=== PATIENT | female | born 1950 | race Caucasian/White ===

== ENCOUNTER 2019-02-03 17:10 | Observation (INO) | payer BC, MEDICARE ==
[2019-02-03] MEDS ORDERED: MORPHINE SULFATE 4 MG/ML SYRINGE IM STA (17:42)
--- NOTE | 2019-02-03 17:46 | ED ---
General Adult HPI - General Chief complaint: Back Pain/Injury Stated complaint: Back pain Time Seen by Provider: 02/03/19 17:26 Source: patient, EMS, RN notes reviewed, old records reviewed Mode of arrival: EMS Limitations: physical limitation - History of Present Illness Initial comments: 68-year-old female patient past medical history of chronic lumbar back pain, CHF, COPD on home 02. hypertension, status post CABG presents to ED with exacerbation of lumbar back pain for approximately 2 months. Patient denies any recent falls or trauma. Patient states that this pain has been getting worse as time period. Patient reports that at times radiates down her right posterior leg. Patient states that she ambulates with a walker at home. Patient denies any saddle anesthesia, loss of bowel or bladder control, IV drug use, fevers or chills Systemic: Pt denies fatigue, fever/chills, rash. Pt denies weakness, night sweats, weight loss. Neuro: Pt denies headache, visual disturbances, syncope or pre-syncope. HEENT: Pt denies ocular discharge or irritation, otalgia, rhinorrhea, pharyngitis or notable lymphadenopathy. Cardiopulmonary: Pt denies chest pain, SOB, heart palpitations, dyspnea on exertion. Abdominal/GI: Pt denies abdominal pain, n/v/d. : Pt denies dysuria, burning w/ urination, frequency/urgency. Denies new onset urinary or bowel incontinence. MSK: Pt denies loss of strength or function in extremities. Neuro: Pt denies new onset weakness, paresthesias. - Related Data Home Medications Medication Instructions Recorded Confirmed Allopurinol [Zyloprim] 100 mg PO DAILY 02/03/19 02/03/19 Aspirin [[place] Aspirin EC] 81 mg PO DAILY 02/03/19 02/03/19 Carbidopa/Levodopa [Sinemet 25-250 3 - 4 tab PO DAILY PRN 02/03/19 02/03/19 mg] Escitalopram [Lexapro] 20 mg PO DAILY 02/03/19 02/03/19 Gabapentin [Neurontin] 100 mg PO TID 02/03/19 02/03/19 Hydrocodone/Acetaminophen [[place] 1 tab PO Q6HR PRN 02/03/19 02/03/19 7.5-325] Isosorbide Mononitrate ER [Imdur] 30 mg PO DAILY 02/03/19 02/03/19 Meclizine [Antivert] 25 - 50 mg PO BID 02/03/19 02/03/19 Metoprolol Succinate [Toprol XL] 25 mg PO DAILY 02/03/19 02/03/19 Modafinil [Provigil] 100 mg PO DAILY PRN 02/03/19 02/03/19 Omeprazole [PriLOSEC] 20 mg PO AC-BID 02/03/19 02/03/19 rOPINIRole HCL [Requip] 2 mg PO DAILY 02/03/19 02/03/19 traMADol HCl [Ultram] 50 mg PO BID PRN 02/03/19 02/03/19 Allergies Allergy/AdvReac Type Severity Reaction Status Date / Time Fish Containing Products Allergy Verified 02/03/19 18:46 [Fish] Review of Systems ROS Statement: Those systems with pertinent positive or pertinent negative responses have been documented in the HPI. ROS Other: All systems not noted in ROS Statement are negative. Past Medical History Past Medical History: Cancer, Heart Failure, Hypertension, Myocardial Infarction ([place]) Additional Past Medical History / Comment(s): Back pain History of Any Multi-Drug Resistant Organisms: None Reported Past Surgical History: Coronary Bypass/CABG, Pacemaker Additional Past Surgical History / Comment(s): R Nephrectomy Past Psychological History: Anxiety Smoking Status: Never smoker Past Alcohol Use History: None Reported Past Drug Use History: None Reported General Exam - General Exam Comments Initial Comments: Constitutional: NAD, AOX3, Pt has pleasant affect. HEENT: NC/AT, trachea midline, neck supple, no lymphadenopathy. Posterior pharynx non erythematous, without exudates. External ears appear normal, without discharge. Mucous membranes moist. Eyes PERRLA, EOM intact. There is no scleral icterus. No pallor noted. Cardiopulmonary: RRR, no murmurs, rubs or gallops, no JVD noted. Lungs CTAB in anterior and posterior adame. No peripheral edema. Abdominal exam: Abdomen soft and non-distended. Abdomen non-tender to palpation in all 4 quadrants. Bowel sounds active in LLQ. No hepatosplenomegaly. No ecchymosis Neuro: CN II-XII grossly intact. No nuchal rigidity. MSK: Lumbar spine mildly tender to palpation, no erythema or dischrage. Cervical thoracic spine nontender to palpation. No posterior calf tenderness bilaterally, homans sign negative bilaterally. Posterior tibialis and radial pulse +1 bilaterally. Sensation intact in upper and lower extremities. Full active ROM in upper and lower extremities, 5/5 stregnth. Limitations: physical limitation Course Vital Signs 02/03/19 02/03/19 02/03/19 17:31 20:41 22:26 Temperature 97.8 F Pulse Rate 70 82 74 Respiratory 18 18 16 Rate Blood Pressure 107/89 151/74 137/74 O2 Sat by Pulse 98 99 97 Oximetry Medical Decision Making - Medical Decision Making 68-year-old female patient past medical history of chronic lumbar back pain, CHF, COPD on home 02. hypertension, status post CABG presents to ED with exacerbation of lumbar back pain for approximately 2 months. Patient denies any recent falls or trauma. Patient states that this pain has been getting worse as time period. Patient reports that at times radiates down her right posterior leg. Patient states that she ambulates with a walker at home. Patient vital signs stable, afebrile. PHysical exam displayed: Lumbar spine mildly tender to palpation, no erythema or dischrage. Laboratory investigations revealed platelets of 77. CMP revealed mild hyperkalemia of 5.4. Plain film of lumbar spine and lumbar spine CT revealed nonacute L1 compression fracture. Patient unable to ambulate due to pain in back. Patient to be discharged for further evaluation and orthospine consult as well as PT/OT consult. Case discussed with Dr. Romano. - Lab Data Result diagrams: 02/03/19 19:25 02/03/19 19:25 Lab Results 02/03/19 02/03/19 Range/Units 19:25 19:25 WBC 4.3 (3.8-10.6) k/uL RBC 3.39 L (3.80-5.40) m/uL Hgb 11.0 L (11.4-16.0) gm/dL Hct 35.2 (34.0-46.0) % MCV 103.8 H (80.0-100.0) fL MCH 32.5 (25.0-35.0) pg MCHC 31.3 (31.0-37.0) g/dL RDW 16.7 H (11.5-15.5) % Plt Count 77 L (150-450) k/uL Neutrophils % 57 % Lymphocytes % 24 % Monocytes % 8 % Eosinophils % 7 % Basophils % 0 % Neutrophils # 2.5 (1.3-7.7) k/uL Lymphocytes # 1.1 (1.0-4.8) k/uL Monocytes # 0.3 (0-1.0) k/uL Eosinophils # 0.3 (0-0.7) k/uL Basophils # 0.0 (0-0.2) k/uL Hypochromasia Moderate Anisocytosis Slight Macrocytosis Moderate Sodium 142 (137-145) mmol/L Potassium 5.4 H (3.5-5.1) mmol/L Chloride 113 H (98-107) mmol/L Carbon Dioxide 24 (22-30) mmol/L Anion Gap 5 mmol/L BUN 35 H (7-17) mg/dL Creatinine 0.95 (0.52-1.04) mg/dL Est GFR (CKD-EPI)AfAm 71 (>60 ml/min/1.73 sqM) Est GFR (CKD-EPI)NonAf 61 (>60 ml/min/1.73 sqM) Glucose 82 (74-99) mg/dL Calcium 8.8 (8.4-10.2) mg/dL Total Bilirubin 0.7 (0.2-1.3) mg/dL AST 38 H (14-36) U/L ALT 23 (9-52) U/L Alkaline Phosphatase 183 H (38-126) U/L Total Protein 6.6 (6.3-8.2) g/dL Albumin 2.9 L (3.5-5.0) g/dL Disposition Clinical Impression: Compression fracture of L1 lumbar vertebra Disposition: ADMITTED IP TO THIS HOSP Condition: Fair Is patient prescribed a controlled substance at d/c from ED?: No
--- NOTE | 2019-02-03 18:17 | XR ---
EXAMINATION TYPE: XR lumbar spine 2 or 3V DATE OF EXAM: 02/03/2019 COMPARISON: NONE HISTORY: Low back pain TECHNIQUE: 3 views FINDINGS: The vertebra have normal alignment. There is degenerative disc spaces are intact throughout the lumbar spine. There is 25% anterior wedging of L1 vertebra that appears old. Sacroiliac joints a re intact. IMPRESSION: Moderate multilevel spondylosis. Old mild compression fracture L1. No acute fracture seen .
[2019-02-03] MEDS ORDERED: KETOROLAC 30 MG/ML 1 ML VIAL IVP STA (18:55)
[2019-02-03] MEDS ORDERED: MORPHINE SULFATE 4 MG/ML SYRINGE IV STA (19:59)
[2019-02-03] MEDS ORDERED: SODIUM CHLORIDE 0.9% 500 ML 500 ML IV STA (20:38)
[2019-02-03 20:55] LABS: Anisocytosis Slight; Basophils % (A) 0 %; Eosinophils # (A) 0.3 k/uL (0-0.7); Eosinophils % (A) 7 %; HCT 35.2 % (34.0-46.0); Hypochromasia Moderate; Lymphocytes # (A) 1.1 k/uL (1.0-4.8); Lymphocytes % (A) 24 %; MCH 32.5 pg (25.0-35.0); MCHC 31.3 g/dL (31.0-37.0); MCV 103.8 fL (80.0-100.0); Macrocytosis Moderate; Mean Platelet Volume 8.4; Monocytes # (A) 0.3 k/uL (0-1.0); Monocytes % (A) 8 %; Neutrophils # (A) 2.5 k/uL (1.3-7.7); Neutrophils % (A) 57 %; RBC 3.39 m/uL (3.80-5.40); RDW 16.7 % (11.5-15.5); WBC 4.3 k/uL (3.8-10.6)
[2019-02-03 20:56] LABS: Platelet Count 77 k/uL (150-450)
[2019-02-03 21:02] LABS: Albumin 2.9 g/dL (3.5-5.0); Calcium 8.8 mg/dL (8.4-10.2); Potassium 5.4 mmol/L (3.5-5.1); Total Bilirubin 0.7 mg/dL (0.2-1.3); Total Protein 6.6 g/dL (6.3-8.2)
--- NOTE | 2019-02-03 21:31 | CT ---
EXAMINATION TYPE: CT lumbar spine wo con DATE OF EXAM: 02/03/2019 9:02 PM COMPARISON: None HISTORY: pain lumbar region CT DLP: 1849 mGycm Automated exposure control for dose reduction was used. Unenhanced CT of the lumbar spine was performed. Bone and soft tissue window settings are submitted as well as coronal and sagittal reconstructions. There is degenerative disc space narrowing throughout the lumbar spine. There is hypertrophic spur fo rmation. There is multilevel vacuum disc. There is 20% compression deformity of L1 vertebral body. Th is appears old. There is no lumbar paraspinal mass. There is some pleural thickening and infiltrate a nd atelectasis at the posterior lung bases. There is no lumbar paraspinal mass. There is some muscle atrophy. There is apparent neurostimulator i mplanted posteriorly. IMPRESSION: Multilevel spondylotic changes. Old mild L1 compression fracture. No acute fracture seen.
[2019-02-03] MEDS ORDERED: ACETAMINOPHEN TAB 325 MG TAB PO PRN (22:07)
[2019-02-03] MEDS ORDERED: NALOXONE 0.4 MG/ML 1 ML VIAL IV PRN (22:07)
[2019-02-03] MEDS ORDERED: MODAFINIL 100 MG TAB PO PRN (23:33)
--- NOTE | 2019-02-03 23:47 | P.HPIM ---
History of Present Illness H&P Date: 02/03/19 Chief Complaint: right thigh pain , low back pain 5-year-old female with history of congestive heart failure, CAD status post CABG. And chronic low back pain. Patient presented to the hospital with gradual worsening of her low back pain. She claims that she had 8-10 falls over the past year she thinks is due to her narcolepsy as she falls asleep sometimes when she doesn't take her medications. Her last fall was 2 months ago. She denies sustaining any injuries during the last fall. However since then she continued to have right thigh pain radiating to the right foot and across to her back. She rated the pain as 10 out of 10 in severity symptoms improves with Aleve but so bad that's preventing her from sleeping. She denies any associated numbness or tingling in her feet. She uses a walker to ambulate at home for recently she's been having increased diffic ulties and walking to the bathroom due to severe pain. She otherwise denies any fevers or chills abdominal pain or chest pain denies any changes in her bowel habits nausea or vomiting Computed tomography scan of the lumbar spine done in the ED showed old mild compression fracture of L1. Patient admitted for pain control and evaluation by orthopedics Review of Systems Pertinent positives as noted in HPI. All other systems were reviewed and are negative Past Medical History Past Medical History: Cancer, Heart Failure, Hypertension, Myocardial Infarction ([place]) Additional Past Medical History / Comment(s): Back pain History of Any Multi-Drug Resistant Organisms: None Reported Past Surgical History: Coronary Bypass/CABG, Pacemaker Additional Past Surgical History / Comment(s): R Nephrectomy Past Psychological History: Anxiety Smoking Status: Never smoker Past Alcohol Use History: None Reported Past Drug Use History: None Reported - Past Family History Family Family Medical History: Coronary Artery Disease (CAD) Medications and Allergies Home Medications Medication Instructions Recorded Confirmed Type Allopurinol [Zyloprim] 100 mg PO DAILY 02/03/19 02/03/19 History Aspirin [[place] Aspirin EC] 81 mg PO DAILY 02/03/19 02/03/19 History Carbidopa/Levodopa [Sinemet 25-250 3 - 4 tab PO DAILY PRN 02/03/19 02/03/19 History mg] Escitalopram [Lexapro] 20 mg PO DAILY 02/03/19 02/03/19 History Gabapentin [Neurontin] 100 mg PO TID 02/03/19 02/03/19 History Hydrocodone/Acetaminophen [[place] 1 tab PO Q6HR PRN 02/03/19 02/03/19 History 7.5-325] Isosorbide Mononitrate ER [Imdur] 30 mg PO DAILY 02/03/19 02/03/19 History Meclizine [Antivert] 25 - 50 mg PO BID 02/03/19 02/03/19 History Metoprolol Succinate [Toprol XL] 25 mg PO DAILY 02/03/19 02/03/19 History Modafinil [Provigil] 100 mg PO DAILY PRN 02/03/19 02/03/19 History Omeprazole [PriLOSEC] 20 mg PO AC-BID 02/03/19 02/03/19 History rOPINIRole HCL [Requip] 2 mg PO DAILY 02/03/19 02/03/19 History traMADol HCl [Ultram] 50 mg PO BID PRN 02/03/19 02/03/19 History Allergies Allergy/AdvReac Type Severity Reaction Status Date / Time Fish Containing Products Allergy Verified 02/03/19 18:46 [Fish] Physical Exam Vitals: Vital Signs Temp Pulse Resp BP Pulse Ox 02/03/19 22:26 74 16 137/74 97 02/03/19 20:41 82 18 151/74 99 02/03/19 17:31 97.8 F 70 18 107/89 98 Intake and Output 02/03/19 02/03/19 02/03/19 06:59 14:59 22:59 Other: Weight 118.841 kg Constitutional: No acute distress, conversant, pleasant, morbidly obese Eyes: Anicteric sclerae, moist conjunctiva, no lid-lag Pupils equal round reactive to light ENMT: NC/AT Oropharynx clear, no erythema, exudates Neck: Supple, FROM, no masses, or JVD No carotid bruits No thyromegaly Lungs: Clear to auscultation Clear to percussion Normal respiratory effort, no accessory muscle use Cardiovascular: Heart regular in rate and rhythm, No murmurs, gallops, or rubs No peripheral edema Abdominal: Soft, obese limiting exam Nontender, no guarding, rebound or rigidity Abdomen moving with respiration Normoactive bowel sounds No palpable mass No abdominal wall hernia noted Skin: Chronic skin changes of her bilateral legs Normal temperature, tone, texture, turgor No induration No subcutaneous nodules No rash, lesions No ulcers Extremities: No digital cyanosis No clubbing Pedal pulses intact and symmetrical Radial pulses intact and symmetrical No calf tenderness Psychiatric: Alert and oriented to person, place and time Appropriate affect fair judgment Neuro Muscles Strength 4/5 in right lateral upper extremity and left lower extremity. Limited exam over right lower extremity due to severe pain. Straight leg raising was positive early on over the right leg Sensation to light touch grossly present throughout Cranial nerves II-XII grossly intact No focal sensory deficits Lymphatics: no palpable cervical or supraclavicular , or inguinal lymph nodes Results CBC & Chem 7: 02/03/19 19:25 02/03/19 19:25 Labs: Abnormal Lab Results - Last 24 Hours (Table) 02/03/19 02/03/19 Range/Units 19:25 19:25 RBC 3.39 L (3.80-5.40) m/uL Hgb 11.0 L (11.4-16.0) gm/dL MCV 103.8 H (80.0-100.0) fL RDW 16.7 H (11.5-15.5) % Plt Count 77 L (150-450) k/uL Potassium 5.4 H (3.5-5.1) mmol/L Chloride 113 H (98-107) mmol/L BUN 35 H (7-17) mg/dL AST 38 H (14-36) U/L Alkaline Phosphatase 183 H (38-126) U/L Albumin 2.9 L (3.5-5.0) g/dL Assessment and Plan Assessment: 68-year-old female with history of CAD, CABG, hypertension, CHF admitted under observation with anticipated length of stay less than 48 hours due to severe intractable lower back pain and right thigh pain, this been going on for 2 months and getting worse. Patient admitted for orthopedic evaluation. Computed tomography scan of the spine showed old compression fracture of L1. Plan: Intractable low back pain Pain control with morphine Orthopedic evaluation pending CT of the lumbar spine showed old mild compression fracture of L1 Mild hyperkalemia Continue to monitor, repeat levels in the morning Chronic conditions currently stable Hypertension Restless leg CAD status post CABG Continue home meds Morbid obesity, debility Patient uses assistive device walker for ambulation DVT prophylaxis heparin subcu 3 times a day Surrogate decision-maker: Patient CODE STATUS: Full code Discussed with: Patient, ER, RN Anticipated discharge: <48- hours Anticipated discharge place: home A total of 55minutes was spent on the care of this complex patient more than 50% of the time was spent in counseling and care coordination.
[2019-02-04] MEDS ORDERED: HEPARIN SODIUM,PORCINE 5,000 UNIT/ML 1 ML VIAL SQ SCH
[2019-02-04] MEDS: MORPHINE SULFATE 4 MG/ML SYRINGE IV PRN ×3 (06:25→22:44)
[2019-02-04] MEDS: ISOSORBIDE MONONITRATE ER 30 MG TAB.ER.24H PO SCH (07:33)
[2019-02-04] MEDS: METOPROLOL SUCCINATE (ER) 25 MG TAB.ER.24H PO SCH (07:33)
[2019-02-04] MEDS: ASPIRIN 81 MG PO SCH (07:33)
[2019-02-04] MEDS: GABAPENTIN 100 MG CAP PO SCH ×3 (07:33→21:29)
[2019-02-04] MEDS: PANTOPRAZOLE 40 MG TABLET PO SCH ×2 (07:33→16:23)
[2019-02-04] MEDS: ESCITALOPRAM 20 MG TAB PO SCH (07:34)
[2019-02-04] MEDS: ALLOPURINOL 100 MG TAB PO SCH (07:34)
[2019-02-04 07:41] LABS: Calcium 8.7 mg/dL (8.4-10.2)
[2019-02-04 07:43] LABS: Anisocytosis Slight; Basophils % (A) 0 %; Eosinophils # (A) 0.3 k/uL (0-0.7); Eosinophils % (A) 8 %; HCT 32.4 % (34.0-46.0); HGB 10.5 gm/dL (11.4-16.0); Hypochromasia Slight; Lymphocytes % (A) 25 %; MCH 33.9 pg (25.0-35.0); MCHC 32.5 g/dL (31.0-37.0); MCV 104.3 fL (80.0-100.0); Macrocytosis Moderate; Mean Platelet Volume 7.8; Monocytes # (A) 0.4 k/uL (0-1.0); Monocytes % (A) 9 %; Neutrophils # (A) 2.2 k/uL (1.3-7.7); Neutrophils % (A) 54 %; RBC 3.11 m/uL (3.80-5.40); RDW 17.1 % (11.5-15.5)
[2019-02-04 07:46] LABS: Platelet Count 77 k/uL (150-450)
[2019-02-04] MEDS: HYDROcodone/APAP 7.5-325MG 1 EACH TAB PO PRN ×2 (10:47→16:05)
--- NOTE | 2019-02-04 11:59 | P.PN ---
Subjective Progress Note Date: 02/04/19 The patient still in bed when seen and examined, reports that she has not worked with physical therapy as yet, still complain of lower back and right thigh pain moderate rated at a 5. Reports her baseline she ambulates with a walker at home unassisted. She also does have as we are at home and it has a caregiver that comes out at least once a day Thursday through Fridays. No acute events overnight Objective - Vital Signs Vital signs: Vital Signs Temp 98.6 F 02/04/19 06:50 Pulse 75 02/04/19 06:50 Resp 14 02/04/19 06:50 BP 143/69 02/04/19 06:50 Pulse Ox 96 02/04/19 06:50 Intake & Output 02/03/19 02/04/19 02/04/19 18:59 06:59 18:59 Intake Total 90 420 Balance 90 420 Weight 118.841 kg Intake: Oral 90 420 Other: # Voids 2 - Exam Constitutional: No acute distress, conversant, pleasant Eyes: Anicteric sclerae, moist conjunctiva, no lid-lag, PERRLA ENMT: NC/AT,Oropharynx clear, no erythema, exudates Neck:Supple, FROM, no masses, or JVD, No carotid bruits; No thyromegaly Lungs: Clear to auscultation, Clear to percussion, Normal respiratory effort, no accessory muscle use Cardiovascular: Heart regular in rate and rhythm, No murmurs, gallops, or rubs no peripheral edema Abdominal: Soft Nontender, nom distended, no guarding, no rebound or rigidity, Normoactive bowel sounds No hepatomegaly, No splenomegaly, No palpable mass No abdominal wall hernia noted Skin: Normal temperature, tone, texture, turgor, No induration No subcutaneous nodules, No rash, lesions, No ulcers Psychiatric: Alert and oriented to person, place and time, Appropriate affect Intact judgement Neuro: Muscles Strength 5/5 in all 4 extremities, Sensation to light touch grossly present throughout, Cranial nerves II-XII grossly intact. No focal sensory deficits - Labs CBC & Chem 7: 02/04/19 06:27 02/04/19 06:27 Labs: Abnormal Lab Results - Last 24 Hours (Table) 02/03/19 02/03/19 02/04/19 Range/Units 19:25 19:25 06:27 RBC 3.39 L (3.80-5.40) m/uL Hgb 11.0 L (11.4-16.0) gm/dL Hct (34.0-46.0) % MCV 103.8 H (80.0-100.0) fL RDW 16.7 H (11.5-15.5) % Plt Count 77 L (150-450) k/uL Potassium 5.4 H (3.5-5.1) mmol/L Chloride 113 H 112 H (98-107) mmol/L BUN 35 H 30 H (7-17) mg/dL Glucose 73 L (74-99) mg/dL AST 38 H (14-36) U/L Alkaline Phosphatase 183 H (38-126) U/L Albumin 2.9 L (3.5-5.0) g/dL 02/04/19 Range/Units 06:27 RBC 3.11 L (3.80-5.40) m/uL Hgb 10.5 L (11.4-16.0) gm/dL Hct 32.4 L (34.0-46.0) % MCV 104.3 H (80.0-100.0) fL RDW 17.1 H (11.5-15.5) % Plt Count 77 L (150-450) k/uL Potassium (3.5-5.1) mmol/L Chloride (98-107) mmol/L BUN (7-17) mg/dL Glucose (74-99) mg/dL AST (14-36) U/L Alkaline Phosphatase (38-126) U/L Albumin (3.5-5.0) g/dL Assessment and Plan (1) Intractable low back pain Narrative/Plan: * Continue pain control with morphine and Neurontin/hydrocodone * Awaiting orthopedic eval Current Visit: Yes Status: Acute Code(s): M54.5 - LOW BACK PAIN SNOMED Code(s): 82064997221452579 (2) Compression fracture of L1 lumbar vertebra Narrative/Plan: * Awaiting orthopedic evaluation consider MRI * CT suggesting 20% compression deformity of L1 vertebral body that appears old Current Visit: Yes Status: Acute Code(s): S32.010A - [place] COMPRESSION FRACTURE OF FIRST LUMBAR VERTEBRA, INIT SNOMED Code(s): 497734970 (3) Hyperkalemia Narrative/Plan: * Resolved Current Visit: Yes Status: Resolved Code(s): E87.5 - HYPERKALEMIA SNOMED Code(s): 13997876 (4) Essential hypertension Narrative/Plan: * Blood pressure stable controlled on current regimen of metoprolol and Imdur Current Visit: Yes Status: Acute Code(s): I10 - ESSENTIAL (PRIMARY) HYPERTENSION SNOMED Code(s): 05494864 Plan: * Disposition * Follow-up with PT OT recommendations follow-up evaluation by orthopedic surgery
--- NOTE | 2019-02-04 12:23 | P.CNOR ---
History of Present Illness - [facility] Consult date: 02/04/19 Requesting physician: Brando Farnsworth Consult reason: fracture (L1 compression fracture deformity), low back pain History of present illness: Patient is a very pleasant 68-year-old female who is seen and examined at bedside for further evaluation of ongoing low back pain with some lower extremity radiculopathy. She states her back pain has been worsening over the past 2 months. She has sustained a few falls over the past couple months but does not know the exact timing. She is unaware of any previous fracture in her lumbar spine. She does have some pain in the right buttock that radiates down the right posterior thigh. At this time she states she does not want to undergo any surgical intervention or lumbar spine. She does have some difficulty with ambulation in the outpatient setting using a walker to aid in ambulation. She has had increased difficulty ambulation given her back pain. She does have a history of CABG performed in 2004. She does have some trophic skin changes bilateral lower extremities. She states her back pain is severe and exacerbated with coughing, sneezing, and any movements of the lumbar spine. Her pain is better controlled while in bed. She presented to the emergency department yesterday, 02/03/2015, for further evaluation due to her pain. X-rays of lumbosacral spine CT of the lumbar spine was performed. Imaging shows evidence of an L1 compression fracture deformity which they felt is chronic. Patient states she was never previously treated for a spine fracture. Patient states she does have an appointment with the spine surgeon at [facility]. She does have a history of bladder stimulator placement. Past Medical History Past Medical History: Cancer, Heart Failure, Hypertension, Myocardial Infarction ([place]) Additional Past Medical History / Comment(s): Back pain Last Myocardial Infarction Date:: 2004 History of Any Multi-Drug Resistant Organisms: None Reported Past Surgical History: Coronary Bypass/CABG, Pacemaker Additional Past Surgical History / Comment(s): R Nephrectomy Type of Cardiac Device: Permanent Pacemaker Device Placement Date:: 2006 Past Psychological History: Anxiety Smoking Status: Never smoker Past Alcohol Use History: None Reported Past Drug Use History: None Reported - Past Family History Family Family Medical History: Coronary Artery Disease (CAD) Medications and Allergies Home Medications Medication Instructions Recorded Confirmed Type Allopurinol [Zyloprim] 100 mg PO DAILY 02/03/19 02/03/19 History Aspirin [[place] Aspirin EC] 81 mg PO DAILY 02/03/19 02/03/19 History Carbidopa/Levodopa [Sinemet 25-250 3 - 4 tab PO DAILY PRN 02/03/19 02/03/19 History mg] Escitalopram [Lexapro] 20 mg PO DAILY 02/03/19 02/03/19 History Gabapentin [Neurontin] 100 mg PO TID 02/03/19 02/03/19 History Hydrocodone/Acetaminophen [[place] 1 tab PO Q6HR PRN 02/03/19 02/03/19 History 7.5-325] Isosorbide Mononitrate ER [Imdur] 30 mg PO DAILY 02/03/19 02/03/19 History Meclizine [Antivert] 25 - 50 mg PO BID 02/03/19 02/03/19 History Metoprolol Succinate [Toprol XL] 25 mg PO DAILY 02/03/19 02/03/19 History Modafinil [Provigil] 100 mg PO DAILY PRN 02/03/19 02/03/19 History Omeprazole [PriLOSEC] 20 mg PO AC-BID 02/03/19 02/03/19 History rOPINIRole HCL [Requip] 2 mg PO DAILY 02/03/19 02/03/19 History traMADol HCl [Ultram] 50 mg PO BID PRN 02/03/19 02/03/19 History Allergies Allergy/AdvReac Type Severity Reaction Status Date / Time Fish Containing Products Allergy Verified 02/03/19 18:46 [Fish] Physical Examination Physical exam: Patient is awake, alert, and oriented 3 Vital signs stable Good chest excursion with deep inspiration and expiration Examination of lumbar spine reveals skin is intact with no abrasions, lac erations, or bruises; no erythema, purulence or signs of infection Significant pain with palpation along the midline of the upper lumbar spine Dorsiflexion, plantarflexion, and extensor hallucis longus positive sustained bilaterally Lower extremity strength globally weaker bilaterally No lower extremity hyperreflexia bilaterally Evidence of trophic skin changes of the bilateral lower extremities No signs or symptoms of DVT; no calf pain No pain with internal and external rotation of the hips bilaterally Neurovascularly intact Results Pertinent studies: CT of the lumbar spine taken on 02/03/2019: L1 compression fracture deformity with approximately 25% height loss at the superior endplate; severe degenerative disc disease and moderate spondylosis throughout lumbar spine; anterior osteophytic spurring T11-L2; T12-L1 degenerative disc disease; L5-S1 spondylolisthesis; L3-4 complete disc height loss; mild degenerative curve; evidence of bladder stimulator placement; evidence of spinal canal stenosis with some neural foraminal stenosis L2-S1 X-rays lumbar spine taken on 02/03/2019: L1 compression fracture deformity with approximately 25% height loss at the superior endplate; severe degenerative disc disease and moderate spondylosis throughout lumbar spine; anterior osteophytic spurring T11-L2; T12-L1 degenerative disc disease; L5-S1 spondylolisthesis; L3-4 complete disc height loss; mild degenerative curve; evidence of bladder stimulator placement; - Labs Labs: Abnormal Lab Results - Last 24 Hours (Table) 02/03/19 02/03/19 02/04/19 Range/Units 19:25 19:25 06:27 RBC 3.39 L (3.80-5.40) m/uL Hgb 11.0 L (11.4-16.0) gm/dL Hct (34.0-46.0) % MCV 103.8 H (80.0-100.0) fL RDW 16.7 H (11.5-15.5) % Plt Count 77 L (150-450) k/uL Potassium 5.4 H (3.5-5.1) mmol/L Chloride 113 H 112 H (98-107) mmol/L BUN 35 H 30 H (7-17) mg/dL Glucose 73 L (74-99) mg/dL AST 38 H (14-36) U/L Alkaline Phosphatase 183 H (38-126) U/L Albumin 2.9 L (3.5-5.0) g/dL 02/04/19 Range/Units 06:27 RBC 3.11 L (3.80-5.40) m/uL Hgb 10.5 L (11.4-16.0) gm/dL Hct 32.4 L (34.0-46.0) % MCV 104.3 H (80.0-100.0) fL RDW 17.1 H (11.5-15.5) % Plt Count 77 L (150-450) k/uL Potassium (3.5-5.1) mmol/L Chloride (98-107) mmol/L BUN (7-17) mg/dL Glucose (74-99) mg/dL AST (14-36) U/L Alkaline Phosphatase (38-126) U/L Albumin (3.5-5.0) g/dL H & H 02/03/19 02/04/19 Range/Units 19:25 06:27 Hgb 11.0 L 10.5 L (11.4-16.0) gm/dL Hct 35.2 32.4 L (34.0-46.0) % Result Diagrams: 02/04/19 06:27 02/04/19 06:27 Assessment and Plan Assessment: Assessment: Intractable low back pain L1 compression fracture deformity with approximately 25% height loss of superior endplate which is felt to be chronic based on imaging L5-S1 degenerative disc disease Lumbar and lumbosacral spinal canal stenosis Lumbar and lumbosacral degenerative disc disease Lumbar and lumbosacral set spondylosis Right lower extremity radiculopathy Thoracic and lumbar osteophytic spurring History of CABG in 2004 History of bladder stimulator placement Morbid obesity History of hypertension, heart failure, and myocardial infarction (1) Lumbar degenerative disc disease Current Visit: Yes Status: Acute Code(s): M51.36 - OTHER INTERVERTEBRAL DISC DEGENERATION, LUMBAR REGION SNOMED Code(s): 68572914 (2) Lumbar facet arthropathy Current Visit: Yes Status: Acute Code(s): M47.816 - SPONDYLOSIS W/O MYELOPATHY OR RADICULOPATHY, LUMBAR REGION SNOMED Code(s): 084411088 (3) Spondylolisthesis at L5-S1 level Current Visit: Yes Status: Acute Code(s): M43.17 - SPONDYLOLISTHESIS, LUMBOSACRAL REGION SNOMED Code(s): 955238983 (4) Intractable low back pain Current Visit: Yes Status: Acute Code(s): M54.5 - LOW BACK PAIN SNOMED Cod e(s): 16515293868972499 (5) Lumbar back pain with radiculopathy affecting right lower extremity Current Visit: Yes Status: Acute Code(s): M54.16 - RADICULOPATHY, LUMBAR REGION SNOMED Code(s): 119260016 (6) History of coronary artery bypass graft Current Visit: Yes Status: Acute Code(s): Z95.1 - PRESENCE OF AORTOCORONARY BYPASS GRAFT SNOMED Code(s): 021313329 (7) Morbid obesity with BMI of 50.0-59.9, adult Current Visit: Yes Status: Acute Code(s): E66.01 - MORBID (SEVERE) OBESITY DUE TO EXCESS CALORIES; Z68.43 - BODY MASS INDEX (BMI) 50-59.9, ADULT SNOMED Code(s): 194710295 (8) History of hypertension Current Visit: Yes Status: Acute Code(s): Z86.79 - PERSONAL HISTORY OF OTHER DISEASES OF THE CIRCULATORY SYSTEM SNOMED Code(s): 782893857 (9) History of myocardial infarction Current Visit: Yes Status: Acute Code(s): I25.2 - OLD MYOCARDIAL INFARCTION SNOMED Code(s): 205077311 (10) History of heart failure Current Visit: Yes Status: Acute Code(s): Z86.79 - PERSONAL HISTORY OF OTHER DISEASES OF THE CIRCULATORY SYSTEM SNOMED Code(s): 035712009 (11) Compression fracture of L1 lumbar vertebra Current Visit: Yes Status: Acute Code(s): S32.010A - WEDGE COMPRESSION FRACTURE OF FIRST LUMBAR VERTEBRA, INIT SNOMED Code(s): 004301451 (12) Unable to ambulate Current Visit: Yes Status: Acute Code(s): R26.2 - DIFFICULTY IN WALKING, NOT ELSEWHERE CLASSIFIED SNOMED Code(s): 139060184 Plan: Plan: 1. Patient has been discussed in detail with Dr. Panchito Oro. Patient has been experiencing worsening low back pain over the past 2 months. She presents emergency prior yesterday due to her severe symptoms. Her symptoms are exacerbated with coughing, sneezing, bending, twisting of the spine. Imaging taken emergency department does show evidence of L1 compression fracture deformity which they feel may be chronic in nature. Patient's fracture does appear to be more chronic in nature on imgaing upon our review. She has been experiencing severe debilitating LBP. She does have evidence of significant degenerative changes at her lumbar spine. Given her significant pain and mutli- level degenerative changes at her lumbar and lumbosacral spine, we will plan for bracing. A prescription for an Exos LSO brace will be written, signed, and provided to case management. Once this brace is delivered and fitted appropriately, brace patient may be worn for comfort and support as needed. Once this brace is delivered and fitted properly, patient we clear for discharge from an orthopedic spine standpoint. Following discharge, patient may follow-up with Brayden Myrick PA-C or Dr. Panchito Oro at [facility] in approximately 2-3 weeks for further evaluation. She may also plan to follow with the surgeon as scheduled at [facility]. 2. We will plan for consultation with pain management to discuss possible treatment options including the possibility of injections given her other significant degenerative changes at her lumbar and lumbosacral spine along with right lower extremity radiculopathy symptoms 3. Patient will continue to be seen and examined by medicine for further treatment evaluation of her other medical diagnoses Time with Patient: Greater than 30 (Including obtaining history, physical examination, reviewing of imaging, and dictation.)
--- NOTE | 2019-02-04 16:03 | P.PAINCN ---
History of Present Illness - Reason for Consult Consult date: 02/04/19 - History of Present Illness This is 68 years old female with a few month history of severe low back pain with radiation to the lower extremities, right side mainly, started after she had a few falling incident, the intensity of the pain increased over the last 2 months, the pain is constant and increases with any activity and currently patient not able to ambulate because of the intensity of the pain, computed tomography scan of the lumbar spine done showed compression fracture of the lumbar spine and multilevel lumbar spondylosis Past Medical History Past Medical History: Cancer, Heart Failure, Hypertension, Myocardial Infarction ([place]) Additional Past Medical History / Comment(s): Back pain Last Myocardial Infarction Date:: 2004 History of Any Multi-Drug Resistant Organisms: None Reported Past Surgical History: Coronary Bypass/CABG, Pacemaker Additional Past Surgical History / Comment(s): R Nephrectomy Type of Cardiac Device: Permanent Pacemaker Device Placement Date:: 2006 Past Psychological History: Anxiety Smoking Status: Never smoker Past Alcohol Use History: None Reported Past Drug Use History: None Reported - Past Family History Family Family Medical History: Coronary Artery Disease (CAD) Medications and Allergies Home Medications Medication Instructions Recorded Confirmed Type Allopurinol [Zyloprim] 100 mg PO DAILY 02/03/19 02/03/19 History Aspirin [[place] Aspirin EC] 81 mg PO DAILY 02/03/19 02/03/19 History Carbidopa/Levodopa [Sinemet 25-250 3 - 4 tab PO DAILY PRN 02/03/19 02/03/19 History mg] Escitalopram [Lexapro] 20 mg PO DAILY 02/03/19 02/03/19 History Gabapentin [Neurontin] 100 mg PO TID 02/03/19 02/03/19 History Hydrocodone/Acetaminophen [[place] 1 tab PO Q6HR PRN 02/03/19 02/03/19 History 7.5-325] Isosorbide Mononitrate ER [Imdur] 30 mg PO DAILY 02/03/19 02/03/19 History Meclizine [Antivert] 25 - 50 mg PO BID 02/03/19 02/03/19 History Metoprolol Succinate [Toprol XL] 25 mg PO DAILY 02/03/19 02/03/19 History Modafinil [Provigil] 100 mg PO DAILY PRN 02/03/19 02/03/19 History Omeprazole [PriLOSEC] 20 mg PO AC-BID 02/03/19 02/03/19 History rOPINIRole HCL [Requip] 2 mg PO DAILY 02/03/19 02/03/19 History traMADol HCl [Ultram] 50 mg PO BID PRN 02/03/19 02/03/19 History Allergies Allergy/AdvReac Type Severity Reaction Status Date / Time Fish Containing Products Allergy Verified 02/03/19 18:46 [Fish] Physical Exam Vitals: Vital Signs Temp Pulse Pulse Resp BP BP Pulse Ox 02/04/19 06:50 98.6 F 75 14 143/69 96 02/03/19 23:15 97.9 F 62 20 132/69 94 L 02/03/19 22:26 74 16 137/74 97 02/03/19 20:41 82 18 151/74 99 02/03/19 17:31 97.8 F 70 18 107/89 98 Intake and Output 02/03/19 02/04/19 02/04/19 22:59 06:59 14:59 Intake Total 90 420 Balance 90 420 Intake: Oral 90 420 Other: # Voids 2 Weight 118.841 kg Physical Examinations : -Constitutiona : Cooperative , not in acute distress . -HEENT : nech ; supple , no Lymphadenopathy , normal thyroid size . eyes : no ptosis , no icterus, no photophobia . ENT : normal of hearing , normal oropharynx , no Thrush . - Respiratory : Chest clear to auscultations Bilaterally , no wheezing , no Rhonchi . - Cardiovascula : regular rate and rhythem , S1 , S2 , no S3 , no S4. - Gastrointestina : abdomen soft no tenderness , bowel sounds , no organomegally . - Genitourinary : Defferred . - neurologic : Cranial nerve II to XII intact , no focal neurological deffecit . -psychatric : alert , oriented X 3 , appropriate affect , intact judgment and insight . -Lymphatic : no Lymphadenopathy . - musculoskeltal : Lumber spine moter stegnth lower extremities ,thigh and legs 3-4/5 Right side , 4/5 Left side deep tendon reflexes : normal Knee Jerk , normal ankle Jerk positive lumber facet Loading Test Range of motion of the lumbar spine Flexion 30 degrees, extension 10 degrees strait leg raising test , positive at degree Fabere test positive RT and positive LT . Sever tenderness over the Sacroiliac joint on the R and L sides [place] test positive bilaterally. Seated flexion test positive bilaterally. Multiple trigger pointsin the lumbar paravertebral muscles. Results CBC & Chem 7: 02/04/19 06:27 02/04/19 06:27 Labs: Abnormal Lab Results - Last 24 Hours (Table) 02/03/19 02/03/19 02/04/19 Range/Units 19:25 19:25 06:27 RBC 3.39 L (3.80-5.40) m/uL Hgb 11.0 L (11.4-16.0) gm/dL Hct (34.0-46.0) % MCV 103.8 H (80.0-100.0) fL RDW 16.7 H (11.5-15.5) % Plt Count 77 L (150-450) k/uL Potassium 5.4 H (3.5-5.1) mmol/L Chloride 113 H 112 H (98-107) mmol/L BUN 35 H 30 H (7-17) mg/dL Glucose 73 L (74-99) mg/dL AST 38 H (14-36) U/L Alkaline Phosphatase 183 H (38-126) U/L Albumin 2.9 L (3.5-5.0) g/dL 02/04/19 Range/Units 06:27 RBC 3.11 L (3.80-5.40) m/uL Hgb 10.5 L (11.4-16.0) gm/dL Hct 32.4 L (34.0-46.0) % MCV 104.3 H (80.0-100.0) fL RDW 17.1 H (11.5-15.5) % Plt Count 77 L (150-450) k/uL Potassium (3.5-5.1) mmol/L Chloride (98-107) mmol/L BUN (7-17) mg/dL Glucose (74-99) mg/dL AST (14-36) U/L Alkaline Phosphatase (38-126) U/L Albumin (3.5-5.0) g/dL Comments: Computed tomography scan of the lumbar spine compression fracture at L1 and multilevel lumbar spondylosis. Assessment and Plan Plan: Assessment and plan= severe low back pain secondary to multifactorial causes, depression fracture of the lumbar spine, lumbar degenerative disc disease, lumbar spondylosis, myofascial pain syndrome lumbar area, patient could benefit from lumbar epidural steroid injections, and at the same time we will do a trigger point injection lumbar paravertebral muscles, procedure risk and benefits discussed with the patient she agreed with proceeding. Time with Patient: Greater than 30 PQRS Measure Charge Sheet PQRS Narrative: Smoking Status Never smoker Do You Want the Pneumonia Vaccine Up to Date Vaccine AT THIS TIME? Blood Pressure [Right Arm] 143/69 Blood Pressure 137/74 Pain Intensity [Bilateral Leg] 4 Pain Intensity 9 Pain Scale Used Numeric (1 - 10) Scale Used Numeric (1 - 10) Home Medications: Ambulatory Orders Allopurinol [Zyloprim] 100 mg PO DAILY 02/03/19 Aspirin [[place] Aspirin EC] 81 mg PO DAILY 02/03/19 Carbidopa/Levodopa [Sinemet 25-250 mg] 3 - 4 tab PO DAILY PRN 02/03/19 Escitalopram [Lexapro] 20 mg PO DAILY 02/03/19 Gabapentin [Neurontin] 100 mg PO TID 02/03/19 Hydrocodone/Acetaminophen [[place] 7.5-325] 1 tab PO Q6HR PRN 02/03/19 Isosorbide Mononitrate ER [Imdur] 30 mg PO DAILY 02/03/19 Meclizine [Antivert] 25 - 50 mg PO BID 02/03/19 Metoprolol Succinate [Toprol XL] 25 mg PO DAILY 02/03/19 Modafinil [Provigil] 100 mg PO DAILY PRN 02/03/19 Omeprazole [PriLOSEC] 20 mg PO AC-BID 02/03/19 rOPINIRole HCL [Requip] 2 mg PO DAILY 02/03/19 traMADol HCl [Ultram] 50 mg PO BID PRN 02/03/19
[2019-02-04] MEDS ORDERED: LACTATED RINGERS 1,000 ML IV ONE ×2 (16:50)
[2019-02-04] MEDS ORDERED: methylPREDNISolone ACETATE 80 MG/ML 1 ML VIAL MISCELLANE ONE (17:08)
[2019-02-04] MEDS ORDERED: BUPIVACAINE (PF) 0.25% 30 ML VIAL MISCELLANE ONE (17:08)
--- NOTE | 2019-02-04 17:27 | P.PCN ---
Date of Procedure: 02/04/19 Procedure(s) Performed: PREOPERATIVE DIAGNOSIS: 1- Lumbar Degenerative Disc Diseases 2-Lumbar spondylosis . 3-compression fracture lumbar spine. 4-myofascial pain syndrome lumbar area. POSTOPERATIVE DIAGNOSIS: Same as preoperative diagnosis. PROCEDURE 1. Lumbar epidural steroid injection under fluoroscopic guidance at the L5-S1 level. 2. Trigger point injections lumbar paravertebral muscles , 1 on the right side and 1 on the left side ANESTHESIA: Local with 1% lidocaine 3 ml . EBL: Minimal PROCEDURE INDICATION: The patient with low back pain and radiculitis symptoms unresponsive to conservative treatment. Procedure risk and benefits discussed with the patient she agreed with the procedure PROCEDURE DESCRIPTION / TECHNIQUE: The patient was seen and identified in the preoperative area. Risks, benefits, complications including but not limited to infections ,bleeding ,allergic reaction to the medications ,nerve damage and not complete pain releife , and alternatives were discussed with the patient. The patient agreed to proceed with the procedure and signed the consent. IV was started, and vital signs were stable. Patient and the procedure area, and time out was completed. The patient was placed in the sitting positions. The lumbosacral area was prepped and draped in the usual sterile fashion.ere closely monitored during the procedure.. Vital signs was monitered during the entire procedure. the L5-S1 interlaminar space was identified and the skin over this site was marked and then infiltrated with 1% lidocaine subcutaneously. Subsequently, a 20-gauge Tuohy epidural needle was inserted and advanced toward the epidural space using the ``Loss of resistance technique , after negative aspiration for blood and CSF and in the absence of paresthesias. Again after negative aspiration, a 6 ml mixture containing 80 mg of Depo-medrol , and 2 ml of preservative free Normal Saline, and 2 ml of preservative free lidocaine 1% solution was injected , Needle was withdrawn intact, Syeda trigger point injected with bupivacaine 0.25% , one trigger point injected on the right side lumbar paravertebral muscle and one trigger point injected on the left side lumbar paravertebral muscles I injected 6 mL at each trigger point after negative aspiration using 25-gauge needle , and there was no paresthesia during the injection Patient tolerated the procedure well without any complications. COMPLICATIONS: None DISPOSITION / PLANS: The patient was placed in a supine positions . The patient will schedule a follow up in the clinic in 2-4 weeks.
[2019-02-05] MEDS: MORPHINE SULFATE 4 MG/ML SYRINGE IV PRN (05:19)
[2019-02-05] MEDS: PANTOPRAZOLE 40 MG TABLET PO SCH ×2 (09:10→17:14)
[2019-02-05] MEDS: ALLOPURINOL 100 MG TAB PO SCH (09:10)
[2019-02-05] MEDS: METOPROLOL SUCCINATE (ER) 25 MG TAB.ER.24H PO SCH (09:10)
[2019-02-05] MEDS: GABAPENTIN 100 MG CAP PO SCH ×3 (09:10→20:21)
[2019-02-05] MEDS: ASPIRIN 81 MG PO SCH (09:10)
[2019-02-05] MEDS: ESCITALOPRAM 20 MG TAB PO SCH (09:10)
[2019-02-05] MEDS: ISOSORBIDE MONONITRATE ER 30 MG TAB.ER.24H PO SCH (09:10)
[2019-02-05] MEDS: HYDROcodone/APAP 7.5-325MG 1 EACH TAB PO PRN ×2 (09:13→20:21)
--- NOTE | 2019-02-05 09:13 | P.PN ---
Subjective Progress Note Date: 02/05/19 Principal diagnosis: L1 compression fracture Patient is a very pleasant 68-year-old female who is seen and examined at bedside for further evaluation of ongoing low back pain with some lower extremity radiculopathy. She states her back pain has been worsening over the past 2 months. She has sustained a few falls over the past couple months but does not know the exact timing. She is unaware of any previous fracture in her lumbar spine. She does have some pain in the right buttock that radiates down the right posterior thigh. At this time she states she does not want to undergo any surgical intervention or lumbar spine. She does have some difficulty with a mbulation in the outpatient setting using a walker to aid in ambulation. She has had increased difficulty ambulation given her back pain. She does have a history of CABG performed in 2004. She does have some trophic skin changes bilateral lower extremities. She states her back pain is severe and exacerbated with coughing, sneezing, and any movements of the lumbar spine. Her pain is better controlled while in bed. She presented to the emergency department yesterday, 02/03/2015, for further evaluation due to her pain. X-rays of lumbosacral spine CT of the lumbar spine was performed. Imaging shows evidence of an L1 compression fracture deformity which they felt is chronic. Patient states she was never previously treated for a spine fracture. Patient states she does have an appointment with the spine surgeon at [facility]. She does have a history of bladder stimulator placement. Today she states that her pain is improved. The brace is at bedside. She has n ot yet worn the brace. She has no new complaints or concerns today. Objective - Vital Signs Vital signs: Vital Signs Temp 98.0 F 02/05/19 07:45 Pulse 68 02/05/19 07:45 Resp 16 02/05/19 07:45 BP 148/91 02/05/19 07:45 Pulse Ox 96 02/05/19 07:45 Intake & Output 02/04/19 02/05/19 02/05/19 18:59 06:59 18:59 Intake Total 520 100 Balance 520 100 Intake: IV 100 Oral 420 100 Other: # Voids 3 1 1 - Exam This is a pleasant 68-year-old female in no acute distress. She is alert and oriented 3. Exam of the lumbar spine reveal no obvious deformity. She continues to have pain about the upper to mid lumbar region. She has full active motion of her lower extremities in bed without difficulty or pain. Neurovascular status to the lower extremities is grossly intact. - Labs CBC & Chem 7: 02/04/19 06:27 02/04/19 06:27 Assessment and Plan (1) Compression fracture of L1 lumbar vertebra Current Visit: Yes Status: Acute Code(s): S32.010A - WEDGE COMPRESSION FRACTURE OF FIRST LUMBAR VERTEBRA, INIT SNOMED Code(s): 128646832 (2) Intractable low back pain Current Visit: Yes Status: Acute Code(s): M54.5 - LOW BACK PAIN SNOMED Code(s): 95804900452570252 (3) Lumbar back pain with radiculopathy affecting right lower extremity Current Visit: Yes Status: Acute Code(s): M54.16 - RADICULOPATHY, LUMBAR REGION SNOMED Code(s): 841990870 Plan: The clinical findings are discussed the patient. She is to wear the brace whenever she is upright greater than 45. She is to follow-up with Dr. Oro in 2-3 weeks for re-x-ray and evaluation.
--- NOTE | 2019-02-05 12:45 | P.PN ---
Subjective Progress Note Date: 02/05/19 Principal diagnosis: Radiculopathy Patient was seen and examined. No acute events overnight. Patient reports slight improvement in her back pain, 4-5 out of 10 in severity currently. She is able to ambulate from her bedside to her chair this morning with the assist of PT and OT. Her back brace was delivered today. Underwent epidural injection yesterday. Objective - Vital Signs Vital signs: Vital Signs Temp 98.0 F 02/05/19 07:45 Pulse 68 02/05/19 07:45 Resp 16 02/05/19 07:45 BP 148/91 02/05/19 07:45 Pulse Ox 96 02/05/19 07:45 Intake & Output 02/04/19 02/05/19 02/05/19 18:59 06:59 18:59 Intake Total 520 100 Balance 520 100 Intake: IV 100 Oral 420 100 Other: # Voids 3 1 1 - Exam General: [non toxic], [no distress], [appears at stated age] Derm: [warm], [dry] Head: [atraumatic], [normocephalic], [symmetric] Eyes: [EOMI], [no lid lag], [anicteric sclera] Mouth: [no lip lesion], [mucus membranes moist] Cardiovascular: [S1S2 reg], [no murmur], [positive posterior tibial pulse bilate ral], Lungs: [CTA bilateral], [no rhonchi, no rales] , [no accessory muscle use] Abdominal: [soft], [ nontender to palpation], [no guarding], [no appreciable organomegaly] Ext: [no gross muscle atrophy], [no edema], [no contractures] Neuro: [no focal neuro deficits] Psych: [Alert], [oriented], [appropriate affect] - Labs CBC & Chem 7: 02/04/19 06:27 02/04/19 06:27 Assessment and Plan Assessment: Assessment and Plan 1. Lower back pain secondary to L1 compression fracture 2. Hypertension 3. Depression 4. CAD 1. CT shows DJD with old mild L1 compression fracture. Seen by pain management, underwent epidural injection 02/04/2019. Seen by orthopedic surgery, recommended Exos LSO brace. Seen by PT and OT, recommends FATUMA. Pain management with Tylenol, morphine IV as needed. Continue gabapentin. Fall precautions. 2. BP 148/91. Continue Imdur 30 mg by mouth daily, metoprolol 25 mg by mouth daily. Monitor vitals, adjust medications as necessary. 3. Continue Lexapro. 4. Continue aspirin 81 mg by mouth daily. Discussed with patient, with whole home PT eventually. She reports difficulty ambulating from her bed to the washroom. Helped by PT to sit up in a recliner with the assistance of rolling walker and back brace. Likely DC 1-2 days pending clinical improvement.
[2019-02-06] MEDS: MORPHINE SULFATE 4 MG/ML SYRINGE IV PRN (01:26)
[2019-02-06] MEDS: PANTOPRAZOLE 40 MG TABLET PO SCH (07:18)
[2019-02-06] MEDS: GABAPENTIN 100 MG CAP PO SCH (07:19)
[2019-02-06] MEDS: ALLOPURINOL 100 MG TAB PO SCH (07:19)
[2019-02-06] MEDS: METOPROLOL SUCCINATE (ER) 25 MG TAB.ER.24H PO SCH (07:19)
[2019-02-06] MEDS: ASPIRIN 81 MG PO SCH (07:19)
[2019-02-06] MEDS: ISOSORBIDE MONONITRATE ER 30 MG TAB.ER.24H PO SCH (07:19)
[2019-02-06] MEDS: ESCITALOPRAM 20 MG TAB PO SCH (07:19)
[2019-02-06] MEDS: HYDROcodone/APAP 7.5-325MG 1 EACH TAB PO PRN (07:23)
[2019-02-06 07:48] VITALS: BP 162/86; PULSE 67; RESP 12; TEMP 97.4
--- NOTE | 2019-02-06 10:37 | P.DS ---
Providers Date of admission: 02/03/19 21:42 Expected date of discharge: 02/06/19 Attending physician: Fernando Soriano MD Consults: 02/03/19 22:07 Consult Physician Stat Consulting Provider: Brando Oro Consult Reason/Comments: L1 compression fracture, unable to ambulate Do you want consulting provider notified?: Yes 02/04/19 09:24 Consult to Anesthesia Routine Consulting Provider: Anesthesia,Services Consult Reason/Comments: Low back pain, Chronic L1 fracture, RLE radiculopathy and lumbar stenosis Primary care physician: Stated None Hospital Course: 68-year-old female with history of congestive heart failure, CAD status post CABG. And chronic low back pain. Patient presented to the hospital with gradual worsening of her low back pain. She claims that she had 8-10 falls over the past year she thinks is due to her narcolepsy as she falls asleep sometimes when she doesn't take her medications. Her last fall was 2 months ago. She denies sustaining any injuries during the last fall. However since then she continued to have right thigh pain radiating to the right foot and across to her back. She rated the pain as 10 out of 10 in severity. Symptoms improves with Aleve. She denies any associated numbness or tingling in her feet. She uses a walker to ambulate at home for recently she's been having increased difficulties and walking to the bathroom due to severe pain. Computed tomography scan of the lumbar spine done in the ED showed old mild compression fracture of L1. Patient admitted for pain control and evaluation by orthopedics. Patient was evaluated by orthopedic surgery and recommended no surgical intervention from their standpoint. They recommended Exos LSO brace which was delivered to the patient at bedside. Patient was seen by pain management and underwent an epidural injection on 02/04/2019. Physical therapy and occupational therapy evaluated the patient, recommended subacute rehab. Patient refused any sort of placement and was agreeable to go home with home PT. Patient was seen and examined prior to discharge. No acute events overnight. Patient reports improvement in her back pain, 0-10 currently. She was able to be helped out of bed into recliner this morning. Patient reports being back to baseline. She continues to refuse subacute rehab, collecting to go home with home PT. She denies chest pain, shortness of breath or palpitations. She denies any bladder or bowel incontinence, saddle anesthesia. General: [non toxic], [no distress], [appears at stated age] Derm: [warm], [dry] Head: [atraumatic], [normocephalic], [symmetric] Eyes: [EOMI], [no lid lag], [anicteric sclera] Mouth: [no lip lesion], [mucus membranes moist] Cardiovascular: [S1S2 reg], [no murmur], [positive posterior tibial pulse bi lateral], Lungs: [CTA bilateral], [no rhonchi, no rales] , [no accessory muscle use] Abdominal: [soft], [ nontender to palpation], [no guarding], [no appreciable organomegaly] Ext: [no gross muscle atrophy], [no edema], [no contractures] Neuro: [no focal neuro deficits] Psych: [Alert], [oriented], [appropriate affect] Assessment and Plan 1. Lower back pain secondary to L1 compression fracture 2. Hypertension 3. Depression 4. CAD 1. CT shows DJD with old mild L1 compression fracture. Seen by pain management, underwent epidural injection 02/04/2019. Seen by orthopedic surgery, recommended Exos LSO brace. Seen by PT and OT, recommends FATUMA. Pain management with Tylenol, morphine IV as needed. Continue gabapentin. Fall precautions. 2. BP 162/86. Continue Imdur 30 mg by mouth daily, metoprolol 25 mg by mouth daily. Monitor vitals, adjust medications as necessary. 3. Continue Lexapro. 4. Continue aspirin 81 mg by mouth daily. Discussed with patient, home with home PT. Patient is back to baseline, refusing subacute rehab. She would like to go home with home PT. Will discharge today with close follow-up with PCP and orthopedic surgery. Advised to wear brace until orthopedic follow-up. Patient verbalized understanding. Pertinent Studies: Lumbar spine x-ray, lumbar spine CT Patient Condition at Discharge: Fair Plan - Discharge Summary Discharge Rx Participant: No New Discharge Prescriptions: Continue Hydrocodone/Acetaminophen [[place] 7.5-325] 1 tab PO Q6HR PRN PRN Reason: Pain traMADol HCl [Ultram] 50 mg PO BID PRN PRN Reason: Pain Modafinil [Provigil] 100 mg PO DAILY PRN PRN Reason: REDUCE SLEEPINESS Escitalopram [Lexapro] 20 mg PO DAILY Carbidopa/Levodopa [Sinemet 25-250 mg] 3 - 4 tab PO DAILY PRN PRN Reason: [place] Allopurinol [Zyloprim] 100 mg PO DAILY Omeprazole [PriLOSEC] 20 mg PO AC-BID Metoprolol Succinate [Toprol XL] 25 mg PO DAILY Meclizine [Antivert] 25 - 50 mg PO BID Isosorbide Mononitrate ER [Imdur] 30 mg PO DAILY Gabapentin [Neurontin] 100 mg PO TID Aspirin [Vicco Aspirin EC] 81 mg PO DAILY rOPINIRole HCL [Requip] 2 mg PO DAILY Discharge Medication List Allopurinol [Zyloprim] 100 mg PO DAILY 02/03/19 [History] Aspirin [Vicco Aspirin EC] 81 mg PO DAILY 02/03/19 [History] Carbidopa/Levodopa [Sinemet 25-250 mg] 3 - 4 tab PO DAILY PRN 02/03/19 [History] Escitalopram [Lexapro] 20 mg PO DAILY 02/03/19 [History] Gabapentin [Neurontin] 100 mg PO TID 02/03/19 [History] Hydrocodone/Acetaminophen [[place] 7.5-325] 1 tab PO Q6HR PRN 02/03/19 [History] Isosorbide Mononitrate ER [Imdur] 30 mg PO DAILY 02/03/19 [History] Meclizine [Antivert] 25 - 50 mg PO BID 02/03/19 [History] Metoprolol Succinate [Toprol XL] 25 mg PO DAILY 02/03/19 [History] Modafinil [Provigil] 100 mg PO DAILY PRN 02/03/19 [History] Omeprazole [PriLOSEC] 20 mg PO AC-BID 02/03/19 [History] rOPINIRole HCL [Requip] 2 mg PO DAILY 02/03/19 [History] traMADol HCl [Ultram] 50 mg PO BID PRN 02/03/19 [History] Follow up Appointment(s)/Referral(s): Nonstaff,Physician [REFERRING] - 1-2 days [facility] Nurse, [NON-STAFF] - Betty Gates [NON-STAFF] - Brayden Myrick, PAC [PHYSICIAN TRUCK SUPERVISOR] - 1 Week (Patient may follow-up with Brayden Myrick PA-C or Dr. Panchito Oro at [facility] in 2-3 weeks following discharge or may follow-up on an as needed basis if she plans to follow with the spine surgeon as scheduled at [facility]. ) Activity/Diet/Wound Care/Special Instructions: 1. Patient may wear LSO brace for comfort and support as needed 2. LSO Brace will be delivered to bedside before discharge by [facility]. FU with PCP within 1-2 days of discharge. FU with Orthopedic Surgery within 1 week of discharge. Discharge Disposition: HOME SELF-CARE
== END 2019-02-06 14:46 | disposition home health service (06) ==
LOC: EC 17:10 → 4SSUR 21:42
PROVIDERS: ADMIT Internal Medicine; ATTEND Internal Medicine
DX: M51.16 Intervertebral disc disorders with radiculopathy, lumbar region (principal); M48.061 Spinal stenosis, lumbar region without neurogenic claudication; M47.26 Other spondylosis with radiculopathy, lumbar region; M46.96 Unspecified inflammatory spondylopathy, lumbar region; M48.56XA Collapsed vertebra, not elsewhere classified, lumbar region, initial encounter for fracture; E66.01 Morbid (severe) obesity due to excess calories; Z68.43 Body mass index [BMI] 50.0-59.9, adult; E87.5 Hyperkalemia; F32.9 Major depressive disorder, single episode, unspecified; F41.9 Anxiety disorder, unspecified; G25.81 Restless legs syndrome; I25.10 Atherosclerotic heart disease of native coronary artery without angina pectoris; G47.419 Narcolepsy without cataplexy; I11.0 Hypertensive heart disease with heart failure; I25.2 Old myocardial infarction; I50.9 Heart failure, unspecified; M43.17 Spondylolisthesis, lumbosacral region; Z95.1 Presence of aortocoronary bypass graft; Z79.82 Long term (current) use of aspirin; Z79.899 Other long term (current) drug therapy; Z82.49 Family history of ischemic heart disease and other diseases of the circulatory system; Z90.5 Acquired absence of kidney; Z91.81 History of falling
CPT/HCPCS: 96376 ×3; 96372; 96374; 96375; 99285; 36415; 97530 ×2; 97162; 97167; 62323; 20552; 80053; 80048; 85025 ×2; 72100; 72131; G0378 ×4; J2270 ×4; J1040; J1885

== ENCOUNTER 2019-03-07 08:46 | Day surgery (SDC) | payer MEDICARE, OTHER ==
[2019-03-01 14:46] VITALS: BMI 55.8
[~2019-03-07 08:46] MED LIST: LACTATED RINGERS 1,000 ML IV SCH
[2019-03-07 09:13] VITALS: TEMP 98.2
[2019-03-07] MEDS ORDERED: LIDOCAINE 1% 20 ML VIAL (10MG/ML) FOR IV START INTRADERMA ONE (09:14)
--- NOTE | 2019-03-07 10:22 | P.PCN ---
Date of Procedure: 03/07/19 Procedure(s) Performed: PREOPERATIVE DIAGNOSIS: 1- Lumbar Degenerative Disc Diseases 2-Lumbar spondylosis . 3-compression fracture lumbar spine. 4-myofascial pain syndrome lumbar area. POSTOPERATIVE DIAGNOSIS: Same as preoperative diagnosis. PROCEDURE 1. Lumbar epidural steroid injection under fluoroscopic guidance at the L4-5 level. 2. Trigger point injections lumbar paravertebral muscles , 1 on the right side and 1 on the left side ANESTHESIA: Local with 1% lidocaine 3 ml . EBL: Minimal PROCEDURE INDICATION: The patient with low back pain and radiculitis symptoms unresponsive to conservative treatment. Procedure risk and benefits discussed with the patient she agreed with the procedure PROCEDURE DESCRIPTION / TECHNIQUE: The patient was seen and identified in the preoperative area. Risks, benefits, complications including but not limited to infections ,bleeding ,allergic reaction to the medications ,nerve damage and not complete pain releife , and alternatives were discussed with the patient. The patient agreed to proceed with the procedure and signed the consent. IV was started, and vital signs were stable. Patient and the procedure area, and time out was completed. The patient was placed in the sitting positions. The lumbosacral area was prepped and draped in the usual sterile fashion.ere closely monitored during the procedure.. Vital signs was monitered during the entire procedure. the L4-5 interlaminar space was identified and the skin over this site was marked and then infiltrated with 1% lidocaine subcutaneously. Subsequently, a 20-gauge Tuohy epidural needle was inserted and advanced toward the epidural space using the ``Loss of resistance technique , after negative aspiration for blood and CSF and in the absence of paresthesias. Again after negative aspiration, a 6 ml mixture containing 80 mg of Depo-medrol , and 2 ml of preservative free Normal Saline, and 2 ml of preservative free lidocaine 1% solution was injected , Needle was withdrawn intact, then trigger point injected with bupivacaine 0.5% , one trigger point injected on the right side lumbar paravertebral muscle ,and one trigger point injected on the left side lumbar paravertebral muscles I injected 6 mL at each trigger point after negative aspiration using 25-gauge needle , and there was no paresthesia during the injection Patient tolerated the procedure well without any complications. COMPLICATIONS: None DISPOSITION / PLANS: The patient was placed in a supine positions . The patient will schedule a follow up in the clinic in 2-4 weeks. note: I did not do the procedure at the L5-S1 epidural space, because patient had sacral stimulator to treat the incontinence ,the wires of the stimulator was located on top of L5-S1 epidural space, and there was concern of damaging the generator leads, for this reason, I performed a procedure at the L4 5 levels.
[2019-03-07] MEDS ORDERED: IV FLUID CONTINUATION 750 ML IV ONE (10:29)
[2019-03-07 10:32] VITALS: PULSE 63; RESP 20
[2019-03-07 10:58] VITALS: BP 135/85
--- NOTE | 2019-03-07 11:14 | FL ---
Fluoroscopy HISTORY: Pain 23 seconds fluoroscopy time supplied to the referring clinician. 1 intraoperative C-arm images docum ent the procedure. See dictated report from anesthesia.
== END 2019-03-07 11:16 | disposition home or self-care (01) ==
LOC: ORPAIN 08:46
PROVIDERS: ATTEND Specialist
DX: M79.18 Myalgia, other site (principal); M47.26 Other spondylosis with radiculopathy, lumbar region; M51.16 Intervertebral disc disorders with radiculopathy, lumbar region; M48.56XA Collapsed vertebra, not elsewhere classified, lumbar region, initial encounter for fracture; Z79.891 Long term (current) use of opiate analgesic; Z79.899 Other long term (current) drug therapy
CPT/HCPCS: 20552; 62323; J1030; Q9966; 20553; 99152

== ENCOUNTER 2019-03-11 00:25 | Inpatient (IN) | payer MEDICARE, OTHER ==
[2019-03-11] MEDS ORDERED: SODIUM CHLORIDE 0.9% 500 ML 500 ML IV STA (01:22)
[2019-03-11] MEDS ORDERED: HYDROcodone/APAP 5-325MG 1 EACH TAB PO STA (01:23)
[2019-03-11 01:38] LABS: Anisocytosis Slight; Basophils % (A) 0 %; Eosinophils # (A) 0.1 k/uL (0-0.7); Eosinophils % (A) 1 %; HCT 37.7 % (34.0-46.0); HGB 12.1 gm/dL (11.4-16.0); Lymphocytes # (A) 0.8 k/uL (1.0-4.8); Lymphocytes % (A) 7 %; MCHC 32.1 g/dL (31.0-37.0); MCV 105.8 fL (80.0-100.0); Macrocytosis Moderate; Mean Platelet Volume 8.8; Monocytes # (A) 0.4 k/uL (0-1.0); Monocytes % (A) 4 %; Neutrophils # (A) 9.2 k/uL (1.3-7.7); Neutrophils % (A) 86 %; RBC 3.56 m/uL (3.80-5.40); RDW 17.1 % (11.5-15.5); WBC 10.6 k/uL (3.8-10.6)
[2019-03-11 01:41] LABS: Appearance,Urine Clear (Clear); Bacteria,Urine Rare /hpf; Bilirubin,Urine Negative (Negative); Blood,Urine Trace (Negative); Color,Urine Yellow; Glucose,Urine (UA) Negative (Negative); Ketones,Urine Negative (Negative); Leukocyte Esterase,Urine Negative (Negative); Mucus,Urine Rare /hpf; Nitrite,Urine Negative (Negative); PH, Urine 5.5 (5.0-8.0); Protein,Urine Negative (Negative); RBC,Urine 1 /hpf (0-5); Specific Gravity,Urine 1.021 (1.001-1.035); Squamous Epithelial Cell,Urine 1 /hpf (0-4); Urobilinogen,Urine <2.0 mg/dL (<2.0); WBC,Urine 2 /hpf (0-5)
[2019-03-11 01:49] LABS: Partial Thromboplastin Time 22.2 sec (22.0-30.0); Prothrombin Time 10.3 sec (9.0-12.0)
[2019-03-11 01:53] LABS: Albumin 3.1 g/dL (3.5-5.0); Calcium 8.9 mg/dL (8.4-10.2); Potassium 4.1 mmol/L (3.5-5.1); Total Bilirubin 0.7 mg/dL (0.2-1.3); Total Protein 6.3 g/dL (6.3-8.2)
[2019-03-11 01:54] LABS: Platelet Count 83 k/uL (150-450)
[2019-03-11 01:55] LABS: Polychromasia Present
--- NOTE | 2019-03-11 02:00 | XR ---
EXAM: XR Chest, 1 View CLINICAL HISTORY: ITS.REASON XR Reason: Weakness TECHNIQUE: Frontal view of the chest. COMPARISON: No relevant prior studies available. FINDINGS: Patient is rotated. There is accentuation the cardiac and the sternal silhouette by technique. Cardiac silhouette likely borderline in size allowing for technique. Pacer. Possible vascular congestion. No consolidation. IMPRESSION: Possible vascular congestion.
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
[2019-03-11] MEDS ORDERED: NALOXONE 0.4 MG/ML 1 ML VIAL IV PRN (04:25)
[2019-03-11] MEDS: HYDROcodone/APAP 5-325MG 1 EACH TAB PO PRN ×2 (08:56→20:52)
[2019-03-11] MEDS ORDERED: CARBIDOPA-LEVODOPA 25-250 MG 1 EACH TAB PO PRN (15:56)
[2019-03-11] MEDS ORDERED: MECLIZINE 25 MG TAB PO PRN (15:57)
[2019-03-11] MEDS ORDERED: NITROGLYCERIN SL TABS 0.4 MG TAB SUBLINGUAL PRN (15:57)
[2019-03-11] MEDS ORDERED: NYSTATIN 100,000 UNIT/GM POWD 15 GM TOPICAL PRN (15:57)
[2019-03-11] MEDS ORDERED: MODAFINIL 100 MG TAB PO PRN (15:57)
[2019-03-11] MEDS: GABAPENTIN 100 MG CAP PO SCH ×2 (17:40→20:53)
[2019-03-11] MEDS: rOPINIRole HCL 4 MG TABLET PO SCH ×2 (17:41→20:53)
--- NOTE | 2019-03-11 18:47 | CT ---
EXAMINATION TYPE: CT thor lumbar spine w con DATE OF EXAM: 03/11/2019 COMPARISON: None HISTORY: Pt rec's pain injections. Since last injection, has been having pain and mobility issues CT DLP: 2194 mGycm Automated exposure control for dose reduction was used. CONTRAST: Performed with IV Contrast, patient injected with 100 mL of Isovue 300. FINDINGS: Multiple axial sections were obtained from the skull base to the chest for level with no contrast. There is mild thoracic dextroscoliosis. There is hypertrophic degenerative disc change in the thoraci c and lumbar spine. There is no compression fracture. There is some osteosclerosis in spondylotic rebeca nges at C7-T1. There is 15% wedging of L1 vertebra that appears old. I see no acute compression fracture. The sampling expert ior elements appear intact. There is no thoracic paraspinal mass. There is bilateral basilar pulmonar y infiltrate and atelectasis. There is mild pleural thickening. Heart is enlarged. There is some flui d around the right lobe of the liver. There is multilevel thoracic and lumbar disc space narrowing wi th spur formation. IMPRESSION: MULTILEVEL SPONDYLOTIC CHANGES. OLD L1 COMPRESSION FRACTURE UNCHANGED COMPARED TO OLD LUMBAR SPINE CT SCAN 02/03/2019. NO ACUTE FRACTURE. MILD THORACIC DEXTROSCOLIOSIS. THERE IS MILD ABDOMINAL ASCITES COMPARED TO OLD EXAM..
--- NOTE | 2019-03-11 19:26 | HP ---
HISTORY AND PHYSICAL CHIEF COMPLAINT: Acute low back pain. HISTORY OF PRESENT ILLNESS: This is the first known admission for this 5-year-old white female. Apparently she was in the hospital some time ago with back injury and was transferred for management of her LS spine pain and arthritis. At that time, she apparently was unable to walk and this was in September 2018. She comes in the emergency room. The pain is actually getting worse. She is not a reliable historian. She stated that she had been in another hospital about a month ago was told she had a fracture of L1 and she has been receiving epidural injections for this by painter sign maintenance. She states she is totally unable to bear weight now. She also describes a saddle anesthesia and tingling in the lower extremities. She has had no fever, chills, urinary symptoms, etc. REVIEW OF SYSTEMS: She denies any focal neurologic deficits. Otherwise, headache, chest pain, shortness of breath, cough, hemoptysis, heart disease, murmurs, rheumatic fever, orthopnea, PND, angina, infarctions, syncope, abdominal pain, nausea, vomiting, hematemesis, melena, hematochezia, stool incontinence, renal failure, urinary incontinence, dysuria, hematuria, diabetes, etc. Past medical history, family history personal and social histories cannot be reliably obtained. She apparently is on allopurinol, aspirin, Sinemet 25-250, Lexapro, Neurontin, Vicodin 7.5, Isordil, Antivert, Toprol-XL, Pro visual, iron, Nitrostat, nystatin powder, omeprazole, and Requip. SHE IS ALLERGIC TO FISH AND ADHESIVE TAPE. PHYSICAL EXAM: Blood pressure 145/71, a pulse of 68, respirations of 20 and she is afebrile. In general she appeared to be overweight and extremely uncomfortable. She seemed to be unable to move at all. Head, ears, eyes, nose, mouth, and throat were normal. Chest is clear. Cardiac exam is normal and the abdomen is protuberant soft and no masses. Extremities: Normal. She was difficult to evaluate neurologically, but she had no lateralizing sensory motor deficits. Her back cannot be examined. She was admitted to the hospital with a diagnosis of: IMPRESSION: Chronic low back pain following a fall 3-4 months ago with worsening pain. PLAN: 1. Bed rest. 2. IV fluids. 3. CT of the dorsal and LS spine. 4. Possible MRI. JUAN / MINAN: [id number] /
[2019-03-11] MEDS: ESCITALOPRAM 20 MG TAB PO SCH (20:53)
[2019-03-11] MEDS ORDERED: busPIRone HCl 5 MG TAB PO PRN (23:49)
[2019-03-11] MEDS: HYDROmorphone 0.5 MG/0.5 ML SYRINGE IVP PRN (23:54)
[2019-03-12 00:36] LABS: Glucose,Whole Blood 116 mg/dL (75-99)
[2019-03-12] MEDS ORDERED: HALOPERIDOL LACTATE 5 MG/ML 1 ML VIAL IM STA (01:06)
[2019-03-12] MEDS: HYDROmorphone 1 MG/ML 1 ML SYRINGE IVP PRN ×4 (02:09→23:28)
[2019-03-12 02:55] LABS: ABG Base Excess 2.3 mmol/L; ABG HCO3 29 mmol/L (21-25); ABG Oxygen Saturation 74.6 % (94-97); ABG PCO2 58 mmHg (35-45); ABG TCO2 30 mmol/L (19-24)
[2019-03-12] MEDS ORDERED: ALBUTEROL NEBULIZED 2.5 MG/3 ML INHALATION STA (03:03)
[2019-03-12 03:25] LABS: ABG PO2 44 mmHg (83-108)
[2019-03-12 03:48] LABS: Lactic Acid, Venous 1.2 mmol/L (0.7-2.0)
[2019-03-12] MEDS ORDERED: FUROSEMIDE 10 MG/ML 4 ML VIAL IV STA (03:51)
[2019-03-12 04:01] LABS: Creatine Kinase MB 1.5 ng/mL (0.0-2.4); Troponin I <0.012 ng/mL (0.000-0.034)
--- NOTE | 2019-03-12 04:09 | XR ---
EXAM: XR Chest, 1 View CLINICAL HISTORY: ITS.REASON XR Reason: SOB TECHNIQUE: Frontal view of the chest. COMPARISON: Chest radiograph 03/11/2019. FINDINGS: Lungs: Hypoinflated lungs. Patchy perihilar and bibasilar opacities are seen. Pleural space: Unremarkable. No pneumothorax. Heart: Cardiomegaly. Mediastinum: Unremarkable. Bones/joints: Degenerative changes seen in the spine. Tubes, lines and devices: Cardiac pacing device. IMPRESSION: 1. Hypoinflated lungs. 2. Possible congestive heart failure with pulmonary edema.
[2019-03-12 05:38] LABS: Calcium 8.2 mg/dL (8.4-10.2); Phosphorus 3.8 mg/dL (2.5-4.5); Potassium 4.2 mmol/L (3.5-5.1)
[2019-03-12] MEDS ORDERED: methylPREDNISolone SOD SUCCI 125 MG/2 ML VIAL IV SCH (06:00)
[2019-03-12 06:48] LABS: Anisocytosis Slight; Basophils % (A) 0 %; Eosinophils # (A) 0.1 k/uL (0-0.7); Eosinophils % (A) 2 %; HCT 36.1 % (34.0-46.0); Hypochromasia Marked; Lymphocytes # (A) 0.5 k/uL (1.0-4.8); Lymphocytes % (A) 9 %; MCH 33.1 pg (25.0-35.0); MCHC 30.4 g/dL (31.0-37.0); MCV 108.7 fL (80.0-100.0); Macrocytosis Marked; Mean Platelet Volume 8.4; Monocytes # (A) 0.3 k/uL (0-1.0); Monocytes % (A) 5 %; Neutrophils # (A) 4.7 k/uL (1.3-7.7); Neutrophils % (A) 82 %; RBC 3.32 m/uL (3.80-5.40); RDW 16.5 % (11.5-15.5); WBC 5.7 k/uL (3.8-10.6)
[2019-03-12 06:50] LABS: Platelet Count 64 k/uL (150-450)
[2019-03-12] MEDS: MAGNESIUM SULFATE-D5W PMX 1 GM in DEXTROSE/WATER 1 100ML.BAG IVPB SCH ×2 (06:56→08:42)
[2019-03-12] MEDS: FERROUS SULFATE 325 MG TAB PO SCH (08:43)
[2019-03-12] MEDS: PANTOPRAZOLE 40 MG TABLET PO SCH (08:44)
[2019-03-12] MEDS: HEPARIN SODIUM,PORCINE 5,000 UNIT/ML 1 ML VIAL SQ SCH ×2 (08:44→15:40)
[2019-03-12] MEDS: ASPIRIN 81 MG PO SCH (08:44)
[2019-03-12] MEDS: rOPINIRole HCL 4 MG TABLET PO SCH ×4 (08:44→21:22)
[2019-03-12] MEDS: GABAPENTIN 100 MG CAP PO SCH ×3 (08:44→21:22)
[2019-03-12] MEDS: ALLOPURINOL 100 MG TAB PO SCH (08:44)
[2019-03-12] MEDS: METOPROLOL SUCCINATE (ER) 25 MG TAB.ER.24H PO SCH (08:47)
[2019-03-12] MEDS: ISOSORBIDE MONONITRATE ER 30 MG TAB.ER.24H PO SCH (08:47)
[2019-03-12 12:17] LABS: ABG HCO3 32 mmol/L (21-25); ABG Oxygen Saturation 98.7 % (94-97); ABG PCO2 43 mmHg (35-45); ABG PH 7.48 (7.35-7.45); ABG PO2 118 mmHg (83-108); ABG TCO2 33 mmol/L (19-24)
--- NOTE | 2019-03-12 14:14 | P.CNPUL ---
History of Present Illness Consult date: 03/12/19 Reason for consult: dyspnea History of present illness: This is a 68-year-old female patient who got transferred to the intensive care unit because of altered mental status, worsening shortness of breath and hypoxemia. The patient was initially admitted to the hospital on 03/11/2019 because of ongoing back pain. This is a chronic problem has been going on for more than a month and the patient has been having difficulty with mobility and gait and the patient was diagnosed having compression fracture of the L1. The patient was receiving epidural injection on outpatient basis. The patient came into the hospital because of worsening weakness and stiffness and she was unable to ambulate or bear any weight. She did not have any paralysis in lower extremities. No loss in the bowel or bladder functions. The CAT scan of the lumbosacral spine showed findings consistent with L1 compression fracture and there were no new findings. Meanwhile, the patient became altered and more short of breath and hypoxic overnight and the patient got transferred to the ICU. The blood gases prior to transfer showed hypoxemia and the chest x-ray s howed cardiomegaly with a component of pulmonary vessel congestion. The patient was given IV Lasix pH she is adequately. She is currently on 40 to oxygen nasal cannula. She is less short of breath. She is able to speak of sentences. She seems to be more coherent compared to yesterday. She denies having any chest pain. No pleurisy. No hemoptysis. No focal neurological deficits that this point in time. She is obese with a BMI 55.1. Repeat blood gases from today showed a pH of 7.48 with a pCO2 of 43 and pO2 of 118 and this was done and FiO2 of 40%. There has been significant improvement in patient's oxygenation and acid base status compared to yesterday. This patient is known to have COPD, obstructive sleep apnea and she quit using her CPAP machine after the machine broke. She also gives history of narcolepsy. She gives history of kidney cancer and she has undergone a previous nephrectomy. She has undergone insertion of a bladder stimulator for chronic urinary bladder retention. She has history of chronic back pain, frequent falls, osteoporosis and coronary artery disease and she has undergone previous coronary artery bypass surgery. There is also history of atrial fibrillation. The patient's current rhythm is sinus. She has a permanent pacemaker in place. Review of Systems Constitutional: Reports daytime sleepiness, Reports fatigue, Reports lethargy, Reports weight gain Eyes: denies as per HPI, denies blurred vision, denies bulging eye Ears: deny: decreased hearing, ear discharge, earache, tinnitus Ears, nose, mouth and throat: Reports as per HPI Breasts: absent: as per HPI, change in shape, gynecomastia, masses, nipple discharge, pain, skin changes, swelling Cardiovascular: Reports dyspnea on exertion, Reports edema, Reports irregular heart beat, Reports shortness of breath Respiratory: Reports dyspnea, Reports snoring Gastrointestinal: Denies abdominal pain, Denies diarrhea, Denies nausea, Denies vomiting Genitourinary: Reports as per HPI, Reports difficulty voiding, Reports mixed incontinence Menstruation: Reports as per HPI Musculoskeletal: Reports as per HPI, Reports frequent falls, Reports low back pain Musculoskeletal: bilateral: ankle swelling, absent: ankle pain, ankle stiffness Integumentary: Denies pruritus, Denies rash Neurological: Reports balance difficulties, Reports gait dysfunction, Reports weakness Psychiatric: Denies anxiety, Denies depression Endocrine: Reports as per HPI Hematologic/Lymphatic: Reports as per HPI Allergic/Immunologic: Reports as per HPI Past Medical History Past Medical History: Cancer, Chest Pain / Angina, Heart Failure, COPD, Fibromyalgia, GERD/Reflux, Myocardial Infarction (IA), Osteoarthritis (OA), Pneumonia, Sleep Apnea/CPAP/BIPAP Additional Past Medical History / Comment(s): Coronary artery disease with previous coronary artery bypass surgery, history of atrial fibrillation, obstructive sleep apnea receiving and a CPAP therapy, L1 compression fracture with ongoing back pain, fibromyalgia, acid reflux, osteoarthritis, migraines, restless leg syndrome, chronic hypoxic respiratory failure mid in oxygen 2 L per minute nasal cannula, COPD, IBS, frequent falls, osteoporosis, narcolepsy, history of kidney cancer with a previous nephrectomy back in 1971, history of pacemaker insertion, history of bladder stimulator insertion for chronic urinary retention/incontinence, Last Myocardial Infarction Date:: 2004 History of Any Multi-Drug Resistant Organisms: None Reported Past Surgical History: Appendectomy, Coronary Bypass/CABG, Heart Catheterization, Orthopedic Surgery, Pacemaker Additional Past Surgical History / Comment(s): Rt nephrectomy, lumber epidural injections-last one 03/07/19, bladder stimulator, fabricio carpal tunnel releases, surgery on left hand, 1 vessel CABG 2004, fabricio cataracts with lens implants, colonoscopy. Past Anesthesia/Blood Transfusion Reactions: Previous Problems w/ Anesthesia Additional Past Anesthesia/Blood Transfusion Reaction / Comment(s): Pt has received blood in past without reaction. Type of Cardiac Device: Permanent Pacemaker Device Placement Date:: 2006 Smoking Status: Never smoker - Past Family History Mother Family Medical History: Diabetes Mellitus, Hypertension, Renal Disease Father Additional Family Medical History / Comment(s): Father comitted suicide. Family Family Medical History: Coronary Artery Disease (CAD) Medications and Allergies Home Medications Medication Instructions Recorded Confirmed Type Allopurinol [Zyloprim] 100 mg PO DAILY 02/03/19 03/11/19 History Aspirin [B[place]ington Aspirin EC] 81 mg PO DAILY 02/03/19 03/11/19 History Carbidopa/Levodopa [Sinemet 25-250 3 - 4 tab PO DAILY PRN 02/03/19 03/11/19 History mg] Escitalopram [Lexapro] 20 mg PO HS 02/03/19 03/11/19 History Gabapentin [Neurontin] 100 mg PO TID 02/03/19 03/11/19 History Hydrocodone/Acetaminophen [Murray 1 tab PO Q6HR PRN 02/03/19 03/11/19 History 7.5-325] Isosorbide Mononitrate ER [Imdur] 30 mg PO DAILY 02/03/19 03/11/19 History Meclizine [Antivert] 50 mg PO BID PRN 02/03/19 03/11/19 History Metoprolol Succinate [Toprol XL] 25 mg PO DAILY 02/03/19 03/11/19 History Modafinil [Provigil] 100 mg PO DAILY PRN 02/03/19 03/11/19 History Ferrous Sulfate [Iron] 325 mg PO DAILY 03/01/19 03/11/19 History Nitroglycerin Sl Tabs [Nitrostat] 0.4 mg SUBLINGUAL Q5M PRN 03/01/19 03/11/19 History Nystatin Powder 1 applicate TOPICAL DAILY PRN 03/01/19 03/11/19 History Omeprazole [PriLOSEC] 40 mg PO DAILY 03/01/19 03/11/19 History rOPINIRole HCL [Requip] 5 mg PO QID 03/01/19 03/11/19 History Allergies Allergy/AdvReac Type Severity Reaction Status Date / Time adhesive tape Allergy skin peels Verified 03/11/19 06:39 off Fish Containing Products Allergy Nausea Verified 03/11/19 06:39 [Fish] Physical Exam Vitals: Vital Signs Temp Pulse Pulse Resp BP BP Pulse Ox 03/12/19 13:00 61 14 154/90 96 03/12/19 12:00 98.4 F 64 15 145/85 96 03/12/19 11:00 69 16 145/94 93 L 03/12/19 10:00 61 14 142/85 97 03/12/19 09:00 98.2 F 61 16 127/69 95 03/12/19 08:00 69 16 130/65 95 03/12/19 07:00 63 14 102/59 95 03/12/19 06:15 60 9 L 111/59 98 03/12/19 05:45 60 14 98/57 92 L 03/12/19 05:15 61 18 109/76 95 03/12/19 04:45 60 16 116/64 97 03/12/19 04:15 60 20 108/58 98 03/12/19 04:00 96.7 F L 61 26 H 132/80 97 03/12/19 03:28 64 03/12/19 03:09 62 03/12/19 01:20 64 34 H 111/56 94 L 03/12/19 00:05 78 32 H 84/62 96 03/11/19 23:55 64 32 H 03/11/19 21:00 98.3 F 64 17 134/65 98 03/11/19 19:10 98.1 F 60 18 131/73 98 03/11/19 16:33 98.5 F 78 16 155/72 100 03/11/19 16:29 78 16 Intake and Output 03/11/19 03/12/19 03/12/19 22:59 06:59 14:59 Intake Total 680 Output Total 1175 2625 Balance -1175 -194 Intake: IV 200 Magnesium Sulfate-D5w Pmx 200 1 gm In Dextrose/Water 1 100ml.bag @ 100 mls/hr IVPB Q1H [facility] Rx#: [id number] Oral 480 Output: Urine 1175 2625 Other: Voiding Method Bedpan Indwelling Catheter Indwelling Catheter # Voids 2 2 Obese, comfortable restless in bed and the patient reports that she is having chronic restless leg syndrome and she has constant to move and she has the urge fall moving her legs and arms constantly. She is obese with a BMI 55.1. She is able to speak of. This is that she is less short of breath compared to yesterday. Head exam was generally normal. There was no scleral icterus or corneal arcus. Mucous membranes were moist. Neck was supple and without jugular venous distension, thyromegaly, or carotid bruits. Carotids were easily palpable bilaterally. There was no adenopathy. The patient has significant crowding of the posterior oropharynx with a Mallampati class IV. Lungs sounds are diminished bilaterally along with some few bibasilar crackles. No wheezes. Air entry is quite diminished bilaterally. Cardiac exam revealed the PMI to be normally situated and sized. The rhythm was regular and no extrasystoles were noted during several minutes of auscultation. The first and second heart sounds were normal and physiologic splitting of the second heart sound was noted. There were no murmurs, rubs, clicks, or gallops. Abdomen is obese soft nontender. No organomegaly. No direct tenderness or rebound tensile guarding. Extremities trace edema and there is no cyanosis or clubbing. Neurologic to the patient is restless in bed. She is awake and she is following commands and answering questions appropriately. Examination of the skin revealed no evidence of significant rashes, suspicious appearing nevi or other concerning lesions. Results - Laboratory Findings CBC and BMP: 03/12/19 06:00 03/12/19 03:13 ABG ABG pH 7.48 (7.35-7.45) H 03/12/19 12:14 ABG pCO2 43 mmHg (35-45) 03/12/19 12:14 ABG pO2 118 mmHg (83-108) H 03/12/19 12:14 ABG O2 Saturation 98.7 % (94-97) H 03/12/19 12:14 PT/INR, D-dimer PT 10.3 sec (9.0-12.0) 03/11/19 01:04 INR 1.0 (<1.2) 03/11/19 01:04 D-Dimer 1.78 mg/L FEU (<0.60) H 03/12/19 03:13 Abnormal lab findings: Abnormal Labs 03/11/19 03/11/19 03/11/19 01:04 01:04 01:04 RBC 3.56 L Hgb MCV 105.8 H MCHC RDW 17.1 H Plt Count 83 L Neutrophils # 9.2 H Lymphocytes # 0.8 L D-Dimer ABG pH ABG pCO2 ABG pO2 ABG HCO3 ABG Total CO2 ABG O2 Saturation Chloride 108 H BUN 41 H Glucose 154 H POC Glucose (mg/dL) Calcium AST 51 H Alkaline Phosphatase 247 H Albumin 3.1 L Urine Blood Trace H Urine Bacteria Rare H Urine Mucus Rare H 03/12/19 03/12/19 03/12/19 00:16 02:50 03:13 RBC Hgb MCV MCHC RDW Plt Count Neutrophils # Lymphocytes # D-Dimer 1.78 H ABG pH 7.30 L ABG pCO2 58 H ABG pO2 44 L* ABG HCO3 29 H ABG Total CO2 30 H ABG O2 Saturation 74.6 L Chloride BUN Glucose POC Glucose (mg/dL) 116 H Calcium AST Alkaline Phosphatase Albumin Urine Blood Urine Bacteria Urine Mucus 03/12/19 03/12/19 03/12/19 03:13 06:00 12:14 RBC 3.32 L Hgb 11.0 L MCV 108.7 H MCHC 30.4 L RDW 16.5 H Plt Count 64 L Neutrophils # Lymphocytes # 0.5 L D-Dimer ABG pH 7.48 H ABG pCO2 ABG pO2 118 H ABG HCO3 32 H ABG Total CO2 33 H ABG O2 Saturation 98.7 H Chloride 108 H BUN 32 H Glucose 142 H POC Glucose (mg/dL) Calcium 8.2 L AST Alkaline Phosphatase Albumin Urine Blood Urine Bacteria Urine Mucus - Diagnostic Findings Chest x-ray: image reviewed Assessment and Plan Plan: 1 acute on chronic hypoxic respiratory failure and secondary shortness of breath probably related to decompensated heart failure/fluid overload and the patient responded nicely to diuretics and oxidation is improved considerably compared to yesterday as noted on the follow-up blood gases. 2 acute hypercapnic respiratory failure, improved 3 COPD currently inactive in stable 4 coronary artery disease with previous coronary artery bypass surgery 5 morbid obesity with BMI 55.1 6 obstructive sleep apnea maintained on oxygen therapy only overnight and the patient has not been able to utilize CPAP therapy in the previously all machine is currently broken 7 history of pacemaker insertion 8 history approximately atrial fibrillation current rhythm is sinus 9 fibromyalgia 10 acid reflux 11 migraines 12 narcolepsy 13 history of renal cancer and the patient has undergone previous nephrectomy on the right 14 history of bladder stimulator 15 L1 compression fracture with secondary back pain and difficulty doing the with mobility and weightbearing and gait. Plan From the pulmonary standpoint the patient is feeling better. The patient has been diuresed. In fact the urine output is more than 50 mL an hour. The patient remains in negative fluid balance. Oxidation is improved. This continued IV Solu Medrol. Obtain a follow-up echocardiogram. Resume outpatient medications. The blood gas shows no evidence of any significant hypercapnic arrest 30 failure and this has recovered and the patient will be allowed to go back on Murray and Dilaudid on a when necessary basis for pain control. Resume Requip for restless leg. Provigil for narcolepsy. May benefit from CPAP therapy overnight as the patient has underlying obstructive sleep apnea. Continue to follow.
[2019-03-12] MEDS ORDERED: FUROSEMIDE 10 MG/ML 4 ML VIAL IV ONE (16:00)
--- NOTE | 2019-03-12 16:50 | PN ---
PROGRESS NOTE CHIEF COMPLAINT: Chronic, intractable and worsening back pain, etiology unknown. HISTORY OF PRESENT ILLNESS: During the night this lady became quite agitated and then had a syncopal episode. A team was called. She vomited and may have aspirated and she was moved to the intensive care unit. She is now awake and alert. She is not short of breath. She continues to complain bitterly of the back pain which is unexplained. CT studies did not demonstrate any other pathology other than her fracture. There was compression fracture at L1 and some generalized osteoarthritic and disc changes, but no other abnormality. During her event her pulse ox went down to 44. It is now up to 118. PHYSICAL EXAMINATION: Blood pressure is 144/76 with a pulse 73, respirations of 34. She is awake and alert. Slightly pale. She seems agitated and slightly confused. Head, ears, eyes, nose, mouth, and throat are normal. Chest is clear. Cardiac exam is normal and the abdomen is slightly protuberant, soft, nontender. IMPRESSION: 1. Cardiorespiratory arrest. 2. Increasing and unexplained low-back pain. 3. Old compression fracture of L1. PLAN: 1. Continue supportive care. 2. Consult with Orthopedics. 3. Consult with Oncology. MMODL / IJN: [id number] /
[2019-03-12] MEDS: ESCITALOPRAM 20 MG TAB PO SCH (21:22)
[2019-03-13] MEDS: HEPARIN SODIUM,PORCINE 5,000 UNIT/ML 1 ML VIAL SQ SCH ×4 (00:32→23:37)
[2019-03-13 05:23] LABS: Basophils % (A) 0 %; Eosinophils # (A) 0.1 k/uL (0-0.7); Eosinophils % (A) 1 %; HCT 36.1 % (34.0-46.0); HGB 11.1 gm/dL (11.4-16.0); Hypochromasia Slight; Lymphocytes # (A) 0.5 k/uL (1.0-4.8); Lymphocytes % (A) 6 %; MCHC 30.9 g/dL (31.0-37.0); Macrocytosis Moderate; Mean Platelet Volume 8.1; Monocytes # (A) 0.3 k/uL (0-1.0); Monocytes % (A) 4 %; Neutrophils # (A) 7.6 k/uL (1.3-7.7); Neutrophils % (A) 89 %; RBC 3.49 m/uL (3.80-5.40); WBC 8.6 k/uL (3.8-10.6)
[2019-03-13 05:26] LABS: MCV 103.6 fL (80.0-100.0); Platelet Count 77 k/uL (150-450)
[2019-03-13 05:29] LABS: INR 0.9 (<1.2); Partial Thromboplastin Time 24.9 sec (22.0-30.0); Prothrombin Time 10.1 sec (9.0-12.0)
[2019-03-13 05:35] LABS: Albumin 2.8 g/dL (3.5-5.0); Calcium 8.8 mg/dL (8.4-10.2); Magnesium 1.7 mg/dL (1.6-2.3); Phosphorus 3.5 mg/dL (2.5-4.5); Potassium 4.7 mmol/L (3.5-5.1); Total Bilirubin 0.6 mg/dL (0.2-1.3); Total Protein 5.8 g/dL (6.3-8.2)
--- NOTE | 2019-03-13 06:15 | XR ---
EXAMINATION TYPE: XR chest 1V DATE OF EXAM: 03/13/2019 HISTORY: CHF. REFERENCE: Previous study dated 03/12/2019. FINDINGS: There is a bipolar pacemaker place on the left. The heart is mildly enlarged. There is vascular congestion and subtle interstitial change. I could no t exclude a small left effusion. IMPRESSION: FINDINGS CONSISTENT WITH MILD HEART FAILURE.
[2019-03-13] MEDS: MAGNESIUM SULFATE-D5W PMX 1 GM in DEXTROSE/WATER 1 100ML.BAG IVPB SCH ×2 (07:55→09:03)
[2019-03-13] MEDS: HYDROmorphone 1 MG/ML 1 ML SYRINGE IVP PRN (07:55)
[2019-03-13] MEDS: ASPIRIN 81 MG PO SCH (08:06)
[2019-03-13] MEDS: GABAPENTIN 100 MG CAP PO SCH ×3 (08:06→21:37)
[2019-03-13] MEDS: METOPROLOL SUCCINATE (ER) 25 MG TAB.ER.24H PO SCH (08:06)
[2019-03-13] MEDS: rOPINIRole HCL 4 MG TABLET PO SCH ×4 (08:06→21:36)
[2019-03-13] MEDS: ISOSORBIDE MONONITRATE ER 30 MG TAB.ER.24H PO SCH (08:06)
[2019-03-13] MEDS: FERROUS SULFATE 325 MG TAB PO SCH (08:06)
[2019-03-13] MEDS: PANTOPRAZOLE 40 MG TABLET PO SCH (08:06)
[2019-03-13] MEDS: ALLOPURINOL 100 MG TAB PO SCH (08:06)
--- NOTE | 2019-03-13 10:25 | ECHOF ---
Referral Reason:SOB MEASUREMENTS -------- HEIGHT: 152.4 cm WEIGHT: 113.4 kg BP: RVIDd: 3.5 cm (< 3.3) IVSd: 0.9 cm (0.6 - 1.1) LVIDd: 5.2 cm (3.9 - 5.3) LVPWd: 0.8 cm (0.6 - 1.1) IVSs: 1.3 cm LVIDs: 4.0 cm LVPWs: 0.9 cm Ao Diam: 3.0 cm (2.0 - 3.7) AV Cusp: 2.1 cm (1.5 - 2.6) LA Diam: 4.4 cm (2.7 - 3.8) MV EXCURSION: 14.924 mm (> 18.000) MV EF SLOPE: 41 mm/s (70 - 150) EPSS: 1.0 cm MV E Magdy: 0.70 m/s MV DecT: 266 ms MV A Magdy: 1.03 m/s MV E/A Ratio: 0.68 RAP: 5.00 mmHg RVSP: 18.87 mmHg FINDINGS -------- Paced rhythm. This was a technically adequate study. LV size, wall thickness and systolic function are normal, with an EF greater than 55%. The left reza tricular size is normal. The right ventricle is normal in size. The left atrium is mildly dilated. The right atrial size is normal. There is mild aortic valve sclerosis. There is no evidence of aortic regurgitation. Mild mitral annular calcification present. Mild mitral regurgitation is present. Mild tricuspid regurgitation present. There is no evidence of pulmonary hypertension. The right v entricular systolic pressure, as measured by Doppler, is 18.87mmHg. There is no pulmonic regurgitation present. The aortic root size is normal. There is no pericardial effusion. CONCLUSIONS -------- 1. This was a technically adequate study. 2. LV size, wall thickness and systolic function are normal, with an EF greater than 55%. 3. The left ventricular size is normal. 4. The right ventricle is normal in size. 5. The left atrium is mildly dilated. 6. The right atrial size is normal. 7. There is mild aortic valve sclerosis. 8. Mild mitral annular calcification present. 9. Mild mitral regurgitation is present. 10. Mild tricuspid regurgitation present. 11. There is no evidence of pulmonary hypertension. 12. The right ventricular systolic pressure, as measured by Doppler, is 18.87mmHg. 13. There is no pulmonic regurgitation present. 14. The aortic root size is normal. 15. There is no pericardial effusion. NANOTECHNOLOGIST: Homa Hagan RDCS
--- NOTE | 2019-03-13 11:54 | P.PN ---
Subjective Progress Note Date: 03/13/19 This is a 68-year-old female patient who got transferred to the intensive care unit because of altered mental status, worsening shortness of breath and hypoxemia. The patient was initially admitted to the hospital on 03/11/2019 because of ongoing back pain. This is a chronic problem has been going on for more than a month and the patient has been having difficulty with mobility and gait and the patient was diagnosed having compression fracture of the L1. The patient was receiving epidural injection on outpatient basis. The patient came into the hospital because of worsening weakness and stiffness and she was unable to ambulate or bear any weight. She did not have any paralysis in lower extre mities. No loss in the bowel or bladder functions. The CAT scan of the lumbosacral spine showed findings consistent with L1 compression fracture and there were no new findings. Meanwhile, the patient became altered and more short of breath and hypoxic overnight and the patient got transferred to the ICU. The blood gases prior to transfer showed hypoxemia and the chest x-ray showed cardiomegaly with a component of pulmonary vessel congestion. The patient was given IV Lasix pH she is adequately. She is currently on 40 to oxygen nasal cannula. She is less short of breath. She is able to speak of sentences. She seems to be more coherent compared to yesterday. She denies having any chest pain. No pleurisy. No hemoptysis. No focal neurological deficits that this point in time. She is obese with a BMI 55.1. Repeat blood gases from today showed a pH of 7.48 with a pCO2 of 43 and pO2 of 118 and this was done and FiO2 of 40%. There has been significant improvement in patient's oxygenation and acid base status compared to yesterday. This patient is known to have COPD, obstructive sleep apnea and she quit using her CPAP machine after the machine broke. She also gives history of narcolepsy. She gives history of kidney cancer and she has undergone a previous nephrectom y. She has undergone insertion of a bladder stimulator for chronic urinary bladder retention. She has history of chronic back pain, frequent falls, osteoporosis and coronary artery disease and she has undergone previous coronary artery bypass surgery. There is also history of atrial fibrillation. The patient's current rhythm is sinus. She has a permanent pacemaker in place. On 03/13/2019 I'm seeing this patient for a follow-up. The patient is awake and alert and she is following commands and answering questions. She is resting comfortably in bed. No significant respiratory distress or any shortness of breath. No chest pain. She had diuresed more than 4 L and she remains in a negative fluid balance. Chest x-ray shows a component of mild four-vessel congestion. She is still complaining of back pain. Orthopedic surgery was consulted. The patient is taking a combination of [place] and Dilaudid for pain control. Her cardiac rhythm is sinus. She has a permanent pacemaker in place. Hemoglobin is 11. The electrolytes are all within normal limits with a creatinine of 0.7. No other issues for now. Objective - Vital Signs Vital signs: Vital Signs Temp 98.5 F 03/13/19 08:00 Pulse 76 03/13/19 10:00 Resp 26 H 03/13/19 10:00 BP 136/70 03/13/19 10:00 Pulse Ox 94 L 03/13/19 10:00 Intake & Output 03/12/19 03/13/19 03/13/19 18:59 06:59 18:59 Intake Total 1040 550 440 Output Total 3950 1750 150 Balance -2910 -1200 290 Weight 100.1 kg Intake: IV 200 Magnesium Sulfate-D5w Pmx 200 1 gm In Dextrose/Water 1 100ml.bag @ 100 mls/hr IVPB Q1H [facility] Rx#: [id number] Intake, IV Titration 200 Amount Magnesium Sulfate-D5w Pmx 200 1 gm In Dextrose/Water 1 100ml.bag @ 100 mls/hr IVPB Q1H [facility] Rx#: [id number] Oral 840 550 240 Output: Urine 3950 1750 150 Other: Voiding Method Indwelling Catheter Indwelling Catheter Indwelling Catheter - Exam Obese, comfortable restless in bed and the patient reports that she is having chronic restless leg syndrome and she has constant to move and she has the urge fall moving her legs and arms constantly. She is obese with a BMI 55.1. S the patient shows no signs of any respiratory distress Head exam was generally normal. There was no scleral icterus or corneal arcus. Mucous membranes were moist. Neck was supple and without jugular venous distension, thyromegaly, or carotid bruits. Carotids were easily palpable bilaterally. There was no adenopathy. The patient has significant crowding of the posterior oropharynx with a Mallampati class IV. Lungs sounds are diminished bilaterally along with some few bibasilar crackles. No wheezes. Air entry is improved significantly compared to yesterday Cardiac exam revealed the PMI to be normally situated and sized. The rhythm was regular and no extrasystoles were noted during several minutes of auscultation. The first and second heart sounds were normal and physiologic splitting of the second heart sound was noted. There were no murmurs, rubs, clicks, or gallops. Abdomen is obese soft nontender. No organomegaly. No direct tenderness or rebound tensile guarding. Extremities trace edema and there is no cyanosis or clubbing. Neurologic to the patient is restless in bed. She is awake and she is following commands and answering questions appropriately. Examination of the skin revealed no evidence of significant rashes, suspicious appearing nevi or other concerning lesions. - Labs CBC & Chem 7: 03/13/19 04:41 03/13/19 04:41 Labs: Abnormal Lab Results - Last 24 Hours (Table) 03/12/19 03/13/19 03/13/19 Range/Units 12:14 04:41 04:41 RBC 3.49 L (3.80-5.40) m/uL Hgb 11.1 L (11.4-16.0) gm/dL MCV 103.6 H D (80.0-100.0) fL MCHC 30.9 L (31.0-37.0) g/dL RDW 16.0 H (11.5-15.5) % Plt Count 77 L (150-450) k/uL Lymphocytes # 0.5 L (1.0-4.8) k/uL ABG pH 7.48 H (7.35-7.45) ABG pO2 118 H (83-108) mmHg ABG HCO3 32 H (21-25) mmol/L ABG Total CO2 33 H (19-24) mmol/L ABG O2 Saturation 98.7 H (94-97) % Carbon Dioxide 34 H (22-30) mmol/L BUN 33 H (7-17) mg/dL AST 50 H (14-36) U/L ALT 58 H (9-52) U/L Alkaline Phosphatase 204 H (38-126) U/L Total Protein 5.8 L (6.3-8.2) g/dL Albumin 2.8 L (3.5-5.0) g/dL Microbiology - Last 24 Hours (Table) 03/12/19 03:13 Blood Culture - Preliminary Blood No Growth after 24 hours 03/12/19 03:13 Urine Culture - Preliminary Urine,Catheterized Assessment and Plan Plan: 1 acute on chronic hypoxic respiratory failure and secondary shortness of breath probably related to decompensated heart failure/fluid overload . The patient responded well to diuretics. The patient is currently on 2 L about 2 by nasal cannula. Chest x-ray still showing a mild component of CHF. The patient is negative fluid balance in the order of 4 L. 2 acute hypercapnic respiratory failure, improved 3 COPD currently inactive in stable 4 coronary artery disease with previous coronary artery bypass surgery 5 morbid obesity with BMI 55.1 6 obstructive sleep apnea maintained on oxygen therapy only overnight and the patient has not been able to utilize CPAP therapy in the previously all machine is currently broken 7 history of pacemaker insertion 8 history approximately atrial fibrillation current rhythm is sinus 9 fibromyalgia 10 acid reflux 11 migraines 12 narcolepsy 13 history of renal cancer and the patient has undergone previous nephrectomy on the right 14 history of bladder stimulator 15 L1 compression fracture with secondary back pain and difficulty doing the with mobility and weightbearing and gait. Plan From the pulmonary standpoint the patient is feeling better. The patient has been diuresed. The fluid balance is negative by 4 L. Renal function is stable. Oxygen levels are improved and the patient is down to 2 L of oxygen nasal cannula. Consult orthopedic for pain control. Continue no code. Continue Dilaudid. Advance diet. Sit up on a chair. Transfer to medical surgical unit.
[2019-03-13 12:39] LABS: Anisocytosis Slight; Basophils % (A) 0 %; Eosinophils # (A) 0.1 k/uL (0-0.7); Eosinophils % (A) 1 %; HCT 35.5 % (34.0-46.0); HGB 11.2 gm/dL (11.4-16.0); Hypochromasia Slight; Lymphocytes # (A) 0.8 k/uL (1.0-4.8); Lymphocytes % (A) 9 %; MCH 33.1 pg (25.0-35.0); MCHC 31.7 g/dL (31.0-37.0); MCV 104.3 fL (80.0-100.0); Macrocytosis Moderate; Mean Platelet Volume 8.6; Monocytes # (A) 0.5 k/uL (0-1.0); Monocytes % (A) 5 %; Neutrophils % (A) 84 %; RDW 16.1 % (11.5-15.5); WBC 9.5 k/uL (3.8-10.6)
[2019-03-13 12:41] LABS: Platelet Count 86 k/uL (150-450)
[2019-03-13] MEDS ORDERED: ONDANSETRON 4 MG/2 ML VIAL IVP PRN (13:15)
--- NOTE | 2019-03-13 15:31 | P.CONS ---
History of Present Illness - Reason for Consult Consult date: 03/13/19 Bicytopenia Requesting physician: Brandon Dalal - Chief Complaint Lower Backl Pain/Fractures - History of Present Illness Ms. Carrera is a 68 year old female patient who presented to [facility] with persistent lower back pain. She is a poor historian, and is seen in the ICU for altered mental status changes. She was originally admitted on 03/11/19. She is status post epidural steroid injections for pain Lumbar Spine on 03/07/19. CT Scans of her Lumbar and sacral spine were completed revealing compression fracture of L1. She does admit to difficulty with ambulation since late 2018. The compression fracture was apparently not a new finding. She was transferred to ICU for hypoxic event with altered mental status changes overnight, which appear to have improved. She has a known history of COPD, KOFFI and has ordered CPAP for use at home, although is not adherent secondary to her machine is apparently not functioning. She states she had her right kidney removed for kidney cancer, did not require any follow-up oncologic care. She could not give details as to where or when this was. She has history of recurrent falls, narcolepsy, osteoporosis, coronary artery disease, with CABG, Atrial fibrillation, as well as a permanent pacemaker in place. She denies anticoagulation therapy recently, except aspirin. During evaluation of initial consultation she is holding a bucket with a small amount of emesis, stating she is nauseated. She has multiple areas of bruising on all extremities and chronic discoloring of her bilateral LE. Macrocytic Anemia has been identified, trending her hemoglobin to January of this year appears she was anemic 10-11 at that time as well. Her Platlets are also low, today 86, previously 64K. She denies any history of blood dicrasias, ever seeing a glass blower helper, or ever being told her hemoglobin or platlets are low. Review of Systems A 14 point review of systems assessed and completed and all negative except HPI Past Medical History Past Medical History: Cancer, Chest Pain / Angina, Heart Failure, COPD, Fibromyalgia, GERD/Reflux, Myocardial Infarction (SC), Osteoarthritis (OA), Pneumonia, Sleep Apnea/CPAP/BIPAP Additional Past Medical History / Comment(s): Coronary artery disease with previous coronary artery bypass surgery, history of atrial fibrillation, obstructive sleep apnea receiving and a CPAP therapy, L1 compression fracture with ongoing back pain, fibromyalgia, acid reflux, osteoarthritis, migraines, restless leg syndrome, chronic hypoxic respiratory failure mid in oxygen 2 L per minute nasal cannula, COPD, IBS, frequent falls, osteoporosis, narcolepsy, history of kidney cancer with a previous nephrectomy back in 1971, history of pacemaker insertion, history of bladder stimulator insertion for chronic urinary retention/incontinence, Last Myocardial Infarction Date:: 2004 History of Any Multi-Drug Resistant Organisms: None Reported Past Surgical History: Appendectomy, Coronary Bypass/CABG, Heart Catheterization, Orthopedic Surgery, Pacemaker Additional Past Surgical History / Comment(s): Rt nephrectomy, lumber epidural injections-last one 03/07/19, bladder stimulator, fabricio carpal tunnel releases, surgery on left hand, 1 vessel CABG 2004, fabricio cataracts with lens implants, colonoscopy. Past Anesthesia/Blood Transfusion Reactions: Previous Problems w/ Anesthesia Additional Past Anesthesia/Blood Transfusion Reaction / Comm: Pt has received blood in past without reaction. Type of Cardiac Device: Permanent Pacemaker Device Placement Date:: 2006 Smoking Status: Never smoker - Past Family History Mother Family Medical History: Diabetes Mellitus, Hypertension, Renal Disease Father Additional Family Medical History / Comment(s): Father comitted suicide. Family Family Medical History: Coronary Artery Disease (CAD) Medications and Allergies Home Medications Medication Instructions Recorded Confirmed Type Allopurinol [Zyloprim] 100 mg PO DAILY 02/03/19 03/11/19 History Aspirin [[place] Aspirin EC] 81 mg PO DAILY 02/03/19 03/11/19 History Carbidopa/Levodopa [Sinemet 25-250 3 - 4 tab PO DAILY PRN 02/03/19 03/11/19 History mg] Escitalopram [Lexapro] 20 mg PO HS 02/03/19 03/11/19 History Gabapentin [Neurontin] 100 mg PO TID 02/03/19 03/11/19 History Hydrocodone/Acetaminophen [Milner 1 tab PO Q6HR PRN 02/03/19 03/11/19 History 7.5-325] Isosorbide Mononitrate ER [Imdur] 30 mg PO DAILY 02/03/19 03/11/19 History Meclizine [Antivert] 50 mg PO BID PRN 02/03/19 03/11/19 History Metoprolol Succinate [Toprol XL] 25 mg PO DAILY 02/03/19 03/11/19 History Modafinil [Provigil] 100 mg PO DAILY PRN 02/03/19 03/11/19 History Ferrous Sulfate [Iron] 325 mg PO DAILY 03/01/19 03/11/19 History Nitroglycerin Sl Tabs [Nitrostat] 0.4 mg SUBLINGUAL Q5M PRN 03/01/19 03/11/19 History Nystatin Powder 1 applicate TOPICAL DAILY PRN 03/01/19 03/11/19 History Omeprazole [PriLOSEC] 40 mg PO DAILY 03/01/19 03/11/19 History rOPINIRole HCL [Requip] 5 mg PO QID 03/01/19 03/11/19 History Allergies Allergy/AdvReac Type Severity Reaction Status Date / Time adhesive tape Allergy skin peels Verified 03/11/19 06:39 off Fish Containing Products Allergy Nausea Verified 03/11/19 06:39 [Fish] Physical Exam Vitals: Vital Signs Temp Pulse Resp BP Pulse Ox 03/13/19 14:00 61 23 132/67 95 03/13/19 10:00 76 26 H 136/70 94 L 03/13/19 09:00 66 26 H 127/62 93 L 03/13/19 08:00 98.5 F 61 19 134/77 94 L 03/13/19 07:00 61 17 141/79 93 L 03/13/19 06:00 60 32 H 142/76 94 L 03/13/19 05:00 61 16 149/84 93 L 03/13/19 04:00 98.0 F 80 24 114/68 91 L 03/13/19 03:00 65 17 106/91 95 03/13/19 02:00 64 29 H 92/55 94 L 03/13/19 01:00 61 13 100/57 91 L 03/13/19 00:01 60 10 L 100/57 95 03/13/19 00:00 98.8 F 61 16 126/71 92 L 03/12/19 23:00 66 15 137/68 95 03/12/19 22:00 65 16 140/78 97 03/12/19 21:00 70 19 117/85 93 L 03/12/19 20:00 98.5 F 62 21 107/66 96 03/12/19 19:00 72 22 143/75 94 L 03/12/19 18:00 72 16 127/74 95 03/12/19 17:00 70 16 119/63 95 03/12/19 16:00 98 F 62 16 106/64 96 03/12/19 15:00 60 12 119/72 97 Intake and Output 03/12/19 03/13/19 03/13/19 22:59 06:59 14:59 Intake Total 490 300 680 Output Total 1950 925 350 Balance -1460 -625 330 Intake: Intake, IV Titration 200 Amount Magnesium Sulfate-D5w Pmx 200 1 gm In Dextrose/Water 1 100ml.bag @ 100 mls/hr IVPB Q1H [facility] Rx#: [id number] Oral 490 300 480 Output: Urine 1950 925 350 Other: Voiding Method Indwelling Catheter Indwelling Catheter Indwelling Catheter Weight 100.1 kg Gen: Alert and Oriented, holding a bucket as she is nauseated and has phlegm like emesis (small amount) Head: NC,NT Mouth: Dry Membranes No palpable adenopathy supraclavicular, cervical, axillary. Neck: Supple, Trachea Midline Lungs: CLear to Ausculatation Bilateral Anterior, No increased effort Abdomen: Obese, Soft, Non-tender Skin: Miltiple areas of eccymosis on bilateral arms and legs Extremities: Evidence of lower extremity chronic vascular changes and discoloration: Pulses palpable, mild bilateral pedal edema Neuro: No sensory or motor deficits Results CBC & Chem 7: 03/13/19 11:51 03/13/19 04:41 Labs: Abnormal Lab Results - Last 24 Hours (Table) 03/13/19 03/13/19 03/13/19 Range/Units 04:41 04:41 11:51 RBC 3.49 L 3.40 L (3.80-5.40) m/uL Hgb 11.1 L 11.2 L (11.4-16.0) gm/dL MCV 103.6 H D 104.3 H (80.0-100.0) fL MCHC 30.9 L (31.0-37.0) g/dL RDW 16.0 H 16.1 H (11.5-15.5) % Plt Count 77 L 86 L (150-450) k/uL Neutrophils # 8.0 H (1.3-7.7) k/uL Lymphocytes # 0.5 L 0.8 L (1.0-4.8) k/uL Carbon Dioxide 34 H (22-30) mmol/L BUN 33 H (7-17) mg/dL AST 50 H (14-36) U/L ALT 58 H (9-52) U/L Alkaline Phosphatase 204 H (38-126) U/L Lactate Dehydrogenase (313-618) U/L Total Protein 5.8 L (6.3-8.2) g/dL Albumin 2.8 L (3.5-5.0) g/dL 03/13/19 Range/Units 11:51 RBC (3.80-5.40) m/uL Hgb (11.4-16.0) gm/dL MCV (80.0-100.0) fL MCHC (31.0-37.0) g/dL RDW (11.5-15.5) % Plt Count (150-450) k/uL Neutrophils # (1.3-7.7) k/uL Lymphocytes # (1.0-4.8) k/uL Carbon Dioxide (22-30) mmol/L BUN (7-17) mg/dL AST (14-36) U/L ALT (9-52) U/L Alkaline Phosphatase (38-126) U/L Lactate Dehydrogenase 621 H (313-618) U/L Total Protein (6.3-8.2) g/dL Albumin (3.5-5.0) g/dL Microbiology - Last 24 Hours (Table) 03/12/19 03:13 Urine Culture - Final Urine,Catheterized 03/12/19 03:13 Blood Culture - Preliminary Blood No Growth after 24 hours Comments: CT Scans of Lumbar spine reviewed Assessment and Plan (1) Macrocytic anemia Current Visit: Yes Status: Acute Code(s): D53.9 - NUTRITIONAL ANEMIA, UNSPECIFIED SNOMED Code(s): 57160584 (2) Thrombocytopenia Current Visit: Yes Status: Acute Code(s): D69.6 - THROMBOCYTOPENIA, UNSPECIFIED SNOMED Code(s): 850269823 (3) Low back pain Current Visit: Yes Status: Acute Code(s): M54.5 - LOW BACK PAIN SNOMED Code(s): 352061189 (4) Compression fracture of L1 lumbar vertebra Current Visit: No Status: Acute Code(s): S32.010A - WEDGE COMPRESSION FRACTURE OF FIRST LUMBAR VERTEBRA, INIT SNOMED Code(s): 515693804 (5) Lumbar back pain with radiculopathy affecting right lower extremity Current Visit: No Status: Acute Code(s): M54.16 - RADICULOPATHY, LUMBAR REGION SNOMED Code(s): 228781392 Plan: Assessment and Recommendations: Macrocytic Anemia: - It is unknown if this is a chronic condition for this patient as her history is limited to January of 2019. MCV elevated. and in the picture of Lymphoc ytopenia, thrombocytopenia it is resonable to perform further cytopenia work-up. - Assess for Hemolysis: LDH and Haptoglobin Ordered - Assess for Nutritional Deficiencies including B12, Folate, Iron Studies - Assess for inflammatory conditions: JAZMYN and Sed Rate - Electrophoresis, Immunofixation, Free Light Chain Review - Review Peripheral Smear Thrombocytopenia: - Her platelet count appears labile and was in the range of 60-70K in January of this year. Unknown history for baseline - Will check Hepatic Function, Coags: PTT, PT, INR, Fibrinogen Lower Back Pain and Compression Fractures: - Work-up for underlying malignancy as a differential has been ordered Mild increased Liver Transiminitis: Hypoxic Respiratory Failure: Improved Plan: - Await results of above hematological work-up - Further Diagnostic Recommendations based apon above - CT Chest/abd/pelvis and Bone scan are reasonable - Await above for further recs on if Bone Marrow Biopsy is indicated. - If possible to obtain any previous medical history, lab trends or diagnostic imaging Maggi Mcgee AOP Physician Attes: I have completed the full history and physical of this patient and devloped the completed impression and plan, agree with above dictation. Dictated as a scribe.
[2019-03-13] MEDS: HYDROcodone/APAP 7.5-325MG 1 EACH TAB PO PRN (16:26)
[2019-03-13 21:02] LABS: Erythrocyte Sedimentation Rate 35 mm/hr (0-20)
--- NOTE | 2019-03-13 21:34 | PN ---
PROGRESS NOTE CHIEF COMPLAINT: Generalized weakness and chronic, severe and worsening low back pain. HISTORY OF PRESENT ILLNESS: This lady has not had any further syncopal episodes or events. She was complaining some abdominal pain, but was found to be constipated. She was disimpacted. PHYSICAL EXAM: Chest is clear. Cardiac exam is normal. Abdomen is soft and protuberant. IMPRESSION: 1. Generalized weakness. 2. Unexplained severe dorsal and LS spine pain. 3. Constipation. PLAN: Move to med/surg floor and continue looking for the etiology of her spine pain. MMODL / IJN: [id number] /
[2019-03-13] MEDS: ESCITALOPRAM 20 MG TAB PO SCH (21:36)
[2019-03-14 08:15] LABS: Calcium 8.3 mg/dL (8.4-10.2); Potassium 4.7 mmol/L (3.5-5.1)
[2019-03-14] MEDS: HEPARIN SODIUM,PORCINE 5,000 UNIT/ML 1 ML VIAL SQ SCH ×3 (08:15→23:03)
[2019-03-14] MEDS: ISOSORBIDE MONONITRATE ER 30 MG TAB.ER.24H PO SCH (08:16)
[2019-03-14] MEDS: METOPROLOL SUCCINATE (ER) 25 MG TAB.ER.24H PO SCH (08:16)
[2019-03-14] MEDS: ALLOPURINOL 100 MG TAB PO SCH (08:16)
[2019-03-14] MEDS: GABAPENTIN 100 MG CAP PO SCH ×3 (08:16→20:34)
[2019-03-14] MEDS: ASPIRIN 81 MG PO SCH (08:16)
[2019-03-14] MEDS: FERROUS SULFATE 325 MG TAB PO SCH (08:16)
[2019-03-14] MEDS: PANTOPRAZOLE 40 MG TABLET PO SCH (08:16)
[2019-03-14] MEDS: HYDROcodone/APAP 7.5-325MG 1 EACH TAB PO PRN ×2 (08:22→15:19)
[2019-03-14 08:25] LABS: Anisocytosis Slight; Basophils % (A) 0 %; Eosinophils # (A) 0.2 k/uL (0-0.7); Eosinophils % (A) 3 %; HCT 34.2 % (34.0-46.0); HGB 11.1 gm/dL (11.4-16.0); Lymphocytes # (A) 0.9 k/uL (1.0-4.8); Lymphocytes % (A) 18 %; MCH 33.2 pg (25.0-35.0); MCHC 32.3 g/dL (31.0-37.0); MCV 102.9 fL (80.0-100.0); Macrocytosis Moderate; Mean Platelet Volume 8.3; Monocytes # (A) 0.3 k/uL (0-1.0); Monocytes % (A) 6 %; Neutrophils # (A) 3.6 k/uL (1.3-7.7); Neutrophils % (A) 71 %; RBC 3.33 m/uL (3.80-5.40); RDW 16.8 % (11.5-15.5); WBC 5.1 k/uL (3.8-10.6)
[2019-03-14 08:26] LABS: Platelet Count 73 k/uL (150-450)
[2019-03-14] MEDS: rOPINIRole HCL 4 MG TABLET PO SCH ×3 (09:05→20:35)
--- NOTE | 2019-03-14 09:55 | P.CNOR ---
History of Present Illness - [facility] Consult date: 03/13/19 Requesting physician: Ghassan Lamas Consult reason: low back pain History of present illness: Patient is a pleasant 68-year-old female seen at bedside. Orthopedics was consulted for increased low back pain. She has a known L1 compression fracture which she has been seen by Dr. Oro and Joel Pierson PA-C previously. She had a hospitalization on 02/04/2019 where studies showed an L1 compression fracture along with multiple levels of spondylosis and degenerative disc disease. She's also had chronic right lower extremity radiculopathy. She has been treated conservatively including a TLSO as well as pain management. She received an epidural steroid injection at L4-5 on 03/07/2019. She felt pain management is helping. She has not desired to proceed with surgical intervention and actually had an appointment at [facility] regarding her spine but did cancel that appointment. Her pain worsened a few days ago and was admitted for further evaluation and management. She has no new complaints today. She continues to have back pain as well as right lower extremity radicular symptoms. Symptoms appear to be controlled with rest and pain medication. She has been using her TLSO when out of bed. Review of systems is negative for fever, chills, chest pain, shortness breath, nausea, vomiting, dizziness, headaches or other. Review of Systems All systems: negative Constitutional: Denies chills, Denies fever Eyes: denies blurred vision, denies pain Ears, nose, mouth and throat: Denies headache, Denies sore throat Cardiovascular: Denies chest pain, Denies shortness of breath Respiratory: Denies cough Gastrointestinal: Denies abdominal pain, Denies diarrhea, Denies nausea, Denies vomiting Genitourinary: Denies dysuria, Denies hematuria Musculoskeletal: Denies myalgias Integumentary: Denies pruritus, Denies rash Neurological: Denies numbness, Denies weakness Psychiatric: Denies anxiety, Denies depression Endocrine: Denies fatigue, Denies weight change Past Medical History Past Medical History: Cancer, Chest Pain / Angina, Heart Failure, COPD, Fibromyalgia, GERD/Reflux, Myocardial Infarction (DE), Osteoarthritis (OA), Pneumonia, Sleep Apnea/CPAP/BIPAP Additional Past Medical History / Comment(s): Coronary artery disease with previous coronary artery bypass surgery, history of atrial fibrillation, obstructive sleep apnea receiving and a CPAP therapy, L1 compression fracture with ongoing back pain, fibromyalgia, acid reflux, osteoarthritis, migraines, restless leg syndrome, chronic hypoxic respiratory failure mid in oxygen 2 L per minute nasal cannula, COPD, IBS, frequent falls, osteoporosis, narcolepsy, history of kidney cancer with a previous nephrectomy back in 1971, history of pacemaker insertion, history of bladder stimulator insertion for chronic urinary retention/incontinence, Last Myocardial Infarction Date:: 2004 History of Any Multi-Drug Resistant Organisms: None Reported Past Surgical History: Appendectomy, Coronary Bypass/CABG, Heart Catheterization, Orthopedic Surgery, Pacemaker Additional Past Surgical History / Comment(s): Rt nephrectomy, lumber epidural injections-last one 03/07/19, bladder stimulator, fabricio carpal tunnel releases, surgery on left hand, 1 vessel CABG 2004, fabricio cataracts with lens implants, colonoscopy. Past Anesthesia/Blood Transfusion Reactions: Previous Problems w/ Anesthesia Additional Past Anesthesia/Blood Transfusion Reaction / Comm: Pt has received blood in past without reaction. Type of Cardiac Device: Permanent Pacemaker Device Placement Date:: 2006 Smoking Status: Never smoker - Past Family History Mother Family Medical History: Diabetes Mellitus, Hypertension, Renal Disease Father Additional Family Medical History / Comment(s): Father comitted suicide. Family Family Medical History: Coronary Artery Disease (CAD) Medications and Allergies Home Medications Medication Instructions Recorded Confirmed Type Allopurinol [Zyloprim] 100 mg PO DAILY 02/03/19 03/11/19 History Aspirin [[place]ford Aspirin EC] 81 mg PO DAILY 02/03/19 03/11/19 History Carbidopa/Levodopa [Sinemet 25-250 3 - 4 tab PO DAILY PRN 02/03/19 03/11/19 History mg] Escitalopram [Lexapro] 20 mg PO HS 02/03/19 03/11/19 History Gabapentin [Neurontin] 100 mg PO TID 02/03/19 03/11/19 History Hydrocodone/Acetaminophen [Rule 1 tab PO Q6HR PRN 02/03/19 03/11/19 History 7.5-325] Isosorbide Mononitrate ER [Imdur] 30 mg PO DAILY 02/03/19 03/11/19 History Meclizine [Antivert] 50 mg PO BID PRN 02/03/19 03/11/19 History Metoprolol Succinate [Toprol XL] 25 mg PO DAILY 02/03/19 03/11/19 History Modafinil [Provigil] 100 mg PO DAILY PRN 02/03/19 03/11/19 History Ferrous Sulfate [Iron] 325 mg PO DAILY 03/01/19 03/11/19 History Nitroglycerin Sl Tabs [Nitrostat] 0.4 mg SUBLINGUAL Q5M PRN 03/01/19 03/11/19 History Nystatin Powder 1 applicate TOPICAL DAILY PRN 03/01/19 03/11/19 History Omeprazole [PriLOSEC] 40 mg PO DAILY 03/01/19 03/11/19 History rOPINIRole HCL [Requip] 5 mg PO QID 03/01/19 03/11/19 History Allergies Allergy/AdvReac Type Severity Reaction Status Date / Time adhesive tape Allergy skin peels Verified 03/11/19 06:39 off Fish Containing Products Allergy Nausea Verified 03/11/19 06:39 [Fish] Physical Examination General patient is in no apparent distress, AO 5, mood and affect appropriate, Thoracolumbar spine is benign to inspection with no signs of erythema or deformity. There is mild paraspinal spasming/tension. Lower extremities: L2 through S1 are grossly intact with motor and sensation. She does have weakness throughout the right lower extremity which is known. No signs of pathological reflexes. Calves are soft and nontender. She has 1+ dorsalis pedis pulse and less than 2 second capillary refill. Results - Labs Labs: Abnormal Lab Results - Last 24 Hours (Table) 03/13/19 03/13/19 03/14/19 Range/Units 11:51 11:51 07:39 RBC 3.40 L 3.33 L (3.80-5.40) m/uL Hgb 11.2 L 11.1 L (11.4-16.0) gm/dL MCV 104.3 H 102.9 H (80.0-100.0) fL RDW 16.1 H 16.8 H (11.5-15.5) % Plt Count 86 L 73 L (150-450) k/uL Neutrophils # 8.0 H (1.3-7.7) k/uL Lymphocytes # 0.8 L 0.9 L (1.0-4.8) k/uL ESR 35 H (0-20) mm/hr Carbon Dioxide (22-30) mmol/L BUN (7-17) mg/dL Calcium (8.4-10.2) mg/dL Lactate Dehydrogenase 621 H (313-618) U/L 03/14/19 Range/Units 07:39 RBC (3.80-5.40) m/uL Hgb (11.4-16.0) gm/dL MCV (80.0-100.0) fL RDW (11.5-15.5) % Plt Count (150-450) k/uL Neutrophils # (1.3-7.7) k/uL Lymphocytes # (1.0-4.8) k/uL ESR (0-20) mm/hr Carbon Dioxide 36 H (22-30) mmol/L BUN 34 H (7-17) mg/dL Calcium 8.3 L (8.4-10.2) mg/dL Lactate Dehydrogenase (313-618) U/L Microbiology - Last 24 Hours (Table) 03/12/19 03:13 Blood Culture - Preliminary Blood No Growth after 48 hours 03/12/19 03:13 Urine Culture - Final Urine,Catheterized H & H 03/11/19 03/12/19 03/13/19 Range/Units 01:04 06:00 04:41 Hgb 12.1 11.0 L 11.1 L (11.4-16.0) gm/dL Hct 37.7 36.1 36.1 (34.0-46.0) % 03/13/19 03/14/19 Range/Units 11:51 07:39 Hgb 11.2 L 11.1 L (11.4-16.0) gm/dL Hct 35.5 34.2 (34.0-46.0) % Coagulation 03/11/19 03/13/19 Range/Units 01:04 04:41 INR 1.0 0.9 (<1.2) Result Diagrams: 03/14/19 07:39 03/14/19 07:39 - Diagnostic results Lumbar AP/lateral x-ray: report reviewed, image reviewed CT Scan - lumbar: report reviewed, image reviewed Assessment and Plan (1) Low back pain Narrative/Plan: Patient has chronic lumbar problems including L1 compression fracture multiple levels of spondylosis degenerative disc disease. She's had chronic right lower extremity radiculopathy. She's been treated by pain management including epidural steroid injections. She has a TLSO brace. Recommend continue conservative care including using brace when out of bed, physical therapy and follow-up with pain management for further recommendations and treatments. She may follow-up as an outpatient with our clinic or follow up with Caleb Nagy for further possible surgical recommendations. Current Visit: Yes Status: Acute Priority: Medium Code(s): M54.5 - LOW BACK PAIN SNOMED Code(s): 258701188 (2) Weakness Current Visit: Yes Status: Acute Priority: Medium Code(s): R53.1 - WEAKNESS SNOMED Code(s): 92473980 (3) Compression fracture of L1 lumbar vertebra Current Visit: No Status: Acute Priority: Medium Code(s): S32.010A - WEDGE COMPRESSION FRACTURE OF FIRST LUMBAR VERTEBRA, INIT SNOMED Code(s): 812958989 Time with Patient: Less than 30
[2019-03-14 10:10] LABS: Folate, Serum 8.1 ng/mL
[2019-03-14 11:14] LABS: Iron Saturation 22.08 (12.00-45.00); Protein, Total 5.1 g/dL (6.2-8.2)
[2019-03-14 12:16] LABS: Albumin 2.33 g/dL (3.80-4.90)
--- NOTE | 2019-03-14 12:29 | P.PN ---
Subjective Progress Note Date: 03/14/19 Principal diagnosis: Acute on chronic hypoxic respiratory failure secondary to decompensated heart failure, fluid overload, responded well to diuretics. This is a 68-year-old female patient who got transferred to the intensive care unit because of altered mental status, worsening shortness of breath and hypoxemia. The patient was initially admitted to the hospital on 03/11/2019 because of ongoing back pain. This is a chronic problem has been going on for more than a month and the patient has been having difficulty with mobility and gait and the patient was diagnosed having compression fracture of the L1. The patient was receiving epidural injection on outpatient basis. The patient came into the hospital because of worsening weakness and stiffness and she was unable to ambulate or bear any weight. She did not have any paralysis in lower extremities. No loss in the bowel or bladder functions. The CAT scan of the lumbosacral spine showed findings consistent with L1 compression fracture and there were no new findings. Meanwhile, the patient became altered and more short of breath and hypoxic overnight and the patient got transferred to the ICU. The blood gases prior to transfer showed hypoxemia and the chest x-ray showed cardiomegaly with a component of pulmonary vessel congestion. The patient was given IV Lasix pH she is adequately. She is currently on 40 to oxygen nasal cannula. She is less short of breath. She is able to speak of sentences. She seems to be more coherent compared to yesterday. She denies having any chest pain. No pleurisy. No hemoptysis. No focal neurological deficits that this point in time. She is obese with a BMI 55.1. Repeat blood gases from today showed a pH of 7.48 with a pCO2 of 43 and pO2 of 118 and this was done and FiO2 of 40%. There has been significant improvement in patient's oxygenation and acid base status compared to yesterday. This patient is known to have COPD, obstructive sleep apnea and she quit using her CPAP machine after the machine broke. She also gives history of narcolepsy. She gives history of kidney cancer and she has undergone a previous nephrectomy. She has undergone insertion of a bladder stimulator for chronic urinary bladder retention. She has history of chronic back pain, frequent falls, osteoporosis and coronary artery disease and she has undergone previous coronary artery bypass surgery. There is also history of atrial fibrillation. The patient's current rhythm is sinus. She has a permanent pacemaker in place. On 03/13/2019 I'm seeing this patient for a follow-up. The patient is awake and alert and she is following commands and answering questions. She is resting comfortably in bed. No significant respiratory distress or any shortness of br eath. No chest pain. She had diuresed more than 4 L and she remains in a negative fluid balance. Chest x-ray shows a component of mild four-vessel congestion. She is still complaining of back pain. Orthopedic surgery was consulted. The patient is taking a combination of Blain and Dilaudid for pain control. Her cardiac rhythm is sinus. She has a permanent pacemaker in place. Hemoglobin is 11. The electrolytes are all within normal limits with a creatinine of 0.7. No other issues for now. Reevaluated today on 03/14/2019, patient seems to be resting comfortably in bed, remains on diuretics, asymptomatic, no cough no wheezing no shortness of breath no chest pain. Her last chest x-ray yesterday showed mild interstitial edema consistent with mild congestive heart failure. Patient remains on diuretics. Labs today showed relatively normal CBC WBC count is 5.1 hemoglobin is 11.1. B asic metabolic profile is relatively normal, bicarb is 36, BUN is 34 creatinine 0.79. Objective - Vital Signs Vital signs: Vital Signs Temp 98.8 F 03/14/19 05:00 Pulse 74 03/14/19 05:00 Resp 20 03/14/19 08:00 BP 138/71 03/14/19 05:00 Pulse Ox 95 03/14/19 05:00 Intake & Output 03/13/19 03/14/19 03/14/19 18:59 06:59 18:59 Intake Total 680 450 240 Output Total 425 400 150 Balance 255 50 90 Weight 102.5 kg Intake: Intake, IV Titration 200 Amount Magnesium Sulfate-D5w Pmx 200 1 gm In Dextrose/Water 1 100ml.bag @ 100 mls/hr IVPB Q1H HI Rx#: [id number] Oral 480 450 240 Output: Urine 425 150 Urine/Stool Mix 400 Other: Voiding Method Indwelling Catheter Bedpan Bedpan Diaper Diaper Incontinent Incontinent # Voids 1 4 1 # Bowel Movements 1 0 - Exam Physical Exam: Revealed a 68-year-old female pleasant in no distress. Head: Atraumatic, normocephalic. HEENT:[Neck is supple.] [No neck masses.] [No thyromegaly.] [No JVD.] Chest: [Clear throughout, minimal fine crackles at the bases, no rhonchi no wheezes. Cardiac Exam: [Normal S1 and S2, no S3 gallop, no murmur.] Abdomen: [Obese, Soft, nontender, no megaly, no rebound, no guarding, normal bowel sounds.] Extremities: [No clubbing, 1+ bipedal edema, no cyanosis.] Neurological Exam: [No focal neurologic deficit.] Psychiatric: Normal mood affect and mental status examination. Skin: No rashes. Lymphatics: No lymphadenopathy. - Labs CBC & Chem 7: 03/14/19 07:39 03/14/19 07:39 Labs: Abnormal Lab Results - Last 24 Hours (Table) 03/13/19 03/13/19 03/13/19 Range/Units 04:41 11:51 11:51 RBC 3.40 L (3.80-5.40) m/uL Hgb 11.2 L (11.4-16.0) gm/dL MCV 104.3 H (80.0-100.0) fL RDW 16.1 H (11.5-15.5) % Plt Count 86 L (150-450) k/uL Neutrophils # 8.0 H (1.3-7.7) k/uL Lymphocytes # 0.8 L (1.0-4.8) k/uL ESR 35 H (0-20) mm/hr Carbon Dioxide (22-30) mmol/L BUN (7-17) mg/dL Calcium (8.4-10.2) mg/dL Lactate Dehydrogenase 621 H (313-618) U/L Total Protein (PEP) (6.2-8.2) g/dL Albumin (PEP) (3.80-4.90) g/dL Zqoae-6-Buubvtjvp (0.10-0.40) g/dL Cqofl-7-Kvmgwvziw (0.60-1.00) g/dL Vitamin B12 3633.0 H (200.0-944.0) pg/mL Free [place] LC, Quant (0.33-1.94) mg/dL Free Lambda LC, Quant (0.57-2.63) mg/dL 03/13/19 03/14/19 03/14/19 Range/Units 11:51 07:39 07:39 RBC 3.33 L (3.80-5.40) m/uL Hgb 11.1 L (11.4-16.0) gm/dL MCV 102.9 H (80.0-100.0) fL RDW 16.8 H (11.5-15.5) % Plt Count 73 L (150-450) k/uL Neutrophils # (1.3-7.7) k/uL Lymphocytes # 0.9 L (1.0-4.8) k/uL ESR (0-20) mm/hr Carbon Dioxide 36 H (22-30) mmol/L BUN 34 H (7-17) mg/dL Calcium 8.3 L (8.4-10.2) mg/dL Lactate Dehydrogenase (313-618) U/L Total Protein (PEP) 5.1 L (6.2-8.2) g/dL Albumin (PEP) 2.33 L (3.80-4.90) g/dL Dflay-0-Uivubummf 0.42 H (0.10-0.40) g/dL Bmhnf-6-Fxgxwujhp 0.58 L (0.60-1.00) g/dL Vitamin B12 (200.0-944.0) pg/mL Free [place] LC, Quant 2.83 H (0.33-1.94) mg/dL Free Lambda LC, Quant 3.28 H (0.57-2.63) mg/dL Microbiology - Last 24 Hours (Table) 03/12/19 03:13 Blood Culture - Preliminary Blood No Growth after 48 hours 03/12/19 03:13 Urine Culture - Final Urine,Catheterized Assessment and Plan Assessment: Impression: 1 acute on chronic hypoxic respiratory failure mostly secondary to fluid overload and mild component of diastolic congestive heart failure. 2 acute hypercapnic respiratory failure, improving. 3 history of underlying COPD presently inactive 4 morbid obesity 5 coronary artery disease and previous CABG 6 obstructive sleep apnea maintained on CPAP at home 7 paroxysmal atrial fibrillation 8 fibromyalgia 9 narcolepsy 10 history of renal cancer and previous nephrectomy on the right side. 11 L1 compression fracture being addressed by orthopedics on the case. Recommendation: Continue present treatment plan including bronchodilators, diuretics, oxygen and titrate accordingly, monitor renal profile, titrate O2 as tolerated, and keep saturation above 89%. Orthopedics is addressing her back pain, will continue to follow. Time with Patient: Less than 30
--- NOTE | 2019-03-14 15:57 | P.PN ---
Objective - Vital Signs Vital signs: Vital Signs Temp 97.9 F 03/14/19 13:00 Pulse 72 03/14/19 13:00 Resp 17 03/14/19 14:50 BP 137/76 03/14/19 13:00 Pulse Ox 95 03/14/19 13:00 Intake & Output 03/13/19 03/14/19 03/14/19 18:59 06:59 18:59 Intake Total 680 450 240 Output Total 425 400 150 Balance 255 50 90 Weight 102.5 kg Intake: Intake, IV Titration 200 Amount Magnesium Sulfate-D5w Pmx 200 1 gm In Dextrose/Water 1 100ml.bag @ 100 mls/hr IVPB Q1H HI Rx#: [id number] Oral 480 450 240 Output: Urine 425 150 Urine/Stool Mix 400 Other: Voiding Method Indwelling Catheter Bedpan Bedpan Diaper Diaper Incontinent Incontinent # Voids 1 4 3 # Bowel Movements 1 0 - Exam Gen: Alert and Oriented, holding a bucket as she is nauseated and has phlegm like emesis (small amount) Head: NC,NT Mouth: Dry Membranes No palpable adenopathy supraclavicular, cervical, axillary. Neck: Supple, Trachea Midline Lungs: CLear to Ausculatation Bilateral Anterior, No increased effort Abdomen: Obese, Soft, Non-tender Skin: Miltiple areas of eccymosis on bilateral arms and legs Extremities: Evidence of lower extremity chronic vascular changes and discoloration: Pulses palpable, mild bilateral pedal edema Neuro: No sensory or motor deficits - Labs CBC & Chem 7: 03/14/19 07:39 03/14/19 07:39 Labs: Abnormal Lab Results - Last 24 Hours (Table) 03/13/19 03/13/19 03/13/19 Range/Units 04:41 11:51 11:51 RBC 3.40 L (3.80-5.40) m/uL Hgb 11.2 L (11.4-16.0) gm/dL MCV 104.3 H (80.0-100.0) fL RDW 16.1 H (11.5-15.5) % Plt Count 86 L (150-450) k/uL Neutrophils # 8.0 H (1.3-7.7) k/uL Lymphocytes # 0.8 L (1.0-4.8) k/uL ESR 35 H (0-20) mm/hr Carbon Dioxide (22-30) mmol/L BUN (7-17) mg/dL Calcium (8.4-10.2) mg/dL Total Protein (PEP) 5.1 L (6.2-8.2) g/dL Albumin (PEP) 2.33 L (3.80-4.90) g/dL Wlsgv-9-Lktaukwbm 0.42 H (0.10-0.40) g/dL Lrfkn-6-Vvtsoylux 0.58 L (0.60-1.00) g/dL Vitamin B12 3633.0 H (200.0-944.0) pg/mL Free [place] LC, Quant 2.83 H (0.33-1.94) mg/dL Free Lambda LC, Quant 3.28 H (0.57-2.63) mg/dL 03/14/19 03/14/19 Range/Units 07:39 07:39 RBC 3.33 L (3.80-5.40) m/uL Hgb 11.1 L (11.4-16.0) gm/dL MCV 102.9 H (80.0-100.0) fL RDW 16.8 H (11.5-15.5) % Plt Count 73 L (150-450) k/uL Neutrophils # (1.3-7.7) k/uL Lymphocytes # 0.9 L (1.0-4.8) k/uL ESR (0-20) mm/hr Carbon Dioxide 36 H (22-30) mmol/L BUN 34 H (7-17) mg/dL Calcium 8.3 L (8.4-10.2) mg/dL Total Protein (PEP) (6.2-8.2) g/dL Albumin (PEP) (3.80-4.90) g/dL Ttwgn-8-Ekbtuucob (0.10-0.40) g/dL [place]-0-Eoklxmsxc (0.60-1.00) g/dL Vitamin B12 (200.0-944.0) pg/mL Free [place] LC, Quant (0.33-1.94) mg/dL Free Lambda LC, Quant (0.57-2.63) mg/dL Microbiology - Last 24 Hours (Table) 03/12/19 03:13 Blood Culture - Preliminary Blood No Growth after 48 hours 03/12/19 03:13 Urine Culture - Final Urine,Catheterized Assessment and Plan (1) Macrocytic anemia Current Visit: Yes Status: Acute Code(s): D53.9 - NUTRITIONAL ANEMIA, UNSPECIFIED SNOMED Code(s): 96773892 (2) Thrombocytopenia Current Visit: Yes Status: Acute Code(s): D69.6 - THROMBOCYTOPENIA, UNSPECIFIED SNOMED Code(s): 837011157 (3) Low back pain Current Visit: Yes Status: Acute Priority: Medium Code(s): M54.5 - LOW BACK PAIN SNOMED Code(s): 592021713 (4) Compression fracture of L1 lumbar vertebra Current Visit: No Status: Acute Priority: Medium Code(s): S32.010A - WEDGE COMPRESSION FRACTURE OF FIRST LUMBAR VERTEBRA, INIT SNOMED Code(s): 972139956 (5) Lumbar back pain with radiculopathy affecting right lower extremity Current Visit: No Status: Acute Code(s): M54.16 - RADICULOPATHY, LUMBAR REGION SNOMED Code(s): 806899095 Plan: Assessment and Recommendations: Macrocytic Anemia: - It is unknown if this is a chronic condition for this patient as her history is limited to January of 2019. MCV elevated. and in the picture of Lymphocyt openia, thrombocytopenia it is resonable to perform further cytopenia work-up. - Monoclonal Protein was identified, will perform skeletal survey, 24 hour urine and check immunoglobulons for monoclonal gammopathy versus multiple myeloma diagnosis. - Review Peripheral Smear Thrombocytopenia: - Her platelet count appears labile and was in the range of 60-70K in January of this year. Unknown history for baseline - Will check Hepatic Function, Coags: PTT, PT, INR, Fibrinogen Lower Back Pain and Compression Fractures: - Work-up for underlying malignancy as a differential has been ordered Mild increased Liver Transiminitis: Hypoxic Respiratory Failure: Improved Plan: - Immunoglobulins - Skeletal Survey - 24 hour Urine Protein - I will discuss further with dr Aguilar regarding Bone Marrow Biopsy need Maggi Mcgee [facility]
--- NOTE | 2019-03-14 18:15 | NM ---
EXAMINATION TYPE: NM bone scan whole body DATE OF EXAM: 03/14/2019 COMPARISON: CT thoracolumbar spine from 3 days ago. HISTORY: Increasing back pain unexplained. Delayed whole-body scanning was performed following the injection of 21.6 mCi Tc 99m MDP. Images acq uired 4.5 hours post injection. Whole body images are obtained in the anterior and posterior projecti on. In addition spot images of the thorax abdomen and upper pelvis are obtained in multiple projectio ns as well as bilateral ankles and feet. FINDINGS: There is no suspicious increased radiotracer uptake to suggest metastatic disease to the bone or othe r osseous abnormality. There is dextroconvex scoliotic curvature redemonstrated centered in the mid t horacic spine. Mild radiotracer uptake at roughly left L2 level could be degenerative with spurring a t this level seen on corresponding CT. There is however mild uptake in sclerosis suggesting possible subacute fracture. Correlate likely with point tenderness at this level. Mild uptake at bilateral kne e joints is presumed degenerative as is symmetric. There is some uptake at first metatarsophalangeal joints bilaterally suggesting degenerative change related to bunions, correlate clinically. IMPRESSION: As above.
--- NOTE | 2019-03-14 18:25 | PN ---
PROGRESS NOTE DATE OF SERVICE: 03/14/2019 CHIEF COMPLAINT: Intractable back pain. HISTORY OF PRESENT ILLNESS: This lady continues complaining bitterly of low back pain. She does have a compression fracture of L1, but this is old. Her back pain is getting worse. She is now complaining of pain in the right leg. PHYSICAL EXAM: Chest is clear. Cardiac exam is normal. The abdomen is protuberant and soft. Pulses are good. Neurologically, lower extremities are normal. IMPRESSION: 1. Progressive progressively worsening back pain. 2. Right leg pain. PLAN: Total body bone scan. MMODL / IJN: [id number] /
[2019-03-14] MEDS: ESCITALOPRAM 20 MG TAB PO SCH (20:35)
--- NOTE | 2019-03-14 22:10 | XR ---
EXAMINATION TYPE: XR bone survey complete DATE OF EXAM: 03/14/2019 COMPARISON: CT thoracolumbar spine from 3 days ago. HISTORY: Multiple myeloma, initial workup. Technique: Whole body and survey including 2 view skull, single view chest x-ray, single view pelvis, 2 views entire spine, single view bilateral humeri and femurs Bony calvarium : 2 views of the bony calvarium demonstrate no definitive focal lytic lesions. Spine: Two views of the cervical, thoracic and lumbar spines are submitted. Exam suboptimal due to p atient's large body habitus thoracolumbar spine shows moderate multilevel disc space narrowing and mi ld multilevel spurring. No definitive lytic lesions are seen on recent CT, suboptimal evaluation on p zhou films is noted. Cervical spine shows uncovertebral facet degenerative changes bilaterally with s uboptimal evaluation on lateral view due to short neck but fairly satisfactory visualization on recen t CT. Chest x-ray: Low lung volumes with moderate central vascular congestion. Cardiomegaly with dual lead pacemaker. No definitive focal lytic rib lesions. PELVIS: Single view of the pelvis demonstrates no definitive focal lytic lesion. Stimulator device o verlies the sacrum. UPPER EXTREMITIES: Two views of the bilateral humeri show no definitive focal lytic lesions. High rid ing right humeral head consistent with chronic rotator cuff tear is redemonstrated. LOWER EXTREMITIES: 2 views of the bilateral femurs show no definitive focal lytic lesions. IMPRESSION: No definitive focal lytic osseous lesions.
[2019-03-15] MEDS: rOPINIRole HCL 4 MG TABLET PO SCH ×3 (00:35→12:00)
[2019-03-15 06:09] VITALS: RESP 17
[2019-03-15] MEDS: ISOSORBIDE MONONITRATE ER 30 MG TAB.ER.24H PO SCH (07:33)
[2019-03-15] MEDS: ASPIRIN 81 MG PO SCH (07:33)
[2019-03-15] MEDS: ALLOPURINOL 100 MG TAB PO SCH (07:33)
[2019-03-15] MEDS: GABAPENTIN 100 MG CAP PO SCH ×2 (07:33→16:35)
[2019-03-15] MEDS: METOPROLOL SUCCINATE (ER) 25 MG TAB.ER.24H PO SCH (07:33)
[2019-03-15] MEDS: FERROUS SULFATE 325 MG TAB PO SCH (07:33)
[2019-03-15] MEDS: PANTOPRAZOLE 40 MG TABLET PO SCH (07:33)
[2019-03-15] MEDS: HYDROmorphone 0.5 MG/0.5 ML SYRINGE IVP PRN (07:34)
[2019-03-15] MEDS: HEPARIN SODIUM,PORCINE 5,000 UNIT/ML 1 ML VIAL SQ SCH ×2 (07:34→16:35)
--- NOTE | 2019-03-15 10:46 | P.PN ---
Subjective Progress Note Date: 03/15/19 Principal diagnosis: Acute on chronic hypoxic respiratory failure secondary to decompensated heart failure, fluid overload, responded well to diuretics. This is a 68-year-old female patient who got transferred to the intensive care unit because of altered mental status, worsening shortness of breath and hypoxemia. The patient was initially admitted to the hospital on 03/11/2019 because of ongoing back pain. This is a chronic problem has been going on for more than a month and the patient has been having difficulty with mobility and gait and the patient was diagnosed having compression fracture of the L1. The patient was receiving epidural injection on outpatient basis. The patient came into the hospital because of worsening weakness and stiffness and she was unable to ambulate or bear any weight. She did not have any paralysis in lower extremities. No loss in the bowel or bladder functions. The CAT scan of the lumbosacral spine showed findings consistent with L1 compression fracture and there were no new findings. Meanwhile, the patient became altered and more short of breath and hypoxic overnight and the patient got transferred to the ICU. The blood gases prior to transfer showed hypoxemia and the chest x-ray showed cardiomegaly with a component of pulmonary vessel congestion. The patient was given IV Lasix pH she is adequately. She is currently on 40 to oxygen nasal cannula. She is less short of breath. She is able to speak of sentences. She seems to be more coherent compared to yesterday. She denies having any chest pain. No pleurisy. No hemoptysis. No focal neurological deficits that this point in time. She is obese with a BMI 55.1. Repeat blood gases from today showed a pH of 7.48 with a pCO2 of 43 and pO2 of 118 and this was done and FiO2 of 40%. There has been significant improvement in patient's oxygenation and acid base status compared to yesterday. This patient is known to have COPD, obstructive sleep apnea and she quit using her CPAP machine after the machine broke. She also gives history of narcolepsy. She gives history of kidney cancer and she has undergone a previous nephrectomy. She has undergone insertion of a bladder stimulator for chronic urinary bladder retention. She has history of chronic back pain, frequent falls, osteoporosis and coronary artery disease and she has undergone previous coronary artery bypass surgery. There is also history of atrial fibrillation. The patient's current rhythm is sinus. She has a permanent pacemaker in place. On 03/13/2019 I'm seeing this patient for a follow-up. The patient is awake and alert and she is following commands and answering questions. She is resting comfortably in bed. No significant respiratory distress or any shortness of br eath. No chest pain. She had diuresed more than 4 L and she remains in a negative fluid balance. Chest x-ray shows a component of mild four-vessel congestion. She is still complaining of back pain. Orthopedic surgery was consulted. The patient is taking a combination of [place] and Dilaudid for pain control. Her cardiac rhythm is sinus. She has a permanent pacemaker in place. Hemoglobin is 11. The electrolytes are all within normal limits with a creatinine of 0.7. No other issues for now. Reevaluated today on 03/14/2019, patient seems to be resting comfortably in bed, remains on diuretics, asymptomatic, no cough no wheezing no shortness of breath no chest pain. Her last chest x-ray yesterday showed mild interstitial edema consistent with mild congestive heart failure. Patient remains on diuretics. Labs today showed relatively normal CBC WBC count is 5.1 hemoglobin is 11.1. B asic metabolic profile is relatively normal, bicarb is 36, BUN is 34 creatinine 0.79. The patient is seen today 03/15/2018 in follow-up on the regular medical floor. She is currently resting comfortably in bed. Awake and alert in no acute distress. She denies any worsening shortness of breath, cough or congestion. She is maintaining O2 saturations in the high 90s on 4 L/m per nasal cannula. She's been afebrile. Hemodynamically stable. Blood culture reveals no growth to date. Urine culture reveals no growth. Bone scan reveals no evidence of metastatic lesions. Objective - Vital Signs Vital signs: Vital Signs Temp 98.4 F 03/15/19 05:00 Pulse 66 03/15/19 05:00 Resp 17 03/15/19 08:00 BP 124/69 03/15/19 05:00 Pulse Ox 98 03/15/19 05:00 Intake & Output 03/14/19 03/15/19 03/15/19 18:59 06:59 18:59 Intake Total 240 48 Output Total 150 Balance 90 48 Weight 101 kg Intake: Oral 240 48 Output: Urine 150 Other: Voiding Method Bedpan Bedpan Bedpan Diaper Diaper Diaper Incontinent Incontinent Incontinent # Voids 3 6 # Bowel Movements 0 - Exam GENERAL EXAM: Morbidly obese. Alert, active, comfortable in no apparent distress. On 4 L nasal cannula. HEAD: Normocephalic. EYES: Normal reaction of pupils, equal size. NOSE: Clear with pink turbinates. THROAT: No erythema or exudates. NECK: No masses, no JVD. CHEST: No chest wall deformity. LUNGS: Equal air entry with faint crackles in the posterior bases. CVS: S1 and S2 normal with no audible murmur, regular rhythm. ABDOMEN: No hepatosplenomegaly, normal bowel sounds, no guarding or rigidity. SPINE: No scoliosis or deformity SKIN: No rashes CENTRAL NERVOUS SYSTEM: No focal deficits, tone is normal in all 4 extremities. EXTREMITIES: There is no peripheral edema. No clubbing, no cyanosis. Peripheral pulses are intact. - Labs CBC & Chem 7: 03/14/19 07:39 03/14/19 07:39 Labs: Abnormal Lab Results - Last 24 Hours (Table) 03/13/19 03/13/19 Range/Units 04:41 11:51 Total Protein (PEP) 5.1 L (6.2-8.2) g/dL Albumin (PEP) 2.33 L (3.80-4.90) g/dL Zdttp-6-Ebisinbhj 0.42 H (0.10-0.40) g/dL Ydwfn-3-Nxivqflha 0.58 L (0.60-1.00) g/dL Vitamin B12 3633.0 H (200.0-944.0) pg/mL Free [place] LC, Quant 2.83 H (0.33-1.94) mg/dL Free Lambda LC, Quant 3.28 H (0.57-2.63) mg/dL Microbiology - Last 24 Hours (Table) 03/12/19 03:13 Blood Culture - Preliminary Blood No Growth after 72 hours Assessment and Plan Assessment: Impression: 1 acute on chronic hypoxic respiratory failure mostly secondary to fluid overload and mild component of diastolic congestive heart failure. 2 acute hypercapnic respiratory failure, improving. 3 history of underlying COPD presently inactive 4 morbid obesity 5 coronary artery disease and previous CABG 6 obstructive sleep apnea maintained on CPAP at home 7 paroxysmal atrial fibrillation 8 fibromyalgia 9 narcolepsy 10 history of renal cancer and previous nephrectomy on the right side. 11 L1 compression fracture being addressed by orthopedics on the case. Plan: The patient was seen and evaluated by Dr. James. She is currently stable from the pulmonary and critical care standpoint. Maintaining good O2 saturations in the 90s on 4 L/m per nasal cannula. We'll continue with her current treatment plan. We'll continue to follow. I, the cosigning physician, performed a history & physical examination of the patient. Lungs sounds with faint crackles in the posterior bases. Maintaining good O2 saturations in the 90s on 4 L/m per nasal cannula. I discussed the assessment and plan of care with my nurse practitioner, Pretty Arthur. I attest to the above note as dictated by her.
[2019-03-15 11:07] LABS: Immunoglobulin M 53.2 mg/dL (40.0-280.0)
[2019-03-15 11:36] VITALS: BP 102/54; PULSE 91; TEMP 97.9
--- NOTE | 2019-03-15 11:51 | P.PN ---
Subjective Progress Note Date: 03/15/19 Principal diagnosis: Lower Back Pain and cytopenias We have reviewed imaging of her bones and no apparent lytic or osseous lesions have been identified. It appers she has an identified monoclonal protein, which is likely insignificant at this time. Objective - Vital Signs Vital signs: Vital Signs Temp 97.9 F 03/15/19 11:35 Pulse 91 03/15/19 11:35 Resp 17 03/15/19 11:35 BP 102/54 03/15/19 11:35 Pulse Ox 98 03/15/19 11:35 Intake & Output 03/14/19 03/15/19 03/15/19 18:59 06:59 18:59 Intake Total 240 48 Output Total 150 Balance 90 48 Weight 101 kg Intake: Oral 240 48 Output: Urine 150 Other: Voiding Method Bedpan Bedpan Bedpan Diaper Diaper Diaper Incontinent Incontinent Incontinent # Voids 3 6 # Bowel Movements 0 - Exam Gen: Alert and Oriented, holding a bucket as she is nauseated and has phlegm like emesis (small amount) Head: NC,NT Mouth: Dry Membranes No palpable adenopathy supraclavicular, cervical, axillary. Neck: Supple, Trachea Midline Lungs: CLear to Ausculatation Bilateral Anterior, No increased effort Abdomen: Obese, Soft, Non-tender Skin: Miltiple areas of eccymosis on bilateral arms and legs Extremities: Evidence of lower extremity chronic vascular changes and discoloration: Pulses palpable, mild bilateral pedal edema Neuro: No sensory or motor deficits - Labs CBC & Chem 7: 03/14/19 07:39 03/14/19 07:39 Labs: Abnormal Lab Results - Last 24 Hours (Table) 03/13/19 Range/Units 11:51 Albumin (PEP) 2.33 L (3.80-4.90) g/dL Imhtn-4-Dxpborcrc 0.42 H (0.10-0.40) g/dL Atchd-5-Ldigfhzia 0.58 L (0.60-1.00) g/dL Free [place] LC, Quant 2.83 H (0.33-1.94) mg/dL Free Lambda LC, Quant 3.28 H (0.57-2.63) mg/dL Microbiology - Last 24 Hours (Table) 03/12/19 03:13 Blood Culture - Preliminary Blood No Growth after 72 hours Assessment and Plan (1) Macrocytic anemia Current Visit: Yes Status: Acute Code(s): D53.9 - NUTRITIONAL ANEMIA, UNSPECIFIED SNOMED Code(s): 06462097 (2) Thrombocytopenia Current Visit: Yes Status: Acute Code(s): D69.6 - THROMBOCYTOPENIA, UNSPECIFIED SNOMED Code(s): 303818651 (3) Low back pain Current Visit: Yes Status: Acute Priority: Medium Code(s): M54.5 - LOW BACK PAIN SNOMED Code(s): 233547868 (4) Compression fracture of L1 lumbar vertebra Current Visit: No Status: Acute Priority: Medium Code(s): S32.010A - WEDGE COMPRESSION FRACTURE OF FIRST LUMBAR VERTEBRA, INIT SNOMED Code(s): 430201396 (5) Lumbar back pain with radiculopathy affecting right lower extremity Current Visit: No Status: Acute Code(s): M54.16 - RADICULOPATHY, LUMBAR R EGION SNOMED Code(s): 970973998 Plan: Assessment and Recommendations: Macrocytic Anemia: - It is unknown if this is a chronic condition for this patient as her history is limited to January of 2019. MCV elevated. and in the picture of Lymphocytopenia, thrombocytopenia it is resonable to perform further cytopenia work-up. - Monoclonal Protein was identified, performed skeletal survey, 24 hour urine and check immunoglobulins for monoclonal gammopathy versus multiple myeloma diagnosis. - Review Peripheral Smear Thrombocytopenia: - Her platelet count appears labile and was in the range of 60-70K in January of this year. - Unknown history for baseline Lower Back Pain and Compression Fractures: - Work-up for underlying malignancy as a differential has been ordered Mild increased Liver Transiminitis: Hypoxic Respiratory Failure: Improved Plan: - Immunoglobulins Reviewed - Skeletal Survey Reviewed and no evidence of lytic or osseous lesions mentioned - 24 hour Urine Protein - Awaiting results - The etiology of her cytopenias are still unclear. - Will have her follow-up with Dr. Aguilar after rehab for re-assessment and co nsideration of further work-up. Maggi Mcgee [facility] Physician Attest: I have completed the full history and physical and developed the above impression and plan, agree with dictation, dictated as a scribe
--- NOTE | 2019-03-15 16:06 | DS ---
DISCHARGE SUMMARY . CHIEF COMPLAINT: Generalized weakness and severe back pain. HISTORY OF PRESENT ILLNESS AND PHYSICAL EXAM: Details of this lady's history and physical can be found in the initial workup. LABORATORY STUDIES: While she was in the hospital, she had laboratory studies, details of which can be found in the laboratory data section of her chart. COURSE IN HOSPITAL: After admission she was placed on bedrest and started on intravenous fluids and analgesics. She continued to complain bitterly of pain in the spine all the way from the neck down to the sacrum. She was found to have a compression fracture of L1, but this was old. She was seen by Orthopedics and by on Oncology. CT of the dorsal and the LS spine were unremarkable. The bone scan suggests that there could be a subacute fracture of the L2. There was nothing else to suggest any other bone pathology. Laboratory studies demonstrated mild anemia with a hemoglobin around 11. Sedimentation rate was slightly elevated at 35. Liver function studies were also slightly elevated with AST of 50, ALT of 58, alkaline phosphatase 204, LDH of 621. Albumin was low at 2.8. Alpha 1 globulins were high. B12 is elevated at 3633. She has a slight elevation in her free kappa LC at 2.83 and free lambda at 3.28. Oncology felt that she did not have multiple myeloma. Arrangements were made for her to be transferred tomorrow to [facility] where her workup will continue. FINAL DIAGNOSES: 1. Progressive and severe total dorsal and lumbosacral spine pain. 2. Compression fracture of L1 (old). 3. Possible new fracture at L2. 4. Rule out multiple myeloma. OPERATIONS: None. CONSULTATIONS: Oncology and orthopedics. She is improved. MMODL / IJN: [id number] /
[2019-03-15 22:30] LABS: Total Protein 24 Hour,Urine 42 mg/24hr (42.0-225.0); Total Volume 24 Hour,Urine 700 mls (250-2400)
== END 2019-03-15 17:35 | disposition home health service (06) | DRG 291 ==
LOC: EC 00:25 → SUPCPDRO 00:25 → 4MS4W 04:25 → 3NMEDONC 11:45 → 2SICU 03-12 03:44 → OBSVTOIN 03-12 09:40 → 4MS4W 03-13 17:37 → 3NMEDONC 03-14 17:47
PROVIDERS: ADMIT Family Medicine; ATTEND Family Medicine
DX: I50.33 Acute on chronic diastolic (congestive) heart failure (principal); J96.22 Acute and chronic respiratory failure with hypercapnia; I46.9 Cardiac arrest, cause unspecified; J96.21 Acute and chronic respiratory failure with hypoxia; M48.56XA Collapsed vertebra, not elsewhere classified, lumbar region, initial encounter for fracture; T76.11XA Adult physical abuse, suspected, initial encounter; Z68.43 Body mass index [BMI] 50.0-59.9, adult; D69.6 Thrombocytopenia, unspecified; J44.9 Chronic obstructive pulmonary disease, unspecified; E66.01 Morbid (severe) obesity due to excess calories; I48.0 Paroxysmal atrial fibrillation; D53.9 Nutritional anemia, unspecified; G89.29 Other chronic pain; M79.7 Fibromyalgia; K21.9 Gastro-esophageal reflux disease without esophagitis; I25.2 Old myocardial infarction; G47.33 Obstructive sleep apnea (adult) (pediatric); G25.81 Restless legs syndrome; G43.909 Migraine, unspecified, not intractable, without status migrainosus; M81.0 Age-related osteoporosis without current pathological fracture; K58.9 Irritable bowel syndrome, unspecified; G47.419 Narcolepsy without cataplexy; R33.9 Retention of urine, unspecified; Z83.3 Family history of diabetes mellitus; S40.021A Contusion of right upper arm, initial encounter; S40.022A Contusion of left upper arm, initial encounter; S80.11XA Contusion of right lower leg, initial encounter; S80.12XA Contusion of left lower leg, initial encounter; M47.9 Spondylosis, unspecified; Z91.81 History of falling; R53.1 Weakness; R32 Unspecified urinary incontinence; M51.16 Intervertebral disc disorders with radiculopathy, lumbar region; I25.10 Atherosclerotic heart disease of native coronary artery without angina pectoris; Z79.899 Other long term (current) drug therapy; Z79.82 Long term (current) use of aspirin; Z87.01 Personal history of pneumonia (recurrent); Z85.528 Personal history of other malignant neoplasm of kidney; Z96.1 Presence of intraocular lens; Z90.49 Acquired absence of other specified parts of digestive tract; Z95.1 Presence of aortocoronary bypass graft; Z95.0 Presence of cardiac pacemaker; Z90.5 Acquired absence of kidney; Z98.42 Cataract extraction status, left eye; Z98.41 Cataract extraction status, right eye; Z91.018 Allergy to other foods; Z91.048 Other nonmedicinal substance allergy status; Z82.49 Family history of ischemic heart disease and other diseases of the circulatory system
CPT/HCPCS: 36415; 36600; 71045; 72129; 72132; 77075; 78306; 80048; 80053; 81001; 81050; 82140; 82553; 82607; 82728; 82746; 82784; 82805; 83010; 83540; 83550; 83605; 83615; 83735; 83880; 83883; 84100; 84156; 84165; 84484; 85025; 85379; 85384; 85610; 85652; 85730; 86038; 86334; 87040; 87086; 93005; 93306; 94640; 96360; 96361; 99285

== ENCOUNTER → 2019-03-29 | Outpatient (CLI) | payer MEDICARE ==
[2019-03-29 15:02] VITALS: BP 145/77; PULSE 121; RESP 20; TEMP 98.5
--- NOTE | 2019-03-29 15:47 | P.PAINPG ---
Subjective Progress Note Date: 03/29/19 This is follow-up visit for this 68 years old female with history of severe low back pain with radiation to the lower extremities, she is diagnosed with lumbar spondylosis, lumbar compression fracture, and myofascial pain syndrome, lumbar epidural steroid injections and trigger point injection lumbar area 2, patient reported that she had short-term benefit from the injection, she continued to have severe low back pain, intensity of the pain interfering with her quality of life and patient not able to ambulate because of the pain, she feels her lower extremity weak, she denies any fever or night sweats, Physical Examinations : -Constitutiona : Cooperative , not in acute distress . -HEENT : nech ; supple , no Lymphadenopathy , normal thyroid size . eyes : no ptosis , no icterus, no photophobia . ENT : normal of hearing , normal oropharynx , no Thrush . - Respiratory : Chest clear to auscultations Bilaterally , no wheezing , no Rhonchi . - Cardiovascula : regular rate and rhythem , S1 , S2 , no S3 , no S4. - Gastrointestina : abdomen soft no tenderness , bowel sounds , no organomegally . - Genitourinary : Defferred . - neurologic : Cranial nerve II to XII intact , no focal neurological deffecit . -psychatric : alert , oriented X 3 , appropriate affect , intact judgment and insight . -Lymphatic : no Lymphadenopathy . - musculoskeltal : Lumber spine moter stegnth lower extremities ,thigh and legs 3-4/5 Right side , 4/5 Left side deep tendon reflexes : normal Knee Jerk , normal ankle Jerk positive lumber facet Loading Test Range of motion of the lumbar spine Flexion 30 degrees, extension 10 degrees strait leg raising test , positive at 30 degree [place] test positive RT and positive LT . Sever tenderness over the Sacroiliac joint on the R and L sides [place] test positive bilaterally. Seated flexion test positive bilaterally. Multiple trigger pointsin the lumbar paravertebral muscles. Labs: Computed tomography scan of the lumbar spine compression fracture at L1 and multilevel lumbar spondylosis. Assessment and Plan Plan: Assessment and plan= severe low back pain secondary to multifactorial causes, depression fracture of the lumbar spine, lumbar degenerative disc disease, lumbar spondylosis, myofascial pain syndrome lumbar area, patient had short-term benefit from lumbar epidural steroid injection and trigger point injection done twice Recommend to schedule patient to have diagnostic medial branch block lumbar area is 34, L4 5, L5-S1 Patient could benefit from Neurontin 100 mg 3 times a day, and Flexeril 5 mg every 8 hours. Objective - Vital Signs Vital signs: Vital Signs Temp 98.5 F 03/29/19 14:58 Pulse 121 H 03/29/19 14:58 Resp 20 03/29/19 15:06 BP 145/77 03/29/19 14:58 Pulse Ox 87 L 03/29/19 14:58 Intake & Output 03/28/19 03/29/19 03/29/19 18:59 06:59 18:59 Weight 127.913 kg PQRS Measure Charge Sheet Measure #130: Documentation of Current Meds in Medical Chart: Patient's medications documented in chart Measure #226: Tobacco Use: Screen & Cessation Intervention: Pt not a tobacco user Measure #111: Pneumonia Vaccination: Pneumococcal vaccine administered or previously received Measure #47: Advance Care Plan: Advance care planning discussed & documented, pt chose/unable to give Measure #412: Opioid Treatment Agreement: Documented signed opioid trtmnt agreemnt min once during opioid trtmnt Measure #408: Opioid Therapy Follow-up Evaluation: Patient had f/u eval minimum every 3 months during opioid therapy Measure #317: Preventitive Care & Scrn High Bld Press & F/U: Pre-hypertensive or hypertensive BP documented, pt will f/u with PCP Measure #128: Body Mass Index (BMI) Screening & Follow-up: BMI documented ABOVE normal parameters - f/u documented Measure #131: Pain Assessment & Follow-up: Pain positive & plan documented, Follow-up scheduled Measure #431: Unhealthy Alcohol Use Preventative Care & Scrn: Patient not identified as an unhealthy alcohol user PQRS Narrative: Smoking Status Never smoker Do You Want the Pneumonia Vaccine Up to Date Vaccine AT THIS TIME? Blood Pressure 145/77 Pain Intensity [Bilateral 10 Lower Posterior Back] Hx Alcohol Use (MH) No Home Medications: Ambulatory Orders Allopurinol [Zyloprim] 100 mg PO DAILY 02/03/19 Aspirin [[place]ill Aspirin EC] 81 mg PO DAILY 02/03/19 Carbidopa/Levodopa [Sinemet 25-250 mg] 3 - 4 tab PO DAILY PRN 02/03/19 Escitalopram [Lexapro] 20 mg PO HS 02/03/19 Gabapentin [Neurontin] 100 mg PO TID 02/03/19 Isosorbide Mononitrate ER [Imdur] 30 mg PO DAILY 02/03/19 Metoprolol Succinate [Toprol XL] 25 mg PO DAILY 02/03/19 Modafinil [Provigil] 100 mg PO DAILY PRN 02/03/19 Ferrous Sulfate [Iron] 325 mg PO DAILY 03/01/19 Nitroglycerin Sl Tabs [Nitrostat] 0.4 mg SUBLINGUAL Q5M PRN 03/01/19 Nystatin Powder 1 applicate TOPICAL DAILY PRN 03/01/19 Omeprazole [PriLOSEC] 40 mg PO DAILY 03/01/19 rOPINIRole HCL [Requip] 5 mg PO QID 03/01/19 Controlled Substance Measures - Controlled Substance Measures Is patient prescribed a controlled substance at discharge?: Yes When asked, does pt state using other controlled substances?: No If prescribed controlled substance>3 days was MAPS reviewed?: Yes If Rx opioid, was Start Talking consent form obtained?: Yes If opioid is for acute pain is fill amount 7 days or less?: No Was information provided regarding opioid addiction?: Yes
== END ==
LOC: PNWHC3 13:57
PROVIDERS: ATTEND Specialist
DX: M51.36 Other intervertebral disc degeneration, lumbar region (principal); M47.816 Spondylosis without myelopathy or radiculopathy, lumbar region; M79.18 Myalgia, other site; S32.008A Other fracture of unspecified lumbar vertebra, initial encounter for closed fracture; Z79.82 Long term (current) use of aspirin; Z79.899 Other long term (current) drug therapy
CPT/HCPCS: 99211

== ENCOUNTER 2019-04-11 08:30 | Day surgery (SDC) | payer MEDICARE ==
[2019-04-11 08:59] VITALS: TEMP 98.3
[2019-04-11] MEDS ORDERED: IV FLUID CONTINUATION 1,000 ML IV ONE (10:31)
--- NOTE | 2019-04-11 10:34 | P.PCN ---
Date of Procedure: 04/11/19 Description of Procedure: Lumbar Facet Joint/ Medial Branch Block Procedure: Bilateral Lumbar Facet Joint/ Medial Branch Block injection under biplanar fluoroscopy Preoperative diagnosis: Lumbar spondylosis Postoperative diagnosis: Lumbar spondylosis Surgeon: David Larry MD Anesthesia: Local The patient was seen and examined in the [facility]. Procedure risks and benefits were fully reviewed with the patient. The patient understands this is a diagnostic if local only is used, as will be the case today. The goal of the procedure is to inject medication into the medial branch or small nerves that go into the facet joints. In this way, we can hopefully identify which of these joints, if any, may be contributing to their pain. Informed consent for procedure was obtained. The patient was taken into the office fluoroscopy procedure room and placed prone on the table. A pillow was placed under the abdomen to reduce lumbar lordosis. Vital signs were closely monitored during the procedure. The skin over the area was prepped with ChloraPrep and draped in usual sterile manner. Sterile technique was observed throughout procedure. Under biplanar fluoroscopic guidance, C-arm obliqued ipsilateral to 10-15 the target injection area of the L3-L4, L4-L5, L5-S1 facet joint Lidocaine 1% was used with a 25 gauge needle to achieve adequate local anesthesia of the skin and subcutaneous tissue. A 22 gauge 5 inch spinal needle was then placed at the most medial and superior aspect of the transverse process near the "eye of the Tomás dog". Aspiration for blood was negative. A solution consisting of 7 ML 0.5% ropivacaine and 40 mg of Kenalog was utilized. 1 mL was injected at the lateral branch bilaterally. [place] were withdrawn intact. No complications were noted during the procedure. The patient tolerated the procedure well. The patient was placed in supine po sition and transferred to the recovery area for observation and remained stable until discharged home. Home discharge instructions were given to the patient by the staff. The patient will schedule a follow up as directed.
[2019-04-11 11:10] VITALS: BP 142/78; PULSE 72; RESP 20
--- NOTE | 2019-04-11 12:14 | FL ---
EXAMINATION TYPE: FL guided pain mgmt statistic DATE OF EXAM: 04/11/2019 FLUOROSCOPY Fluoroscopy time of 1 minute 1 seconds was used during lumbar spine pain intervention procedure. 3 i mage/s document/s the procedure.
== END 2019-04-11 11:33 | disposition home or self-care (01) ==
LOC: ORPAIN 08:30
PROVIDERS: ATTEND Anesthesiology
DX: M47.816 Spondylosis without myelopathy or radiculopathy, lumbar region (principal); M79.18 Myalgia, other site; Z79.899 Other long term (current) drug therapy; Z79.82 Long term (current) use of aspirin
CPT/HCPCS: 64493; 64494; 64495; J3301; J2001

== ENCOUNTER 2019-04-22 00:57 | Observation (INO) | payer MEDICARE, OTHER ==
[2019-04-22] MEDS ORDERED: HYDROcodone/APAP 5-325MG 1 EACH TAB PO STA (01:50)
[2019-04-22 01:56] LABS: Albumin 2.8 g/dL (3.5-5.0); Calcium 8.7 mg/dL (8.4-10.2); Magnesium 1.6 mg/dL (1.6-2.3); Potassium 4.3 mmol/L (3.5-5.1); Total Bilirubin 0.5 mg/dL (0.2-1.3); Total Protein 5.6 g/dL (6.3-8.2)
[2019-04-22 02:01] LABS: INR 0.9 (<1.2); Partial Thromboplastin Time 23.2 sec (22.0-30.0); Prothrombin Time 10.2 sec (9.0-12.0)
[2019-04-22 02:03] LABS: Anisocytosis Slight; Basophils % (A) 0 %; Eosinophils # (A) 0.2 k/uL (0-0.7); Eosinophils % (A) 3 %; HCT 31.9 % (34.0-46.0); HGB 10.5 gm/dL (11.4-16.0); Lymphocytes # (A) 0.8 k/uL (1.0-4.8); Lymphocytes % (A) 14 %; MCH 33.7 pg (25.0-35.0); MCHC 32.8 g/dL (31.0-37.0); MCV 102.7 fL (80.0-100.0); Macrocytosis Moderate; Mean Platelet Volume 8.5; Monocytes # (A) 0.4 k/uL (0-1.0); Monocytes % (A) 6 %; Neutrophils # (A) 4.6 k/uL (1.3-7.7); Neutrophils % (A) 76 %; RDW 16.7 % (11.5-15.5)
[2019-04-22 02:23] LABS: Hypochromasia (M) Present; Poikilocytosis (M) Present
[2019-04-22 02:24] LABS: Platelet Count 81 k/uL (150-450)
[2019-04-22 02:25] LABS: Appearance,Urine Cloudy (Clear); Bacteria,Urine Occasional /hpf; Bilirubin,Urine Negative (Negative); Blood,Urine Small (Negative); Color,Urine Yellow; Glucose,Urine (UA) Negative (Negative); Ketones,Urine 1+ (Negative); Leukocyte Esterase,Urine Large (Negative); Mucus,Urine Few /hpf; Nitrite,Urine Negative (Negative); PH, Urine 5.5 (5.0-8.0); Protein,Urine Trace (Negative); RBC,Urine 3 /hpf (0-5); Specific Gravity,Urine 1.041 (1.001-1.035); Squamous Epithelial Cell,Urine 11 /hpf (0-4); WBC,Urine 8 /hpf (0-5)
--- NOTE | 2019-04-22 02:27 | XR ---
EXAM: XR Chest, 1 View CLINICAL HISTORY: ITS.REASON XR Reason: weakness TECHNIQUE: Frontal view of the chest. COMPARISON: 03/12/19 x-ray IMPRESSION: Cardiomegaly. Possible left pleural effusion. Increased opacity in the right lower lobe, possibly atelectasis versus edema.
[2019-04-22] MEDS ORDERED: MORPHINE SULFATE 4 MG/ML SYRINGE IV STA (03:11)
[2019-04-22] MEDS ORDERED: DOCUSATE 100 MG CAP PO PRN (06:40)
[2019-04-22] MEDS ORDERED: ACETAMINOPHEN TAB 325 MG TAB PO PRN (06:40)
[2019-04-22] MEDS ORDERED: NALOXONE 0.4 MG/ML 1 ML VIAL IV PRN (06:40)
[2019-04-22] MEDS ORDERED: HYDROcodone/APAP 5-325MG 1 EACH TAB PO PRN (06:40)
[2019-04-22] MEDS ORDERED: MODAFINIL 100 MG TAB PO PRN (06:42)
[2019-04-22] MEDS ORDERED: CARBIDOPA-LEVODOPA 25-250 MG 1 EACH TAB PO PRN (06:42)
[2019-04-22] MEDS ORDERED: HYDROcodone/APAP 10-325MG 1 EACH TAB PO PRN (06:42)
[2019-04-22] MEDS ORDERED: NYSTATIN 100,000 UNIT/GM POWD 15 GM TOPICAL PRN (06:42)
[2019-04-22] MEDS ORDERED: SODIUM CHLORIDE 0.9% 1,000 ML IV SCH (06:45)
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
[2019-04-22] MEDS ORDERED: PANTOPRAZOLE 40 MG TABLET PO SCH (07:30)
[2019-04-22 07:36] VITALS: RESP 20
[2019-04-22] MEDS: GABAPENTIN 100 MG CAP PO SCH ×2 (08:53→15:52)
[2019-04-22] MEDS: MORPHINE SULFATE 4 MG/ML SYRINGE IV PRN ×2 (08:54→13:43)
[2019-04-22] MEDS: rOPINIRole HCL 4 MG TABLET PO SCH ×2 (08:54→13:41)
[2019-04-22] MEDS ORDERED: FERROUS SULFATE 325 MG TAB PO SCH (09:00)
[2019-04-22] MEDS ORDERED: ISOSORBIDE MONONITRATE ER 30 MG TAB.ER.24H PO SCH (09:00)
[2019-04-22] MEDS ORDERED: FAMOTIDINE 20 MG TAB PO SCH (09:00)
[2019-04-22] MEDS ORDERED: ASPIRIN 81 MG PO SCH (09:00)
[2019-04-22] MEDS ORDERED: NITROGLYCERIN SL TABS 0.4 MG TAB SUBLINGUAL PRN (10:48)
[2019-04-22 14:57] VITALS: BP 131/61; PULSE 65; TEMP 98.4
[2019-04-22] MEDS ORDERED: ESCITALOPRAM 20 MG TAB PO SCH (21:00)
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
== END 2019-04-22 18:29 | disposition home health service (06) ==
LOC: EC 00:57 → 4MS4W 06:42
PROVIDERS: ADMIT Hospitalist; ATTEND Hospitalist
DX: M48.56XA Collapsed vertebra, not elsewhere classified, lumbar region, initial encounter for fracture (principal); J44.9 Chronic obstructive pulmonary disease, unspecified; G47.33 Obstructive sleep apnea (adult) (pediatric); M79.7 Fibromyalgia; I25.10 Atherosclerotic heart disease of native coronary artery without angina pectoris; Z95.5 Presence of coronary angioplasty implant and graft; J96.12 Chronic respiratory failure with hypercapnia; G47.419 Narcolepsy without cataplexy; K21.9 Gastro-esophageal reflux disease without esophagitis; E66.9 Obesity, unspecified; Z68.36 Body mass index [BMI] 36.0-36.9, adult; Z90.5 Acquired absence of kidney; Z85.528 Personal history of other malignant neoplasm of kidney; Z95.1 Presence of aortocoronary bypass graft; Z95.0 Presence of cardiac pacemaker; G25.81 Restless legs syndrome; G89.29 Other chronic pain; I50.9 Heart failure, unspecified; M19.90 Unspecified osteoarthritis, unspecified site; I25.2 Old myocardial infarction; I48.91 Unspecified atrial fibrillation; J96.11 Chronic respiratory failure with hypoxia; K58.9 Irritable bowel syndrome, unspecified; M81.0 Age-related osteoporosis without current pathological fracture; Z87.01 Personal history of pneumonia (recurrent); Z99.81 Dependence on supplemental oxygen; Z98.42 Cataract extraction status, left eye; Z98.41 Cataract extraction status, right eye; Z96.1 Presence of intraocular lens; Z79.82 Long term (current) use of aspirin; Z79.899 Other long term (current) drug therapy; Z82.49 Family history of ischemic heart disease and other diseases of the circulatory system; Z83.3 Family history of diabetes mellitus
CPT/HCPCS: 96376; 96374; 99285; 36415; 93005; 80053; 83605; 83735; 84484; 85025; 85610; 85730; 81001; 71045; G0378; J2270

== ENCOUNTER 2019-05-05 23:28 | Inpatient (IN) | payer MEDICARE ==
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
[2019-05-05] MEDS ORDERED: SODIUM CHLORIDE 0.9% 1,000 ML IV ONE (23:46)
[2019-05-06 00:05] LABS: Appearance,Urine Clear (Clear); Bilirubin,Urine Negative (Negative); Blood,Urine Negative (Negative); Color,Urine Yellow; Glucose,Urine (UA) Negative (Negative); Ketones,Urine Negative (Negative); Leukocyte Esterase,Urine Negative (Negative); Nitrite,Urine Negative (Negative); Protein,Urine Negative (Negative); Urobilinogen,Urine <2.0 mg/dL (<2.0)
[2019-05-06] MEDS ORDERED: MORPHINE SULFATE 4 MG/ML SYRINGE IVP STA (00:11)
[2019-05-06 00:17] LABS: Basophils % (A) 0 %; Eosinophils # (A) 0.1 k/uL (0-0.7); Eosinophils % (A) 2 %; HCT 38.7 % (34.0-46.0); HGB 11.7 gm/dL (11.4-16.0); Hypochromasia Slight; Lymphocytes # (A) 0.9 k/uL (1.0-4.8); Lymphocytes % (A) 15 %; MCH 31.1 pg (25.0-35.0); MCHC 30.1 g/dL (31.0-37.0); MCV 103.4 fL (80.0-100.0); Macrocytosis Moderate; Mean Platelet Volume 7.7; Monocytes # (A) 0.3 k/uL (0-1.0); Monocytes % (A) 5 %; Neutrophils # (A) 4.8 k/uL (1.3-7.7); Neutrophils % (A) 75 %; RBC 3.75 m/uL (3.80-5.40); RDW 15.6 % (11.5-15.5); WBC 6.4 k/uL (3.8-10.6)
[2019-05-06 00:24] LABS: Albumin 3.4 g/dL (3.5-5.0); Calcium 9.1 mg/dL (8.4-10.2); Magnesium 1.8 mg/dL (1.6-2.3); Potassium 4.2 mmol/L (3.5-5.1); Total Protein 6.8 g/dL (6.3-8.2)
[2019-05-06 00:36] LABS: Platelet Count 94 k/uL (150-450)
[2019-05-06] MEDS ORDERED: NALOXONE 0.4 MG/ML 1 ML VIAL IV PRN (01:33)
[2019-05-06] MEDS ORDERED: LORazepam 0.5 MG TAB PO PRN (01:33)
[2019-05-06] MEDS ORDERED: DILTIAZEM DRIP BOLUS FROM BAG 1 MG SOLN IV ONE (02:49)
[2019-05-06] MEDS ORDERED: DILTIAZEM 125 MG in SODIUM CHLORIDE 0.9% 100 ML IV SCH (03:00)
[2019-05-06] MEDS: HYDROcodone/APAP 10-325MG 1 EACH TAB PO PRN ×3 (03:53→22:24)
[2019-05-06] MEDS: N PO PRN ×2 (03:53→09:50)
[2019-05-06 04:29] VITALS: BMI 43.7
[2019-05-06] MEDS: GABAPENTIN 100 MG CAP PO SCH ×3 (09:50→22:24)
[2019-05-06] MEDS: CARBIDOPA-LEVODOPA 25-250 MG 1 EACH TAB PO SCH ×2 (09:50→15:54)
--- NOTE | 2019-05-06 10:28 | P.CRDCN ---
History of Present Illness Consult date: 05/06/19 Requesting physician: Nasim Colon Consult reason: atrial fibrillation Chief complaint: Anxiety History of present illness: This is a pleasant 69-year-old female who has a history of diabetes, hypertension, renal disease, hyperlipidemia, prior pacemaker implantation, history of coronary artery disease with prior bypass surgery, COPD, obstructive sleep apnea, no longer uses a BiPAP at home, history of nephrectomy for renal cell cancer, Parkinson's, who recently lost her 2 days ago, her neighbor heard her screaming and crying in her apartment, apparently the patient has been unable to sleep, has not eaten or taken any of her medications recently. She did have to go to the home to make some arrangements, was extremely fatigued, had sat down in a chair and could not get up. She was brought to the emergency room for further evaluation and treatment. Her EKG on arrival here showed atrial fibrillation with a rapid ventricular response, for this reason a cardiology consultation had been requested. Blood pressure 124/60, heart rate in the 120s this morning, 95% on 3 L of oxygen. White blood cell count 6.4, hemoglobin 11.7, platelet count 94. Sodium 143, potassium 4.2, BUN 25 creatinine 0.8. Magnesium 1.8. At the time of my examination this morning, carolann turner appears very anxious, crying most of the time during our conversation. Denies any chest discomfort, no palpitations, no shortness of breath. Past Medical History Past Medical History: Atrial Fibrillation, Cancer, Chest Pain / Angina, Heart Failure, COPD, Fibromyalgia, GERD/Reflux, Myocardial Infarction (DC), Osteoarthritis (OA), Pneumonia, Sleep Apnea/CPAP/BIPAP Additional Past Medical History / Comment(s): Chronic low back pain which radiates down bilateral legs, lumbar disc disease, spondylosis, lumbar compression fracture, myofascial pain syndrome, generalized arthritis, migraines, gout bilateral feet, osteoporosis, frequent falls, chronic urine retention/incontinence/has bladder stimulator, 1972 R renal cancer with nephrectomy, anemia, cardiac murmur, home oxygen at 2-3L/NC ATC, KOFFI but device is broken, vertigo, narcolepsy, IBS, Last Myocardial Infarction Date:: 2004 History of Any Multi-Drug Resistant Organisms: None Reported Past Surgical History: Appendectomy, Coronary Bypass/CABG, Heart Catheterization, Orthopedic Surgery, Pacemaker Additional Past Surgical History / Comment(s): Rt nephrectomy, lumber epidural injections-last one 03/07/19, bladder stimulator, fabricio carpal tunnel releases, surgery on left hand, 1 vessel CABG 2004, fabricio cataracts with lens implants, colonoscopy. Past Anesthesia/Blood Transfusion Reactions: Previous Problems w/ Anesthesia Additional Past Anesthesia/Blood Transfusion Reaction / Comment(s): Pt has received blood in past without reaction. Type of Cardiac Device: Permanent Pacemaker Device Placement Date:: 2006 Past Psychological History: Anxiety Additional Psychological History / Comment(s): She no longer drives. She ambulates with a walker. 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 She has home oxygen and a nebulizer. Has used [facility] and help form [employer]. Smoking Status: Never smoker Past Alcohol Use History: None Reported Past Drug Use History: None Reported - Past Family History Mother Family Medical History: Diabetes Mellitus, Hypertension, Renal Disease Father Additional Family Medical History / Comment(s): Father comitted suicide. Family Family Medical History: Coronary Artery Disease (CAD) Medications and Allergies Home Medications Medication Instructions Recorded Confirmed Type Allopurinol [Zyloprim] 100 mg PO Q30D 02/03/19 05/05/19 History Aspirin [[place] Aspirin EC] 81 mg PO DAILY 02/03/19 05/05/19 History Carbidopa/Levodopa [Sinemet 25-250 3 - 4 tab PO DAILY PRN 02/03/19 05/05/19 History mg] Escitalopram [Lexapro] 20 mg PO HS 02/03/19 05/05/19 History Gabapentin [Neurontin] 100 mg PO TID 02/03/19 05/05/19 History Isosorbide Mononitrate ER [Imdur] 30 mg PO QAM 02/03/19 05/05/19 History Modafinil [Provigil] 100 mg PO DAILY PRN 02/03/19 05/05/19 History Ferrous Sulfate [Iron] 325 mg PO DAILY 03/01/19 05/05/19 History Nitroglycerin Sl Tabs [Nitrostat] 0.4 mg SUBLINGUAL Q5M PRN 03/01/19 05/05/19 History Nystatin Powder 1 applicate TOPICAL DAILY PRN 03/01/19 05/05/19 History Omeprazole [PriLOSEC] 40 mg PO QAM 03/01/19 05/05/19 History rOPINIRole HCL [Requip] 5 mg PO QID 03/01/19 05/05/19 History HYDROcodone/APAP 10-325MG [[place] 1 tab PO Q6H PRN 04/08/19 05/05/19 History 10-325] Allergies Allergy/AdvReac Type Severity Reaction Status Date / Time adhesive tape Allergy skin peels Verified 05/05/19 23:43 off Fish Containing Products Allergy Nausea Verified 05/05/19 23:43 [Fish] Sulfa (Sulfonamide Allergy Unknown Verified 05/05/19 23:43 Antibiotics) Physical Exam Vitals: Vital Signs Temp Pulse Pulse Resp BP BP Pulse Ox 05/06/19 09:58 98.6 F 85 20 124/56 95 05/06/19 04:00 98.0 F 135 H 17 109/67 97 05/06/19 03:21 90 17 107/59 98 05/06/19 02:50 145 H 18 132/85 98 05/06/19 02:00 140 H 108/77 05/06/19 01:00 126 H 19 153/105 05/06/19 00:30 131 H 162/97 92 L 05/06/19 00:07 120 H 21 162/97 94 L 05/05/19 23:31 98 F 126 H 20 179/122 93 L 05/05/19 23:30 115 H 25 H 179/122 Intake and Output 05/05/19 05/06/19 05/06/19 22:59 06:59 14:59 Intake Total 60 110 Balance 60 110 Intake: IV 10 10 Invasive Line 1 10 10 Intake, IV Titration 50 Amount Diltiazem 125 mg In 10 Sodium Chloride 0.9% 100 ml @ Per Protocol IV .Q0M [facility] Rx#:[id number] Sodium Chloride 0.9% 1, 40 000 ml @ 999 mls/hr IV . Q1H1M ONE Rx#:[id number] Oral 100 Other: Voiding Method Toilet # Voids 1 300 Weight 84.5 kg PHYSICAL EXAMINATION: GENERAL: 69-year-old female, currently crying, anxious, in no acute distress at the time of my examination HEENT: Head is atraumatic, normocephalic. Pupils equal, round. Sclera anicteri c. Conjunctiva are clear. Mucous membranes of the mouth are moist. Neck is supple. There is no elevated jugular venous pressure. No carotid bruit is heard. HEART EXAMINATION: HeartR S1 2 irregularly irregular a systolic murmur is heard CHEST EXAMINATION: Lungs reveal coarse rhonchi that clear with cough . No chest wall tenderness is noted on palpation or with deep breathing. ABDOMEN: Soft, obese, nontender. Bowel sounds are heard. No organomegaly noted. EXTREMITIES: 2+ peripheral pulses with trace evidence of peripheral edema and no calf tenderness noted. NEUROLOGIC patient is awake, alert and oriented 3 . . Results 05/05/19 23:50 05/05/19 23:50 Cardiac Enzymes 05/05/19 Range/Units 23:50 AST 44 H (14-36) U/L CBC 05/05/19 Range/Units 23:50 WBC 6.4 (3.8-10.6) k/uL RBC 3.75 L (3.80-5.40) m/uL Hgb 11.7 (11.4-16.0) gm/dL Hct 38.7 (34.0-46.0) % Plt Count 94 L (150-450) k/uL Comprehensive Metabolic Panel 05/05/19 Range/Units 23:50 Sodium 143 (137-145) mmol/L Potassium 4.2 (3.5-5.1) mmol/L Chloride 112 H (98-107) mmol/L Carbon Dioxide 25 (22-30) mmol/L BUN 25 H (7-17) mg/dL Creatinine 0.88 (0.52-1.04) mg/dL Glucose 92 (74-99) mg/dL Calcium 9.1 (8.4-10.2) mg/dL AST 44 H (14-36) U/L ALT 20 (9-52) U/L Alkaline Phosphatase 185 H (38-126) U/L Total Protein 6.8 (6.3-8.2) g/dL Albumin 3.4 L (3.5-5.0) g/dL Current Medications Generic Name Dose Route Start Last Admin Trade Name Freq PRN Reason Stop Dose Admin Hydrocodone Bitart/Acetaminophen 1 each 05/06/19 00:31 05/06/19 09:49 [place] 10 PO 1 each Q6H PRN Administration Pain Carbidopa/Levodopa 1 each 05/06/19 09:00 05/06/19 09:50 Sinemet 25-250 PO 1 each TID HI Administration Gabapentin 100 mg 05/06/19 09:00 05/06/19 09:50 Neurontin PO 100 mg TID HI Administration Diltiazem HCl 125 mg/ Sodium 125 mls @ 0 mls/hr 05/06/19 03:00 05/06/19 03:03 Chloride IV 5 mls/hr .Q0M HI 5 mls/hr Administration Protocol Per Protocol Lorazepam 1 mg 05/06/19 02:17 05/06/19 09:50 Ativan PO 1 mg Q6HR PRN Administration Anxiety Naloxone HCl 0.2 mg 05/06/19 01:33 Narcan IV Q2M PRN Opioid Reversal Ropinirole HCl 5 mg 05/06/19 00:45 05/06/19 09:50 Requip PO 5 mg QID HI Administration Intake and Output 05/05/19 05/06/19 05/06/19 22:59 06:59 14:59 Intake Total 60 110 Balance 60 110 Intake: IV 10 10 Invasive Line 1 10 10 Intake, IV Titration 50 Amount Diltiazem 125 mg In 10 Sodium Chloride 0.9% 100 ml @ Per Protocol IV .Q0M HI Rx#:[id number] Sodium Chloride 0.9% 1, 40 000 ml @ 999 mls/hr IV . Q1H1M ONE Rx#:[id number] Oral 100 Other: Voiding Method Toilet # Voids 1 300 Weight 84.5 kg 05/05/19 23:50 05/05/19 23:50 EKG Interpretations (text) EKG shows atrial fibrillation with a rapid ventricular response Assessment and Plan Plan: Assessment and plan #1 grief and sadness, patient lost her 2 days ago. She has not been e ating or drinking or taking any medications at home. #2 atrial fibrillation, paroxysmal with rapid ventricular response, patient apparently has a remote history of atrial fibrillation in the past #3 hypertension #4 hyperlipidemia #5 prior pacemaker implantation #6 sleep apnea, patient does not use her CPAP #7 COPD #8 chronic back pain with L1 compression fracture #9 renal cell carcinoma with prior nephrectomy #10 GERD #11 Parkinson's Plan We will obtain an echocardiogram with Doppler study as well as a TSH level. Obtain chest x-ray. We will start the patient on Eliquis and check for covera ge. We will also start the patient on beta vaibhav and discontinue the Cardizem drip. Initiate statin. Further recommendations to follow. DNP note has been reviewed, I agree with a documented findings and plan of care. Patient was seen and examined.
--- NOTE | 2019-05-06 11:13 | XR ---
EXAMINATION TYPE: XR chest 1V portable DATE OF EXAM: 05/06/2019 COMPARISON: Prior chest x-ray 04/22/2019 HISTORY: Shortness of breath TECHNIQUE: Single frontal view of the chest is obtained. FINDINGS: Technique is apical lordotic and rotated. The heart is enlarged. Pacemaker is stable. No e vident pneumothorax. Central vascularity appears somewhat prominently. Difficult to exclude basilar d ensity. There are overlying cardiac leads. The aorta is dense. IMPRESSION: Cardiomegaly, difficult to exclude pulmonary venous hypertension and early interstitial edema. Follow-up PA and lateral chest x-ray when stable for better evaluation as indicated.
[2019-05-06] MEDS ORDERED: MODAFINIL 100 MG TAB PO PRN (11:19)
[2019-05-06] MEDS ORDERED: NITROGLYCERIN SL TABS 0.4 MG TAB SUBLINGUAL PRN (11:19)
[2019-05-06] MEDS ORDERED: NYSTATIN 100,000 UNIT/GM POWD 15 GM TOPICAL PRN (11:19)
[2019-05-06] MEDS: METOPROLOL TARTRATE 25 MG TAB PO SCH ×2 (12:04→22:25)
[2019-05-06] MEDS: ALLOPURINOL 100 MG TAB PO SCH (12:04)
[2019-05-06] MEDS: APIXABAN 5 MG TAB PO SCH ×2 (12:05→22:25)
[2019-05-06] MEDS: ISOSORBIDE MONONITRATE ER 30 MG TAB.ER.24H PO SCH (12:05)
[2019-05-06] MEDS: ATORVASTATIN 40 MG TAB PO SCH (12:05)
[2019-05-06] MEDS: PANTOPRAZOLE 40 MG TABLET PO SCH (12:08)
--- NOTE | 2019-05-06 14:57 | P.CN ---
Psychiatric Consult - . Consult date: 05/06/19 Consult:: 05/06/19 14:55 Attempted to see patient to complete a psychiatric consultation, however the patient had not received her Provigil does have a diagnosis of narcolepsy and so was unable to stay awake for more than a minute without constantly being awakened. Patient was admitted after her suddenly 2 days ago and she stopped eating or sleeping was not taking her medication correctly per the record the patient has multiple complex medical problems, has no children and had been receiving help at home Thursday through Thursday 3 hours a day from the [facility]. Patient is currently taking Lexapro 20 mg. We will attempt to reevaluate patient once she has been on the Provigil consistently and is more able to participate in the evaluation.
[2019-05-06] MEDS: LACTATED RINGERS 1,000 ML IV SCH (19:02)
--- NOTE | 2019-05-06 19:57 | HP ---
HISTORY AND PHYSICAL DATE OF ADMISSION: May 06, 2019. PRESENTING COMPLAINT: Tired, not eating. HISTORY OF PRESENTING COMPLAINT: This is a 69-year-old patient who was here in the hospital on 04/22/2019. The patient follows with Visiting Physician, Dr. Esteban Harman. The patient's medical history includes chronic low back pain, has got a L1 compression fracture, has been followed by anesthesia service at [facility], including having epidural injections. Other chronic stable medical conditions include COPD, obstructive sleep apnea. Does not use a BiPAP, narcolepsy, chronic urinary bladder retention, stimulator in place, coronary artery disease with bypass, permanent pacemaker, on home oxygen, right nephrectomy for renal cell cancer, GERD. The patient's used to help her quite a bit. The patient's suddenly 2 or 3 days ago. Since then, the patient has not been eating and drinking, not sleeping, getting really exhausted and she was brought into the ER late last evening. Neighbors had heard her screaming and that is when EMS was called out. She was found slumped over a chair, unwilling and unable to get up. The patient has not been able to eat, though she did tell the ER that she was able to get up and ambulate throughout the day. She had to make a visit to the home for arrangements, but after returning home, she was fatigued and sat down in chair and could not get back up. She has even missed some of her medications. Difficult to obtain history as patient keeps dozing off. REVIEW OF SYSTEMS: CONSTITUTIONAL: Tired. HEENT: None. RESPIRATORY: None. GASTROINTESTINAL none. GENITOURINARY none. MUSCULOSKELETAL: Chronic back pain. DERMATOLOGICAL: Some chronic lower extremity skin changes. HEMATOLOGIC, LYMPHATIC none. PSYCHIATRY: Anxious, grieving. NEUROLOGICAL none. PAST MEDICAL HISTORY: Chronic low back pain, L1 compression fracture, COPD, obstructive sleep apnea, narcolepsy, chronic bladder dysfunction with stimulator in place, coronary artery disease with bypass, permanent pacemaker, chronic hypoxic and hypercapnic respiratory failure on oxygen, fibromyalgia, right renal cell cancer with right nephrectomy, GERD. PAST SURGICAL HISTORY: Appendectomy, coronary artery bypass, based coronary bypass, pacemaker, right nephrectomy, lumbar epidural injections last one on March 07 of this year, bladder stimulator, bilateral carpal tunnel release surgery in left hand, one vessel bypass in 2004, bilateral cataract surgery. SOCIAL HISTORY: Patient's 2 days ago rather suddenly. No smoking. No alcohol. FAMILY HISTORY: Diabetes and hypertension. Mother committed suicide. HOME MEDICATIONS: 1. Nystatin powder topical daily p.r.n. 2. Nitrostat 0.4 sublingual q.5 p.r.n. 3. Provigil 100 mg p.o. daily p.r.n. 4. [place] 10 1 tablet q.6 p.r.n. 5. Lexapro 20 mg q.h.s. 6. Sinemet 20/250 3-4 tablets p.o. daily p.r.n. 7. Allopurinol 100 mg p.o. every 30 days. 8. Requip 5 mg p.o. q.i.d. 9. Prilosec 40 mg p.o. daily. 10.Imdur ER 30 mg p.o. daily. 11.Neurontin 100 mg t.i.d. 12.Iron 325 p.o. daily. 13.Aspirin 81 mg daily. ALLERGIES: ADHESIVE, FISH, SULFUR. PHYSICAL EXAMINATION: VITAL SIGNS: Temperature 97.8, pulse 66, respiration 16, blood pressure 98/54, Pulse ox 98% on 3 L. GENERAL APPEARANCE: Well built, BMI 31.4. Lying in bed, lethargic but arousable. Dozes off again. EYES: Pupils are equal. Conjunctivae normal. HEENT: External appearance of nose and ears normal. Oral cavity unable to assess. NECK: JVD unable to assess. Mass not palpable. RESPIRATORY: Effort normal. LUNGS: Fair air entry. CARDIOVASCULAR: First and second sounds normal. No edema. ABDOMEN: Soft, nontender. Liver and spleen not palpable. LYMPHATICS: No lymph nodes palpable in the neck and axilla. PSYCHIATRY: Unable to really assess, but the patient is able answer questions. NEUROLOGICAL: Pupils equal. No facial asymmetry. Does move all 4 limbs. INVESTIGATIONS: White count 6.4, hemoglobin 11.7, platelets 94. Potassium 4.2, BUN 25, creatinine 0.88. UA is clear. Chest x-ray, cardiomegaly, no obvious infiltrates. EKG tracing personally reviewed by me shows atrial fibrillation with a rate of about 120s. ASSESSMENT: 1. Atrial fibrillation with rapid ventricular rate. 2. Chronic L1 compression fracture. 3. Chronic obstructive pulmonary disease in a nonsmoker. 4. Obstructive sleep apnea does not use CPAP machine. 5. Chronic narcolepsy. 6. Chronic bladder dysfunction with a stimulator in place. 7. Coronary artery disease, prior history of coronary artery bypass. 8. Permanent pacemaker. 9. Chronic hypercapnic respiratory failure on home oxygen. 10.Chronic fibromyalgia. 11.Renal cell carcinoma with right nephrectomy. 12.Gastroesophageal reflux disease. 13.Narcolepsy. 14.Sheer exhaustion in a patient who also has narcolepsy and missed her medications. Actually able to use her walker and go to the home to make arrangements for her . Came back and collapsed. Must be severely exhausted. PLAN: Home medications to continue. We will stop any Ativan. Hold off any sedating drugs for right now. We will give IV fluids. Psychiatry was consulted and so was PT/OT. We know that from the ER, the patient was able to actually walk and go to the home. Copy to visiting physician Dr. Esteban Harman. MMELYSEL / MINAN: [id number] /
[2019-05-06] MEDS: ESCITALOPRAM 20 MG TAB PO SCH (22:24)
[2019-05-07] MEDS: CARBIDOPA-LEVODOPA 25-250 MG 1 EACH TAB PO SCH ×4 (02:56→20:48)
[2019-05-07] MEDS: LACTATED RINGERS 1,000 ML IV SCH ×3 (02:56→17:51)
[2019-05-07] MEDS: ATORVASTATIN 40 MG TAB PO SCH (11:08)
[2019-05-07] MEDS: ALLOPURINOL 100 MG TAB PO SCH (11:08)
[2019-05-07] MEDS: ISOSORBIDE MONONITRATE ER 30 MG TAB.ER.24H PO SCH (11:08)
[2019-05-07] MEDS: GABAPENTIN 100 MG CAP PO SCH ×3 (11:09→20:48)
[2019-05-07] MEDS: APIXABAN 5 MG TAB PO SCH ×2 (11:09→20:48)
[2019-05-07] MEDS: METOPROLOL TARTRATE 25 MG TAB PO SCH ×2 (11:09→20:48)
[2019-05-07] MEDS: FERROUS SULFATE 325 MG TAB PO SCH (11:09)
[2019-05-07] MEDS: HYDROcodone/APAP 10-325MG 1 EACH TAB PO PRN ×2 (11:09→17:44)
[2019-05-07] MEDS: PANTOPRAZOLE 40 MG TABLET PO SCH (11:09)
--- NOTE | 2019-05-07 13:23 | P.PN ---
Subjective Progress Note Date: 05/07/19 This is a pleasant 69-year-old female who has a history of diabetes, hypertension, renal disease, hyperlipidemia, prior pacemaker implantation, history of coronary artery disease with prior bypass surgery, COPD, obstructive sleep apnea, no longer uses a BiPAP at home, history of nephrectomy for renal cell cancer, Parkinson's, who recently lost her 2 days ago, her neighbor heard her screaming and crying in her apartment, apparently the patient has been unable to sleep, has not eaten or taken any of her medications recently. She did have to go to the home to make some arrangements, was extremely fatigued, had sat down in a chair and could not get up. She was brought to the emergency room for further evaluation and treatment. Her EKG on arrival here showed atrial fibrillation with a rapid ventricular response, for this reason a cardiology consultation had been requested. Blood pressure 124/60, heart rate in the 120s this morning, 95% on 3 L of oxygen. White blood cell count 6.4, hemoglobin 11.7, platelet count 94. Sodium 143, potassium 4.2, BUN 25 creatinine 0.8. Magnesium 1.8. At the time of my examination this morning, patient appears very anxious, crying most of the time during our conversation. Denies any chest discomfort, no palpitations, no shortness of breath. 05/07/2019 Margie was seen and examined this morning, appears much more short of breath today, she was able to face time with the home to be able to see her prior to the cremation. This seemed to help with her mood a significant amount. Echocardiogram with Doppler study remains pending. Blood pressure 112/60 with a heart rate of 90, 94% on 3 L of oxygen. Objective - Vital Signs Vital signs: Vital Signs Temp 97.7 F 05/07/19 02:52 Pulse 90 05/07/19 02:52 Resp 20 05/07/19 02:52 BP 113/65 05/07/19 02:52 Pulse Ox 94 L 05/07/19 02:52 Intake & Output 05/06/19 05/07/19 05/07/19 18:59 06:59 18:59 Intake Total 590 240 Output Total 400 300 700 Balance 190 -300 -460 Weight 85.1 kg Intake: IV 30 Invasive Line 1 30 Oral 560 240 Output: Urine 400 300 700 Other: Voiding Method Bedpan Bedpan # Voids 300 1 1 - Exam PHYSICAL EXAMINATION: GENERAL: 69-year-old female, notably short of breath this morning HEENT: Head is atraumatic, normocephalic. Pupils equal, round. Sclera anicteric. Conjunctiva are clear. Mucous membranes of the mouth are moist. Neck is supple. There is no elevated jugular venous pressure. No carotid bruit is heard. HEART EXAMINATION: Heart S1 S2 irregularly irregular a systolic murmur is heard CHEST EXAMINATION: Lungs reveal coarse wheezing . No chest wall tenderness is noted on palpation or with deep breathing. ABDOMEN: Soft, obese, nontender. Bowel sounds are heard. No organomegaly noted. EXTREMITIES: 2+ peripheral pulses with trace evidence of peripheral edema and no calf tenderness noted. NEUROLOGIC patient is awake, alert and oriented 3 . . - Labs CBC & Chem 7: 05/05/19 23:50 05/05/19 23:50 Assessment and Plan Plan: Assessment and plan #1 grief and sadness, patient lost her 2 days ago. She has not been eating or drinking or taking any medications at home. #2 atrial fibrillation, paroxysmal with rapid ventricular response, patient apparently has a remote history of atrial fibrillation in the past #3 hypertension #4 hyperlipidemia #5 prior pacemaker implantation #6 sleep apnea, patient does not use her CPAP #7 COPD #8 chronic back pain with L1 compression fracture #9 renal cell carcinoma with prior nephrectomy #10 GERD #11 Parkinson's Plan Echocardiogram with Doppler study remains pending. We will check a BNP level give the patient some IV Lasix obtain chest x-ray today. DNP note has been reviewed, I agree with a documented findings and plan of care. Patient was seen and examined.
--- NOTE | 2019-05-07 14:03 | XR ---
EXAMINATION TYPE: XR chest 2V DATE OF EXAM: 05/07/2019 COMPARISON: Yesterday HISTORY: Follow-up heart failure TECHNIQUE: Frontal and lateral views of the chest are obtained. FINDINGS: There is pulmonary edema. The heart is enlarged. There is left axillary pacemaker with the lead tips in the right ventricle. There are chest leads. IMPRESSION: Congestive heart failure appears worse than yesterday.
[2019-05-07] MEDS: FUROSEMIDE 10 MG/ML 4 ML VIAL IV SCH ×2 (17:43→22:37)
[2019-05-07] MEDS: ESCITALOPRAM 20 MG TAB PO SCH (20:47)
[2019-05-08] MEDS: HYDROcodone/APAP 10-325MG 1 EACH TAB PO PRN ×3 (01:00→16:38)
[2019-05-08] MEDS: LACTATED RINGERS 1,000 ML IV SCH ×3 (05:03→18:22)
[2019-05-08] MEDS: METOPROLOL TARTRATE 25 MG TAB PO SCH ×2 (09:37→20:37)
[2019-05-08] MEDS: ALLOPURINOL 100 MG TAB PO SCH (09:38)
[2019-05-08] MEDS: CARBIDOPA-LEVODOPA 25-250 MG 1 EACH TAB PO SCH ×3 (09:38→20:37)
[2019-05-08] MEDS: GABAPENTIN 100 MG CAP PO SCH ×3 (09:38→20:37)
[2019-05-08] MEDS: ISOSORBIDE MONONITRATE ER 30 MG TAB.ER.24H PO SCH (09:38)
[2019-05-08] MEDS: FERROUS SULFATE 325 MG TAB PO SCH (09:38)
[2019-05-08] MEDS: PANTOPRAZOLE 40 MG TABLET PO SCH (09:39)
[2019-05-08] MEDS: APIXABAN 5 MG TAB PO SCH ×2 (09:39→20:36)
[2019-05-08] MEDS: ATORVASTATIN 40 MG TAB PO SCH (09:39)
[2019-05-08] MEDS: FUROSEMIDE 10 MG/ML 4 ML VIAL IV SCH ×3 (09:39→23:31)
--- NOTE | 2019-05-08 15:23 | P.PN ---
Subjective Progress Note Date: 05/08/19 This 69-year-old male with history of hypertension, diabetes, renal disease and also hyperlipidemia and also permanent pacemaker implantation was admitted to the hospital with altered mental status. Patient was found to be in atrial fibrillation with rapid ventricular response. A chest x-ray continues to show evidence of CHF. Patient also seemed to be disoriented. He appears to be slightly tachypnea. Because of continued shortness of breath and tachypnea and chest x-ray findings of CHF: Unknown. Increase the dose of the Lasix to every 8 hours. We'll follow BMP closely Objective - Vital Signs Vital signs: Vital Signs Temp 97.8 F 05/08/19 08:00 Pulse 70 05/08/19 12:00 Resp 19 05/08/19 12:00 BP 136/87 05/08/19 12:00 Pulse Ox 97 05/08/19 12:00 Intake & Output 05/07/19 05/08/19 05/08/19 18:59 06:59 18:59 Intake Total 480 480 Output Total 700 200 Balance -220 -200 480 Weight 88 kg Intake: Oral 480 480 Output: Urine 700 200 Other: Voiding Method Bedpan Bedpan # Voids 1 1 1 - Exam GENERAL EXAM: Patient is alert and seems to be disoriented HEENT: Normocephalic. Normal reaction of pupils, equal size, normal range of extraocular motion. No erythema or exudates in the throat. NECK: No masses, no nuchal rigidity. CHEST: No chest wall deformity. LUNGS: Equal air entry with no crackles or wheeze. HEART: S1 and S2 normal with no audible mumurs or gallops. Regular rhythm, femorals equal on both sides.. ABDOMEN: No hepatosplenomegaly, normal bowel sounds, no guarding or rigidity. SKIN: No rashes CENTRAL NERVOUS SYSTEM: No focal deficits. EXTREMITIES: Well edema - Labs CBC & Chem 7: 05/05/19 23:50 05/05/19 23:50 Assessment and Plan Plan: This patient is still has evidence of CHF on chest x-ray. There is some improvement in mental status. I'll continue current medical therapy. I'll increase the dose of the Lasix every 8 hours for next 24 hours. Follow BMP levels
--- NOTE | 2019-05-08 15:25 | P.CNNES ---
History of Present Illness Consult date: 05/08/19 Reason for Consult: Altered mental status, narcolepsy History of Present Illness: Patient is a 69-year-old female, who states that her , whom she has been for 55 years, 2 days ago, on Thursday. Patient has been grieved. Patient was brought to the hospital after neighbor heard her screaming in the apartment. When EMS arrived, they found her slumped over in the chair unwilling or unable to get up. Patient has not been able to sleep, unable to eat and has not taken any of her home medications since her . Patient also has history of narcolepsy, for which she used to see a neurologist Dr. Braswell at [facility]. Patient states that the neurologist stated that he cannot help her anymore. Patient currently takes Provigil. She also has restless leg syndrome. Patient's chest x-ray showed congestive heart failure, appears worse than yesterday. EKG showed demand pacemaker, interpret ation is based on intrinsic rhythm. Atrial fibrillation with rapid ventricular rate. Cardiology has been consulted. Patient denies any focal symptoms, denies headache. Review of Systems Arthritis, insomnia, restless legs. Denies any chest pain. She does have shortness of breath. Denies any diplopia or loss of vision, numbness tending focal weakness. Past Medical History Past Medical History: Atrial Fibrillation, Cancer, Chest Pain / Angina, Heart Failure, COPD, Fibromyalgia, GERD/Reflux, Myocardial Infarction (VA), Osteo arthritis (OA), Pneumonia, Sleep Apnea/CPAP/BIPAP Additional Past Medical History / Comment(s): Chronic low back pain which radiates down bilateral legs, lumbar disc disease, spondylosis, lumbar compression fracture, myofascial pain syndrome, generalized arthritis, migraine s, gout bilateral feet, osteoporosis, frequent falls, chronic urine retention/incontinence/has bladder stimulator, 1971 R renal cancer with nephrectomy, anemia, cardiac murmur, home oxygen at 2-3L/NC ATC, KOFFI but device is broken, vertigo, narcolepsy, IBS, Last Myocardial Infarction Date:: 2004 History of Any Multi-Drug Resistant Organisms: None Reported Past Surgical History: Appendectomy, Coronary Bypass/CABG, Heart Cat heterization, Orthopedic Surgery, Pacemaker Additional Past Surgical History / Comment(s): Rt nephrectomy, lumber epidural injections-last one 03/07/19, bladder stimulator, fabricio carpal tunnel releases, surgery on left hand, 1 vessel CABG 2004, fabricio cataracts with lens implants, colonoscopy. Past Anesthesia/Blood Transfusion Reactions: Previous Problems w/ Anesthesia Additional Past Anesthesia/Blood Transfusion Reaction / Comment(s): Pt has received blood in past without reaction. Type of Cardiac Device: Permanent Pacemaker Device Placement Date:: 2006 Past Psychological History: Anxiety Additional Psychological History / Comment(s): She no longer drives. She ambulates with a walker. 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 She has home oxygen and a nebulizer. Has used [facility] and help form [employer]. Smoking Status: Never smoker Past Alcohol Use History: None Reported Past Drug Use History: None Reported - Past Family History Mother Family Medical History: Diabetes Mellitus, Hypertension, Renal Disease Father Additional Family Medical History / Comment(s): Father comitted suicide. Family Family Medical History: Coronary Artery Disease (CAD) Medications and Allergies Home Medications Medication Instructions Recorded Confirmed Type Allopurinol [Zyloprim] 100 mg PO Q30D 02/03/19 05/05/19 History Aspirin [[place] Aspirin EC] 81 mg PO DAILY 02/03/19 05/05/19 History Carbidopa/Levodopa [Sinemet 25-250 3 - 4 tab PO DAILY PRN 02/03/19 05/05/19 History mg] Escitalopram [Lexapro] 20 mg PO HS 02/03/19 05/05/19 History Gabapentin [Neurontin] 100 mg PO TID 02/03/19 05/05/19 History Isosorbide Mononitrate ER [Imdur] 30 mg PO QAM 02/03/19 05/05/19 History Modafinil [Provigil] 100 mg PO DAILY PRN 02/03/19 05/05/19 History Ferrous Sulfate [Iron] 325 mg PO DAILY 03/01/19 05/05/19 History Nitroglycerin Sl Tabs [Nitrostat] 0.4 mg SUBLINGUAL Q5M PRN 03/01/19 05/05/19 History Nystatin Powder 1 applicate TOPICAL DAILY PRN 03/01/19 05/05/19 History Omeprazole [PriLOSEC] 40 mg PO QAM 03/01/19 05/05/19 History rOPINIRole HCL [Requip] 5 mg PO QID 03/01/19 05/05/19 History HYDROcodone/APAP 10-325MG [[place] 1 tab PO Q6H PRN 04/08/19 05/05/19 History 10-325] Allergies Allergy/AdvReac Type Severity Reaction Status Date / Time adhesive tape Allergy skin peels Verified 05/05/19 23:43 off Fish Containing Products Allergy Nausea Verified 05/05/19 23:43 [Fish] Sulfa (Sulfonamide Allergy Unknown Verified 05/05/19 23:43 Antibiotics) Physical Examination - Vital Signs Vital Signs: Vital Signs Temp Pulse Resp BP Pulse Ox 05/08/19 12:00 70 19 136/87 97 05/08/19 08:00 97.8 F 62 19 154/78 97 05/08/19 04:00 97.4 F L 68 18 135/80 96 05/08/19 00:00 97.0 F L 66 17 91/56 97 05/07/19 20:00 97.6 F 62 16 104/62 98 05/07/19 16:00 70 19 138/65 97 Intake and Output 05/07/19 05/08/19 05/08/19 22:59 06:59 14:59 Intake Total 240 480 Output Total 200 Balance 40 480 Intake: Oral 240 480 Output: Urine 200 Other: Voiding Method Bedpan Bedpan # Voids 3 1 1 Weight 88 kg On examination patient is an elderly female, in no distress, but she is grieving because of her . Patient cries intermittently. Patient states is the month of April, and the year is . She states is either the fifth of the sixth. She knows the name of the current president and that she is in [facility] and in the hospital the name she does not remember. Speech and language functions are normal. On cranial nerve examination pupils are round and reacting, visual adame are full, face is symmetric and tongue protrudes the midline. On muscle strength testing patient has significant arthritis of her left shoulder elbow and wrist, therefore appears to have some giveaway weakness. Her strength of the right arm is appears normal. Strength in the lower limbs appears normal to facet diminished and plantars are downgoing. Sensory touch is equal. No ataxia for [id number] testing. Tone and bulk of muscles normal. Results Patient's MCV is elevated 103.4. TSH is normal 3.43. AST mildly elevated 44, ALT 20. UA negative. Patient's immune fixation electrophoresis previously revealed IgG lambda paraprotein on 03/13/2019. Her free [place] and lambda light chain are both elevated. Quantitative immunoglobulins are normal. Patient's B12 is normal 3633 on 03/13/2019. Folate 8.1, ammonia 11. - Laboratory Findings CBC and BMP: 05/05/19 23:50 05/05/19 23:50 Abnormal Lab Findings: Abnormal Labs 05/05/19 05/05/19 23:50 23:50 RBC 3.75 L MCV 103.4 H MCHC 30.1 L RDW 15.6 H Plt Count 94 L Lymphocytes # 0.9 L Chloride 112 H BUN 25 H AST 44 H Alkaline Phosphatase 185 H Albumin 3.4 L Assessment and Plan Assessment: * Altered mental status, likely related to depression/acute grief due to her passing away 2 days ago. * History of narcolepsy. * Arthritis. * History of paraproteinemia with IgG lambda monoclonal gammopathy. Patient has positive M spike 0.81 g/dL. Patient follows up with hematology Dr. Aguilar. * Macrocytosis, unclear etiology. Patient had normal B12 folate levels. * History of L1 compression fracture Plan: * Patient needs to follow up with neurologist/sleep medicine specialist for man agement of her narcolepsy. * At present continue Provigil. * Patient's mental status change likely related to acute grief from very recent passing away of her . * No other neurological workup indicated. * Patient to follow up with operating theatre technician regarding paraproteinemia.
--- NOTE | 2019-05-08 17:10 | P.PN ---
Progress Note - Text Progress Note Date: 05/08/19 I came to follow-up with patient to do psychiatric consultation. Initial attempt by Dr. Shankar, psychiatric consultation was not able to be done at the time. Patient is found in her room with eyes closed. She does eventually open her eyes. She made reference to "leave my back alone." Also made a reference to "I'll smack you." No physical contact was made with the patient. She refuses psychiatric consultation at this time, initially did not appear agreeable to psychiatry returning to do this. By the end of the time with her she was more alert and continued to defer the consultation at this time but did seem perhaps more open to it being done at another date. She did make a refere nce that her had . Psychiatry can reattempt to perform psychiatric consultation.
[2019-05-08] MEDS: ESCITALOPRAM 20 MG TAB PO SCH (20:37)
--- NOTE | 2019-05-08 23:29 | PN ---
PROGRESS NOTE DATE OF SERVICE: May 08, 2019. PRESENTING COMPLAINT: Tired. INTERVAL HISTORY: The patient is more awake today, eating well. Psychiatrist had come to see the patient but she declined the interview. She wants to go home understanding there are some limitations about the same. Breathing is stable. REVIEW OF SYSTEMS: Done for constitutional, cardiovascular, GI, pulmonary and relevant findings as above. CURRENT MEDICATIONS: Reviewed that include Eliquis, IV Lasix. EXAMINATION: VITAL SIGNS: Temp 97.6, pulse 72, respiration 16, blood pressure 104/62, pulse ox 98% on 2 L. GENERAL APPEARANCE: Lying in bed, more awake, talking. EYES: Pupils equal. Conjunctivae normal. NECK: JVD unable to assess. Mass not palpable. RESPIRATORY: Effort normal. LUNGS: Decreased breath sounds. CARDIOVASCULAR: Heart sounds irregular. No edema. ABDOMEN: Soft, nontender. Liver and spleen not palpable. PSYCHIATRY: Awake, answering questions. INVESTIGATIONS: ProBNP yesterday was 1620. ASSESSMENT: 1. Persistent atrial fibrillation rapid ventricular rate on presentation. 2. Chronic L1 compression fracture. 3. Chronic obstructive pulmonary disease in a nonsmoker. 4. Obstructive sleep apnea does not use CPAP machine. 5. Chronic narcolepsy. 6. Chronic bladder dysfunction with stimulator in place. 7. Coronary artery disease with prior history of coronary artery bypass. 8. Permanent pacemaker. 9. Chronic hypercapnic respiratory failure on home oxygen. 10.Chronic fibromyalgia. 11.Renal cell carcinoma with right nephrectomy. 12.Gastroesophageal reflux disease. 13.Narcolepsy. 14.Possible fluid overload. PLAN: The patient is on IV Lasix. Will DC the IV fluids. Check labs in the morning. The patient is very keen to go home. call worker is looking into placement. Follow. MMODL / IJN: [id number] /
--- NOTE | 2019-05-08 23:45 | PN ---
PROGRESS NOTE DATE OF SERVICE: 05/07/2019. PRESENTING COMPLAINT: Tired. INTERVAL HISTORY: This patient was seen by me by me yesterday on 05/07/2019. The patient was admitted with atrial fibrillation, severe lethargy, not eating drinking, not taking her medications. I had 2 to 3 calls from the nurse in the morning regarding the patient being allowed to go for her 's . I told him that I am totally sensitive to the situation, but I do not feel safe at all for the patient to be able to go there as she was still very weak and felt to be high risk to be transferred. I also called the nurse in charge at [phone]. I did explain my dilemma and definitely did not feel the patient to be safe. The patient's family was upset about the same and I do understand the same, but in the patient's best interest decided against letting her go for the 's viewing. I did see the patient in the afternoon. REVIEW OF SYSTEMS: Done for constitutional, cardiovascular, GI, pulmonary and findings. The patient is more awake more awake than yesterday but still dozing off. Nurse was present when we talked and the patient again did doze off. CURRENT MEDICATIONS: Reviewed. EXAMINATION: Afebrile, pulse 72, respirations 19, blood pressure 138/65, pulse ox 97% on 3 L. GENERAL APPEARANCE: Lying in bed, lethargic but more arousable. EYES: Pupils equal. Conjunctivae normal. NECK: JVD unable to assess. Mass not palpable. Respiratory effort normal. LUNGS: Fair air entry. CARDIOVASCULAR: Heart sounds irregular no edema. ABDOMEN: Soft, nontender. Liver and spleen not palpable. PSYCHIATRY: The patient is able to answer questions a bit more, but still again dozes off. INVESTIGATIONS: No blood work from today. ASSESSMENT: 1. Persistent atrial fibrillation rapid ventricular rate on presentation. 2. Chronic L1 compression fracture. 3. Chronic obstructive pulmonary disease in a nonsmoker. 4. Obstructive sleep apnea does not use CPAP machine. 5. Chronic narcolepsy. 6. Chronic bladder dysfunction with stimulator in place. 7. Coronary artery disease, prior history of coronary bypass. 8. Permanent pacemaker. 9. Chronic hypercapnic respiratory failure on home oxygen. 10.Chronic fibromyalgia. 11.Renal cell carcinoma with right nephrectomy. 12.Gastroesophageal reflux disease. 13.Narcolepsy. 14.Severe exhaustion from grief response, not eating or drinking. PLAN: Continue current medication and treatment plan. I did go over with nurse with the patient and the patient did understand why I did allow her to go next, expressing the same. Continue current medication and treatment plan. Follow. JUAN / MINAN: [id number] /
[2019-05-09] MEDS: HYDROcodone/APAP 10-325MG 1 EACH TAB PO PRN ×3 (01:20→21:17)
[2019-05-09 06:30] LABS: Anisocytosis Slight; Basophils % (A) 0 %; Eosinophils # (A) 0.2 k/uL (0-0.7); Eosinophils % (A) 4 %; HCT 35.4 % (34.0-46.0); HGB 11.2 gm/dL (11.4-16.0); Lymphocytes # (A) 0.9 k/uL (1.0-4.8); Lymphocytes % (A) 17 %; MCH 32.7 pg (25.0-35.0); MCHC 31.7 g/dL (31.0-37.0); Macrocytosis Slight; Mean Platelet Volume 8.9; Monocytes # (A) 0.3 k/uL (0-1.0); Monocytes % (A) 6 %; Neutrophils # (A) 3.7 k/uL (1.3-7.7); Neutrophils % (A) 70 %; RBC 3.44 m/uL (3.80-5.40); RDW 16.3 % (11.5-15.5); WBC 5.3 k/uL (3.8-10.6)
[2019-05-09 06:31] LABS: Calcium 8.6 mg/dL (8.4-10.2); Platelet Count 82 k/uL (150-450); Potassium 4.1 mmol/L (3.5-5.1)
--- NOTE | 2019-05-09 09:01 | XR ---
EXAMINATION TYPE: XR chest 1V DATE OF EXAM: 05/09/2019 COMPARISON: 05/07/2019 HISTORY: Difficulty breathing with congestive heart failure TECHNIQUE: Single frontal view of the chest is obtained. FINDINGS: There is improved aeration of the lungs in comparison to the prior however there remains a retrocardiac consolidation and very minimal cephalization although this is exaggerated by low lung v olumes. Dual lead left-sided cardiac device and enlarged cardiomediastinal silhouette are again noted . High riding right humeral head is indicative of underlying chronic rotator cuff injury. IMPRESSION: Improved aeration of the lungs with only minimal cephalization and retrocardiac airspace disease remaining that could represent atelectasis, pneumonia or pulmonary edema.
[2019-05-09] MEDS: FUROSEMIDE 10 MG/ML 4 ML VIAL IV SCH ×3 (09:37→23:06)
[2019-05-09] MEDS: ISOSORBIDE MONONITRATE ER 30 MG TAB.ER.24H PO SCH (09:48)
[2019-05-09] MEDS: ATORVASTATIN 40 MG TAB PO SCH (09:48)
[2019-05-09] MEDS: METOPROLOL TARTRATE 25 MG TAB PO SCH ×2 (09:48→21:11)
[2019-05-09] MEDS: CARBIDOPA-LEVODOPA 25-250 MG 1 EACH TAB PO SCH ×3 (09:49→21:11)
[2019-05-09] MEDS: APIXABAN 5 MG TAB PO SCH ×2 (09:49→21:12)
[2019-05-09] MEDS: ALLOPURINOL 100 MG TAB PO SCH (09:49)
[2019-05-09] MEDS: GABAPENTIN 100 MG CAP PO SCH ×3 (09:49→21:11)
[2019-05-09] MEDS: PANTOPRAZOLE 40 MG TABLET PO SCH (09:49)
[2019-05-09] MEDS: FERROUS SULFATE 325 MG TAB PO SCH (09:49)
[2019-05-09 13:24] VITALS: RESP 18
--- NOTE | 2019-05-09 13:50 | P.PN ---
Subjective Progress Note Date: 05/09/19 This is a pleasant 69-year-old female who has a history of diabetes, hypertension, renal disease, hyperlipidemia, prior pacemaker implantation, history of coronary artery disease with prior bypass surgery, COPD, obstructive sleep apnea, no longer uses a BiPAP at home, history of nephrectomy for renal cell cancer, Parkinson's, who recently lost her 2 days ago, her neighbor heard her screaming and crying in her apartment, apparently the patient has been unable to sleep, has not eaten or taken any of her medications recently. She did have to go to the home to make some arrangements, was extremely fatigued, had sat down in a chair and could not get up. She was brought to the emergency room for further evaluation and treatment. Her EKG on arrival here showed atrial fibrillation with a rapid ventricular response, for this reason a cardiology consultation had been requested. Blood pressure 124/60, heart rate in the 120s this morning, 95% on 3 L of oxygen. White blood cell count 6.4, hemoglobin 11.7, platelet count 94. Sodium 143, potassium 4.2, BUN 25 creatinine 0.8. Magnesium 1.8. At the time of my examination this morning, patient appears very anxious, crying most of the time during our conversation. Denies any chest discomfort, no palpitations, no shortness of breath. 05/07/2019 Margie was seen and examined this morning, appears much more short of breath today, she was able to face time with the home to be able to see her prior to the cremation. This seemed to help with her mood a significant amount. Echocardiogram with Doppler study remains pending. Blood pressure 112/60 with a heart rate of 90, 94% on 3 L of oxygen. 05/09/2019 Patient was seen and examined this morning, she did have a chest x-ray performed that showed congestive heart failure and continues to be on IV Lasix.her breathing today overall has improved.blood pressure 112/60 with a heart rate in the 60s, 96% on 3. White blood cell count 5.3, hemoglobin 11.2, platelet count 82. Sodium 139, potassium 4.9, BUN 30 and creatinine 0.9. Objective - Vital Signs Vital signs: Vital Signs Temp 98.4 F 05/08/19 20:00 Pulse 61 06/10/19 12:00 Resp 18 05/09/19 12:00 BP 112/68 05/09/19 12:00 Pulse Ox 96 05/09/19 12:00 Intake & Output 05/08/19 05/09/19 05/09/19 18:59 06:59 18:59 Intake Total 480 720 360 Balance 480 720 360 Weight 94.5 kg Intake: Oral 480 720 360 Other: Voiding Method Diaper Bedpan Incontinent Diaper Incontinent # Voids 1 2 1 # Bowel Movements 1 - Exam PHYSICAL EXAMINATION: GENERAL: 69-year-old female, notably short of breath this morning HEENT: Head is atraumatic, normocephalic. Pupils equal, round. Sclera anicteric. Conjunctiva are clear. Mucous membranes of the mouth are moist. Neck is supple. There is no elevated jugular venous pressure. No carotid bruit is heard. HEART EXAMINATION: Heart S1 S2 irregularly irregular a systolic murmur is heard CHEST EXAMINATION: Lungs reveal coarse wheezing . No chest wall tenderness is noted on palpation or with deep breathing. ABDOMEN: Soft, obese, nontender. Bowel sounds are heard. No organomegaly noted. EXTREMITIES: 2+ peripheral pulses with trace evidence of peripheral edema and no calf tenderness noted. NEUROLOGIC patient is awake, alert and oriented 3 . . - Labs CBC & Chem 7: 05/09/19 06:02 05/09/19 06:02 Labs: Abnormal Lab Results - Last 24 Hours (Table) 05/09/19 05/09/19 Range/Units 06:02 06:02 RBC 3.44 L (3.80-5.40) m/uL Hgb 11.2 L (11.4-16.0) gm/dL MCV 103.0 H (80.0-100.0) fL RDW 16.3 H (11.5-15.5) % Plt Count 82 L (150-450) k/uL Lymphocytes # 0.9 L (1.0-4.8) k/uL Chloride 97 L (98-107) mmol/L Carbon Dioxide 39 H (22-30) mmol/L BUN 30 H (7-17) mg/dL Assessment and Plan Plan: Assessment and plan #1 grief and sadness, patient lost her 2 days ago. She has not been eating or drinking or taking any medications at home. #2 atrial fibrillation, paroxysmal with rapid ventricular response, patient apparently has a remote history of atrial fibrillation in the past #3 hypertension #4 hyperlipidemia #5 prior pacemaker implantation #6 sleep apnea, patient does not use her CPAP #7 COPD #8 chronic back pain with L1 compression fracture #9 renal cell carcinoma with prior nephrectomy #10 GERD #11 Parkinson's Plan recent echo shows normal left ventricular systolic function. We will continue current dose of IV Lasix.repeat lytes BUN and creatinine in the morning.heart rate remaining stable in the 60s to 70s. DNP note has been reviewed, I agree with a documented findings and plan of care. Patient was seen and examined.
--- NOTE | 2019-05-09 17:49 | P.PN ---
Subjective Progress Note Date: 05/09/19 Patient is alert and awake, still appears depressed. Patient wants to go home. Denies any focal symptoms. Denies headache. Objective - Vital Signs Vital signs: Vital Signs Temp 98.3 F 05/09/19 15:52 Pulse 61 05/09/19 15:52 Resp 18 05/09/19 15:52 BP 121/77 05/09/19 15:52 Pulse Ox 97 05/09/19 17:27 Intake & Output 05/08/19 05/09/19 05/09/19 18:59 06:59 18:59 Intake Total 480 720 480 Balance 480 720 480 Weight 94.5 kg Intake: Oral 480 720 480 Other: Voiding Method Diaper Bedpan Incontinent # Voids 1 2 1 # Bowel Movements 1 - Exam Patient is alert and awake. Speech and language functions are normal cranial nerves normal. Muscle strength is normal except left upper extremity which has significant arthritis. Sensations are equal. - Labs CBC & Chem 7: 05/09/19 06:02 05/09/19 06:02 Labs: Abnormal Lab Results - Last 24 Hours (Table) 05/09/19 05/09/19 Range/Units 06:02 06:02 RBC 3.44 L (3.80-5.40) m/uL Hgb 11.2 L (11.4-16.0) gm/dL MCV 103.0 H (80.0-100.0) fL RDW 16.3 H (11.5-15.5) % Plt Count 82 L (150-450) k/uL Lymphocytes # 0.9 L (1.0-4.8) k/uL Chloride 97 L (98-107) mmol/L Carbon Dioxide 39 H (22-30) mmol/L BUN 30 H (7-17) mg/dL Assessment and Plan Assessment: * Altered mental status, likely related to depression/acute grief due to her passing away 3 days ago. * History of narcolepsy. * Arthritis. * History of paraproteinemia with IgG lambda monoclonal gammopathy. Patient has positive M spike 0.81 g/dL. Patient follows up with hematology Dr. Aguilar. * Macrocytosis, unclear etiology. Patient had normal B12 folate levels. * History of L1 compression fracture Plan: * Patient needs to follow up with neurologist/sleep medicine specialist for management of her narcolepsy. * At present continue Provigil. * Patient's mental status change likely related to acute grief from very recent passing away of her . * No other neurological workup indicated. * Patient to follow up with securities trader regarding paraproteinemia. * Possible transfer to rehabilitation, although patient wants to go home.
--- NOTE | 2019-05-09 20:49 | PN ---
PROGRESS NOTE DATE OF SERVICE: April. PRESENTING COMPLAINT: Tired. INTERVAL HISTORY: Patient admitted initially for grieving, is being admitted for severe grief, flare-up of for narcolepsy, acute congestive heart failure on Lasix per Cardiology. Far more awake today. The patient is oxygenating between going home and going to rehab. She is worried about her dog at home. tax audit manager and social media content specialist is involved in the same. Psychiatry supposed to revisit the patient as the patient did not give much of an interview yesterday. Looks more comfortable. REVIEW OF SYSTEMS: Done for constitutional, cardiovascular, GI, pulmonary; relevant findings as above. CURRENT MEDICATIONS: Reviewed that include IV Lasix. PHYSICAL EXAMINATION: VITAL SIGNS: On examination: Temperature 98.3, pulse 61, respiratory 18, blood pressure 120/77, pulse ox 97% on 3L. GENERAL APPEARANCE: Lying in bed, awake, more awake, talking, lying flat, comfortable. EYES: Pupils equal. Conjunctivae normal. NECK: JVD unable to assess. Mass not palpable. RESPIRATORY effort normal. LUNGS: Decreased breath sounds. CARDIOVASCULAR: Heart sounds irregular. No edema. ABDOMEN: Soft, nontender. Liver and spleen not palpable. PSYCHIATRY: Awake, answering questions appropriate. INVESTIGATIONS: White count 5.3, hemoglobin 11.2, potassium 4.1. ASSESSMENT: 1. Persistent atrial fibrillation rapid ventricular rate on presentation. 2. Acute congestive heart failure exacerbation from diastolic dysfunction. EF 50 to 55% on IV Lasix. 3. Chronic L1 compression fracture. 4. Chronic obstructive pulmonary disease in a nonsmoker. 5. Obstructive sleep apnea does not use CPAP machine. 6. Chronic narcolepsy. 7. Chronic bladder dysfunction with stimulator in place. 8. Coronary artery disease with prior history of coronary artery bypass. 9. Permanent pacemaker. 10.Chronic hypercapnic respiratory failure on home oxygen. 11.Chronic fibromyalgia. 12.Renal cell carcinoma with right nephrectomy. 13.Gastroesophageal reflux disease. 14.Narcolepsy. PLAN: Patient remains on IV Lasix per Cardiology. Other medication and treatment plans to continue. Awaiting input from Psychiatry. The patient keeps going back and forth between going home and rehab. There are severe limitations to her going home. asbestos worker from outside the hospital had called the outpatient case manager saying that it was probably not safe for patient to go back home. The patient did tell me there is a niece coming from [place] of [place], but that will take at least 2 weeks to get here. MMLATOSHA / IJN: [id number] /
[2019-05-09] MEDS: ESCITALOPRAM 20 MG TAB PO SCH (21:11)
[2019-05-10 07:27] LABS: Calcium 8.6 mg/dL (8.4-10.2); Potassium 4.2 mmol/L (3.5-5.1)
[2019-05-10] MEDS: APIXABAN 5 MG TAB PO SCH ×2 (07:46→20:42)
[2019-05-10] MEDS: CARBIDOPA-LEVODOPA 25-250 MG 1 EACH TAB PO SCH ×3 (07:46→23:01)
[2019-05-10] MEDS: ALLOPURINOL 100 MG TAB PO SCH (07:46)
[2019-05-10] MEDS: PANTOPRAZOLE 40 MG TABLET PO SCH (07:46)
[2019-05-10] MEDS: ATORVASTATIN 40 MG TAB PO SCH (07:46)
[2019-05-10] MEDS: METOPROLOL TARTRATE 25 MG TAB PO SCH ×2 (07:46→20:42)
[2019-05-10] MEDS: FERROUS SULFATE 325 MG TAB PO SCH (07:47)
[2019-05-10] MEDS: ISOSORBIDE MONONITRATE ER 30 MG TAB.ER.24H PO SCH (07:47)
[2019-05-10] MEDS: GABAPENTIN 100 MG CAP PO SCH ×3 (07:47→20:42)
[2019-05-10] MEDS: FUROSEMIDE 10 MG/ML 4 ML VIAL IV SCH ×3 (07:47→23:01)
[2019-05-10] MEDS: HYDROcodone/APAP 10-325MG 1 EACH TAB PO PRN ×2 (09:01→23:07)
--- NOTE | 2019-05-10 12:54 | P.PN ---
Subjective Progress Note Date: 05/10/19 This is a pleasant 69-year-old female who has a history of diabetes, hypertension, renal disease, hyperlipidemia, prior pacemaker implantation, history of coronary artery disease with prior bypass surgery, COPD, obstructive sleep apnea, no longer uses a BiPAP at home, history of nephrectomy for renal cell cancer, Parkinson's, who recently lost her 2 days ago, her neighbor heard her screaming and crying in her apartment, apparently the patient has been unable to sleep, has not eaten or taken any of her medications recently. She did have to go to the home to make some arrangements, was extremely fatigued, had sat down in a chair and could not get up. She was brought to the emergency room for further evaluation and treatment. Her EKG on arrival here showed atrial fibrillation with a rapid ventricular response, for this reason a cardiology consultation had been requested. Blood pressure 124/60, heart rate in the 120s this morning, 95% on 3 L of oxygen. White blood cell count 6.4, hemoglobin 11.7, platelet count 94. Sodium 143, potassium 4.2, BUN 25 creatinine 0.8. Magnesium 1.8. At the time of my examination this morning, patient appears very anxious, crying most of the time during our conversation. Denies any chest discomfort, no palpitations, no shortness of breath. 05/07/2019 Margie was seen and examined this morning, appears much more short of breath today, she was able to face time with the home to be able to see her prior to the cremation. This seemed to help with her mood a significant amount. Echocardiogram with Doppler study remains pending. Blood pressure 112/60 with a heart rate of 90, 94% on 3 L of oxygen. 05/09/2019 Patient was seen and examined this morning, she did have a chest x-ray performed that showed congestive heart failure and continues to be on IV Lasix.her breathing today overall has improved.blood pressure 112/60 with a heart rate in the 60s, 96% on 3. White blood cell count 5.3, hemoglobin 11.2, platelet count 82. Sodium 139, potassium 4.9, BUN 30 and creatinine 0.9. 05/11/2019 Patient was seen and examined this morning, somewhat combative and argumentative this morning, confused. Blood pressure 124/70 with a heart rate in the 60s, 95% on 3 L of oxygen. Sodium 142, potassium 4.2, BUN 34 and creatinine 1.0. Repeat chest x-ray showed improved aeration of the lungs with only minimal cephalization and retrocardiac airspace disease remaining. We will discontinue the IV Lasix today and place patient on oral diuretics. Heart rate overall remained stable she continues to be in A. fib. Objective - Vital Signs Vital signs: Vital Signs Temp 97.5 F L 05/10/19 11:21 Pulse 66 05/10/19 11:21 Resp 18 05/10/19 11:21 BP 125/73 05/10/19 11:21 Pulse Ox 95 05/10/19 11:21 Intake & Output 05/09/19 05/10/19 05/10/19 18:59 06:59 18:59 Intake Total 720 480 Output Total 1000 1450 Balance -280 -1450 480 Weight 79 kg Intake: Oral 720 480 Output: Urine 1000 1450 Other: Voiding Method Bedpan Bedpan Bedpan # Voids 1 # Bowel Movements 1 - Exam PHYSICAL EXAMINATION: GENERAL: 69-year-old female, notably short of breath this morning HEENT: Head is atraumatic, normocephalic. Pupils equal, round. Sclera anicteric. Conjunctiva are clear. Mucous membranes of the mouth are moist. Neck is supple. There is no elevated jugular venous pressure. No carotid bruit is heard. HEART EXAMINATION: Heart S1 S2 irregularly irregular a systolic murmur is heard CHEST EXAMINATION: Lungs reveal improvement in air entry bilaterally. ABDOMEN: Soft, obese, nontender. Bowel sounds are heard. No organomegaly noted. EXTREMITIES: 2+ peripheral pulses with trace evidence of peripheral edema and no calf tenderness noted. NEUROLOGIC patient is awake, alert and oriented 3 . . - Labs CBC & Chem 7: 05/09/19 06:02 05/10/19 06:48 Labs: Abnormal Lab Results - Last 24 Hours (Table) 05/10/19 Range/Units 06:48 Chloride 96 L (98-107) mmol/L Carbon Dioxide 40 H (22-30) mmol/L BUN 34 H (7-17) mg/dL Assessment and Plan Plan: Assessment and plan #1 grief and sadness, patient lost her 2 days ago. She has not been eating or drinking or taking any medications at home. #2 atrial fibrillation, paroxysmal with rapid ventricular response, patient apparently has a remote history of atrial fibrillation in the past #3 hypertension #4 hyperlipidemia #5 prior pacemaker implantation #6 sleep apnea, patient does not use her CPAP #7 COPD #8 chronic back pain with L1 compression fracture #9 renal cell carcinoma with prior nephrectomy #10 GERD #11 Parkinson's Plan recent echo shows normal left ventricular systolic function. We will discontinue the IV Lasix, put the patient on Lasix 20 mg one tablet by mouth daily. Continue Eliquis and the rest of the patient's medications. We will follow this patient along with you now on an as-needed basis only, please of hesitate to call with any questions. DNP note has been reviewed, I agree with a documented findings and plan of care. Patient was seen and examined.
--- NOTE | 2019-05-10 13:32 | P.PN ---
Progress Note - Text Progress Note Date: 05/10/19 Interval History: Patient is a 69-year-old female who was seen again for psychiatric consultation as the patient had declined a consultation over the weekend. Patient was seen in her room per chart was reviewed and no family members were present. Patient was sitting in a recliner and eating her lunch. Patient states that she is now awake as she is on her medication for her narcolepsy. Patient and I discussed discharge plans which the patient states she will not go to a rehab facility and can go home. Patient stated to me that when she was at home in the past she did have assistance at home however this was for several hours a day Thursday through Thursday and her was doing all the cooking and cleaning and assisting her in the activities of daily living. When we discussed this further the patient states that she could have someone come in and shower her and then they could leave and she could take care of herself after that when I questioned the patient regarding how she would cook for herself, how she would go to the bathroom for herself she stated that she could get up and go to the bathroom using a walker however the patient has not been able to do this while in the hospital. Patient has required two-person assist at a minimum in the hospital and has been using a bed jerez in the hospital. Patient states that she doesn't want to go to rehab and wants to go home and that if she can go home for a week and doesn't do well she'll come back to the hospital and consider rehab. Patient states that she and her moved to this area in September 2018 from [place] in her living in an apartment and had been looking for subsidized senior housing. She states that she has had assistance at home ever since they moved here and her was doing all of the cooking and cleaning before his sudden 2 days prior to her admission. Patient has no children. Patient states she was placed on the Lexapro 20 mg a day by her webfocus developer for anxiety and states that he had been beneficial. She denies any psychiatric inpatient care and saw a psychiatrist many years ago for anxiety. She states that she has had no suicide attempts in the past and is not able to endorse any psychotic symptoms, depressive symptoms or manic symptoms. Patient states that the Lexapro was working well for her anxiety. Patient states that she is tearful and upset about the loss of her , stated that one of the reasons she needed to return home was to obtain insurance papers that were in the home. She was also concerned that someone would go in the home and steal checks as she states that this happened in the past when she and her lived in [place]. Mental Status: Appearance/Attitude: Patient is sitting in a reclining chair, makes intermittent eye contact and was cooperative Behavior: Patient did not exhibit any psychomotor agitation or retardation Speech/Language: Patient's speech was spontaneous of normal volume and rhythm and she was coherent Thought Process: Patient was goal-directed there is no evidence of loose association or flight of ideas Thought Content: Patient denied any auditory or visual hallucinations no delusions or paranoid ideation were elicited. Patient is understandably sad and grieving the loss of her who suddenly 2 days prior to her admission. Patient became quite tearful stating that she wanted to go home, was able to take care of herself and only needed someone to come in and help with her showering in the morning. Patient is eating and is more alert today and she is on her medications for her narcolepsy. Suicidal/Homicidal Ideation: Patient denied any current suicidal or homicidal ideation Sensorium/Cognition: Patient is alert and oriented to person, place and time and her recent and remote memory are grossly intact Mood/Affect: Patient's mood is sad and tearful at times and her affect is appropriate to her mood Insight/Judgment: Patient's insight and judgment are impaired as the patient feels that she is quite able to go home with only minimal assistance at home to help with showering and that she would be able to care for herself by herself after that. Patient states that she would be able to get herself out of bed and walk around the house using a walker. Assessment: Patient was admitted after her had suddenly 2 days prior to her admission, on admission the patient had not been eating and had not taken her meds for a day or so. She states that she went with someone to the home to arrange for her husbands and it took longer than expected and she missed her medications. Patient apparently had the [place] [facility] assisting her at home Thursday through Thursday for 3 hours a day and per the patient's own information her was doing all the cooking and cleaning. Patient states that she was able to ambulate around the apartment using a walker and when questioned as to how often this occurred she was unable to say at tell me patient since she has been in the hospital has required at a minimum a two- person assist to get out of bed, she states that she is only been out of bed on 2 occasions and both of these required assistance contrary to her saying that she would be able to get herself out of bed using her walker. Patient has been using a bed jerez while in the hospital. Patient states that her was doing all the cooking and cleaning and when I questioned her regarding how she would perform these activities she was unable to tell me Plan: Patient is not able to make an informed medical decision regarding the need for rehab after her discharge from the hospital as the patient is not able to perform any transfers without at least a two-person assist, she is not able to get herself out of bed using a walker or ambulate to the bathroom with a walker. Patient requires more than someone coming into his sister with a shower in the morning and leaving her for the rest of the day. Patient's was doing all of the cooking and cleaning in the apartment as well as all the shopping. Patient feels that she will be able to take care of herself and does not want to go to rehab and wants to return to her home however this is not a true assessment of her level of functioning. Patient was encouraged to consider rehab and she continued to decline going stating that she would be fine returning home and only needed someone to assist her with showering. Due to the patient's inability to make an informed medical decision I would recommend a guardian be appointed and the patient placed in rehab facility. Patient should continue on the Lexapro 20 mg a day as she feels it is been helpful for her anxiety. Should the patient in the future require grief counseling this should be provided as well. I spoke with social work regarding my recommendations, will sign off the case if there are any further questions or concerns please don't hesitate to contact me.
--- NOTE | 2019-05-10 13:41 | P.PN ---
Subjective Progress Note Date: 05/10/19 Patient is alert and awake, still appears depressed. Patient states "I'm going home today". Patient sitting in the recliner chair. Denies any focal symptoms. Denies headache. Objective - Vital Signs Vital signs: Vital Signs Temp 97.5 F L 05/10/19 11:21 Pulse 66 05/10/19 11:21 Resp 18 05/10/19 11:21 BP 125/73 05/10/19 11:21 Pulse Ox 95 05/10/19 11:21 Intake & Output 05/09/19 05/10/19 05/10/19 18:59 06:59 18:59 Intake Total 720 480 Output Total 1000 1450 Balance -280 -1450 480 Weight 79 kg Intake: Oral 720 480 Output: Urine 1000 1450 Other: Voiding Method Bedpan Bedpan Bedpan # Voids 1 # Bowel Movements 1 - Exam Patient is alert and awake. Speech and language functions are normal cranial nerves normal. Muscle strength is normal except left upper extremity which has significant arthritis. Sensations are equal. - Labs CBC & Chem 7: 05/09/19 06:02 05/10/19 06:48 Labs: Abnormal Lab Results - Last 24 Hours (Table) 05/10/19 Range/Units 06:48 Chloride 96 L (98-107) mmol/L Carbon Dioxide 40 H (22-30) mmol/L BUN 34 H (7-17) mg/dL Assessment and Plan Assessment: * Altered mental status, likely related to depression/acute grief due to her passing away 4 days ago. * History of narcolepsy. * Arthritis. * History of paraproteinemia with IgG lambda monoclonal gammopathy. Patient has positive M spike 0.81 g/dL. Patient follows up with hematology Dr. Aguilar. * Macrocytosis, unclear etiology. Patient had normal B12 folate levels. * History of L1 compression fracture Plan: * Patient needs to follow up with neurologist/sleep medicine specialist for management of her narcolepsy. * At present continue Provigil. * Patient's mental status change likely related to acute grief from very recent passing away of her . * No other neurological workup indicated. * Patient to follow up with aerospace assembler regarding paraproteinemia. * Clear for discharge from neurology point
[2019-05-10] MEDS: ESCITALOPRAM 20 MG TAB PO SCH (20:42)
--- NOTE | 2019-05-11 06:14 | PN ---
PROGRESS NOTE DATE OF SERVICE: 05/10/2019 PRESENTING COMPLAINT: Tired. INTERVAL HISTORY: Patient admitted with severe grief, having lost her , also narcolepsy, acute congestive heart failure for which patient is on IV Lasix per Cardiology. The patient continues to refuse rehab insisting on going home, because she has a cat and that her niece will be coming from out of the state. Social Work and pillowcase sewer involved in the same. REVIEW OF SYSTEMS: Done for constitutional, cardiovascular, GI, pulmonary; relevant findings as above. Patient is tolerating a diet. Awake. CURRENT MEDICATIONS: Reviewed that include IV Lasix. PHYSICAL EXAMINATION: VITAL SIGNS: Temperature 97.5, pulse 76, respiratory 18, blood pressure 125/73, pulse ox 95% on 3 L. GENERAL APPEARANCE: Lying in bed, awake, eating. EYES: Pupils equal. Conjunctivae normal. NECK: JVD unable to assess. RESPIRATORY effort normal. LUNGS: Decreased breath sounds. CARDIOVASCULAR: Heart sounds irregular. No edema. ABDOMEN: Soft, nontender. Liver and spleen not palpable. PSYCHIATRY: Awake, answering questions. INVESTIGATIONS: Potassium 4.2, BUN 34, creatinine 1.01. ASSESSMENT: 1. Persistent atrial fibrillation rapid ventricular rate on presentation. 2. Acute congestive heart failure exacerbation from diastolic dysfunction. Ejection fraction 50-55 percent. IV Lasix. 3. Chronic L1 compression fracture. 4. Chronic obstructive pulmonary disease in a nonsmoker. 5. Obstructive sleep apnea does not use CPAP machine. 6. Chronic narcolepsy. 7. Chronic bladder dysfunction with stimulator in place. 8. Coronary artery disease with prior history of coronary bypass. 9. Permanent pacemaker. 10.Chronic hypercapnic respiratory failure on home oxygen. 11.Chronic fibromyalgia. 12.Renal cell carcinoma with right nephrectomy. 13.Gastroesophageal reflux disease. 14.Narcolepsy. PLAN: I talked to the patient this morning. Patient insisting on going home. day care worker and pillowcase sewer both involved. The patient was seen by Psychiatry today who felt and recommended the patient should get a court-appointed guardian as she is not making reasonable decisions. day care worker from outside is saying that the patient's house is not in good condition for the patient to take care of herself. At this point, we will proceed with a court-appointed guardian that should happen this week. MMODL / IJN: [id number] /
[2019-05-11 06:36] LABS: Calcium 8.6 mg/dL (8.4-10.2); Potassium 3.7 mmol/L (3.5-5.1)
[2019-05-11] MEDS: PANTOPRAZOLE 40 MG TABLET PO SCH (07:49)
[2019-05-11] MEDS: CARBIDOPA-LEVODOPA 25-250 MG 1 EACH TAB PO SCH ×2 (07:49→16:33)
[2019-05-11] MEDS: FUROSEMIDE 10 MG/ML 4 ML VIAL IV SCH ×2 (07:49→16:29)
[2019-05-11] MEDS: METOPROLOL TARTRATE 25 MG TAB PO SCH (07:49)
[2019-05-11] MEDS: ISOSORBIDE MONONITRATE ER 30 MG TAB.ER.24H PO SCH (07:49)
[2019-05-11] MEDS: ATORVASTATIN 40 MG TAB PO SCH (07:50)
[2019-05-11] MEDS: APIXABAN 5 MG TAB PO SCH (07:50)
[2019-05-11] MEDS: FERROUS SULFATE 325 MG TAB PO SCH (07:50)
[2019-05-11] MEDS: ALLOPURINOL 100 MG TAB PO SCH (07:50)
[2019-05-11] MEDS: GABAPENTIN 100 MG CAP PO SCH ×2 (07:50→16:33)
[2019-05-11] MEDS: HYDROcodone/APAP 10-325MG 1 EACH TAB PO PRN (07:56)
[2019-05-11 12:35] VITALS: BP 105/58; PULSE 62; TEMP 98.2
--- NOTE | 2019-05-11 14:15 | P.PN ---
Progress Note - Text Progress Note Date: 05/11/19 Interval History: Patient is a 69-year-old female who is being seen for reevaluation at the request of social work as a patient apparently voiced her agreement to going to have was able to appropriately discuss this. I went to see the patient and she stated that she was agreeable to going to a rehab facility, stated that she is aware she can't return home and take care of herself and sees that she needs assistance. Patient states that at home she has a ramp, lift chair and a handicap toilet and has a shower seat that swings over the top. Patient was able to state that she sees that probably her niece who is interested in moving here to be aware of what kind of assistance the patient ne eds before she makes the decision to come here and assist the patient. Patient states that she has a nephew who is a credit administration officer who if she needs to will act as her power of consumer attorney and she was comfortable with that. Patient states that she wasn't in a good mood yesterday and that's why she did not agree to going to rehab. Mental Status: Appearance/Attitude: Patient is lying in a hospital bed in no acute distress and makes eye contact and is cooperative Behavior: Patient does not exhibit any psychomotor agitation or retardation. Speech/Language: Patient's speech is spontaneous of normal volume and rhythm and she is coherent Thought Process: Patient is goal-directed and there is no evidence of loose association or flight of ideas Thought Content: Patient denies any auditory or visual hallucinations no delusions or paranoid ideation were elicited. Patient was able to discuss today the fact that she understands the need for rehab, sees the need that she has for assistance that is greater than what had been provided while she was at home. Patient was able to realistically discuss a niece coming to live with her after rehab, that the niece probably requires education regarding how much assistance the patient may need. Patient did describe to me that she has a ramp, lift chair and a handicap toilet home she does not have a hospital bed and does have a shower seat that swings over the top entrance. Patient stated that she may need to consider moving to a different apartment with better access for her. Patient was accepting of going to rehab and states that she sees why she needs to go to rehab. Patient also discussed possibly appointing a nephew as her power of consumer attorney to assist her with legal and financial concerns. Suicidal/Homicidal Ideation: Patient denied any current suicidal or homicidal ideation Sensorium/Cognition: Patient is alert and oriented to person, place, and time and her recent and remote memory are grossly intact Mood/Affect: Patient's mood is pleasant she is no longer tearful and her affect is appropriate Insight/Judgment: Patient's insight and judgment have improved Assessment: Patient is accepting of a transfer to a rehab facility from the inpatient setting, she is able to discuss in a rational way why that's necessary and is accepting of the fact that she needs more assistance than what had been provided at home by the [facility]. Patient was also accepting of perhaps needing to have a power of consumer attorney to help her with financial and legal concerns that she has after the of her . Patient is not reporting any suicidal or depressive symptoms at this time and states that she was in a bad mood yesterday and why she was refusing rehab. Plan: Patient should continue on Lexapro after discharge to continue to treat her depression, patient no longer requires a petition for temporary guardian as the patient is able to today make an informed medical decision regarding the need for rehabilitation and is able to discuss this and very realistic terms the need for assistance that she has. Patient also discussed perhaps appointing her nephew as her power of consumer attorney to help her with financial and legal concerns.
--- NOTE | 2019-05-11 15:30 | P.PN ---
Subjective Progress Note Date: 05/11/19 Patient is alert and awake, appears more pleasant today. Patient is going to rehab facility today. Patient is laying comfortably in the bed. Denies any focal symptoms. Denies headache. Objective - Vital Signs Vital signs: Vital Signs Temp 98.2 F 05/11/19 12:32 Pulse 62 05/11/19 12:32 Resp 18 05/11/19 12:32 BP 105/58 05/11/19 12:32 Pulse Ox 95 05/11/19 12:32 Intake & Output 05/10/19 05/11/19 05/11/19 18:59 06:59 18:59 Intake Total 720 Output Total 600 Balance 120 Weight 70 kg Intake: Oral 720 Output: Urine 600 Other: Voiding Method Bedpan Diaper Diaper Incontinent Incontinent # Voids 1 - Exam Patient is alert and awake. Speech and language functions are normal cranial nerves normal. Muscle strength is normal except left upper extremity which has significant arthritis. Sensations are equal. Patient's left elbow appears very tender. Strength of the lower extremities appears normal. - Labs CBC & Chem 7: 05/09/19 06:02 05/11/19 06:03 Labs: Abnormal Lab Results - Last 24 Hours (Table) 05/11/19 Range/Units 06:03 Chloride 93 L (98-107) mmol/L Carbon Dioxide 41 H* (22-30) mmol/L BUN 42 H (7-17) mg/dL Creatinine 1.27 H (0.52-1.04) mg/dL Assessment and Plan Assessment: * Altered mental status, likely related to depression/acute grief due to her passing away 4 days ago. * History of narcolepsy. * Arthritis, particularly of the left elbow shoulder and wrist. * History of paraproteinemia with IgG lambda monoclonal gammopathy. Patient has positive M spike 0.81 g/dL. Patient follows up with hematology Dr. Aguilar. * Macrocytosis, unclear etiology. Patient had normal B12 folate levels. * History of L1 compression fracture Plan: * Patient needs to follow up with neurologist/sleep medicine specialist for management of her narcolepsy. * At present continue Provigil. * Patient's mental status change likely related to acute grief from very recent passing away of her . * No other neurological workup indicated. * Patient to follow up with hardware press operator regarding paraproteinemia. * Clear for discharge from neurology point
--- NOTE | 2019-05-11 15:59 | DS ---
DISCHARGE SUMMARY DATE OF ADMISSION: 05/05/2019 DATE OF DISCHARGE: 05/11/2019 FINAL DIAGNOSES: 1. Persistent atrial fibrillation with rapid ventricular rate on presentation. 2. Acute congestive heart failure exacerbation from diastolic dysfunction, ejection fraction 50% to 55%, POA. 3. Chronic L1 compression fracture. 4. Chronic obstructive pulmonary disease in a nonsmoker. 5. Obstructive sleep apnea. Does not use CPAP machine. 6. Chronic narcolepsy. 7. Chronic bladder dysfunction with stimulator in place. 8. Coronary artery disease with prior history of coronary artery bypass. 9. Permanent pacemaker. 10.Chronic hypercapnic respiratory failure, on home oxygen. 11.Chronic fibromyalgia. 12.Renal cell carcinoma with right nephrectomy. 13.Gastroesophageal reflux disease. 14.Narcolepsy. HOSPITAL COURSE: This patient presented after her . She was not able to cope with the grief, not able to get about. The patient says that at baseline she can walk a few steps with a walker. Her had been doing everything for her. The patient was found to be in atrial fibrillation with rapid ventricular rate and CHF, treated with IV Lasix. Medications were adjusted. The patient was also very sleepy in the beginning, felt to be a component of her narcolepsy. Currently patient is tolerating a diet. Initially she was not making proper decisions, insisting on going home even though she was not felt to be safe, but by this morning she does realize that she was not making reasonable decisions. The patient wants her nephew to be her legal guardian. She understands the need for help. CONSULTATIONS: 1. Dr. Fry from Cardiology. 2. Dr. Shankar from Psychiatry. 3. Dr. Fernandes from Neurology. PHYSICAL EXAMINATION: Temperature 98.2, pulse 52, respiration 18, blood pressure 105/58, pulse ox 95% on 3 L. LUNGS: Decreased breath sounds. CARDIOVASCULAR: Heart sounds irregular. PSYCHIATRY: Alert and oriented x3. INVESTIGATIONS: Potassium 3.7, BUN 42, creatinine 1.27. TSH normal. DISCHARGE MEDICATIONS: 1. Allopurinol 100 mg every 30 days. 2. Aspirin 81 mg a day. 3. Sinemet 25/250 three to four tablets daily p.r.n. 4. Lexapro 20 mg at bedtime. 5. Imdur ER 30 mg a day. 6. Provigil 100 mg daily. 7. Iron 325 p.o. daily. 8. Nitrostat 0.4 sublingually q.5 p.r.n. 9. Nystatin topically daily p.r.n. 10.Prilosec 40 mg p.o. daily. 11.Requip 5 mg p.o. q.i.d. 12.Eliquis 5 mg b.i.d. 13.Lipitor 40 mg p.o. daily. 14.Lopressor 25 mg p.o. b.i.d. 15.Lasix 40 mg p.o. daily. 16.Neurontin 100 mg p.o. t.i.d. 17.Mcgregor 10 one tablet q.6 p.r.n. CODE STATUS: FULL. Follow up with Dr. Fry in one week. Follow up Dr. Esteban Harman after discharge from rehab. Follow up with Dr. Weiss at [facility]. DISPOSITION: [facility]. Discussion and discharge planning more than 35 minutes. MMODL / IJN: [id number] /
== END 2019-05-11 15:45 | DRG 308 ==
LOC: EC 23:28 → 3SCARD 05-06 01:33 → OBSVTOIN 05-08 10:08
PROVIDERS: ADMIT Hospitalist; ATTEND Hospitalist
DX: I48.1 Persistent atrial fibrillation (principal); I50.33 Acute on chronic diastolic (congestive) heart failure; J96.12 Chronic respiratory failure with hypercapnia; J96.11 Chronic respiratory failure with hypoxia; M48.56XA Collapsed vertebra, not elsewhere classified, lumbar region, initial encounter for fracture; Z85.528 Personal history of other malignant neoplasm of kidney; Z90.5 Acquired absence of kidney; D75.89 Other specified diseases of blood and blood-forming organs; E11.9 Type 2 diabetes mellitus without complications; E78.5 Hyperlipidemia, unspecified; F32.9 Major depressive disorder, single episode, unspecified; F43.22 Adjustment disorder with anxiety; Z63.4 Disappearance and death of family member; G20 Parkinson's disease; G25.81 Restless legs syndrome; G47.33 Obstructive sleep apnea (adult) (pediatric); G47.419 Narcolepsy without cataplexy; G89.29 Other chronic pain; I11.0 Hypertensive heart disease with heart failure; I25.10 Atherosclerotic heart disease of native coronary artery without angina pectoris; I25.2 Old myocardial infarction; I48.0 Paroxysmal atrial fibrillation; J44.9 Chronic obstructive pulmonary disease, unspecified; K21.9 Gastro-esophageal reflux disease without esophagitis; K58.9 Irritable bowel syndrome, unspecified; M13.0 Polyarthritis, unspecified; M79.7 Fibromyalgia; M81.0 Age-related osteoporosis without current pathological fracture; M10.9 Gout, unspecified; G43.909 Migraine, unspecified, not intractable, without status migrainosus; Z79.82 Long term (current) use of aspirin; Z79.899 Other long term (current) drug therapy; Z82.49 Family history of ischemic heart disease and other diseases of the circulatory system; Z83.3 Family history of diabetes mellitus; T39.96XA Underdosing of unspecified nonopioid analgesic, antipyretic and antirheumatic, initial encounter; Z91.128 Patient's intentional underdosing of medication regimen for other reason; Z95.0 Presence of cardiac pacemaker; Z95.1 Presence of aortocoronary bypass graft; Z98.42 Cataract extraction status, left eye; Z98.41 Cataract extraction status, right eye; Z96.1 Presence of intraocular lens; Z99.81 Dependence on supplemental oxygen; Z81.8 Family history of other mental and behavioral disorders; Z84.1 Family history of disorders of kidney and ureter; D47.2 Monoclonal gammopathy; N31.9 Neuromuscular dysfunction of bladder, unspecified
CPT/HCPCS: 36415; 71045; 71046; 80048; 80053; 81003; 82550; 83735; 83880; 84443; 85025; 93005; 93308; 94760; 96361; 96365; 96375; 96376; 99284

== ENCOUNTER 2019-05-15 01:54 | Emergency (ER) | payer MEDICARE, OTHER ==
--- NOTE | 2019-05-15 02:05 | ED ---
General Adult HPI - General Chief complaint: Abdominal Pain Stated complaint: Anxiety Time Seen by Provider: 05/15/19 02:04 - History of Present Illness Initial comments: Krista is a 69-year-old female with history of chronic pain who presents the emergency department today via EMS from her [facility]. They were contacted because the patient was screaming out in pain. Upon their arrival the patient was lying in bed caking about screaming and crying. Patient was incomprehensible, they're were both to get the patient onto the gurney however she became caking fighting screaming out. She was given Versed and route to the hospital for anxiolysis. Upon arrival patient was resting comfortably and was cooperative, she complained of pain in her lower back to her legs. - Related Data Home Medications Medication Instructions Recorded Confirmed Allopurinol [Zyloprim] 100 mg PO Q30D 02/03/19 05/05/19 Aspirin [Andale Aspirin EC] 81 mg PO DAILY 02/03/19 05/05/19 Carbidopa/Levodopa [Sinemet 25-250 3 - 4 tab PO DAILY PRN 02/03/19 05/05/19 mg] Escitalopram [Lexapro] 20 mg PO HS 02/03/19 05/05/19 Isosorbide Mononitrate ER [Imdur] 30 mg PO QAM 02/03/19 05/05/19 Ferrous Sulfate [Iron] 325 mg PO DAILY 03/01/19 05/05/19 Nitroglycerin Sl Tabs [Nitrostat] 0.4 mg SUBLINGUAL Q5M PRN 03/01/19 05/05/19 Nystatin Powder 1 applicate TOPICAL DAILY PRN 03/01/19 05/05/19 Omeprazole [PriLOSEC] 40 mg PO QAM 03/01/19 05/05/19 rOPINIRole HCL [Requip] 5 mg PO QID 03/01/19 05/05/19 Previous Rx's Medication Instructions Recorded Apixaban [Eliquis] 5 mg PO BID #60 tab 05/10/19 Atorvastatin [Lipitor] 40 mg PO DAILY #30 tab 05/10/19 Metoprolol Tartrate [Lopressor] 25 mg PO BID #60 tab 05/10/19 Furosemide [Lasix] 40 mg PO DAILY #1 tablet 05/11/19 Gabapentin [Neurontin] 100 mg PO TID #9 capsule 05/11/19 HYDROcodone/APAP 10-325MG [[place] 1 tab PO Q6H PRN #12 tab 05/11/19 10-325] Modafinil [Provigil] 100 mg PO DAILY #28 tablet 05/11/19 Allergies Allergy/AdvReac Type Severity Reaction Status Date / Time adhesive tape Allergy skin peels Verified 05/15/19 02:08 off Fish Containing Products Allergy Nausea Verified 05/15/19 02:08 [Fish] Sulfa (Sulfonamide Allergy Unknown Verified 05/15/19 02:08 Antibiotics) Review of Systems ROS Statement: Those systems with pertinent positive or pertinent negative responses have been documented in the HPI. ROS Other: All systems not noted in ROS Statement are negative. Past Medical History Past Medical History: Atrial Fibrillation, Cancer, Chest Pain / Angina, Heart Failure, COPD, Fibromyalgia, GERD/Reflux, Myocardial Infarction (IA), Osteoarthritis (OA), Pneumonia, Sleep Apnea/CPAP/BIPAP Additional Past Medical History / Comment(s): Chronic low back pain which radiates down bilateral legs, lumbar disc disease, spondylosis, lumbar compression fracture, myofascial pain syndrome, generalized arthritis, migraines, gout bilateral feet, osteoporosis, frequent falls, chronic urine retention/incontinence/has bladder stimulator, 1972 R renal cancer with nephrectomy, anemia, cardiac murmur, home oxygen at 2-3L/NC ATC, KOFFI but device is broken, vertigo, narcolepsy, IBS, Last Myocardial Infarction Date:: 2004 History of Any Multi-Drug Resistant Organisms: None Reported Past Surgical History: Appendectomy, Coronary Bypass/CABG, Heart Catheterization, Orthopedic Surgery, Pacemaker Additional Past Surgical History / Comment(s): Rt nephrectomy, lumber epidural injections-last one 03/07/19, bladder stimulator, fabricio carpal tunnel releases, surgery on left hand, 1 vessel CABG 2004, fabricio cataracts with lens implants, colonoscopy. Past Anesthesia/Blood Transfusion Reactions: Previous Problems w/ Anesthesia Additional Past Anesthesia/Blood Transfusion Reaction / Comment(s): Pt has received blood in past without reaction. Type of Cardiac Device: Permanent Pacemaker Device Placement Date:: 2006 Past Psychological History: Anxiety Additional Psychological History / Comment(s): She no longer drives. She ambulates with a walker. 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 She has home oxygen and a nebulizer. Has used [facility] and help form [employer]. Smoking Status: Never smoker Past Alcohol Use History: None Reported Past Drug Use History: None Reported - Past Family History Mother Family Medical History: Diabetes Mellitus, Hypertension, Renal Disease Father Additional Family Medical History / Comment(s): Father comitted suicide. Family Family Medical History: Coronary Artery Disease (CAD) General Exam - General Exam Comments Initial Comments: Physical Exam GENERAL: Patient is well-developed and well-nourished. Patient is nontoxic and well-hydrated and is in no distress. HENT: Normocephalic, Atraumatic. EYES: PERRL, EOMI PULMONARY: Unlabored respirations. No audible rales rhonchi or wheezing was noted. CARDIOVASCULAR: There is a regular rate and rhythm without any murmurs gallops or rubs. ABDOMEN: reducible umbilical hernia No tenderness to palpation of the abdomen in all 4 quadrants NABS SKIN: Skin changes of bilateral lower extremities consistent with chronic venous stasis : Normal external genitalia NEUROLOGIC: Confused, slurred speech, baseline per patient MUSCULOSKELETAL: Normal extremities with adequate strength and full range of motion. No lower extremity swelling or edema. No calf tenderness. PSYCHIATRIC: Agitated Course Vital Signs 05/15/19 05/15/19 05/15/19 02:02 03:18 05:15 Temperature 97.6 F 97.2 F L Pulse Rate 66 72 70 Respiratory 20 19 26 H Rate Blood Pressure 119/75 98/86 127/91 O2 Sat by Pulse 94 L 93 L 91 L Oximetry Medical Decision Making - Medical Decision Making Patient was seen and evaluated history was obtained from the patient and review of medical record This 69-year-old female with chronic pain who is been evaluated in the ER multiple times for this. She is brought in this morning by EMS, she is complaining of pain she became agitated she was given Versed she's now, and cooperative. Continues to complain of pain in her back radiating down both legs this is unchanged with previous. Patient states she follows with pain management. Labs and imaging will be obtained due to concern for abdominal pain Labs revealed mild elevation of alk phos, low platelets. No other significant abnormalities were noted. KUB x-ray unremarkable. Patient complaining only of her back pain repeatedly asked to be taken to the pain clinic. Patient's abdomen remains soft and nontender. Patient is upset and yelling. She did have an episode of nonbloody vomiting. Zofran and Ativan ordered. At this time there is nothing acute in her workup and she will be discharged back to [facility] for further evaluation. - Lab Data Result diagrams: 05/15/19 02:20 05/15/19 02:20 Lab Results 05/15/19 05/15/19 05/15/19 Range/Units 02:20 02:20 02:20 WBC 7.6 (3.8-10.6) k/uL RBC 3.82 (3.80-5.40) m/uL Hgb 12.3 (11.4-16.0) gm/dL Hct 38.6 (34.0-46.0) % MCV 101.2 H (80.0-100.0) fL MCH 32.2 (25.0-35.0) pg MCHC 31.8 (31.0-37.0) g/dL RDW 15.3 (11.5-15.5) % Plt Count 88 L (150-450) k/uL Neutrophils % 69 % Lymphocytes % 16 % Monocytes % 8 % Eosinophils % 3 % Basophils % 0 % Neutrophils # 5.2 (1.3-7.7) k/uL Lymphocytes # 1.2 (1.0-4.8) k/uL Monocytes # 0.6 (0-1.0) k/uL Eosinophils # 0.2 (0-0.7) k/uL Basophils # 0.0 (0-0.2) k/uL Manual Slide Review Performed Poikilocytosis (manual Present Macrocytosis Slight Sodium 141 (137-145) mmol/L Potassium 3.9 (3.5-5.1) mmol/L Chloride 107 (98-107) mmol/L Carbon Dioxide 30 (22-30) mmol/L Anion Gap 4 mmol/L BUN 51 H (7-17) mg/dL Creatinine 0.97 (0.52-1.04) mg/dL Est GFR (CKD-EPI)AfAm 68 (>60 ml/min/1.73 sqM) Est GFR (CKD-EPI)NonAf 59 (>60 ml/min/1.73 sqM) Glucose 107 H (74-99) mg/dL Plasma Lactic Acid Zaid 1.1 (0.7-2.0) mmol/L Calcium 8.5 (8.4-10.2) mg/dL Total Bilirubin 1.0 (0.2-1.3) mg/dL AST 41 H (14-36) U/L ALT 7 L (9-52) U/L Alkaline Phosphatase 231 H (38-126) U/L Total Protein 6.3 (6.3-8.2) g/dL Albumin 3.1 L (3.5-5.0) g/dL Amylase <30 L (30-110) U/L Lipase 25 (23-300) U/L Urine Color Urine Appearance (Clear) Urine pH (5.0-8.0) Ur Specific [place] (1.001-1.035) Urine Protein (Negative) Urine Glucose (UA) (Negative) Urine Ketones (Negative) Urine Blood (Negative) Urine Nitrite (Negative) Urine Bilirubin (Negative) Urine Urobilinogen (<2.0) mg/dL Ur Leukocyte Esterase (Negative) 05/15/19 Range/Units 04:30 WBC (3.8-10.6) k/uL RBC (3.80-5.40) m/uL Hgb (11.4-16.0) gm/dL Hct (34.0-46.0) % MCV (80.0-100.0) fL MCH (25.0-35.0) pg MCHC (31.0-37.0) g/dL RDW (11.5-15.5) % Plt Count (150-450) k/uL Neutrophils % % Lymphocytes % % Monocytes % % Eosinophils % % Basophils % % Neutrophils # (1.3-7.7) k/uL Lymphocytes # (1.0-4.8) k/uL Monocytes # (0-1.0) k/uL Eosinophils # (0-0.7) k/uL Basophils # (0-0.2) k/uL Manual Slide Review Poikilocytosis (manual Macrocytosis Sodium (137-145) mmol/L Potassium (3.5-5.1) mmol/L Chloride (98-107) mmol/L Carbon Dioxide (22-30) mmol/L Anion Gap mmol/L BUN (7-17) mg/dL Creatinine (0.52-1.04) mg/dL Est GFR (CKD-EPI)AfAm (>60 ml/min/1.73 sqM) Est GFR (CKD-EPI)NonAf (>60 ml/min/1.73 sqM) Glucose (74-99) mg/dL Plasma Lactic Acid Zaid (0.7-2.0) mmol/L Calcium (8.4-10.2) mg/dL Total Bilirubin (0.2-1.3) mg/dL AST (14-36) U/L ALT (9-52) U/L Alkaline Phosphatase (38-126) U/L Total Protein (6.3-8.2) g/dL Albumin (3.5-5.0) g/dL Amylase (30-110) U/L Lipase (23-300) U/L Urine Color Yellow Urine Appearance Clear (Clear) Urine pH 5.0 (5.0-8.0) Ur Specific [place] 1.027 (1.001-1.035) Urine Protein Trace H (Negative) Urine Glucose (UA) Negative (Negative) Urine Ketones Trace H (Negative) Urine Blood Negative (Negative) Urine Nitrite Negative (Negative) Urine Bilirubin Negative (Negative) Urine Urobilinogen 2.0 (<2.0) mg/dL Ur Leukocyte Esterase Negative (Negative) Disposition Clinical Impression: Chronic pain, Debility, Low back pain Disposition: HOME SELF-CARE Condition: Stable Is patient prescribed a controlled substance at d/c from ED?: No Referrals: Jason Weiss DO [Primary Care Provider] - 1-2 days
[2019-05-15] MEDS ORDERED: SODIUM CHLORIDE 0.9% 1,000 ML IV STA (02:24)
[2019-05-15] MEDS ORDERED: LORazepam 2 MG/ML INJ IV STA ×2 (02:25→05:14)
[2019-05-15] MEDS ORDERED: MORPHINE SULFATE 4 MG/ML SYRINGE IVP STA (02:32)
[2019-05-15 03:16] LABS: Basophils % (A) 0 %; Eosinophils # (A) 0.2 k/uL (0-0.7); Eosinophils % (A) 3 %; HCT 38.6 % (34.0-46.0); HGB 12.3 gm/dL (11.4-16.0); Lymphocytes # (A) 1.2 k/uL (1.0-4.8); Lymphocytes % (A) 16 %; MCH 32.2 pg (25.0-35.0); MCHC 31.8 g/dL (31.0-37.0); MCV 101.2 fL (80.0-100.0); Macrocytosis Slight; Mean Platelet Volume 8.7; Monocytes # (A) 0.6 k/uL (0-1.0); Monocytes % (A) 8 %; Neutrophils # (A) 5.2 k/uL (1.3-7.7); Neutrophils % (A) 69 %; RBC 3.82 m/uL (3.80-5.40); RDW 15.3 % (11.5-15.5); WBC 7.6 k/uL (3.8-10.6)
[2019-05-15 03:28] LABS: ALT 7 U/L (9-52); AST 41 U/L (14-36); African American GFR (CKD) 68 (>60 ml/min/1.73 sqM); Albumin 3.1 g/dL (3.5-5.0); Alkaline Phosphatase 231 U/L (38-126); Amylase <30 U/L (30-110); Anion Gap 4 mmol/L; Blood Urea Nitrogen 51 mg/dL (7-17); Calcium 8.5 mg/dL (8.4-10.2); Carbon Dioxide 30 mmol/L (22-30); Chloride 107 mmol/L (98-107); Glucose 107 mg/dL (74-99); Lipase 25 U/L (23-300); Sodium 141 mmol/L (137-145); Total Protein 6.3 g/dL (6.3-8.2)
[2019-05-15 03:32] LABS: Platelet Count 88 k/uL (150-450); Poikilocytosis (M) Present
[2019-05-15 03:50] LABS: Potassium 3.9 mmol/L (3.5-5.1)
--- NOTE | 2019-05-15 03:51 | XR ---
EXAM: XR Abdomen, 2 Views CLINICAL HISTORY: Abdominal pain TECHNIQUE: Frontal view of the abdomen/pelvis with upright view of the abdomen. COMPARISON: No relevant prior studies available. FINDINGS: Intraperitoneal space: No free air. Gastrointestinal tract: Moderate amount stool throughout the colon. Nonobstructive bowel gas pattern. Bones/joints: Degenerative changes of the osseous structures. Vasculature: Punctate calcifications within the pelvis, likely phleboliths. Tubes, lines and devices: Spinal nerve stimulator device noted within the sacrum. IMPRESSION: No acute findings.
[2019-05-15 04:37] LABS: Appearance,Urine Clear (Clear); Bilirubin,Urine Negative (Negative); Blood,Urine Negative (Negative); Color,Urine Yellow; Glucose,Urine (UA) Negative (Negative); Ketones,Urine Trace (Negative); Leukocyte Esterase,Urine Negative (Negative); Nitrite,Urine Negative (Negative); Protein,Urine Trace (Negative); Specific Gravity,Urine 1.027 (1.001-1.035)
[2019-05-15] MEDS ORDERED: LORazepam 1 MG TAB PO STA (04:56)
[2019-05-15] MEDS ORDERED: ONDANSETRON 4 MG/2 ML VIAL IVP STA ×2 (05:14→06:13)
[2019-05-15 05:18] VITALS: BP 127/91; PULSE 70; RESP 26; TEMP 97.2
== END 2019-05-15 06:21 | disposition home or self-care (01) ==
LOC: EC 01:54
DX: M54.5 Low back pain (principal); G89.29 Other chronic pain; R53.81 Other malaise; R45.1 Restlessness and agitation; R74.8 Abnormal levels of other serum enzymes; D69.6 Thrombocytopenia, unspecified; K42.9 Umbilical hernia without obstruction or gangrene; R11.10 Vomiting, unspecified; I25.2 Old myocardial infarction; I48.91 Unspecified atrial fibrillation; G47.33 Obstructive sleep apnea (adult) (pediatric); F41.9 Anxiety disorder, unspecified; K21.9 Gastro-esophageal reflux disease without esophagitis; M10.9 Gout, unspecified; I50.9 Heart failure, unspecified; M81.0 Age-related osteoporosis without current pathological fracture; J44.9 Chronic obstructive pulmonary disease, unspecified; M19.90 Unspecified osteoarthritis, unspecified site; Z79.82 Long term (current) use of aspirin; Z79.899 Other long term (current) drug therapy; Z88.2 Allergy status to sulfonamides; Z91.013 Allergy to seafood; Z91.048 Other nonmedicinal substance allergy status; Z85.528 Personal history of other malignant neoplasm of kidney; Z95.1 Presence of aortocoronary bypass graft; Z90.5 Acquired absence of kidney; Z95.0 Presence of cardiac pacemaker
CPT/HCPCS: 36415; 80053; 82150; 83605; 83690; 85025; 81003; 74018; 99284; 96374; 96375 ×2; 96376 ×2; 96361; J2060; J2270; J2405

== ENCOUNTER 2019-05-15 15:27 | Inpatient (IN) | payer MEDICARE, OTHER ==
[2019-05-15] MEDS ORDERED: SODIUM CHLORIDE 0.9% 1,000 ML IV STA (15:50)
[2019-05-15] MEDS ORDERED: DIAZEPAM 5 MG/ML 2 ML INJ IVP STA ×2 (15:50→17:53)
--- NOTE | 2019-05-15 15:50 | ED ---
Back Pain HPI - General Chief Complaint: Back Pain/Injury Stated Complaint: Pain in lower back/hips Time Seen by Provider: 05/15/19 15:38 Source: patient, EMS, RN notes reviewed, old records reviewed - History of Present Illness Initial Comments: Patient is a 69-year-old female who presents emergency department today for evaluation for lower back pain rating on her legs. Patient states that she's been having chronic back pain for many months. She is seen in the emergency department earlier today at 6 AM. Patient was pain was managed at that time, and was discharged back to [facility]. I would brought the Patient back to emergency department if she is continuing to scream in pain. She reports that she is following her pain management doctor and she does take [place] for her chronic pain. She denies any falls or trauma. She denies any associated abdominal pain. - Related Data Home Medications Medication Instructions Recorded Confirmed Allopurinol [Zyloprim] 100 mg PO DAILY@0800 02/03/19 05/15/19 Aspirin [Pettus Aspirin EC] 81 mg PO DAILY@1700 02/03/19 05/15/19 Carbidopa/Levodopa [Sinemet 25-250 3 - 4 tab PO DAILY PRN 02/03/19 05/15/19 mg] Escitalopram [Lexapro] 20 mg PO HS@2100 02/03/19 05/15/19 Isosorbide Mononitrate ER [Imdur] 30 mg PO DAILY@0800 02/03/19 05/15/19 Ferrous Sulfate [Iron] 325 mg PO DAILY@1700 03/01/19 05/15/19 Nitroglycerin Sl Tabs [Nitrostat] 0.4 mg SUBLINGUAL Q5M PRN 03/01/19 05/15/19 Omeprazole [PriLOSEC] 40 mg PO DAILY@0600 03/01/19 05/15/19 rOPINIRole HCL [Requip] 5 mg PO QID 03/01/19 05/15/19 Apixaban [Eliquis] 5 mg PO BID@0800,1700 05/15/19 05/15/19 Atorvastatin [Lipitor] 40 mg PO HS@2100 05/15/19 05/15/19 Bisacodyl [Dulcolax] 10 mg RECTAL DAILY PRN 05/15/19 05/15/19 Gabapentin [Neurontin] 100 mg PO TID@0600,1400,2100 05/15/19 05/15/19 HYDROcodone/APAP 10-325MG [[place] 1 - 2 tab PO Q6H PRN 05/15/19 05/15/19 10-325] Magnesium Hydroxide [Milk of 7,200 mg PO ONCE PRN 05/15/19 05/15/19 Magnesia Concentrate] Metoprolol Tartrate [Lopressor] 25 mg PO BID@0800,1700 05/15/19 05/15/19 Modafinil [Provigil] 100 mg PO DAILY PRN 05/15/19 05/15/19 Na Phos,M-B/Na Phos,Di-Ba [Fleet 133 ml RECTAL DAILY PRN 05/15/19 05/15/19 Adult] Nystatin 500,000 unit PO QID 05/15/19 05/15/19 Nystatin [Nystop] 1 applic TOPICAL DAILY PRN 05/15/19 05/15/19 predniSONE See Taper PO DAILY@1200 05/15/19 05/15/19 Allergies Allergy/AdvReac Type Severity Reaction Status Date / Time adhesive tape Allergy skin peels Verified 05/15/19 17:47 off Fish Containing Products Allergy Nausea Verified 05/15/19 17:47 [Fish] Sulfa (Sulfonamide Allergy Unknown Verified 05/15/19 17:47 Antibiotics) Review of Systems ROS Statement: Those systems with pertinent positive or pertinent negative responses have been documented in the HPI. ROS Other: All systems not noted in ROS Statement are negative. Past Medical History Past Medical History: Atrial Fibrillation, Cancer, Chest Pain / Angina, Heart Failure, COPD, Fibromyalgia, GERD/Reflux, Myocardial Infarction (VT), Osteoarthritis (OA), Pneumonia, Sleep Apnea/CPAP/BIPAP Additional Past Medical History / Comment(s): Chronic low back pain which radiates down bilateral legs, lumbar disc disease, spondylosis, lumbar compression fracture, myofascial pain syndrome, generalized arthritis, migraines, gout bilateral feet, osteoporosis, frequent falls, chronic urine retention/incontinence/has bladder stimulator, 1972 R renal cancer with nephrectomy, anemia, cardiac murmur, home oxygen at 2-3L/NC ATC, KOFFI but device is broken, vertigo, narcolepsy, IBS, Last Myocardial Infarction Date:: 2004 History of Any Multi-Drug Resistant Organisms: None Reported Past Surgical History: Appendectomy, Coronary Bypass/CABG, Heart Catheterization, Orthopedic Surgery, Pacemaker Additional Past Surgical History / Comment(s): Rt nephrectomy, lumber epidural injections-last one 03/07/19, bladder stimulator, fabricio carpal tunnel releases, surgery on left hand, 1 vessel CABG 2004, fabricio cataracts with lens implants, colonoscopy. Past Anesthesia/Blood Transfusion Reactions: Previous Problems w/ Anesthesia Additional Past Anesthesia/Blood Transfusion Reaction / Comment(s): Pt has received blood in past without reaction. Type of Cardiac Device: Permanent Pacemaker Device Placement Date:: 2006 Past Psychological History: Anxiety Smoking Status: Never smoker Past Alcohol Use History: None Reported Past Drug Use History: None Reported - Past Family History Mother Family Medical History: Diabetes Mellitus, Hypertension, Renal Disease Father Additional Family Medical History / Comment(s): Father comitted suicide. Family Family Medical History: Coronary Artery Disease (CAD) General Exam - General Exam Comments Initial Comments: 69-year-old female. Alert and oriented 3. Patient shows moderate distress. Complaining of severe lower back pain. Writhing around in the bed. General appearance: alert, in no apparent distress Head exam: Present: atraumatic, normocephalic, normal inspection Eye exam: Present: normal appearance, PERRL, EOMI. Absent: scleral icterus, conjunctival injection, periorbital swelling ENT exam: Present: normal exam, mucous membranes moist Neck exam: Present: normal inspection Respiratory exam: Present: normal lung sounds bilaterally. Absent: respiratory distress, wheezes, rales, rhonchi, stridor Cardiovascular Exam: Present: regular rate, normal rhythm, normal heart sounds. Absent: systolic murmur, diastolic murmur, rubs, gallop, clicks GI/Abdominal exam: Present: soft, normal bowel sounds. Absent: distended, tenderness, guarding, rebound, rigid Extremities exam: Present: normal inspection, full ROM, normal capillary refill. Absent: tenderness, pedal edema, joint swelling, calf tenderness Back exam: Present: normal inspection, other (No bruising noted to the lumbar spine. No significant spinal tenderness noted. No sacral lesions or sores. ) Neurological exam: Present: alert, oriented X3, CN II-XII intact Psychiatric exam: Present: normal affect, normal mood Skin exam: Present: warm, dry, intact, normal color. Absent: rash Course Vital Signs 05/15/19 05/15/19 05/15/19 15:29 16:45 19:31 Temperature 96.8 F L Pulse Rate 71 78 65 Respiratory 20 20 20 Rate Blood Pressure 102/65 131/77 143/89 O2 Sat by Pulse 96 98 94 L Oximetry Medical Decision Making - Medical Decision Making Patient is a 69-year-old female presents emergency department today for concerns for worsening lower back pain. Patient was writhing around the bed and was seen in emergency room earlier today for similar complaint. She was sent back to [facility]. She cries with worsening pain, writhing around the bed. Patient labwork was reviewed today and unremarkable. Urinalysis negative for infection. CT abdomen and pelvis was completed. This shows no bowel obstructions or any other acute process. Patient states have some signs of altered mentation, and continued to writhing in the bed. She reports that she was recently admitted for this and unable to take care of herself after her this past week. I discussed case with Dr. Lujan n also examined the Patient. Patient will be admitted this time for a neuro consult, orthopedic consult as well as psychiatry consult. - Lab Data Result diagrams: 05/15/19 16:02 05/15/19 16:02 Lab Results 05/15/19 05/15/19 05/15/19 Range/Units 16:02 16:02 16:02 WBC 7.8 (3.8-10.6) k/uL RBC 3.58 L (3.80-5.40) m/uL Hgb 11.7 (11.4-16.0) gm/dL Hct 37.0 (34.0-46.0) % MCV 103.1 H (80.0-100.0) fL MCH 32.6 (25.0-35.0) pg MCHC 31.6 (31.0-37.0) g/dL RDW 15.2 (11.5-15.5) % Plt Count 86 L (150-450) k/uL Neutrophils % 83 % Lymphocytes % 9 % Monocytes % 4 % Eosinophils % 2 % Basophils % 0 % Neutrophils # 6.5 (1.3-7.7) k/uL Lymphocytes # 0.7 L (1.0-4.8) k/uL Monocytes # 0.3 (0-1.0) k/uL Eosinophils # 0.2 (0-0.7) k/uL Basophils # 0.0 (0-0.2) k/uL Manual Slide Review Performed Hypochromasia Slight Macrocytosis Slight Sodium 142 (137-145) mmol/L Potassium 4.4 (3.5-5.1) mmol/L Chloride 108 H (98-107) mmol/L Carbon Dioxide 31 H (22-30) mmol/L Anion Gap 3 mmol/L BUN 47 H (7-17) mg/dL Creatinine 0.98 (0.52-1.04) mg/dL Est GFR (CKD-EPI)AfAm 67 (>60 ml/min/1.73 sqM) Est GFR (CKD-EPI)NonAf 58 (>60 ml/min/1.73 sqM) Glucose 129 H (74-99) mg/dL Calcium 8.4 (8.4-10.2) mg/dL Total Bilirubin 1.0 (0.2-1.3) mg/dL AST 34 (14-36) U/L ALT 8 L (9-52) U/L Alkaline Phosphatase 190 H (38-126) U/L Troponin I <0.012 (0.000-0.034) ng/mL Total Protein 5.9 L (6.3-8.2) g/dL Albumin 2.9 L (3.5-5.0) g/dL Urine Color Urine Appearance (Clear) Urine pH (5.0-8.0) Ur Specific Devol (1.001-1.035) Urine Protein (Negative) Urine Glucose (UA) (Negative) Urine Ketones (Negative) Urine Blood (Negative) Urine Nitrite (Negative) Urine Bilirubin (Negative) Urine Urobilinogen (<2.0) mg/dL Ur Leukocyte Esterase (Negative) Urine RBC (0-5) /hpf Urine WBC (0-5) /hpf Urine Mucus (None) /hpf Urine Opiates Screen (NotDetected) Ur Oxycodone Screen (NotDetected) Urine Methadone Screen (NotDetected) Ur Propoxyphene Screen (NotDetected) Ur Barbiturates Screen (NotDetected) U Tricyclic Antidepress (NotDetected) Ur Phencyclidine Scrn (NotDetected) Ur Amphetamines Screen (NotDetected) U Methamphetamines Scrn (NotDetected) U Benzodiazepines Scrn (NotDetected) Urine Cocaine Screen (NotDetected) U Marijuana (THC) Screen (NotDetected) 05/15/19 05/15/19 Range/Units 16:10 16:10 WBC (3.8-10.6) k/uL RBC (3.80-5.40) m/uL Hgb (11.4-16.0) gm/dL Hct (34.0-46.0) % MCV (80.0-100.0) fL MCH (25.0-35.0) pg MCHC (31.0-37.0) g/dL RDW (11.5-15.5) % Plt Count (150-450) k/uL Neutrophils % % Lymphocytes % % Monocytes % % Eosinophils % % Basophils % % Neutrophils # (1.3-7.7) k/uL Lymphocytes # (1.0-4.8) k/uL Monocytes # (0-1.0) k/uL Eosinophils # (0-0.7) k/uL Basophils # (0-0.2) k/uL Manual Slide Review Hypochromasia Macrocytosis Sodium (137-145) mmol/L Potassium (3.5-5.1) mmol/L Chloride (98-107) mmol/L Carbon Dioxide (22-30) mmol/L Anion Gap mmol/L BUN (7-17) mg/dL Creatinine (0.52-1.04) mg/dL Est GFR (CKD-EPI)AfAm (>60 ml/min/1.73 sqM) Est GFR (CKD-EPI)NonAf (>60 ml/min/1.73 sqM) Glucose (74-99) mg/dL Calcium (8.4-10.2) mg/dL Total Bilirubin (0.2-1.3) mg/dL AST (14-36) U/L ALT (9-52) U/L Alkaline Phosphatase (38-126) U/L Troponin I (0.000-0.034) ng/mL Total Protein (6.3-8.2) g/dL Albumin (3.5-5.0) g/dL Urine Color Yellow Urine Appearance Clear (Clear) Urine pH 6.0 (5.0-8.0) Ur Specific Devol 1.029 (1.001-1.035) Urine Protein Trace H (Negative) Urine Glucose (UA) Negative (Negative) Urine Ketones Trace H (Negative) Urine Blood Small H (Negative) Urine Nitrite Negative (Negative) Urine Bilirubin Negative (Negative) Urine Urobilinogen 2.0 (<2.0) mg/dL Ur Leukocyte Esterase Small H (Negative) Urine RBC 17 H (0-5) /hpf Urine WBC 5 (0-5) /hpf Urine Mucus Rare H (None) /hpf Urine Opiates Screen Detected H (NotDetected) Ur Oxycodone Screen Not Detected (NotDetected) Urine Methadone Screen Not Detected (NotDetected) Ur Propoxyphene Screen Not Detected (NotDetected) Ur Barbiturates Screen Not Detected (NotDetected) U Tricyclic Antidepress Detected H (NotDetected) Ur Phencyclidine Scrn Not Detected (NotDetected) Ur Amphetamines Screen Not Detected (NotDetected) U Methamphetamines Scrn Not Detected (NotDetected) U Benzodiazepines Scrn Detected H (NotDetected) Urine Cocaine Screen Not Detected (NotDetected) U Marijuana (THC) Screen Not Detected (NotDetected) 05/15/19 18:18 EKG shows atrial paced rhythm with prolonged AV conduction. T-wave abnormality considering to ischemia. Prolonged QT. Ventricular rate 75 beats were minute. Was 226 ms. QS duration 10 for psych. QTQTC's 44/6 most seconds. - Radiology Data Radiology results: report reviewed Impression should state no bowel obstruction. No acute findings per patient's clinical symptoms of severe pain. Possible cirrhosis. Correlate clinically. Disposition Clinical Impression: Intractable low back pain, Lumbar degenerative disc disease, Debility, Agitation, Delirium Disposition: ADMITTED IP TO THIS [facility] Condition: Stable Is patient prescribed a controlled substance at d/c from ED?: No Referrals: Jason Weiss DO [Primary Care Provider] - 1-2 days Time of Disposition: 20:06
[2019-05-15] MEDS ORDERED: methylPREDNISolone SOD SUCCI 125 MG/2 ML VIAL IV STA (15:51)
[2019-05-15] MEDS ORDERED: MORPHINE SULFATE 4 MG/ML SYRINGE IVP STA (15:51)
[2019-05-15 16:29] LABS: Albumin 2.9 g/dL (3.5-5.0); Calcium 8.4 mg/dL (8.4-10.2); Potassium 4.4 mmol/L (3.5-5.1); Total Protein 5.9 g/dL (6.3-8.2)
[2019-05-15 16:29] LABS: Appearance,Urine Clear (Clear); Bilirubin,Urine Negative (Negative); Blood,Urine Small (Negative); Color,Urine Yellow; Glucose,Urine (UA) Negative (Negative); Ketones,Urine Trace (Negative); Leukocyte Esterase,Urine Small (Negative); Mucus,Urine Rare /hpf; Nitrite,Urine Negative (Negative); Protein,Urine Trace (Negative); RBC,Urine 17 /hpf (0-5); Specific Gravity,Urine 1.029 (1.001-1.035)
[2019-05-15 16:31] LABS: Basophils % (A) 0 %; Eosinophils # (A) 0.2 k/uL (0-0.7); Eosinophils % (A) 2 %; HGB 11.7 gm/dL (11.4-16.0); Hypochromasia Slight; Lymphocytes # (A) 0.7 k/uL (1.0-4.8); Lymphocytes % (A) 9 %; MCH 32.6 pg (25.0-35.0); MCHC 31.6 g/dL (31.0-37.0); MCV 103.1 fL (80.0-100.0); Macrocytosis Slight; Mean Platelet Volume 8.5; Monocytes # (A) 0.3 k/uL (0-1.0); Monocytes % (A) 4 %; Neutrophils # (A) 6.5 k/uL (1.3-7.7); Neutrophils % (A) 83 %; RBC 3.58 m/uL (3.80-5.40); RDW 15.2 % (11.5-15.5); WBC 7.8 k/uL (3.8-10.6)
[2019-05-15 16:32] LABS: Platelet Count 86 k/uL (150-450)
[2019-05-15] MEDS: MORPHINE SULFATE 4 MG/ML SYRINGE IVP STA ×2 (17:49→18:05)
[2019-05-15 18:10] LABS: Amphetamine Screen,Urine Not Detected (NotDetected); Barbiturate Screen,Urine Not Detected (NotDetected); Benzodiazepines Screen,Urine Detected (NotDetected); Cocaine Screen,Urine Not Detected (NotDetected); Methadone Screen, Urine Not Detected (NotDetected); Opiate Screen,Urine Detected (NotDetected); Oxycodone Screen, Urine Not Detected (NotDetected); Phencyclidine Screen,Urine Not Detected (NotDetected); Tricyclic Antidepressant,Urine Detected (NotDetected); Urn Cannabinoid Scrn Not Detected (NotDetected)
--- NOTE | 2019-05-15 19:18 | CT ---
EXAMINATION TYPE: CT abdomen pelvis w con DATE OF EXAM: 05/15/2019 HISTORY: Poor historian, intractable back and abdominal pain. CT DLP: 2065.8mGycm Automated Exposure Control for Dose Reduction was Utilized. CONTRAST: CT scan of the abdomen and pelvis is performed without oral but with IV Contrast, patient injected wi th 80 mL of Isovue 300. COMPARISON: CT spine March 11, 2019. FINDINGS: LUNG BASES: Cardiomegaly is present with partial visualization of pacemaker lead there is patchy biba silar atelectasis and/or infiltrate. LIVER/GB: Liver is heterogeneously hypodense with slightly lobulated contour. Underlying cirrhosis no t excluded. Correlate clinically. PANCREAS: Moderate diffuse fat replaced atrophy most prominent in the head is noted. SPLEEN: Spleen is mildly enlarged at 13.7 cm axial image 20. ADRENALS: No significant abnormality is seen. 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 BOWEL: Evaluation of bowel slightly suboptimal secondary to lack of enteric contrast. There is no edita picious small or large bowel dilatation. Sigmoid colonic diverticulosis is present. UTERUS/ADNEXA: Anteverted uterus. Scattered pelvic phleboliths are seen. LYMPH NODES: No greater than 1cm abdominal or pelvic lymph nodes are appreciated. OSSEOUS STRUCTURES: [id number] multilevel spurring throughout the thoracolumbar spine is pres ent. There is moderate to advanced disc space narrowing L3-L4 and L4-L5 levels redemonstrated. There is stimulator device terminating in the left posterior perisacral tissue. OTHER: There is large periumbilical hernia containing fat and tiny mesenteric vessels axial image 57 . IMPRESSION: Bowel obstruction. No significant acute finding is seen to account for patient's clinical symptoms of severe pain. Possible cirrhosis, correlate clinically.
[2019-05-15] MEDS ORDERED: MORPHINE SULFATE 4 MG/ML SYRINGE IV PRN (20:06)
[2019-05-15] MEDS ORDERED: NALOXONE 0.4 MG/ML 1 ML VIAL IV PRN (20:06)
[2019-05-15] MEDS ORDERED: IBUPROFEN 400 MG TAB PO PRN (20:06)
[2019-05-15] MEDS ORDERED: LORazepam 2 MG/ML INJ IV STA (20:13)
[2019-05-16] MEDS: SODIUM CHLORIDE 0.9% 1,000 ML IV SCH ×2 (03:26→07:41)
[2019-05-16 07:04] LABS: Glucose,Whole Blood 114 mg/dL (75-99)
[2019-05-16] MEDS: LORazepam 2 MG/ML INJ IV PRN ×2 (07:39→22:08)
[2019-05-16] MEDS ORDERED: PANTOPRAZOLE 40 MG/10 ML VIAL IV SCH (09:00)
[2019-05-16] MEDS: KETOROLAC 30 MG/ML 1 ML VIAL IVP PRN (09:26)
[2019-05-16 11:39] LABS: Glucose,Whole Blood 100 mg/dL (75-99)
--- NOTE | 2019-05-16 12:36 | XR ---
EXAMINATION TYPE: XR chest 1V portable DATE OF EXAM: 05/16/2019 Comparison: 05/09/2019 Clinical History: 69-year-old female difficulty breathing, shortness of breath r/o Pneumonia Findings: Lordotic positioning and low lung volumes. Heart mildly enlarged. Mild interstitial prominence. Left anterior chest wall pacemaker generator with right atrial and right ventricular leads. Retrocardiac o pacity. Impression: 1. Residual mild interstitial prominence could represent bronchitis, asthma, or mild pulmonary vascul ar congestion. 2. Persistent retrocardiac atelectasis or infiltrate.
--- NOTE | 2019-05-16 12:40 | P.CNOR ---
History of Present Illness - [facility] Consult date: 05/16/19 Requesting physician: Erum Cote Consult reason: low back pain (Intractable low back pain), other (Right lower extremity radiculopathy/right leg pain/intractable low back pain) History of present illness: Patient is a pleasant 69-year-old female who is well known to our service and is seen and examined at bedside for further evaluation for severe right lower extremity radiculopathy and intractable low back pain. Patient is well-known to our service and has been recently treated for an L1 compression fracture. Patient originally presented to the emergency department yesterday morning, 05/15/2019, for further evaluation. She was later discharged home. She present ed back to the emergency Department given her significant right lower extremity pain and intractable low back pain. Patient is having significant agitation and delirium. Consultation has been place with neurology. In the emergency department a CT of the abdomen pelvis was performed without any significant findings to account for the patient's symptoms. At the bedside today patient continues to be significantly agitated. She is arousable but quickly falls back asleep. While awake her legs are significantly restless. She is able to answer some questions but does not answer questions completely. She states her pain is significant in the right lower extremity during standing and ambulation. She is not currently complaining of any significant back pain during my evaluation at the bedside. She states she is not confused but is unsure where she is. Nursing states her approximately 5 days ago. Patient states she is unsure what is causing her symptoms. Without direct conversation she quickly falls back asleep. She is moving her legs in bed without significant diffic ulty. She does seem significantly agitated and not about her regular baseline. She does have a history of CABG performed in 2004. She does have some trophic skin changes bilateral lower extremities. She does have a history of bladder stimulator placement. She does follow with a supervisor paint. Patient does have a history of chronic right lower extremity radiculopathy. Past Medical History Past Medical History: Atrial Fibrillation, Cancer, Chest Pain / Angina, Heart Failure, COPD, Fibromyalgia, GERD/Reflux, Myocardial Infarction (PR), Osteoarthritis (OA), Pneumonia, Sleep Apnea/CPAP/BIPAP Additional Past Medical History / Comment(s): Chronic low back pain which radiates down bilateral legs, lumbar disc disease, spondylosis, lumbar compression fracture, myofascial pain syndrome, generalized arthritis, migraines, gout bilateral feet, osteoporosis, frequent falls, chronic urine retention/incontinence/has bladder stimulator, 1972 R renal cancer with nephrectomy, anemia, cardiac murmur, home oxygen at 2-3L/NC ATC, KOFFI but device is broken, vertigo, narcolepsy, IBS, Last Myocardial Infarction Date:: 2004 History of Any Multi-Drug Resistant Organisms: None Reported Past Surgical History: Appendectomy, Coronary Bypass/CABG, Heart Catheterization, Orthopedic Surgery, Pacemaker Additional Past Surgical History / Comment(s): Rt nephrectomy, lumber epidural injections-last one 03/07/19, bladder stimulator, fabricio carpal tunnel releases, surgery on left hand, 1 vessel CABG 2004, fabricio cataracts with lens implants, colonoscopy. Past Anesthesia/Blood Transfusion Reactions: Previous Problems w/ Anesthesia Additional Past Anesthesia/Blood Transfusion Reaction / Comm: Pt has received blood in past without reaction. Type of Cardiac Device: Permanent Pacemaker Device Placement Date:: 2006 Past Psychological History: Anxiety Smoking Status: Never smoker Past Alcohol Use History: None Reported Past Drug Use History: None Reported - Past Family History Mother Family Medical History: Diabetes Mellitus, Hypertension, Renal Disease Father Additional Family Medical History / Comment(s): Father comitted suicide. Family Family Medical History: Coronary Artery Disease (CAD) Medications and Allergies Home Medications Medication Instructions Recorded Confirmed Type Allopurinol [Zyloprim] 100 mg PO DAILY@0802/03/19 05/15/19 History Aspirin [Nedrow Aspirin EC] 81 mg PO DAILY@169902/03/19 05/15/19 History Carbidopa/Levodopa [Sinemet 25-250 3 - 4 tab PO DAILY PRN 02/03/19 05/15/19 History mg] Escitalopram [Lexapro] 20 mg PO HS@2100 02/03/19 05/15/19 History Isosorbide Mononitrate ER [Imdur] 30 mg PO DAILY@0802/03/19 05/15/19 History Ferrous Sulfate [Iron] 325 mg PO DAILY@169903/01/19 05/15/19 History Nitroglycerin Sl Tabs [Nitrostat] 0.4 mg SUBLINGUAL Q5M PRN 03/01/19 05/15/19 History Omeprazole [PriLOSEC] 40 mg PO DAILY@0600 03/01/19 05/15/19 History rOPINIRole HCL [Requip] 5 mg PO QID 03/01/19 05/15/19 History Apixaban [Eliquis] 5 mg PO BID@0800,1700 05/15/19 05/15/19 History Atorvastatin [Lipitor] 40 mg PO HS@2100 05/15/19 05/15/19 History Bisacodyl [Dulcolax] 10 mg RECTAL DAILY PRN 05/15/19 05/15/19 History Gabapentin [Neurontin] 100 mg PO TID@0600,1400,2100 05/15/19 05/15/19 History HYDROcodone/APAP 10-325MG [White 1 - 2 tab PO Q6H PRN 05/15/19 05/15/19 History 10-325] Magnesium Hydroxide [Milk of 7,200 mg PO ONCE PRN 05/15/19 05/15/19 History Magnesia Concentrate] Metoprolol Tartrate [Lopressor] 25 mg PO BID@0800,1700 05/15/19 05/15/19 History Modafinil [Provigil] 100 mg PO DAILY PRN 05/15/19 05/15/19 History Na Phos,M-B/Na Phos,Di-Ba [Fleet 133 ml RECTAL DAILY PRN 05/15/19 05/15/19 History Adult] Nystatin 500,000 unit PO QID 05/15/19 05/15/19 History Nystatin [Nystop] 1 applic TOPICAL DAILY PRN 05/15/19 05/15/19 History predniSONE See Taper PO DAILY@1200 05/15/19 05/15/19 History Allergies Allergy/AdvReac Type Severity Reaction Status Date / Time adhesive tape Allergy skin peels Verified 05/15/19 17:47 off Fish Containing Products Allergy Nausea Verified 05/15/19 17:47 [Fish] Sulfa (Sulfonamide Allergy Unknown Verified 05/15/19 17:47 Antibiotics) Physical Examination Physical exam: Patient is somewhat arousable and answers questions but incompletely; she is confused as to her location Patient is lying comfortably on her back Vital signs stable Good chest excursion with deep inspiration and expiration Dorsiflexion, plantarflexion, and extensor hallucis longus positive sustained bilaterally Lower extremity strength globally weaker bilaterally No lower extremity hyperreflexia bilaterally Evidence of trophic skin changes of the bilateral lower extremities No signs or symptoms of DVT; no calf pain No pain with internal and external rotation of the hips bilaterally Neurovascularly intact Results Pertinent studies: CT abdomen and pelvis taken on 05/15/2019 reviewed for an orthopedic standpoint: Imaging appears stable as compared to previous CT imaging taken on 02/03/2019; L1 compression fracture deformity with approximately 25% height loss at the superior endplate; severe degenerative disc disease and moderate spondylosis throughout lumbar spine; anterior osteophytic spurring T11-L2; T12-L1 degenerative disc disease; L5-S1 spondylolisthesis; L3-4 complete disc height loss; mild degenerative curve; evidence of bladder stimulator placement CT of the lumbar spine taken on 02/03/2019: L1 compression fracture deformity with approximately 25% height loss at the superior endplate; severe degenerative disc disease and moderate spondylosis throughout lumbar spine; anterior osteophytic spurring T11-L2; T12-L1 degenerative disc disease; L5-S1 spondylolisthesis; L3-4 complete disc height loss; mild degenerative curve; evidence of bladder stimulator placement; evidence of spinal canal stenosis with some neural foraminal stenosis L2-S1 X-rays lumbar spine taken on 02/03/2019: L1 compression fracture deformity with approximately 25% height loss at the superior endplate; severe degenerative disc disease and moderate spondylosis throughout lumbar spine; anterior osteophytic spurring T11-L2; T12-L1 degenerative disc disease; L5-S1 spondylolisthesis; L3-4 complete disc height loss; mild degenerative curve; evidence of bladder stimulator placement - Labs Labs: Abnormal Lab Results - Last 24 Hours (Table) 05/15/19 05/15/19 05/15/19 Range/Units 16:02 16:02 16:10 RBC 3.58 L (3.80-5.40) m/uL MCV 103.1 H (80.0-100.0) fL Plt Count 86 L (150-450) k/uL Lymphocytes # 0.7 L (1.0-4.8) k/uL Chloride 108 H (98-107) mmol/L Carbon Dioxide 31 H (22-30) mmol/L BUN 47 H (7-17) mg/dL Glucose 129 H (74-99) mg/dL POC Glucose (mg/dL) (75-99) mg/dL ALT 8 L (9-52) U/L Alkaline Phosphatase 190 H (38-126) U/L Total Protein 5.9 L (6.3-8.2) g/dL Albumin 2.9 L (3.5-5.0) g/dL Urine Protein Trace H (Negative) Urine Ketones Trace H (Negative) Urine Blood Small H (Negative) Ur Leukocyte Esterase Small H (Negative) Urine RBC 17 H (0-5) /hpf Urine Mucus Rare H (None) /hpf Urine Opiates Screen (NotDetected) U Tricyclic Antidepress (NotDetected) U Benzodiazepines Scrn (NotDetected) 05/15/19 05/16/19 Range/Units 16:10 06:56 RBC (3.80-5.40) m/uL MCV (80.0-100.0) fL Plt Count (150-450) k/uL Lymphocytes # (1.0-4.8) k/uL Chloride (98-107) mmol/L Carbon Dioxide (22-30) mmol/L BUN (7-17) mg/dL Glucose (74-99) mg/dL POC Glucose (mg/dL) 114 H (75-99) mg/dL ALT (9-52) U/L Alkaline Phosphatase (38-126) U/L Total Protein (6.3-8.2) g/dL Albumin (3.5-5.0) g/dL Urine Protein (Negative) Urine Ketones (Negative) Urine Blood (Negative) Ur Leukocyte Esterase (Negative) Urine RBC (0-5) /hpf Urine Mucus (None) /hpf Urine Opiates Screen Detected H (NotDetected) U Tricyclic Antidepress Detected H (NotDetected) U Benzodiazepines Scrn Detected H (NotDetected) H & H 05/15/19 Range/Units 16:02 Hgb 11.7 (11.4-16.0) gm/dL Hct 37.0 (34.0-46.0) % Result Diagrams: 05/15/19 16:02 05/15/19 16:02 Assessment and Plan Assessment: Assessment: Intractable low back pain Right lower extremity radiculopathy Agitation and delirium L1 compression fracture deformity with approximately 25% height loss of superior endplate which is felt to be chronic based on imaging L5-S1 spondylolisthesis Lumbar and lumbosacral spinal canal stenosis Lumbar and lumbosacral degenerative disc disease Lumbar and lumbosacral set spondylosis Thoracic and lumbar osteophytic spurring History of CABG in 2005 History of bladder stimulator placement Morbid obesity History of hypertension, heart failure, and myocardial infarction (1) Agitation Current Visit: Yes Status: Acute Code(s): R45.1 - RESTLESSNESS AND AGITATION SNOMED Code(s): 121164469 (2) Delirium Current Visit: Yes Status: Acute Code(s): R41.0 - DISORIENTATION, UNSPECIFIED SNOMED Code(s): 5375706 (3) Intractable low back pain Current Visit: Yes Status: Acute Code(s): M54.5 - LOW BACK PAIN SNOMED Code(s): 80651362035500938 (4) Lumbar degenerative disc disease Current Visit: Yes Status: Acute Code(s): M51.36 - OTHER INTERVERTEBRAL DISC DEGENERATION, LUMBAR REGION SNOMED Code(s): 42966618 (5) Chronic pain Current Visit: No Status: Acute Code(s): G89.29 - OTHER CHRONIC PAIN SNOMED Code(s): 13275800 (6) Compression fracture of L1 lumbar vertebra Current Visit: No Status: Acute Priority: Medium Code(s): S32.010A - WEDGE COMPRESSION FRACTURE OF FIRST LUMBAR VERTEBRA, INIT SNOMED Code(s): 893079374 (7) History of coronary artery bypass graft Current Visit: No Status: Acute Code(s): Z95.1 - PRESENCE OF AORTOCORONARY BYPASS GRAFT SNOMED Code(s): 074111996 (8) History of heart failure Current Visit: No Status: Acute Code(s): Z86.79 - PERSONAL HISTORY OF OTHER DISEASES OF THE CIRCULATORY SYSTEM SNOMED Code(s): 016493336 (9) History of hypertension Current Visit: No Status: Acute Code(s): Z86.79 - PERSONAL HISTORY OF OTHER DISEASES OF THE CIRCULATORY SYSTEM SNOMED Code(s): 094237279 (10) History of myocardial infarction Current Visit: No Status: Acute Code(s): I25.2 - OLD MYOCARDIAL INFARCTION SNOMED Code(s): 643554057 (11) Lumbar back pain with radiculopathy affecting right lower extremity Current Visit: No Status: Acute Code(s): M54.16 - RADICULOPATHY, LUMBAR REGION SNOMED Code(s): 960762401 (12) Lumbar facet arthropathy Current Visit: No Status: Acute Code(s): M47.816 - SPONDYLOSIS W/O MYELOPATHY OR RADICULOPATHY, LUMBAR REGION SNOMED Code(s): 151602926 (13) Spondylolisthesis at L5-S1 level Current Visit: No Status: Acute Code(s): M43.17 - SPONDYLOLISTHESIS, LUMBOSACRAL REGION SNOMED Code(s): 316975457 Plan: Plan: 1. Patient will be discussed in detail with Dr. Panchito Oro. We have been following the patient in outpatient setting for her L1 compression fracture deformity. She has not had a recent injury. She is known to have chronic low back pain and right lower extremity radiculopathy. She follows up with a supervisor paint. At this time is difficult to determine the exact cause of the exacerbation of her symptoms. At the bedside she is significantly agitated with some delirium. She is somewhat arousable and answers questions but not completely. She is confused as to her location. At this time, we would plan to exhaust all conservative treatment options. We're not currently complaining for surgical intervention at her lumbar spine. We could possibly plan for consultation with pain management but it would be difficult to determine if she could make decisions appropriately giving her current state of agitation and delirium. Nursing states patient is currently waiting for psychiatric evaluation. Consultation has been placed with neurology as well. At this time will not plan to obtain further imaging or plan for other treatment in regards to her lumbar spine. She was previously prescribed an LSO brace. She may wear this previously prescribed brace for comfort support as needed. We will plan to have her follow up in outpatient setting for further evaluation. Patient will be cleared for discharge from an orthopedic spine standpoint following clearance by other medical providers. Following discharge patient to follow-up with Brayden Myrick PA-C or Dr. Panchito Oro at [facility] in approximately 2-3 weeks for further evaluation. 2. Patient will continue be seen by medicine for her other medical diagnoses. 3. Patient currently waiting for consultation with neurology and psychiatric evaluation Time with Patient: Greater than 30 (Including obtaining history, physical examination, reviewing of imaging, and dictation.)
--- NOTE | 2019-05-16 14:19 | P.CN ---
Psychiatric Consult - . Consult date: 05/16/19 Consult:: 05/16/19 14:03 Identification: Patient is a 69-year-old female was admitted from the emergency room after being transferred there from [facility] for complaints of pain this occurred 2 times on May 15. Reason for Consult: Delirium, agitation History of Present Illness: Patient is known to me from her prior admission, patient's chart was reviewed she was seen and interviewed in her room no family members were present. Patient states that she went to [facility], and had pain that was unrelenting, is questioning why she is not seeing the pain doctor to get injections in her back and states that her legs are restless because she has restless legs. Patient states that her pain is not well-controlled. When I saw the patient on the day of her discharge she was comfortable and not complaining of pain and was not restless or agitated, earlier in that admission the patient had been quite drowsy due to a diagnosis of narcolepsy and had not been placed on her Provigil. Patient only complaint today is of pain, she is restless in bed, states that she is willing to go back to [facility] and wants to speak to her nephew whom she wants to assign as her power of claim attorney. Patient's had several days prior to her last admission, she has been treated with Lexapro by her power operator for anxiety and has been on this for a number of years with good results. Patient has no history of inpatient psychiatric care and has seen a psychiatrist many years in the past for complaints of anxiety. patient has no history of suicide attempts and has no history of inpatient admissions. Patient during her last admission was evaluated by me and initially was refusing to go to any rehab facility, insisting that she could go home with minimal care. Patient was seen the next day and her mentation had cleared and she was agreeable to the transfer to [facility] and so no guardian was petitioned for and she went to [facility]. Patient's only complaint today is of pain in her legs being restless, she is unable to lie still but is awake and somewhat agitated. Patient is denying any suicidal thoughts, there is no evidence of a psychotic process and the patient knew the day, year and that she was in a hospital. Patient was alert during the evaluation was not dozing off that she had during her admission prior to receiving Provigil. Past Psychiatric History: Patient has a history of prior inpatient psychiatric treatment and has been on Lexapro 20 mg for a number of years from her power operator for anxiety. Patient also has a diagnosis of narcolepsy and was using Provigil 100 mg Past Medical/Surgical History: Patient has a history of atrial fibrillation, coronary artery disease, congestive heart failure, COPD, fibromyalgia, GERD, osteoarthritis, sleep apnea using a CPAP machine, narcolepsy is status post appendectomy, orthopedic surgery, CABG 1, has a pacemaker placed and is status post right nephrectomy. Social History: Patient was and was living with her until his recent , she has no children and was receiving 3 hours of help Thursday through Thursday from the [place] on aging. She had been living in an apartment with her where they had moved from the home. Patient was recently placed at [facility] initially resistant to this but then did agree that this was an appropriate placement and continues to state that she would return there. Mental status: Appearance/Attitude: Patient is lying in a hospital bed wearing a hospital gown and continually moves her legs and complains of pain, patient makes intermittent eye contact Behavior: Patient does not display any psychomotor retardation but is restless and slightly agitated Speech/Language: Patient's speech is spontaneous, speaking in a normal volume and rhythm and she is coherent Thought Process: Patient at times responds relevantly to questions at other times the patient is tangential Thought Content: Patient denies any auditory or visual hallucinations and no delusions or paranoid ideation is elicited. Patient states that she was in a lot of pain and asked to come to the hospital, per the record she was screaming in pain. Patient states that she was at [facility] and wants to return there. Patient is unable to give any other history at this time stating that her only complaint is of pain. She continues to request that she see the pain doctor and begin injections. Suicidal/Homicidal Ideation: Patient denies any current suicidal or homicidal ideation Sensorium/Cognition: Patient is alert, she is oriented to person, situation, she is in a hospital and knew that it was Thursday if 2019 further cognitive testing is not performed Mood/Affect: Patient's mood is irritable, slightly agitated and her affect is appropriate to her mood Insight/Judgment: Patient's insight and judgment are fair Assessment: Patient is seen today after being brought to the emergency room on 2 occasions on May 15 due to screaming and yelling in pain. Patient appears slightly agitated today which is different from her prior presentation when she was nodding off frequently, patient does have a history of narcolepsy and when she was stabilized on her prior medications patient was more alert and did make the decision to go to [facility] without argument. Patient was given Solu-Medrol, Valium 5 mg IV 2 and morphine 4 mg IV 2 in the emergency room prior to coming up to the floor and has received Ativan 0.5 mg earlier today. I suspect that some of her agitation, restlessness is due to the above medications. Diagnosis: Altered mental status, history of unspecified anxiety disorder Plan: At this time I do not recommend any additional psychotropic medication as I suspect a combination of medications given in the emergency room may have precipitated her agitation and irritability. Patient was on Lexapro 20 mg and this was for anxiety as had been prescribed by her power operator, she is also a recent with her having several days prior to her last admission. Patient also has a diagnosis of narcolepsy and was using Provigil 100 mg daily as needed. At this time the patient does not require an inpatient psychiatric admission, she is willing to return to [facility] and also willing to have her nephew become her power of claim attorney, patient is not violent nor is she refusing medical care and so I see no need for any psychotropic medication. Patient can be restarted on her Lexapro and Provigil if there is no medical contraindication. Would use the benzodiazepines sparingly as this will contribute to her irritability and confusion. Patient's mentation improved during her last admission I see no reason at this time to petition for guardianship. I will sign off the case and if there are further questions or concerns please don't hesitate to contact me. 05/16/19 14:10
[2019-05-16] MEDS ORDERED: CARBIDOPA-LEVODOPA 25-250 MG 1 EACH TAB PO PRN (14:36)
[2019-05-16] MEDS ORDERED: BISACODYL 10 MG SUPP RECTAL PRN (14:36)
[2019-05-16] MEDS ORDERED: MODAFINIL 100 MG TAB PO PRN (14:36)
[2019-05-16] MEDS ORDERED: NITROGLYCERIN SL TABS 0.4 MG TAB SUBLINGUAL PRN (14:36)
[2019-05-16] MEDS ORDERED: NA PHOS,M-B/NA PHOS,DI-BA 133 ML ENEMA RECTAL PRN (14:36)
[2019-05-16] MEDS ORDERED: NYSTATIN 100,000 UNIT/GM POWD 15 GM TOPICAL PRN (14:36)
[2019-05-16] MEDS ORDERED: MAGNESIUM HYDROXIDE 2,400 MG/10 ML CUP PO PRN (14:36)
[2019-05-16] MEDS ORDERED: FUROSEMIDE 10 MG/ML 4 ML VIAL IV STA (14:39)
[2019-05-16] MEDS ORDERED: IPRATROPIUM-ALBUTEROL 3 ML NEB INHALATION PRN (14:40)
[2019-05-16] MEDS ORDERED: HYDROmorphone 0.5 MG/0.5 ML SYRINGE IVP PRN (14:40)
[2019-05-16] MEDS: IPRATROPIUM-ALBUTEROL 3 ML NEB INHALATION SCH ×2 (16:06→20:42)
[2019-05-16] MEDS: PIPERACILLIN-TAZOBACTAM 3.375 GM in SODIUM CHLORIDE 0.9% 100 ML IVPB SCH (16:26)
[2019-05-16] MEDS: METOPROLOL TARTRATE 25 MG TAB PO SCH (16:52)
[2019-05-16] MEDS: ASPIRIN 81 MG PO SCH (16:52)
[2019-05-16] MEDS: NYSTATIN 100,000 UNIT/ML SUSP 500,000 UNIT/5 ML CUP PO SCH ×2 (16:52→22:07)
[2019-05-16] MEDS: APIXABAN 5 MG TAB PO SCH (16:52)
[2019-05-16] MEDS: FERROUS SULFATE 325 MG TAB PO SCH (16:52)
[2019-05-16 17:05] LABS: Glucose,Whole Blood 141 mg/dL (75-99)
--- NOTE | 2019-05-16 17:07 | HP ---
HISTORY AND PHYSICAL DATE OF SERVICE: 05/16/2019 CHIEF COMPLAINTS: Back pain, abdominal pain and shortness of breath. HISTORY OF PRESENT ILLNESS: This 69-year-old woman with a past medical history of multiple medical problems, including atrial fibrillation, history of CHF, COPD, fibromyalgia, history of DJD, history of chronic back pain with a neck stimulator implanted, history of CABG, anxiety, being followed by Dr. Weiss in the outpatient setting, was admitted with back pain. The pain was radiating to the legs and the front of the abdomen, also. The pain was 10/10 in intensity. Patient also had change in mental status. The patient was recently admitted to the hospital last week with persistent atrial fibrillation; during that time the patient was diuresed and the patient improved significantly. Patient was discharged to [facility] and subsequently with outpatient followup. Currently the patient is complaining of shortness of breath with cough and some sputum. The patient has severe pain, also. The patient has been admitted for further evaluation and treatment. There is no history of any fever, rigor or chills. No history of headache, loss of consciousness, seizures. PAST MEDICAL HISTORY: 1. History of atrial fibrillation. 2. History of CHF with chronic diastolic dysfunction, ejection fraction 50% to 55%. 3. COPD. 4. Fibromyalgia. 5. GERD. 6. Myocardial infarction. 7. DJD. 8. Sleep apnea. 9. Appendectomy. 10.CAD, CABG. 11.Anxiety. HOME MEDICATIONS: Home medications are noted and include: 1. Requip 5 mg p.o. q.i.d. 2. Prednisone taper daily. 3. Prilosec 40 mg daily. 4. Nystop 1 application daily p.r.n. 5. Nystatin 500,000 p.o. q.i.d. 6. Nitrostat 0.4 mg sublingually p.r.n. 7. Fleet 133 mL daily p.r.n. 8. Provigil 100 mg p.o. daily p.r.n. 9. Lopressor 25 mg p.o. b.i.d. 10.Milk of Magnesia. 11.Imdur 30 mg p.o. daily. 12.[place] 10 mg 1-2 q.6 p.r.n. 13.Neurontin 100 mg p.o. t.i.d. 14.Iron 325 mg p.o. daily. 15.Lexapro 20 mg at bedtime. 16.Sinemet 25/250 three to four tablets p.o. daily p.r.n. 17.Dulcolax 10 mg daily p.r.n. 18.Lipitor 40 mg at bedtime. 19.Aspirin 81 mg p.o. daily. 20.Eliquis 5 mg p.o. b.i.d. 21.Zyloprim 100 mg p.o. b.i.d. ALLERGIES: 1. ADHESIVE TAPE. 2. FISH-CONTAINING PRODUCTS. 3. SULFA. FAMILY HISTORY: History of diabetes, hypertension, renal disease, suicide. SOCIAL HISTORY: No history of smoking. No history of alcohol intake. REVIEW OF SYSTEMS: ENT: Diminished hearing. Diminished vision. CARDIOVASCULAR SYSTEM: As mentioned earlier. RESPIRATORY SYSTEM: As mentioned earlier. GI: No nausea, vomiting. : No dysuria or retention. NERVOUS SYSTEM: No numbness, weakness. ALLERGY/IMMUNOLOGY: No asthma, hayfever. MUSCULOSKELETAL: As mentioned earlier. HEMATOLOGY/ONCOLOGY: No history of anemia. ENDOCRINE: No history of diabetes, hypothyroidism. CONSTITUTIONAL: As mentioned earlier. DERMATOLOGY: Negative. RHEUMATOLOGY: Negative. PSYCHIATRY: As mentioned earlier. PHYSICAL EXAMINATION: Patient is alert and oriented x3. Pulse is 65, blood pressure 153/50, respiration 18, temperature 97.6, pulse ox 92% on 3 L. HEENT: Conjunctivae normal. Oral mucosa moist. NECK: No jugular venous distention. No carotid bruit. No lymph node enlargement. CARDIOVASCULAR SYSTEM: S1, S2 muffled. No S3. No S4. RESPIRATORY SYSTEM: Breath sounds diminished at the bases. A few scattered rhonchi and crackles. Bilateral basilar crackles. ABDOMEN: Soft, obese, nontender. No mass palpable. LEGS: No edema. No swelling. Movements are painful. NERVOUS SYSTEM: Higher functions as mentioned earlier. Moves all 4 limbs. No focal motor or sensory deficit. LYMPHATICS: No lymph node palpable in neck, axillae or groin. JOINTS: No active deforming arthropathy. EXAMINATION OF THE BACK: Some tenderness present. LABS: WBC 7.8, hemoglobin 11.7, sodium 142, potassium 4.4. Chest x-ray noted. ASSESSMENT: 1. Shortness of breath, possibly bibasilar pneumonia, possibly gram-negative; possibly congestive heart failure, acute exacerbation, with acute and chronic diastolic dysfunction. 2. Acute on chronic back pain secondary to degenerative joint disease. 3. History of atrial fibrillation. 4. History of chronic obstructive pulmonary disease. 5. History of congestive heart failure with chronic diastolic dysfunction, ejection fraction 50% to 55%. Narcolepsy 6. History of fibromyalgia. 7. Gastroesophageal reflux disease. 8. History of degenerative joint disease. 9. History of sleep apnea. 10.History of chronic low back pain. 11.History of osteoporosis. 12.History of frequent falls. 13.History of renal cancer with nephrectomy. 14.History of pain stimulator. 15.History of coronary artery disease, coronary artery bypass grafting. 16.History of pacemaker. 17.History of anxiety. 18.Obesity with body mass index of 42. 19.Gait dysfunction. 20.FULL CODE. RECOMMENDATIONS AND DISCUSSION: In this 69-year-old woman who presented with multiple complex medical issues, I would recommend continuing the current medications, continue with symptomatic treatment. Will initiate bronchodilators as well as diuretics. Otherwise, I would also recommend pain medications. PT/OT evaluation. ECF rehab. Psychiatry has been consulted, and Orthopedics has also been consulted for her back pain. I would also recommend a cardiology consultation for CHF. See orders for further details. Further recommendations to follow. Medication reconciliation was done. Prognosis guarded because of multiple complex medical issues. Discussed with the patient, who understands. Further recommendations to follow. A copy of this dictation is being forwarded to Dr. Weiss, who is following the patient in the outpatient setting, and Dr. Harman, who is the primary physician. JUAN / TRISTEN: [id number] / OSWALDO
[2019-05-16 17:49] VITALS: BMI 43.2
[2019-05-16] MEDS ORDERED: rOPINIRole HCL 4 MG TABLET PO SCH (18:00)
--- NOTE | 2019-05-16 19:23 | CT ---
EXAMINATION TYPE: CT brain wo con DATE OF EXAM: 05/16/2019 COMPARISON: None HISTORY: Altered mental status CT DLP: 2194.4 mGycm Automated exposure control for dose reduction was used. FINDINGS: There is some cerebral cortical atrophy. There is no mass effect nor midline shift. There is no sign of intracranial hemorrhage. The calvarium is intact. IMPRESSION: MILD ATROPHY. NO ACUTE INTRACRANIAL ABNORMALITY.
[2019-05-16 20:49] LABS: Glucose,Whole Blood 120 mg/dL (75-99)
[2019-05-16] MEDS ORDERED: GABAPENTIN 100 MG CAP PO SCH (21:00)
[2019-05-16] MEDS: GABAPENTIN 300 MG CAP PO SCH (22:07)
[2019-05-16] MEDS: ATORVASTATIN 40 MG TAB PO SCH (22:07)
[2019-05-16] MEDS: FUROSEMIDE 10 MG/ML 2 ML VIAL IV SCH (22:07)
[2019-05-16] MEDS: ESCITALOPRAM 20 MG TAB PO SCH (22:07)
[2019-05-16] MEDS: rOPINIRole HCL 4 MG TABLET PO SCH (22:08)
--- NOTE | 2019-05-16 23:37 | CONS ---
CONSULTATION DATE OF CONSULTATION: 05/16/2019. REFERRING PHYSICIAN: Dr. Mora. HISTORY OF PRESENT ILLNESS: Thank you for allowing me to evaluate Krista Carrera who is a 69-year-old right- handed female who presented to [facility] on 05/15/2019 for evaluation of agitation and intractable back pain. The patient was initially seen in the emergency room at 6:00 am due to low back pain with radiation to the lower extremities, pain was managed and the patient was discharged back to [facility]. She subsequently returned as she was screaming in pain. The patient denied fall or trauma. In the emergency room, received multiple medications including Solu-Medrol, Valium 5 mg IV x2, morphine 4 mg IV x2, and according to nursing staff, has been restless and agitated in bed. The patient has already been seen by Psychiatry who felt that her agitation and irritability was secondary to medication effect. The patient currently denies a vertigo, diplopia, dysarthria, difficulty chewing/swallowing, or focal weakness/numbness in the extremities. She denies previous history of stroke or seizure. She was recently hospitalized at [facility] between 05/08 and 05/11/2019, at which time she presented with altered mental status and was seen by Dr. Fernandes of Neurology at that time. His note reflects the fact that the patient just became on 05/06/2019 and when the patient mentioned this to me, she began to cry and stated that he "so suddenly." She apparently has been grieving and at the time of the previous hospitalization, was heard to be screaming in her apartment by a neighbor. EMS found the patient slumped over the chair. She had not been sleeping, unable to eat, had not been taking any of her home medications after her . The patient has a long history of chronic back pain and currently states this radiates into the lateral aspect of the lower extremities to the level of the feet. She feels the strength in her lower extremities as well. She reports numbness in distal lower extremities in a symmetric fashion which she attributes to neuropathy. She has been evaluated by Dr. Oro of Orthopedics and follows with him on an outpatient basis in the setting of an L1 compression fracture. The patient was referred to Pain Management and apparently last received epidural received injection therapy on 03/07/2019. She states the last injection did provide benefit, although the pain has returned. She states the pain is worse when she tried to move. She has a history of chronic urinary retention/incontinence and status post bladder stimulator placement. It should be noted the patient also has a history of osteoarthritis, osteoporosis, fibromyalgia, and morbid obesity with deconditioning. Consultation with ortho Orthopedics during this hospitalization indicated that they are not currently contemplating surgical intervention on the lumbar spine. The patient has a history of narcolepsy, maintained on Provigil and previously followed with Dr. Braswell of Neurology at [facility] in this regard. She states Dr. Braswell had little else to offer and was also treating intractable restless legs syndrome, and it is noted, the patient is currently maintained on high dose Requip at 5 mg q.i.d. in addition to a Sinemet 25/250 3-4 times per day p.r.n., gabapentin 100 mg t.i.d. and patient states she takes [place]er on a b.i.d. basis. ALLERGIES: SULFA. MEDICATIONS: Home medications Requip 5 mg q.i.d., omeprazole, nystatin, nitroglycerin sublingual, Provigil, Lopressor, milk of magnesia, Imdur, Towner b.i.d., gabapentin 100 mg t.i.d., iron, Lexapro, Sinemet 25-50 3-4 times per day, MiraLAX, Lipitor, aspirin 81 mg a day, Eliquis, and Zyloprim. PAST MEDICAL HISTORY: CHF, chronic hypercapnic respiratory failure on home oxygen, chronic low back pain, coronary disease, with morbid obesity, hypertension, myocardial infarction, anxiety, narcolepsy, atrial fibrillation, COPD, fibromyalgia, GERD, osteoarthritis, osteoporosis, obstructive sleep apnea, restless legs syndrome, L1 compression fracture, urinary retention/incontinence, renal cell carcinoma, and IgG lambda monoclonal gammopathy. PAST SURGICAL HISTORY: Coronary bypass surgery, appendectomy, pacemaker placement, right nephrectomy, bladder stimulator placement 5 years ago, bilateral cataract extraction, carpal tunnel release and epidural injection last on 03/07/2019. SOCIAL HISTORY: Patient denies tobacco or alcohol use. She was recently on 05/06/2019, and has no children. She was recently discharged to [facility] on 05/11/2019. She states she plans to have her nephew become her [id number]. FAMILY HISTORY: The patient's parents are and father committed suicide and mother was morbidly obese, the patient estimates around 500 pounds. His. REVIEW OF SYSTEMS: Fourteen system reviewed and no symptoms are identified. The review of systems as documented in history and physical. PHYSICAL EXAM: The patient is on room air. She was lying in bed, receptive to the examiner. She was initially drifting off to sleep, but as the evaluation number went on, the patient maintained alertness, although was persistently restless with her lower extremities in bed. In my conversation with nursing staff, they state that she has not received any of her home medications over the past day and a half with return visits to the emergency room. The patient is morbidly obese, deconditioned, affect is flat. She is intermittently crying referencing her passing away suddenly. She appears older than stated age. VITAL SIGNS: Blood pressure is 153/50 with pulse of 65, respiratory rate 18, temperature 98.6, weight is 97.5 kg on a 5 foot 2 inch frame. Skin/extremities: Arthritic change in the hands. For the patient has reduced range of motion at the left shoulder and left elbow where she also reports pain. Chronic skin changes are noted in the distal lower extremities. Head and neck. No signs of trauma. NECK: Supple without meningeal signs. Arteries are nontender and without bruits. HEART: Regular rate and rhythm. Higher cortical function/mental status: The patient was alert through the majority of the evaluation, she was oriented to self, she knew she was in a hospital in [place], [place]. She knew the year and the month. She was able to name, repeat, and read. There was no right/left disorientation, finger agnosia or extinction to double simultaneous stimulation. Cranial Nerves: II: Pupils are postsurgical and reactive to light, no afferent pupillary defect. Visual adame are intact to confrontation. 3,4,6: There is subtle left-sided ptosis, extraocular movements are full. No nystagmus. 5: Pinprick, light touch intact intact in all three divisions, motor of 5 intact. 7: No facial asymmetry or weakness, 8: acuity intact to finger rub, 9,10: Palate zeniada in the midline, 11: Trapezius strength intact, 12: Tongue protruded midline without fasciculation or atrophy. Motor examination, there was no drift on the right side. The patient has difficulty lifting the left upper extremity related to a local shoulder issues. There is reduced bulk in hand intrinsic muscles with normal tone and no involuntary movements are noted. Her strength is at least 4+ over 5 involving the upper extremities except at the left deltoid which is at least 4-/5 and limited by pain. In the lower extremities, strength is 4+ to 5- throughout, although the patient provides brief and unsustained effort and is restless in her lower extremities. She is wearing disposable undergarments, which she states she uses at home. Sensory patient reports gradient to pinprick and light touch just above the ankles in bilateral lower extremities, the remainder of the upper and lower extremities were intact. Reflexes: Right side listed first: biceps 1/1, Brachioradialis 1/1, triceps 1/1, patellae 0/0, ankle 0/0. Plantar responses flexor bilaterally. Dixon's is absent. Coordination: finger to nose are intact on the right and mildly limited on the left related to local shoulder issues. [id number] are intact. Rapid movements are symmetric with finger tapping. LABORATORY DATA: The patient's lab work demonstrates a white blood count of 7.8, hemoglobin 11.7, platelet count 187, platelet count 86, and sodium 142, potassium 4.4, BUN 47, with a creatinine of 0.98. ALT 8, AST of 34. Urine tox screen was positive for opiates, tricyclics, and benzodiazepines. Urinalysis revealed small leukocyte esterase, 5 WBC, 77 RBCs. ASSESSMENT: 1. Encephalopathy, likely secondary to polypharmacy/withdrawal phenomenon with home medication including Requip, [place]er, high dose Sinemet, and steroids; Valium/morphine was received in the emergency room; prerenal azotemia and depression/recent grief reaction related to becoming "suddenly" on 05/06/2019. 2. Intractable back/lower extremity pain which is likely multifactorial in nature in the setting of a recent L1 compression fracture, fibromyalgia, osteoarthritis, neuropathy and restless legs syndrome. The patient has been following with Orthopedics and Pain Management on an outpatient basis and received injection therapy most recently on 03/07/2019. 3. Refractory restless legs syndrome, previously following at [facility] with probable augmentation on high dose Requip/Sinemet because the patient has apparently been off these medications for over 1 day. 4. IgG lambda monoclonal gammopathy, following with Hematology on an outpatient basis. 5. Thrombocytopenia. 6. History of narcolepsy, maintained a Provigil. 7. Obstructive sleep apnea. 8. Morbid obesity with deconditioning. 9. Sick sinus syndrome, status post MRI incompatible pacemaker placement. 10. Chronic urinary retention/incontinence, status post bladder stimulator placement over 5 years ago. 11.Multiple medical problems including congestive heart failure, chronic hypercapnic respiratory failure, coronary artery disease status post coronary artery bypass surgery,.hypertension, previous myocardial infarction, osteoporosis, anxiety,atrial fibrillation chronic obstructive pulmonary disease, gastroesophageal reflux disease and renal cell carcinoma status post right nephrectomy. RECOMMENDATION: 1. Case was discussed with the patient and nursing staff. 2. We will obtain a CT of the brain without contrast and check ferritin level. The patient previously had normal B12/folate levels. 3. Home medications are to be restarted; however, I would recommend gradual weaning on an outpatient basis of the high dose of Requip and Sinemet, particularly in a patient with narcolepsy who is likely experiencing augmentation and Requip can provoke sleep attacks. Her gabapentin dose can be gradually increased to assist with restless leg complaints. 4. Orthopedics is currently on the case who are familiar with the patient and do not intend to pursue lumbar spine surgery, the patient also follows with Pain Management on outpatient basis. 5. We will follow with you. Thank you for allowing me to participate in the care of your patient. MMODL / IJN: [id number] / MTDClaudine
[2019-05-17] MEDS: PIPERACILLIN-TAZOBACTAM 3.375 GM in SODIUM CHLORIDE 0.9% 100 ML IVPB SCH ×3 (00:03→16:55)
[2019-05-17] MEDS: PANTOPRAZOLE 40 MG TABLET PO SCH (05:58)
[2019-05-17] MEDS: KETOROLAC 30 MG/ML 1 ML VIAL IVP PRN (06:00)
[2019-05-17 06:55] LABS: Glucose,Whole Blood 92 mg/dL (75-99)
[2019-05-17 08:32] LABS: Basophils % (A) 0 %; Eosinophils # (A) 0.1 k/uL (0-0.7); Eosinophils % (A) 1 %; HGB 12.1 gm/dL (11.4-16.0); Hypochromasia Slight; Lymphocytes # (A) 1.7 k/uL (1.0-4.8); Lymphocytes % (A) 22 %; MCH 31.4 pg (25.0-35.0); MCHC 30.3 g/dL (31.0-37.0); MCV 103.5 fL (80.0-100.0); Macrocytosis Moderate; Mean Platelet Volume 9.2; Monocytes # (A) 0.4 k/uL (0-1.0); Monocytes % (A) 6 %; Neutrophils # (A) 5.4 k/uL (1.3-7.7); Neutrophils % (A) 70 %; RBC 3.86 m/uL (3.80-5.40); WBC 7.7 k/uL (3.8-10.6)
[2019-05-17 08:35] LABS: Calcium 8.8 mg/dL (8.4-10.2); Potassium 3.6 mmol/L (3.5-5.1)
[2019-05-17 08:37] LABS: Platelet Count 91 k/uL (150-450)
[2019-05-17] MEDS: IPRATROPIUM-ALBUTEROL 3 ML NEB INHALATION SCH ×4 (08:59→19:43)
[2019-05-17] MEDS: ACETAMINOPHEN TAB 325 MG TAB PO PRN (09:08)
[2019-05-17] MEDS: METOPROLOL TARTRATE 25 MG TAB PO SCH ×2 (09:09→17:08)
[2019-05-17] MEDS: GABAPENTIN 300 MG CAP PO SCH ×3 (09:09→20:37)
[2019-05-17] MEDS: ISOSORBIDE MONONITRATE ER 30 MG TAB.ER.24H PO SCH (09:09)
[2019-05-17] MEDS: rOPINIRole HCL 4 MG TABLET PO SCH ×4 (09:10→20:37)
[2019-05-17] MEDS: NYSTATIN 100,000 UNIT/ML SUSP 500,000 UNIT/5 ML CUP PO SCH ×4 (09:10→20:38)
[2019-05-17] MEDS: APIXABAN 5 MG TAB PO SCH ×2 (09:10→17:20)
[2019-05-17] MEDS: ALLOPURINOL 100 MG TAB PO SCH (09:10)
[2019-05-17] MEDS: FUROSEMIDE 40 MG TAB PO SCH (09:22)
[2019-05-17] MEDS: FUROSEMIDE 10 MG/ML 2 ML VIAL IV SCH (09:32)
[2019-05-17 11:26] LABS: Glucose,Whole Blood 137 mg/dL (75-99)
--- NOTE | 2019-05-17 11:45 | P.CRDCN ---
History of Present Illness History of present illness: This is a 69-year-old female past medical history significant for coronary artery disease status post bypass grafting, paroxysmal atrial fibrillation on long-term anticoagulation, status post permanent pacemaker implantation, chronic diastolic heart failure, COPD, fibromyalgia, obstructive sleep apnea, dyslipidemia and hypertension. She follows with a base manager out of [facility]. We have been asked to see her in consultation for suspected heart failure. At the time of my exam the patient is seen and examined sitting up in bed in no acute distress. She is somewhat confused at baseline and having issues with short-term memory recall. 2 the information is obtained from the nursing staff and the medical record. She presented to the hospital May 15 from extended care facility complaining of significant low back pain. She has been admitted for delerium and agitation with consults for psychiatry, orthopedics, neurology and cardiology. EKG reveals atrial paced rhythm, T-wave inversions in the anterior precordial leads. Consistent with previous EKGs no acute changes noted. Chest xray reveals mild interstitial prominence possible bronchitis, asthma or mild pulmonary vascular congestion. Persistent atelectasis or infiltrate. CT of the abdomen and pelvis reveals possible cirrhosis otherwise unremarkable. CT brain revealed mild atrophy with no acute intracranial abnormality. Laboratory reviewed, WBC 7.7, hgb 12.1, plt 91, sodium 144, potassium 3.6, creatinine 1.16, GFR 86, NTproBNP 1040, negative cardiac enzymes. Current cardiac medications include eliquis 5 mg BID, aspirin 81 mg daily, atorvastatin 40 mg daily, imdur 30 mg daily, lopressor 25 mg BID. Most recent echocardiogram obtained February 2019 reveals preserved LV systolic function with ejection fraction 55%, mild aortic valve sclerosis, mild mitral regurgitation and mild tricuspid regurgitation. At the time of my exam, patient seems confused at baseline. CONSTITUTIONAL: Denies fever. Denies chills. EYES: Denies blurred vision. Denies vision changes. Denies eye pain. EARS, NOSE, MOUTH & THROAT: Denies headache. Denies sore throat. Denies ear pain. CARDIOVASCULAR: Denies chest pain. Denies shortness of breath. Denies orthopnea. Denies PND. Denies palpitations. RESPIRATORY: Denies cough. GASTROINTESTINAL: Denies abdominal pain. Denies diarrhea. Denies constipation. Denies nausea. Denies vomiting. MUSCULOSKELETAL: Complains of low back discomfort and bilateral lower extremity irritation. INTEGUMENTARY: Denies pruitis. Denies rash. NEUROLOGIC: Denies numbness. Denies tingling. Denies weakness. PSYCHIATRIC: Denies anxiety. Denies depression. ENDOCRINE: Denies fatigue. Denies weight change. Denies polydipsia. Denies polyurina. GENITOURINARY: Denies burning, hematuria or urgency with micturation. HEMATOLOGIC: Denies history of anemia. Denies bleeding. Blood pressure 119/76 heart rate 73 afebrile maintaining oxygen saturation on nasal cannula GENERAL: This is a 69-year-old female in no apparent distress at the time of my examination. Obese. HEENT: Head is atraumatic, normocephalic. Pupils are equal, round. Sclerae anicteric. Conjunctivae are clear. Mucous membranes of the mouth are moist. Neck is supple. There is no jugular venous distention. No carotid bruit is heard. LUNGS: Clear to auscultation no wheezes, rales or rhonchi. No chest wall te nderness is noted on palpation or with deep breathing. HEART: Regular rate and rhythm with systolic ejection murmur at the left sternal border, no rubs or gallops. S1 and S2 heard. ABDOMEN: Soft, nontender. Bowel sounds are heard. No organomegaly noted. EXTREMITIES: No evidence of peripheral edema and no calf tenderness noted. VASCULAR: Radial and dorsalis pedis pulses palpated, no evidence of clubbing, purple discoloration suggestive of venous stasis. NEUROLOGIC: Patient is awake and alert. Seems confused about living situation and reason for hospitalization. ASSESSMENT Low back pain Confusion, unknown etiology. Possibly metabolic encephalopathy vs medication side effects per psych Chronic diastolic heart failure, currently euvolemic Paroxysmal atrial fibrillation on watermaster anti-coagulation, currently maintaining sinus mechanism History of coronary artery disease s/p bypass grafting. Follows with a base manager out of [facility] Hypertension Dyslipidemia s/p permanent pacemaker implantation Obesity, BMI 42 PLAN Clinically she is euvolemic with no evidence to suggest fluid overload or acute heart failure. Transition to PO diuretics. Ongoing medical management and evaluation of confusion. Thank you kindly for this consultation. Nurse Practitioner note has been reviewed, I agree with a documented findings and plan of care. Patient was seen and examined. Past Medical History Past Medical History: Atrial Fibrillation, Cancer, Chest Pain / Angina, Heart Failure, COPD, Fibromyalgia, GERD/Reflux, Myocardial Infarction ([place]), Oste oarthritis (OA), Pneumonia, Sleep Apnea/CPAP/BIPAP Additional Past Medical History / Comment(s): Chronic low back pain which radiates down bilateral legs, lumbar disc disease, spondylosis, lumbar compression fracture, myofascial pain syndrome, generalized arthritis, migrain es, gout bilateral feet, osteoporosis, frequent falls, chronic urine retention/incontinence/has bladder stimulator, 1972 R renal cancer with nephrectomy, anemia, cardiac murmur, home oxygen at 2-3L/NC ATC, KOFFI but device is broken, vertigo, narcolepsy, IBS, Last Myocardial Infarction Date:: 2004 History of Any Multi-Drug Resistant Organisms: None Reported Past Surgical History: Appendectomy, Coronary Bypass/CABG, Heart Ca theterization, Orthopedic Surgery, Pacemaker Additional Past Surgical History / Comment(s): Rt nephrectomy, lumber epidural injections-last one 03/07/19, bladder stimulator, fabricio carpal tunnel releases, surgery on left hand, 1 vessel CABG 2004, fabricio cataracts with lens implants, colonoscopy. Past Anesthesia/Blood Transfusion Reactions: Previous Problems w/ Anesthesia Additional Past Anesthesia/Blood Transfusion Reaction / Comment(s): Pt has received blood in past without reaction. Type of Cardiac Device: Permanent Pacemaker Device Placement Date:: 2006 Past Psychological History: Anxiety Smoking Status: Never smoker Past Alcohol Use History: None Reported Past Drug Use History: None Reported - Past Family History Mother Family Medical History: Diabetes Mellitus, Hypertension, Renal Disease Father Additional Family Medical History / Comment(s): Father comitted suicide. Family Family Medical History: Coronary Artery Disease (CAD) Medications and Allergies Home Medications Medication Instructions Recorded Confirmed Type Allopurinol [Zyloprim] 100 mg PO DAILY@0800 02/03/19 05/15/19 History Aspirin [[address] Aspirin EC] 81 mg PO DAILY@1700 02/03/19 05/15/19 History Carbidopa/Levodopa [Sinemet 25-250 3 - 4 tab PO DAILY PRN 02/03/19 05/15/19 History mg] Escitalopram [Lexapro] 20 mg PO HS@2100 02/03/19 05/15/19 History Isosorbide Mononitrate ER [Imdur] 30 mg PO DAILY@0800 02/03/19 05/15/19 History Ferrous Sulfate [Iron] 325 mg PO DAILY@1700 03/01/19 05/15/19 History Nitroglycerin Sl Tabs [Nitrostat] 0.4 mg SUBLINGUAL Q5M PRN 03/01/19 05/15/19 History Omeprazole [PriLOSEC] 40 mg PO DAILY@0600 03/01/19 05/15/19 History rOPINIRole HCL [Requip] 5 mg PO QID 03/01/19 05/15/19 History Apixaban [Eliquis] 5 mg PO BID@0800,1700 05/15/19 05/15/19 History Atorvastatin [Lipitor] 40 mg PO HS@2100 05/15/19 05/15/19 History Bisacodyl [Dulcolax] 10 mg RECTAL DAILY PRN 05/15/19 05/15/19 History Gabapentin [Neurontin] 100 mg PO TID@0600,1400,2100 05/15/19 05/15/19 History HYDROcodone/APAP 10-325MG [Milaca 1 - 2 tab PO Q6H PRN 05/15/19 05/15/19 History 10-325] Magnesium Hydroxide [Milk of 7,200 mg PO ONCE PRN 05/15/19 05/15/19 History Magnesia Concentrate] Metoprolol Tartrate [Lopressor] 25 mg PO BID@0800,1700 05/15/19 05/15/19 History Modafinil [Provigil] 100 mg PO DAILY PRN 05/15/19 05/15/19 History Na Phos,M-B/Na Phos,Di-Ba [Fleet 133 ml RECTAL DAILY PRN 05/15/19 05/15/19 History Adult] Nystatin 500,000 unit PO QID 05/15/19 05/15/19 History Nystatin [Nystop] 1 applic TOPICAL DAILY PRN 05/15/19 05/15/19 History predniSONE See Taper PO DAILY@1200 05/15/19 05/15/19 History Allergies Allergy/AdvReac Type Severity Reaction Status Date / Time adhesive tape Allergy skin peels Verified 05/15/19 17:47 off Fish Containing Products Allergy Nausea Verified 05/15/19 17:47 [Fish] Sulfa (Sulfonamide Allergy Unknown Verified 05/15/19 17:47 Antibiotics) Physical Exam Vitals: Vital Signs Temp Pulse Pulse Resp BP Pulse Ox 05/17/19 07:35 97.8 F 73 14 119/76 96 05/16/19 20:50 76 05/16/19 20:44 74 05/16/19 15:00 97.8 F 74 18 125/75 98 Intake and Output 05/16/19 05/17/19 05/17/19 22:59 06:59 14:59 Output Total 650 400 Balance -650 -400 Output: Urine 650 400 Other: Voiding Method Diaper Diaper Incontinent Incontinent Results 05/17/19 07:23 05/17/19 07:23 CBC 05/17/19 Range/Units 07:23 WBC 7.7 (3.8-10.6) k/uL RBC 3.86 (3.80-5.40) m/uL Hgb 12.1 (11.4-16.0) gm/dL Hct 40.0 (34.0-46.0) % Plt Count 91 L (150-450) k/uL Comprehensive Metabolic Panel 05/17/19 Range/Units 07:23 Sodium 144 (137-145) mmol/L Potassium 3.6 (3.5-5.1) mmol/L Chloride 104 (98-107) mmol/L Carbon Dioxide 35 H (22-30) mmol/L BUN 48 H (7-17) mg/dL Creatinine 1.16 H (0.52-1.04) mg/dL Glucose 86 (74-99) mg/dL Calcium 8.8 (8.4-10.2) mg/dL Current Medications Generic Name Dose Route Start Last Admin Trade Name Freq PRN Reason Stop Dose Admin Acetaminophen 650 mg 05/15/19 20:06 05/17/19 09:08 Tylenol Tab PO 650 mg Q6HR PRN Administration Mild Pain or Fever > 100.5 Acetaminophen/Codeine Phosphate 1 each 05/15/19 20:06 Tylenol #3 PO Q4HR PRN Moderate Pain Hydrocodone Bitart/Acetaminophen 1 each 05/16/19 14:36 Milaca 10 PO Q6H PRN Pain Albuterol/Ipratropium 3 ml 05/16/19 16:00 05/17/19 08:59 Duoneb 0.5 Mg-3 Mg/3 Ml Soln INHALATION Not Given RT-QID HI Albuterol/Ipratropium 3 ml 05/16/19 14:40 Duoneb 0.5 Mg-3 Mg/3 Ml Soln INHALATION RT-QID PRN Shortness Of Breath Or Wheezing Allopurinol 100 mg 05/17/19 08:00 05/17/19 09:10 Zyloprim PO 100 mg DAILY@0800 [facility] Administration Apixaban 5 mg 05/16/19 17:00 05/17/19 09:10 Eliquis PO 5 mg BID@0800,1700 [facility] Administration Aspirin 81 mg 05/16/19 17:00 05/16/19 16:52 Aspirin PO 81 mg DAILY@1700 [facility] Administration Atorvastatin Calcium 40 mg 05/16/19 21:00 05/16/19 22:07 Lipitor PO 40 mg HS@2100 [facility] Administration Bisacodyl 10 mg 05/16/19 14:36 Dulcolax RECTAL DAILY PRN Constipation Carbidopa/Levodopa 3 each 05/16/19 14:36 Sinemet 25-250 PO DAILY PRN restless legs Escitalopram Oxalate 20 mg 05/16/19 21:00 05/16/19 22:07 Lexapro PO 20 mg HS@2100 [facility] Administration Ferrous Sulfate 325 mg 05/16/19 17:00 05/16/19 16:52 Feosol PO 325 mg DAILY@1700 [facility] Administration Furosemide 40 mg 05/17/19 09:08 05/17/19 09:22 Lasix PO 40 mg DAILY [facility] Administration Gabapentin 300 mg 05/16/19 22:00 05/17/19 09:09 Neurontin PO 300 mg TID [facility] Administration Hydromorphone HCl 0.5 mg 05/16/19 14:40 Dilaudid IVP Q6HR PRN Severe Pain Piperacillin Sod/Tazobactam 100 mls @ 25 mls/hr 05/16/19 16:00 05/17/19 09:10 Sod 3.375 gm/ Sodium Chloride IVPB 25 mls/hr Q8HR [facility] Administration Isosorbide Mononitrate 30 mg 05/17/19 08:00 05/17/19 09:09 Imdur PO 30 mg DAILY@0800 [facility] Administration Ketorolac Tromethamine 15 mg 05/15/19 20:06 05/17/19 06:00 Toradol IVP 05/20/19 20:07 15 mg Q6HR PRN Administration Moderate Pain Lorazepam 0.5 mg 05/15/19 20:06 05/16/19 22:08 Ativan IV 0.5 mg Q6HR PRN Administration Anxiety Magnesium Hydroxide 7,200 mg 05/16/19 14:36 Milk Of Magnesia PO ONCE PRN Constipation Metoprolol Tartrate 25 mg 05/16/19 17:00 05/17/19 09:09 Lopressor PO 25 mg BID@0800,1700 [facility] Administration Modafinil 100 mg 05/16/19 14:36 Provigil PO DAILY PRN SLEEPINESS Naloxone HCl 0.2 mg 05/15/19 20:06 Narcan IV Q2M PRN Opioid Reversal Nitroglycerin 0.4 mg 05/16/19 14:36 Nitrostat SUBLINGUAL Q5M PRN Chest Pain Nystatin 1 applic 05/16/19 14:36 Mycostatin Powder TOPICAL DAILY PRN GROIN,UNDER BREASTS Nystatin 500,000 unit 05/16/19 18:00 05/17/19 09:10 Mycostatin Oral Susp PO 500,000 unit QID [facility] Administration Pantoprazole Sodium 40 mg 05/17/19 06:00 05/17/19 05:58 Protonix PO 40 mg DAILY@0600 [facility] Administration Ropinirole HCl 4 mg 05/16/19 22:00 05/17/19 09:10 Requip PO 4 mg QID [facility] Administration Sodium Biphosphate/Sodium Phosphate 133 ml 05/16/19 14:36 Fleet Adult RECTAL DAILY PRN Constipation Intake and Output 05/16/19 05/17/19 05/17/19 22:59 06:59 14:59 Output Total 650 400 Balance -650 -400 Output: Urine 650 400 Other: Voiding Method Diaper Diaper Incontinent Incontinent 05/17/19 07:23 05/17/19 07:23
--- NOTE | 2019-05-17 12:42 | CT ---
EXAMINATION TYPE: CT brain wo con for TPA DATE OF EXAM: 05/17/2019 COMPARISON: Prior head CT 05/16/2019 HISTORY: altered mental status CT DLP: 2193 mGycm Automated exposure control for dose reduction was used. Helical imaging through the brain FINDINGS: Cortical atrophy is likely age-related. Periventricular white matter shows low attenuation. There is no hemorrhage or hydrocephalus. Calvarium is intact. Paranasal sinuses and mastoid air cells as visua lized are normal. Cerebral vascular calcifications are present. IMPRESSION: AGE-RELATED CHANGES OF ATROPHY AND PROBABLE CHRONIC SMALL VESSEL ISCHEMIA.
--- NOTE | 2019-05-17 13:21 | CT ---
EXAMINATION TYPE: CT abdomen pelvis wo con DATE OF EXAM: 05/17/2019 COMPARISON: CT 05/15/2019 HISTORY: back pain, abd pain CT DLP: 1285.4 mGycm Automated exposure control for dose reduction was used. TECHNIQUE: Helical acquisition of images from the lung bases through the pelvis. FINDINGS: The heart is enlarged, intracardiac lead present in the right ventricle. There is a stimula tor present in the right gluteal region, lead is coursing into the presacral region LUNG BASES: No significant abnormality is appreciated. AORTA: No significant abnormality is appreciated. LIVER/GB: Nodular contour of the liver suggests underlying cirrhosis, gallbladder is within normal li mits PANCREAS: Fatty replaced SPLEEN: Mildly enlarged ADRENALS: No significant abnormality is seen. KIDNEYS: Only the left kidney is identified REPRODUCTIVE ORGANS: No significant abnormality is seen. URINARY BLADDER: No significant abnormality is seen. BOWEL: Possible small duodenal diverticulum, diverticular changes associated with the sigmoid colon and descending colon. There is an umbilical hernia containing fat. FREE AIR: No Free Air is visible. ASCITES: None visible. PELVIC ADENOPATHY: None visualized. RETROPERITONEAL ADENOPATHY: No Retroperitoneal Adenopathy visible. OSSEOUS STRUCTURES: Degenerative disc disease, facet arthropathy changes are present especially in t he lower lumbar spine. IMPRESSION: DIVERTICULOSIS, CORRELATE FOR CIRRHOSIS. SPLENOMEGALY IS BORDERLINE. CARDIOMEGALY. SINGLE RIGHT KIDNE Y. NO SIGNIFICANT INTERVAL CHANGE COMPARED TO PREVIOUS EXAM.
[2019-05-17 14:01] LABS: Glucose,Whole Blood 86 mg/dL (75-99)
[2019-05-17 14:23] LABS: ABG Base Excess 7.7 mmol/L; ABG HCO3 32 mmol/L (21-25); ABG Oxygen Saturation 96.8 % (94-97); ABG PCO2 47 mmHg (35-45); ABG PH 7.44 (7.35-7.45); ABG PO2 87 mmHg (83-108); ABG TCO2 33 mmol/L (19-24); Allen Test Performed? Yes
[2019-05-17 14:26] LABS: Anisocytosis Slight; Basophils % (A) 0 %; Eosinophils # (A) 0.1 k/uL (0-0.7); Eosinophils % (A) 2 %; HCT 37.5 % (34.0-46.0); HGB 11.6 gm/dL (11.4-16.0); Hypochromasia Slight; Lymphocytes # (A) 1.4 k/uL (1.0-4.8); Lymphocytes % (A) 20 %; MCH 32.7 pg (25.0-35.0); MCV 105.5 fL (80.0-100.0); Macrocytosis Moderate; Mean Platelet Volume 10.3; Monocytes # (A) 0.4 k/uL (0-1.0); Monocytes % (A) 5 %; Neutrophils # (A) 4.9 k/uL (1.3-7.7); Neutrophils % (A) 71 %; RBC 3.56 m/uL (3.80-5.40)
[2019-05-17 14:39] LABS: Platelet Count 95 k/uL (150-450)
--- NOTE | 2019-05-17 14:39 | XR ---
EXAMINATION TYPE: XR chest 1V portable DATE OF EXAM: 05/17/2019 CLINICAL HISTORY: Difficulty breathing progress study. TECHNIQUE: Single AP portable upright view of the chest is obtained. COMPARISON: Chest x-ray from one day earlier and older studies. FINDINGS: Cardiomegaly with dual lead pacemaker and atherosclerotic thoracic aorta are redemonstrate d. Low lung volumes remain present. There is chronic parenchymal change bilaterally without suspiciou s new focal airspace opacity, pleural effusion, or pneumothorax. Osseous structures are intact. IMPRESSION: Overall stable findings, chronic parenchymal changes with low lung volumes and cardiome [place] without acute pulmonary process.
[2019-05-17 14:41] LABS: D-Dimer 0.84 mg/L FEU (<0.60); INR 1.1 (<1.2); Partial Thromboplastin Time 26.3 sec (22.0-30.0); Prothrombin Time 11.5 sec (9.0-12.0)
[2019-05-17 14:53] LABS: Albumin 2.7 g/dL (3.5-5.0); Calcium 8.3 mg/dL (8.4-10.2); Potassium 4.1 mmol/L (3.5-5.1); Total Bilirubin 0.6 mg/dL (0.2-1.3); Total Protein 5.6 g/dL (6.3-8.2)
[2019-05-17] MEDS ORDERED: SODIUM CHLORIDE 0.9% 250 ML IV SCH (15:45)
[2019-05-17 16:44] LABS: Glucose,Whole Blood 97 mg/dL (75-99)
--- NOTE | 2019-05-17 16:52 | P.CNPUL ---
History of Present Illness Consult date: 05/17/19 Requesting physician: Ashwin Mora Reason for consult: other (Critical care management) Chief complaint: Altered mental status, back pain, agitation, delirium History of present illness: This is a 69-year-old female patient who follows with Dr. Weiss as her primary care physician. She has a history of atrial fibrillation, angina, congestive heart failure, fibromyalgia, GERD, osteoarthritis, obstructive sleep apnea not currently using CPAP, narcolepsy, COPD, panic low back pain which radiates down bilateral legs, lumbar disc disease, spondylosis, compression fractions, renal cancer with left nephrectomy in 1971, coronary artery disease with previous coronary artery bypass grafting, permanent pacemaker implantation. She presented here to the emergency room yesterday with worsening low back pain and hip pain. He is also having ongoing issues with altered mental status. His been seen and evaluated by psychiatric services, neurology services, orthopedic services, cardiology services. Earlier today she was up in a chair at the bedside and when that staff was returned to bed she went unresponsive. Code stroke was called. Computed tomography scan of the brain revealed no acute intracranial process. Computed tomography scan of the abdomen and pelvis revealed evidence of diverticulosis, neurosis, borderline splenomegaly. His x- ray reveals stable findings with chronic parenchymal changes with low lung volumes and cardiomegaly but no acute pulmonary process. She remains somewhat unresponsive and was transferred here to the intensive care unit. We are consulted for ICU management. She currently she is difficult to arouse. Arterial blood gases revealed a pO2 of 87, pCO2 of 47, pH 7.44 40% FiO2. White count 7.0. Hemoglobin 11.6. Platelet count 95,000. Creatinine 1.34. Blood glucose 120. She is afebrile. Maintaining O2 saturations in the 90s on room air. She's hemodynamically stable. He has been seen and evaluated by neurology here in the ICU today. Review of Systems ROS unobtainable: due to mental status Past Medical History Past Medical History: Atrial Fibrillation, Cancer, Chest Pain / Angina, Heart Failure, COPD, Fibromyalgia, GERD/Reflux, Myocardial Infarction (SC), Osteoarthritis (OA), Pneumonia, Sleep Apnea/CPAP/BIPAP Additional Past Medical History / Comment(s): Chronic low back pain which radiates down bilateral legs, lumbar disc disease, spondylosis, lumbar compression fracture, myofascial pain syndrome, generalized arthritis, m igraines, gout bilateral feet, osteoporosis, frequent falls, chronic urine retention/incontinence/has bladder stimulator, 1972 R renal cancer with nephrectomy, anemia, cardiac murmur, home oxygen at 2-3L/NC ATC, KOFFI but device is broken, vertigo, narcolepsy, IBS, Last Myocardial Infarction Date:: 2004 History of Any Multi-Drug Resistant Organisms: None Reported Past Surgical History: Appendectomy, Coronary Bypass/CABG, Heart Catheterization, Orthopedic Surgery, Pacemaker Additional Past Surgical History / Comment(s): Rt nephrectomy, lumber epidural injections-last one 03/07/19, bladder stimulator, fabricio carpal tunnel releases, surgery on left hand, 1 vessel CABG 2004, fabricio cataracts with lens implants, colonoscopy. Past Anesthesia/Blood Transfusion Reactions: Previous Problems w/ Anesthesia Additional Past Anesthesia/Blood Transfusion Reaction / Comment(s): Pt has received blood in past without reaction. Type of Cardiac Device: Permanent Pacemaker Device Placement Date:: 2006 Past Psychological History: Anxiety Smoking Status: Never smoker Past Alcohol Use History: None Reported Past Drug Use History: None Reported - Past Family History Mother Family Medical History: Diabetes Mellitus, Hypertension, Renal Disease Father Additional Family Medical History / Comment(s): Father comitted suicide. Family Family Medical History: Coronary Artery Disease (CAD) Medications and Allergies Home Medications Medication Instructions Recorded Confirmed Type Allopurinol [Zyloprim] 100 mg PO DAILY@0800 02/03/19 05/15/19 History Aspirin [[place] Aspirin EC] 81 mg PO DAILY@1700 02/03/19 05/15/19 History Carbidopa/Levodopa [Sinemet 25-250 3 - 4 tab PO DAILY PRN 02/03/19 05/15/19 History mg] Escitalopram [Lexapro] 20 mg PO HS@2100 02/03/19 05/15/19 History Isosorbide Mononitrate ER [Imdur] 30 mg PO DAILY@0800 02/03/19 05/15/19 History Ferrous Sulfate [Iron] 325 mg PO DAILY@1700 03/01/19 05/15/19 History Nitroglycerin Sl Tabs [Nitrostat] 0.4 mg SUBLINGUAL Q5M PRN 03/01/19 05/15/19 History Omeprazole [PriLOSEC] 40 mg PO DAILY@0600 03/01/19 05/15/19 History rOPINIRole HCL [Requip] 5 mg PO QID 03/01/19 05/15/19 History Apixaban [Eliquis] 5 mg PO BID@0800,1700 05/15/19 05/15/19 History Atorvastatin [Lipitor] 40 mg PO HS@2100 05/15/19 05/15/19 History Bisacodyl [Dulcolax] 10 mg RECTAL DAILY PRN 05/15/19 05/15/19 History Gabapentin [Neurontin] 100 mg PO TID@0600,1400,2100 05/15/19 05/15/19 History HYDROcodone/APAP 10-325MG [[place] 1 - 2 tab PO Q6H PRN 05/15/19 05/15/19 History 10-325] Magnesium Hydroxide [Milk of 7,200 mg PO ONCE PRN 05/15/19 05/15/19 History Magnesia Concentrate] Metoprolol Tartrate [Lopressor] 25 mg PO BID@0800,1700 05/15/19 05/15/19 History Modafinil [Provigil] 100 mg PO DAILY PRN 05/15/19 05/15/19 History Na Phos,M-B/Na Phos,Di-Ba [[place] 133 ml RECTAL DAILY PRN 05/15/19 05/15/19 History Adult] Nystatin 500,000 unit PO QID 05/15/19 05/15/19 History Nystatin [Nystop] 1 applic TOPICAL DAILY PRN 05/15/19 05/15/19 History predniSONE See Taper PO DAILY@1200 05/15/19 05/15/19 History Allergies Allergy/AdvReac Type Severity Reaction Status Date / Time adhesive tape Allergy skin peels Verified 05/15/19 17:47 off Fish Containing Products Allergy Nausea Verified 05/15/19 17:47 [Fish] Sulfa (Sulfonamide Allergy Unknown Verified 05/15/19 17:47 Antibiotics) Physical Exam Vitals: Vital Signs Temp Pulse Pulse Pulse Resp BP BP 05/17/19 15:00 62 17 96/52 05/17/19 14:30 64 28 H 96/52 05/17/19 14:10 97.6 F 60 22 106/56 05/17/19 13:26 73 109/71 05/17/19 13:09 69 102/54 05/17/19 11:55 62 05/17/19 11:51 69 05/17/19 11:50 74 64/35 05/17/19 11:33 69 112/53 05/17/19 07:35 97.8 F 73 14 119/76 05/16/19 20:50 76 05/16/19 20:44 74 BP Pulse Ox 05/17/19 15:00 94 L 05/17/19 14:30 05/17/19 14:10 95 05/17/19 13:26 05/17/19 13:09 05/17/19 11:55 89/51 05/17/19 11:51 78/50 05/17/19 11:50 05/17/19 11:33 97 05/17/19 07:35 96 05/16/19 20:50 05/16/19 20:44 Intake and Output 05/17/19 05/17/19 05/17/19 06:59 14:59 22:59 Output Total 400 35 Balance -400 -35 Output: Urine 400 35 Other: Voiding Method Diaper Indwelling Catheter Incontinent GENERAL EXAM: Lethargic 69-year-old obese female patient. On 3 L nasal cannula. HEAD: Normocephalic. EYES: Normal reaction of pupils, equal size. NOSE: Clear with pink turbinates. THROAT: No erythema or exudates. NECK: No masses, no JVD. CHEST: No chest wall deformity. LUNGS: Equal air entry with no crackles, wheeze, rhonchi or dullness. CVS: S1 and S2 normal with no audible murmur, regular rhythm. ABDOMEN: No hepatosplenomegaly, normal bowel sounds, no guarding or rigidity. SPINE: No scoliosis or deformity SKIN: No rashes CENTRAL NERVOUS SYSTEM: Difficult to arouse and assessed. EXTREMITIES: There is no peripheral edema. No clubbing, no cyanosis. Peripheral pulses are intact. Results - Laboratory Findings CBC and BMP: 05/17/19 14:18 05/17/19 14:18 ABG ABG pH 7.44 (7.35-7.45) 05/17/19 14:21 ABG pCO2 47 mmHg (35-45) H 05/17/19 14:21 ABG pO2 87 mmHg (83-108) 05/17/19 14:21 ABG O2 Saturation 96.8 % (94-97) 05/17/19 14:21 PT/INR, D-dimer PT 11.5 sec (9.0-12.0) 05/17/19 14:18 INR 1.1 (<1.2) 05/17/19 14:18 D-Dimer 0.84 mg/L FEU (<0.60) H 05/17/19 14:18 Abnormal lab findings: Abnormal Labs 05/15/19 05/15/19 05/15/19 16:02 16:02 16:10 RBC 3.58 L MCV 103.1 H MCHC RDW Plt Count 86 L Lymphocytes # 0.7 L D-Dimer ABG pCO2 ABG HCO3 ABG Total CO2 Chloride 108 H Carbon Dioxide 31 H BUN 47 H Creatinine Glucose 129 H POC Glucose (mg/dL) Calcium AST ALT 8 L Alkaline Phosphatase 190 H Total Protein 5.9 L Albumin 2.9 L Urine Protein Trace H Urine Ketones Trace H Urine Blood Small H Ur Leukocyte Esterase Small H Urine RBC 17 H Urine Mucus Rare H Urine Opiates Screen U Tricyclic Antidepress U Benzodiazepines Scrn 05/15/19 05/16/19 05/16/19 16:10 06:56 11:37 RBC MCV MCHC RDW Plt Count Lymphocytes # D-Dimer ABG pCO2 ABG HCO3 ABG Total CO2 Chloride Carbon Dioxide BUN Creatinine Glucose POC Glucose (mg/dL) 114 H 100 H Calcium AST ALT Alkaline Phosphatase Total Protein Albumin Urine Protein Urine Ketones Urine Blood Ur Leukocyte Esterase Urine RBC Urine Mucus Urine Opiates Screen Detected H U Tricyclic Antidepress Detected H U Benzodiazepines Scrn Detected H 05/16/19 05/16/19 05/17/19 17:03 20:48 07:23 RBC MCV 103.5 H MCHC 30.3 L RDW 16.0 H Plt Count 91 L Lymphocytes # D-Dimer ABG pCO2 ABG HCO3 ABG Total CO2 Chloride Carbon Dioxide BUN Creatinine Glucose POC Glucose (mg/dL) 141 H 120 H Calcium AST ALT Alkaline Phosphatase Total Protein Albumin Urine Protein Urine Ketones Urine Blood Ur Leukocyte Esterase Urine RBC Urine Mucus Urine Opiates Screen U Tricyclic Antidepress U Benzodiazepines Scrn 05/17/19 05/17/19 05/17/19 07:23 11:24 14:18 RBC 3.56 L MCV 105.5 H MCHC RDW 16.0 H Plt Count 95 L Lymphocytes # D-Dimer ABG pCO2 ABG HCO3 ABG Total CO2 Chloride Carbon Dioxide 35 H BUN 48 H Creatinine 1.16 H Glucose POC Glucose (mg/dL) 137 H Calcium AST ALT Alkaline Phosphatase Total Protein Albumin Urine Protein Urine Ketones Urine Blood Ur Leukocyte Esterase Urine RBC Urine Mucus Urine Opiates Screen U Tricyclic Antidepress U Benzodiazepines Scrn 05/17/19 05/17/19 05/17/19 14:18 14:18 14:21 RBC MCV MCHC RDW Plt Count Lymphocytes # D-Dimer 0.84 H ABG pCO2 47 H ABG HCO3 32 H ABG Total CO2 33 H Chloride Carbon Dioxide 32 H BUN 53 H Creatinine 1.34 H Glucose 120 H POC Glucose (mg/dL) Calcium 8.3 L AST 57 H ALT Alkaline Phosphatase 143 H Total Protein 5.6 L Albumin 2.7 L Urine Protein Urine Ketones Urine Blood Ur Leukocyte Esterase Urine RBC Urine Mucus Urine Opiates Screen U Tricyclic Antidepress U Benzodiazepines Scrn - Diagnostic Findings Chest x-ray: image reviewed Assessment and Plan Assessment: Impression: #1 Altered mental status of unclear etiology. Computed tomography scan of the brain reveals age-related changes of atrophy and probable chronic small vessel ischemia. Neurology is on the case. #2 Narcolepsy, has not received Provigil this admission. #3 Chronic pain syndrome. #4 Delirium and agitation, being seen by psychiatric services. #5 Obstructive sleep apnea not utilizing CPAP in the outpatient setting, #6 Chronic obstructive pulmonary disease currently inactive and stable. #7 Chronic hypoxic respiratory failure on oxygen at 2 L/m. #8 Coronary artery disease with previous coronary artery bypass grafting. #9 Atrial fibrillation. #10 Permanent pacemaker implantation. #11 History of congestive heart failure. #12 Fibromyalgia. #13 History of right nephrectomy secondary to renal cell carcinoma #14 History of migraines. #15 History of bladder stimulator. #16 Overall poor functional performance based on the above-mentioned multiple comorbidities. Plan: The patient was seen and evaluated by Dr. James. No significant pulmonary abnormalities to explain her altered mental status. We'll continue to monitor her closely here in the intensive care unit. Continue with neuro evaluations and frequent checks. We'll continue to follow make further recommendations based on her clinical status. I, the cosigning physician, performed a history & physical examination of the patient. Lungs sounds are clear. Maintaining good O2 saturations in the 90s on 3 L/m per nasal cannula. I discussed the assessment and plan of care with my nurse practitioner, Pretty Arthur. I attest to the above note as dictated by her.
[2019-05-17] MEDS ORDERED: SODIUM CHLORIDE 0.9% 500 ML 500 ML IV ONE (16:54)
[2019-05-17] MEDS: SODIUM CHLORIDE 0.9% 1,000 ML IV SCH (16:55)
[2019-05-17] MEDS: ASPIRIN 81 MG PO SCH (17:20)
[2019-05-17] MEDS: FERROUS SULFATE 325 MG TAB PO SCH (17:20)
--- NOTE | 2019-05-17 17:21 | PN ---
PROGRESS NOTE The patient is being seen in the ICU. She is drowsy but arousable and will follow commands. She currently denies headache. Rapid Response was called on the patient earlier today, as she had reduced level of responsiveness and was hypotensive. Even after a fluid bolus, the patient did not significantly improve in her level of alertness, and as a result a clinical "code stroke" was called. The patient was sent for a STAT CT of the brain, which was unchanged compared to a CT completed yesterday. The patient has been moving all extremities symmetrically and no seizure activity has been witnessed. CURRENT MEDICATIONS: 1. Tylenol. 2. Tylenol #3. 3. DuoNeb. 4. Zyloprim. 5. Eliquis. 6. Aspirin 81 mg daily. 7. Lipitor. 8. Dulcolax. 9. Lexapro. 10.Feosol. 11.Lasix. 12.Neurontin 300 mg t.i.d. 13.[place]. 14.Dilaudid p.r.n. 15.Imdur. 16.Toradol. 17.Ativan p.r.n. 18.Milk of Magnesia. 19.Lopressor. 20.Provigil. 21.Nitrostat. 22.Protonix. 23.Requip 4 mg q.i.d. (reduced from home dose of 5 mg q.i.d.). PHYSICAL EXAMINATION: The patient is lying in bed in the ICU. She is morbidly obese, sleeping at the time of the evaluation but would arouse, briefly make eye contact with the examiner, then drifted back off to sleep. VITAL SIGNS: Blood pressure is 86/49 with pulse of 62, respiratory rate 17, temperature 97.6. HIGHER CORTICAL FUNCTION, MENTAL STATUS: The patient was alert and oriented to self. She would not answer other orientation questions. She had very little verbal output, but when she did speak, this was not clearly dysarthric. Speech was fluent for the little she produced. CRANIAL NERVES: The patient does not consistently blink to threat. Pupils are equal and reactive to light. Oculocephalic reflex was intact. Corneal reflex and nasal tickle are intact. No clear facial asymmetry. Palate was in midline. The patient shrugged her shoulders equally and protruded her tongue in the midline. MOTOR EXAMINATION: The patient lifted her arms off the bed in a symmetric fashion and lowered them equally. There was normal bulk and tone is noted, no involuntary movements are noted. She would not cooperate with formal muscle strength testing but did wiggle her toes equally as well. SENSORY: Patient withdrew all extremities to noxious stimulation. Plantar responses flexor bilaterally. Dixon's absent. COORDINATION: Patient would not cooperate. IMPRESSION: 1. Encephalopathy in the setting of polypharmacy, prerenal azotemia, and recent grief reaction/depression. 2. The patient became unresponsive earlier today with hypotension and mild hypercarbia on ABG. No seizure activity was witnessed and neurologic examination remains nonfocal. Patient had follow-up CT scan of the brain, which was unrevealing. 3. Intractable back/lower extremity pain with history of L1 compression fracture, fibromyalgia, osteoarthritis, neuropathy and restless legs syndrome. 4. Refractory restless legs syndrome with augmentation. 5. History of narcolepsy, maintained on Provigil. RECOMMENDATIONS: 1. Case was discussed with nursing staff. 2. TSH and ammonia level were normal. 3. Hydration per primary service. 4. Would minimize sedative/narcotic medication if possible. I will discontinue Sinemet. 5. The patient is not a candidate for MRI due to presence of an incompatible pacemaker. 6. Will follow with you. Thank you kindly for the opportunity to participate in the care of your patient. JUAN / MINAN: [id number] / MTDD
--- NOTE | 2019-05-17 18:46 | PN ---
PROGRESS NOTE DATE OF SERVICE: 05/17/2019 This 69-year-old woman who was admitted with back pain, abdominal pain and shortness of breath is being closely monitored at this time. The patient apparently took some medication this morning and subsequently had some change in mental status. CODE STROKE was called. CT scan is negative at this time. The patient also had possibly pneumonia and COPD, CHF, and other medical issues. Multiple consultants are following the patient closely. Neurology evaluation is in progress. CODE STROKE has been called. Past medical history reviewed. Review of systems could not be taken because of the patient's change in mental status. CURRENT MEDICATIONS: Reviewed. They include: 1. Tylenol 650 q.6 p.r.n. 2. Tylenol #3. 3. [place] 10 mg q.6 p.r.n. 4. DuoNeb q.i.d. and p.r.n. 5. Zyloprim 100 mg p.o. daily. 6. Eliquis 5 mg p.o. b.i.d. 7. Aspirin 81 mg daily. 8. Lipitor 40 mg at bedtime. 9. Dulcolax 10 mg. 10.Lexapro 20 mg at bedtime. 11.Iron sulfate. 12.Lasix 40 mg p.o. daily. 13.Neurontin 300 mg p.o. t.i.d. 14.Dilaudid p.r.n. 15.Imdur 30 mg p.o. daily. 16.Toradol 15 mg IV q.6 p.r.n. 17.Milk of Magnesia. 18.Lopressor 25 mg p.o. b.i.d. 19.Provigil 100 mg p.o. daily. 20.Narcan. 21.Nitrostat. 22.Protonix. 23.Zosyn 3.375 IV q.8. 24.Requip. PHYSICAL EXAMINATION: Patient is stuporous. Pulse is 60, blood pressure 106/56, respiration 22, temperature 97.6, pulse ox 95% on room air. HEENT: Conjunctivae normal. Oral mucosa dry. NECK: No jugular venous distention. No carotid bruit. No lymph node enlargement. CARDIOVASCULAR SYSTEM: S1, S2 muffled. No S3. No S4. RESPIRATORY SYSTEM: Breath sounds diminished at the bases. A few scattered rhonchi and crackles. ABDOMEN: Soft, non-tender. No mass palpable. LEGS: No edema. No swelling. NERVOUS SYSTEM: Higher functions as mentioned earlier. Full neurological exam is not possible because of extreme drowsiness at this time. SKIN: No ulcer, rash, bleeding. JOINTS: No active deforming arthropathy. LABS: Labs at this time show WBC 7, hemoglobin 11.6, MCV 105.6. D-dimer is 0.084. Otherwise, ABGs noted; pCO2 is 47. Creatinine is 1.34, albumin 2.7. ASSESSMENT: 1. Shortness of breath with possible bibasilar pneumonia, possibly gram-negative sepsis, present on admission. 2. Congestive heart failure, acute exacerbation, with acute on chronic diastolic dysfunction, present on admission. 3. Acute on chronic back pain secondary to degenerative joint disease. 4. Change in mental status, metabolic encephalopathy, multifactorial; rule out acute stroke. 5. History of atrial fibrillation. 6. History of chronic obstructive pulmonary disease. 7. History of congestive heart failure with chronic diastolic dysfunction, ejection fraction 50% to 55%. 8. History of fibromyalgia. 9. Gastroesophageal reflux disease. 10.History of degenerative joint disease. 11.Sleep apnea. 12.History of chronic low back pain. 13.History of osteoporosis. 14.History of frequent falls. 15.History of renal cancer and nephrectomy. 16.History of pain stimulator. 17.History of coronary artery disease, coronary artery bypass grafting. 18.History of pacemaker. 19.History of anxiety. 20.Obesity with body mass index of 42. 21.Gait dysfunction. 22.FULL CODE. RECOMMENDATIONS AND DISCUSSION: In this 69-year-old woman who presented with multiple medical issues, at this time we will monitor the patient closely, continue the current management, continue symptomatic treatment. Will optimize bronchodilator treatment. Continue to monitor. Monitor the labs. Will continue with broad-spectrum IV antibiotics. Will transfer the patient to ICU with consultation to Dr. James. Neurology has been consulted. Cardiology is also consulted for CHF. Two-D echo noted. Prognosis guarded because of multiple complex medical issues. Further recommendations to follow. MMODL / IJN: [id number] /
[2019-05-17] MEDS: ATORVASTATIN 40 MG TAB PO SCH (20:38)
[2019-05-17] MEDS: ESCITALOPRAM 20 MG TAB PO SCH (20:38)
[2019-05-17 20:50] LABS: Glucose,Whole Blood 255 mg/dL (75-99)
[2019-05-17] MEDS: INSULIN ASPART (NovoLOG) 100 UNIT/ML VIAL SQ SCH (21:36)
[2019-05-17 21:49] LABS: Glucose,Whole Blood 166 mg/dL (75-99)
--- NOTE | 2019-05-17 23:41 | P.CONS ---
History of Present Illness - Reason for Consult Consult date: 05/17/19 - Chief Complaint delirium - History of Present Illness 69-year-old female who has multiple medical issues that includes cardiovascular disease including cardiac dysrhythmia with atrial fibrillation, congestive heart failure, COPD, fibromyalgia and history of obstructive sleep apnea. Apparently she does not wear her CPAP device and has difficulty with narcolepsy and this is treated. The patient presents to Hospital with alteration of her mental status and delirium. She has been seen by neurology. She also had significant complaints of severe pain in her admission. She follows with orthopedic spine in the outpatient setting in an ongoing basis. 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 In February appears that she had the start of a workup there is no evidence of abnormality on bone scan as far as metastatic disease. However she appeared to have evidence of paraproteinemia, with positive lambda bands. She was seen by hematology oncology during that stay in follow-up is not clear at this time. There is no notation of any fevers, chills or rigors. The patient herself is really not conversational and it's difficult to elucidate other significant complaints at this time. Review of Systems ROS unobtainable: due to mental status Past Medical History Past Medical History: Atrial Fibrillation, Cancer, Chest Pain / Angina, Heart F ailure, COPD, Fibromyalgia, GERD/Reflux, Myocardial Infarction (DC), Osteoarthritis (OA), Pneumonia, Sleep Apnea/CPAP/BIPAP Additional Past Medical History / Comment(s): Chronic low back pain which radiates down bilateral legs, lumbar disc disease, spondylosis, lumbar compre ssion fracture, myofascial pain syndrome, generalized arthritis, migraines, gout bilateral feet, osteoporosis, frequent falls, chronic urine retention/incontinence/has bladder stimulator, 1971 R renal cancer with nephrectomy, anemia, cardiac murmur, home oxygen at 2-3L/NC ATC, KOFFI but device is broken, vertigo, narcolepsy, IBS, Last Myocardial Infarction Date:: 2004 History of Any Multi-Drug Resistant Organisms: None Reported Past Surgical History: Appendectomy, Coronary Bypass/CABG, Heart Catheterization, Orthopedic Surgery, Pacemaker Additional Past Surgical History / Comment(s): Rt nephrectomy, lumber epidural injections-last one 03/07/19, bladder stimulator, fabricio carpal tunnel releases, luz rgery on left hand, 1 vessel CABG 2004, fabricio cataracts with lens implants, colonoscopy. Past Anesthesia/Blood Transfusion Reactions: Previous Problems w/ Anesthesia Additional Past Anesthesia/Blood Transfusion Reaction / Comm: Pt has received blood in past without reaction. Type of Cardiac Device: Permanent Pacemaker Device Placement Date:: 2006 Past Psychological History: Anxiety Smoking Status: Never smoker Past Alcohol Use History: None Reported Past Drug Use History: None Reported - Past Family History Mother Family Medical History: Diabetes Mellitus, Hypertension, Renal Disease Father Additional Family Medical History / Comment(s): Father comitted suicide. Family Family Medical History: Coronary Artery Disease (CAD) Medications and Allergies Home Medications and Allergies Comment(s): Current Medications Acetaminophen (Tylenol Tab) 650 mg PO Q6HR PRN PRN Reason: Mild Pain or Fever > 100.5 Last Admin: 05/17/19 09:08 Dose: 650 mg Documented by: Acetaminophen/Codeine Phosphate (Tylenol #3) 1 each PO Q4HR PRN PRN Reason: Moderate Pain Hydrocodone Bitart/Acetaminophen ([place] 10) 1 each PO Q6H PRN PRN Reason: Pain Albuterol/Ipratropium (Duoneb 0.5 Mg-3 Mg/3 Ml Soln) 3 ml INHALATION RT-QID [facility] Last Admin: 05/17/19 19:43 Dose: 3 ml Documented by: Albuterol/Ipratropium (Duoneb 0.5 Mg-3 Mg/3 Ml Soln) 3 ml INHALATION RT-QID PRN PRN Reason: Shortness Of Breath Or Wheezing Allopurinol (Zyloprim) 100 mg PO DAILY@0800 [facility] Last Admin: 05/17/19 09:10 Dose: 100 mg Documented by: Apixaban (Eliquis) 5 mg PO BID@0800,1700 [facility] Last Admin: 05/17/19 17:20 Dose: 5 mg Documented by: Aspirin (Aspirin) 81 mg PO DAILY@1700 [facility] Last Admin: 05/17/19 17:20 Dose: 81 mg Documented by: Atorvastatin Calcium (Lipitor) 40 mg PO HS@2100 [facility] Last Admin: 05/17/19 20:38 Dose: 40 mg Documented by: Bisacodyl (Dulcolax) 10 mg RECTAL DAILY PRN PRN Reason: Constipation Escitalopram Oxalate (Lexapro) 20 mg PO HS@2100 [facility] Last Admin: 05/17/19 20:38 Dose: 20 mg Documented by: Ferrous Sulfate (Feosol) 325 mg PO DAILY@1700 [facility] Last Admin: 05/17/19 17:20 Dose: 325 mg Documented by: Furosemide (Lasix) 40 mg PO DAILY [facility] Last Admin: 05/17/19 09:22 Dose: 40 mg Documented by: Gabapentin (Neurontin) 300 mg PO TID [facility] Last Admin: 05/17/19 20:37 Dose: 300 mg Documented by: Hydromorphone HCl (Dilaudid) 0.5 mg IVP Q6HR PRN PRN Reason: Severe Pain Piperacillin Sod/Tazobactam (Sod 3.375 gm/ Sodium Chloride) 100 mls @ 25 mls/hr IVPB Q8HR [facility] Last Admin: 05/17/19 16:55 Dose: 25 mls/hr Documented by: Sodium Chloride (Saline 0.9%) 1,000 mls @ 100 mls/hr IV .Q10H [facility] Last Admin: 05/17/19 16:55 Dose: 100 mls/hr Documented by: Insulin Aspart (Novolog) 0 unit SQ [facility]; Protocol Last Admin: 05/17/19 21:36 Dose: Not Given Documented by: Isosorbide Mononitrate (Imdur) 30 mg PO DAILY@0800 [facility] Last Admin: 05/17/19 09:09 Dose: 30 mg Documented by: Ketorolac Tromethamine (Toradol) 15 mg IVP Q6HR PRN PRN Reason: Moderate Pain Stop: 05/20/19 20:07 Last Admin: 05/17/19 06:00 Dose: 15 mg Documented by: Lorazepam (Ativan) 0.5 mg IV Q6HR PRN PRN Reason: Anxiety Last Admin: 05/16/19 22:08 Dose: 0.5 mg Documented by: Magnesium Hydroxide (Milk Of Magnesia) 7,200 mg PO ONCE PRN PRN Reason: Constipation Metoprolol Tartrate (Lopressor) 25 mg PO BID@0800,1700 [facility] Last Admin: 05/17/19 17:08 Dose: Not Given Documented by: Modafinil (Provigil) 100 mg PO DAILY [facility] Naloxone HCl (Narcan) 0.2 mg IV Q2M PRN PRN Reason: Opioid Reversal Nitroglycerin (Nitrostat) 0.4 mg SUBLINGUAL Q5M PRN PRN Reason: Chest Pain Nystatin (Mycostatin Powder) 1 applic TOPICAL DAILY PRN PRN Reason: GROIN,UNDER BREASTS Nystatin (Mycostatin Oral Susp) 500,000 unit PO QID [facility] Last Admin: 05/17/19 20:38 Dose: 500,000 unit Documented by: Pantoprazole Sodium (Protonix) 40 mg PO DAILY@0600 [facility] Last Admin: 05/17/19 05:58 Dose: 40 mg Documented by: Ropinirole HCl (Requip) 4 mg PO QID [facility] Last Admin: 05/17/19 20:37 Dose: 4 mg Documented by: Sodium Biphosphate/Sodium Phosphate (Fleet Adult) 133 ml RECTAL DAILY PRN PRN Reason: Constipation Home Medications Medication Instructions Recorded Confirmed Type Allopurinol [Zyloprim] 100 mg PO DAILY@0800 02/03/19 05/15/19 History Aspirin [[place] Aspirin EC] 81 mg PO DAILY@17002/03/19 05/15/19 History Carbidopa/Levodopa [Sinemet 25-250 3 - 4 tab PO DAILY PRN 02/03/19 05/15/19 History mg] Escitalopram [Lexapro] 20 mg PO HS@2100 02/03/19 05/15/19 History Isosorbide Mononitrate ER [Imdur] 30 mg PO DAILY@0800 02/03/19 05/15/19 History Ferrous Sulfate [Iron] 325 mg PO DAILY@1700 03/01/19 05/15/19 History Nitroglycerin Sl Tabs [Nitrostat] 0.4 mg SUBLINGUAL Q5M PRN 03/01/19 05/15/19 History Omeprazole [PriLOSEC] 40 mg PO DAILY@0600 03/01/19 05/15/19 History rOPINIRole HCL [Requip] 5 mg PO QID 03/01/19 05/15/19 History Apixaban [Eliquis] 5 mg PO BID@0800,1700 05/15/19 05/15/19 History Atorvastatin [Lipitor] 40 mg PO HS@2100 05/15/19 05/15/19 History Bisacodyl [Dulcolax] 10 mg RECTAL DAILY PRN 05/15/19 05/15/19 History Gabapentin [Neurontin] 100 mg PO TID@06,1400,2100 05/15/19 05/15/19 History HYDROcodone/APAP 10-325MG [[place] 1 - 2 tab PO Q6H PRN 05/15/19 05/15/19 History 10-325] Magnesium Hydroxide [Milk of 7,200 mg PO ONCE PRN 05/15/19 05/15/19 History Magnesia Concentrate] Metoprolol Tartrate [Lopressor] 25 mg PO BID@0800,1700 05/15/19 05/15/19 History Modafinil [Provigil] 100 mg PO DAILY PRN 05/15/19 05/15/19 History Na Phos,M-B/Na Phos,Di-Ba [Fleet 133 ml RECTAL DAILY PRN 05/15/19 05/15/19 History Adult] Nystatin 500,000 unit PO QID 05/15/19 05/15/19 History Nystatin [Nystop] 1 applic TOPICAL DAILY PRN 05/15/19 05/15/19 History predniSONE See Taper PO DAILY@1200 05/15/19 05/15/19 History Allergies Allergy/AdvReac Type Severity Reaction Status Date / Time adhesive tape Allergy skin peels Verified 05/15/19 17:47 off Fish Containing Products Allergy Nausea Verified 05/15/19 17:47 [Fish] Sulfa (Sulfonamide Allergy Unknown Verified 05/15/19 17:47 Antibiotics) Physical Exam Vitals: Vital Signs Temp Pulse Pulse Pulse Resp BP BP 05/17/19 22:30 62 20 99/72 05/17/19 22:00 66 20 94/57 05/17/19 21:00 65 20 120/71 05/17/19 20:30 78 17 121/97 05/17/19 20:00 98.5 F 72 73 20 106/53 05/17/19 19:52 72 05/17/19 19:43 66 05/17/19 19:00 60 18 91/47 05/17/19 18:30 62 17 110/62 05/17/19 18:00 61 24 123/96 05/17/19 17:30 65 24 94/68 05/17/19 17:00 67 14 97/54 05/17/19 16:30 60 14 102/68 05/17/19 16:00 98.4 F 61 23 86/49 05/17/19 15:30 60 21 115/58 05/17/19 15:00 62 17 96/52 05/17/19 14:30 64 28 H 96/52 05/17/19 14:10 97.6 F 60 22 106/56 05/17/19 13:26 73 109/71 05/17/19 13:09 69 102/54 05/17/19 11:55 62 05/17/19 11:51 69 05/17/19 11:50 74 64/35 05/17/19 11:33 69 112/53 05/17/19 07:35 97.8 F 73 14 119/76 BP Pulse Ox 05/17/19 22:30 96 05/17/19 22:00 95 05/17/19 21:00 96 05/17/19 20:30 92 L 05/17/19 20:00 95 05/17/19 19:52 05/17/19 19:43 96 05/17/19 19:00 95 05/17/19 18:30 98 05/17/19 18:00 94 L 05/17/19 17:30 93 L 05/17/19 17:00 97 05/17/19 16:30 96 05/17/19 16:00 92 L 05/17/19 15:30 94 L 05/17/19 15:00 94 L 05/17/19 14:30 05/17/19 14:10 95 05/17/19 13:26 05/17/19 13:09 05/17/19 11:55 89/51 05/17/19 11:51 78/50 05/17/19 11:50 05/17/19 11:33 97 05/17/19 07:35 96 Intake and Output 05/17/19 05/17/19 05/18/19 14:59 22:59 06:59 Intake Total 825 Output Total 715 Balance 110 Intake: IV 825 Piperacillin-Tazobactam 3 125 .375 gm In Sodium Chloride 0.9% 100 ml @ 25 mls/hr IVPB Q8HR [facility] Rx# :[id number] Sodium Chloride 0.9% 1, 700 000 ml @ 100 mls/hr IV . Q10H [facility] Rx#:[id number] Output: Urine 715 Other: Voiding Method Diaper Indwelling Catheter Incontinent HEENT: Anicteric conjunctiva are pink and moist nasal mucosa grossly intact without significant lesions, there is no thrush. Oral cavity dry, poor dentition Neck: The neck is supple without significant lymphadenopathy or thyromegaly. Lungs: Symmetrical air entry basilar crackles no bronchial sounds Heart: Irregular, 2/6 systolic murmur left sternal border that radiates to the axilla PMI nondisplaced. Abdomen: Obese Positive bowel sounds soft and nontender without palpable masses or organomegaly. There was no guarding or rebound. Extremities: The upper and lower extremities have no significant open lesions, generalized edema is seen Neuro: Arousable non conversational follows no commands Results CBC & Chem 7: 05/17/19 14:18 05/17/19 14:18 Labs: Abnormal Lab Results - Last 24 Hours (Table) 05/17/19 05/17/19 05/17/19 Range/Units 07:23 07:23 11:24 RBC (3.80-5.40) m/uL MCV 103.5 H (80.0-100.0) fL MCHC 30.3 L (31.0-37.0) g/dL RDW 16.0 H (11.5-15.5) % Plt Count 91 L (150-450) k/uL D-Dimer (<0.60) mg/L FEU ABG pCO2 (35-45) mmHg ABG HCO3 (21-25) mmol/L ABG Total CO2 (19-24) mmol/L Carbon Dioxide 35 H (22-30) mmol/L BUN 48 H (7-17) mg/dL Creatinine 1.16 H (0.52-1.04) mg/dL Glucose (74-99) mg/dL POC Glucose (mg/dL) 137 H (75-99) mg/dL Calcium (8.4-10.2) mg/dL AST (14-36) U/L Alkaline Phosphatase (38-126) U/L Total Protein (6.3-8.2) g/dL Albumin (3.5-5.0) g/dL 05/17/19 05/17/19 05/17/19 Range/Units 14:18 14:18 14:18 RBC 3.56 L (3.80-5.40) m/uL MCV 105.5 H (80.0-100.0) fL MCHC (31.0-37.0) g/dL RDW 16.0 H (11.5-15.5) % Plt Count 95 L (150-450) k/uL D-Dimer 0.84 H (<0.60) mg/L FEU ABG pCO2 (35-45) mmHg ABG HCO3 (21-25) mmol/L ABG Total CO2 (19-24) mmol/L Carbon Dioxide 32 H (22-30) mmol/L BUN 53 H (7-17) mg/dL Creatinine 1.34 H (0.52-1.04) mg/dL Glucose 120 H (74-99) mg/dL POC Glucose (mg/dL) (75-99) mg/dL Calcium 8.3 L (8.4-10.2) mg/dL AST 57 H (14-36) U/L Alkaline Phosphatase 143 H (38-126) U/L Total Protein 5.6 L (6.3-8.2) g/dL Albumin 2.7 L (3.5-5.0) g/dL 05/17/19 05/17/19 05/17/19 Range/Units 14:21 20:47 21:35 RBC (3.80-5.40) m/uL MCV (80.0-100.0) fL MCHC (31.0-37.0) g/dL RDW (11.5-15.5) % Plt Count (150-450) k/uL D-Dimer (<0.60) mg/L FEU ABG pCO2 47 H (35-45) mmHg ABG HCO3 32 H (21-25) mmol/L ABG Total CO2 33 H (19-24) mmol/L Carbon Dioxide (22-30) mmol/L BUN (7-17) mg/dL Creatinine (0.52-1.04) mg/dL Glucose (74-99) mg/dL POC Glucose (mg/dL) 255 H 166 H (75-99) mg/dL Calcium (8.4-10.2) mg/dL AST (14-36) U/L Alkaline Phosphatase (38-126) U/L Total Protein (6.3-8.2) g/dL Albumin (3.5-5.0) g/dL Microbiology - Last 24 Hours (Table) 05/17/19 18:36 Urine Culture - Preliminary Urine,Catheterized Microbiology 05/17/19 18:36 Urine,Catheterized Urine Culture - Preliminary Assessment and Plan (1) Agitation Current Visit: Yes Status: Acute Code(s): R45.1 - RESTLESSNESS AND AGITATION SNOMED Code(s): 072263427 (2) Intractable low back pain Current Visit: Yes Status: Acute Code(s): M54.5 - LOW BACK PAIN SNOMED Code(s): 32281130091677099 (3) Compression fracture of L1 lumbar vertebra Current Visit: No Status: Acute Priority: Medium Code(s): S32.010A - WEDGE COMPRESSION FRACTURE OF FIRST LUMBAR VERTEBRA, INIT SNOMED Code(s): 805736853 (4) Paraproteinemia Narrative/Plan: 69-year-old woman presents to hospital with intractable back pain and delirium it has been seen by multiple consultants. Her orthopedic spine surgeon has followed her for some time regarding her significant degenerative disease to her spine apparently is not a surgical candidate at this time. She did have an acute change of her status and a code stroke was called and she's been seen by neurology. She's also been seen by pulmonary critical care. She did have a computed tomography scan of her abdomen and pelvis failed to reveal him to be severe pneumonic infiltrations. Is evidence of the single right kidney from her prior history of left renal cancer and removal years ago. She has evidence of some diverticulosis. Urinalysis is negative. Cultures are negative so far. Patient does not appear to have an underlying significant infectious etiology. As noted there is evidence of the potential paraproteinemia. Unclear if this is contributing to her current constellation of symptoms. Current Visit: Yes Status: Acute Code(s): D89.2 - HYPERGAMMAGLOBULINEMIA, UNSPECIFIED SNOMED Code(s): 804608968
[2019-05-18] MEDS: PIPERACILLIN-TAZOBACTAM 3.375 GM in SODIUM CHLORIDE 0.9% 100 ML IVPB SCH ×4 (00:18→22:01)
[2019-05-18 05:24] LABS: Basophils % (A) 0 %; Eosinophils # (A) 0.2 k/uL (0-0.7); Eosinophils % (A) 2 %; HCT 36.2 % (34.0-46.0); HGB 11.2 gm/dL (11.4-16.0); Hypochromasia Slight; Lymphocytes # (A) 1.5 k/uL (1.0-4.8); Lymphocytes % (A) 22 %; MCH 32.3 pg (25.0-35.0); MCV 104.4 fL (80.0-100.0); Macrocytosis Moderate; Monocytes # (A) 0.5 k/uL (0-1.0); Monocytes % (A) 7 %; Neutrophils # (A) 4.4 k/uL (1.3-7.7); Neutrophils % (A) 66 %; RBC 3.47 m/uL (3.80-5.40); WBC 6.6 k/uL (3.8-10.6)
[2019-05-18 05:33] LABS: Calcium 8.1 mg/dL (8.4-10.2); Magnesium 1.6 mg/dL (1.6-2.3); Phosphorus 3.9 mg/dL (2.5-4.5); Potassium 4.1 mmol/L (3.5-5.1)
[2019-05-18 05:39] LABS: Platelet Count 86 k/uL (150-450)
[2019-05-18] MEDS: PANTOPRAZOLE 40 MG TABLET PO SCH (06:14)
[2019-05-18] MEDS: SODIUM CHLORIDE 0.9% 1,000 ML IV SCH ×2 (06:15→17:43)
[2019-05-18] MEDS ORDERED: Magnesium Replacement Protocol 1 EACH MISC MISCELLANE PRN (06:23)
[2019-05-18] MEDS: MAGNESIUM SULFATE-D5W PMX 1 GM in DEXTROSE/WATER 1 100ML.BAG IVPB SCH ×2 (06:48→08:35)
[2019-05-18 07:10] LABS: Glucose,Whole Blood 118 mg/dL (75-99)
--- NOTE | 2019-05-18 07:16 | XR ---
EXAMINATION TYPE: XR chest 1V portable DATE OF EXAM: 05/18/2019 COMPARISON: 05/17/2019 HISTORY: Difficulty breathing TECHNIQUE: Single frontal view of the chest is obtained. FINDINGS: Heart is enlarged there remains a coarsened interstitium. Cardiac device and atherosclerot ic change aorta. No pneumothorax. Subsegmental changes at the left lung base. IMPRESSION: 1. Cardiomegaly with left basilar atelectasis or infiltrate. Interstitial changes may been the basis of interstitial pneumonitis or mild venous congestion.
[2019-05-18] MEDS: IPRATROPIUM-ALBUTEROL 3 ML NEB INHALATION SCH ×4 (08:17→19:01)
[2019-05-18] MEDS: INSULIN ASPART (NovoLOG) 100 UNIT/ML VIAL SQ SCH ×4 (08:24→22:00)
[2019-05-18] MEDS: METOPROLOL TARTRATE 25 MG TAB PO SCH ×3 (08:35→21:59)
[2019-05-18] MEDS: APIXABAN 5 MG TAB PO SCH ×2 (08:35→17:22)
[2019-05-18] MEDS: ALLOPURINOL 100 MG TAB PO SCH (08:35)
[2019-05-18] MEDS: GABAPENTIN 300 MG CAP PO SCH ×3 (08:36→21:59)
[2019-05-18] MEDS: rOPINIRole HCL 4 MG TABLET PO SCH (08:36)
[2019-05-18] MEDS: FUROSEMIDE 40 MG TAB PO SCH (08:36)
[2019-05-18] MEDS: ISOSORBIDE MONONITRATE ER 30 MG TAB.ER.24H PO SCH (09:23)
[2019-05-18] MEDS: NYSTATIN 100,000 UNIT/ML SUSP 500,000 UNIT/5 ML CUP PO SCH ×4 (09:23→22:00)
[2019-05-18] MEDS ORDERED: METOPROLOL TARTRATE 25 MG TAB PO STA (10:09)
[2019-05-18] MEDS: MODAFINIL 100 MG TAB PO SCH (10:13)
--- NOTE | 2019-05-18 11:22 | PN ---
PROGRESS NOTE DATE OF SERVICE: 05/18/2019 The patient is being seen in the ICU. According to nursing staff, the patient has been doing "fantastic". They state that the patient was quite alert earlier today and has had conversations on her phone. She was quite appropriate and trying to obtain paperwork regarding her dog. The patient currently denies headache, she continues to report back and lower extremity discomfort. The patient was sleeping when I initially entered the room but was easily arousable. Nursing staff state the patient become drowsy after being provided her Requip and Neurontin doses. While I was in the room, her cell phone began to ring, she looked that number and stated that she did not need to answer that now. The patient did convert to atrial fibrillation with rapid ventricular response earlier today, she is currently maintained on Eliquis. CURRENT MEDICATIONS: Tylenol, Tylenol No. 3, DuoNeb, Zyloprim, Eliquis, aspirin 81 mg q. day, Lipitor 40 mg q. day, Dulcolax, Lexapro, Feosol, Lasix, Neurontin 300 mg t.i.d., [place] p.r.n., Dilaudid p.r.n., NovoLog, Imdur, Toradol p.r.n., Ativan p.r.n., milk of magnesia, Lopressor, Provigil, Nitrostat, Protonix, piperacillin, Requip 4 mg q.i.d. CURRENT EXAM: The patient is lying in the ICU, initially sleeping, easily arousable. She is a morbidly obese, appropriate, answers questions readily and follows commands. She remains alert through the course of the evaluation. She was able to discuss the name of her dog (Adán) and the dogs breed. VITAL SIGNS: Blood pressure is 116/72 with a pulse of 90, respiratory rate at 32, temperature is 98.6. HIGHER CORTICAL FUNCTION: MENTAL STATUS: Patient was alert, oriented to self. She knew she was at [facility], knew the year, month, and was able to name the current president. She was able to name a watch and glove, which she could repeat. There was no aphasia or dysarthria. CRANIAL NERVES 2 through 12: Pupils are equal and reactive to light symmetrically. Visual adame are intact to confrontation. Extraocular movements were full. There is no facial asymmetry. Shoulder shrug was equal and tongue protruded midline. MOTOR EXAMINATION: The patient has limited movement of the proximal left upper extremity related to a local shoulder issues. She readily picked the right upper extremity up without associated drift. There was reduced bulk in the hand intrinsic muscles with normal tone and no involuntary movements are noted. Strength is at least 4+ over 5 involving the right upper extremity and least 4 minus to 4/5 involving the left upper extremity which is limited by pain. In the lower extremities, strength is at least 4+ over 5 in a symmetric fashion. Plantar responses flexor bilaterally. The patient has pes planus bilaterally. Dixon's is absent. COORDINATION: Finger to nose are intact within limitations of the proximal left upper extremity. [id number]-[id number] not demonstrated. No dysmetria. Rapid alternating movements are symmetric with finger tapping. DIAGNOSTIC TESTING: The patient's lab work demonstrates a white blood count of 6.6, hemoglobin 11.2, platelet count 86. Sodium 141, potassium 4.1, BUN 51, with creatinine 1.2. Magnesium 1.6. Telemetry demonstrates atrial fibrillation with rapid ventricular response. Chest x-ray demonstrated cardiomegaly with left basilar atelectasis or infiltrate. IMPRESSION: 1. Encephalopathy in the setting of polypharmacy, prerenal azotemia, sleep deprivation and recent grief reaction related to the loss of her on 05/06/2019. 2. Unresponsiveness yesterday with hypotension and hypercarbia, significantly improved. According to nursing staff, the patient was talking appropriately on her cell phone this morning. The patient did have a followup CT scan of the brain completed yesterday, which was unrevealing. 3. Intractable back/lower extremity pain with history of L1 compression fracture, fibromyalgia, osteoarthritis, neuropathy and restless legs syndrome. 4. Refractory restless legs syndrome with augmentation. According to nursing staff, the patient becomes drowsy following Requip doses and we may take this opportunity to reduce the dose of Requip further. 5. History of narcolepsy, maintained on Provigil. 6. Paroxysmal atrial fibrillation, currently with rapid ventricular response, the patient is maintained on Eliquis/aspirin. 7. Left basilar atelectasis versus infiltrate on chest x-ray. RECOMMENDATION: 1. Case was discussed with the patient and nursing staff. 2. Treatment of medical issues per primary service. 3. Minimize sedative/narcotic medication if possible, Sinemet has been discontinued and I will further reduce her Requip dose. 4. Increase activity as tolerated. 5. Gentle hydration per primary service. 6. Will follow with you on an intermittent basis. Thank you for allowing me to participate in the care of your patient. JUAN / TRISTEN: [id number] / MTDD
[2019-05-18 11:58] LABS: Glucose,Whole Blood 164 mg/dL (75-99)
--- NOTE | 2019-05-18 13:16 | P.PN ---
Subjective Progress Note Date: 05/18/19 Principal diagnosis: Altered mental status, agitation, delirium. This is a 69-year-old female patient who follows with Dr. Weiss as her primary care physician. She has a history of atrial fibrillation, angina, congestive heart failure, fibromyalgia, GERD, osteoarthritis, obstructive sleep apnea not currently using CPAP, narcolepsy, COPD, panic low back pain which radiates down bilateral legs, lumbar disc disease, spondylosis, compression fractions, renal cancer with left nephrectomy in 1971, coronary artery disease with previous coronary artery bypass grafting, permanent pacemaker implantation. She presented here to the emergency room yesterday with worsening low back pain and hip pain. He is also having ongoing issues with altered mental status. His been seen and evaluated by psychiatric services, neurology services, orthopedic services, cardiology services. Earlier today she was up in a chair at the bedside and when that staff was returned to bed she went unresponsive. Code stroke was called. Computed tomography scan of the brain revealed no acute intracranial process. Computed tomography scan of the abdomen and pelvis revealed evidence of diverticulosis, neurosis, borderline splenomegaly. His x- ray reveals stable findings with chronic parenchymal changes with low lung volumes and cardiomegaly but no acute pulmonary process. She remains somewhat unresponsive and was transferred here to the intensive care unit. We are consulted for ICU management. She currently she is difficult to arouse. Arterial blood gases revealed a pO2 of 87, pCO2 of 47, pH 7.44 40% FiO2. White count 7.0. Hemoglobin 11.6. Platelet count 95,000. Creatinine 1.34. Blood glucose 120. She is afebrile. Maintaining O2 saturations in the 90s on room air. She's hemodynamically stable. He has been seen and evaluated by neurology here in the ICU today. Patient was reevaluated today on 05/18/2019, patient was doing extremely well earlier this morning, she was quite awake alert and oriented, and she had a good conversation over the phone with some relatives. Patient was basically asymptomatic, and even when I went in to see the patient she was doing fairly w ell, but suddenly she was noted to be more sleepy and more lethargic, she was noted to be experiencing atrial fibrillation with RVR, went ahead and recommended increase in the dose of her beta blockers. All her medications were reviewed. And apparently some of them were adjusted by the neurologist including the Neurontin and the Requip. The dose of the Requip was cut down mostly because of the concern that the medications may be causing some of her lethargy. And that is very likely. Labs were noted to be normal including a normal CBC, normal electrolytes, BUN however is 51 creatinine is 1.23. Slightly improved compared to yesterday. However her baseline creatinine is 0.98. Baseline BUN is above 48 chest x-ray today showed cardiomegaly, left basilar atelectasis. Objective - Vital Signs Vital signs: Vital Signs Temp 98 F 05/18/19 12:00 Pulse 64 05/18/19 12:00 Resp 26 H 05/18/19 12:20 BP 112/63 05/18/19 12:00 Pulse Ox 89 L 05/18/19 12:00 Intake & Output 05/17/19 05/18/19 05/18/19 18:59 06:59 18:59 Intake Total 500 1485 920 Output Total 450 925 735 Balance 50 560 185 Weight 102.7 kg Intake: IV 500 1125 800 Magnesium Sulfate-D5w Pmx 100 1 gm In Dextrose/Water 1 100ml.bag @ 100 mls/hr IVPB Q1H HI Rx#: [id number] Piperacillin-Tazobactam 3 100 125 100 .375 gm In Sodium Chloride 0.9% 100 ml @ 25 mls/hr IVPB Q8HR HI Rx# :[id number] Sodium Chloride 0.9% 1, 400 1000 600 000 ml @ 100 mls/hr IV . Q10H HI Rx#:[id number] Oral 360 120 Output: Urine 450 925 735 Other: Voiding Method Indwelling Catheter Indwelling Catheter Indwelling Catheter - Exam Physical Exam: Revealed a 69-year-old white female, morbidly obese, in no distress, on 2 L nasal cannula Head: Atraumatic, normocephalic. HEENT:[Neck is supple.] [No neck masses.] [No thyromegaly.] [No JVD.] Chest: [Clear throughout, no crackles, no rhonchi, no wheezes.] Cardiac Exam: [Normal S1 and S2, no S3 gallop, no murmur.] Abdomen: [Soft, nontender, no megaly, no rebound, no guarding, normal bowel sounds.] Extremities: [No clubbing, no edema, no cyanosis.] Neurological Exam: [No focal neurologic deficit.] Alert and oriented 3, but intermittently noted to fall asleep easily. - Labs CBC & Chem 7: 05/18/19 05:01 05/18/19 05:01 Labs: Abnormal Lab Results - Last 24 Hours (Table) 05/17/19 05/17/19 05/17/19 Range/Units 14:18 14:18 14:18 RBC 3.56 L (3.80-5.40) m/uL Hgb (11.4-16.0) gm/dL MCV 105.5 H (80.0-100.0) fL RDW 16.0 H (11.5-15.5) % Plt Count 95 L (150-450) k/uL D-Dimer 0.84 H (<0.60) mg/L FEU ABG pCO2 (35-45) mmHg ABG HCO3 (21-25) mmol/L ABG Total CO2 (19-24) mmol/L Chloride (98-107) mmol/L Carbon Dioxide 32 H (22-30) mmol/L BUN 53 H (7-17) mg/dL Creatinine 1.34 H (0.52-1.04) mg/dL Glucose 120 H (74-99) mg/dL POC Glucose (mg/dL) (75-99) mg/dL Calcium 8.3 L (8.4-10.2) mg/dL AST 57 H (14-36) U/L Alkaline Phosphatase 143 H (38-126) U/L Total Protein 5.6 L (6.3-8.2) g/dL Albumin 2.7 L (3.5-5.0) g/dL 05/17/19 05/17/19 05/17/19 Range/Units 14:21 20:47 21:35 RBC (3.80-5.40) m/uL Hgb (11.4-16.0) gm/dL MCV (80.0-100.0) fL RDW (11.5-15.5) % Plt Count (150-450) k/uL D-Dimer (<0.60) mg/L FEU ABG pCO2 47 H (35-45) mmHg ABG HCO3 32 H (21-25) mmol/L ABG Total CO2 33 H (19-24) mmol/L Chloride (98-107) mmol/L Carbon Dioxide (22-30) mmol/L BUN (7-17) mg/dL Creatinine (0.52-1.04) mg/dL Glucose (74-99) mg/dL POC Glucose (mg/dL) 255 H 166 H (75-99) mg/dL Calcium (8.4-10.2) mg/dL AST (14-36) U/L Alkaline Phosphatase (38-126) U/L Total Protein (6.3-8.2) g/dL Albumin (3.5-5.0) g/dL 05/18/19 05/18/19 05/18/19 Range/Units 05:01 05:01 06:57 RBC 3.47 L (3.80-5.40) m/uL Hgb 11.2 L (11.4-16.0) gm/dL MCV 104.4 H (80.0-100.0) fL RDW 16.0 H (11.5-15.5) % Plt Count 86 L (150-450) k/uL D-Dimer (<0.60) mg/L FEU ABG pCO2 (35-45) mmHg ABG HCO3 (21-25) mmol/L ABG Total CO2 (19-24) mmol/L Chloride 108 H (98-107) mmol/L Carbon Dioxide (22-30) mmol/L BUN 51 H (7-17) mg/dL Creatinine 1.23 H (0.52-1.04) mg/dL Glucose 122 H (74-99) mg/dL POC Glucose (mg/dL) 118 H (75-99) mg/dL Calcium 8.1 L (8.4-10.2) mg/dL AST (14-36) U/L Alkaline Phosphatase (38-126) U/L Total Protein (6.3-8.2) g/dL Albumin (3.5-5.0) g/dL 05/18/19 Range/Units 11:54 RBC (3.80-5.40) m/uL Hgb (11.4-16.0) gm/dL MCV (80.0-100.0) fL RDW (11.5-15.5) % Plt Count (150-450) k/uL D-Dimer (<0.60) mg/L FEU ABG pCO2 (35-45) mmHg ABG HCO3 (21-25) mmol/L ABG Total CO2 (19-24) mmol/L Chloride (98-107) mmol/L Carbon Dioxide (22-30) mmol/L BUN (7-17) mg/dL Creatinine (0.52-1.04) mg/dL Glucose (74-99) mg/dL POC Glucose (mg/dL) 164 H (75-99) mg/dL Calcium (8.4-10.2) mg/dL AST (14-36) U/L Alkaline Phosphatase (38-126) U/L Total Protein (6.3-8.2) g/dL Albumin (3.5-5.0) g/dL Microbiology - Last 24 Hours (Table) 05/17/19 18:36 Urine Culture - Preliminary Urine,Catheterized Assessment and Plan Assessment: Impression: 1 acute presentation of metabolic encephalopathy, likely multifactorial related to her medications, azotemia, and possibly related to grief. 2 chronic pain syndrome with compression fracture of L1, fibromyalgia, neuropathy, and restless leg syndrome. 3 narcolepsy 4 obstructive sleep apnea syndrome Coronary artery disease and previous CABG Chronic hypoxic respiratory failure maintained normally on 2 L nasal cannula. Chronic atrial fibrillation History of chronic diastolic congestive heart failure History of nephrectomy related to renal cell carcinoma History of chronic migraine cephalgia Poor functional performance and multiple comorbidities. Recommendation: Continue present supportive care measures. Increase metoprolol to 25 mg 3 times a day to control her atrial fibrillation, consider transferring the patient to a monitor bed on selective. Her pain meds and urological medications are being adjusted by neurology on the case. We'll continue to follow. Time with Patient: Less than 30
--- NOTE | 2019-05-18 16:22 | PN ---
PROGRESS NOTE DATE OF SERVICE: 05/18/2019. HISTORY OF PRESENT ILLNESS: This 69-year-old woman was admitted with back pain, abdominal pain, shortness of breath also had multiple medications for chronic pain syndrome and associated medical psychiatric issues. The patient had an episode of unresponsive yesterday. CODE STROKE was called and the patient was easily arousable at this time and the patient also thought to have encephalopathy in the setting of polypharmacy by Neurology. The patient is also seen by Dr. James from the ICU standpoint a few as well. The patient also had a history of narcolepsy on multiple medications. EEG is being done. PAST MEDICAL HISTORY: Reviewed. REVIEW OF SYMPTOMS: Review of system could not be taken, the patient is confused. CURRENT MEDICATIONS: Reviewed and include: 1. Tylenol 650 q.6 p.r.n. 2. Tylenol #3. 3. [place] 10 mg q.6h p.r.n. 4. DuoNeb q.i.d. and p.r.n. 5. Zyloprim 100 mg p.o. daily. 6. Eliquis 5 mg p.o. b.i.d. 7. Aspirin 81 mg. 8. Lipitor 40 mg q.h.s. 9. Dulcolax 10 mg p.r.n. 10.Lexapro 20 mg q.h.s. 11.Iron sulfate 320 mg p.o. daily. 12.Lasix 40 mg p.o. daily. 13.Neurontin 300 mg p.o. t.i.d. 14.NovoLog scale. 15.Imdur 30 mg p.o. daily. 16.Toradol 50 mg q.6h p.r.n. 17.Milk of magnesia. 18.Lopressor 25 mg p.o. t.i.d. 19.Magnesium X. 20.Provigil 100 mg p.o. daily. 21.Narcan 0.2 mg IV q.2h p.r.n. 22.Nitrostat 0.4 sublingual p.r.n. 23.Mycostatin powder. 24.Protonix 40 mg p.o. daily. 25.Zosyn 3.375 IV q.8h. 26.Requip 1 mg p.o. t.i.d. 27.Fleet's. 28.IV fluids. PHYSICAL EXAMINATION: Patient is alert, oriented x1. Pulse 61, blood pressure 120/50, respiration 24, temperature 98 degrees, pulse ox 94% on 3 L. HEENT: Conjunctivae normal. NECK: No jugular venous distention. CARDIOVASCULAR: S1, S2 muffled. RESPIRATION: Breath sounds diminished in the bases. Bilateral scattered rhonchi and crackles. Expiratory wheezing. ABDOMEN: Soft, nontender. LEGS are no edema. No swelling. NERVOUS SYSTEM: No focal deficits. LABORATORY DATA: WBC 6.2, hemoglobin 11.2, MCV 104.4, platelets 86. Sodium 140, potassium 4.2 creatinine is 1.23. ASSESSMENT: 1. Shortness of breath, possible bibasilar pneumonia possibly gram-negative sepsis present on admission. 2. Congestive heart failure, acute exacerbation with acute on chronic diastolic dysfunction, present on admission. 3. Acute on chronic back pain secondary to degenerative joint disease. 4. Metabolic encephalopathy, multifactorial, unlikely to be stroke, possibly drug induced and polypharmacy. 5. History atrial fibrillation. 6. History of chronic obstructive pulmonary disease. 7. History of congestive heart failure with chronic diastolic dysfunction ejection fraction 50-55 percent. 8. History of fibromyalgia. 9. Gastroesophageal reflux disease. 10.History of degenerative joint disease. 11.Sleep apnea. 12.History of chronic low back pain. 13.Osteoporosis. 14.History of narcolepsy. 15.History of frequent falls. 16.History of renal cancer and nephrectomy. 17.History of bladder stimulator. 18.History of coronary artery disease, coronary artery bypass grafting. 19.History of pacemaker. 20.History of anxiety. 21.Obesity with body mass index 42. 22.Gait dysfunction. 23.FULL CODE. RECOMMENDATIONS AND DISCUSSION: Recommend to continue current medications, management and symptomatic treatment. Continue with bronchodilators. Continue the antibiotics. Continue the rest of medications. Otherwise, we will monitor closely with Pulmonology and Neurology. Otherwise we will continue to monitor. Repeat labs. The prognosis guarded because of multiple complex medical issues. Further recommendations to follow. PT/OT evaluation, possible ECF rehab eventually and will closely follow with multiple consultants. EEG has been ordered. Further recommendations to follow. MMODL / IJN: [id number] /
[2019-05-18] MEDS ORDERED: METOPROLOL TARTRATE 25 MG TAB PO SCH (17:00)
[2019-05-18] MEDS ORDERED: METOPROLOL TARTRATE 50 MG TAB PO SCH (17:00)
--- NOTE | 2019-05-18 17:04 | P.PN ---
Subjective Progress Note Date: 05/18/19 This is a 69-year-old female who was admitted to the hospital with altered mental status. Patient has history of paroxysmal atrial fibrillation and also permanent pacemaker implantation. Patient mental status is improved. Patient was oriented to time and place. She was also conversing on the phone appr opriately. Patient went into atrial fibrillation this morning and also had short runs of wide complex rhythm. We are going to increase the dose of the beta vaibhav. Patient's medication for pain may have something to do with mental status changes. This is being addressed. From Cardec standpoint we'll continue to monitor Objective - Vital Signs Vital signs: Vital Signs Temp 98 F 05/18/19 12:00 Pulse 60 05/18/19 15:56 Resp 18 05/18/19 15:48 BP 118/79 05/18/19 15:00 Pulse Ox 95 05/18/19 15:00 Intake & Output 05/17/19 05/18/19 05/18/19 18:59 06:59 18:59 Intake Total 500 1485 1220 Output Total 547 347 7862 Balance 50 560 -40 Weight 102.7 kg Intake: IV 500 1125 1100 Magnesium Sulfate-D5w Pmx 100 1 gm In Dextrose/Water 1 100ml.bag @ 100 mls/hr IVPB Q1H HI Rx#: [id number] Piperacillin-Tazobactam 3 100 125 100 .375 gm In Sodium Chloride 0.9% 100 ml @ 25 mls/hr IVPB Q8HR HI Rx# :[id number] Sodium Chloride 0.9% 1, 400 1000 900 000 ml @ 100 mls/hr IV . Q10H HI Rx#:[id number] Oral 360 120 Output: Urine 344 495 8388 Other: Voiding Method Indwelling Catheter Indwelling Catheter Indwelling Catheter - Exam GENERAL EXAM: Patient is alert and oriented and doesn't appear to be in any acute distress HEENT: Normocephalic. Normal reaction of pupils, equal size, normal range of extraocular motion. No erythema or exudates in the throat. NECK: No masses, no nuchal rigidity. CHEST: No chest wall deformity. LUNGS: Equal air entry with no crackles or wheeze. HEART: S1 and S2 normal with no audible mumurs or gallops. Regular rhythm, femorals equal on both sides.. ABDOMEN: No hepatosplenomegaly, normal bowel sounds, no guarding or rigidity. SKIN: No rashes CENTRAL NERVOUS SYSTEM: No focal deficits. EXTREMITIES: No cyanosis, clubbing or edema. - Labs CBC & Chem 7: 05/18/19 05:01 05/18/19 05:01 Labs: Abnormal Lab Results - Last 24 Hours (Table) 05/17/19 05/17/19 05/18/19 Range/Units 20:47 21:35 05:01 RBC 3.47 L (3.80-5.40) m/uL Hgb 11.2 L (11.4-16.0) gm/dL MCV 104.4 H (80.0-100.0) fL RDW 16.0 H (11.5-15.5) % Plt Count 86 L (150-450) k/uL Chloride (98-107) mmol/L BUN (7-17) mg/dL Creatinine (0.52-1.04) mg/dL Glucose (74-99) mg/dL POC Glucose (mg/dL) 255 H 166 H (75-99) mg/dL Calcium (8.4-10.2) mg/dL 05/18/19 05/18/19 05/18/19 Range/Units 05:01 06:57 11:54 RBC (3.80-5.40) m/uL Hgb (11.4-16.0) gm/dL MCV (80.0-100.0) fL RDW (11.5-15.5) % Plt Count (150-450) k/uL Chloride 108 H (98-107) mmol/L BUN 51 H (7-17) mg/dL Creatinine 1.23 H (0.52-1.04) mg/dL Glucose 122 H (74-99) mg/dL POC Glucose (mg/dL) 118 H 164 H (75-99) mg/dL Calcium 8.1 L (8.4-10.2) mg/dL Microbiology - Last 24 Hours (Table) 05/17/19 14:18 Blood Culture - Preliminary Blood No Growth after 24 hours 05/17/19 18:36 Urine Culture - Preliminary Urine,Catheterized Assessment and Plan (1) Paroxysmal atrial fibrillation Current Visit: Yes Status: Acute Code(s): I48.0 - PAROXYSMAL ATRIAL FIBRILLATION SNOMED Code(s): 967689738 (2) Agitation Current Visit: Yes Status: Acute Code(s): R45.1 - RESTLESSNESS AND AGITATION SNOMED Code(s): 862596509 (3) Essential hypertension Current Visit: No Status: Acute Code(s): I10 - ESSENTIAL (PRIMARY) HYPERTENSION SNOMED Code(s): 10294046 (4) History of coronary artery bypass graft Current Visit: No Status: Acute Code(s): Z95.1 - PRESENCE OF AORTOCORONARY BYPASS GRAFT SNOMED Code(s): 915803954 (5) History of heart failure Current Visit: No Status: Acute Code(s): Z86.79 - PERSONAL HISTORY OF OTHER DISEASES OF THE CIRCULATORY SYSTEM SNOMED Code(s): 441587440 (6) History of myocardial infarction Current Visit: No Status: Acute Code(s): I25.2 - OLD MYOCARDIAL INFARCTION SNOMED Code(s): 534299645 Plan: We'll increase the dose of the beta vaibhav. Continue the rest of the medication. We'll follow
[2019-05-18] MEDS: FERROUS SULFATE 325 MG TAB PO SCH (17:22)
[2019-05-18] MEDS: ASPIRIN 81 MG PO SCH (17:22)
[2019-05-18 17:26] LABS: Glucose,Whole Blood 113 mg/dL (75-99)
--- NOTE | 2019-05-18 18:15 | EEG ---
ELECTROENCEPHALOGRAM REPORT DATE OF EE05/17/2019. REFERRING PHYSICIAN: Dr. Mora. CLINICAL HISTORY: This is an 18 channel EEG with 1 channel EKG recording on a 69-year-old female who presented with mental status changes and had an episode on the medical floor where she became hypotensive and unresponsive. This study is being done to rule out epileptiform discharges. FINDINGS: Brief wakefulness and predominant drowsiness and stage 2 sleep were obtained during the recording. In the maximally awake state, a moderate voltage, 6-7 hertz posterior dominant background rhythm was demonstrated. This is fairly regulated, fairly sustained, symmetric and reactive. Low-voltage faster frequencies were best seen over the frontal central head regions. Photic stimulation produced a symmetric driving response to flash frequencies. Drowsiness and stage II sleep were manifested by attenuation of posterior dominant background rhythm and the appearance of symmetric vertex waves/sleep spindles. No epileptiform discharges or focal lateralizing features are present. SUMMARY: This EEG is abnormal in wakefulness, drowsiness, and sleep due to the presence of slowing and disorganization of the background rhythm. INTERPRETATION: The background slowing is nonspecific sign of bihemispheric neuronal dysfunction as seen in a mild to moderate diffuse encephalopathy. No epileptiform discharges, electrographic seizures, or focal lateralizing features are present. MMODL / IJN: [id number] / [facility] CENTERClaudine
[2019-05-18 20:43] LABS: Glucose,Whole Blood 206 mg/dL (75-99)
[2019-05-18] MEDS: ESCITALOPRAM 20 MG TAB PO SCH (22:00)
[2019-05-18] MEDS: ATORVASTATIN 40 MG TAB PO SCH (22:00)
--- NOTE | 2019-05-18 22:57 | P.PN ---
Subjective Progress Note Date: 05/18/19 69-year-old female who has multiple medical issues that includes cardiovascular disease including cardiac dysrhythmia with atrial fibrillation, congestive heart failure, COPD, fibromyalgia and history of obstructive sleep apnea. Apparently she does not wear her CPAP device and has difficulty with narcolepsy and this is treated. The patient presents to Hospital with alteration of her mental status and delirium. She has been seen by neurology. She also had significant complaints of severe pain in her admission. She follows with orthopedic spine in the outpatient setting in an ongoing basis. 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 In February appears that she had the start of a workup there is no evidence of abnormality on bone scan as far as metastatic disease. However she appeared to have evidence of paraproteinemia, with positive lambda bands. She was seen by hematology oncology during that stay in follow-up is not clear at this time. There is no notation of any fevers, chills or rigors. The patient herself is really not conversational and it's difficult to elucidate other significant complaints at this time. 05/18/2019 patient is more awake alert and interactive. Still not a good historian but is able to answer some questions. She is still very uncomfortable overall Objective - Vital Signs Vital signs: Vital Signs Temp 97.7 F 05/18/19 16:00 Pulse 60 05/18/19 19:15 Resp 20 05/18/19 19:00 BP 109/83 05/18/19 19:00 Pulse Ox 94 L 05/18/19 19:00 Intake & Output 05/18/19 05/18/19 05/19/19 06:59 18:59 06:59 Intake Total 1485 1520 100 Output Total 925 1620 60 Balance 560 -100 40 Weight 102.7 kg Intake: IV 1125 1400 100 Magnesium Sulfate-D5w Pmx 100 1 gm In Dextrose/Water 1 100ml.bag @ 100 mls/hr IVPB Q1H HI Rx#: [id number] Piperacillin-Tazobactam 3 125 100 .375 gm In Sodium Chloride 0.9% 100 ml @ 25 mls/hr IVPB Q8HR HI Rx# :[id number] Sodium Chloride 0.9% 1, 1000 1200 100 000 ml @ 100 mls/hr IV . Q10H HI Rx#:[id number] Oral 360 120 Output: Urine 925 1620 60 Other: Voiding Method Indwelling Catheter Indwelling Catheter - Exam HEENT: Anicteric conjunctiva are pink and moist nasal mucosa grossly intact without significant lesions, there is no thrush. Oral cavity dry, poor dentition Neck: The neck is supple without significant lymphadenopathy or thyromegaly. Lungs: Symmetrical air entry basilar crackles no bronchial sounds Heart: Irregular, 2/6 systolic murmur left sternal border that radiates to the axilla PMI nondisplaced. Abdomen: Obese Positive bowel sounds soft and nontender without palpable masses or organomegaly. There was no guarding or rebound. Extremities: The upper and lower extremities have no significant open lesions, generalized edema is seen Neuro: Awake able to answer a few questions with simple answers - Labs CBC & Chem 7: 05/18/19 05:01 05/18/19 05:01 Labs: Abnormal Lab Results - Last 24 Hours (Table) 05/18/19 05/18/19 05/18/19 Range/Units 05:01 05:01 06:57 RBC 3.47 L (3.80-5.40) m/uL Hgb 11.2 L (11.4-16.0) gm/dL MCV 104.4 H (80.0-100.0) fL RDW 16.0 H (11.5-15.5) % Plt Count 86 L (150-450) k/uL Chloride 108 H (98-107) mmol/L BUN 51 H (7-17) mg/dL Creatinine 1.23 H (0.52-1.04) mg/dL Glucose 122 H (74-99) mg/dL POC Glucose (mg/dL) 118 H (75-99) mg/dL Calcium 8.1 L (8.4-10.2) mg/dL 05/18/19 05/18/19 05/18/19 Range/Units 11:54 17:22 20:40 RBC (3.80-5.40) m/uL Hgb (11.4-16.0) gm/dL MCV (80.0-100.0) fL RDW (11.5-15.5) % Plt Count (150-450) k/uL Chloride (98-107) mmol/L BUN (7-17) mg/dL Creatinine (0.52-1.04) mg/dL Glucose (74-99) mg/dL POC Glucose (mg/dL) 164 H 113 H 206 H (75-99) mg/dL Calcium (8.4-10.2) mg/dL Microbiology - Last 24 Hours (Table) 05/17/19 18:36 Urine Culture - Final Urine,Catheterized 05/17/19 14:18 Blood Culture - Preliminary Blood No Growth after 24 hours Laboratory Results WBC 6.6 k/uL (3.8-10.6) 05/18/19 05:01 RBC 3.47 m/uL (3.80-5.40) L 05/18/19 05:01 Hgb 11.2 gm/dL (11.4-16.0) L 05/18/19 05:01 Hct 36.2 % (34.0-46.0) 05/18/19 05:01 MCV 104.4 fL (80.0-100.0) H 05/18/19 05:01 MCH 32.3 pg (25.0-35.0) 05/18/19 05:01 MCHC 31.0 g/dL (31.0-37.0) 05/18/19 05:01 RDW 16.0 % (11.5-15.5) H 05/18/19 05:01 Plt Count 86 k/uL (150-450) L 05/18/19 05:01 Neutrophils % 66 % 05/18/19 05:01 Lymphocytes % 22 % 05/18/19 05:01 Monocytes % 7 % 05/18/19 05:01 Eosinophils % 2 % 05/18/19 05:01 Basophils % 0 % 05/18/19 05:01 Neutrophils # 4.4 k/uL (1.3-7.7) 05/18/19 05:01 Lymphocytes # 1.5 k/uL (1.0-4.8) 05/18/19 05:01 Monocytes # 0.5 k/uL (0-1.0) 05/18/19 05:01 Eosinophils # 0.2 k/uL (0-0.7) 05/18/19 05:01 Basophils # 0.0 k/uL (0-0.2) 05/18/19 05:01 Manual Slide Review Performed 05/15/19 16:02 Hypochromasia Slight 05/18/19 05:01 Anisocytosis Slight 05/17/19 14:18 Macrocytosis Moderate 05/18/19 05:01 PT 11.5 sec (9.0-12.0) 05/17/19 14:18 INR 1.1 (<1.2) 05/17/19 14:18 APTT 26.3 sec (22.0-30.0) 05/17/19 14:18 D-Dimer 0.84 mg/L FEU (<0.60) H 05/17/19 14:18 [facility] 05/17/19 14:21 ABG pH 7.44 (7.35-7.45) 05/17/19 14:21 ABG pCO2 47 mmHg (35-45) H 05/17/19 14:21 ABG pO2 87 mmHg (83-108) 05/17/19 14:21 ABG HCO3 32 mmol/L (21-25) H 05/17/19 14:21 ABG Total CO2 33 mmol/L (19-24) H 05/17/19 14:21 ABG O2 Saturation 96.8 % (94-97) 05/17/19 14:21 ABG Base Excess 7.7 mmol/L 05/17/19 14:21 Shamir Test Yes 05/17/19 14:21 FiO2 40 % 05/17/19 14:21 Sodium 141 mmol/L (137-145) 05/18/19 05:01 Potassium 4.1 mmol/L (3.5-5.1) 05/18/19 05:01 Chloride 108 mmol/L (98-107) H 05/18/19 05:01 Carbon Dioxide 27 mmol/L (22-30) 05/18/19 05:01 Anion Gap 6 mmol/L 05/18/19 05:01 BUN 51 mg/dL (7-17) H 05/18/19 05:01 Creatinine 1.23 mg/dL (0.52-1.04) H 05/18/19 05:01 Est GFR (CKD-EPI)AfAm 51 (>60 ml/min/1.73 sqM) 05/18/19 05:01 Est GFR (CKD-EPI)NonAf 44 (>60 ml/min/1.73 sqM) 05/18/19 05:01 Glucose 122 mg/dL (74-99) H 05/18/19 05:01 POC Glucose (mg/dL) 206 mg/dL (75-99) H 05/18/19 20:40 POC Glu Nutritionalist ID Leia Valle 05/18/19 20:40 Plasma Lactic Acid Zaid 1.4 mmol/L (0.7-2.0) 05/17/19 14:18 Calcium 8.1 mg/dL (8.4-10.2) L 05/18/19 05:01 Phosphorus 3.9 mg/dL (2.5-4.5) 05/18/19 05:01 Magnesium 1.6 mg/dL (1.6-2.3) 05/18/19 05:01 Ferritin 130.6 ng/mL (10.0-291.0) 05/15/19 16:02 Total Bilirubin 0.6 mg/dL (0.2-1.3) 05/17/19 14:18 AST 57 U/L (14-36) H 05/17/19 14:18 ALT 26 U/L (9-52) 05/17/19 14:18 Alkaline Phosphatase 143 U/L (38-126) H 05/17/19 14:18 Ammonia 17 umol/L (<30) 05/17/19 10:53 Troponin I 0.014 ng/mL (0.000-0.034) 05/18/19 05:01 NT-Pro-B Natriuret Pep 1040 pg/mL 05/16/19 15:37 Total Protein 5.6 g/dL (6.3-8.2) L 05/17/19 14:18 Albumin 2.7 g/dL (3.5-5.0) L 05/17/19 14:18 TSH 3.230 mIU/L (0.465-4.680) 05/17/19 10:53 Urine Color Yellow 05/15/19 16:10 Urine Appearance Clear (Clear) 05/15/19 16:10 Urine pH 6.0 (5.0-8.0) 05/15/19 16:10 Ur Specific [place] 1.029 (1.001-1.035) 05/15/19 16:10 Urine Protein Trace (Negative) H 05/15/19 16:10 Urine Glucose (UA) Negative (Negative) 05/15/19 16:10 Urine Ketones Trace (Negative) H 05/15/19 16:10 Urine Blood Small (Negative) H 05/15/19 16:10 Urine Nitrite Negative (Negative) 05/15/19 16:10 Urine Bilirubin Negative (Negative) 05/15/19 16:10 Urine Urobilinogen 2.0 mg/dL (<2.0) 05/15/19 16:10 Ur Leukocyte Esterase Small (Negative) H 05/15/19 16:10 Urine RBC 17 /hpf (0-5) H 05/15/19 16:10 Urine WBC 5 /hpf (0-5) 05/15/19 16:10 Urine Mucus Rare /hpf (None) H 05/15/19 16:10 Urine Opiates Screen Detected (NotDetected) H 05/15/19 16:10 Ur Oxycodone Screen Not Detected (NotDetected) 05/15/19 16:10 Urine Methadone Screen Not Detected (NotDetected) 05/15/19 16:10 Ur Propoxyphene Screen Not Detected (NotDetected) 05/15/19 16:10 Ur Barbiturates Screen Not Detected (NotDetected) 05/15/19 16:10 U Tricyclic Antidepress Detected (NotDetected) H 05/15/19 16:10 Ur Phencyclidine Scrn Not Detected (NotDetected) 05/15/19 16:10 Ur Amphetamines Screen Not Detected (NotDetected) 05/15/19 16:10 U Methamphetamines Scrn Not Detected (NotDetected) 05/15/19 16:10 U Benzodiazepines Scrn Detected (NotDetected) H 05/15/19 16:10 Urine Cocaine Screen Not Detected (NotDetected) 05/15/19 16:10 U Marijuana (THC) Screen Not Detected (NotDetected) 05/15/19 16:10 Microbiology 05/17/19 18:36 Urine,Catheterized Urine Culture - Final 05/17/19 14:18 Blood Blood Culture - Preliminary No Growth after 24 hours Assessment and Plan (1) Agitation Current Visit: Yes Status: Acute Code(s): R45.1 - RESTLESSNESS AND AGITATION SNOMED Code(s): 807806985 (2) Intractable low back pain Current Visit: Yes Status: Acute Code(s): M54.5 - LOW BACK PAIN SNOMED Code(s): 19927869221104805 (3) Compression fracture of L1 lumbar vertebra Current Visit: No Status: Acute Priority: Medium Code(s): S32.010A - WEDGE COMPRESSION FRACTURE OF FIRST LUMBAR VERTEBRA, INIT SNOMED Code(s): 986893885 (4) Paraproteinemia Narrative/Plan: 69-year-old woman presents to hospital with intractable back pain and delirium it has been seen by multiple consultants. Her orthopedic spine surgeon has followed her for some time regarding her significant degenerative disease to her spine apparently is not a surgical candidate at this time. She did have an acute change of her status and a code stroke was called and she's been seen by neurology. She's also been seen by pulmonary critical care. She did have a computed tomography scan of her abdomen and pelvis failed to reveal him to be severe pneumonic infiltrations. Is evidence of the single right kidney from her prior history of left renal cancer and removal years ago. She has evidence of some diverticulosis. Urinalysis is negative. Cultures are negative so far. Patient does not appear to have an underlying significant infectious etiology. As noted there is anat dence of the potential paraproteinemia. Unclear if this is contributing to her current constellation of symptoms. 05/18/2019 patient continues to feel poorly but is more awake alert and interactive. Cultures remained negative and workup but her paraproteinemia is in process. Remains afebrile. Current Visit: Yes Status: Acute Code(s): D89.2 - HYPERGAMMAGLOBULINEMIA, UNSPECIFIED SNOMED Code(s): 914989922
[2019-05-19] MEDS: ACETAMINOPHEN TAB 325 MG TAB PO PRN (00:37)
[2019-05-19 05:54] LABS: Basophils % (A) 0 %; Eosinophils # (A) 0.3 k/uL (0-0.7); Eosinophils % (A) 4 %; HCT 32.5 % (34.0-46.0); HGB 10.2 gm/dL (11.4-16.0); Hypochromasia Slight; Lymphocytes # (A) 1.1 k/uL (1.0-4.8); Lymphocytes % (A) 17 %; MCH 32.1 pg (25.0-35.0); MCHC 31.2 g/dL (31.0-37.0); MCV 102.8 fL (80.0-100.0); Macrocytosis Slight; Mean Platelet Volume 8.9; Monocytes # (A) 0.3 k/uL (0-1.0); Monocytes % (A) 4 %; Neutrophils # (A) 4.4 k/uL (1.3-7.7); Neutrophils % (A) 71 %; RBC 3.17 m/uL (3.80-5.40); RDW 15.8 % (11.5-15.5); WBC 6.2 k/uL (3.8-10.6)
[2019-05-19 05:57] LABS: Platelet Count 79 k/uL (150-450)
[2019-05-19 06:16] LABS: Calcium 7.8 mg/dL (8.4-10.2); Phosphorus 3.3 mg/dL (2.5-4.5); Potassium 3.8 mmol/L (3.5-5.1)
[2019-05-19] MEDS: INSULIN ASPART (NovoLOG) 100 UNIT/ML VIAL SQ SCH ×4 (06:42→20:47)
[2019-05-19] MEDS: SODIUM CHLORIDE 0.9% 1,000 ML IV SCH ×3 (06:42→17:42)
[2019-05-19] MEDS: PANTOPRAZOLE 40 MG TABLET PO SCH (06:42)
[2019-05-19 06:44] LABS: Glucose,Whole Blood 95 mg/dL (75-99)
--- NOTE | 2019-05-19 07:43 | XR ---
EXAMINATION TYPE: XR chest 1V portable DATE OF EXAM: 05/19/2019 Comparison: 05/18/2019 Clinical History: 69 year-old female shortness of breath Findings: Left anterior chest wall pacemaker generator with right atrial and right ventricular leads. There are low lung volumes with crowded vascular markings. Also, the patient is rotated towards the left and o bliqued. The left hemithorax is very diminutive as a result. Left base also underpenetrated. Impression: Limited exam due to patient's positioning and very low lung volumes. Unable to exclude left basilar e ffusion or atelectasis/consolidation.
[2019-05-19] MEDS: IPRATROPIUM-ALBUTEROL 3 ML NEB INHALATION SCH ×4 (08:04→20:50)
[2019-05-19] MEDS: PIPERACILLIN-TAZOBACTAM 3.375 GM in SODIUM CHLORIDE 0.9% 100 ML IVPB SCH ×3 (08:05→23:07)
[2019-05-19] MEDS: ALLOPURINOL 100 MG TAB PO SCH (09:19)
[2019-05-19] MEDS: APIXABAN 5 MG TAB PO SCH ×2 (09:19→17:31)
[2019-05-19] MEDS: ISOSORBIDE MONONITRATE ER 30 MG TAB.ER.24H PO SCH (09:19)
[2019-05-19] MEDS: MODAFINIL 100 MG TAB PO SCH (09:25)
[2019-05-19] MEDS: FUROSEMIDE 40 MG TAB PO SCH (09:25)
[2019-05-19] MEDS: GABAPENTIN 300 MG CAP PO SCH ×3 (09:25→20:46)
[2019-05-19] MEDS: NYSTATIN 100,000 UNIT/ML SUSP 500,000 UNIT/5 ML CUP PO SCH ×4 (09:26→20:48)
[2019-05-19] MEDS: METOPROLOL TARTRATE 25 MG TAB PO SCH ×3 (09:29→20:46)
--- NOTE | 2019-05-19 09:33 | P.PN ---
Subjective Progress Note Date: 05/19/19 This is a 69-year-old female who was admitted to the hospital with altered mental status. Patient has history of paroxysmal atrial fibrillation and also permanent pacemaker implantation. Patient mental status is improved. Patient was oriented to time and place. She was also conversing on the phone appr opriately. Patient went into atrial fibrillation this morning and also had short runs of wide complex rhythm. We are going to increase the dose of the beta vaibhav. Patient's medication for pain may have something to do with mental status changes. This is being addressed. From Cardec standpoint we'll continue to monitor. 05/19/2019. Patient is admitted to the hospital with altered mental status. His felt that could be related to some of the pain medication. Patient has history of paroxysmal fibrillation and also permanent pacemaker implantation and history of CHF. Patient had a brief episode of atrial fibrillation, yesterday. He is currently in atrial paced rhythm. Complaining of restless legs. No complaints of chest pain or shortness of breath. From cardiac point of view, We'll continue current dose of beta vaibhav and rest of the management as for the bond analyst . Objective - Vital Signs Vital signs: Vital Signs Temp 97.4 F L 05/19/19 08:00 Pulse 81 05/19/19 09:00 Resp 16 05/19/19 09:00 BP 121/64 05/19/19 09:00 Pulse Ox 94 L 05/19/19 08:00 Intake & Output 05/18/19 05/19/19 05/19/19 18:59 06:59 18:59 Intake Total 1520 200 Output Total 1620 60 Balance -100 140 Intake: IV 1400 200 Magnesium Sulfate-D5w Pmx 100 1 gm In Dextrose/Water 1 100ml.bag @ 100 mls/hr IVPB Q1H HI Rx#: [id number] Piperacillin-Tazobactam 3 100 .375 gm In Sodium Chloride 0.9% 100 ml @ 25 mls/hr IVPB Q8HR HI Rx# :[id number] Sodium Chloride 0.9% 1, 1200 200 000 ml @ 100 mls/hr IV . Q10H HI Rx#:[id number] Oral 120 Output: Urine 1620 60 Other: Voiding Method Indwelling Catheter Indwelling Catheter - Exam GENERAL EXAM: Patient is alert and oriented and doesn't appear to be in any acute distress HEENT: Normocephalic. Normal reaction of pupils, equal size, normal range of extraocular motion. No erythema or exudates in the throat. NECK: No masses, no nuchal rigidity. CHEST: No chest wall deformity. LUNGS: Equal air entry with no crackles or wheeze. HEART: S1 and S2 normal with no audible mumurs or gallops. Regular rhythm, femorals equal on both sides.. ABDOMEN: No hepatosplenomegaly, normal bowel sounds, no guarding or rigidity. SKIN: No rashes CENTRAL NERVOUS SYSTEM: No focal deficits. EXTREMITIES: No cyanosis, clubbing or edema. - Labs CBC & Chem 7: 05/19/19 05:42 05/19/19 05:42 Labs: Abnormal Lab Results - Last 24 Hours (Table) 05/18/19 05/18/19 05/18/19 Range/Units 11:54 17:22 20:40 RBC (3.80-5.40) m/uL Hgb (11.4-16.0) gm/dL Hct (34.0-46.0) % MCV (80.0-100.0) fL RDW (11.5-15.5) % Plt Count (150-450) k/uL Chloride (98-107) mmol/L BUN (7-17) mg/dL Creatinine (0.52-1.04) mg/dL POC Glucose (mg/dL) 164 H 113 H 206 H (75-99) mg/dL Calcium (8.4-10.2) mg/dL 05/19/19 05/19/19 Range/Units 05:42 05:42 RBC 3.17 L (3.80-5.40) m/uL Hgb 10.2 L (11.4-16.0) gm/dL Hct 32.5 L (34.0-46.0) % MCV 102.8 H (80.0-100.0) fL RDW 15.8 H (11.5-15.5) % Plt Count 79 L (150-450) k/uL Chloride 110 H (98-107) mmol/L BUN 40 H (7-17) mg/dL Creatinine 1.13 H (0.52-1.04) mg/dL POC Glucose (mg/dL) (75-99) mg/dL Calcium 7.8 L (8.4-10.2) mg/dL Microbiology - Last 24 Hours (Table) 05/17/19 18:36 Urine Culture - Final Urine,Catheterized 05/17/19 14:18 Blood Culture - Preliminary Blood No Growth after 24 hours Assessment and Plan (1) Paroxysmal atrial fibrillation Current Visit: Yes Status: Acute Code(s): I48.0 - PAROXYSMAL ATRIAL FIBR ILLATION SNOMED Code(s): 756359364 (2) Agitation Current Visit: Yes Status: Acute Code(s): R45.1 - RESTLESSNESS AND AGITATION SNOMED Code(s): 863941590 (3) Essential hypertension Current Visit: No Status: Acute Code(s): I10 - ESSENTIAL (PRIMARY) HYPERT ENSION SNOMED Code(s): 75505556 (4) History of coronary artery bypass graft Current Visit: No Status: Acute Code(s): Z95.1 - PRESENCE OF AORTOCORONARY BYPASS GRAFT SNOMED Code(s): 154924018 (5) History of heart failure Current Visit: No Status: Acute Code(s): Z86.79 - PERSONAL HISTORY OF OTHER DISEASES OF THE CIRCULATORY SYSTEM SNOMED Code(s): 078619115 (6) History of myocardial infarction Current Visit: No Status: Acute Code(s): I25.2 - OLD MYOCARDIAL INFARCTION SNOMED Code(s): 085070116 Plan: Patient has history of paroxysmal atrial fibrillation, currently back in sinus rhythm with atrial pacing. Doesn't appear to be in congestive heart failure. Will follow
[2019-05-19 11:52] LABS: Glucose,Whole Blood 182 mg/dL (75-99)
[2019-05-19] MEDS: Acetaminophen-Codeine 300-30mg TAB PO PRN ×2 (13:09→20:46)
[2019-05-19] MEDS: HYDROcodone/APAP 10-325MG 1 EACH TAB PO PRN (15:26)
--- NOTE | 2019-05-19 16:06 | P.PAINCN ---
History of Present Illness - Reason for Consult Consult date: 05/19/19 - History of Present Illness This is 69 years old female with a chronic history of severe low back pain, and she is diagnosed with compression fracture of lumbar spine and lumbar spinal stenosis and lumbar radiculopathy, and myofascial pain syndrome lumbar area, she was treated at the pain service [facility], and previously we have done lumbar epidural steroid injection and trigger point injection, and she had short-term benefit from it, we plan to schedule her as an outpatient to do diagnostic medial branch block lumbar area, patient was admitted currently with intractable low back pain, and agitation, and patient currently on pain medication [place] 10/325 every 6 hours and Neurontin 300 mg 3 times a day, patient currently on ELIQUIS , because she had a history of A. fib, Past Medical History Past Medical History: Atrial Fibrillation, Cancer, Chest Pain / Angina, Heart Failure, COPD, Fibromyalgia, GERD/Reflux, Myocardial Infarction ([place]), Osteoarthritis (OA), Pneumonia, Sleep Apnea/CPAP/BIPAP Additional Past Medical History / Comment(s): Chronic low back pain which radiates down bilateral legs, lumbar disc disease, spondylosis, lumbar compression fracture, myofascial pain syndrome, generalized arthritis, migraines, gout bilateral feet, osteoporosis, frequent falls, chronic urine retention/incontinence/has bladder stimulator, 1972 R renal cancer with nephrectomy, anemia, cardiac murmur, home oxygen at 2-3L/NC ATC, KOFFI but device is broken, vertigo, narcolepsy, IBS, Last Myocardial Infarction Date:: 2004 History of Any Multi-Drug Resistant Organisms: None Reported Past Surgical History: Appendectomy, Coronary Bypass/CABG, Heart Catheterizat ion, Orthopedic Surgery, Pacemaker Additional Past Surgical History / Comment(s): Rt nephrectomy, lumber epidural injections-last one 03/07/19, bladder stimulator, fabricio carpal tunnel releases, surgery on left hand, 1 vessel CABG 2004, fabricio cataracts with lens implants, colonoscopy. Past Anesthesia/Blood Transfusion Reactions: Previous Problems w/ Anesthesia Additional Past Anesthesia/Blood Transfusion Reaction / Comm: Pt has received blood in past without reaction. Type of Cardiac Device: Permanent Pacemaker Device Placement Date:: 2006 Past Psychological History: Anxiety Smoking Status: Never smoker Past Alcohol Use History: None Reported Past Drug Use History: None Reported - Past Family History Mother Family Medical History: Diabetes Mellitus, Hypertension, Renal Disease Father Additional Family Medical History / Comment(s): Father comitted suicide. Family Family Medical History: Coronary Artery Disease (CAD) Medications and Allergies Home Medications Medication Instructions Recorded Confirmed Type Allopurinol [Zyloprim] 100 mg PO DAILY@0800 02/03/19 05/15/19 History Aspirin [[place] Aspirin EC] 81 mg PO DAILY@1700 02/03/19 05/15/19 History Carbidopa/Levodopa [Sinemet 25-250 3 - 4 tab PO DAILY PRN 02/03/19 05/15/19 History mg] Escitalopram [Lexapro] 20 mg PO HS@209902/03/19 05/15/19 History Isosorbide Mononitrate ER [Imdur] 30 mg PO DAILY@0800 02/03/19 05/15/19 History Ferrous Sulfate [Iron] 325 mg PO DAILY@1700 03/01/19 05/15/19 History Nitroglycerin Sl Tabs [Nitrostat] 0.4 mg SUBLINGUAL Q5M PRN 03/01/19 05/15/19 History Omeprazole [PriLOSEC] 40 mg PO DAILY@0600 03/01/19 05/15/19 History rOPINIRole HCL [Requip] 5 mg PO QID 03/01/19 05/15/19 History Apixaban [Eliquis] 5 mg PO BID@0800,1700 05/15/19 05/15/19 History Atorvastatin [Lipitor] 40 mg PO HS@209905/15/19 05/15/19 History Bisacodyl [Dulcolax] 10 mg RECTAL DAILY PRN 05/15/19 05/15/19 History Gabapentin [Neurontin] 100 mg PO TID@0600,1400,209905/15/19 05/15/19 History HYDROcodone/APAP 10-325MG [[place] 1 - 2 tab PO Q6H PRN 05/15/19 05/15/19 History 10-325] Magnesium Hydroxide [Milk of 7,200 mg PO ONCE PRN 05/15/19 05/15/19 History Magnesia Concentrate] Metoprolol Tartrate [Lopressor] 25 mg PO BID@0800,1700 05/15/19 05/15/19 History Modafinil [Provigil] 100 mg PO DAILY PRN 05/15/19 05/15/19 History Na Phos,M-B/Na Phos,Di-Ba [Fleet 133 ml RECTAL DAILY PRN 05/15/19 05/15/19 History Adult] Nystatin 500,000 unit PO QID 05/15/19 05/15/19 History Nystatin [Nystop] 1 applic TOPICAL DAILY PRN 05/15/19 05/15/19 History predniSONE See Taper PO DAILY@1200 05/15/19 05/15/19 History Allergies Allergy/AdvReac Type Severity Reaction Status Date / Time adhesive tape Allergy skin peels Verified 05/15/19 17:47 off Fish Containing Products Allergy Nausea Verified 05/15/19 17:47 [Fish] Sulfa (Sulfonamide Allergy Unknown Verified 05/15/19 17:47 Antibiotics) Physical Exam Vitals: Vital Signs Temp Pulse Resp BP Pulse Ox 05/19/19 15:00 61 23 96 05/19/19 14:00 60 24 89/52 97 05/19/19 13:00 97.9 F 64 36 H 89/52 94 L 05/19/19 12:00 60 24 128/82 05/19/19 11:44 67 05/19/19 11:33 67 05/19/19 11:00 61 23 05/19/19 10:00 61 18 121/63 05/19/19 09:00 81 16 121/64 05/19/19 08:14 61 05/19/19 08:04 63 05/19/19 08:00 97.4 F L 62 18 130/106 94 L 05/19/19 04:00 60 20 102/60 94 L 05/19/19 03:00 75 74 H 84/42 89 L 05/19/19 02:00 63 15 91/50 96 05/19/19 01:00 76 18 79/54 94 L 05/19/19 00:00 69 36 H 98/84 95 05/18/19 23:11 65 28 H 84/57 95 05/18/19 23:00 61 23 99/41 95 05/18/19 22:00 62 24 77/47 95 05/18/19 21:00 60 24 102/62 95 05/18/19 20:00 63 36 H 112/69 92 L 05/18/19 19:15 60 05/18/19 19:01 60 05/18/19 19:00 60 20 109/83 94 L 05/18/19 18:00 60 20 121/88 94 L 05/18/19 17:00 60 17 102/52 94 L 05/18/19 16:00 97.7 F 67 15 119/62 95 05/18/19 15:56 60 Intake and Output 05/19/19 05/19/19 05/19/19 06:59 14:59 22:59 Intake Total 800 100 Output Total 300 Balance 500 100 Intake: IV 800 100 Piperacillin-Tazobactam 3 100 .375 gm In Sodium Chloride 0.9% 100 ml @ 25 mls/hr IVPB Q8HR HI Rx# :[id number] Sodium Chloride 0.9% 1, 700 100 000 ml @ 100 mls/hr IV . Q10H HI Rx#:[id number] Output: Urine 300 Other: Voiding Method Indwelling Catheter Indwelling Catheter # Voids 1 # Bowel Movements 1 Weight 103.1 kg Physical Examinations : -Constitutiona : Cooperative , not in acute distress . -HEENT : nech ; supple , no Lymphadenopathy , normal thyroid size . eyes : no ptosis , no icterus, no photophobia . ENT : normal of hearing , normal oropharynx , no Thrush . - Respiratory : Chest clear to auscultations Bilaterally , no wheezing , no Rhonchi . - Cardiovascula : regular rate and rhythem , S1 , S2 , no S3 , no S4. - Gastrointestina : abdomen soft no tenderness , bowel sounds , no organomegally . - Genitourinary : Defferred . - neurologic : Cranial nerve II to XII intact , no focal neurological deffecit . -psychatric : alert , oriented X 3 , appropriate affect , intact judgment and insight . -Lymphatic : no Lymphadenopathy . - musculoskeltal : Lumber spine moter stegnth lower extremities ,thigh and legs 3-4/5 Right side , 4/5 Left side deep tendon reflexes : normal Knee Jerk , normal ankle Jerk positive lumber facet Loading Test Range of motion of the lumbar spine Flexion 30 degrees, extension 10 degrees strait leg raising test , positive at 30 degree Fabere test positive RT and positive LT . Sever tenderness over the Sacroiliac joint on the R and L sides multiple trigger points in the lumbar paravertebral muscles Results CBC & Chem 7: 05/19/19 05:42 05/19/19 05:42 Labs: Abnormal Lab Results - Last 24 Hours (Table) 05/18/19 05/18/19 05/19/19 Range/Units 17:22 20:40 05:42 RBC 3.17 L (3.80-5.40) m/uL Hgb 10.2 L (11.4-16.0) gm/dL Hct 32.5 L (34.0-46.0) % MCV 102.8 H (80.0-100.0) fL RDW 15.8 H (11.5-15.5) % Plt Count 79 L (150-450) k/uL Chloride (98-107) mmol/L BUN (7-17) mg/dL Creatinine (0.52-1.04) mg/dL POC Glucose (mg/dL) 113 H 206 H (75-99) mg/dL Calcium (8.4-10.2) mg/dL 05/19/19 05/19/19 Range/Units 05:42 11:50 RBC (3.80-5.40) m/uL Hgb (11.4-16.0) gm/dL Hct (34.0-46.0) % MCV (80.0-100.0) fL RDW (11.5-15.5) % Plt Count (150-450) k/uL Chloride 110 H (98-107) mmol/L BUN 40 H (7-17) mg/dL Creatinine 1.13 H (0.52-1.04) mg/dL POC Glucose (mg/dL) 182 H (75-99) mg/dL Calcium 7.8 L (8.4-10.2) mg/dL Microbiology - Last 24 Hours (Table) 05/17/19 18:36 Urine Culture - Final Urine,Catheterized 05/17/19 14:18 Blood Culture - Preliminary Blood No Growth after 24 hours Assessment and Plan Plan: Assessment and plan= low back pain secondary to multifactorial causes , lumbar degenerative disc disease ,lumbar compression fracture ,and lumbar spinal stenosis, and lumbar spondylosis, patient had no benefit from lumbar epidural steroid injection and trigger point injection,x2 , and patient was scheduled to have diagnostic medial branch block as an outpatient, recommend continue [place] 10/325 every 6 hours when necessary and Neurontin 300 mg 3 times a day, and patient can be seen as an outpatient we'll do diagnostic medial branch block lumbar area and if it is positive, then we will proceed with RFA of the medial branch lumbar area, Time with Patient: Less than 30 PQRS Measure Charge Sheet PQRS Narrative: Smoking Status Never smoker Do You Want the Pneumonia Vaccine Up to Date Vaccine AT THIS TIME? Narcotic Agreement Date Signed 03/29/19 Blood Pressure [Right Arm] 89/51 Blood Pressure [Right Arm 109/71 Supine] Blood Pressure 89/52 Pain Intensity [Back] 10 Pain Intensity 10 Pain Scale Used Numeric (1 - 10) Scale Used Numeric (1 - 10) Hx Alcohol Use (MH) No Home Medications: Ambulatory Orders Allopurinol [Zyloprim] 100 mg PO DAILY@0802/03/19 Aspirin [[place] Aspirin EC] 81 mg PO DAILY@169902/03/19 Carbidopa/Levodopa [Sinemet 25-250 mg] 3 - 4 tab PO DAILY PRN 02/03/19 Escitalopram [Lexapro] 20 mg PO HS@209902/03/19 Isosorbide Mononitrate ER [Imdur] 30 mg PO DAILY@0802/03/19 Ferrous Sulfate [Iron] 325 mg PO DAILY@169903/01/19 Nitroglycerin Sl Tabs [Nitrostat] 0.4 mg SUBLINGUAL Q5M PRN 03/01/19 Omeprazole [PriLOSEC] 40 mg PO DAILY@0603/01/19 rOPINIRole HCL [Requip] 5 mg PO QID 03/01/19 Apixaban [Eliquis] 5 mg PO BID@0800,169905/15/19 Atorvastatin [Lipitor] 40 mg PO HS@209905/15/19 Bisacodyl [Dulcolax] 10 mg RECTAL DAILY PRN 05/15/19 Gabapentin [Neurontin] 100 mg PO TID@0600,1400,209905/15/19 HYDROcodone/APAP 10-325MG [[place] 10-325] 1 - 2 tab PO Q6H PRN 05/15/19 Magnesium Hydroxide [Milk of Magnesia Concentrate] 7,200 mg PO ONCE PRN 05/15/19 Metoprolol Tartrate [Lopressor] 25 mg PO BID@0800,169919 Modafinil [Provigil] 100 mg PO DAILY PRN 05/15/19 Na Phos,M-B/Na Phos,Di-Ba [Fleet Adult] 133 ml RECTAL DAILY PRN 05/15/19 Nystatin 500,000 unit PO QID 05/15/19 Nystatin [Nystop] 1 applic TOPICAL DAILY PRN 05/15/19 predniSONE See Taper PO DAILY@1200 05/15/19
[2019-05-19 16:58] LABS: Glucose,Whole Blood 110 mg/dL (75-99)
[2019-05-19] MEDS: FERROUS SULFATE 325 MG TAB PO SCH (17:31)
[2019-05-19] MEDS: ASPIRIN 81 MG PO SCH (17:31)
[2019-05-19] MEDS: ATORVASTATIN 40 MG TAB PO SCH (20:46)
[2019-05-19 20:47] LABS: Glucose,Whole Blood 202 mg/dL (75-99)
[2019-05-19] MEDS: ESCITALOPRAM 20 MG TAB PO SCH (20:47)
--- NOTE | 2019-05-19 21:16 | P.PN ---
Progress Note - Text Progress Note Date: 05/19/19 Interval history: Admitted with metabolic encephalopathy. To be from pain medications. Infecti ous etiology felt to be unlikely. Also had a brief run of atrial fibrillation. Today-patient is awake. Complaining of increased restless leg. Her dose of Neurontin was increased by the neurologist at 300 mg 3 times a day and dose of Requip was cut back. Patient did tolerate some diet. Laying in bed. Awake. Review of systems: Was done for constitutional, cardiovascular, GI, pulmonary. Musculoskeletal relevant finding as above Current medications reviewed that included DuoNeb, Eliquis, aspirin, by mouth Lasix, Neurontin 300 mg 3 times a day, [place] 10 every 6 when necessary, Lopressor 25 mg 3 times a day, Provigil, IV Zosyn, Requip 1 mg 3 times a day On examination: VITAL SIGNS: 97.9, 64, 86, 89 x 52, 94% on 3 L GENERAL APPEARANCE: . Lying in bed, awake, a bit uncomfortable. HEENT: Normal external appearance of nose and ear. Oral cavity normal EYES: Pupils equal. Conjunctiva normal. NECK: JVD not raised. Mass not palpable. RESPIRATORY: Respiratory effort normal. Lungs decreased breath sounds. CARDIOVASCULAR: First and second sounds normal. No edema. ABDOMEN: Soft. Liver and spleen not palpable. No tenderness. No mass palpable. PSYCHIATRY: Alert and oriented x3. Anxious Neurological: Both legs are constantly moving about Investigations: . White count 6.2 hemoglobin 10.2 platelet 79 potassium 3.8 BUN 40 creatinine 1.13 Assessment: Acute metabolic encephalopathy multifactorial including primarily medications -Acute congestive heart exacerbation from diastolic dysfunction EF 50-55% -Chronic L1 compression fracture -COPD in a nonsmoker -Obstructive sleep apnea but does not use CPAP machine -Chronic narcolepsy -Chronic bladder dysfunction with stability in place -Coronary artery disease prior history: Bypass -Permanent pacemaker -Chronic hypercapnic respiratory failure on home oxygen -Chronic fibromyalgia -Renal cell carcinoma with right nephrectomy -GERD Acute exacerbation of restless leg syndrome -Thrombocytopenia Plan: Discuss with Dr. Bridges neurology. Will cut back on the dose of Neurontin to 200 mg 3 times a day skipping the dose tonight. We will increase his dose of Requip to 2 mg 3 times a day starting tonight. Insulin was about Neurontin building up in setting of renal failure.
[2019-05-20] MEDS: HYDROcodone/APAP 10-325MG 1 EACH TAB PO PRN (01:16)
[2019-05-20] MEDS: SODIUM CHLORIDE 0.9% 1,000 ML IV SCH (05:32)
[2019-05-20] MEDS: Acetaminophen-Codeine 300-30mg TAB PO PRN (05:36)
[2019-05-20] MEDS: PANTOPRAZOLE 40 MG TABLET PO SCH (05:37)
[2019-05-20 05:47] LABS: Basophils % (A) 0 %; Eosinophils # (A) 0.3 k/uL (0-0.7); Eosinophils % (A) 4 %; HCT 33.7 % (34.0-46.0); HGB 10.4 gm/dL (11.4-16.0); Hypochromasia Moderate; Lymphocytes # (A) 1.2 k/uL (1.0-4.8); Lymphocytes % (A) 16 %; MCH 32.2 pg (25.0-35.0); MCHC 30.9 g/dL (31.0-37.0); MCV 104.3 fL (80.0-100.0); Macrocytosis Moderate; Mean Platelet Volume 8.4; Monocytes # (A) 0.2 k/uL (0-1.0); Monocytes % (A) 3 %; Neutrophils % (A) 76 %; RBC 3.23 m/uL (3.80-5.40); RDW 15.6 % (11.5-15.5); WBC 7.9 k/uL (3.8-10.6)
[2019-05-20 05:49] LABS: Platelet Count 72 k/uL (150-450)
[2019-05-20 06:00] LABS: Calcium 7.8 mg/dL (8.4-10.2); Potassium 4.1 mmol/L (3.5-5.1)
[2019-05-20 06:54] LABS: Glucose,Whole Blood 117 mg/dL (75-99)
[2019-05-20] MEDS: INSULIN ASPART (NovoLOG) 100 UNIT/ML VIAL SQ SCH ×2 (07:08→13:19)
[2019-05-20] MEDS: IPRATROPIUM-ALBUTEROL 3 ML NEB INHALATION SCH ×2 (08:16→11:34)
[2019-05-20] MEDS: ISOSORBIDE MONONITRATE ER 30 MG TAB.ER.24H PO SCH (09:10)
[2019-05-20] MEDS: ALLOPURINOL 100 MG TAB PO SCH (09:10)
[2019-05-20] MEDS: FUROSEMIDE 40 MG TAB PO SCH (09:10)
[2019-05-20] MEDS: APIXABAN 5 MG TAB PO SCH (09:10)
[2019-05-20] MEDS: MODAFINIL 100 MG TAB PO SCH (09:10)
[2019-05-20] MEDS: PIPERACILLIN-TAZOBACTAM 3.375 GM in SODIUM CHLORIDE 0.9% 100 ML IVPB SCH (09:11)
[2019-05-20] MEDS: GABAPENTIN 100 MG CAP PO SCH ×2 (09:11→09:12)
[2019-05-20] MEDS: METOPROLOL TARTRATE 25 MG TAB PO SCH (09:11)
[2019-05-20] MEDS: NYSTATIN 100,000 UNIT/ML SUSP 500,000 UNIT/5 ML CUP PO SCH ×2 (09:13→13:20)
--- NOTE | 2019-05-20 11:10 | P.DS ---
Providers Date of admission: 05/17/19 13:48 Expected date of discharge: 05/20/19 Attending physician: Nasim Colon Consults: 05/15/19 20:06 Consult Physician Stat Consulting Provider: Raquel Shankar Consult Reason/Comments: Delirium, agitation Do you want consulting provider notified?: Yes Consult Physician Stat Consulting Provider: Mark Anthony Bridges Consult Reason/Comments: delirium, uncontrolled back pain Do you want consulting provider notified?: Yes, Notify in am 05/15/19 20:09 Consult Physician Stat Consulting Provider: Brando Oro Consult Reason/Comments: intractable back pain Do you want consulting provider notified?: Yes, Notify in am 05/16/19 17:52 Consult Physician Stat Consulting Provider: Jefferson Fry Consult Reason/Comments: CHF Do you want consulting provider notified?: Yes 05/17/19 13:36 Consult Physician Routine Consulting Provider: David Junior Consult Reason/Comments: pneumonia/sepsis Do you want consulting provider notified?: Yes 05/17/19 13:37 Consult Physician Routine Consulting Provider: Chip James Consult Reason/Comments: pneumonia Do you want consulting provider notified?: Yes 05/19/19 12:14 Consult Physician Routine Consulting Provider: Josefina Urban Consult Reason/Comments: pain management Do you want consulting provider notified?: Yes Primary care physician: [facility] Course: Hospital course: Patient medically with increasing back pain and altered mental status. [place] to be metabolic encephalopathy from multiple medications. Patient doesn't recall was cut back. And then reintroduce. Patient's pain is well-controlled and restless leg syndrome is well controlled. Patient initially was given antibiotics then discontinued. No obvious source of infection was found. Stevenson escamilla was seen by neurology. Computed tomography scan of the brain did not show anything acute. EEG didn't show encephalopathy findings. No seizures. Computed tomography scan of the abdomen and pelvis did not show any acute finding. EKG showed paced rhythm. Today I discussed with the patient patient. Pain is controlled. Restless leg syndrome controlled. Happy with the current medications. Discussion discharge planning more than 35 minutes On examination: Temperature 97.7 pulse 62, 18, 141/79, 96% on 3 L Laying in bed awake Heart sounds are regular Lungs fair entry Labs: Hemoglobin 10.4, platelets 72 BUN 35 creatinine 1.10 Patient Condition at Discharge: Stable Plan - Discharge Summary Discharge Rx Participant: No New Discharge Prescriptions: New Ipratropium-Albuterol Nebulize [Duoneb 0.5 mg-3 mg/3 ml Soln] 3 ml INHALATION TID #1 ampul.neb rOPINIRole HCL [Requip] 2 mg PO TID tab Furosemide [Lasix] 20 mg PO DAILY #1 tab Continue Escitalopram [Lexapro] 20 mg PO HS@2100 Carbidopa/Levodopa [Sinemet 25-250 mg] 3 - 4 tab PO DAILY PRN PRN Reason: restless legs Allopurinol [Zyloprim] 100 mg PO DAILY@0800 Isosorbide Mononitrate ER [Imdur] 30 mg PO DAILY@0800 Aspirin [[place] Aspirin EC] 81 mg PO DAILY@1700 Omeprazole [PriLOSEC] 40 mg PO DAILY@0600 Ferrous Sulfate [Iron] 325 mg PO DAILY@1700 Nitroglycerin Sl Tabs [Nitrostat] 0.4 mg SUBLINGUAL Q5M PRN PRN Reason: Chest Pain Nystatin [Nystop] 1 applic TOPICAL DAILY PRN PRN Reason: GROIN,UNDER BREASTS Na Phos,M-B/Na Phos,Di-Ba [Fleet Adult] 133 ml RECTAL DAILY PRN PRN Reason: Constipation Bisacodyl [Dulcolax] 10 mg RECTAL DAILY PRN PRN Reason: Constipation Nystatin 500,000 unit PO QID Apixaban [Eliquis] 5 mg PO BID@0800,1700 Atorvastatin [Lipitor] 40 mg PO HS@2100 Gabapentin [Neurontin] 100 mg PO TID@0600,1400,2100 #9 capsule HYDROcodone/APAP 10-325MG [[place] 10-325] 1 - 2 tab PO Q6H PRN #12 tab PRN Reason: Pain Modafinil [Provigil] 100 mg PO DAILY PRN #3 tablet PRN Reason: SLEEPINESS Changed Metoprolol Tartrate [Lopressor] 25 mg PO TID #0 Discontinued rOPINIRole HCL [Requip] 5 mg PO QID Magnesium Hydroxide [Milk of Magnesia Concentrate] 7,200 mg PO ONCE PRN PRN Reason: Constipation predniSONE See Taper PO DAILY@1200 Discharge Medication List Allopurinol [Zyloprim] 100 mg PO DAILY@0800 03/07/19 [History] Aspirin [[place] Aspirin EC] 81 mg PO DAILY@1700 02/03/19 [History] Carbidopa/Levodopa [Sinemet 25-250 mg] 3 - 4 tab PO DAILY PRN 02/03/19 [History] Escitalopram [Lexapro] 20 mg PO HS@209902/03/19 [History] Isosorbide Mononitrate ER [Imdur] 30 mg PO DAILY@0802/03/19 [History] Ferrous Sulfate [Iron] 325 mg PO DAILY@169903/01/19 [History] Nitroglycerin Sl Tabs [Nitrostat] 0.4 mg SUBLINGUAL Q5M PRN 03/01/19 [History] Omeprazole [PriLOSEC] 40 mg PO DAILY@0603/01/19 [History] Apixaban [Eliquis] 5 mg PO BID@0800,1700 05/15/19 [History] Atorvastatin [Lipitor] 40 mg PO HS@209905/15/19 [History] Bisacodyl [Dulcolax] 10 mg RECTAL DAILY PRN 05/15/19 [History] Na Phos,M-B/Na Phos,Di-Ba [Fleet Adult] 133 ml RECTAL DAILY PRN 05/15/19 [History] Nystatin 500,000 unit PO QID 05/15/19 [History] Nystatin [Nystop] 1 applic TOPICAL DAILY PRN 05/15/19 [History] Furosemide [Lasix] 20 mg PO DAILY #1 tab 05/20/19 [Rx] Gabapentin [Neurontin] 100 mg PO TID@0600,1400,2099 #9 capsule 05/20/19 [Rx] HYDROcodone/APAP 10-325MG [[place] 10-325] 1 - 2 tab PO Q6H PRN #12 tab 05/20/19 [Rx] Ipratropium-Albuterol Nebulize [Duoneb 0.5 mg-3 mg/3 ml Soln] 3 ml INHALATION TID #1 ampul.neb 05/20/19 [Rx] Metoprolol Tartrate [Lopressor] 25 mg PO TID #0 05/20/19 [Rx] Modafinil [Provigil] 100 mg PO DAILY PRN #3 tablet 05/20/19 [Rx] rOPINIRole HCL [Requip] 2 mg PO TID tab 05/20/19 [Rx] Follow up Appointment(s)/Referral(s): cardiology,dr [Other] - 2 Weeks Jason Weiss DO [Primary Care Provider] - 1-2 days Brayden Myrick PAC [PHYSICIAN SPECIAL INVESTIGATION UNIT INVESTIGATOR] - 2 Weeks (Patient may follow-up with Brayden Myrick PA-C or Dr. Panchito Oro at [facility] in 2-3 weeks following discharge. )
--- NOTE | 2019-05-20 11:23 | PN ---
PROGRESS NOTE DATE OF SERVICE: 05/20/2019 I had the pleasure of re-evaluating Krista Carrera, the patient is currently in the ICU although has apparently been written for transfer and awaiting a bed on the medical floor. The patient is doing quite well at this time, she is alert and actually has multiple pieces of paper over her lap in bed where she is writing notes, preparing to organize her 's . She was also holding her cell phone in her hands when I enter the room. She stated last night her nephew was in and stated that she looked "the best I have looked in a long time" according to him. The patient currently denies headache, she does have back pain, but states the restless leg complaints are significantly improved. I did discuss the patient's case with Dr. Colon over the phone last night and we made a mutual decision to reduce the patient's Neurontin dose to 200 mg t.i.d. and increase Requip to 2 mg t.i.d. The patient asked me if she would be able to return to [facility] soon. CURRENT MEDICATIONS: Tylenol, Tylenol No. 3, DuoNeb, Zyloprim, Eliquis, aspirin 81 mg q. day, Lipitor, Dulcolax, Lexapro, Feosol, Lasix, Neurontin 200 mg t.i.d., [place], NovoLog, Imdur, Toradol, milk of magnesia, Lopressor, Provigil, Nitrostat p.r.n., Protonix, piperacillin/tazobactam, Requip 2 mg t.i.d. PHYSICAL EXAM: The patient is lying in bed, quite alert, has been writing notes on pieces of paper in an attempt to organized her 's . The patient is morbidly obese, appropriate, answers questions readily and follows commands. The patient has her head tipped to the left, which I have noted through the course of this hospitalization. When I inquired about this, she stated that this position makes her back feel more comfortable. VITAL SIGNS: Blood pressure is 103/66 with pulse of 60, respiratory rate 12, temperature is 97.5 (the patient has been afebrile through the course of this hospitalization). HIGHER CORTICAL FUNCTION: MENTAL STATUS: The patient is alert, oriented to self. She knew she was in a hospital in [place]. She knew the year, month and could name the current president. She was able to name and repeat. There was no aphasia or dysarthria. CRANIAL NERVES II through XII are intact. MOTOR EXAMINATION: The patient has limited movement of the proximal left upper extremity related to local shoulder issues. She readily picked up the right upper extremity without drift. There is reduced bulk in the intrinsic muscles with normal tone and no involuntary movements are noted. Strength is at least 4+/5 involving the right upper extremity and least some 4- to 4 involving the left upper extremity which is limited by pain. In the lower extremities, strength is at least 4+/5, the patient initially demonstrates ratchety give-away weakness involving the left lower extremity, which improves with encouragement. Plantar responses flexor bilaterally. Dixon's is absent. COORDINATION: Finger to nose movements are intact within the limits of the proximal left upper extremity shoulder issues. Rapid alternating movements are symmetrical with finger and foot tapping. DIAGNOSTIC TESTING: The patient lab work demonstrates a white blood count of 7.9 with a hemoglobin of 10.4, platelet count 72. Sodium 143, potassium 4.1, BUN 35 (down from 40 yesterday), creatinine 1.1. The patient's blood and urine cultures have demonstrated no growth. IMPRESSION: 1. Encephalopathy in the setting of polypharmacy, prerenal azotemia, sleep deprivation and recent grief reaction related to the loss of her on 05/06/2019. 2. Unresponsive episode on the medical floor, associated with hypotension/hypercarbia, resolved. The patient is quite alert, appropriate, conversant, and oriented at this time. The patient did have a followup CT of the brain completed following this event, which was unrevealing. 3. Intractable back/lower extremity pain with history of L1 compression fracture, fibromyalgia, osteoarthritis, neuropathy, plantar fasciitis, and restless legs syndrome. 4. Refractory restless legs syndrome with augmentation. With adjustment in the patient's Requip and Neurontin dose, she states these symptoms have improved and she slept well last night. 5. History of narcolepsy, maintained on Provigil. 6. Paroxysmal atrial fibrillation. The patient is on Eliquis/aspirin. RECOMMENDATION: 1. Case was discussed with the patient and nursing staff. 2. Last night, case was discussed with Dr. Colon and medication adjustments were made as discussed above, including reducing the gabapentin and slightly increasing the Requip dose. 3. Treatment of medical issues/gentle hydration per primary service. 4. Minimize sedative/narcotic medication if possible. 5. Increase activity as tolerated, the patient was up in a chair yesterday, she will certainly require therapy for deconditioning and today stated she was anxious to return to [facility]. 6. Please feel free to contact me if there are further questions from a neurologic standpoint. Thank you for allowing me to participate in the care of your patient. GELACIOL / IJN: [id number] / [email or web address]
[2019-05-20 11:40] LABS: Glucose,Whole Blood 204 mg/dL (75-99)
[2019-05-20 12:01] LABS: Glucose,Whole Blood 249 mg/dL (75-99)
[2019-05-20 12:43] VITALS: BP 107/76; PULSE 60; RESP 16; TEMP 98
== END 2019-05-20 14:07 | DRG 91 ==
LOC: EC 15:27 → 4SSUR 20:35 → 2SICU 05-17 13:31 → OBSVTOIN 05-17 13:48
PROVIDERS: ADMIT Hospitalist; ATTEND Hospitalist
PROC: 05HB33Z Insertion of Infusion Device into Right Basilic Vein, Percutaneous Approach (ICD-10-PCS; principal; 2019-05-17 14:30)
DX: G92 Toxic encephalopathy (principal); I50.33 Acute on chronic diastolic (congestive) heart failure; Z68.42 Body mass index [BMI] 45.0-49.9, adult; J96.12 Chronic respiratory failure with hypercapnia; J96.11 Chronic respiratory failure with hypoxia; J98.11 Atelectasis; E66.01 Morbid (severe) obesity due to excess calories; I95.9 Hypotension, unspecified; D69.6 Thrombocytopenia, unspecified; G62.9 Polyneuropathy, unspecified; D47.2 Monoclonal gammopathy; I11.0 Hypertensive heart disease with heart failure; I49.5 Sick sinus syndrome; I48.0 Paroxysmal atrial fibrillation; J44.9 Chronic obstructive pulmonary disease, unspecified; I08.3 Combined rheumatic disorders of mitral, aortic and tricuspid valves; R16.1 Splenomegaly, not elsewhere classified; D64.9 Anemia, unspecified; K58.1 Irritable bowel syndrome with constipation; I25.10 Atherosclerotic heart disease of native coronary artery without angina pectoris; G47.33 Obstructive sleep apnea (adult) (pediatric); E78.5 Hyperlipidemia, unspecified; G89.4 Chronic pain syndrome; M47.27 Other spondylosis with radiculopathy, lumbosacral region; M48.07 Spinal stenosis, lumbosacral region; M48.061 Spinal stenosis, lumbar region without neurogenic claudication; M47.26 Other spondylosis with radiculopathy, lumbar region; M51.17 Intervertebral disc disorders with radiculopathy, lumbosacral region; M51.16 Intervertebral disc disorders with radiculopathy, lumbar region; T50.905A Adverse effect of unspecified drugs, medicaments and biological substances, initial encounter; F32.9 Major depressive disorder, single episode, unspecified; M79.7 Fibromyalgia; F43.20 Adjustment disorder, unspecified; M19.90 Unspecified osteoarthritis, unspecified site; G25.81 Restless legs syndrome; G47.419 Narcolepsy without cataplexy; F41.9 Anxiety disorder, unspecified; M10.9 Gout, unspecified; G43.909 Migraine, unspecified, not intractable, without status migrainosus; M72.2 Plantar fascial fibromatosis; R29.6 Repeated falls; R26.9 Unspecified abnormalities of gait and mobility; K21.9 Gastro-esophageal reflux disease without esophagitis; I25.2 Old myocardial infarction; M46.96 Unspecified inflammatory spondylopathy, lumbar region; M48.56XS Collapsed vertebra, not elsewhere classified, lumbar region, sequela of fracture; M81.0 Age-related osteoporosis without current pathological fracture; R33.9 Retention of urine, unspecified; K57.30 Diverticulosis of large intestine without perforation or abscess without bleeding; R32 Unspecified urinary incontinence; Z72.820 Sleep deprivation; Z99.81 Dependence on supplemental oxygen; Z79.01 Long term (current) use of anticoagulants; Z79.82 Long term (current) use of aspirin; Z79.899 Other long term (current) drug therapy; Z90.49 Acquired absence of other specified parts of digestive tract; Z96.0 Presence of urogenital implants; Z95.1 Presence of aortocoronary bypass graft; Z95.0 Presence of cardiac pacemaker; Z98.42 Cataract extraction status, left eye; Z98.41 Cataract extraction status, right eye; Z96.1 Presence of intraocular lens; Z90.5 Acquired absence of kidney; Z85.528 Personal history of other malignant neoplasm of kidney; Z91.81 History of falling; Z87.01 Personal history of pneumonia (recurrent); Z88.2 Allergy status to sulfonamides; Z91.018 Allergy to other foods; Z91.048 Other nonmedicinal substance allergy status; Z83.3 Family history of diabetes mellitus; Z82.49 Family history of ischemic heart disease and other diseases of the circulatory system; Z84.1 Family history of disorders of kidney and ureter; Z83.49 Family history of other endocrine, nutritional and metabolic diseases; Z81.8 Family history of other mental and behavioral disorders
CPT/HCPCS: 36410; 36415; 36600; 51701; 70450; 71045; 74176; 74177; 76937; 80048; 80053; 80306; 81001; 82140; 82728; 82805; 83605; 83735; 83880; 84100; 84443; 84484; 85025; 85379; 85610; 85730; 87040; 87086; 93005; 94640; 95819; 96361; 96374; 96375; 96376; 99285

== ENCOUNTER 2019-06-06 06:20 | Day surgery (SDC) | payer MEDICARE, OTHER ==
[2019-05-31 08:40] VITALS: BMI 42.0
[2019-06-06] MEDS ORDERED: LACTATED RINGERS 1,000 ML IV SCH (06:54)
[2019-06-06 06:57] VITALS: TEMP 98.4
[2019-06-06] MEDS ORDERED: LIDOCAINE 1% 20 ML VIAL (10MG/ML) FOR IV START INTRADERMA ONE (06:58)
[2019-06-06 07:00] LABS: Glucose,Whole Blood 86 mg/dL (75-99)
--- NOTE | 2019-06-06 07:46 | P.PCN ---
Date of Procedure: 06/06/19 Procedure(s) Performed: PREOPERATIVE DIAGNOSIS : Lumbar spondylosis with Facet Arthropathy without myelopathy POSTOPERATIVE DIAGNOSIS: same PROCEDURE: Diagnostic lumbar medial branch block with fluoroscopy at L4-L5 and L5-S1 levels, bilaterally ANESTHESIA: Local anesthetic only Surgeon: Alex Vences MD PROCEDURE INDICATION: Lumbar spondylosis without myelopathy PROCEDURE DESCRIPTION: the patient was seen and identified in the preop holding area , risks and benefits and possible complications of the procedure and alternative were discussed with the patient, and the patient agreed to proceed with the procedure and signed the consent IV was started and vital signs monitored during the procedure and fluoroscopy was used to maximize the benefit and accuracy of the needle placement, and sedation was given to decrease patient anxiety, patient was taken to the procedure room and placed in prone position vital signs monitored and the back prepped. Under strict sterile technique using oblique fluoroscopy ,the junction of the transverse process and the superior articulating process of the L4- 5, and L5-S1 vertebra which corresponds to the fluoroscopy image of the eye of the Tomás dog at L4, L5 as well as the sacral ala for the corresponding medial branches and subsequently , after local infiltration of skin and subcutaneous tissues with lidocaine 1% 0.5mL at each level ,then 22-gauge 5 inch Quincke-type needles was placed at the junction of the base of the transverse process and the superior articular process at the appropriate level, and the needle was advanced until the periosteum contacted, needle placement confirmed with AP, oblique and lateral view and after appropriate needle placement confirmed, 0.2 mL of Omnipaque 180 mg per mL was injected, no vascular uptake was noted, after negative aspiration, 0.5 mL of ropivacaine 0.5% was injected at each level and the needle subsequently removed. At the end of the procedure and the needles removed and a bandage applied after the skin was cleaned the cleaning solution patient taken to recovery room in stable condition and monitors in the recovery room for 20-30 minutes and discharged home in stable condition after discharge criteria met and patient will follow up with the pain clinic in 2 weeks No steroid was used during this procedure. Patient has a history of narcolepsy, so sedation was not used. EBL: Minimal COMPLICATION: None.
[2019-06-06] MEDS ORDERED: LACTATED RINGERS 1,000 ML IV ONE (07:51)
[2019-06-06 08:04] VITALS: BP 115/75; PULSE 62; RESP 16
--- NOTE | 2019-06-06 12:11 | FL ---
EXAMINATION TYPE: FL guided pain mgmt statistic DATE OF EXAM: 06/06/2019 FLUOROSCOPY Fluoroscopy time of 16 seconds was used during bilateral lumbar facet blocks. 7 image/s document/s t he procedure.
[2019-06-15] MEDS ORDERED: Pre Op ABX Message 1 EACH MISC MISCELLANE ONE (05:00)
== END 2019-06-06 08:25 | disposition home or self-care (01) ==
LOC: ORPAIN 06:20
PROVIDERS: ATTEND Anesthesiology
DX: M47.26 Other spondylosis with radiculopathy, lumbar region (principal); M48.061 Spinal stenosis, lumbar region without neurogenic claudication; M48.56XA Collapsed vertebra, not elsewhere classified, lumbar region, initial encounter for fracture; M51.16 Intervertebral disc disorders with radiculopathy, lumbar region; M79.18 Myalgia, other site; I48.91 Unspecified atrial fibrillation; J44.9 Chronic obstructive pulmonary disease, unspecified; I50.9 Heart failure, unspecified; K21.9 Gastro-esophageal reflux disease without esophagitis; M19.90 Unspecified osteoarthritis, unspecified site; G43.909 Migraine, unspecified, not intractable, without status migrainosus; M10.9 Gout, unspecified; M81.0 Age-related osteoporosis without current pathological fracture; R33.9 Retention of urine, unspecified; R32 Unspecified urinary incontinence; G47.419 Narcolepsy without cataplexy; K58.9 Irritable bowel syndrome, unspecified; F41.9 Anxiety disorder, unspecified; R42 Dizziness and giddiness; R01.1 Cardiac murmur, unspecified; D64.9 Anemia, unspecified; I25.2 Old myocardial infarction; G47.33 Obstructive sleep apnea (adult) (pediatric); Z79.82 Long term (current) use of aspirin; Z79.01 Long term (current) use of anticoagulants; Z79.891 Long term (current) use of opiate analgesic; Z79.899 Other long term (current) drug therapy; Z79.52 Long term (current) use of systemic steroids; Z91.013 Allergy to seafood; Z88.2 Allergy status to sulfonamides; Z91.09 Other allergy status, other than to drugs and biological substances; Z99.89 Dependence on other enabling machines and devices; Z95.1 Presence of aortocoronary bypass graft; Z95.0 Presence of cardiac pacemaker; Z87.01 Personal history of pneumonia (recurrent); Z85.528 Personal history of other malignant neoplasm of kidney; Z90.5 Acquired absence of kidney; Z91.81 History of falling; Z99.81 Dependence on supplemental oxygen; Z96.1 Presence of intraocular lens; Z83.3 Family history of diabetes mellitus; Z82.49 Family history of ischemic heart disease and other diseases of the circulatory system; Z84.1 Family history of disorders of kidney and ureter
CPT/HCPCS: 64493; 64494; Q9966; 99152

== ENCOUNTER → 2019-06-23 | Outpatient (CLI) | payer MEDICARE, OTHER ==
[2019-06-23 13:51] VITALS: RESP 16
[2019-06-23 14:00] VITALS: BP 136/91; PULSE 62; TEMP 98
--- NOTE | 2019-06-24 10:18 | P.PAINPG ---
Subjective Progress Note Date: 06/23/19 This is 69 year old female with a chronic history of severe low back pain, and she is diagnosed with compression fracture of lumbar spine and lumbar spinal stenosis and lumbar radiculopathy, and myofascial pain syndrome lumbar area,as well as lumbar spondylosis. she returns today for follow-up following 2 lumbar diagnostic medial branch block of the L4-5 and L5-S1 area. She reports that she felt significantly better the day of the procedure. She reports that this was greater than 50% relief lasting 1 day. she would like to proceed with radiofrequency ablation Patient currently on pain medication Amory 10/325 every 6 hours and Neurontin 100 mg 3 times a day, patient currently on ELIQUIS , because she has a history of A. fib.she is also on home oxygen. Of note, her May 03. She is residing in a nursing facility. Physical exam: Vitals: Reviewed in EMR GENERAL: ill appearing, sitting in wheelchair, using oxygen by nasal cannula PSYCH: Mood and affect is appropriate. Awake, alert, and oriented SKIN: Skin color, texture, turgor normal, no rashes or lesions HEENT: Normocephalic, atraumatic. EOM intact CV: No pedal edema RESP: No audible wheezing, using oxygen by nasal cannula GI: Abdomen non-distended MUSCULOSKELETAL: Bilateral lower extremity strength is reduced bilaterally and symmetrically, 3/5 throughout. No atrophy or tone abnormalities are noted. Lumbar spine: tenderness to palpation over the lumbar spine and paraspinous muscles. positive for pain with facet loading and back extension/rotation. extremely limited range of motion of lumbar spine Buttocks: No pain to palpation over the PSIS Extremities: Peripheral joint ROM is full and pain free without obvious instability or laxity in all four extremities. No edema or skin discolorations noted. NEUR: cranial nerves grossly intact. No loss of sensation is noted. Assessment and Plan Plan: Assessment and plan= low back pain secondary to multifactorial causes , lumbar degenerative disc disease ,lumbar compression fracture ,and lumbar spinal stenosis, and lumbar spondylosis, patient had no benefit from lumbar epidural steroid injection and trigger point injection,x2,she had greater than 50% relief from diagnostic medial branch blocks at bilateralL3, L4, L5 for facets L4-5 and L5-S1. we will proceed with radio frequency ablation of these medial branches. We will start with the right side. Patient is on Eliquis, which we will hold for 3 days for the procedure. I recommend continue Amory 10/325 every 6 hours when necessary and Neurontin 100 mg 3 times a day. Objective - Vital Signs Vital signs: Vital Signs Temp 98 F 06/23/19 13:54 Pulse 62 06/23/19 13:54 Resp 16 06/23/19 13:54 BP 136/91 06/23/19 13:54 Pulse Ox 91 L 06/23/19 13:54 Intake & Output 06/23/19 06/24/19 06/24/19 18:59 06:59 18:59 Weight 97.069 kg PQRS Measure Charge Sheet Measure #130: Documentation of Current Meds in Medical Chart: Patient's medications documented in chart Measure #226: Tobacco Use: Screen & Cessation Intervention: Pt not a tobacco user Measure #111: Pneumonia Vaccination: Pneumococcal vaccine administered or previously received Measure #47: Advance Care Plan: Advance care planning discussed & documented, pt chose/unable to give Measure #412: Opioid Treatment Agreement: No documentation of signed opioid treatment agreement Measure #408: Opioid Therapy Follow-up Evaluation: Patient had NO f/u eval minimum every 3 months during opioid therapy Measure #317: Preventitive Care & Scrn High Bld Press & F/U: Pre-hypertensive or hypertensive BP documented, pt will f/u with PCP Measure #128: Body Mass Index (BMI) Screening & Follow-up: BMI documented ABOVE normal parameters - f/u documented Measure #131: Pain Assessment & Follow-up: Pain positive & plan documented, Follow-up scheduled Measure #431: Unhealthy Alcohol Use Preventative Care & Scrn: Patient not iden tified as an unhealthy alcohol user PQRS Narrative: Smoking Status Never smoker Narcotic Agreement Date Signed 03/29/19 Blood Pressure 136/91 Pain Intensity [Right Hip] 10 Scale Used Numeric (1 - 10) Hx Alcohol Use (MH) No Home Medications: Ambulatory Orders Allopurinol [Zyloprim] 100 mg PO DAILY@0800 02/03/19 Aspirin [[place] Aspirin EC] 81 mg PO DAILY@1700 02/03/19 Carbidopa/Levodopa [Sinemet 25-250 mg] 3 - 4 tab PO DAILY PRN 02/03/19 Escitalopram [Lexapro] 20 mg PO HS@2100 02/03/19 Isosorbide Mononitrate ER [Imdur] 30 mg PO DAILY@0800 02/03/19 Ferrous Sulfate [Iron] 325 mg PO DAILY@1700 03/01/19 Nitroglycerin Sl Tabs [Nitrostat] 0.4 mg SUBLINGUAL Q5M PRN 03/01/19 Omeprazole [PriLOSEC] 40 mg PO DAILY@0600 03/01/19 Apixaban [Eliquis] 5 mg PO BID@0800,1700 05/15/19 Atorvastatin [Lipitor] 40 mg PO HS@2100 05/15/19 Bisacodyl [Dulcolax] 10 mg RECTAL DAILY PRN 05/15/19 Na Phos,M-B/Na Phos,Di-Ba [Fleet Adult] 133 ml RECTAL DAILY PRN 05/15/19 Nystatin 500,000 unit PO QID 05/15/19 Nystatin [Nystop] 1 applic TOPICAL DAILY PRN 05/15/19 Furosemide [Lasix] 20 mg PO DAILY #1 tab 05/20/19 Gabapentin [Neurontin] 100 mg PO TID@0600,1400,2100 #9 capsule 05/20/19 HYDROcodone/APAP 10-325MG [[place] 10-325] 1 - 2 tab PO Q6H PRN #12 tab 05/20/19 Ipratropium-Albuterol Nebulize [Duoneb 0.5 mg-3 mg/3 ml Soln] 3 ml INHALATION TID #1 ampul.neb 05/20/19 Metoprolol Tartrate [Lopressor] 25 mg PO TID #0 05/20/19 Modafinil [Provigil] 100 mg PO DAILY PRN #3 tablet 05/20/19 rOPINIRole HCL [Requip] 2 mg PO TID tab 05/20/19 Menthol [Biofreeze] 1 dose TOPICAL DAILY PRN 06/23/19 Controlled Substance Measures - Controlled Substance Measures Is patient prescribed a controlled substance at discharge?: No
== END | disposition home or self-care (01) ==
LOC: PNWHC3 12:28
PROVIDERS: ATTEND Anesthesiology
DX: M48.061 Spinal stenosis, lumbar region without neurogenic claudication (principal); M47.816 Spondylosis without myelopathy or radiculopathy, lumbar region; M51.36 Other intervertebral disc degeneration, lumbar region; S32.009A Unspecified fracture of unspecified lumbar vertebra, initial encounter for closed fracture; Z79.891 Long term (current) use of opiate analgesic; Z79.01 Long term (current) use of anticoagulants; Z79.899 Other long term (current) drug therapy; Z99.81 Dependence on supplemental oxygen
CPT/HCPCS: 99211

== ENCOUNTER 2019-07-05 02:47 | Observation (INO) | payer MEDICARE, OTHER ==
--- NOTE | 2019-07-05 03:13 | ED ---
General Adult HPI - General Chief complaint: Anxiety Stated complaint: Uncontrolled pain Time Seen by Provider: 07/05/19 02:49 Source: patient, EMS, Caregiver Mode of arrival: EMS - History of Present Illness Initial comments: Dictation was produced using [employer] dictation software. please excuse any grammatical, word or spelling errors. Chief Complaint: 69-year-old female well-known to emergency department for chronic back pain presents with chief complaint of total body pain. History of Present Illness: His 69-year-old female she has past medical history of chronic back pain presents today with worsening back pain. Patient per se she's had this back pain for urinary half. This seemed pain specialist. Chart review shows that patient was seen by pain doctor approximately 2 weeks ago. Patient currently resides at [facility]. prison staff called EMS for total body pain. Patient reports that she has pain in her right hip down to her right leg. States she's had this pain for a year to have however it was worse today. EMS reports that patient was also hypotensive upon initial evaluation. Patient denies any fever, chills or night sweats. No nausea vomiting or diarrhea. The ROS documented in this emergency department record has been reviewed and confirmed by me. Those systems with pertinent positive or negative responses have been documented in the HPI. All other systems are other negative and/or noncontributory. PHYSICAL EXAM: General Impression: Alert and oriented x3, anxious HEENT: Normocephalic atraumatic, extra-ocular movements intact, pupils equal and reactive to light bilaterally, mucous membranes moist. Cardiovascular: Heart regular rate and rhythm, S1&S2 audible, no murmurs, rubs or gallops Chest: Lungs clear to auscultation bilaterally, no rhonchi, no wheeze, no rales Abdomen: Bowel sounds present, abdomen soft, non-tender, non-distended, no organomegaly Musculoskeletal: Pulses present and equal in all extremities, no peripheral edema, tenderness to palpation of the right hip Motor: no focal deficits noted Neurological: CN II-XII grossly intact, no focal motor or sensory deficits noted Skin: Intact with no visualized rashes Psych: Normal affect and mood ED course: 69-year-old female with past medical history of chronic back pain. Patient's well-known to the emergency department for multiple visitations for neck symptoms. Patient currently resides in a [facility]. She was sent here for pain control. She reports that the characteristics of the pain are typical however worse than usual. She reports that she was put in a wheelchair for 4 hours which she feels that her pain worse. Signs upon arrival shows blood pressure 87/53, less than vital signs within acceptable limits. Patient given some Percocet and it dramatically improved her symptoms. She is no longer in acute distress. He looks comfortable and has a phone in her hand laboratory evaluation obtained. CBC unremarkable. Coag panel is negative. Metabolic panel is grossly unremarkable however her BUN is 43 and creatinine of 0.96. This is concerning for prerenal azotemia likely secondary to dehydration. Urinalysis is unremarkable. Chest x-ray shows possible mild CHF possible infection however patient denies any infectious symptoms. Patient given intravenous fluids. Patient given intravenous fluids with improvement of blood pressure. Clinical presentation consistent with dehydration. We will admit patient to Dr. Colon for IV fluids and further medical monitoring. EKG interpretation: Ventricular rate 67, atrial paced rhythm,. Interval to 42, care is 100, QTC 477. No AR prolongation, no QTC prolongation, no ST or T-wave changes noted. Overall, this EKG is unremarkable - Related Data Home Medications Medication Instructions Recorded Confirmed Allopurinol [Zyloprim] 100 mg PO DAILY@0800 02/03/19 06/23/19 Aspirin [[place] Aspirin EC] 81 mg PO DAILY@1700 02/03/19 06/23/19 Carbidopa/Levodopa [Sinemet 25-250 3 - 4 tab PO DAILY PRN 02/03/19 06/23/19 mg] Escitalopram [Lexapro] 20 mg PO HS@2100 02/03/19 06/23/19 Isosorbide Mononitrate ER [Imdur] 30 mg PO DAILY@0800 02/03/19 06/23/19 Ferrous Sulfate [Iron] 325 mg PO DAILY@1700 03/01/19 06/23/19 Nitroglycerin Sl Tabs [Nitrostat] 0.4 mg SUBLINGUAL Q5M PRN 03/01/19 06/23/19 Omeprazole [PriLOSEC] 40 mg PO DAILY@0600 03/01/19 06/23/19 Apixaban [Eliquis] 5 mg PO BID@0800,1700 05/15/19 06/23/19 Atorvastatin [Lipitor] 40 mg PO HS@2100 05/15/19 06/23/19 Bisacodyl [Dulcolax] 10 mg RECTAL DAILY PRN 05/15/19 06/23/19 Na Phos,M-B/Na Phos,Di-Ba [Fleet 133 ml RECTAL DAILY PRN 05/15/19 06/23/19 Adult] Nystatin 500,000 unit PO QID 05/15/19 06/23/19 Nystatin [Nystop] 1 applic TOPICAL DAILY PRN 05/15/19 06/23/19 Menthol [Biofreeze] 1 dose TOPICAL DAILY PRN 06/23/19 06/23/19 Previous Rx's Medication Instructions Recorded Furosemide [Lasix] 20 mg PO DAILY #1 tab 05/20/19 Gabapentin [Neurontin] 100 mg PO TID@0600,1400,2100 #9 05/20/19 capsule HYDROcodone/APAP 10-325MG [[place] 1 - 2 tab PO Q6H PRN #12 tab 05/20/19 10-325] Ipratropium-Albuterol Nebulize 3 ml INHALATION TID #1 ampul.neb 05/20/19 [Duoneb 0.5 mg-3 mg/3 ml Soln] Metoprolol Tartrate [Lopressor] 25 mg PO TID #0 05/20/19 Modafinil [Provigil] 100 mg PO DAILY PRN #3 tablet 05/20/19 rOPINIRole HCL [Requip] 2 mg PO TID tab 05/20/19 Allergies Allergy/AdvReac Type Severity Reaction Status Date / Time adhesive tape Allergy skin peels Verified 06/06/19 07:02 off Fish Containing Products Allergy Nausea Verified 06/06/19 07:02 [Fish] Sulfa (Sulfonamide Allergy Unknown Verified 06/06/19 07:02 Antibiotics) Review of Systems ROS Statement: Those systems with pertinent positive or pertinent negative responses have been documented in the HPI. ROS Other: All systems not noted in ROS Statement are negative. Past Medical History Past Medical History: Atrial Fibrillation, Cancer, Chest Pain / Angina, Heart Failure, COPD, Fibromyalgia, GERD/Reflux, Myocardial Infarction ([place]), Osteoarthritis (OA), Pneumonia, Sleep Apnea/CPAP/BIPAP Additional Past Medical History / Comment(s): Chronic low back pain which radiates down bilateral legs, lumbar disc disease, spondylosis, lumbar compression fracture, myofascial pain syndrome, generalized arthritis, migraines, gout bilateral feet, osteoporosis, frequent falls, chronic urine retention/incontinence/has bladder stimulator, 1972 R renal cancer with nephrectomy, anemia, cardiac murmur, home oxygen at 2-3L/NC ATC, KOFFI but device is broken, vertigo, narcolepsy, IBS, pt currently at [facility] for rehab Last Myocardial Infarction Date:: 2004 History of Any Multi-Drug Resistant Organisms: None Reported Past Surgical History: Appendectomy, Coronary Bypass/CABG, Heart Catheterization, Orthopedic Surgery, Pacemaker Additional Past Surgical History / Comment(s): Rt nephrectomy, lumber epidural injections-last one 03/07/19, bladder stimulator, fabricio carpal tunnel releases, surgery on left hand, 1 vessel CABG 2004, fabricio cataracts with lens implants, colonoscopy. Past Anesthesia/Blood Transfusion Reactions: Previous Problems w/ Anesthesia Additional Past Anesthesia/Blood Transfusion Reaction / Comment(s): Pt has received blood in past without reaction. Type of Cardiac Device: Permanent Pacemaker Device Placement Date:: 2006 Past Psychological History: Anxiety Smoking Status: Never smoker Past Alcohol Use History: None Reported Past Drug Use History: None Reported - Past Family History Mother Family Medical History: Diabetes Mellitus, Hypertension, Renal Disease Father Additional Family Medical History / Comment(s): Father comitted suicide. Family Family Medical History: Coronary Artery Disease (CAD) Course Vital Signs 07/05/19 07/05/19 07/05/19 02:56 04:18 04:59 Temperature 98.8 F Pulse Rate 61 64 66 Respiratory 22 20 20 Rate Blood Pressure 87/53 80/46 92/74 O2 Sat by Pulse 94 L 96 97 Oximetry 07/05/19 05:04 Temperature Pulse Rate 70 Respiratory 20 Rate Blood Pressure 106/73 O2 Sat by Pulse 97 Oximetry Medical Decision Making - Lab Data Result diagrams: 07/05/19 03:27 07/05/19 03:27 Lab Results 07/05/19 07/05/19 07/05/19 Range/Units 03:27 03:27 03:27 WBC 5.2 (3.8-10.6) k/uL RBC 3.10 L (3.80-5.40) m/uL Hgb 10.1 L (11.4-16.0) gm/dL Hct 31.9 L (34.0-46.0) % MCV 102.8 H (80.0-100.0) fL MCH 32.5 (25.0-35.0) pg MCHC 31.6 (31.0-37.0) g/dL RDW 16.7 H (11.5-15.5) % Plt Count 73 L (150-450) k/uL Neutrophils % 65 % Lymphocytes % 19 % Monocytes % 7 % Eosinophils % 6 % Basophils % 0 % Neutrophils # 3.4 (1.3-7.7) k/uL Lymphocytes # 1.0 (1.0-4.8) k/uL Monocytes # 0.4 (0-1.0) k/uL Eosinophils # 0.3 (0-0.7) k/uL Basophils # 0.0 (0-0.2) k/uL Manual Slide Review Performed Hypochromasia Slight Anisocytosis Slight Macrocytosis Moderate PT (9.0-12.0) sec INR (<1.2) Sodium 136 L (137-145) mmol/L Potassium 4.4 (3.5-5.1) mmol/L Chloride 106 (98-107) mmol/L Carbon Dioxide 28 (22-30) mmol/L Anion Gap 2 mmol/L BUN 43 H (7-17) mg/dL Creatinine 0.96 (0.52-1.04) mg/dL Est GFR (CKD-EPI)AfAm 69 (>60 ml/min/1.73 sqM) Est GFR (CKD-EPI)NonAf 60 (>60 ml/min/1.73 sqM) Glucose 81 (74-99) mg/dL Plasma Lactic Acid Zaid 1.4 (0.7-2.0) mmol/L Calcium 8.4 (8.4-10.2) mg/dL Magnesium 1.9 (1.6-2.3) mg/dL Creatine Kinase 31 (30-135) U/L Urine Color Urine Appearance (Clear) Urine pH (5.0-8.0) Ur Specific Keavy (1.001-1.035) Urine Protein (Negative) Urine Glucose (UA) (Negative) Urine Ketones (Negative) Urine Blood (Negative) Urine Nitrite (Negative) Urine Bilirubin (Negative) Urine Urobilinogen (<2.0) mg/dL Ur Leukocyte Esterase (Negative) Urine RBC (0-5) /hpf Urine WBC (0-5) /hpf Ur Squamous Epith Cells (0-4) /hpf Urine Bacteria (None) /hpf Hyaline Casts (0-2) /lpf Urine Mucus (None) /hpf 07/05/19 07/05/19 Range/Units 03:27 04:17 WBC (3.8-10.6) k/uL RBC (3.80-5.40) m/uL Hgb (11.4-16.0) gm/dL Hct (34.0-46.0) % MCV (80.0-100.0) fL MCH (25.0-35.0) pg MCHC (31.0-37.0) g/dL RDW (11.5-15.5) % Plt Count (150-450) k/uL Neutrophils % % Lymphocytes % % Monocytes % % Eosinophils % % Basophils % % Neutrophils # (1.3-7.7) k/uL Lymphocytes # (1.0-4.8) k/uL Monocytes # (0-1.0) k/uL Eosinophils # (0-0.7) k/uL Basophils # (0-0.2) k/uL Manual Slide Review Hypochromasia Anisocytosis Macrocytosis PT 11.2 (9.0-12.0) sec INR 1.1 (<1.2) Sodium (137-145) mmol/L Potassium (3.5-5.1) mmol/L Chloride (98-107) mmol/L Carbon Dioxide (22-30) mmol/L Anion Gap mmol/L BUN (7-17) mg/dL Creatinine (0.52-1.04) mg/dL Est GFR (CKD-EPI)AfAm (>60 ml/min/1.73 sqM) Est GFR (CKD-EPI)NonAf (>60 ml/min/1.73 sqM) Glucose (74-99) mg/dL Plasma Lactic Acid Zaid (0.7-2.0) mmol/L Calcium (8.4-10.2) mg/dL Magnesium (1.6-2.3) mg/dL Creatine Kinase (30-135) U/L Urine Color Yellow Urine Appearance Cloudy H (Clear) Urine pH 5.5 (5.0-8.0) Ur Specific Keavy 1.024 (1.001-1.035) Urine Protein Negative (Negative) Urine Glucose (UA) Negative (Negative) Urine Ketones Trace H (Negative) Urine Blood Negative (Negative) Urine Nitrite Negative (Negative) Urine Bilirubin Negative (Negative) Urine Urobilinogen <2.0 (<2.0) mg/dL Ur Leukocyte Esterase Negative (Negative) Urine RBC 2 (0-5) /hpf Urine WBC 1 (0-5) /hpf Ur Squamous Epith Cells 11 H (0-4) /hpf Urine Bacteria Occasional H (None) /hpf Hyaline Casts 12 H (0-2) /lpf Urine Mucus Rare H (None) /hpf Disposition Clinical Impression: Dehydration Disposition: ADMITTED IP TO THIS [facility] Instructions (If sedation given, give patient instructions): Generalized Anxiety Disorder (ED) Referrals: Jason Weiss DO [Primary Care Provider] - 1-2 days Decision Time: 05:21
[2019-07-05 03:38] LABS: Anisocytosis Slight; Basophils % (A) 0 %; Eosinophils # (A) 0.3 k/uL (0-0.7); Eosinophils % (A) 6 %; HCT 31.9 % (34.0-46.0); HGB 10.1 gm/dL (11.4-16.0); Hypochromasia Slight; Lymphocytes % (A) 19 %; MCH 32.5 pg (25.0-35.0); MCHC 31.6 g/dL (31.0-37.0); MCV 102.8 fL (80.0-100.0); Macrocytosis Moderate; Mean Platelet Volume 9.6; Monocytes # (A) 0.4 k/uL (0-1.0); Monocytes % (A) 7 %; Neutrophils # (A) 3.4 k/uL (1.3-7.7); Neutrophils % (A) 65 %; RDW 16.7 % (11.5-15.5); WBC 5.2 k/uL (3.8-10.6)
[2019-07-05] MEDS ORDERED: oxyCODONE-APAP 7.5-325MG 1 EACH TAB PO STA (03:38)
[2019-07-05] MEDS ORDERED: SODIUM CHLORIDE 0.9% 1,000 ML IV ONE (03:44)
[2019-07-05 03:48] LABS: INR 1.1 (<1.2); Prothrombin Time 11.2 sec (9.0-12.0)
[2019-07-05 03:54] LABS: Calcium 8.4 mg/dL (8.4-10.2); Magnesium 1.9 mg/dL (1.6-2.3); Potassium 4.4 mmol/L (3.5-5.1)
[2019-07-05 04:10] LABS: Platelet Count 73 k/uL (150-450)
[2019-07-05 04:32] LABS: Appearance,Urine Cloudy (Clear); Bacteria,Urine Occasional /hpf; Bilirubin,Urine Negative (Negative); Blood,Urine Negative (Negative); Color,Urine Yellow; Glucose,Urine (UA) Negative (Negative); Hyaline Casts,Urine 12 /lpf (0-2); Ketones,Urine Trace (Negative); Leukocyte Esterase,Urine Negative (Negative); Mucus,Urine Rare /hpf; Nitrite,Urine Negative (Negative); PH, Urine 5.5 (5.0-8.0); Protein,Urine Negative (Negative); RBC,Urine 2 /hpf (0-5); Specific Gravity,Urine 1.024 (1.001-1.035); Squamous Epithelial Cell,Urine 11 /hpf (0-4); Urobilinogen,Urine <2.0 mg/dL (<2.0); WBC,Urine 1 /hpf (0-5)
--- NOTE | 2019-07-05 04:33 | XR ---
EXAM: XR Chest, 1 View CLINICAL HISTORY: Chest pain. TECHNIQUE: Frontal view of the chest. COMPARISON: 05/19/2019. FINDINGS: Lungs: Bilateral perihilar infiltrates. Pleural space: No definitive pleural effusions on this single frontal portable view of the chest. No pneumothorax. Heart: Stable cardiomegaly with findings suggestive of mild CHF, interval worsening since prior study. Mediastinum: Essentially unchanged. Bones/joints: Essentially unchanged. Tubes, lines and devices: Left-sided chest wall pacemaker and lead tips are unchanged. IMPRESSION: Stable cardiomegaly with findings suggestive of mild CHF, interval worsening since prior study. Correlate clinically for superimposed infection.
[2019-07-05] MEDS ORDERED: SODIUM CHLORIDE 0.9% 1,000 ML IV STA (04:36)
[2019-07-05] MEDS ORDERED: NALOXONE 0.4 MG/ML 1 ML VIAL IV PRN (05:21)
[2019-07-05] MEDS: GABAPENTIN 100 MG CAP PO SCH ×3 (07:05→22:20)
[2019-07-05] MEDS: APIXABAN 5 MG TAB PO SCH (07:52)
[2019-07-05] MEDS: ALLOPURINOL 100 MG TAB PO SCH (08:39)
[2019-07-05] MEDS ORDERED: BISACODYL 10 MG SUPP RECTAL PRN (09:00)
[2019-07-05] MEDS ORDERED: NITROGLYCERIN SL TABS 0.4 MG TAB SUBLINGUAL PRN (10:48)
[2019-07-05] MEDS ORDERED: MODAFINIL 100 MG TAB PO PRN (10:48)
[2019-07-05] MEDS ORDERED: NYSTATIN 100,000 UNIT/GM POWD 15 GM TOPICAL PRN (10:48)
[2019-07-05] MEDS ORDERED: CARBIDOPA-LEVODOPA 25-250 MG 1 EACH TAB PO PRN (10:48)
[2019-07-05] MEDS ORDERED: NA PHOS,M-B/NA PHOS,DI-BA 133 ML ENEMA RECTAL PRN (10:48)
[2019-07-05] MEDS ORDERED: MAGNESIUM HYDROXIDE 2,400 MG/10 ML CUP PO PRN (10:48)
[2019-07-05] MEDS: METOPROLOL TARTRATE 25 MG TAB PO SCH ×3 (11:01→22:20)
[2019-07-05] MEDS: ISOSORBIDE MONONITRATE ER 30 MG TAB.ER.24H PO SCH (11:01)
[2019-07-05] MEDS: PANTOPRAZOLE 40 MG TABLET PO SCH (11:05)
[2019-07-05] MEDS: HYDROcodone/APAP 10-325MG 1 EACH TAB PO PRN ×3 (11:06→23:43)
[2019-07-05] MEDS: IPRATROPIUM-ALBUTEROL 3 ML NEB INHALATION SCH ×2 (11:38→19:15)
[2019-07-05] MEDS: CARBIDOPA-LEVODOPA 25-250 MG 1 EACH TAB PO SCH ×2 (12:50→16:49)
[2019-07-05] MEDS: ASPIRIN 81 MG PO SCH ×2 (16:49→16:50)
[2019-07-05] MEDS: FERROUS SULFATE 325 MG TAB PO SCH (16:49)
--- NOTE | 2019-07-05 19:44 | P.HPIM ---
History of Present Illness H&P Date: 07/05/19 Chief Complaint: Right hip pain History of presenting complaint: This is a 69-year-old patient of Dr. Weiss whose chronic stable medical conditions include restless leg syndrome, GERD, renal cell carcinoma with right nephrectomy, fibromyalgia, Cu[place] hypercapnic respiratory failure, permanent pacemaker, coronary artery disease with bypass, chronic bladder dysfunction, chronic narcolepsy, obstructive sleep apnea does not use CPAP, COPD, chronic L1 compression fracture, CHF from diastolic dysfunction EF 50-55%. Patient has been living at [facility] Since May 03. Patient has chronic pain. Does follow with Dr. Rosales from pain services. Patient has increasing pain in the right hip and the right leg. Progressively getting worse. Next appointment is in a few days. As she cannot wait she was sent down to the [facility]. Pain management was consulted. No fever no chills. tolerating a diet. Patient is nonambulatory Review of systems: GEN.: Tired EYES: None HEENT: None NECK: None RESPIRATORY: Baseline some shortness of breath CARDIOVASCULAR: None GASTROINTESTINAL: None GENITOURINARY: Some incontinence MUSCULOSKELETAL: Joint pains LYMPHATICS: None HEMATOLOGICAL: None PSYCHIATRY: Anxiety NEUROLOGICAL: None Social history: Patient is a . Lives at [facility] since May 03. No smoking. No alcohol Physical examination: VITAL SIGNS: 98.8, 61, 22, 87 x 53, 94% on nasal cannula GENERAL: BMI 45.3, laying in bed awake a bit anxious. EYES: Pupils equal. Conjunctiva normal. HEENT: External appearance of nose and ears normal, oral cavity grossly normal. NECK: JVD unable to assess; masses not palpable. HEART: First and second heart sounds are normal; no edema. LUNGS: Respiratory rate normal; distant breath sounds. ABDOMEN: Soft, nontender, liver spleen not palpable, no masses palpable. PSYCH: [Alert and oriented x3; mood and affect bit anxious l. NEUROLOGICAL: Cranial nerves grossly intact; no facial asymmetry, limited range of motion both lower extremity. LYMPHATICS: No lymph nodes palpable in the axilla and neck INVESTIGATIONS, reviewed in the clinical context: White count 5.2 hemoglobin 10.1 platelets 73 potassium 4.4 bun 43 creatinine 0.96 Assessment: -Acute on chronic pain in the right hip from arthritis -Chronic congestive heart failure from diastolic dysfunction EF 50-55% -Chronic L1 compression fracture -COPD in a nonsmoker -Obstructive sleep apnea does not use CPAP machine -Chronic narcolepsy -Chronic bladder dysfunction with the stimulator urine-coronary artery disease with a history of bypass -Permanent pacemaker -Chronic hypercapnic respiratory failure on oxygen -Chronic fibromyalgia -Renal cell carcinoma with right nephrectomy -GERD line --restless leg syndrome Plan: Home medications resumed. Pain services was consulted. . Not really a surgical candidate from prior evaluations. Care was discussed with the patient. Past Medical History Past Medical History: Atrial Fibrillation, Cancer, Chest Pain / Angina, Heart Failure, COPD, Fibromyalgia, GERD/Reflux, Myocardial Infarction ([place]), Osteoarthritis (OA), Pneumonia, Sleep Apnea/CPAP/BIPAP Additional Past Medical History / Comment(s): Chronic low back pain which ra diates down bilateral legs, lumbar disc disease, spondylosis, lumbar compression fracture, myofascial pain syndrome, generalized arthritis, migraines, gout bilateral feet, osteoporosis, frequent falls, chronic urine retention/incontinence/has bladder stimulator, 1972 R renal cancer with nephrectomy, anemia, cardiac murmur, home oxygen at 2-3L/NC ATC, KOFFI but device is broken, vertigo, narcolepsy, IBS, pt currently at [facility] for rehab Last Myocardial Infarction Date:: 2004 History of Any Multi-Drug Resistant Organisms: None Reported Past Surgical History: Appendectomy, Coronary Bypass/CABG, Heart Catheterization, Orthopedic Surgery, Pacemaker Additional Past Surgical History / Comment(s): Rt nephrectomy, lumber epidural injections-last one 03/07/19, bladder stimulator, fabricio carpal tunnel releases, surgery on left hand, 1 vessel CABG 2004, fabricio cataracts with lens implants, colonoscopy. Past Anesthesia/Blood Transfusion Reactions: Previous Problems w/ Anesthesia Additional Past Anesthesia/Blood Transfusion Reaction / Comment(s): Pt has re ceived blood in past without reaction. Type of Cardiac Device: Permanent Pacemaker Device Placement Date:: 2006 Past Psychological History: Anxiety Additional Psychological History / Comment(s): She no longer drives. She ambulates with a walker. 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 She has home oxygen and a nebulizer. Has used VNA and help form [facility]- Patient currently resides at [facility] since 05/03/19 since recent spouse Smoking Status: Never smoker Past Alcohol Use History: None Reported Past Drug Use History: None Reported - Past Family History Mother Family Medical History: Diabetes Mellitus, Hypertension, Renal Disease Father Additional Family Medical History / Comment(s): Father comitted suicide. Family Family Medical History: Coronary Artery Disease (CAD) Medications and Allergies Home Medications Medication Instructions Recorded Confirmed Type Allopurinol [Zyloprim] 100 mg PO DAILY@0800 02/03/19 07/05/19 History Aspirin [[place] Aspirin EC] 81 mg PO DAILY@1700 02/03/19 07/05/19 History Carbidopa/Levodopa [Sinemet 25-250 1 tab PO BID@0800,1700 02/03/19 07/05/19 History mg] Escitalopram [Lexapro] 20 mg PO DAILY@0800 02/03/19 07/05/19 History Isosorbide Mononitrate ER [Imdur] 30 mg PO DAILY@0800 02/03/19 07/05/19 History Ferrous Sulfate [Iron] 325 mg PO DAILY@1700 03/01/19 07/05/19 History Nitroglycerin Sl Tabs [Nitrostat] 0.4 mg SUBLINGUAL Q5M PRN 03/01/19 07/05/19 History Omeprazole [PriLOSEC] 40 mg PO DAILY@0600 03/01/19 07/05/19 History Apixaban [Eliquis] 5 mg PO BID@0800,1700 05/15/19 07/05/19 History Atorvastatin [Lipitor] 40 mg PO HS@2100 05/15/19 07/05/19 History Bisacodyl [Dulcolax] 10 mg RECTAL DAILY PRN 05/15/19 07/05/19 History Na Phos,M-B/Na Phos,Di-Ba [Fleet 133 ml RECTAL DAILY PRN 05/15/19 07/05/19 History Adult] Nystatin [Nystop] 1 applic TOPICAL DAILY PRN 05/15/19 07/05/19 History Gabapentin [Neurontin] 100 mg PO TID@0600,1400,2100 #9 05/20/19 07/05/19 Rx capsule Modafinil [Provigil] 100 mg PO DAILY PRN #3 tablet 05/20/19 07/05/19 Rx Menthol [Biofreeze] 1 dose TOPICAL DAILY PRN 06/23/19 07/05/19 History Acetaminophen Tab [Tylenol Tab] 1,000 mg PO BID@0800,2100 07/05/19 07/05/19 History Caldesene Baby Powder 1 applic TOPICAL BID 07/05/19 07/05/19 History Carbidopa/Levodopa [Carbidopa-Levo 3 - 4 tab PO DAILY PRN 07/05/19 07/05/19 History 25-250 mg Odt] Docusate [Colace] 100 mg PO DAILY@0800 07/05/19 07/05/19 History Furosemide [Lasix] 20 mg PO DAILY@0600 07/05/19 07/05/19 History HYDROcodone/APAP 10-325MG [[place] 1 tab PO Q6HR PRN 07/05/19 07/05/19 History 10-325] Ipratropium-Albuterol Nebulize 3 ml INHALATION RT-TID 07/05/19 07/05/19 History [Duoneb 0.5 mg-3 mg/3 ml Soln] Magnesium Hydroxide [Milk of 2,400 mg PO DAILY PRN 07/05/19 07/05/19 History Magnesia] Metoprolol Tartrate [Lopressor] 25 mg PO TID@0600,1400,2100 07/05/19 07/05/19 History rOPINIRole HCL [Requip] 2 mg PO TID@0600,1400,2100 07/05/19 07/05/19 History Allergies Allergy/AdvReac Type Severity Reaction Status Date / Time adhesive tape Allergy skin peels Verified 07/05/19 08:59 off Fish Containing Products Allergy Nausea Verified 07/05/19 08:59 [Fish] Sulfa (Sulfonamide Allergy Unknown Verified 07/05/19 08:59 Antibiotics) Physical Exam Vitals: Vital Signs Temp Pulse Pulse Resp BP BP Pulse Ox 07/05/19 19:26 68 07/05/19 19:15 68 07/05/19 14:19 98.6 F 76 17 126/78 93 L 07/05/19 11:51 70 07/05/19 11:41 70 07/05/19 07:22 95 07/05/19 07:00 98.1 F 75 16 91/60 98 07/05/19 05:04 70 20 106/73 97 07/05/19 04:59 66 20 92/74 97 07/05/19 04:18 64 20 80/46 96 07/05/19 02:56 98.8 F 61 22 87/53 94 L Intake and Output 07/05/19 07/05/19 07/05/19 06:59 14:59 22:59 Intake Total 90 Balance 90 Intake: Oral 90 Other: # Voids 2 Weight 105.233 kg Results CBC & Chem 7: 07/05/19 03:27 07/05/19 03:27 Labs: Abnormal Lab Results - Last 24 Hours (Table) 07/05/19 07/05/19 07/05/19 Range/Units 03:27 03:27 04:17 RBC 3.10 L (3.80-5.40) m/uL Hgb 10.1 L (11.4-16.0) gm/dL Hct 31.9 L (34.0-46.0) % MCV 102.8 H (80.0-100.0) fL RDW 16.7 H (11.5-15.5) % Plt Count 73 L (150-450) k/uL Sodium 136 L (137-145) mmol/L BUN 43 H (7-17) mg/dL Urine Appearance Cloudy H (Clear) Urine Ketones Trace H (Negative) Ur Squamous Epith Cells 11 H (0-4) /hpf Urine Bacteria Occasional H (None) /hpf Hyaline Casts 12 H (0-2) /lpf Urine Mucus Rare H (None) /hpf Microbiology - Last 24 Hours (Table) 07/05/19 04:17 Urine Culture - Preliminary Urine,Voided Thrombosis Risk Factor Assmnt - Choose All That Apply Any of the Below Risk Factors Present?: Yes Each Factor Represents 1 point: Obesity (BMI >25) Other Risk Factors: Yes Each Risk Factor Represents 2 Points: Age 61-74 years Other congenital or acquired thrombophilia - If yes, enter type in comment: No Thrombosis Risk Factor Assessment Total Risk Factor Score: 3 Thrombosis Risk Factor Assessment Level: Moderate Risk
[2019-07-05] MEDS: ACETAMINOPHEN TAB 500 MG TAB PO SCH (21:13)
[2019-07-05] MEDS: ATORVASTATIN 40 MG TAB PO SCH (21:14)
[2019-07-05] MEDS: ESCITALOPRAM 20 MG TAB PO SCH (21:14)
[2019-07-06] MEDS: PANTOPRAZOLE 40 MG TABLET PO SCH (05:15)
[2019-07-06] MEDS: METOPROLOL TARTRATE 25 MG TAB PO SCH ×3 (05:15→20:01)
[2019-07-06] MEDS: FUROSEMIDE 20 MG TAB PO SCH (05:15)
[2019-07-06] MEDS: GABAPENTIN 100 MG CAP PO SCH ×3 (05:15→20:00)
[2019-07-06] MEDS: HYDROcodone/APAP 10-325MG 1 EACH TAB PO PRN ×2 (05:16→18:13)
[2019-07-06] MEDS: IPRATROPIUM-ALBUTEROL 3 ML NEB INHALATION SCH ×3 (07:35→20:37)
--- NOTE | 2019-07-06 08:07 | P.PAINCN ---
History of Present Illness - Reason for Consult Consult date: 07/06/19 Low back pain and hip pain Requesting physician: Nasim Colon - History of Present Illness Mailing is 69-year-old female who is followed in our pain clinic for procedures. She was last seen in our clinic on 06/23/2019. At that clinic visit she was found to have 2 positive diagnostic medial branch blocks. Given the positive diagnostic medial branch blocks she was to be scheduled for right lumbar radiofrequency ablation. She is on Eliquis, which must be held for 3 days prior to her procedure. Since her clinic visit she reports increasing in the same nature and quality of pain. She also states that she has pain on her right hip. Otherwise she continues to take her normal home medications which are norco 10/325 3 times per day, and gabapentin 100 times per day. She was admitted for exacerbation of the pain. When seeing her this morning she was resting on nasal cannula did not appear to be in any acute distress. After further discussion the patient was hoping to get her lumbar RFA earlier. The last dose of Elquis was on July 04. She reports her pain as a 15 out of 10. The patient states that she has her lumbar RFA scheduled for next Thursday. But she wanted to have the procedure earlier because that is the day that her 's ashes are being spread. Thus, she does have significant psychosocial stressors present. She states that she does have clearance from cardiology to hold eliquis Review of Systems Constitutional: Reports as per HPI Past Medical History Past Medical History: Atrial Fibrillation, Cancer, Chest Pain / Angina, Heart Failure, COPD, Fibromyalgia, GERD/Reflux, Myocardial Infarction ([place]), Osteoarthritis (OA), Pneumonia, Sleep Apnea/CPAP/BIPAP Additional Past Medical History / Comment(s): Chronic low back pain which radiates down bilateral legs, lumbar disc disease, spondylosis, lumbar compression fracture, myofascial pain syndrome, generalized arthritis, migraines, gout bilateral feet, osteoporosis, frequent falls, chronic urine r etention/incontinence/has bladder stimulator, 1972 R renal cancer with nephrectomy, anemia, cardiac murmur, home oxygen at 2-3L/NC ATC, KOFFI but device is broken, vertigo, narcolepsy, IBS, pt currently at [facility] for rehab Last Myocardial Infarction Date:: 2004 History of Any Multi-Drug Resistant Organisms: None Reported Past Surgical History: Appendectomy, Coronary Bypass/CABG, Heart Catheterization, Orthopedic Surgery, Pacemaker Additional Past Surgical History / Comment(s): Rt nephrectomy, lumber epidural injections-last one 03/07/19, bladder stimulator, fabricio carpal tunnel releases, surgery on left hand, 1 vessel CABG 2004, fabricio cataracts with lens implants, colonoscopy. Past Anesthesia/Blood Transfusion Reactions: Previous Problems w/ Anesthesia Additional Past Anesthesia/Blood Transfusion Reaction / Comm: Pt has received blood in past without reaction. Type of Cardiac Device: Permanent Pacemaker Device Placement Date:: 2006 Past Psychological History: Anxiety Additional Psychological History / Comment(s): She no longer drives. She am bulates with a walker. 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 She has home oxygen and a nebulizer. Has used VNA and help form [facility]- Patient currently resides at [facility] since 05/03/19 since recent spouse Smoking Status: Never smoker Past Alcohol Use History: None Reported Past Drug Use History: None Reported - Past Family History Mother Family Medical History: Diabetes Mellitus, Hypertension, Renal Disease Father Additional Family Medical History / Comment(s): Father comitted suicide. Family Family Medical History: Coronary Artery Disease (CAD) Medications and Allergies Home Medications Medication Instructions Recorded Confirmed Type Allopurinol [Zyloprim] 100 mg PO DAILY@0802/03/19 07/05/19 History Aspirin [[place] Aspirin EC] 81 mg PO DAILY@169902/03/19 07/05/19 History Carbidopa/Levodopa [Sinemet 25-250 1 tab PO BID@0800,1700 02/03/19 07/05/19 History mg] Escitalopram [Lexapro] 20 mg PO DAILY@0802/03/19 07/05/19 History Isosorbide Mononitrate ER [Imdur] 30 mg PO DAILY@0802/03/19 07/05/19 History Ferrous Sulfate [Iron] 325 mg PO DAILY@169903/01/19 07/05/19 History Nitroglycerin Sl Tabs [Nitrostat] 0.4 mg SUBLINGUAL Q5M PRN 03/01/19 07/05/19 History Omeprazole [PriLOSEC] 40 mg PO DAILY@0603/01/19 07/05/19 History Apixaban [Eliquis] 5 mg PO BID@0800,1700 05/15/19 07/05/19 History Atorvastatin [Lipitor] 40 mg PO HS@2100 05/15/19 07/05/19 History Bisacodyl [Dulcolax] 10 mg RECTAL DAILY PRN 05/15/19 07/05/19 History Na Phos,M-B/Na Phos,Di-Ba [Fleet 133 ml RECTAL DAILY PRN 05/15/19 07/05/19 History Adult] Nystatin [Nystop] 1 applic TOPICAL DAILY PRN 05/15/19 07/05/19 History Gabapentin [Neurontin] 100 mg PO TID@0600,1400,2100 #9 05/20/19 07/05/19 Rx capsule Modafinil [Provigil] 100 mg PO DAILY PRN #3 tablet 05/20/19 07/05/19 Rx Menthol [Biofreeze] 1 dose TOPICAL DAILY PRN 06/23/19 07/05/19 History Acetaminophen Tab [Tylenol Tab] 1,000 mg PO BID@0800,2100 07/05/19 07/05/19 History Caldesene Baby Powder 1 applic TOPICAL BID 07/05/19 07/05/19 History Carbidopa/Levodopa [Carbidopa-Levo 3 - 4 tab PO DAILY PRN 07/05/19 07/05/19 History 25-250 mg Odt] Docusate [Colace] 100 mg PO DAILY@0800 07/05/19 07/05/19 History Furosemide [Lasix] 20 mg PO DAILY@0600 07/05/19 07/05/19 History HYDROcodone/APAP 10-325MG [[place] 1 tab PO Q6HR PRN 07/05/19 07/05/19 History 10-325] Ipratropium-Albuterol Nebulize 3 ml INHALATION RT-TID 07/05/19 07/05/19 History [Duoneb 0.5 mg-3 mg/3 ml Soln] Magnesium Hydroxide [Milk of 2,400 mg PO DAILY PRN 07/05/19 07/05/19 History Magnesia] Metoprolol Tartrate [Lopressor] 25 mg PO TID@0600,1400,2100 07/05/19 07/05/19 History rOPINIRole HCL [Requip] 2 mg PO TID@0600,1400,2100 07/05/19 07/05/19 History Allergies Allergy/AdvReac Type Severity Reaction Status Date / Time adhesive tape Allergy skin peels Verified 07/05/19 08:59 off Fish Containing Products Allergy Nausea Verified 07/05/19 08:59 [Fish] Sulfa (Sulfonamide Allergy Unknown Verified 07/05/19 08:59 Antibiotics) Physical Exam Vitals: Vital Signs Temp Pulse Pulse Resp BP Pulse Ox 07/06/19 07:00 97.5 F L 82 16 99/67 96 07/06/19 05:10 71 119/63 07/06/19 00:54 97.6 F 74 18 103/62 93 L 07/05/19 21:10 78 96/61 07/05/19 19:26 68 07/05/19 19:15 68 07/05/19 19:04 98.1 F 68 18 94/60 96 07/05/19 14:19 98.6 F 76 17 126/78 93 L 07/05/19 11:51 70 07/05/19 11:41 70 Intake and Output 07/05/19 07/06/19 07/06/19 22:59 06:59 14:59 Other: Voiding Method Diaper # Voids 1 1 Physical exam showed an obese woman with nasal cannula in place. Initially she was resting comfortably and I awoke her from sleep. She did have pain on palpation to her right greater trochanter. She also had pain on palpation of the lumbar paraspinal muscles. Exam was limited given patient's lack of mobility. She was in a hospital bed and uses a wheelchair to cannula Results CBC & Chem 7: 07/05/19 03:27 07/05/19 03:27 Labs: Microbiology - Last 24 Hours (Table) 07/05/19 04:17 Urine Culture - Preliminary Urine,Voided Assessment and Plan Assessment: Assessment and plan: 1. 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 Right Greater Trochanteric Bursitis In summary this is a complicated 69-year-old female with multiple multiple medical comorbidities. His includes A. fib on Ahlquist, COPD on oxygen, obesity. She states she already has a lumbar RFA scheduled for next week. She also states she has clearance from her chicken raiser. An in-depth discussion occurred with the patient. She would have to be off her Ahlquist for 3 days prior to the procedure. She has only been off Ahlquist for 2 days, furthermore these procedures are done as an outpatient. Furthermore an RFA can cause increased pain initially. This is due to procedural pain and posterior RFA neuritis. 1. Interventions we will not perform the RFA today she has not appropriately off Eliquis. Furthermore, she may have an exacerbation of pain. Thus at this time we will try to add her on earlier in the week as an outpatient. 2. Medications her maps were reviewed which shows that she is receiving 3 10/325 [place] per day. Prescribed by her PCP. She also takes gabapentin 100 3 times a day. NSAIDs are relatively contraindicated given her use of aspirin and blood thinner. Agree with current inpatient management of 10/325 [place] every 6 hours when necessary. I have ordered lidocaine patch to the painful area. She can be prescribed lidocaine cream as an outpatient which may help with her pain until her outpatient procedure. 3. Imaging reviewed 4. Follow-up: There is no need to keep her as an inpatient from our perspective. We will coordinate with her chicken raiser and our team to try to have her admitted on earlier in the week. , Time with Patient: Less than 30 PQRS Measure Charge Sheet PQRS Narrative: Smoking Status Never smoker Do You Want the Pneumonia Vaccine Up to Date Vaccine AT THIS TIME? Narcotic Agreement Date Signed 03/29/19 Blood Pressure [Left Arm] 99/67 Blood Pressure 106/73 Pain Intensity [Back] 7 Pain Intensity 10 Pain Scale Used Numeric (1 - 10) Scale Used Non Verbal Pain Indicator Hx Alcohol Use (MH) No Home Medications: Ambulatory Orders Allopurinol [Zyloprim] 100 mg PO DAILY@79902/03/19 Aspirin [[place] Aspirin EC] 81 mg PO DAILY@169902/03/19 Carbidopa/Levodopa [Sinemet 25-250 mg] 1 tab PO BID@08,169902/03/19 Escitalopram [Lexapro] 20 mg PO DAILY@79902/03/19 Isosorbide Mononitrate ER [Imdur] 30 mg PO DAILY@0802/03/19 Ferrous Sulfate [Iron] 325 mg PO DAILY@169903/01/19 Nitroglycerin Sl Tabs [Nitrostat] 0.4 mg SUBLINGUAL Q5M PRN 03/01/19 Omeprazole [PriLOSEC] 40 mg PO DAILY@0600 03/01/19 Apixaban [Eliquis] 5 mg PO BID@0800,1700 05/15/19 Atorvastatin [Lipitor] 40 mg PO HS@209905/15/19 Bisacodyl [Dulcolax] 10 mg RECTAL DAILY PRN 05/15/19 Na Phos,M-B/Na Phos,Di-Ba [Fleet Adult] 133 ml RECTAL DAILY PRN 05/15/19 Nystatin [Nystop] 1 applic TOPICAL DAILY PRN 05/15/19 Gabapentin [Neurontin] 100 mg PO TID@0600,1400,2099 #9 capsule 05/20/19 Modafinil [Provigil] 100 mg PO DAILY PRN #3 tablet 05/20/19 Menthol [Biofreeze] 1 dose TOPICAL DAILY PRN 06/23/19 Acetaminophen Tab [Tylenol Tab] 1,000 mg PO BID@0800,209907/05/19 Caldesene Baby Powder 1 applic TOPICAL BID 07/05/19 Carbidopa/Levodopa [Carbidopa-Levo 25-250 mg Odt] 3 - 4 tab PO DAILY PRN 07/05/19 Docusate [Colace] 100 mg PO DAILY@0800 07/05/19 Furosemide [Lasix] 20 mg PO DAILY@0600 07/05/19 HYDROcodone/APAP 10-325MG [[place] 10-325] 1 tab PO Q6HR PRN 07/05/19 Ipratropium-Albuterol Nebulize [Duoneb 0.5 mg-3 mg/3 ml Soln] 3 ml INHALATION RT-TID 07/05/19 Magnesium Hydroxide [Milk of Magnesia] 2,400 mg PO DAILY PRN 07/05/19 Metoprolol Tartrate [Lopressor] 25 mg PO TID@0600,1400,209907/05/19 rOPINIRole HCL [Requip] 2 mg PO TID@0600,1400,209907/05/19
[2019-07-06] MEDS: ACETAMINOPHEN TAB 500 MG TAB PO SCH ×3 (08:31→19:59)
[2019-07-06] MEDS: ISOSORBIDE MONONITRATE ER 30 MG TAB.ER.24H PO SCH (09:00)
[2019-07-06] MEDS: DOCUSATE 100 MG CAP PO SCH (09:08)
[2019-07-06] MEDS: ALLOPURINOL 100 MG TAB PO SCH (09:08)
[2019-07-06] MEDS: CARBIDOPA-LEVODOPA 25-250 MG 1 EACH TAB PO SCH ×2 (09:08→18:11)
[2019-07-06] MEDS: APIXABAN 5 MG TAB PO SCH ×2 (09:08→18:09)
[2019-07-06] MEDS: LIDOCAINE 5% PATCH TOPICAL SCH (09:09)
[2019-07-06] MEDS: FERROUS SULFATE 325 MG TAB PO SCH (18:09)
[2019-07-06] MEDS: ASPIRIN 81 MG PO SCH (18:09)
[2019-07-06] MEDS: ESCITALOPRAM 20 MG TAB PO SCH (20:00)
[2019-07-06] MEDS: ATORVASTATIN 40 MG TAB PO SCH (20:00)
--- NOTE | 2019-07-06 23:55 | P.PN ---
Progress Note - Text Progress Note Date: 07/06/19 Chief Complaint: Right hip pain Interval history: This is a 69-year-old patient of Dr. Weiss whose chronic stable medical conditions include restless leg syndrome, GERD, renal cell carcinoma with right nephrectomy, fibromyalgia, Cuong hypercapnic respiratory failure, permanent pacemaker, coronary artery disease with bypass, chronic bladder dysfunction, chronic narcolepsy, obstructive sleep apnea does not use CPAP, COPD, chronic L1 compression fracture, CHF from diastolic dysfunction EF 50-55%. Patient has been living at [facility] Since May 03. Patient has chronic pain. Does follow with Dr. Rosales from pain services. Patient has increasing pain in the right hip and the right leg. Progressively getting worse. Next appointment is in a few days. As she cannot wait she was sent down to the [facility]. Pain management was consulted. No fever no chills. tolerating a diet. Patient is nonambulatory Patient admitted with uncontrolled pain acute on chronic in the right hip and the right leg Today-laying in bed. Seen by pain management services. They ordered a Lidoderm patch. Patient tolerated diet Review of systems: Was done for constitutional, cardiovascular, GI, pulmonary. Musculoskeletal relevant finding as above Active Medications Acetaminophen (Tylenol Tab) 1,000 mg PO BID@0800,2100 [facility] Last Admin: 07/06/19 19:59 Dose: 1,000 mg Documented by: Hydrocodone Bitart/Acetaminophen ([place] 10) 1 each PO Q6HR PRN PRN Reason: Pain Last Admin: 07/06/19 18:13 Dose: 1 each Documented by: Albuterol/Ipratropium (Duoneb 0.5 Mg-3 Mg/3 Ml Soln) 3 ml INHALATION RT-TID [facility] Last Admin: 07/06/19 20:37 Dose: 3 ml Documented by: Allopurinol (Zyloprim) 100 mg PO DAILY@0800 [facility] Last Admin: 07/06/19 09:08 Dose: 100 mg Documented by: Apixaban (Eliquis) 5 mg PO BID@0800,1700 [facility] Last Admin: 07/06/19 18:09 Dose: 5 mg Documented by: Aspirin (Aspirin) 81 mg PO DAILY@1700 [facility] Last Admin: 07/06/19 18:09 Dose: 81 mg Documented by: Atorvastatin Calcium (Lipitor) 40 mg PO HS@2100 [facility] Last Admin: 07/06/19 20:00 Dose: Not Given Documented by: Bisacodyl (Dulcolax) 10 mg RECTAL DAILY PRN PRN Reason: Constipation Carbidopa/Levodopa (Sinemet 25-250) 1 each PO BID@0800,1700 [facility] Last Admin: 07/06/19 18:11 Dose: 1 each Documented by: Carbidopa/Levodopa (Sinemet 25-250) 1 each PO Q6H PRN PRN Reason: RLS Docusate Sodium (Colace) 100 mg PO DAILY@0800 [facility] Last Admin: 07/06/19 09:08 Dose: 100 mg Documented by: Escitalopram Oxalate (Lexapro) 20 mg PO HS@2100 [facility] Last Admin: 07/06/19 20:00 Dose: 20 mg Documented by: Ferrous Sulfate (Feosol) 325 mg PO DAILY@1700 [facility] Last Admin: 07/06/19 18:09 Dose: 325 mg Documented by: Furosemide (Lasix) 20 mg PO DAILY@0600 [facility] Last Admin: 07/06/19 05:15 Dose: 20 mg Documented by: Gabapentin (Neurontin) 100 mg PO TID@0600,1400,2100 [facility] Last Admin: 07/06/19 20:00 Dose: 100 mg Documented by: Isosorbide Mononitrate (Imdur) 30 mg PO DAILY@0800 [facility] Last Admin: 07/06/19 09:00 Dose: Not Given Documented by: Lidocaine (Lidoderm) 1 patch TOPICAL DAILY [facility] Last Admin: 07/06/19 09:09 Dose: 1 patch Documented by: Magnesium Hydroxide (Milk Of Magnesia) 2,400 mg PO DAILY PRN PRN Reason: Constipation Metoprolol Tartrate (Lopressor) 25 mg PO TID@0600,1400,2100 [facility] Last Admin: 07/06/19 20:01 Dose: Not Given Documented by: Modafinil (Provigil) 100 mg PO DAILY PRN PRN Reason: SLEEPINESS Naloxone HCl (Narcan) 0.2 mg IV Q2M PRN PRN Reason: Opioid Reversal Nitroglycerin (Nitrostat) 0.4 mg SUBLINGUAL Q5M PRN PRN Reason: Chest Pain Nystatin (Mycostatin Powder) 1 applic TOPICAL DAILY PRN PRN Reason: GROIN,UNDER BREASTS Pantoprazole Sodium (Protonix) 40 mg PO DAILY@0600 [facility] Last Admin: 07/06/19 05:15 Dose: 40 mg Documented by: Ropinirole HCl (Requip) 2 mg PO TID@0600,1400,2100 [facility] Last Admin: 07/06/19 19:59 Dose: 2 mg Documented by: Sodium Biphosphate/Sodium Phosphate (Fleet Adult) 133 ml RECTAL DAILY PRN PRN Reason: Constipation Physical examination: VITAL SIGNS: a 97.5, 82, 16, 90 stent by 67, 96% on 3 L GENERAL: Laying in bed, awake not in distress EYES: Pupils equal. Conjunctiva normal. HEENT: External appearance of nose and ears normal, oral cavity grossly normal. NECK: JVD unable to assess; masses not palpable. HEART: First and second heart sounds are normal; no edema. LUNGS: Respiratory rate normal; distant breath sounds. ABDOMEN: Soft, nontender, liver spleen not palpable, no masses palpable. PSYCH: [Alert and oriented x3; mood and affect bit anxious l. INVESTIGATIONS, reviewed in the clinical context: No labs from today Admission labs White count 5.2 hemoglobin 10.1 platelets 73 potassium 4.4 bun 43 creatinine 0.96 Assessment: -Lumbar spondylosis without radiculopathy -Right greater trochanteric bursitis, with acute flare up of pain -Chronic congestive heart failure from diastolic dysfunction EF 50-55% -Chronic L1 compression fracture -COPD in a nonsmoker -Obstructive sleep apnea does not use CPAP machine -Chronic narcolepsy -Chronic bladder dysfunction with the stimulator urine-coronary artery disease with a history of bypass -Permanent pacemaker -Chronic hypercapnic respiratory failure on oxygen -Chronic fibromyalgia -Renal cell carcinoma with right nephrectomy -GERD line --restless leg syndrome Plan: Patient seen by Dr. Agarwal from a management service. Patient is only scheduled for a lumbar RFA next week. She is to be off eliquis for 3 days at least. Patient's was discussed and was okay to go back to the [facility]. Prior authorization was not received to go back to the [facility]CF. Pending the same.
[2019-07-07] MEDS: HYDROcodone/APAP 10-325MG 1 EACH TAB PO PRN (00:02)
[2019-07-07] MEDS: ATORVASTATIN 40 MG TAB PO SCH (00:10)
[2019-07-07] MEDS: GABAPENTIN 100 MG CAP PO SCH ×2 (05:28→16:02)
[2019-07-07] MEDS: PANTOPRAZOLE 40 MG TABLET PO SCH (05:28)
[2019-07-07] MEDS: METOPROLOL TARTRATE 25 MG TAB PO SCH ×2 (05:28→16:02)
[2019-07-07] MEDS: IPRATROPIUM-ALBUTEROL 3 ML NEB INHALATION SCH ×2 (08:22→13:23)
[2019-07-07] MEDS: LIDOCAINE 5% PATCH TOPICAL SCH (08:54)
[2019-07-07] MEDS: DOCUSATE 100 MG CAP PO SCH (08:54)
[2019-07-07] MEDS: FUROSEMIDE 20 MG TAB PO SCH (08:54)
[2019-07-07] MEDS: APIXABAN 5 MG TAB PO SCH (08:54)
[2019-07-07] MEDS: ALLOPURINOL 100 MG TAB PO SCH (08:55)
[2019-07-07] MEDS: CARBIDOPA-LEVODOPA 25-250 MG 1 EACH TAB PO SCH (08:55)
[2019-07-07] MEDS: ISOSORBIDE MONONITRATE ER 30 MG TAB.ER.24H PO SCH (08:55)
[2019-07-07] MEDS: ACETAMINOPHEN TAB 500 MG TAB PO SCH (08:55)
--- NOTE | 2019-07-07 13:37 | XR ---
EXAMINATION TYPE: XR elbow complete LT DATE OF EXAM: 07/07/2019 CLINICAL HISTORY: Pain. Twisting injury. TECHNIQUE: Frontal, lateral and oblique images of the left elbow are obtained. COMPARISON: None FINDINGS: There are abnormal fat pad signs with visualization of posterior fat pad and anterior bulg ing of anterior fat pad. Distal humerus shows destructive and lower erosive changes. There is moderat e spurring in the radial head. No definitive linear lucency is present. Some faint calcifications or ossifications along course of the flexor tendon near attachment medial epicondyle is present IMPRESSION: As above. Nonspecific findings. Correlate for underlying inflammatory arthritis or chocol ate-type arthropathy. Joint effusion or hemarthrosis. Cannot exclude acute nondisplaced intra-articul ar fracture given abnormal fat pad signs and history of trauma but underlying chronic changes are pre sent. Consider CT/MRI evaluation based on clinical correlation.
[2019-07-07 14:40] VITALS: BP 101/56; PULSE 74; RESP 15; TEMP 97.8
--- NOTE | 2019-07-07 14:57 | P.DS ---
Providers Date of admission: 07/05/19 05:21 Expected date of discharge: 07/07/19 Attending physician: Nasim Colon Consults: 07/07/19 11:52 Consult Physician Routine Consulting Provider: Hakeem Escalante Consult Reason/Comments: left elbow pain Do you want consulting provider notified?: Yes [facility]: Hospital course: This is a 69-year-old patient of Dr. Weiss whose chronic stable medical conditions include restless leg syndrome, GERD, renal cell carcinoma with right nephrectomy, fibromyalgia, Cuong hypercapnic respiratory failure, permanent pacemaker, coronary artery disease with bypass, chronic bladder dysfunction, chronic narcolepsy, obstructive sleep apnea does not use CPAP, COPD, chronic L1 compression fracture, CHF from diastolic dysfunction EF 50-55%. Patient has been living at [facility] Since May 03. Patient has chronic pain. Does follow with Dr. Rosales from pain services. Patient has increasing pain in the right hip and the right leg. Progressively getting worse. Next appointment is in a few days. As she cannot wait she was sent down to the [facility]. Pain management was consulted. No fever no chills. tolerating a diet. Patient is nonambulatory Patient admitted with uncontrolled pain acute on chronic in the right hip and the right leg. Patient was seen by the pain management team. Lateral done patch was added. Radiofrequency ablation will be done next week. As scheduled. This was discussed with the patient. Patient stable. Tolerating a diet. More comfortable. Consultation: Dr. Mcqueen from pain management Dr. Choi from [facility] left elbow pain Physical examination: VITAL SIGNS: 97.8, 74, 15, 101/56, 97% on 3 L GENERAL: Sitting up, comfortable EYES: Pupils equal. Conjunctiva normal. HEENT: External appearance of nose and ears normal, oral cavity grossly normal. NECK: JVD unable to assess; masses not palpable. HEART: First and second heart sounds are normal; no edema. LUNGS: Respiratory rate normal; distant breath sounds. ABDOMEN: Soft, nontender, liver spleen not palpable, no masses palpable. PSYCH: [Alert and oriented x3; mood and affect bit anxious l. INVESTIGATIONS, reviewed in the clinical context: No labs from today Admission labs White count 5.2 hemoglobin 10.1 platelets 73 potassium 4.4 bun 43 creatinine 0.96 Assessment: -Lumbar spondylosis without radiculopathy -Right greater trochanteric bursitis, with acute flare up of pain -Chronic congestive heart failure from diastolic dysfunction EF 50-55% -Chronic L1 compression fracture -COPD in a nonsmoker -Obstructive sleep apnea does not use CPAP machine -Chronic narcolepsy -Chronic bladder dysfunction with the stimulator urine-coronary artery disease with a history of bypass -Permanent pacemaker -Chronic hypercapnic respiratory failure on oxygen -Chronic fibromyalgia -Renal cell carcinoma with right nephrectomy -GERD line --restless leg syndrome Disposition: [facility] Patient Condition at Discharge: Stable Plan - Discharge Summary Discharge Rx Participant: Yes New Discharge Prescriptions: New Lidocaine 5% Patch [Lidoderm 5% Patch] 1 patch TOPICAL DAILY #2 patch Continue Escitalopram [Lexapro] 20 mg PO DAILY@0800 Carbidopa/Levodopa [Sinemet 25-250 mg] 1 tab PO BID@0800,1700 Allopurinol [Zyloprim] 100 mg PO DAILY@0800 Isosorbide Mononitrate ER [Imdur] 30 mg PO DAILY@0800 Aspirin [[place] Aspirin EC] 81 mg PO DAILY@1700 Omeprazole [PriLOSEC] 40 mg PO DAILY@0600 Ferrous Sulfate [Iron] 325 mg PO DAILY@1700 Nitroglycerin Sl Tabs [Nitrostat] 0.4 mg SUBLINGUAL Q5M PRN PRN Reason: Chest Pain Nystatin [Nystop] 1 applic TOPICAL DAILY PRN PRN Reason: GROIN,UNDER BREASTS Na Phos,M-B/Na Phos,Di-Ba [Fleet Adult] 133 ml RECTAL DAILY PRN PRN Reason: Constipation Bisacodyl [Dulcolax] 10 mg RECTAL DAILY PRN PRN Reason: Constipation Apixaban [Eliquis] 5 mg PO BID@0800,1700 Atorvastatin [Lipitor] 40 mg PO HS@2100 Menthol [Biofreeze] 1 dose TOPICAL DAILY PRN PRN Reason: pain Caldesene Baby Powder 1 applic TOPICAL BID Acetaminophen Tab [Tylenol] 1,000 mg PO BID@0800,2100 Carbidopa/Levodopa [Carbidopa-Levo 25-250 mg Odt] 3 - 4 tab PO DAILY PRN PRN Reason: RLS Docusate [Colace] 100 mg PO DAILY@0800 Furosemide [Lasix] 20 mg PO DAILY@06 Ipratropium-Albuterol Nebulize [Duoneb 0.5 mg-3 mg/3 ml Soln] 3 ml INHALATION RT-TID Magnesium Hydroxide [Milk of Magnesia] 2,400 mg PO DAILY PRN PRN Reason: Constipation Metoprolol Tartrate [Lopressor] 25 mg PO TID@0600,1399,2099 Gabapentin [Neurontin] 100 mg PO TID@0600,1399,2099 #9 capsule HYDROcodone/APAP 10-325MG [[place] 10-325] 1 tab PO Q6HR PRN #12 tab PRN Reason: Pain Modafinil [Provigil] 100 mg PO DAILY PRN #3 tablet PRN Reason: SLEEPINESS rOPINIRole HCL [Requip] 2 mg PO TID@0600,1399,2099 #9 tablet Discharge Medication List Allopurinol [Zyloprim] 100 mg PO DAILY@0800 02/03/19 [History] Aspirin [[place] Aspirin EC] 81 mg PO DAILY@169902/03/19 [History] Carbidopa/Levodopa [Sinemet 25-250 mg] 1 tab PO BID@0800,169902/03/19 [History] Escitalopram [Lexapro] 20 mg PO DAILY@0802/03/19 [History] Isosorbide Mononitrate ER [Imdur] 30 mg PO DAILY@0802/03/19 [History] Ferrous Sulfate [Iron] 325 mg PO DAILY@169903/01/19 [History] Nitroglycerin Sl Tabs [Nitrostat] 0.4 mg SUBLINGUAL Q5M PRN 03/01/19 [History] Omeprazole [PriLOSEC] 40 mg PO DAILY@0603/01/19 [History] Apixaban [Eliquis] 5 mg PO BID@0800,17005/15/19 [History] Atorvastatin [Lipitor] 40 mg PO HS@209905/15/19 [History] Bisacodyl [Dulcolax] 10 mg RECTAL DAILY PRN 05/15/19 [History] Na Phos,M-B/Na Phos,Di-Ba [Fleet Adult] 133 ml RECTAL DAILY PRN 05/15/19 [History] Nystatin [Nystop] 1 applic TOPICAL DAILY PRN 05/15/19 [History] Menthol [Biofreeze] 1 dose TOPICAL DAILY PRN 06/23/19 [History] Acetaminophen Tab [Tylenol] 1,000 mg PO BID@0800,209907/05/19 [History] [place] Baby Powder 1 applic TOPICAL BID 07/05/19 [History] Carbidopa/Levodopa [Carbidopa-Levo 25-250 mg Odt] 3 - 4 tab PO DAILY PRN 07/05/19 [History] Docusate [Colace] 100 mg PO DAILY@79907/05/19 [History] Furosemide [Lasix] 20 mg PO DAILY@59907/05/19 [History] Ipratropium-Albuterol Nebulize [Duoneb 0.5 mg-3 mg/3 ml Soln] 3 ml INHALATION RT-TID 07/05/19 [History] Magnesium Hydroxide [Milk of Magnesia] 2,400 mg PO DAILY PRN 07/05/19 [History] Metoprolol Tartrate [Lopressor] 25 mg PO TID@0600,1400,2100 07/05/19 [History] Gabapentin [Neurontin] 100 mg PO TID@0600,1399,2099 #9 capsule 07/06/19 [Rx] HYDROcodone/APAP 10-325MG [[place] 10-325] 1 tab PO Q6HR PRN #12 tab 07/06/19 [Rx] Lidocaine 5% Patch [Lidoderm 5% Patch] 1 patch TOPICAL DAILY #2 patch 07/06/19 [Rx] Modafinil [Provigil] 100 mg PO DAILY PRN #3 tablet 07/06/19 [Rx] rOPINIRole HCL [Requip] 2 mg PO TID@0600,1399,2099 #9 tablet 07/06/19 [Rx] Follow up Appointment(s)/Referral(s): Jason Weiss DO [Primary Care Provider] - 1-2 days Josefina Rosales MD [STAFF PHYSICIAN] - 07/13/19 6:15 am (already scheduled) Patient Instructions/Handouts: Generalized Anxiety Disorder (ED) Activity/Diet/Wound Care/Special Instructions: Please hold eliquis starting thursday if ordering physician okay with that for procedure thursday.
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
== END 2019-07-07 16:55 ==
LOC: EC 02:47 → 4SSUR 05:21
PROVIDERS: ADMIT Hospitalist; ATTEND Hospitalist
DX: M47.816 Spondylosis without myelopathy or radiculopathy, lumbar region (principal); M70.61 Trochanteric bursitis, right hip; I50.32 Chronic diastolic (congestive) heart failure; M48.56XA Collapsed vertebra, not elsewhere classified, lumbar region, initial encounter for fracture; J44.9 Chronic obstructive pulmonary disease, unspecified; G47.33 Obstructive sleep apnea (adult) (pediatric); G47.419 Narcolepsy without cataplexy; N31.9 Neuromuscular dysfunction of bladder, unspecified; I25.10 Atherosclerotic heart disease of native coronary artery without angina pectoris; Z95.1 Presence of aortocoronary bypass graft; Z95.0 Presence of cardiac pacemaker; J96.12 Chronic respiratory failure with hypercapnia; Z99.81 Dependence on supplemental oxygen; M79.7 Fibromyalgia; K21.9 Gastro-esophageal reflux disease without esophagitis; G25.81 Restless legs syndrome; G89.29 Other chronic pain; I48.91 Unspecified atrial fibrillation; I25.2 Old myocardial infarction; M19.90 Unspecified osteoarthritis, unspecified site; M10.9 Gout, unspecified; M81.0 Age-related osteoporosis without current pathological fracture; R32 Unspecified urinary incontinence; D64.9 Anemia, unspecified; R33.9 Retention of urine, unspecified; K58.9 Irritable bowel syndrome, unspecified; F41.9 Anxiety disorder, unspecified; E86.0 Dehydration; Z85.528 Personal history of other malignant neoplasm of kidney; Z87.01 Personal history of pneumonia (recurrent); R29.6 Repeated falls; Z96.0 Presence of urogenital implants; E66.9 Obesity, unspecified; Z68.42 Body mass index [BMI] 45.0-49.9, adult; Z79.01 Long term (current) use of anticoagulants; Z79.82 Long term (current) use of aspirin; Z79.899 Other long term (current) drug therapy; Z79.891 Long term (current) use of opiate analgesic; Z91.013 Allergy to seafood; Z88.2 Allergy status to sulfonamides; Z91.048 Other nonmedicinal substance allergy status; Z90.5 Acquired absence of kidney; Z83.3 Family history of diabetes mellitus; Z82.49 Family history of ischemic heart disease and other diseases of the circulatory system; Z81.8 Family history of other mental and behavioral disorders; Z84.1 Family history of disorders of kidney and ureter
CPT/HCPCS: 99285; 36415; 94640 ×6; 94760 ×2; 93005; 97530 ×2; 97163; 97535 ×2; 97166; 80048; 82550; 83605; 83735; 85025; 85610; 81001; 87086; 87077; 87186; 73080; 71045; G0378 ×3

== ENCOUNTER 2019-07-13 05:40 | Day surgery (SDC) | payer MEDICARE, OTHER ==
[2019-07-11 10:36] VITALS: BMI 45.8
[2019-07-13] MEDS ORDERED: LACTATED RINGERS 1,000 ML IV ONE (06:23)
[2019-07-13 06:24] VITALS: TEMP 97.3
[2019-07-13] MEDS ORDERED: LIDOCAINE 1% 20 ML VIAL (10MG/ML) FOR IV START INTRADERMA ONE (06:24)
--- NOTE | 2019-07-13 07:42 | P.PCN ---
Date of Procedure: 07/13/19 Procedure(s) Performed: PREOPERATIVE DIAGNOSIS : Lumbar spondylosis with Facet Arthropathy without myelopathy POSTOPERATIVE DIAGNOSIS: same PROCEDURE: Initially a lumbar RFA was planned however the magnet was placed patient appear to go into V. tach. She was hemodynamically stable throughout this entire event. Thus the RFA was canceled. Instead medial branch blocks were performed Lumbar medial branch block with fluoroscopy at medial branch of right L3, L4 and L5 dorsal rami ANESTHESIA: Moderate sedation with Versed and fentanyl Surgeon: Sangita Mcqueen MD PROCEDURE INDICATION: Low back pain lumbar spondylosis PROCEDURE DESCRIPTION: the patient was seen and identified in the preop holding area , risks and benefits and possible complications of the procedure and alternative were discussed with the patient, and the patient agreed to proceed with the procedure and signed the consent IV was started and vital signs monitored during the procedure and fluoroscopy was used to maximize the benefit and accuracy of the needle placement, and sedation was given to decrease patient anxiety, patient was taken to the procedure room and placed in prone position vital signs monitored in the back prepped. Under strict sterile technique using a right oblique fluoroscopy ,the junction of the transverse process and the superior articulating process of the L3- 4 , L4- 5, and L5-S1 vertebra which corresponding to the fluoroscopy image of the eye of the Tomás dog on the block side for the medial branches and subsequently , after local infiltration of skin and subcutaneous tissues with lidocaine 1% one mL at each level ,then one 25-gauge Quincke-type needles was placed at the junction of the base of the transverse process and the superior articular process at the appropriate level, and the needle was advanced until the periosteum contacted, needle placement confirmed with AP oblique and lateral view and after appropriate needle placement confirmed, and after negative aspiration, 3 mL of Marcaine 0.5% mixed with 40 mg kenalog in divided doses was injected at each level and the needle subsequently removed []. At the end of the procedure and the needles removed and a bandage applied after the skin was cleaned the cleaning solution patient taken to recovery room in stable condition and monitors in the recovery room for 20-30 minutes and discharged home in stable condition after discharge criteria met and patient will follow up with the pain clinic in 2-4 weeks EBL: Minimal COMPLICATION: RFA was canceled given the patient's heart rhythm
[2019-07-13] MEDS ORDERED: IV FLUID CONTINUATION 1,000 ML IV ONE ×2 (07:51)
--- NOTE | 2019-07-13 08:35 | FL ---
EXAMINATION TYPE: FL guided pain mgmt statistic DATE OF EXAM: 07/13/2019 COMPARISON: NONE HISTORY: Back pain. TECHNIQUE: Fluoroscopy. FINDINGS: Fluoroscopic guidance was provided during procedure performed by Dr. Delong. A t otal of 46 seconds of fluoroscopic time was utilized during the procedure and 4 spot images was acqui red demonstrate multiple level localization of the lumbar spine. IMPRESSION: As Above.
[2019-07-13 09:43] VITALS: RESP 18
[2019-07-13 09:44] VITALS: BP 119/83; PULSE 65
--- NOTE | 2019-07-13 11:23 | P.CRDCN ---
History of Present Illness History of present illness: This is a pleasant 69-year-old female past medical history significant for coronary artery disease status post bypass grafting, paroxysmal atrial fibrillation on long-term anticoagulation, status post permanent pacemaker implantation, chronic diastolic heart failure, COPD, fibromyalgia, obstructive sleep apnea, dyslipidemia and hypertension. She follows with a soil checker at [facility]. Weakness in consultation secondary to arrhythmia noted during the procedure. She is sedated and not able to give accurate history. Information is obtained from the nursing staff and medical record. She is here for a pain procedure with anesthesia. A magnet was placed over the pacemaker per anesthesia and at that time she went into a paced rhythm which was interpreted as VT. The magnet was removed and the rhythm subsided. Telemetry tracings reviewed thoroughly, there was no VT. The procedure was aborted and we were asked to see the patient urgently in recovery. Pt is seen and examined laying flat in bed in no acute distress. She did receive some sedation for the procedure and is sedated at this time. She is arousable but quite lethargic. Unable to obtain accurate review of systems secondary to altered mental status and lethargy most likely from IV sedation. Blood pressure 119/83 heart rate 65 afebrile maintaining oxygen saturation on nasal cannula GENERAL: This is a 69-year-old female in no apparent distress at the time of my examination. HEENT: Head is atraumatic, normocephalic. Pupils are equal, round. Sclerae anicteric. Conjunctivae are clear. Mucous membranes of the mouth are moist. Neck is supple. There is no jugular venous distention. No carotid bruit is heard. LUNGS: Clear to auscultation no wheezes, rales or rhonchi. No chest wall tenderness is noted on palpation or with deep breathing. HEART: Regular rate and rhythm with systolic ejection murmur at the left sternal border, no rubs or gallops. S1 and S2 heard. ABDOMEN: Soft, nontender. Bowel sounds are heard. No organomegaly noted. EXTREMITIES: Trace bilateral lower extremity nonpitting edema and no calf tenderness noted. VASCULAR: Radial and dorsalis pedis pulses palpated, no evidence of clubbing. NEUROLOGIC: Patient is sedated, but arousable. ASSESSMENT History of permanent pacemkaer implantation Coronary artery disease s/p bypass grafting Paroxysmal atrial fibrillation on long term care social worker anticoagulation Hypertension Dyslipidemia Chronic diastolic heart failure, currently euvolemic Chronic back pain PLAN We were called for evaluation of ventricular tachycardia while undergoing pain procedure. Apparently the magnet was placed over the pacemaker per anesthesia and at that time she went into a paced rhythm which was interpreted as VT. The magnet was removed and the rhythm subsided. Telemetry tracings reviewed thoroughly, there was no VT. This was communicated to the physician, Dr. Mcqueen and nursing staff at the bedside. Proceed with procedure as planned. Thank you kindly for this consultation. Nurse Practitioner note has been reviewed, I agree with a documented findings and plan of care. Patient was seen and examined. Past Medical History Past Medical History: Atrial Fibrillation, Coronary Artery Disease (CAD), Cancer, Chest Pain / Angina, Heart Failure, COPD, Fibromyalgia, GERD/Reflux, Myocardial Infarction ([place]), Osteoarthritis (OA), Pneumonia, Sleep Apnea/CPAP/BIPAP Additional Past Medical History / Comment(s): Chronic low back pain which radiates down bilateral legs, lumbar disc disease, spondylosis, lumbar compression fracture, myofascial pain syndrome, generalized arthritis, migraines, gout bilateral feet, osteoporosis, frequent falls, chronic urine retention/incontinence/has bladder stimulator, 1972 R renal cancer with nephrectomy, anemia, cardiac murmur, home oxygen at 2-3L/NC ATC, KOFFI but device is broken, vertigo, narcolepsy, IBS, RESTLESS LEG, [facility] currently at [facility] for rehab. Last Myocardial Infarction Date:: 2004 History of Any Multi-Drug Resistant Organisms: None Reported Past Surgical History: Appendectomy, Coronary Bypass/CABG, Heart Catheterization, Orthopedic Surgery, Pacemaker Additional Past Surgical History / Comment(s): Rt nephrectomy, lumber epidural injections-last one 03/07/19, bladder stimulator, fabricio carpal tunnel releases, surgery on left hand, 1 vessel CABG 2004, fabricio cataracts with lens implants, colonoscopy. Past Anesthesia/Blood Transfusion Reactions: Unable to Obtain Additional Past Anesthesia/Blood Transfusion Reaction / Comment(s): Pt has received blood in past without reaction. Type of Cardiac Device: Permanent Pacemaker Device Placement Date:: 2006 Smoking Status: Never smoker - Past Family History Mother Family Medical History: Diabetes Mellitus, Hypertension, Renal Disease Father Additional Family Medical History / Comment(s): Father comitted suicide. Family Family Medical History: Coronary Artery Disease (CAD) Medications and Allergies Home Medications Medication Instructions Recorded Confirmed Type Allopurinol [Zyloprim] 100 mg PO DAILY@0800 02/03/19 07/11/19 History Aspirin [[place] Aspirin EC] 81 mg PO DAILY@1700 02/03/19 07/11/19 History Carbidopa/Levodopa [Sinemet 25-250 1 tab PO BID@0800,1700 02/03/19 07/11/19 History mg] Escitalopram [Lexapro] 20 mg PO DAILY@0800 02/03/19 07/11/19 History Isosorbide Mononitrate ER [Imdur] 30 mg PO DAILY@0800 02/03/19 07/11/19 History Ferrous Sulfate [Iron] 325 mg PO DAILY@1700 03/01/19 07/11/19 History Nitroglycerin Sl Tabs [Nitrostat] 0.4 mg SUBLINGUAL Q5M PRN 03/01/19 07/11/19 History Omeprazole [PriLOSEC] 40 mg PO DAILY@0600 03/01/19 07/11/19 History Apixaban [Eliquis] 5 mg PO BID@0800,1700 05/15/19 07/11/19 History Atorvastatin [Lipitor] 40 mg PO HS@2100 05/15/19 07/11/19 History Bisacodyl [Dulcolax] 10 mg RECTAL DAILY PRN 05/15/19 07/11/19 History Na Phos,M-B/Na Phos,Di-Ba [Fleet 133 ml RECTAL DAILY PRN 05/15/19 07/11/19 History Adult] Nystatin [Nystop] 1 applic TOPICAL DAILY PRN 05/15/19 07/11/19 History Menthol [Biofreeze] 1 dose TOPICAL DAILY PRN 06/23/19 07/11/19 History Acetaminophen Tab [Tylenol] 1,000 mg PO BID@0800,2100 07/05/19 07/11/19 History Caldesene Baby Powder 1 applic TOPICAL BID 07/05/19 07/11/19 History Carbidopa/Levodopa [Carbidopa-Levo 3 - 4 tab PO DAILY PRN 07/05/19 07/11/19 History 25-250 mg Odt] Docusate [Colace] 100 mg PO DAILY@0800 07/05/19 07/11/19 History Furosemide [Lasix] 20 mg PO DAILY@0600 07/05/19 07/11/19 History Ipratropium-Albuterol Nebulize 3 ml INHALATION RT-TID 07/05/19 07/11/19 History [Duoneb 0.5 mg-3 mg/3 ml Soln] Magnesium Hydroxide [Milk of 2,400 mg PO DAILY PRN 07/05/19 07/11/19 History Magnesia] Metoprolol Tartrate [Lopressor] 25 mg PO TID@0600,1400,2100 07/05/19 07/11/19 History Gabapentin [Neurontin] 100 mg PO TID@0600,1400,2100 #9 07/06/19 07/11/19 Rx capsule HYDROcodone/APAP 10-325MG [[place] 1 tab PO Q6HR PRN #12 tab 07/06/19 07/11/19 Rx 10-325] Lidocaine 5% Patch [Lidoderm 5% 1 patch TOPICAL DAILY #2 patch 07/06/19 07/11/19 Rx Patch] Modafinil [Provigil] 100 mg PO DAILY PRN #3 tablet 07/06/19 07/11/19 Rx rOPINIRole HCL [Requip] 2 mg PO TID@0600,1400,2100 #9 07/06/19 07/11/19 Rx tablet Allergies Allergy/AdvReac Type Severity Reaction Status Date / Time adhesive tape Allergy skin peels Verified 07/11/19 08:28 off Fish Containing Products Allergy Nausea Verified 07/11/19 08:28 [Fish] Sulfa (Sulfonamide Allergy Unknown Verified 07/11/19 08:28 Antibiotics) Physical Exam Vitals: Vital Signs Temp Pulse Resp BP Pulse Ox 07/13/19 09:30 65 18 119/83 100 07/13/19 09:15 60 18 100 07/13/19 08:48 60 16 125/75 100 07/13/19 08:30 59 L 124/70 100 07/13/19 08:15 60 16 118/70 100 07/13/19 08:00 57 L 16 92/62 99 07/13/19 07:48 57 L 16 110/62 100 07/13/19 06:23 97.3 F L 53 L 18 127/60 100 Intake and Output 07/12/19 07/13/19 07/13/19 22:59 06:59 14:59 Intake Total 100 0 Output Total 100 Balance 100 -100 Intake: IV 100 0 Output: Urine 100 Results Intake and Output 07/12/19 07/13/19 07/13/19 22:59 06:59 14:59 Intake Total 100 0 Output Total 100 Balance 100 -100 Intake: IV 100 0 Output: Urine 100
== END 2019-07-13 10:10 | disposition home or self-care (01) ==
LOC: ORPAIN 05:40
PROVIDERS: ATTEND Student in an Organized Health Care Education/Training Program
DX: G89.29 Other chronic pain (principal); M47.26 Other spondylosis with radiculopathy, lumbar region; M48.061 Spinal stenosis, lumbar region without neurogenic claudication; M79.18 Myalgia, other site; M80.88XA Other osteoporosis with current pathological fracture, vertebra(e), initial encounter for fracture; I47.2 Ventricular tachycardia; I25.10 Atherosclerotic heart disease of native coronary artery without angina pectoris; I11.0 Hypertensive heart disease with heart failure; I50.32 Chronic diastolic (congestive) heart failure; I48.0 Paroxysmal atrial fibrillation; Z95.0 Presence of cardiac pacemaker; J44.9 Chronic obstructive pulmonary disease, unspecified; M79.7 Fibromyalgia; G47.33 Obstructive sleep apnea (adult) (pediatric); E78.5 Hyperlipidemia, unspecified; I25.2 Old myocardial infarction; K21.9 Gastro-esophageal reflux disease without esophagitis; M19.90 Unspecified osteoarthritis, unspecified site; Z87.01 Personal history of pneumonia (recurrent); M10.9 Gout, unspecified; R33.9 Retention of urine, unspecified; R32 Unspecified urinary incontinence; Z96.0 Presence of urogenital implants; Z85.528 Personal history of other malignant neoplasm of kidney; Z90.5 Acquired absence of kidney; D64.9 Anemia, unspecified; Z99.81 Dependence on supplemental oxygen; R01.1 Cardiac murmur, unspecified; K58.9 Irritable bowel syndrome, unspecified; R42 Dizziness and giddiness; G47.419 Narcolepsy without cataplexy; G25.81 Restless legs syndrome; G20 Parkinson's disease; Z95.1 Presence of aortocoronary bypass graft; Z98.42 Cataract extraction status, left eye; Z98.41 Cataract extraction status, right eye; Z96.1 Presence of intraocular lens; Z83.3 Family history of diabetes mellitus; Z82.49 Family history of ischemic heart disease and other diseases of the circulatory system; Z84.1 Family history of disorders of kidney and ureter; Z79.01 Long term (current) use of anticoagulants; Z79.82 Long term (current) use of aspirin; Z79.891 Long term (current) use of opiate analgesic; Z79.899 Other long term (current) drug therapy; Z88.2 Allergy status to sulfonamides; Z91.018 Allergy to other foods; Z91.09 Other allergy status, other than to drugs and biological substances
CPT/HCPCS: 93005; 64493; 64495; J2250; J3301; J3010; 99152

== ENCOUNTER → 2019-08-02 | Outpatient (CLI) | payer MEDICARE, OTHER ==
[2019-08-02 13:45] VITALS: BP 120/48; PULSE 87; RESP 20
--- NOTE | 2019-08-02 15:02 | P.PN ---
Progress Note - Text Progress Note Date: 08/02/19 This is a follow-up visit for this 69 years old female, with a chronic history of severe low back pain patient diagnosed with lumbar spondylosis with lumbar facet arthropathy and lumbar degenerative disc disease, patient had 2 diagnostic medial branch block lumbar area L3 , L4, L5 (to block the facet at L4-5,L5-S1 ) Patient had positive results after each injection, she was scheduled to have radiofrequency ablation of the medial branch lumbar area , during the procedure , the magnet was placed over the history, as per protocol to do the RFA , and there was a concern that the patient had V. tach absent after the magnet was placed over the pacemaker, patient was evaluated by the cardiology department, and it was determined that the patient had no V. tach, Patient is here today , as a follow-up visit , I explained to the patient that it will be okay to schedule her for radiofrequency ablation of the medial branch lumbar area , as determined previously , we will do the right side first at L3, L4, L5 , patient currently on a blouse similar ELIQUIS , she needs to hold it for 3 days before the procedure
== END ==
LOC: PNWHC3 13:19
PROVIDERS: ATTEND Specialist
DX: G89.29 Other chronic pain (principal); M47.816 Spondylosis without myelopathy or radiculopathy, lumbar region; M51.36 Other intervertebral disc degeneration, lumbar region; M46.96 Unspecified inflammatory spondylopathy, lumbar region; Z79.01 Long term (current) use of anticoagulants
CPT/HCPCS: 99211

== ENCOUNTER → 2019-08-22 | Day surgery (SDC) | payer MEDICARE, OTHER ==
[~2019-08-22] MED LIST changes: +IV FLUID CONTINUATION 1,000 ML IV ONE; +LIDOCAINE 1% 20 ML VIAL (10MG/ML) FOR IV START SQ ONE
[2019-08-22 10:34] VITALS: RESP 16; TEMP 97.5
--- NOTE | 2019-08-22 11:46 | P.PCN ---
Date of Procedure: 08/22/19 Procedure(s) Performed: PREOPERATIVE DIAGNOSIS: 1-Lumbar Spondylosis with Facet Arthropathy without myelopathy. 2- Lumber degenerative disc disease POSTOPERATIVE DIAGNOSIS: 1- Lumbar Spondylosis with Facet Arthropathy without myelopathy. 2- Lumber degenerative disc disease PROCEDURES : Right Radiofrequency thermocoagulation, L3, L4, and L5 medial branch, with fluoroscopic guidance (fluoroscopy images available in the radiology department) ANESTHESIA: local infiltration with Ropivacaine 0.5 % only . EBL: Minimal PROCEDURE INDICATION: The patient with low back pain secondary to lumbar facet arthropathy who had more than 50% relief of her pain with previous diagnostic lumbar medial branch block with bupivacaine. PROCEDURE DESCRIPTION / TECHNIQUE: The patient was seen and identified in the preoperative area. Risks, benefits, complications, including but not limited to risk of infection ,bleeding , allergic reactions to the medications and no complete pain releife , and alternatives were discussed with the patient, the patient agreed to proceed with the procedure and signed the consent. IV was started. Vital signs remained stable throughout the procedure. Patient was taken to the OR and time out was completed. The patient was placed in the prone position on the procedure table. The lumber area was prepped and draped in the usual sterile fashion. . Vital signs were closely monitored during the procedure . Using AP and then oblique fluoroscopy, the ``eye of the Tomás dog corresponding to the connection between the superior and transverse articular processes of right L3, L4, and L5 were identified, marked, and localized with 1% lidocaine. Subsequently, a [id number] radiofrequency cannula with a 10- mm active tip was advanced guided by fluoroscopy to each of the``eyes of the Tomás dog at right L3, L4, and L5. Each site then underwent sensory testing at 50 Hz and 0 to 1 volt and motor testing at 2.5 Hz and 0 to 3 volt with local stimulation, but no radicular symptoms down the legs. Thereafter the right L3, L4 , and L5 sites underwent radiofrequency thermocoagulation at 80 degrees celsius for 90 seconds after injecting 0.5 ml of PF Ropivacaine 1ml, then after the thermocoagulation done , 1 ml of the block solution containing Depo-Medrol 40 mg and 3 ml of Ropivacaine 0.5% was injected at the right L3 , L4 , and L5 , levels after negative aspiration of CSF and blood and with no paresthesias. Cannulas were retracted while injecting lidocaine 1% until the needle is out. At the end of the procedure, the skin was cleansed and bandages were applied. COMPLICATIONS: No acute complications. DISPOSITION / PLANS: The patient was placed in a supine position and transferred to the recovery area in a stable condition for observation and was discharged from the recovery room after meeting discharge criteria. Home discharge instructions given to the patient by the staff. The patient was reexamined prior to discharge. The patient will schedule a follow up in the clinic in 2-4 weeks. note = patient had pacemaker and magnet was placed on the chest wall over the pacemaker, before we started the to testing, and the magnets was removed after we finish the thermocoagulation and there was no changes in the EKG rhythem ,before ,and after we put the magnetic
[2019-08-22 11:54] VITALS: BP 127/68; PULSE 64
--- NOTE | 2019-08-22 14:42 | FL ---
EXAMINATION TYPE: FL guided pain mgmt statistic DATE OF EXAM: 08/22/2019 FLUOROSCOPY Fluoroscopy time of 20 seconds was used during right lumbar radiofrequency ablation. 5 image/s docum ent/s the procedure.
== END ==
LOC: ORPAIN 09:28
PROVIDERS: ATTEND Specialist
DX: M47.816 Spondylosis without myelopathy or radiculopathy, lumbar region (principal); M51.36 Other intervertebral disc degeneration, lumbar region; G47.419 Narcolepsy without cataplexy; E11.9 Type 2 diabetes mellitus without complications; Z79.01 Long term (current) use of anticoagulants; Z95.0 Presence of cardiac pacemaker; Z79.899 Other long term (current) drug therapy
CPT/HCPCS: 64635; 64636; J1030; 99152; 99153

== ENCOUNTER 2019-09-03 02:28 | Observation (INO) | payer MEDICARE, OTHER ==
[2019-09-03] MEDS ORDERED: SODIUM CHLORIDE 0.9% 1,000 ML IV STA (02:35)
--- NOTE | 2019-09-03 03:26 | ED ---
GI Bleed HPI - General Stated complaint: GI Bleed Time Seen by Provider: 09/03/19 02:34 Source: patient, EMS Mode of arrival: EMS Limitations: physical limitation - History of Present Illness Initial comments: Krista is a morbidly obese 69-year-old female who resides at [facility]. Patient is brought to the emergency department tonight after she had 2 episodes of bright red blood per rectum. The patient is diapered and reports that she was told by nursing staff that she had bright red bleeding. Patient reports she has occasional abdominal cramping nothing severe. She has no history of diverticulitis or diverticulosis but has been hospitalized for colitis in the past. She reports her last colonoscopy was 1-2 years ago and she believes it was normal. Patient denies any acute complaints. - Related Data Home Medications Medication Instructions Recorded Confirmed Allopurinol [Zyloprim] 100 mg PO DAILY@0800 02/03/19 08/22/19 Aspirin [[place] Aspirin EC] 81 mg PO DAILY 02/03/19 08/22/19 Carbidopa/Levodopa [Sinemet 25-250 1 tab PO BID@0800,1700 02/03/19 08/22/19 mg] Escitalopram [Lexapro] 20 mg PO DAILY 02/03/19 08/22/19 Isosorbide Mononitrate ER [Imdur] 30 mg PO DAILY 02/03/19 08/22/19 Ferrous Sulfate [Iron] 325 mg PO DAILY 03/01/19 08/22/19 Nitroglycerin Sl Tabs [Nitrostat] 0.4 mg SUBLINGUAL Q5M PRN 03/01/19 08/22/19 Omeprazole [PriLOSEC] 40 mg PO DAILY 03/01/19 08/22/19 Atorvastatin [Lipitor] 40 mg PO DAILY 05/15/19 08/22/19 Bisacodyl [Dulcolax] 10 mg RECTAL DAILY PRN 05/15/19 08/22/19 Na Phos,M-B/Na Phos,Di-Ba [Fleet 133 ml RECTAL DAILY PRN 05/15/19 08/22/19 Adult] Nystatin [Nystop] 1 applic TOPICAL DAILY PRN 05/15/19 08/22/19 Acetaminophen Tab [Tylenol] 1,000 mg PO BID@0800,2100 07/05/19 08/22/19 [place] Baby Powder 1 applic TOPICAL BID 07/05/19 08/22/19 Carbidopa/Levodopa [Carbidopa-Levo 3 - 4 tab PO DAILY PRN 07/05/19 08/22/19 25-250 mg Odt] Docusate [Colace] 100 mg PO DAILY@0800 07/05/19 08/22/19 Furosemide [Lasix] 20 mg PO DAILY 07/05/19 08/22/19 Ipratropium-Albuterol Nebulize 3 ml INHALATION RT-TID 07/05/19 08/22/19 [Duoneb 0.5 mg-3 mg/3 ml Soln] Magnesium Hydroxide [Milk of 2,400 mg PO DAILY PRN 07/05/19 08/22/19 Magnesia] Metoprolol Tartrate [Lopressor] 25 mg PO TID 07/05/19 08/22/19 Modafinil [Provigil] 1 tab PO DIRECTED PRN 08/02/19 08/22/19 Apixaban [Eliquis] 5 mg PO BID 08/08/19 08/22/19 Gabapentin [Neurontin] 100 mg PO TID 08/08/19 08/22/19 Menthol [Biofreeze] 1 applic TOPICAL DAILY PRN 08/08/19 08/22/19 rOPINIRole HCL [Requip] 2 mg PO TID 08/08/19 08/22/19 traZODone HCL 50 mg PO DAILY 08/08/19 08/22/19 Previous Rx's Medication Instructions Recorded HYDROcodone/APAP 10-325MG [[place] 1 tab PO Q6HR PRN #12 tab 07/06/19 10-325] Lidocaine 5% Patch [Lidoderm 5% 1 patch TOPICAL DAILY #2 patch 07/06/19 Patch] Allergies Allergy/AdvReac Type Severity Reaction Status Date / Time adhesive tape Allergy skin peels Verified 09/03/19 02:38 off Fish Containing Products Allergy Nausea Verified 09/03/19 02:38 [Fish] Sulfa (Sulfonamide Allergy Unknown Verified 09/03/19 02:38 Antibiotics) Review of Systems ROS Statement: Those systems with pertinent positive or pertinent negative responses have been documented in the HPI. ROS Other: All systems not noted in ROS Statement are negative. Past Medical History Past Medical History: Blood Disorder, Osteoarthritis (OA), Renal Disease Additional Past Medical History / Comment(s): Chronic low back pain which radiates down bilateral legs, lumbar disc disease, spondylosis, lumbar compression fracture, myofascial pain syndrome,migraines, gout bilateral feet, osteoporosis, frequent falls, chronic urine retention/incontinence/has bladder stimulator, 1972 R renal cancer with nephrectomy, anemia, cardiac murmur, home oxygen at 2-3L/NC ATC, KOFFI but device is broken, vertigo, narcolepsy, IBS, pt currently at [facility] for rehab pt currently has 2 impacted teeth taking antibiotics to have removed thursday Last Myocardial Infarction Date:: 2004 History of Any Multi-Drug Resistant Organisms: None Reported Past Surgical History: Appendectomy, Coronary Bypass/CABG, Heart Catheterization, Orthopedic Surgery, Pacemaker Additional Past Surgical History / Comment(s): Rt nephrectomy, lumber epidural injections-last one 03/07/19, bladder stimulator, fabricio carpal tunnel releases, surgery on left hand, 1 vessel CABG 2004, fabricio cataracts with lens implants, colonoscopy. Past Anesthesia/Blood Transfusion Reactions: Previous Problems w/ Anesthesia Additional Past Anesthesia/Blood Transfusion Reaction / Comment(s): Pt has received blood in past without reaction. Type of Cardiac Device: Permanent Pacemaker Device Placement Date:: 2006 Past Psychological History: Anxiety Smoking Status: Never smoker Past Alcohol Use History: None Reported Past Drug Use History: None Reported - Past Family History Mother Family Medical History: Diabetes Mellitus, Hypertension, Renal Disease Father Additional Family Medical History / Comment(s): Father comitted suicide. Family Family Medical History: Coronary Artery Disease (CAD) General Exam - General Exam Comments Initial Comments: Physical Exam GENERAL: Patient is well-developed and well-nourished. Patient is nontoxic and well- hydrated and is in no distress. HENT: Normocephalic, Atraumatic. EYES: PERRL, EOMI PULMONARY: Unlabored respirations. No audible rales rhonchi or wheezing was noted. CARDIOVASCULAR: There is a regular rate and rhythm without any murmurs gallops or rubs. AICD in place left chest ABDOMEN: Soft and nontender with normal bowel sounds. SKIN: Skin is clear with no lesions or rashes and otherwise unremarkable. Doing bruise to the right forehead : Deferred NEUROLOGIC: Patient is alert and oriented x3. Moving all extremities spontaneously MUSCULOSKELETAL: Normal extremities with adequate strength and full range of motion. No lower extremity swelling or edema. No calf tenderness. PSYCHIATRIC: Normal psychiatric evaluation. Limitations: physical limitation Course Vital Signs 09/03/19 09/03/19 02:35 03:26 Temperature 98.1 F Pulse Rate 76 60 Respiratory 18 20 Rate Blood Pressure 110/51 87/46 O2 Sat by Pulse 97 97 Oximetry Medical Decision Making - Medical Decision Making Patient was seen and evaluated history was obtained from the patient history and physical exam are relatively unremarkable Patient had labs drawn yesterday, repeat labs were drawn today, patient does have a decreasing hemoglobin. She's not had any bowel movements in the emergency department however we will plan to admit her for further evaluation. Given that the patient is on L liquids and having bright red GI bleeding I do recommend close monitoring and further evaluation by gastroenterology. Patient is agreeable. Patient will be admitted to Dr. Colon - Lab Data Result diagrams: 09/03/19 03:20 09/03/19 03:20 Lab Results 09/03/19 09/03/19 09/03/19 Range/Units 03:20 03:20 03:20 WBC 4.9 (3.8-10.6) k/uL RBC 3.12 L (3.80-5.40) m/uL Hgb 10.3 L (11.4-16.0) gm/dL Hct 33.6 L (34.0-46.0) % MCV 107.7 H (80.0-100.0) fL MCH 33.2 (25.0-35.0) pg MCHC 30.8 L (31.0-37.0) g/dL RDW 16.9 H (11.5-15.5) % Plt Count 65 L (150-450) k/uL Neutrophils % 64 % Lymphocytes % 21 % Monocytes % 7 % Eosinophils % 4 % Basophils % 1 % Neutrophils # 3.2 (1.3-7.7) k/uL Lymphocytes # 1.0 (1.0-4.8) k/uL Monocytes # 0.3 (0-1.0) k/uL Eosinophils # 0.2 (0-0.7) k/uL Basophils # 0.0 (0-0.2) k/uL Hypochromasia Slight Anisocytosis Slight Macrocytosis Marked A APTT (22.0-30.0) sec Sodium 141 (137-145) mmol/L Potassium 5.1 (3.5-5.1) mmol/L Chloride 107 (98-107) mmol/L Carbon Dioxide 31 H (22-30) mmol/L Anion Gap 3 mmol/L BUN 41 H (7-17) mg/dL Creatinine 0.92 (0.52-1.04) mg/dL Est GFR (CKD-EPI)AfAm 73 (>60 ml/min/1.73 sqM) Est GFR (CKD-EPI)NonAf 63 (>60 ml/min/1.73 sqM) Glucose 77 (74-99) mg/dL Plasma Lactic Acid Zaid 0.8 (0.7-2.0) mmol/L Calcium 8.6 (8.4-10.2) mg/dL Total Bilirubin 0.5 (0.2-1.3) mg/dL AST 45 H (14-36) U/L ALT 26 (9-52) U/L Alkaline Phosphatase 225 H (38-126) U/L Troponin I (0.000-0.034) ng/mL Total Protein 6.4 (6.3-8.2) g/dL Albumin 3.0 L (3.5-5.0) g/dL 09/03/19 09/03/19 Range/Units 03:20 03:20 WBC (3.8-10.6) k/uL RBC (3.80-5.40) m/uL Hgb (11.4-16.0) gm/dL Hct (34.0-46.0) % MCV (80.0-100.0) fL MCH (25.0-35.0) pg MCHC (31.0-37.0) g/dL RDW (11.5-15.5) % Plt Count (150-450) k/uL Neutrophils % % Lymphocytes % % Monocytes % % Eosinophils % % Basophils % % Neutrophils # (1.3-7.7) k/uL Lymphocytes # (1.0-4.8) k/uL Monocytes # (0-1.0) k/uL Eosinophils # (0-0.7) k/uL Basophils # (0-0.2) k/uL Hypochromasia Anisocytosis Macrocytosis APTT 25.0 (22.0-30.0) sec Sodium (137-145) mmol/L Potassium (3.5-5.1) mmol/L Chloride (98-107) mmol/L Carbon Dioxide (22-30) mmol/L Anion Gap mmol/L BUN (7-17) mg/dL Creatinine (0.52-1.04) mg/dL Est GFR (CKD-EPI)AfAm (>60 ml/min/1.73 sqM) Est GFR (CKD-EPI)NonAf (>60 ml/min/1.73 sqM) Glucose (74-99) mg/dL Plasma Lactic Acid Zaid (0.7-2.0) mmol/L Calcium (8.4-10.2) mg/dL Total Bilirubin (0.2-1.3) mg/dL AST (14-36) U/L ALT (9-52) U/L Alkaline Phosphatase (38-126) U/L Troponin I <0.012 (0.000-0.034) ng/mL Total Protein (6.3-8.2) g/dL Albumin (3.5-5.0) g/dL Disposition Clinical Impression: Bright red blood per rectum, Anemia Disposition: ADMITTED IP TO THIS HOSP Condition: Stable Is patient prescribed a controlled substance at d/c from ED?: No Referrals: Esteban Harman MD [Primary Care Provider] - 1-2 days
[2019-09-03 04:33] LABS: Anisocytosis Slight; Basophils % (A) 1 %; Eosinophils # (A) 0.2 k/uL (0-0.7); Eosinophils % (A) 4 %; HCT 33.6 % (34.0-46.0); HGB 10.3 gm/dL (11.4-16.0); Hypochromasia Slight; Lymphocytes % (A) 21 %; MCH 33.2 pg (25.0-35.0); MCHC 30.8 g/dL (31.0-37.0); MCV 107.7 fL (80.0-100.0); Macrocytosis Marked; Mean Platelet Volume 7.9; Monocytes # (A) 0.3 k/uL (0-1.0); Monocytes % (A) 7 %; Neutrophils # (A) 3.2 k/uL (1.3-7.7); Neutrophils % (A) 64 %; RBC 3.12 m/uL (3.80-5.40); RDW 16.9 % (11.5-15.5); WBC 4.9 k/uL (3.8-10.6)
[2019-09-03 04:41] LABS: Calcium 8.6 mg/dL (8.4-10.2); Potassium 5.1 mmol/L (3.5-5.1); Total Bilirubin 0.5 mg/dL (0.2-1.3); Total Protein 6.4 g/dL (6.3-8.2)
[2019-09-03 04:42] LABS: Platelet Count 65 k/uL (150-450)
[2019-09-03] MEDS ORDERED: ONDANSETRON 4 MG/2 ML VIAL IVP PRN (05:12)
[2019-09-03] MEDS ORDERED: NALOXONE 0.4 MG/ML 1 ML VIAL IV PRN (05:12)
[2019-09-03] MEDS ORDERED: SODIUM CHLORIDE 0.9% 500 ML 500 ML IV ONE (05:48)
[2019-09-03] MEDS ORDERED: MORPHINE SULFATE 4 MG/ML SYRINGE IVP STA (05:48)
[2019-09-03 07:09] LABS: Glucose,Whole Blood 83 mg/dL (75-99)
[2019-09-03] MEDS ORDERED: ALLOPURINOL 100 MG TAB PO SCH (08:00)
[2019-09-03] MEDS ORDERED: BISACODYL 10 MG SUPP RECTAL PRN (10:44)
[2019-09-03] MEDS ORDERED: MODAFINIL 100 MG TAB PO PRN (10:44)
[2019-09-03] MEDS ORDERED: NON FORMULARY DRUG (Menthol [Biofreeze] 1 APPLIC) TOPICAL PRN (10:44)
[2019-09-03] MEDS ORDERED: NITROGLYCERIN SL TABS 0.4 MG TAB SUBLINGUAL PRN (10:44)
[2019-09-03] MEDS ORDERED: NYSTATIN 100,000 UNIT/GM POWD 15 GM TOPICAL PRN (10:44)
[2019-09-03] MEDS: HYDROcodone/APAP 10-325MG 1 EACH TAB PO PRN ×3 (10:58→23:33)
[2019-09-03] MEDS: ESCITALOPRAM 20 MG TAB PO SCH (12:24)
[2019-09-03] MEDS: GABAPENTIN 100 MG CAP PO SCH ×3 (12:25→21:22)
[2019-09-03] MEDS: ISOSORBIDE MONONITRATE ER 30 MG TAB.ER.24H PO SCH (12:26)
[2019-09-03] MEDS: METOPROLOL TARTRATE 25 MG TAB PO SCH ×3 (12:26→21:23)
[2019-09-03] MEDS: ALLOPURINOL 100 MG TAB PO SCH (12:26)
[2019-09-03] MEDS: IPRATROPIUM-ALBUTEROL 3 ML NEB INHALATION SCH ×3 (12:38→19:20)
--- NOTE | 2019-09-03 14:21 | P.HPIM ---
History of Present Illness H&P Date: 09/03/19 Chief Complaint: Bright red blood per rectum History of presenting complaint: This is a 69-year-old patient of Dr. Weiss whose chronic stable medical conditions include restless leg syndrome, GERD, renal cell carcinoma with right nephrectomy, fibromyalgia, chronic hypercapnic respiratory failure, permanent pacemaker, coronary artery disease with bypass, chronic bladder dysfunction, chronic narcolepsy, obstructive sleep apnea does not use CPAP, COPD, chronic L1 compression fracture, CHF from diastolic dysfunction EF 50-55%. Patient has been living at [facility] Since May 03. Patient has chronic pain. Does follow with Dr. Rosales from pain services. Patient presented with episodes of bright red blood per rectum. Had 2 episodes yesterday evening and a t least 1 more episode in the hospital here. Slight abdominal discomfort. No fever no chills. No diarrhea. GI was consulted. Admitted for the same. Review of systems: GEN.: Tired EYES: None HEENT: None NECK: None RESPIRATORY: Baseline some shortness of breath CARDIOVASCULAR: None GASTROINTESTINAL: As above GENITOURINARY: Some incontinence MUSCULOSKELETAL: Joint pains LYMPHATICS: None HEMATOLOGICAL: None PSYCHIATRY: Anxiety NEUROLOGICAL: None Social history: Patient is a . Lives at [facility] since May 03. No smoking. No alcohol Physical examination: VITAL SIGNS: 98.1, 76, 18, 110/51, 97% on 2 L GENERAL: BMI 45.7, laying in bed, but anxious. EYES: Pupils equal. Conjunctiva normal. HEENT: External appearance of nose and ears normal, oral cavity grossly normal. NECK: JVD unable to assess; masses not palpable. HEART: First and second heart sounds are normal; no edema. LUNGS: Respiratory rate normal; distant breath sounds. ABDOMEN: Soft, nontender, liver spleen not palpable, no masses palpable. PSYCH: [Alert and oriented x3; mood and affect bit anxious NEUROLOGICAL: Cranial nerves grossly intact; no facial asymmetry, limited range of motion both lower extremity. LYMPHATICS: No lymph nodes palpable in the axilla and neck INVESTIGATIONS, reviewed in the clinical context: White count 4.9 hemoglobin: 10.3 platelets 65 potassium 5.1 BUN 41 creatinine 0.9 to Assessment: -Acute bright red blood per rectum at least 3 episodes. -Chronic congestive heart failure from diastolic dysfunction EF 50-55% -Chronic L1 compression fracture -COPD in a nonsmoker -Obstructive sleep apnea does not use CPAP machine -Chronic narcolepsy -Chronic bladder dysfunction with the stimulator urine-coronary artery disease with a history of bypass -Permanent pacemaker -Chronic hypercapnic respiratory failure on oxygen -Chronic fibromyalgia -Renal cell carcinoma with right nephrectomy -GERD line --restless leg syndrome Plan: Patient is on liquids, aspirin and eliquis stopped. Other home medications resumed. H&H will be followed. Gastroenterology been consulted with a view to endoscopy. Care was discussed with the patient. Past Medical History Past Medical History: Blood Disorder, Osteoarthritis (OA), Renal Disease Additional Past Medical History / Comment(s): Chronic low back pain which rad iates down bilateral legs, lumbar disc disease, spondylosis, lumbar compression fracture, myofascial pain syndrome,migraines, gout bilateral feet, osteoporosis, frequent falls, chronic urine retention/incontinence/has bladder stimulator, 1972 R renal cancer with nephrectomy, anemia, cardiac murmur, home oxygen at 2-3L/NC ATC, KOFFI but device is broken, vertigo, narcolepsy, IBS, pt currently at [facility] for rehab pt currently has 2 impacted teeth taking antibiotics to have removed thursday Last Myocardial Infarction Date:: 2004 History of Any Multi-Drug Resistant Organisms: None Reported Past Surgical History: Appendectomy, Coronary Bypass/CABG, Heart Catheterization, Orthopedic Surgery, Pacemaker Additional Past Surgical History / Comment(s): Rt nephrectomy, lumber epidural injections-last one 03/07/19, bladder stimulator, fabricio carpal tunnel releases, surgery on left hand, 1 vessel CABG 2004, fabricio cataracts with lens implants, colonoscopy. Past Anesthesia/Blood Transfusion Reactions: Previous Problems w/ Anesthesia Additional Past Anesthesia/Blood Transfusion Reaction / Comment(s): Pt has received blood in past without reaction. Type of Cardiac Device: Permanent Pacemaker Device Placement Date:: 2006 Past Psychological History: Anxiety Additional Psychological History / Comment(s): She no longer drives. She ambulates with a walker. 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 She has home oxygen and a nebulizer. Has used [facility] and help form [employer]- Patient currently resides at [facility] since 05/03/19 since recent spouse Smoking Status: Never smoker Past Alcohol Use History: None Reported Past Drug Use History: None Reported - Past Family History Mother Family Medical History: Diabetes Mellitus, Hypertension, Renal Disease Father Additional Family Medical History / Comment(s): Father comitted suicide. Family Family Medical History: Coronary Artery Disease (CAD) Medications and Allergies Home Medications Medication Instructions Recorded Confirmed Type Allopurinol [Zyloprim] 100 mg PO DAILY@0800 02/03/19 09/03/19 History Aspirin [[place] Aspirin EC] 81 mg PO DAILY@1700 02/03/19 09/03/19 History Carbidopa/Levodopa [Sinemet 25-250 1 tab PO BID@0800,1700 02/03/19 09/03/19 History mg] Escitalopram [Lexapro] 20 mg PO DAILY@0800 02/03/19 09/03/19 History Isosorbide Mononitrate ER [Imdur] 30 mg PO DAILY@0800 02/03/19 09/03/19 History Ferrous Sulfate [Iron] 325 mg PO DAILY@1700 03/01/19 09/03/19 History Nitroglycerin Sl Tabs [Nitrostat] 0.4 mg SUBLINGUAL Q5M PRN 03/01/19 09/03/19 History Omeprazole [PriLOSEC] 40 mg PO DAILY@0600 03/01/19 09/03/19 History Atorvastatin [Lipitor] 40 mg PO DAILY@169905/15/19 09/03/19 History Bisacodyl [Dulcolax] 10 mg RECTAL DAILY PRN 05/15/19 09/03/19 History Na Phos,M-B/Na Phos,Di-Ba [Fleet 133 ml RECTAL DAILY PRN 05/15/19 09/03/19 History Adult] Nystatin [Nystop] 1 applic TOPICAL DAILY PRN 05/15/19 09/03/19 History Acetaminophen Tab [Tylenol] 1,000 mg PO BID@0800,2100 07/05/19 09/03/19 History Docusate [Colace] 100 mg PO DAILY@0800 07/05/19 09/03/19 History Furosemide [Lasix] 20 mg PO DAILY@0800 07/05/19 09/03/19 History Ipratropium-Albuterol Nebulize 3 ml INHALATION RT-TID 07/05/19 09/03/19 History [Duoneb 0.5 mg-3 mg/3 ml Soln] Magnesium Hydroxide [Milk of 2,400 mg PO DAILY PRN 07/05/19 09/03/19 History Magnesia] Metoprolol Tartrate [Lopressor] 25 mg PO TID@0600,1400,209907/05/19 09/03/19 History HYDROcodone/APAP 10-325MG [[place] 1 tab PO Q6HR PRN #12 tab 07/06/19 09/03/19 Rx 10-325] Modafinil [Provigil] 100 mg PO DAILY PRN 08/02/19 09/03/19 History Apixaban [Eliquis] 5 mg PO BID@0800,1700 08/08/19 09/03/19 History Gabapentin [Neurontin] 100 mg PO TID@0600,1400,209908/08/19 09/03/19 History Menthol [Biofreeze] 1 applic TOPICAL DAILY PRN 08/08/19 09/03/19 History rOPINIRole HCL [Requip] 2 mg PO TID@0600,1400,209908/08/19 09/03/19 History traZODone HCL 50 mg PO HS@209908/08/19 09/03/19 History Allergies Allergy/AdvReac Type Severity Reaction Status Date / Time adhesive tape Allergy skin peels Verified 09/03/19 07:49 off Sulfa (Sulfonamide Allergy Unknown Verified 09/03/19 07:49 Antibiotics) Fish Containing Products AdvReac Nausea Verified 09/03/19 07:50 [Fish] Physical Exam Vitals: Vital Signs Temp Pulse Pulse Resp BP BP Pulse Ox 09/03/19 13:00 72 09/03/19 12:38 68 09/03/19 12:02 98.1 F 66 19 130/74 95 09/03/19 07:00 98.5 F 74 17 105/63 98 09/03/19 06:07 63 20 117/66 96 09/03/19 05:46 98.0 F 64 24 127/58 97 09/03/19 04:15 72 18 94/58 97 09/03/19 03:26 60 20 87/46 97 09/03/19 02:35 98.1 F 76 18 110/51 97 Intake and Output 09/02/19 09/03/19 09/03/19 22:59 06:59 14:59 Other: Weight 106.141 kg Results CBC & Chem 7: 09/03/19 03:20 09/03/19 03:20 Labs: Abnormal Lab Results - Last 24 Hours (Table) 09/03/19 09/03/19 Range/Units 03:20 03:20 RBC 3.12 L (3.80-5.40) m/uL Hgb 10.3 L (11.4-16.0) gm/dL Hct 33.6 L (34.0-46.0) % MCV 107.7 H (80.0-100.0) fL MCHC 30.8 L (31.0-37.0) g/dL RDW 16.9 H (11.5-15.5) % Plt Count 65 L (150-450) k/uL Macrocytosis Marked A Carbon Dioxide 31 H (22-30) mmol/L BUN 41 H (7-17) mg/dL AST 45 H (14-36) U/L Alkaline Phosphatase 225 H (38-126) U/L Albumin 3.0 L (3.5-5.0) g/dL Thrombosis Risk Factor Assmnt - Choose All That Apply Each Risk Factor Represents 2 Points: Age 61-74 years Thrombosis Risk Factor Assessment Total Risk Factor Score: 2 Thrombosis Risk Factor Assessment Level: Low Risk
[2019-09-03] MEDS: CARBIDOPA-LEVODOPA 25-250 MG 1 EACH TAB PO SCH (16:37)
[2019-09-03] MEDS: ATORVASTATIN 40 MG TAB PO SCH (16:37)
[2019-09-03] MEDS: SODIUM CHLORIDE 0.9% 1,000 ML IV SCH ×2 (16:49→22:14)
[2019-09-03] MEDS: ACETAMINOPHEN TAB 500 MG TAB PO SCH (21:21)
[2019-09-03] MEDS: traZODone HCL 50 MG TAB PO SCH (21:23)
--- NOTE | 2019-09-03 21:25 | P.CONS ---
History of Present Illness - Reason for Consult Consult date: 09/03/19 Blood per rectum Requesting physician: Nasim Colon - Chief Complaint Blood per rectum - History of Present Illness 69-year-old female with medical history significant for restless leg syndrome, GERD, renal cell carcinoma status post right nephrectomy, fibromyalgia, coronary artery disease status post coronary artery bypass graft, narcolepsy, KOFFI, COPD, CHF with diastolic dysfunction and chronic bladder dysfunction presented to the hospital due to concerns over rectal bleeding. The patient reportedly had 2 episodes of painless rectal bleeding prior to presentation to the hospital. She denies any further blood per rectum today. She denies any associated abdominal pain. She denies any history of rectal bleeding. She believes her last colonoscopy was within the past 1-2 years and normal per her recollection. She states bowel movements are normally 1-2 times per day. She does report having hemorrhoidal bleeding in the past treated with [id number] Preparation H. Hemoglobin on presentation was 10.3 stable from previous admissions when hemoglobin was approximately in the 10 range. Patient has been seen by the hematology service in the past for a macrocytic anemia as well as thrombocytopenia. She is unsure of what her diagnosis is in regards to their evaluation. Review of Systems REVIEW OF SYSTEMS: CONSTITUTIONAL: Denies any fevers, chills, weight change or fatigue. CARDIOVASCULAR: Denies any chest pain, palpitations high or low blood pressures RESPIRATORY: Denies any shortness of breath, hemoptysis or cough. GENITOURINARY: No dysuria or hematuria. MUSCULOSKELETAL: No weakness reported. SKIN: Denies any new rashes or lesions, jaundice or pallor. PSYCHIATRIC: Denies any depression or anxiety. NEUROLOGY: Denies headache, denies any new focal deficits. EARS/NOSE/THROAT: No recent hearing change, congestion, nasal discharge or sore throat. EYES: No pain in eyes, discharge or change in vision. GASTROINTESTINAL: As per HPI. Past Medical History Past Medical History: Blood Disorder, Osteoarthritis (OA), Renal Disease Additional Past Medical History / Comment(s): Chronic low back pain which radiates down bilateral legs, lumbar disc disease, spondylosis, lumbar compression fracture, myofascial pain syndrome,migraines, gout bilateral feet, osteoporosis, frequent falls, chronic urine retention/incontinence/has bladder stimulator, 1972 R renal cancer with nephrectomy, anemia, cardiac murmur, home oxygen at 2-3L/NC ATC, KOFFI but device is broken, vertigo, narcolepsy, IBS, pt currently at [facility] for rehab pt currently has 2 impacted teeth taking antibiotics to have removed thursday Last Myocardial Infarction Date:: 2004 History of Any Multi-Drug Resistant Organisms: None Reported Past Surgical History: Appendectomy, Coronary Bypass/CABG, Heart Catheterization, Orthopedic Surgery, Pacemaker Additional Past Surgical History / Comment(s): Rt nephrectomy, lumber epidural injections-last one 03/07/19, bladder stimulator, fabricio carpal tunnel releases, surgery on left hand, 1 vessel CABG 2004, fabricio cataracts with lens implants, colonoscopy. Past Anesthesia/Blood Transfusion Reactions: Previous Problems w/ Anesthesia Additional Past Anesthesia/Blood Transfusion Reaction / Comm: Pt has received blood in past without reaction. Type of Cardiac Device: Permanent Pacemaker Device Placement Date:: 2006 Past Psychological History: Anxiety Additional Psychological History / Comment(s): She no longer drives. She ambulates with a walker. 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 She has home oxygen and a nebulizer. Has used VNA and help form [employer]- Patient currently resides at [facility] since 05/03/19 since recent spouse Smoking Status: Never smoker Past Alcohol Use History: None Reported Past Drug Use History: None Reported - Past Family History Mother Family Medical History: Diabetes Mellitus, Hypertension, Renal Disease Father Additional Family Medical History / Comment(s): Father comitted suicide. Family Family Medical History: Coronary Artery Disease (CAD) Medications and Allergies Home Medications Medication Instructions Recorded Confirmed Type Allopurinol [Zyloprim] 100 mg PO DAILY@0800 02/03/19 09/03/19 History Aspirin [Loíza Aspirin EC] 81 mg PO DAILY@169902/03/19 09/03/19 History Carbidopa/Levodopa [Sinemet 25-250 1 tab PO BID@0800,1700 02/03/19 09/03/19 History mg] Escitalopram [Lexapro] 20 mg PO DAILY@0800 02/03/19 09/03/19 History Isosorbide Mononitrate ER [Imdur] 30 mg PO DAILY@0800 02/03/19 09/03/19 History Ferrous Sulfate [Iron] 325 mg PO DAILY@1700 03/01/19 09/03/19 History Nitroglycerin Sl Tabs [Nitrostat] 0.4 mg SUBLINGUAL Q5M PRN 03/01/19 09/03/19 History Omeprazole [PriLOSEC] 40 mg PO DAILY@0600 03/01/19 09/03/19 History Atorvastatin [Lipitor] 40 mg PO DAILY@1700 05/15/19 09/03/19 History Bisacodyl [Dulcolax] 10 mg RECTAL DAILY PRN 05/15/19 09/03/19 History Na Phos,M-B/Na Phos,Di-Ba [Fleet 133 ml RECTAL DAILY PRN 05/15/19 09/03/19 History Adult] Nystatin [Nystop] 1 applic TOPICAL DAILY PRN 05/15/19 09/03/19 History Acetaminophen Tab [Tylenol] 1,000 mg PO BID@0800,2100 07/05/19 09/03/19 History Docusate [Colace] 100 mg PO DAILY@0800 07/05/19 09/03/19 History Furosemide [Lasix] 20 mg PO DAILY@0800 07/05/19 09/03/19 History Ipratropium-Albuterol Nebulize 3 ml INHALATION RT-TID 07/05/19 09/03/19 History [Duoneb 0.5 mg-3 mg/3 ml Soln] Magnesium Hydroxide [Milk of 2,400 mg PO DAILY PRN 07/05/19 09/03/19 History Magnesia] Metoprolol Tartrate [Lopressor] 25 mg PO TID@0600,1400,2100 07/05/19 09/03/19 History HYDROcodone/APAP 10-325MG [[place] 1 tab PO Q6HR PRN #12 tab 07/06/19 09/03/19 Rx 10-325] Modafinil [Provigil] 100 mg PO DAILY PRN 08/02/19 09/03/19 History Apixaban [Eliquis] 5 mg PO BID@0800,1700 08/08/19 09/03/19 History Gabapentin [Neurontin] 100 mg PO TID@0600,1400,2100 08/08/19 09/03/19 History Menthol [Biofreeze] 1 applic TOPICAL DAILY PRN 08/08/19 09/03/19 History rOPINIRole HCL [Requip] 2 mg PO TID@0600,1400,2100 08/08/19 09/03/19 History traZODone HCL 50 mg PO HS@2100 08/08/19 09/03/19 History Allergies Allergy/AdvReac Type Severity Reaction Status Date / Time adhesive tape Allergy skin peels Verified 09/03/19 07:49 off Sulfa (Sulfonamide Allergy Unknown Verified 09/03/19 07:49 Antibiotics) Fish Containing Products AdvReac Nausea Verified 09/03/19 07:50 [Fish] Physical Exam Vitals: Vital Signs Temp Pulse Pulse Resp BP BP Pulse Ox 09/03/19 12:38 68 09/03/19 12:02 98.1 F 66 19 130/74 95 09/03/19 07:00 98.5 F 74 17 105/63 98 09/03/19 06:07 63 20 117/66 96 09/03/19 05:46 98.0 F 64 24 127/58 97 09/03/19 04:15 72 18 94/58 97 09/03/19 03:26 60 20 87/46 97 09/03/19 02:35 98.1 F 76 18 110/51 97 Intake and Output 09/02/19 09/03/19 09/03/19 22:59 06:59 14:59 Other: Weight 106.141 kg On physical examination, patient appears comfortable in no apparent distress. HEAD: Normocephalic, atraumatic. EYES: No scleral icterus. No conjunctival injection. MOUTH: No lesions, tongue midline. NECK: Trachea midline, no gross abnormalities. CHEST: Clear to auscultation with no wheezing or rhonchi appreciated. HEART: Regular rate and rhythm. ABDOMEN: Soft, obese. Bowel sounds are positive. No organomegaly. No guarding or rigidity. EXTREMITIES: No pedal edema. SKIN: No rashes, no jaundice. NEUROLOGIC: Alert and oriented x3. No focal deficits. Results CBC & Chem 7: 09/03/19 03:20 09/03/19 03:20 Labs: Abnormal Lab Results - Last 24 Hours (Table) 09/03/19 09/03/19 Range/Units 03:20 03:20 RBC 3.12 L (3.80-5.40) m/uL Hgb 10.3 L (11.4-16.0) gm/dL Hct 33.6 L (34.0-46.0) % MCV 107.7 H (80.0-100.0) fL MCHC 30.8 L (31.0-37.0) g/dL RDW 16.9 H (11.5-15.5) % Plt Count 65 L (150-450) k/uL Macrocytosis Marked A Carbon Dioxide 31 H (22-30) mmol/L BUN 41 H (7-17) mg/dL AST 45 H (14-36) U/L Alkaline Phosphatase 225 H (38-126) U/L Albumin 3.0 L (3.5-5.0) g/dL Assessment and Plan (1) Bright red blood per rectum Narrative/Plan: 69-year-old female presenting with complaints of bright red blood per rectum. Patient has multiple comorbidities and reports problems with hemorrhoidal bleeding in the past. She believes her last colonoscopy was within the past 1-2 years at [facility] and normal. The patient has a known history of macrocytic anemia and thrombocytopenia evaluated earlier in the year by the hematology service with findings of a paraproteinemia. However on questioning the patient is unclear of what her diagnosis is. Hemoglobin appears to be at baseline with hemoglobin in the 10 range on discharge earlier in the year and currently 10.3. Likely etiology is a perirectal bleeding, with differential also including diverticulosis, AVM, or other etiology. Current Visit: Yes Status: Acute Code(s): K62.5 - HEMORRHAGE OF ANUS AND RECTUM SNOMED Code(s): 18313555 (2) Bicytopenia Narrative/Plan: Known history of macrocytic anemia and thrombocytopenia evaluated earlier in the year by the hematology service with findings of a paraproteinemia. However on questioning the patient is unsure of her diagnosis or follow-up with the hematology service. Current Visit: Yes Status: Acute Code(s): D75.89 - OTHER SPECIFIED DISEASES OF BLOOD AND BLOOD-FORMING ORGANS SNOMED Code(s): 74655995 Plan: Supportive care Continue to monitor hemoglobin and transfuse as needed Perirectal care with Anusol daily Continue to monitor stool output No plans for endoscopy at this time given the patient's known history of anemia and stable hemoglobin, as well as see patient's reports of colonoscopic evaluation in the past one to 2 years at [facility], however if the patient continues to have bleeding or fall in hemoglobin we'll reevaluate at that time Thank you for allowing us to participate in the care of the patient we will continue to follow
[2019-09-04] MEDS: SODIUM CHLORIDE 0.9% 1,000 ML IV SCH ×2 (02:36→11:44)
[2019-09-04] MEDS: METOPROLOL TARTRATE 25 MG TAB PO SCH ×3 (05:44→20:16)
[2019-09-04] MEDS: GABAPENTIN 100 MG CAP PO SCH ×3 (05:44→20:16)
[2019-09-04] MEDS: ACETAMINOPHEN TAB 500 MG TAB PO SCH ×2 (07:25→20:17)
[2019-09-04] MEDS: ISOSORBIDE MONONITRATE ER 30 MG TAB.ER.24H PO SCH (07:25)
[2019-09-04] MEDS: ESCITALOPRAM 20 MG TAB PO SCH (07:26)
[2019-09-04] MEDS: ALLOPURINOL 100 MG TAB PO SCH (07:26)
[2019-09-04] MEDS: HYDROCORTISONE SUPPOSITORY 25 MG SUPP RECTAL SCH (07:27)
[2019-09-04] MEDS: CARBIDOPA-LEVODOPA 25-250 MG 1 EACH TAB PO SCH ×2 (07:27→17:20)
[2019-09-04] MEDS: IPRATROPIUM-ALBUTEROL 3 ML NEB INHALATION SCH ×3 (09:16→19:42)
[2019-09-04] MEDS: HYDROcodone/APAP 10-325MG 1 EACH TAB PO PRN ×2 (10:24→17:20)
--- NOTE | 2019-09-04 15:46 | P.PN ---
Progress Note - Text Progress Note Date: 09/04/19 Chief Complaint: Bright red blood per rectum Interval history: This is a 69-year-old patient of Dr. Weiss whose chronic stable medical conditions include restless leg syndrome, GERD, renal cell carcinoma with right nephrectomy, fibromyalgia, chronic hypercapnic respiratory failure, permanent pacemaker, coronary artery disease with bypass, chronic bladder dysfunction, chronic narcolepsy, obstructive sleep apnea does not use CPAP, COPD, chronic L1 compression fracture, CHF from diastolic dysfunction EF 50-55%. Patient has been living at [facility] Since May 03. Patient has chronic pain. Does follow with Dr. Rosales from pain services. Patient presented with episodes of bright red blood per rectum. Had 2 episodes yesterday evening and at least 1 more episode in the hospital here. Slight abdominal discomfort. No fever no chills. No diarrhea. GI was consulted. Admitted for the same. Seen by Dr. Lal from GI. [place] to be possible perirectal/hemorrhoidal bleeding. Plan is not for any endoscopy until further bleeding. Today-no further GI bleeding. Has had brown stool. 2 bowel movements today. No abdominal pain. Patient is keen to return to the [facility]. Did tolerate her diet. Review of systems: Was done for constitutional, cardiovascular, GI, pulmonary. relevant finding as above Active Medications Acetaminophen (Tylenol Tab) 1,000 mg PO BID@0800,2100 [facility] Last Admin: 09/04/19 07:25 Dose: 1,000 mg Documented by: Hydrocodone Bitart/Acetaminophen ([place] 10) 1 each PO Q6HR PRN PRN Reason: Moderate Pain Last Admin: 09/04/19 10:24 Dose: 1 each Documented by: Albuterol/Ipratropium (Duoneb 0.5 Mg-3 Mg/3 Ml Soln) 3 ml INHALATION RT-TID [facility] Last Admin: 09/04/19 15:34 Dose: 3 ml Documented by: Allopurinol (Zyloprim) 100 mg PO DAILY@0800 [facility] Last Admin: 09/04/19 07:26 Dose: 100 mg Documented by: Atorvastatin Calcium (Lipitor) 40 mg PO DAILY@1700 [facility] Last Admin: 09/03/19 16:37 Dose: 40 mg Documented by: Bisacodyl (Dulcolax) 10 mg RECTAL DAILY PRN PRN Reason: Constipation Carbidopa/Levodopa (Sinemet 25-250) 1 each PO BID@0800,1700 [facility] Last Admin: 09/04/19 07:27 Dose: 1 each Documented by: Escitalopram Oxalate (Lexapro) 20 mg PO DAILY@0800 [facility] Last Admin: 09/04/19 07:26 Dose: 20 mg Documented by: Gabapentin (Neurontin) 100 mg PO TID@0600,1400,2100 [facility] Last Admin: 09/04/19 13:16 Dose: 100 mg Documented by: Hydrocortisone Acetate (Anusol-Hc) 25 mg RECTAL DAILY [facility] Last Admin: 09/04/19 07:27 Dose: 25 mg Documented by: Isosorbide Mononitrate (Imdur) 30 mg PO DAILY@0800 [facility] Last Admin: 09/04/19 07:25 Dose: 30 mg Documented by: Metoprolol Tartrate (Lopressor) 25 mg PO TID@0600,1400,2100 [facility] Last Admin: 09/04/19 13:18 Dose: 25 mg Documented by: Modafinil (Provigil) 100 mg PO DAILY PRN PRN Reason: NACRCOLEPSY Naloxone HCl (Narcan) 0.2 mg IV Q2M PRN PRN Reason: Opioid Reversal Nitroglycerin (Nitrostat) 0.4 mg SUBLINGUAL Q5M PRN PRN Reason: Chest Pain Nystatin (Mycostatin Powder) 1 applic TOPICAL DAILY PRN PRN Reason: RASH ON GROIN,UNDER BREASTS Ondansetron HCl (Zofran) 4 mg IVP Q8HR PRN PRN Reason: Nausea And Vomiting Ropinirole HCl (Requip) 2 mg PO TID@0600,1400,2100 [facility] Last Admin: 09/04/19 13:19 Dose: 2 mg Documented by: Trazodone HCl (Desyrel) 50 mg PO HS@2100 [facility] Last Admin: 09/03/19 21:23 Dose: 50 mg Documented by: Physical examination: VITAL SIGNS: 98, 78, 18, 129/70, 97% on 2 L GENERAL: Laying in bed comfortable EYES: Pupils equal. Conjunctiva normal. HEENT: External appearance of nose and ears normal, oral cavity grossly normal. NECK: JVD unable to assess; masses not palpable. HEART: First and second heart sounds are normal; no edema. LUNGS: Respiratory rate normal; distant breath sounds. ABDOMEN: Soft, nontender, liver spleen not palpable, no masses palpable. PSYCH: [Alert and oriented x3; mood and affect bit anxious NEUROLOGICAL: Cranial nerves grossly intact; no facial asymmetry, limited range of motion both lower extremity. INVESTIGATIONS, reviewed in the clinical context: Admission labs: White count 4.9 hemoglobin: 10.3 platelets 65 potassium 5.1 BUN 41 creatinine 0.9 to Assessment: -Acute bright red blood per rectum at least 3 episodes. -Chronic congestive heart failure from diastolic dysfunction EF 50-55% -Chronic L1 compression fracture -COPD in a nonsmoker -Obstructive sleep apnea does not use CPAP machine -Chronic narcolepsy -Chronic bladder dysfunction with the stimulator urine-coronary artery disease with a history of bypass -Permanent pacemaker -Chronic hypercapnic respiratory failure on oxygen -Chronic fibromyalgia -Renal cell carcinoma with right nephrectomy -GERD --restless leg syndrome Plan: Repeat labs in the morning. If no further bleeding. Resume anti-coagulants in the morning. Care was discussed with the patient. Possible discharge to [facility] tomorrow.
--- NOTE | 2019-09-04 16:10 | P.PN ---
Subjective Progress Note Date: 09/04/19 Principal diagnosis: Anemia, lower GI bleeding Patient is seen lying in bed, reporting she tolerated diet yesterday. No nausea or vomiting. No further signs or symptoms of GI bleeding. 3 nonbloody bowel movements today. Objective - Vital Signs Vital signs: Vital Signs Temp 98.5 F 09/04/19 05:20 Pulse 69 09/04/19 09:16 Resp 20 09/04/19 05:20 BP 138/69 09/04/19 05:20 Pulse Ox 97 09/04/19 05:20 Intake & Output 09/03/19 09/04/19 09/04/19 18:59 06:59 18:59 Intake Total 800 600 Output Total 800 Balance 800 -200 Intake: Intake, IV Titration 800 600 Amount Sodium Chloride 0.9% 1, 800 600 000 ml @ 100 mls/hr IV . [facility] Rx#:[id number] Output: Urine 800 Other: Voiding Method Bedside Commode # Voids 4 1 # Bowel Movements 1 - Exam On physical examination, patient appears comfortable in no apparent distress. HEAD: Normocephalic, atraumatic. EYES: No scleral icterus. No conjunctival injection. MOUTH: No lesions, tongue midline. NECK: Trachea midline, no gross abnormalities. ABDOMEN: Soft, obese. Bowel sounds are positive. No organomegaly. No guarding or rigidity. EXTREMITIES: No pedal edema. SKIN: No rashes, no jaundice. NEUROLOGIC: Alert and oriented. - Labs CBC & Chem 7: 09/03/19 03:20 09/03/19 03:20 Assessment and Plan (1) Bright red blood per rectum Narrative/Plan: 69-year-old female presenting with complaints of bright red blood per rectum. Patient has multiple comorbidities and reports problems with hemorrhoidal bleeding in the past. She believes her last colonoscopy was within the past 1-2 years at [facility] and normal. The patient has a known history of macrocytic anemia and thrombocytopenia evaluated earlier in the year by the hematology service with findings of a paraproteinemia. However on questioning the patient is unclear of what her diagnosis is. Hemoglobin appears to be at baseline with hemoglobin in the 10 range on discharge earlier in the year and currently 10.3. Likely etiology is a perirectal bleeding, with differential also including diverticulosis, AVM, or other etiology. Current Visit: Yes Status: Acute Code(s): K62.5 - HEMORRHAGE OF ANUS AND RECTUM SNOMED Code(s): 94664688 (2) Bicytopenia Narrative/Plan: Known history of macrocytic anemia and thrombocytopenia evaluated earlier in the year by the hematology service with findings of a paraproteinemia. However on questioning the patient is unsure of her diagnosis or follow-up with the hemat ology service. Current Visit: Yes Status: Acute Code(s): D75.89 - OTHER SPECIFIED DISEASES OF BLOOD AND BLOOD-FORMING ORGANS SNOMED Code(s): 45399772 Plan: Supportive care Continue to monitor hemoglobin and transfuse as needed Perirectal care with Anusol daily Continue to monitor stool output No plans for endoscopy at this time given the patient's known history of anemia and stable hemoglobin, as well as see patient's reports of colonoscopic evaluation in the past one to 2 years at [facility], however if the patient continues to have bleeding or fall in hemoglobin we'll reevaluate at that time Thank you for allowing us to participate in the care of the patient we will continue to follow
[2019-09-04] MEDS: ATORVASTATIN 40 MG TAB PO SCH (17:11)
[2019-09-04] MEDS: APIXABAN 5 MG TAB PO SCH (17:14)
[2019-09-04] MEDS: traZODone HCL 50 MG TAB PO SCH (20:16)
[2019-09-05] MEDS: HYDROcodone/APAP 10-325MG 1 EACH TAB PO PRN ×3 (01:16→17:43)
[2019-09-05] MEDS: METOPROLOL TARTRATE 25 MG TAB PO SCH ×3 (05:49→20:14)
[2019-09-05] MEDS: GABAPENTIN 100 MG CAP PO SCH ×3 (05:49→20:14)
[2019-09-05 07:41] LABS: Anisocytosis Slight; HCT 32.9 % (34.0-46.0); HGB 9.9 gm/dL (11.4-16.0); Hypochromasia Moderate; MCH 33.8 pg (25.0-35.0); MCHC 30.1 g/dL (31.0-37.0); Macrocytosis Marked; Mean Platelet Volume 8.8; RBC 2.93 m/uL (3.80-5.40); RDW 16.8 % (11.5-15.5); WBC 5.2 k/uL (3.8-10.6)
[2019-09-05] MEDS: IPRATROPIUM-ALBUTEROL 3 ML NEB INHALATION SCH ×3 (07:49→19:07)
[2019-09-05 07:50] LABS: Platelet Count 63 k/uL (150-450)
[2019-09-05] MEDS: HYDROCORTISONE SUPPOSITORY 25 MG SUPP RECTAL SCH (09:02)
[2019-09-05] MEDS: ALLOPURINOL 100 MG TAB PO SCH (09:02)
[2019-09-05] MEDS: ESCITALOPRAM 20 MG TAB PO SCH (09:02)
[2019-09-05] MEDS: CARBIDOPA-LEVODOPA 25-250 MG 1 EACH TAB PO SCH ×2 (09:02→17:43)
[2019-09-05] MEDS: ISOSORBIDE MONONITRATE ER 30 MG TAB.ER.24H PO SCH (09:02)
[2019-09-05] MEDS: ACETAMINOPHEN TAB 500 MG TAB PO SCH ×2 (09:02→20:14)
[2019-09-05] MEDS: APIXABAN 5 MG TAB PO SCH ×2 (09:02→17:43)
--- NOTE | 2019-09-05 12:31 | P.DS ---
Providers Date of admission: 09/03/19 05:12 Expected date of discharge: 09/05/19 Attending physician: Nasim Colon Consults: 09/03/19 05:13 Consult Physician Urgent Consulting Provider: Edy Mcgee Consult Reason/Comments: lower GIB Do you want consulting provider notified?: Yes, Notify in am Primary care physician: Esteban Harman MD Hospital Course: Chief Complaint: Bright red blood per rectum Hospital course: This is a 69-year-old patient of Dr. Weiss whose chronic stable medical conditions include restless leg syndrome, GERD, renal cell carcinoma with right nephrectomy, fibromyalgia, chronic hypercapnic respiratory failure, permanent pacemaker, coronary artery disease with bypass, chronic bladder dysfunction, chronic narcolepsy, obstructive sleep apnea does not use CPAP, COPD, chronic L1 compression fracture, CHF from diastolic dysfunction EF 50-55%. Patient has been living at [facility] Since May 03. Patient has chronic pain. Does follow with Dr. Rosales from pain services. Patient presented with episodes of bright red blood per rectum. Had 2 episodes yesterday evening and at least 1 more episode in the hospital here. Slight abdominal discomfort. No fever no chills. No diarrhea. GI was consulted. Admitted for the same. Seen by Dr. Lal from GI. [place] to be possible perirectal/hemorrhoidal bleeding. Plan is not for any endoscopy until further bleeding. Patient remained stable. Has had a brown stool. Hemoglobin 9.9 Consultation: Dr. Lal from GI. Physical examination: VITAL SIGNS: 97.8, 57, 18, 11 7/59, 95% on 2 L GENERAL: Laying in bed comfortable EYES: Pupils equal. Conjunctiva normal. HEENT: External appearance of nose and ears normal, oral cavity grossly normal. NECK: JVD unable to assess; masses not palpable. HEART: First and second heart sounds are normal; no edema. LUNGS: Respiratory rate normal; distant breath sounds. ABDOMEN: Soft, nontender, liver spleen not palpable, no masses palpable. PSYCH: [Alert and oriented x3; mood and affect bit anxious NEUROLOGICAL: Cranial nerves grossly intact; no facial asymmetry, limited range of motion both lower extremity. INVESTIGATIONS, reviewed in the clinical context: Hemoglobin 9.9 Admission labs: White count 4.9 hemoglobin: 10.3 platelets 65 potassium 5.1 BUN 41 creatinine 0.9 to Discharge diagnosis: -Acute bright red blood per rectum, possibly perirectal bleed/hemorrhoidal bleeding. -Chronic congestive heart failure from diastolic dysfunction EF 50-55% -Chronic L1 compression fracture -COPD in a nonsmoker -Obstructive sleep apnea does not use CPAP machine -Chronic narcolepsy -Chronic bladder dysfunction with the stimulator urine-coronary artery disease with a history of bypass -Permanent pacemaker -Chronic hypercapnic respiratory failure on oxygen -Chronic fibromyalgia -Renal cell carcinoma with right nephrectomy -GERD --restless leg syndrome Disposition: [facility] Patient Condition at Discharge: Stable Plan - Discharge Summary Discharge Rx Participant: No New Discharge Prescriptions: New Hydrocortisone Suppository [Anusol-Hc] 25 mg RECTAL DAILY supp Continue Escitalopram [Lexapro] 20 mg PO DAILY@0800 Carbidopa/Levodopa [Sinemet 25-250 mg] 1 tab PO BID@0800,1700 Allopurinol [Zyloprim] 100 mg PO DAILY@0800 Isosorbide Mononitrate ER [Imdur] 30 mg PO DAILY@0800 Omeprazole [PriLOSEC] 40 mg PO DAILY@0600 Ferrous Sulfate [Iron] 325 mg PO DAILY@1700 Nitroglycerin Sl Tabs [Nitrostat] 0.4 mg SUBLINGUAL Q5M PRN PRN Reason: Chest Pain Nystatin [Nystop] 1 applic TOPICAL DAILY PRN PRN Reason: GROIN,UNDER BREASTS Na Phos,M-B/Na Phos,Di-Ba [Fleet Adult] 133 ml RECTAL DAILY PRN PRN Reason: Constipation Bisacodyl [Dulcolax] 10 mg RECTAL DAILY PRN PRN Reason: Constipation Atorvastatin [Lipitor] 40 mg PO DAILY@1700 Acetaminophen Tab [Tylenol] 1,000 mg PO BID@0800,2100 Furosemide [Lasix] 20 mg PO DAILY@0800 Ipratropium-Albuterol Nebulize [Duoneb 0.5 mg-3 mg/3 ml Soln] 3 ml INHALATION RT-TID Magnesium Hydroxide [Milk of Magnesia] 2,400 mg PO DAILY PRN PRN Reason: Constipation Metoprolol Tartrate [Lopressor] 25 mg PO TID@0600,1400,2100 Modafinil [Provigil] 100 mg PO DAILY PRN PRN Reason: Insomnia traZODone HCL 50 mg PO HS@2100 Menthol [Biofreeze] 1 applic TOPICAL DAILY PRN PRN Reason: Pain Apixaban [Eliquis] 5 mg PO BID@0800,1700 rOPINIRole HCL [Requip] 2 mg PO TID@0600,1399,2099 Gabapentin [Neurontin] 100 mg PO TID@0600,1399,2099 #9 cap HYDROcodone/APAP 10-325MG [[place] 10-325] 1 tab PO Q6HR PRN #12 tab PRN Reason: Pain Discontinued Aspirin [[place] Aspirin EC] 81 mg PO DAILY@1700 Docusate [Colace] 100 mg PO DAILY@0800 Discharge Medication List Allopurinol [Zyloprim] 100 mg PO DAILY@0800 02/03/19 [History] Carbidopa/Levodopa [Sinemet 25-250 mg] 1 tab PO BID@0800,1700 02/03/19 [History] Escitalopram [Lexapro] 20 mg PO DAILY@0800 02/03/19 [History] Isosorbide Mononitrate ER [Imdur] 30 mg PO DAILY@0802/03/19 [History] Ferrous Sulfate [Iron] 325 mg PO DAILY@169903/01/19 [History] Nitroglycerin Sl Tabs [Nitrostat] 0.4 mg SUBLINGUAL Q5M PRN 03/01/19 [History] Omeprazole [PriLOSEC] 40 mg PO DAILY@0603/01/19 [History] Atorvastatin [Lipitor] 40 mg PO DAILY@17005/15/19 [History] Bisacodyl [Dulcolax] 10 mg RECTAL DAILY PRN 05/15/19 [History] Na Phos,M-B/Na Phos,Di-Ba [Fleet Adult] 133 ml RECTAL DAILY PRN 05/15/19 [History] Nystatin [Nystop] 1 applic TOPICAL DAILY PRN 05/15/19 [History] Acetaminophen Tab [Tylenol] 1,000 mg PO BID@0800,2100 07/05/19 [History] Furosemide [Lasix] 20 mg PO DAILY@0800 07/05/19 [History] Ipratropium-Albuterol Nebulize [Duoneb 0.5 mg-3 mg/3 ml Soln] 3 ml INHALATION RT-TID 07/05/19 [History] Magnesium Hydroxide [Milk of Magnesia] 2,400 mg PO DAILY PRN 07/05/19 [History] Metoprolol Tartrate [Lopressor] 25 mg PO TID@0600,1400,209907/05/19 [History] Modafinil [Provigil] 100 mg PO DAILY PRN 08/02/19 [History] Apixaban [Eliquis] 5 mg PO BID@0800,1700 08/08/19 [History] Menthol [Biofreeze] 1 applic TOPICAL DAILY PRN 08/08/19 [History] rOPINIRole HCL [Requip] 2 mg PO TID@0600,1400,209908/08/19 [History] traZODone HCL 50 mg PO HS@209908/08/19 [History] Gabapentin [Neurontin] 100 mg PO TID@0600,1400,2099 #9 cap 09/05/19 [Rx] HYDROcodone/APAP 10-325MG [[place] 10-325] 1 tab PO Q6HR PRN #12 tab 09/05/19 [Rx] Hydrocortisone Suppository [Anusol-Hc] 25 mg RECTAL DAILY supp 09/05/19 [Rx] Follow up Appointment(s)/Referral(s): Esteban Harman MD [Primary Care Provider] - 1-2 days
[2019-09-05] MEDS: ATORVASTATIN 40 MG TAB PO SCH (17:43)
[2019-09-05] MEDS: traZODone HCL 50 MG TAB PO SCH (20:14)
--- NOTE | 2019-09-05 22:19 | P.PN ---
Progress Note - Text Progress Note Date: 09/05/19 Chief Complaint: Bright red blood per rectum Interval history: This is a 69-year-old patient of Dr. Weiss whose chronic stable medical conditions include restless leg syndrome, GERD, renal cell carcinoma with right nephrectomy, fibromyalgia, chronic hypercapnic respiratory failure, permanent pacemaker, coronary artery disease with bypass, chronic bladder dysfunction, chronic narcolepsy, obstructive sleep apnea does not use CPAP, COPD, chronic L1 compression fracture, CHF from diastolic dysfunction EF 50-55%. Patient has been living at [facility] Since May 03. Patient has chronic pain. Does follow with Dr. Rosales from pain services. Patient presented with episodes of bright red blood per rectum. Had 2 episodes yesterday evening and at least 1 more episode in the hospital here. Slight abdominal discomfort. No fever no chills. No diarrhea. GI was consulted. Admitted for the same. Seen by Dr. Lal from GI. [place] to be possible perirectal/hemorrhoidal bleeding. Plan is not for any endoscopy until further bleeding. Patient had brown stools. Since then. Stable. Today-comfortable. Laying in bed. No new issues. [facility] Review of systems: Was done for constitutional, cardiovascular, GI, pulmonary. relevant finding as above Physical examination: VITAL SIGNS: 97.8, 57, 18, 11 7/59, 95% on 2 L GENERAL: Laying in bed comfortable EYES: Pupils equal. Conjunctiva normal. HEENT: External appearance of nose and ears normal, oral cavity grossly normal. NECK: JVD unable to assess; masses not palpable. HEART: First and second heart sounds are normal; no edema. LUNGS: Respiratory rate normal; distant breath sounds. ABDOMEN: Soft, nontender, liver spleen not palpable, no masses palpable. PSYCH: [Alert and oriented x3; mood and affect bit anxious NEUROLOGICAL: Cranial nerves grossly intact; no facial asymmetry, limited range of motion both lower extremity. INVESTIGATIONS, reviewed in the clinical context: Hemoglobin 9.9 Admission labs: White count 4.9 hemoglobin: 10.3 platelets 65 potassium 5.1 BUN 41 creatinine 0.9 to Assessment: -Acute bright red blood per rectum at least 3 episodes. [place] to be perirectal/hemorrhoidal. -Chronic congestive heart failure from diastolic dysfunction EF 50-55% -Chronic L1 compression fracture -COPD in a nonsmoker -Obstructive sleep apnea does not use CPAP machine -Chronic narcolepsy -Chronic bladder dysfunction with the stimulator urine-coronary artery disease with a history of bypass -Permanent pacemaker -Chronic hypercapnic respiratory failure on oxygen -Chronic fibromyalgia -Renal cell carcinoma with right nephrectomy -GERD --restless leg syndrome Plan: Continue current medication.. Patient is supposed to go back to the [facility]CF. Discussed with the social group worker today.
[2019-09-06] MEDS: GABAPENTIN 100 MG CAP PO SCH (05:31)
[2019-09-06] MEDS: METOPROLOL TARTRATE 25 MG TAB PO SCH (05:31)
[2019-09-06] MEDS: HYDROcodone/APAP 10-325MG 1 EACH TAB PO PRN (05:31)
[2019-09-06] MEDS: IPRATROPIUM-ALBUTEROL 3 ML NEB INHALATION SCH ×2 (08:06→15:25)
[2019-09-06] MEDS: ACETAMINOPHEN TAB 500 MG TAB PO SCH (08:11)
[2019-09-06] MEDS: CARBIDOPA-LEVODOPA 25-250 MG 1 EACH TAB PO SCH (08:11)
[2019-09-06] MEDS: ALLOPURINOL 100 MG TAB PO SCH (08:11)
[2019-09-06] MEDS: HYDROCORTISONE SUPPOSITORY 25 MG SUPP RECTAL SCH (08:11)
[2019-09-06] MEDS: ISOSORBIDE MONONITRATE ER 30 MG TAB.ER.24H PO SCH (08:11)
[2019-09-06] MEDS: APIXABAN 5 MG TAB PO SCH (08:11)
[2019-09-06] MEDS: ESCITALOPRAM 20 MG TAB PO SCH (08:11)
[2019-09-06] MEDS ORDERED: INFLUENZA VACCINE (6 MOS+) 60 MCG/0.5 ML SYRINGE IM ONE (11:41)
[2019-09-06 11:59] VITALS: BP 96/54; RESP 18; TEMP 98.3
--- NOTE | 2019-09-06 12:19 | P.DS ---
Providers Date of admission: 09/03/19 05:12 Expected date of discharge: 09/06/19 Attending physician: Nasim Colon Primary care physician: Esteban Harman MD Hospital Course: Chief Complaint: Bright red blood per rectum Hospital course: This is a 69-year-old patient of Dr. Weiss whose chronic stable medical conditions include restless leg syndrome, GERD, renal cell carcinoma with right nephrectomy, fibromyalgia, chronic hypercapnic respiratory failure, permanent pacemaker, coronary artery disease with bypass, chronic bladder dysfunction, chronic narcolepsy, obstructive sleep apnea does not use CPAP, COPD, chronic L1 compression fracture, CHF from diastolic dysfunction EF 50-55%. Patient has been living at [facility] Since May 03. Patient has chronic pain. Does follow with Dr. Rosales from pain services. Patient presented with episodes of bright red blood per rectum. Had 2 episodes yesterday evening and at least 1 more episode in the hospital here. Slight abdominal discomfort. No fever no chills. No diarrhea. GI was consulted. Admitted for the same. Seen by Dr. Lal from GI. [place] to be possible perirectal/hemorrhoidal bleeding. Plan is not for any endoscopy until further bleeding. Today-no issues. Patient anxious to go back to rehab. Starting a diet. No abdominal pain. Consultation: Dr. Lal from GI. Physical examination: VITAL SIGNS: 98.3, 68, 18, 86/54, 95% on 2 L GENERAL: Laying in bed comfortable EYES: Pupils equal. Conjunctiva normal. HEENT: External appearance of nose and ears normal, oral cavity grossly normal. NECK: JVD unable to assess; masses not palpable. HEART: First and second heart sounds are normal; no edema. LUNGS: Respiratory rate normal; distant breath sounds. ABDOMEN: Soft, nontender, liver spleen not palpable, no masses palpable. PSYCH: [Alert and oriented x3; mood and affect bit anxious NEUROLOGICAL: Cranial nerves grossly intact; no facial asymmetry, limited range of motion both lower extremity. INVESTIGATIONS, reviewed in the clinical context: Hemoglobin 9.9 Admission labs: White count 4.9 hemoglobin: 10.3 platelets 65 potassium 5.1 BUN 41 creatinine 0.9 to Discharge diagnosis: -Acute bright red blood per rectum, possibly perirectal bleed/hemorrhoidal bleeding. -Chronic congestive heart failure from diastolic dysfunction EF 50-55% -Chronic L1 compression fracture -COPD in a nonsmoker -Obstructive sleep apnea does not use CPAP machine -Chronic narcolepsy -Chronic bladder dysfunction with the stimulator urine-coronary artery disease with a history of bypass -Permanent pacemaker -Chronic hypercapnic respiratory failure on oxygen -Chronic fibromyalgia -Renal cell carcinoma with right nephrectomy -GERD --restless leg syndrome Disposition: [facility] Patient Condition at Discharge: Stable Plan - Discharge Summary Discharge Rx Participant: No New Discharge Prescriptions: New Hydrocortisone Suppository [Anusol-Hc] 25 mg RECTAL DAILY supp Continue Escitalopram [Lexapro] 20 mg PO DAILY@0800 Carbidopa/Levodopa [Sinemet 25-250 mg] 1 tab PO BID@0800,1700 Allopurinol [Zyloprim] 100 mg PO DAILY@0800 Isosorbide Mononitrate ER [Imdur] 30 mg PO DAILY@0800 Omeprazole [PriLOSEC] 40 mg PO DAILY@0600 Ferrous Sulfate [Iron] 325 mg PO DAILY@1700 Nitroglycerin Sl Tabs [Nitrostat] 0.4 mg SUBLINGUAL Q5M PRN PRN Reason: Chest Pain Nystatin [Nystop] 1 applic TOPICAL DAILY PRN PRN Reason: GROIN,UNDER BREASTS Na Phos,M-B/Na Phos,Di-Ba [Fleet Adult] 133 ml RECTAL DAILY PRN PRN Reason: Constipation Bisacodyl [Dulcolax] 10 mg RECTAL DAILY PRN PRN Reason: Constipation Atorvastatin [Lipitor] 40 mg PO DAILY@1700 Acetaminophen Tab [Tylenol] 1,000 mg PO BID@0800,2100 Furosemide [Lasix] 20 mg PO DAILY@0800 Ipratropium-Albuterol Nebulize [Duoneb 0.5 mg-3 mg/3 ml Soln] 3 ml INHALATION RT-TID Magnesium Hydroxide [Milk of Magnesia] 2,400 mg PO DAILY PRN PRN Reason: Constipation Metoprolol Tartrate [Lopressor] 25 mg PO TID@0600,1400,2100 Modafinil [Provigil] 100 mg PO DAILY PRN PRN Reason: Insomnia traZODone HCL 50 mg PO HS@2100 Menthol [Biofreeze] 1 applic TOPICAL DAILY PRN PRN Reason: Pain Apixaban [Eliquis] 5 mg PO BID@0800,1700 rOPINIRole HCL [Requip] 2 mg PO TID@0600,1400,2100 Gabapentin [Neurontin] 100 mg PO TID@0600,1400,2100 #9 cap HYDROcodone/APAP 10-325MG [[place] 10-325] 1 tab PO Q6HR PRN #12 tab PRN Reason: Pain Discontinued Aspirin [[place] Aspirin EC] 81 mg PO DAILY@1700 Docusate [Colace] 100 mg PO DAILY@0800 Discharge Medication List Allopurinol [Zyloprim] 100 mg PO DAILY@0800 02/03/19 [History] Carbidopa/Levodopa [Sinemet 25-250 mg] 1 tab PO BID@0800,1700 02/03/19 [History] Escitalopram [Lexapro] 20 mg PO DAILY@0800 02/03/19 [History] Isosorbide Mononitrate ER [Imdur] 30 mg PO DAILY@0800 02/03/19 [History] Ferrous Sulfate [Iron] 325 mg PO DAILY@1700 03/01/19 [History] Nitroglycerin Sl Tabs [Nitrostat] 0.4 mg SUBLINGUAL Q5M PRN 03/01/19 [History] Omeprazole [PriLOSEC] 40 mg PO DAILY@0600 03/01/19 [History] Atorvastatin [Lipitor] 40 mg PO DAILY@17005/15/19 [History] Bisacodyl [Dulcolax] 10 mg RECTAL DAILY PRN 05/15/19 [History] Na Phos,M-B/Na Phos,Di-Ba [Fleet Adult] 133 ml RECTAL DAILY PRN 05/15/19 [History] Nystatin [Nystop] 1 applic TOPICAL DAILY PRN 05/15/19 [History] Acetaminophen Tab [Tylenol] 1,000 mg PO BID@0800,2100 07/05/19 [History] Furosemide [Lasix] 20 mg PO DAILY@0800 07/05/19 [History] Ipratropium-Albuterol Nebulize [Duoneb 0.5 mg-3 mg/3 ml Soln] 3 ml INHALATION RT-TID 07/05/19 [History] Magnesium Hydroxide [Milk of Magnesia] 2,400 mg PO DAILY PRN 07/05/19 [History] Metoprolol Tartrate [Lopressor] 25 mg PO TID@0600,1400,209907/05/19 [History] Modafinil [Provigil] 100 mg PO DAILY PRN 08/02/19 [History] Apixaban [Eliquis] 5 mg PO BID@0800,1700 08/08/19 [History] Menthol [Biofreeze] 1 applic TOPICAL DAILY PRN 08/08/19 [History] rOPINIRole HCL [Requip] 2 mg PO TID@0600,1400,209908/08/19 [History] traZODone HCL 50 mg PO HS@209908/08/19 [History] Gabapentin [Neurontin] 100 mg PO TID@0600,1400,2099 #9 cap 09/05/19 [Rx] HYDROcodone/APAP 10-325MG [[place] 10-325] 1 tab PO Q6HR PRN #12 tab 09/05/19 [Rx] Hydrocortisone Suppository [Anusol-Hc] 25 mg RECTAL DAILY supp 09/05/19 [Rx] Follow up Appointment(s)/Referral(s): Esteban Harman MD [Primary Care Provider] - 1-2 days
[2019-09-06 15:26] VITALS: PULSE 72
== END 2019-09-06 16:00 ==
LOC: EC 02:28 → 3NMEDONC 05:12
PROVIDERS: ADMIT Hospitalist; ATTEND Hospitalist
DX: K62.5 Hemorrhage of anus and rectum (principal); I50.32 Chronic diastolic (congestive) heart failure; M48.56XA Collapsed vertebra, not elsewhere classified, lumbar region, initial encounter for fracture; J44.9 Chronic obstructive pulmonary disease, unspecified; G47.33 Obstructive sleep apnea (adult) (pediatric); G47.419 Narcolepsy without cataplexy; N31.9 Neuromuscular dysfunction of bladder, unspecified; I25.10 Atherosclerotic heart disease of native coronary artery without angina pectoris; Z95.1 Presence of aortocoronary bypass graft; Z95.0 Presence of cardiac pacemaker; M79.7 Fibromyalgia; Z85.528 Personal history of other malignant neoplasm of kidney; Z90.5 Acquired absence of kidney; K21.9 Gastro-esophageal reflux disease without esophagitis; G25.81 Restless legs syndrome; J96.12 Chronic respiratory failure with hypercapnia; D89.2 Hypergammaglobulinemia, unspecified; D69.6 Thrombocytopenia, unspecified; D53.9 Nutritional anemia, unspecified; F41.9 Anxiety disorder, unspecified; M19.90 Unspecified osteoarthritis, unspecified site; I25.2 Old myocardial infarction; E66.01 Morbid (severe) obesity due to excess calories; Z68.42 Body mass index [BMI] 45.0-49.9, adult; R10.9 Unspecified abdominal pain; G89.29 Other chronic pain; M54.5 Low back pain; M47.9 Spondylosis, unspecified; G43.909 Migraine, unspecified, not intractable, without status migrainosus; M10.9 Gout, unspecified; M81.0 Age-related osteoporosis without current pathological fracture; R33.9 Retention of urine, unspecified; R32 Unspecified urinary incontinence; R42 Dizziness and giddiness; K58.9 Irritable bowel syndrome, unspecified; K01.1 Impacted teeth; Z99.81 Dependence on supplemental oxygen; Z23 Encounter for immunization; R29.6 Repeated falls; Z96.0 Presence of urogenital implants; Z82.49 Family history of ischemic heart disease and other diseases of the circulatory system; Z83.3 Family history of diabetes mellitus; Z84.1 Family history of disorders of kidney and ureter; Z81.8 Family history of other mental and behavioral disorders; Z79.899 Other long term (current) drug therapy; Z79.82 Long term (current) use of aspirin; Z79.01 Long term (current) use of anticoagulants; Z79.891 Long term (current) use of opiate analgesic; Z91.013 Allergy to seafood; Z88.2 Allergy status to sulfonamides; Z91.048 Other nonmedicinal substance allergy status
CPT/HCPCS: 96361 ×3; 96374; 99285; 36415; 94640 ×8; 94760 ×2; 97530; 97162; 97535; 97165; 86900; 86901; 80053; 83605; 84484; 85025; 85027; 85730; 86850; 90686; G0378 ×4; G0008; J2270

== ENCOUNTER → 2019-09-12 | Outpatient (CLI) | payer MEDICARE, OTHER ==
[2019-09-12 14:37] VITALS: BP 121/64; PULSE 83; RESP 18
--- NOTE | 2019-09-12 14:51 | P.PAINPG ---
Subjective Progress Note Date: 09/12/19 This is a follow-up visit for this 69 years old female, with a chronic history of severe low back pain patient diagnosed with lumbar spondylosis with lumbar facet arthropathy and lumbar degenerative disc disease, patient had 2 diagnostic medial branch block lumbar area L3 , L4, L5 (to block the facet at L4-5,L5-S1 ) Status post radiofrequency ablation of the right medial branch lumbar area , and she is here for follow-up visit, she reported that the radiofrequency helped her right-sided more than 50%, she continued to have severe low back pain on the left side and also she had some weakness in the lower extremity, he is morbidly obese, she continued to use [place] 10/325 every 6 hours when necessary and Neurontin milligrams 3 times a day and she is getting prescription refill from her primary care Objective - Vital Signs Vital signs: Vital Signs Temp Pulse 83 09/12/19 14:30 Resp 18 09/12/19 14:30 BP 121/64 09/12/19 14:30 Pulse Ox 98 09/12/19 14:30 - Exam Physical Examinations : -Constitutiona : Cooperative , not in acute distress . -HEENT : nech : supple , no Lymphadenopathy , normal thyroid size . eyes : no ptosis , no icterus, no photophobia . - neurologic : Cranial nerve II to XII intact , no focal neurological deffecit . -psychatric : alert , oriented X 3 , appropriate affect , intact judgment and insight . -Lymphatic : no Lymphadenopathy . - musculoskeltal : Lumber spine moter stegnth lower extremities ,thigh and legs 3/5 Right side , 3/5 Left side deep tendon reflexes : normal Knee Jerk , normal ankle Jerk positive lumber facet Loading Test Assessment and Plan Plan: Assessment and plan= lumbar spondylosis with lumbar facet arthropathy, she had a positive result after the diagnostic medial branch block lumbar areax2 Status post RFA of the right-sided medial branch lumbar area, and she could benefit from RFA of the left side medial branch Time with Patient: Less than 30 PQRS Measure Charge Sheet Measure #130: Documentation of Current Meds in Medical Chart: Patient's medications documented in chart Measure #226: Tobacco Use: Screen & Cessation Intervention: Pt not a tobacco user Measure #111: Pneumonia Vaccination: Pneumococcal vaccine administered or previously received Measure #47: Advance Care Plan: Advance care planning discussed & documented, pt chose/unable to give Measure #412: Opioid Treatment Agreement: No documentation of signed opioid treatment agreement Measure #408: Opioid Therapy Follow-up Evaluation: Patient had NO f/u eval minimum every 3 months during opioid therapy Measure #317: Preventitive Care & Scrn High Bld Press & F/U: Normal blood pressure, f/u not required Measure #128: Body Mass Index (BMI) Screening & Follow-up: BMI documented ABOVE normal parameters - f/u documented Measure #131: Pain Assessment & Follow-up: Pain positive & plan documented, Follow-up scheduled Measure #431: Unhealthy Alcohol Use Preventative Care & Scrn: Patient not identified as an unhealthy alcohol user PQRS Narrative: Smoking Status Never smoker Narcotic Agreement Date Signed 03/29/19 Blood Pressure 121/64 Pain Intensity [Right Hip] 5 Scale Used Numeric (1 - 10) Hx Alcohol Use (MH) No Home Medications: Ambulatory Orders Allopurinol [Zyloprim] 100 mg PO DAILY@0802/03/19 Carbidopa/Levodopa [Sinemet 25-250 mg] 1 tab PO BID@0800,169902/03/19 Escitalopram [Lexapro] 20 mg PO DAILY@0802/03/19 Isosorbide Mononitrate ER [Imdur] 30 mg PO DAILY@0802/03/19 Ferrous Sulfate [Iron] 325 mg PO DAILY@169903/01/19 Nitroglycerin Sl Tabs [Nitrostat] 0.4 mg SUBLINGUAL Q5M PRN 03/01/19 Omeprazole [PriLOSEC] 40 mg PO DAILY@0603/01/19 Atorvastatin [Lipitor] 40 mg PO DAILY@169905/15/19 Bisacodyl [Dulcolax] 10 mg RECTAL DAILY PRN 05/15/19 Nystatin [Nystop] 1 applic TOPICAL DAILY PRN 05/15/19 Acetaminophen Tab [Tylenol] 1,000 mg PO BID@0800,209907/05/19 Furosemide [Lasix] 20 mg PO DAILY@0807/05/19 Ipratropium-Albuterol Nebulize [Duoneb 0.5 mg-3 mg/3 ml Soln] 3 ml INHALATION RT-TID 07/05/19 Metoprolol Tartrate [Lopressor] 25 mg PO TID@0600,1400,209907/05/19 Modafinil [Provigil] 100 mg PO DAILY PRN 08/02/19 Apixaban [Eliquis] 5 mg PO BID@0800,1700 08/08/19 rOPINIRole HCL [Requip] 2 mg PO TID@0600,1400,209908/08/19 traZODone HCL 50 mg PO HS@209908/08/19 Gabapentin [Neurontin] 100 mg PO TID@0600,1399,2099 #9 cap 09/05/19 HYDROcodone/APAP 10-325MG [[place] 10-325] 1 tab PO Q6HR PRN #12 tab 09/05/19 Hydrocortisone Acetate [Anusol-Hc] 25 mg RC DAILY 09/07/19 Magnesium Hydroxide [Milk of Magnesia Concentrate] 30 ml PO DIRECTED PRN 09/07/19 Menthol [Biofreeze] 1 applic TOPICAL DAILY PRN 09/07/19 Na Phos,M-B/Na Phos,Di-Ba [Fleet Adult] 133 ml RECTAL DIRECTED PRN 09/07/19 Controlled Substance Measures - Controlled Substance Measures Is patient prescribed a controlled substance at discharge?: No
== END | disposition home or self-care (01) ==
LOC: PNWHC3 13:08
PROVIDERS: ATTEND Specialist
DX: G89.29 Other chronic pain (principal); M54.5 Low back pain; M51.36 Other intervertebral disc degeneration, lumbar region; M47.816 Spondylosis without myelopathy or radiculopathy, lumbar region; M46.96 Unspecified inflammatory spondylopathy, lumbar region; R53.1 Weakness; E66.01 Morbid (severe) obesity due to excess calories; Z68.42 Body mass index [BMI] 45.0-49.9, adult; Z98.890 Other specified postprocedural states; Z79.01 Long term (current) use of anticoagulants; Z79.899 Other long term (current) drug therapy
CPT/HCPCS: 99211

== ENCOUNTER 2019-09-21 07:23 | Day surgery (SDC) | payer MEDICARE, OTHER ==
[2019-09-20 10:14] VITALS: BMI 7103.1
[~2019-09-21 07:23] MED LIST changes: -IV FLUID CONTINUATION 1,000 ML IV ONE; -LIDOCAINE 1% 20 ML VIAL (10MG/ML) FOR IV START SQ ONE
[2019-09-21 07:44] VITALS: RESP 18; TEMP 97.9
[2019-09-21] MEDS ORDERED: LIDOCAINE 1% 20 ML VIAL (10MG/ML) FOR IV START INTRADERMA ONE (07:50)
--- NOTE | 2019-09-21 08:23 | P.PCN ---
Date of Procedure: 09/21/19 Procedure(s) Performed: PREOPERATIVE DIAGNOSIS: 1-Lumbar Spondylosis with Facet Arthropathy without myelopathy. 2- Lumber degenerative disc disease POSTOPERATIVE DIAGNOSIS: 1- Lumbar Spondylosis with Facet Arthropathy without myelopathy. 2- Lumber degenerative disc disease PROCEDURES : Left Radiofrequency thermocoagulation, L3, L4, and L5 medial branch, with fluoroscopic guidance (fluoroscopy images available in the radiology department) ANESTHESIA: Moderate sedation with Versed 1 mg and fentanyl 50 g EBL: Minimal PROCEDURE INDICATION: The patient with low back pain secondary to lumbar facet arthropathy who had more than 50% relief of her pain with previous diagnostic lumbar medial branch block with bupivacaine. PROCEDURE DESCRIPTION / TECHNIQUE: The patient was seen and identified in the preoperative area. Risks, benefits, complications, including but not limited to risk of infection ,bleeding , allergic reactions to the medications and no complete pain releife , and alternatives were discussed with the patient, the patient agreed to proceed with the procedure and signed the consent. IV was started. Vital signs remained stable throughout the procedure. Patient was taken to the OR and time out was completed. The patient was placed in the prone position on the procedure table. The lumber area was prepped and draped in the usual sterile fashion. Sedation was given to decrease the patient's an exact. Vital signs were closely monitored during the procedure . Using AP and then oblique fluoroscopy, the ``eye of the Tomás dog corresponding to the connection between the superior and transverse articular processes of left L3, L4, and L5 were identified, marked, and localized with 1% lidocaine. Subsequently, a [id number] radiofrequency cannula with a 10-mm active tip was advanced guided by fluoroscopy to each of the``eyes of the Tomás dog at left L3, L4, and L5. Each site then underwent sensory testing at 50 Hz and 0 to 1 volt and motor testing at 2.5 Hz and 0 to 3 volt with local stimulation, but no radicular symptoms down the legs. Thereafter the left L3, L4 , and L5 sites underwent radiofrequency thermocoagulation at 80 degrees celsius for 90 seconds after injecting 0.5 ml of PF Ropivacaine 1ml, then after the thermocoagulation done , 1 ml of the block solution containing Depo-Medrol 40 mg and 3 ml of Ropivacaine 0.5% was injected at the left L3 , L4 , and L5 , levels after negative aspiration of CSF and blood and with no paresthesias. Cannulas were retracted while injecting lidocaine 1% until the needle is out. At the end of the procedure, the skin was cleansed and bandages were applied. COMPLICATIONS: No acute complications. DISPOSITION / PLANS: The patient was placed in a supine position and transferred to the recovery area in a stable condition for observation and was discharged from the recovery room after meeting discharge criteria. Home discharge instructions given to the patient by the staff. The patient was reexamined prior to discharge. The patient will schedule a follow up in the clinic in 2-4 weeks. note = patient had pacemaker and magnet was placed on the chest wall over the pacemaker, before we started the to testing, and the magnets was removed after we finish the thermocoagulation and there was no changes in the EKG rhythem ,before ,and after we put the magnetic
[2019-09-21] MEDS ORDERED: IV FLUID CONTINUATION 1,000 ML IV ONE (08:34)
[2019-09-21 08:55] VITALS: BP 83/53; PULSE 62
--- NOTE | 2019-09-21 10:01 | FL ---
Fluoroscopy INDICATION: Pain FINDINGS: Fluoroscopy time: 11 seconds. Images obtained: 3. IMPRESSIONS: 1. Documentation of fluoroscopy.
== END 2019-09-21 09:12 | disposition home or self-care (01) ==
LOC: ORPAIN 07:23
PROVIDERS: ATTEND Specialist
DX: M47.816 Spondylosis without myelopathy or radiculopathy, lumbar region (principal); M51.36 Other intervertebral disc degeneration, lumbar region; Z79.01 Long term (current) use of anticoagulants; Z88.2 Allergy status to sulfonamides; Z91.048 Other nonmedicinal substance allergy status
CPT/HCPCS: 64635; 64636; J2250; J1030; J3010; 99152

== ENCOUNTER → 2019-10-10 | Outpatient (CLI) | payer MEDICARE, OTHER ==
[2019-10-10 12:48] VITALS: BP 96/61; PULSE 71; RESP 18
--- NOTE | 2019-10-10 13:14 | P.PAINPG ---
Subjective Progress Note Date: 10/10/19 This is a follow-up visit for this 69 years old female, with a chronic history of severe low back pain patient diagnosed with lumbar spondylosis with lumbar facet arthropathy and lumbar degenerative disc disease, status post radiofrequency thermocoagulation of the medial branch lumbar area , and she is here for follow-up visit,, currently she is complaining of severe localized pain in the right buttock area, she has some numbness and tingling sensation in the lower extremity also she had some weakness in the lower extremity, he is morbidly obese, she continued to use Edmonson 10/325 every 6 hours when necessary and Neurontin 100 mg 3 times a day and she is getting prescription refill from her primary care Objective - Vital Signs Vital signs: Vital Signs Temp Pulse 71 10/10/19 12:43 Resp 18 10/10/19 12:43 BP 96/61 10/10/19 12:43 Pulse Ox 97 10/10/19 12:43 - Exam -Constitutiona : Cooperative , not in acute distress . -HEENT : nech : supple , no Lymphadenopathy , normal thyroid size . eyes : no ptosis , no icterus, no photophobia . - neurologic : Cranial nerve II to XII intact , no focal neurological deffecit . -psychatric : alert , oriented X 3 , appropriate affect , intact judgment and insight . -Lymphatic : no Lymphadenopathy . - musculoskeltal : Lumber spine moter stegnth lower extremities ,thigh and legs 3/5 Right side , 3/5 Left side deep tendon reflexes : normal Knee Jerk , normal ankle Jerk positive lumber facet Loading Test Sever tenderness over the Sacroiliac joint on the Right . Gaenslen test= positive right . Seated flexion test= positive right . Assessment and Plan Plan: Assessment and plan= chronic severe low back pain secondary to lumbar spondylosis with lumbar facet arthropathy, right sacroiliitis Patient had good results after the RFA of the medial branch lumbar area. Patient currently complaining of severe localized pain in the right buttock area most likely secondary to right sacroiliitis. Patient could benefit from a right sacroiliac joint steroid injection, under fluoroscopy guidance,no need to hold ELIQUIS before the procedure. Patient should continue her Neurontin 100 mg 3 times a day and Edmonson 10/325 when necessary , description by PCP PQRS Measure Charge Sheet Measure #130: Documentation of Current Meds in Medical Chart: Patient's medications documented in chart Measure #226: Tobacco Use: Screen & Cessation Intervention: Pt not a tobacco user Measure #111: Pneumonia Vaccination: Pneumococcal vaccine administered or previously received Measure #47: Advance Care Plan: Advance care planning discussed & documented, pt chose/unable to give Measure #412: Opioid Treatment Agreement: No documentation of signed opioid treatment agreement Measure #408: Opioid Therapy Follow-up Evaluation: Patient had NO f/u eval minimum every 3 months during opioid therapy Measure #317: Preventitive Care & Scrn High Bld Press & F/U: Normal blood pressure, f/u not required Measure #128: Body Mass Index (BMI) Screening & Follow-up: BMI documented ABOVE normal parameters - f/u documented Measure #131: Pain Assessment & Follow-up: Pain positive & plan documented, Follow-up scheduled Measure #431: Unhealthy Alcohol Use Preventative Care & Scrn: Patient not identified as an unhealthy alcohol user PQRS Narrative: Smoking Status Never smoker Narcotic Agreement Date Signed 03/29/19 Blood Pressure 96/61 Pain Intensity [Right Hip] 8 Scale Used Numeric (1 - 10) Hx Alcohol Use (MH) No Home Medications: Ambulatory Orders Allopurinol [Zyloprim] 100 mg PO DAILY 02/03/19 Carbidopa/Levodopa [Sinemet 25-250 mg] 1 tab PO BID 02/03/19 Escitalopram [Lexapro] 20 mg PO DAILY 02/03/19 Isosorbide Mononitrate ER [Imdur] 30 mg PO DAILY 02/03/19 Ferrous Sulfate [Iron] 325 mg PO DAILY 03/01/19 Nitroglycerin Sl Tabs [Nitrostat] 0.4 mg SUBLINGUAL Q5M PRN 03/01/19 Omeprazole [PriLOSEC] 40 mg PO DAILY 03/01/19 Atorvastatin [Lipitor] 40 mg PO DAILY 05/15/19 Bisacodyl [Dulcolax] 10 mg RECTAL DAILY PRN 05/15/19 Acetaminophen Tab [Tylenol] 1,000 mg PO BID 07/05/19 Furosemide [Lasix] 20 mg PO DAILY 07/05/19 Ipratropium-Albuterol Nebulize [Duoneb 0.5 mg-3 mg/3 ml Soln] 3 ml INHALATION RT-TID 07/05/19 Metoprolol Tartrate [Lopressor] 25 mg PO TID 07/05/19 Modafinil [Provigil] 100 mg PO DAILY PRN 08/02/19 Apixaban [Eliquis] 5 mg PO BID 08/08/19 rOPINIRole HCL [Requip] 2 mg PO TID 08/08/19 traZODone HCL 50 mg PO HS PRN 08/08/19 HYDROcodone/APAP 10-325MG [Edmonson 10-325] 1 tab PO Q6HR PRN #12 tab 09/05/19 Magnesium Hydroxide [Milk of Magnesia Concentrate] 30 ml PO DIRECTED PRN 09/07/19 Menthol [Biofreeze] 1 applic TOPICAL DAILY PRN 09/07/19 Na Phos,M-B/Na Phos,Di-Ba [Fleet Adult] 133 ml RECTAL DIRECTED PRN 09/07/19 Gabapentin [Neurontin] 100 mg PO TID 10/07/19 Controlled Substance Measures - Controlled Substance Measures Is patient prescribed a controlled substance at discharge?: No
== END | disposition home or self-care (01) ==
LOC: PNWHC3 12:32
PROVIDERS: ATTEND Specialist
DX: G89.29 Other chronic pain (principal); M51.36 Other intervertebral disc degeneration, lumbar region; M47.816 Spondylosis without myelopathy or radiculopathy, lumbar region; M46.96 Unspecified inflammatory spondylopathy, lumbar region; M46.1 Sacroiliitis, not elsewhere classified; R20.0 Anesthesia of skin; E66.01 Morbid (severe) obesity due to excess calories; R53.1 Weakness; Z68.42 Body mass index [BMI] 45.0-49.9, adult; Z98.890 Other specified postprocedural states; Z79.01 Long term (current) use of anticoagulants; Z79.899 Other long term (current) drug therapy
CPT/HCPCS: 99211

== ENCOUNTER 2019-11-14 07:45 | Day surgery (SDC) | payer MEDICARE ==
[2019-11-10 15:52] VITALS: BMI 49.6
[2019-11-14 09:10] VITALS: TEMP 97
[2019-11-14] MEDS ORDERED: IV FLUID CONTINUATION 1,000 ML IV ONE (10:15)
--- NOTE | 2019-11-14 10:30 | FL ---
EXAMINATION TYPE: FL guided pain mgmt statistic DATE OF EXAM: 11/14/2019 COMPARISON: NONE HISTORY: Fluoroscopic documentation during sacroiliac joint injection for pain. TECHNIQUE: Fluoroscopy. FINDINGS: Fluoroscopic guidance was provided during procedure performed by Dr. Vences. A total of 3 sec onds of fluoroscopic time was utilized during the procedure and 2 spot images was acquired. IMPRESSION: As Above.
[2019-11-14 10:41] VITALS: BP 98/52; PULSE 96; RESP 19
--- NOTE | 2019-11-14 15:27 | P.PCN ---
Date of Procedure: 11/14/19 Procedure(s) Performed: Preoperative diagnoses: right sacroilitis Postoperative diagnoses: right sacroilitis. Procedure: right sacroiliac joint steroid injection under fluoroscopic guidance. Surgeon: Alex Vences MD Anesthesia: [2 mL of 1% lidocaine/IV sedation per hospital guidelines], sedation time 9 minutes Fluoroscopy was used for the procedure and fluoroscopic images were saved to the radiology portion of the patient's chart. EBL: None Procedure indication: The patient had a history of severe chronic low back pain, diagnosed with sacroiliitis unresponsive to conservative treatment. Procedure description: The patient was seen and identified in the preoperative holding area, risks and benefits and alternative of the procedure and possible complications discussed with the patient, and patient agreed with the preceding, patient signed the consent, an IV was started, and vital signs were monitored and were stable throughout the procedure, patient was placed in the prone position on table and the lumbosacral area was prepped and draped with a sterile fashion, vital signs were closely monitored during the procedure, the fluoroscopy camera was placed in the contralateral oblique view on the right sacroiliac joint and the lower part of the joint was identified . Then the skin and subcutaneous tissue was anesthetized using 2 mL of 1% lidocaine then a 22- gauge Quincke-type spinal needle advanced slowly under fluoroscopy and placed in the posterior and inferior border of the right sacroiliac joint, placement confirmed with AP and lateral view, and after appropriate needle placement confirmed and after negative aspiration for heme, 1 mL of Isovue 200 was injected revealing intra-articular spread. Then a solution consisting of 2 ml of ropivacaine 0.5% and 40 mg of Kenalog injected after negative aspiration, no paresthesia during the injection, no resistance to injection, and the needle was removed. Patient tolerated the procedure well without any complication. The patient was returned to supine position after the back was cleaned and a Band-Aid applied, the patient was transported to recovery room in stable condition and monitored for 30 minutes before being discharged home. The patient will follow up with the pain clinic in a few weeks
== END 2019-11-14 10:50 | disposition home or self-care (01) ==
LOC: ORPAIN 07:45
PROVIDERS: ATTEND Anesthesiology
DX: G89.29 Other chronic pain (principal); M46.1 Sacroiliitis, not elsewhere classified; M53.3 Sacrococcygeal disorders, not elsewhere classified; Z88.2 Allergy status to sulfonamides; Z91.013 Allergy to seafood; Z91.048 Other nonmedicinal substance allergy status; Z79.01 Long term (current) use of anticoagulants
CPT/HCPCS: J2250; J3301; Q9966; G0260; 27096

== ENCOUNTER 2020-01-02 08:04 | Day surgery (SDC) | payer MEDICARE ==
[2019-12-29 15:35] VITALS: BMI 50.0
[~2020-01-02 08:04] MED LIST changes: +BUPIVACAINE (PF) 0.5% 30 ML VIAL ONE; +MIDAZOLAM 2 MG/2 ML VIAL ONE; +fentaNYL (PF) 50 MCG/ML 2 ML AMP ONE; +methylPREDNISolone ACETATE 40 MG/ML 1 ML VIAL ONE
[2020-01-02 08:40] VITALS: RESP 20; TEMP 97.8
--- NOTE | 2020-01-02 09:08 | P.PCN ---
Date of Procedure: 01/02/20 Procedure(s) Performed: Procedure= bilateral sacral iliac joints steroid injection under fluoroscopy guidance (fluoroscopy image stored on file in the radiology Department ) Preoperative diagnosis= 1-sacroiliitis 2-lumbar degenerative disc disease 3- lumbar facet arthropathy Postoperative diagnosis=1-sacroiliitis 2-lumbar degenerative disc disease 3- lumbar facet arthropathy Complication = none Condition= stable Anesthesia= moderate sedation with intravenous Versed 2 mg , and fentanyl 50 micrograms . Indication for the procedure= patient complaining of low back pain , examination was positive for severe tenderness over the sacroiliac joints bilaterally and patient diagnosed with sacroiliitis, for this reason he/ she was good candidate for sacroiliac joint steroid injection. Description of the procedure= procedure risk and benefits discussed with the patient, including but not limited, risk of infection and bleeding, and ALLERGIC reaction to the medication and not complete pain relief and patient agreed with the preceding patient taken to the operating room, placed in prone position or standard monitors applied to the patient then after induction of anesthesia back prepped with chlorhexidine 3 times , Then under strict sterile technique, first I did the right sacroiliac joint the which was identified under fluoroscopy guidance been local infiltration of the skin and subcu interstitial with lidocaine 1% then 22-gauge 5 inches long Quincke -type Needle advanced slowly under fluoroscopy and placed in the right sacroiliac joint needle placement confirmed with AP and oblique and lateral view and after appropriate needle placement confirmed and after negative aspira tion, or heme , then Ropivacaine 0.5% 3 mL, and 40 mg of Depo-Medrol mixed together and injected in the right sacroiliac joint after negative aspiration patient tolerated the procedure well without any complication.
[2020-01-02] MEDS ORDERED: LACTATED RINGERS 1,000 ML IV ONE (09:13)
[2020-01-02 09:25] VITALS: PULSE 78
[2020-01-02 09:38] VITALS: BP 118/71
--- NOTE | 2020-01-02 10:25 | FL ---
EXAMINATION TYPE: FL guided pain mgmt statistic DATE OF EXAM: 01/02/2020 HISTORY: Pain 3 sec of fl for right SI joint injection
== END 2020-01-02 09:52 | disposition home or self-care (01) ==
LOC: ORPAIN 08:04
PROVIDERS: ATTEND Specialist
DX: M46.1 Sacroiliitis, not elsewhere classified (principal); M51.36 Other intervertebral disc degeneration, lumbar region; M47.816 Spondylosis without myelopathy or radiculopathy, lumbar region; Z91.048 Other nonmedicinal substance allergy status; Z88.2 Allergy status to sulfonamides; Z91.013 Allergy to seafood; Z79.891 Long term (current) use of opiate analgesic; Z79.899 Other long term (current) drug therapy
CPT/HCPCS: J2250; J1030; J3010; G0260; 27096

== ENCOUNTER → 2020-02-01 | Outpatient (CLI) | payer MEDICARE ==
[2020-02-01 12:56] VITALS: BP 118/72; PULSE 69; RESP 20
--- NOTE | 2020-02-01 13:25 | P.PAINPG ---
Subjective Progress Note Date: 02/01/20 Krista is a 69-year-old female who presents today for follow-up after having sacroiliac joint injection for right-sided low back pain. She is a morbidly obese female who presents in her motorized scooter. She reports pain over the right side of her low back and right buttock. She does not walk very much. She barely walks from the bed to her car at this time. She lives in assisted living facility. She reports that injections significantly improved her pain. She is doing much better than she is been in a long time. We discussed the injections in the risks benefits and alternatives to the injections. We discussed weight loss in detail on today's visit. She reports a VAS about 4 out of 10 which is worse with any activity and better with rest. She does have pain with sitting for long periods time. Objective - Vital Signs Vital signs: Vital Signs Temp Pulse 69 02/01/20 12:49 Resp 20 02/01/20 12:49 BP 118/72 02/01/20 12:49 Pulse Ox - Exam General: Awake and alert oriented 3 no distress, motorized scooter, home oxygen, morbidly obese Respiratory exam: No audible wheezing no accessory muscle usage Cardiovascular exam: regular rate, palpable bilateral pulses, no lower extremity edema Abdominal exam: No distention nontender to palpation Cervical spine: Normal alignment, Spurling's negative, facet loading negative Unable to assess the lumbar spine secondary to her body habitus and comfort level. Neuro exam: Normal sensation in bilateral upper extremities, deep tendon reflexes are 2+ bilateral upper extremities. Normal sensation in bilateral lower extremities. Deep tendon reflexes are 1+ in lower extremities Psych exam: Cooperative, appropriate mood Assessment and Plan Assessment: #1 sacroiliitis #2 lumbar spondylosis without myelopathy #3 super morbid obesity #4 debility Plan: At this time we will have the patient follow-up with us as needed to repeat the injection. We discussed that she should hold off at least 2-3 months before repeating the injection secondary to the steroid load. We discussed weight loss in detail PQRS Measure Charge Sheet Measure #130: Documentation of Current Meds in Medical Chart: Patient's medications documented in chart Measure #226: Tobacco Use: Screen & Cessation Intervention: Pt screened for tobacco use AND intervention given Measure #111: Pneumonia Vaccination: Pneumococcal vaccine administered or previously received Measure #47: Advance Care Plan: Advance care planning discussed & documented, plan or surrogate given Measure #412: Opioid Treatment Agreement: No documentation of signed opioid treatment agreement Measure #408: Opioid Therapy Follow-up Evaluation: Patient had f/u eval minimum every 3 months during opioid therapy Measure #317: Preventitive Care & Scrn High Bld Press & F/U: Normal blood pressure, f/u not required Measure #128: Body Mass Index (BMI) Screening & Follow-up: BMI documented ABOVE normal parameters - f/u documented Measure #131: Pain Assessment & Follow-up: Pain positive & plan documented Measure #431: Unhealthy Alcohol Use Preventative Care & Scrn: Patient not identified as an unhealthy alcohol user PQRS Narrative: Smoking Status Never smoker Narcotic Agreement Date Signed 03/29/19 Blood Pressure 118/72 Pain Intensity [Right Buttock] 7 Scale Used Numeric (1 - 10) Hx Alcohol Use (MH) No Home Medications: Ambulatory Orders Allopurinol [Zyloprim] 100 mg PO DAILY 02/03/19 Carbidopa/Levodopa [Sinemet 25-250 mg] 1 tab PO BID 02/03/19 Escitalopram [Lexapro] 20 mg PO DAILY 02/03/19 Isosorbide Mononitrate ER [Imdur] 30 mg PO DAILY 02/03/19 Ferrous Sulfate [Iron] 325 mg PO DAILY 03/01/19 Nitroglycerin Sl Tabs [Nitrostat] 0.4 mg SUBLINGUAL Q5M PRN 03/01/19 Omeprazole [PriLOSEC] 40 mg PO DAILY 03/01/19 Atorvastatin [Lipitor] 40 mg PO DAILY 05/15/19 Bisacodyl [Dulcolax] 10 mg RECTAL DAILY PRN 05/15/19 Furosemide [Lasix] 20 mg PO DAILY 07/05/19 Ipratropium-Albuterol Nebulize [Duoneb 0.5 mg-3 mg/3 ml Soln] 3 ml INHALATION RT-TID 07/05/19 Modafinil [Provigil] 100 mg PO DAILY PRN 08/02/19 Apixaban [Eliquis] 5 mg PO BID 08/08/19 rOPINIRole HCL [Requip] 2 mg PO TID 08/08/19 traZODone HCL 50 mg PO HS 08/08/19 Magnesium Hydroxide [Milk of Magnesia Concentrate] 30 ml PO DIRECTED PRN 09/07/19 Gabapentin [Neurontin] 100 mg PO TID 10/07/19 Benzocaine 20 % Gel [Orajel] 1 applic PO DAILY PRN 11/11/19 Menthol [Biofreeze] 1 applic TOPICAL DAILY PRN 11/11/19 Na Phos,M-B/Na Phos,Di-Ba [Fleet Adult] 133 ml RECTAL DAILY PRN 11/11/19 Nystatin 100,000 Unit/gm Powd [Mycostatin Powder] 1 applic TOPICAL DAILY PRN 11/11/19 HYDROcodone/APAP 10-325MG [Telephone 10-325] 1 tab PO BID 12/29/19 Lactase [Lactaid] 3,000 unit PO TID 01/26/20 Metoprolol Tartrate 25 mg PO TID 01/26/20 Controlled Substance Measures - Controlled Substance Measures Is patient prescribed a controlled substance at discharge?: No
== END | disposition home or self-care (01) ==
LOC: PNWHC3 12:32
PROVIDERS: ATTEND Hospitalist
DX: E66.01 Morbid (severe) obesity due to excess calories (principal); R53.81 Other malaise; M47.816 Spondylosis without myelopathy or radiculopathy, lumbar region; M46.1 Sacroiliitis, not elsewhere classified; Z79.891 Long term (current) use of opiate analgesic; Z79.899 Other long term (current) drug therapy
CPT/HCPCS: 99211

== ENCOUNTER 2020-03-27 19:50 | Inpatient (IN) | payer MEDICARE ==
[2020-03-27 21:01] LABS: ALT <6 U/L (4-34); AST 36 U/L (14-36); African American GFR (CKD) 64 (>60 ml/min/1.73 sqM); Alkaline Phosphatase 230 U/L (38-126); Anion Gap 5 mmol/L; Blood Urea Nitrogen 27 mg/dL (7-17); Calcium 8.2 mg/dL (8.4-10.2); Carbon Dioxide 31 mmol/L (22-30); Chloride 106 mmol/L (98-107); Glucose 98 mg/dL (74-99); Magnesium 1.6 mg/dL (1.6-2.3); Non-African American GFR(CKD) 56 (>60 ml/min/1.73 sqM); Potassium 4.3 mmol/L (3.5-5.1); Sodium 142 mmol/L (137-145); Total Bilirubin 1.1 mg/dL (0.2-1.3); Total Protein 7.1 g/dL (6.3-8.2)
[2020-03-27] MEDS ORDERED: LORazepam 2 MG/ML INJ IV STA ×2 (21:05→22:54)
[2020-03-27] MEDS: SODIUM CHLORIDE 0.9% 1,000 ML IV STA (21:06)
--- NOTE | 2020-03-27 21:13 | XR ---
EXAMINATION TYPE: XR chest 1V portable DATE OF EXAM: 03/27/2020 COMPARISON: 07/05/2019 HISTORY: Short of breath TECHNIQUE: Single view FINDINGS: Heart is enlarged. There is pulmonary edema. There are bilateral airspace infiltrates in th e lower lobes. There is a left axillary pacemaker. There are chest leads. IMPRESSION: Congestive heart failure with also some bilateral lower lobe pneumonia. Abnormalities ess entially new compared to old exam. Cardiomegaly increased compared to old exam.
[2020-03-27 21:20] LABS: INR 1.2 (<1.2); Partial Thromboplastin Time 26.2 sec (22.0-30.0); Prothrombin Time 11.7 sec (9.0-12.0)
[2020-03-27] MEDS ORDERED: FUROSEMIDE 10 MG/ML 4 ML VIAL IV STA (22:02)
[2020-03-27 22:08] LABS: Anisocytosis Slight; Basophils % (A) 0 %; Eosinophils # (A) 0.2 k/uL (0-0.7); Eosinophils % (A) 3 %; HCT 26.8 % (34.0-46.0); HGB 8.9 gm/dL (11.4-16.0); Hypochromasia Moderate; Lymphocytes # (A) 0.4 k/uL (1.0-4.8); Lymphocytes % (A) 5 %; MCH 36.1 pg (25.0-35.0); MCHC 33.1 g/dL (31.0-37.0); Macrocytosis Marked; Mean Platelet Volume 9.2; Monocytes # (A) 0.3 k/uL (0-1.0); Monocytes % (A) 4 %; Neutrophils # (A) 6.6 k/uL (1.3-7.7); Neutrophils % (A) 86 %; RBC 2.46 m/uL (3.80-5.40); RDW 17.2 % (11.5-15.5); WBC 7.6 k/uL (3.8-10.6)
[2020-03-27] MEDS ORDERED: THIAMINE 100 MG/ML 2 ML VIAL IVP STA (22:22)
[2020-03-27 22:26] LABS: Poikilocytosis (M) Present; Target Cells Present
[2020-03-27 22:27] LABS: Platelet Count 47 k/uL (150-450)
[2020-03-27] MEDS ORDERED: VANCOMYCIN IV PER PHARMACY 1 EACH MISC MISCELLANE PRN (22:27)
--- NOTE | 2020-03-27 22:27 | ED ---
General Adult HPI - General Source: patient, EMS Mode of arrival: EMS <Narendra Gallardo D - Last Filed: 03/27/20 23:00> <Minh Ruth Abram - Last Filed: 03/27/20 23:40> - General Chief complaint: Shortness of Breath Stated complaint: MICHAEL Time Seen by Provider: 03/27/20 20:07 - History of Present Illness Initial comments: Dictation was produced using [employer] dictation software. please excuse any grammatical, word or spelling errors. This patient was cared for during a federal and state declared state of emergency secondary to Covid 19 Chief Complaint: 69 yo female brought in by EMS for altered mental status, they from the oral cavity and shortness of breath. History of Present Illness: 69-year-old female she was sent in from local skilled nursing facility. She was sent here today for oral cavity bleeding, shortness of breath and possible right heart failure. Patient is altered and unable to provide detailed HPI. She does have dried blood about the lips. She did appear to be very anxious. Patient unreliable historian at this time. Unable to obtain secondary to mental status PHYSICAL EXAM: General Impression: Confused, agitated, tachypneic HEENT: Normocephalic atraumatic, extra-ocular movements intact, pupils equal and reactive to light bilaterally, dry mucous membranes, dry blood at the lips Cardiovascular: Heart regular rate and rhythm Chest: Tachypneic Abdomen: abdomen soft, non-tender, non-distended, no organomegaly Musculoskeletal: Pulses present and equal in all extremities, no peripheral edema Motor: no focal deficits noted Neurological: CN II-XII grossly intact Skin: Intact with no visualized rashes ED course: 69-year-old female presents with respiratory distress and altered mental status. EMS she was sent here for possible right heart failure, dyspnea and bleeding from the mouth. Patient is a poor historian at this time. Is unclear what patient's normal baseline mentation is. Vital signs upon arrival shows temperature 100.7, respiratory rate of 30, blood pressure of 97/82, she is 96% on 15 L nonrebreather. Patient showing signs of respiratory distress. She is placed on BiPAP. Patient's agitated at bedside. She is given some Ativan. She is tolerating BiPAP better. Point of care bedside ultrasound was performed. There was no pericardial effusion. There is no convincing findings to suggest heart failure. Laboratory evaluation obtained. No leukocytosis. Hemoglobin 8.0 which appears to be stable. Patient has significant macrocytic red blood cells. White count 47 which is around her baseline. White count unremarkable. Metabolic panel shows no anion gap acidosis. No significantly elevated renal markers. Negative troponin. Brain injury That of 2650. Coronavirus rapid test is negative. Chest x-ray was obtained showing bilateral lower lobe infiltrates concerning for pneumonia. Patient reevaluated after several minutes of BiPAP. She appears to be resting comfortably however when approached patient begins to become agitated. Considering patient's symptomatology with unclear clinical presentation patient's sent for CT angios the chest and CT brain. Arterial blood gases also ordered. [id number] be signed out to Dr. Ruth for f ollow-up of pending lab results and imaging studies. EKG interpretation: Ventricular rate 60, atrial paced rhythm,. Interval to 20, QRS 90, QTc 454. No NV prolongation, no QTC prolongation, no ST or T-wave changes noted. EKG compared to 07/13/2019 showing no changes. Overall, this EKG is unremarkable (Narendra Gallardo) Patient's care is signed out at shift change awaiting CT angiography and ABG. ABG showing normal pH, mild CO2 retention normal oxygenation. CT showing pulmonary edema as well as findings suggestive of pneumonia. Given the patient is febrile she is initiated on antibiotics covering healthcare associated pneumonia. Her Covid screen is negative although I do still have a suspicion and she will be kept on isolation precautions. Her lactic acid is normal, blood pressure remains around 100 systolic. She has normal oxygenation on BiPAP and remains in an atrial paced rhythm. She has anemia which is chronic, thrombocytopenia which is chronic. Case is discussed with Dr. Colon who will admit patient. Ordered. She will be continued on Lasix and antibiotics. Admitted to monitored bed. (Minh Ruth) - Related Data Home Medications Medication Instructions Recorded Confirmed Allopurinol [Zyloprim] 100 mg PO DAILY@0800 02/03/19 03/27/20 Carbidopa/Levodopa [Sinemet 25-250 1 tab PO BID@0800,1700 02/03/19 03/27/20 mg] Escitalopram [Lexapro] 20 mg PO DAILY@0800 02/03/19 03/27/20 Isosorbide Mononitrate ER [Imdur] 30 mg PO DAILY@0802/03/19 03/27/20 Ferrous Sulfate [Iron] 325 mg PO DAILY@0803/01/19 03/27/20 Nitroglycerin Sl Tabs [Nitrostat] 0.4 mg SL Q5M PRN 03/01/19 03/27/20 Atorvastatin [Lipitor] 40 mg PO DAILY@1700 05/15/19 03/27/20 Bisacodyl [Dulcolax] 10 mg RECTAL DAILY PRN 05/15/19 03/27/20 Furosemide [Lasix] 20 mg PO DAILY@0807/05/19 03/27/20 Ipratropium-Albuterol Nebulize 3 ml INHALATION RT-TID 07/05/19 03/27/20 [Duoneb 0.5 mg-3 mg/3 ml Soln] Modafinil [Provigil] 100 mg PO DAILY@0800 08/02/19 03/27/20 Apixaban [Eliquis] 5 mg PO BID@0800,1700 08/08/19 03/27/20 rOPINIRole HCL [Requip] 2 mg PO TID@0800,1700,209908/08/19 03/27/20 traZODone HCL 50 mg PO HS@209908/08/19 03/27/20 Magnesium Hydroxide [Milk of 30 ml PO Q48H PRN 09/07/19 03/27/20 Magnesia Concentrate] Gabapentin [Neurontin] 100 mg PO TID 10/07/19 03/27/20 Benzocaine 20 % Gel [Orajel] 1 applic PO DAILY PRN 11/11/19 03/27/20 Menthol [Biofreeze] 1 applic TOPICAL DAILY PRN 11/11/19 03/27/20 Na Phos,M-B/Na Phos,Di-Ba [Fleet 133 ml RECTAL DAILY PRN 11/11/19 03/27/20 Adult] Nystatin 100,000 Unit/gm Powd 1 applic TOPICAL Q8H PRN 11/11/19 03/27/20 [Mycostatin Powder] HYDROcodone/APAP 10-325MG [Endeavor 1 tab PO Q6H PRN 12/29/19 03/27/20 10-325] Lactase [Lactaid] 3,000 unit PO TID@0800,1200,1700 01/26/20 03/27/20 Metoprolol Tartrate 25 mg PO TID@0800,1200,2000 01/26/20 03/27/20 Caldesene Baby Powder 1 applic TOPICAL BID 03/27/20 03/27/20 Fexofenadine HCl 180 mg PO DAILY 03/27/20 03/27/20 HYDROcodone/APAP 10-325MG [Endeavor 1 tab PO BID@0800,1700 03/27/20 03/27/20 10-325] Lactase [Lactaid] 3,000 unit PO DAILY PRN 03/27/20 03/27/20 Omeprazole 40 mg PO DAILY@0700 03/27/20 03/27/20 Sodium Chloride [Rawlins] 1 spray EA NOSTRIL Q8H PRN 03/27/20 03/27/20 Allergies Allergy/AdvReac Type Severity Reaction Status Date / Time adhesive tape Allergy skin peels Verified 03/27/20 21:00 off Sulfa (Sulfonamide Allergy Unknown Verified 03/27/20 21:00 Antibiotics) Fish Containing Products AdvReac Nausea Verified 03/27/20 21:00 [Fish] Review of Systems ROS Other: All systems not noted in ROS Statement are negative. <Narendra Gallardo - Last Filed: 03/27/20 23:00> ROS Other: All systems not noted in ROS Statement are negative. <Minh Ruth - Last Filed: 03/27/20 23:40> ROS Statement: Those systems with pertinent positive or pertinent negative responses have been documented in the HPI. Past Medical History Past Medical History: Blood Disorder, Osteoarthritis (OA), Renal Disease Additional Past Medical History / Comment(s): Chronic low back pain which radiates down bilateral legs, lumbar disc disease, spondylosis, lumbar compression fracture, myofascial pain syndrome,migraines, gout bilateral feet, osteoporosis, frequent falls, chronic urine retention/incontinence/has bladder stimulator, 1972 R renal cancer with nephrectomy, anemia, cardiac murmur, home oxygen at 2-3L/NC ATC, KOFFI but device is broken, vertigo, narcolepsy, IBS, pt currently at [facility] for rehab pt currently has 2 impacted teeth taking antibiotics to have removed thursday Last Myocardial Infarction Date:: 2004 History of Any Multi-Drug Resistant Organisms: None Reported Past Surgical History: Appendectomy, Coronary Bypass/CABG, Heart Catheterization, Orthopedic Surgery, Pacemaker Additional Past Surgical History / Comment(s): Rt nephrectomy, lumber epidural injections-last one 03/07/19, bladder stimulator, fabricio carpal tunnel releases, surgery on left hand, 1 vessel CABG 2004, fabricio cataracts with lens implants, colonoscopy. Past Anesthesia/Blood Transfusion Reactions: Previous Problems w/ Anesthesia Additional Past Anesthesia/Blood Transfusion Reaction / Comment(s): Pt has received blood in past without reaction. Type of Cardiac Device: Permanent Pacemaker Device Placement Date:: 2006 Past Psychological History: Anxiety Smoking Status: Never smoker Past Alcohol Use History: None Reported Past Drug Use History: None Reported - Past Family History Mother Family Medical History: Diabetes Mellitus, Hypertension, Renal Disease Father Additional Family Medical History / Comment(s): Father comitted suicide. Family Family Medical History: Coronary Artery Disease (CAD) <Narendra Gallardo - Last Filed: 03/27/20 23:00> Course Vital Signs 03/27/20 03/27/20 03/27/20 20:25 20:39 20:52 Temperature 100.7 F H Pulse Rate 83 Respiratory 30 H 30 H 38 H Rate Blood Pressure 97/82 O2 Sat by Pulse 96 Oximetry 03/27/20 03/27/20 03/27/20 21:50 22:00 22:10 Temperature Pulse Rate 60 60 Respiratory 19 22 29 H Rate Blood Pressure 72/35 O2 Sat by Pulse 97 98 96 Oximetry 03/27/20 03/27/20 03/27/20 22:20 22:23 22:30 Temperature Pulse Rate 61 60 Respiratory 16 18 Rate Blood Pressure 94/37 94/37 O2 Sat by Pulse 62 L 98 96 Oximetry 03/27/20 22:40 Temperature Pulse Rate Respiratory Rate Blood Pressure 103/60 O2 Sat by Pulse Oximetry Medical Decision Making - Lab Data Result diagrams: 03/27/20 21:53 03/27/20 20:22 <Narendra Gallardo - Last Filed: 03/27/20 23:00> - Lab Data Result diagrams: 03/27/20 21:53 03/27/20 20:22 <Minh Ruth - Last Filed: 03/27/20 23:40> - Lab Data Lab Results 03/27/20 03/27/20 03/27/20 Range/Units 20:22 20:22 20:22 WBC (3.8-10.6) k/uL RBC (3.80-5.40) m/uL Hgb (11.4-16.0) gm/dL Hct (34.0-46.0) % MCV (80.0-100.0) fL MCH (25.0-35.0) pg MCHC (31.0-37.0) g/dL RDW (11.5-15.5) % Plt Count (150-450) k/uL Neutrophils % % Lymphocytes % % Monocytes % % Eosinophils % % Basophils % % Neutrophils # (1.3-7.7) k/uL Lymphocytes # (1.0-4.8) k/uL Monocytes # (0-1.0) k/uL Eosinophils # (0-0.7) k/uL Basophils # (0-0.2) k/uL Manual Slide Review Hypochromasia Poikilocytosis (manual Anisocytosis Macrocytosis Target Cells PT 11.7 (9.0-12.0) sec INR 1.2 H (<1.2) APTT 26.2 (22.0-30.0) sec Sample Site ABG pH (7.35-7.45) ABG pCO2 (35-45) mmHg ABG pO2 (83-108) mmHg ABG HCO3 (21-25) mmol/L ABG Total CO2 (19-24) mmol/L ABG O2 Saturation (94-97) % ABG Base Excess mmol/L Shamir Test FiO2 % Sodium 142 (137-145) mmol/L Potassium 4.3 (3.5-5.1) mmol/L Chloride 106 (98-107) mmol/L Carbon Dioxide 31 H (22-30) mmol/L Anion Gap 5 mmol/L BUN 27 H (7-17) mg/dL Creatinine 1.02 (0.52-1.04) mg/dL Est GFR (CKD-EPI)AfAm 64 (>60 ml/min/1.73 sqM) Est GFR (CKD-EPI)NonAf 56 (>60 ml/min/1.73 sqM) Glucose 98 (74-99) mg/dL Plasma Lactic Acid Zaid 1.7 (0.7-2.0) mmol/L Calcium 8.2 L (8.4-10.2) mg/dL Magnesium 1.6 (1.6-2.3) mg/dL Total Bilirubin 1.1 (0.2-1.3) mg/dL AST 36 (14-36) U/L ALT <6 (4-34) U/L Alkaline Phosphatase 230 H (38-126) U/L Troponin I (0.000-0.034) ng/mL NT-Pro-B Natriuret Pep pg/mL Total Protein 7.1 (6.3-8.2) g/dL Albumin 3.0 L (3.5-5.0) g/dL Coronavirus (PCR) (Not Detectd) 03/27/20 03/27/20 03/27/20 Range/Units 20:22 20:22 21:12 WBC (3.8-10.6) k/uL RBC (3.80-5.40) m/uL Hgb (11.4-16.0) gm/dL Hct (34.0-46.0) % MCV (80.0-100.0) fL MCH (25.0-35.0) pg MCHC (31.0-37.0) g/dL RDW (11.5-15.5) % Plt Count (150-450) k/uL Neutrophils % % Lymphocytes % % Monocytes % % Eosinophils % % Basophils % % Neutrophils # (1.3-7.7) k/uL Lymphocytes # (1.0-4.8) k/uL Monocytes # (0-1.0) k/uL Eosinophils # (0-0.7) k/uL Basophils # (0-0.2) k/uL Manual Slide Review Hypochromasia Poikilocytosis (manual Anisocytosis Macrocytosis Target Cells PT (9.0-12.0) sec INR (<1.2) APTT (22.0-30.0) sec Sample Site ABG pH (7.35-7.45) ABG pCO2 (35-45) mmHg ABG pO2 (83-108) mmHg ABG HCO3 (21-25) mmol/L ABG Total CO2 (19-24) mmol/L ABG O2 Saturation (94-97) % ABG Base Excess mmol/L Shamir Test FiO2 % Sodium (137-145) mmol/L Potassium (3.5-5.1) mmol/L Chloride (98-107) mmol/L Carbon Dioxide (22-30) mmol/L Anion Gap mmol/L BUN (7-17) mg/dL Creatinine (0.52-1.04) mg/dL Est GFR (CKD-EPI)AfAm (>60 ml/min/1.73 sqM) Est GFR (CKD-EPI)NonAf (>60 ml/min/1.73 sqM) Glucose (74-99) mg/dL Plasma Lactic Acid Zaid (0.7-2.0) mmol/L Calcium (8.4-10.2) mg/dL Magnesium (1.6-2.3) mg/dL Total Bilirubin (0.2-1.3) mg/dL AST (14-36) U/L ALT (4-34) U/L Alkaline Phosphatase (38-126) U/L Troponin I <0.012 (0.000-0.034) ng/mL NT-Pro-B Natriuret Pep 2650 pg/mL Total Protein (6.3-8.2) g/dL Albumin (3.5-5.0) g/dL Coronavirus (PCR) Not Detected (Not Detectd) 03/27/20 03/27/20 Range/Units 21:53 23:12 WBC 7.6 (3.8-10.6) k/uL RBC 2.46 L (3.80-5.40) m/uL Hgb 8.9 L (11.4-16.0) gm/dL Hct 26.8 L (34.0-46.0) % MCV 109.0 H (80.0-100.0) fL MCH 36.1 H (25.0-35.0) pg MCHC 33.1 (31.0-37.0) g/dL RDW 17.2 H (11.5-15.5) % Plt Count 47 L (150-450) k/uL Neutrophils % 86 % Lymphocytes % 5 % Monocytes % 4 % Eosinophils % 3 % Basophils % 0 % Neutrophils # 6.6 (1.3-7.7) k/uL Lymphocytes # 0.4 L (1.0-4.8) k/uL Monocytes # 0.3 (0-1.0) k/uL Eosinophils # 0.2 (0-0.7) k/uL Basophils # 0.0 (0-0.2) k/uL Manual Slide Review Performed Hypochromasia Moderate Poikilocytosis (manual Present Anisocytosis Slight Macrocytosis Marked A Target Cells Present PT (9.0-12.0) sec INR (<1.2) APTT (22.0-30.0) sec Sample Site R Rad ABG pH 7.42 (7.35-7.45) ABG pCO2 46 H (35-45) mmHg ABG pO2 111 H (83-108) mmHg ABG HCO3 30 H (21-25) mmol/L ABG Total CO2 32 H (19-24) mmol/L ABG O2 Saturation 98.9 H (94-97) % ABG Base Excess 5.9 mmol/L Shamir Test Yes FiO2 45 % Sodium (137-145) mmol/L Potassium (3.5-5.1) mmol/L Chloride (98-107) mmol/L Carbon Dioxide (22-30) mmol/L Anion Gap mmol/L BUN (7-17) mg/dL Creatinine (0.52-1.04) mg/dL Est GFR (CKD-EPI)AfAm (>60 ml/min/1.73 sqM) Est GFR (CKD-EPI)NonAf (>60 ml/min/1.73 sqM) Glucose (74-99) mg/dL Plasma Lactic Acid Zaid (0.7-2.0) mmol/L Calcium (8.4-10.2) mg/dL Magnesium (1.6-2.3) mg/dL Total Bilirubin (0.2-1.3) mg/dL AST (14-36) U/L ALT (4-34) U/L Alkaline Phosphatase (38-126) U/L Troponin I (0.000-0.034) ng/mL NT-Pro-B Natriuret Pep pg/mL Total Protein (6.3-8.2) g/dL Albumin (3.5-5.0) g/dL Coronavirus (PCR) (Not Detectd) Critical Care Time Critical Care Time: Yes Total Critical Care Time: 33 <Narendra Gallardo - Last Filed: 03/27/20 23:00> Disposition <Narendra Gallardo - Last Filed: 03/27/20 23:00> Is patient prescribed a controlled substance at d/c from ED?: No Decision to Admit Reason: Admit from EC Decision Date: 03/27/20 Decision Time: 23:40 <Minh Ruth - Last Filed: 03/27/20 23:40> Clinical Impression: Congestive heart failure, HCAP (healthcare-associated pneumonia) Disposition: ADMITTED IP TO THIS HOSP Condition: Stable Referrals: Jason Weiss DO [Primary Care Provider] - 1-2 days
[2020-03-27] MEDS ORDERED: CEFEPIME 2 GM in SODIUM CHLORIDE 0.9% 100 ML IVPB ONE (23:00)
--- NOTE | 2020-03-27 23:02 | CT ---
EXAMINATION TYPE: CT brain wo con DATE OF EXAM: 03/27/2020 COMPARISON: 05/17/2019 HISTORY: ams Weakness CT DLP: 1105.4 mGycm Automated exposure control for dose reduction was used. Exam performed with no contrast. Ventricles have normal size. There is no mass effect nor midline shift. There is no sign of intracran ial hemorrhage. The calvarium is intact. There is no evidence of cerebral edema. IMPRESSION: Negative unenhanced head CT scan. No change.
--- NOTE | 2020-03-27 23:06 | CT ---
EXAMINATION TYPE: CT angio chest DATE OF EXAM: 03/27/2020 COMPARISON: None HISTORY: SOB CT DLP: 1025.5 mGycm Automated exposure control for dose reduction was used. CONTRAST: Performed with IV Contrast, patient injected with 80cc mL of Isovue 370. There are 3-D post processed images. There is patchy airspace consolidation in the mid and lower lung adame. Heart is enlarged. There is no pleural effusion. There is no mediastinal adenopathy. Thoracic aorta is atheromatous. There is no aneurysm or dissection. There are no hilar masses. Exam is limited by patient's size. I see no fillin g defects in the pulmonary arteries. The bony thorax is intact. There is spurring in the thoracic spi ne. There is no compression fracture. There is 15% wedging of L1 vertebral body that appears old. Upp er abdominal soft tissues are intact. IMPRESSION: Extensive pulmonary airspace edema is nonspecific. I would consider possibilities of congestive heart failure or RDS. There is no evidence of pulmonary embolism. Moderate cardiomegaly.
[2020-03-27 23:20] LABS: ABG Base Excess 5.9 mmol/L; ABG HCO3 30 mmol/L (21-25); ABG Oxygen Saturation 98.9 % (94-97); ABG PCO2 46 mmHg (35-45); ABG PH 7.42 (7.35-7.45); ABG PO2 111 mmHg (83-108); ABG TCO2 32 mmol/L (19-24); Allen Test Performed? Yes
[2020-03-27] MEDS ORDERED: AZITHROMYCIN 500 MG in SODIUM CHLORIDE 0.9% 250 ML IVPB STA (23:27)
[2020-03-27] MEDS ORDERED: NALOXONE 0.4 MG/ML 1 ML VIAL IV PRN (23:30)
[2020-03-27 23:46] LABS: Appearance,Urine Clear (Clear); Bilirubin,Urine Negative (Negative); Blood,Urine Negative (Negative); Color,Urine Light Yellow; Glucose,Urine (UA) Negative (Negative); Ketones,Urine Negative (Negative); Leukocyte Esterase,Urine Negative (Negative); Nitrite,Urine Negative (Negative); Protein,Urine Negative (Negative); Specific Gravity,Urine 1.014 (1.001-1.035); Urobilinogen,Urine <2.0 mg/dL (<2.0)
[2020-03-28] MEDS ORDERED: VANCOMYCIN 2,250 MG in SODIUM CHLORIDE 0.9% 500 ML 500 ML IVPB ONE ×2
[2020-03-28 06:50] LABS: Anisocytosis Slight; Basophils % (A) 0 %; Eosinophils # (A) 0.2 k/uL (0-0.7); Eosinophils % (A) 2 %; HCT 26.1 % (34.0-46.0); HGB 8.3 gm/dL (11.4-16.0); Hypochromasia Marked; Lymphocytes # (A) 0.9 k/uL (1.0-4.8); Lymphocytes % (A) 10 %; MCH 36.1 pg (25.0-35.0); MCHC 31.9 g/dL (31.0-37.0); MCV 113.1 fL (80.0-100.0); Macrocytosis Marked; Mean Platelet Volume 8.3; Monocytes # (A) 0.4 k/uL (0-1.0); Monocytes % (A) 4 %; Neutrophils # (A) 7.2 k/uL (1.3-7.7); Neutrophils % (A) 81 %; RBC 2.31 m/uL (3.80-5.40); RDW 17.5 % (11.5-15.5); WBC 8.9 k/uL (3.8-10.6)
[2020-03-28 07:06] LABS: INR 1.3 (<1.2)
[2020-03-28 07:27] LABS: Albumin 2.3 g/dL (3.5-5.0); Potassium 4.5 mmol/L (3.5-5.1); Total Protein 5.9 g/dL (6.3-8.2)
[2020-03-28 07:28] LABS: Calcium 7.8 mg/dL (8.4-10.2); Magnesium 1.5 mg/dL (1.6-2.3); Total Bilirubin 1.6 mg/dL (0.2-1.3)
[2020-03-28] MEDS: FUROSEMIDE 10 MG/ML 4 ML VIAL IV SCH ×2 (08:26→22:38)
[2020-03-28] MEDS: CEFEPIME 2 GM in SODIUM CHLORIDE 0.9% 100 ML IVPB SCH ×3 (08:27→23:08)
[2020-03-28 08:33] LABS: Platelet Count 36 k/uL (150-450)
[2020-03-28] MEDS ORDERED: NITROGLYCERIN SL TABS 0.4 MG TAB SUBLINGUAL PRN (09:49)
[2020-03-28] MEDS ORDERED: BISACODYL 10 MG SUPP RECTAL PRN (09:49)
[2020-03-28] MEDS ORDERED: IPRATROPIUM-ALBUTEROL 3 ML NEB INHALATION SCH (09:49)
[2020-03-28] MEDS ORDERED: NA PHOS,M-B/NA PHOS,DI-BA 133 ML ENEMA RECTAL PRN (09:49)
[2020-03-28] MEDS ORDERED: MAGNESIUM HYDROXIDE 2,400 MG/10 ML CUP PO PRN (09:49)
[2020-03-28] MEDS ORDERED: LACTASE 3000 UNIT PO PRN (09:49)
[2020-03-28] MEDS ORDERED: BENZOCAINE 20 % GEL 15 GM TUBE MM PRN (09:49)
[2020-03-28] MEDS ORDERED: NYSTATIN 100,000 UNIT/GM POWD 15 GM TOPICAL PRN (09:49)
[2020-03-28] MEDS ORDERED: SODIUM CHLORIDE 0.65% NASAL SPRAY 44 ML BTL NASAL PRN (09:49)
[2020-03-28] MEDS ORDERED: METHYL SALICYLATE/MENTHOL CREAM 5 OZ TOPICAL PRN (09:49)
--- NOTE | 2020-03-28 09:58 | ECHOF ---
Referral Reason:CHF MEASUREMENTS -------- HEIGHT: 160.0 cm WEIGHT: 127.5 kg BP: 112/89 RVIDd: 4.6 cm (< 3.3) IVSd: 1.1 cm (0.6 - 1.1) LVIDd: 5.2 cm (3.9 - 5.3) LVPWd: 1.2 cm (0.6 - 1.1) IVSs: 1.9 cm LVIDs: 3.0 cm LVPWs: 1.7 cm LA Diam: 4.0 cm (2.7 - 3.8) LAESV Index (A-L): 35.35 ml/m Ao Diam: 3.0 cm (2.0 - 3.7) AV Cusp: 1.9 cm (1.5 - 2.6) MV EXCURSION: 15.965 mm (> 18.000) MV EF SLOPE: 60 mm/s (70 - 150) EPSS: 0.5 cm MV E Magdy: 1.37 m/s MV DecT: 314 ms MV A Magdy: 1.20 m/s MV E/A Ratio: 1.15 AV maxP.06 mmHg AV meanP.75 mmHg RAP: 5.00 mmHg RVSP: 37.58 mmHg FINDINGS -------- Sinus rhythm. This was a technically difficult study with suboptimal apical views. The left ventricular size is normal. There is borderline concentric left ventricular hypertrophy. Overall left ventricular systolic function is normal with, an EF between 60 - 65 %. The right ventricle is severely enlarged. LA is moderately dilated 34-39 ml/m2 The right atrium is normal in size. 5.0mg of Lumason was utilized for enhancement of images There is mild aortic valve sclerosis. Peak/mean gradient across the Aortic Valve is 20.06mmHg / 9.7 5mmHg. The mitral valve leaflets are mildly thickened. Mild tricuspid regurgitation present. There is mild pulmonary hypertension. The right ventricular systolic pressure, as measured by Doppler, is 37.58mmHg. The pulmonic valve was not well visualized. The aortic root size is normal. IVC Not well visulized. There is no pericardial effusion. CONCLUSIONS -------- 1. Sinus rhythm. 2. This was a technically difficult study with suboptimal apical views. 3. The left ventricular size is normal. 4. There is borderline concentric left ventricular hypertrophy. 5. Overall left ventricular systolic function is normal with, an EF between 60 - 65 %. 6. The right ventricle is severely enlarged. 7. LA is moderately dilated 34-39 ml/m2 8. The right atrium is normal in size. 9. 5.0mg of Lumason was utilized for enhancement of images 10. There is mild aortic valve sclerosis. 11. Peak/mean gradient across the Aortic Valve is 20.06mmHg / 9.75mmHg. 12. The mitral valve leaflets are mildly thickened. 13. Mild tricuspid regurgitation present. 14. There is mild pulmonary hypertension. 15. The right ventricular systolic pressure, as measured by Doppler, is 37.58mmHg. 16. The pulmonic valve was not well visualized. 17. The aortic root size is normal. 18. IVC Not well visulized. 19. There is no pericardial effusion. ACCORDION TUNER: Citlaly Clement RDCS
[2020-03-28] MEDS: GABAPENTIN 100 MG CAP PO SCH ×3 (11:02→22:34)
[2020-03-28] MEDS: APIXABAN 5 MG TAB PO SCH ×2 (11:06→16:18)
[2020-03-28] MEDS: LORATADINE 10 MG TAB PO SCH (11:06)
[2020-03-28] MEDS: PANTOPRAZOLE 40 MG TABLET PO SCH (11:06)
[2020-03-28] MEDS: METOPROLOL TARTRATE 25 MG TAB PO SCH ×2 (11:06→21:17)
[2020-03-28] MEDS: ISOSORBIDE MONONITRATE ER 30 MG TAB.ER.24H PO SCH (11:06)
[2020-03-28] MEDS: ALLOPURINOL 100 MG TAB PO SCH (11:06)
[2020-03-28] MEDS: FERROUS SULFATE 325 MG TAB PO SCH (11:20)
[2020-03-28] MEDS: CARBIDOPA-LEVODOPA 25-250 MG 1 EACH TAB PO SCH ×2 (11:21→16:18)
[2020-03-28] MEDS: ESCITALOPRAM 20 MG TAB PO SCH (11:21)
[2020-03-28] MEDS ORDERED: VANCOMYCIN 2,000 MG in SODIUM CHLORIDE 0.9% 500 ML 500 ML IVPB SCH (12:00)
[2020-03-28] MEDS ORDERED: LACTASE 3000 UNIT PO SCH (12:00)
[2020-03-28] MEDS: ALBUTEROL HFA INHALER INHALATION SCH ×2 (12:04→20:50)
--- NOTE | 2020-03-28 12:52 | P.CRDCN ---
<Mikayla Polo - Last Filed: 03/28/20 11:15> History of Present Illness History of present illness: This is Mikayla Polo PA-C scribing on behalf of Dr. Hutchins The patient was interviewed and examined by Dr. Hutchins Emergency notes reviewed HPI Patient is a 69-year-old female with a history significant for CAD status post CABG, paroxysmal atrial fibrillation, status post permanent pacemaker implantat ion, chronic diastolic heart failure, COPD, KOFFI, dyslipidemia, and hypertension who presented from her local senior care facility with respiratory distress, AMS, bleeding from the mouth. On arrival to the emergency department her temperature was 100.7, respirations 30, blood pressure 77/82, pulse 83, oxygen saturation 96% on nonrebreather. Chest x-ray shows pulmonary edema and bilateral lower lobe pneumonia. Chest CT shows extensive pulmonary airspace edema, no evidence of pulmonary embolism. Brain CT is negative. EKG shows atrial paced rhythm. Labs significant for anemia, hemoglobin 8.9, troponin negative 1, proBNP 2650. Coronavirus negative.she was placed on BiPAP and started on a ntibiotics and IV lasix. Patient is still very short of breath today.remains on biPAP ROS: unable to obtain EXAMINATION: Temperature 99.4F, pulse 60, respirations 20, blood pressure 121/55, oxygen saturation 98% heart sounds are soft, regular lungs are diminished bilaterally unable to assess JVD due to body habitus mild edema bilaterally REVIEW OF LABS, ECG & MEDICAL DATA WBC 8.9, hemoglobin 8.3, platelets 36, potassium 4.5, BUN 31, creatinine 1.12, Magnesium 1.5 Troponin negative 1 BNP 2650 Previous echocardiogram in April 2019 shows EF 55-60% IMPRESSION / ASSESSMENT: Dyspnea secondary to CHF exacerbation versus pneumonia CAD status post CABG Paroxysmal atrial fibrillation, anticoagulated with eliquis Status post permanent pacemaker implantation Acute on chronic diastolic heart failure, previous echocardiogram shows preserved LV systolic function COPD KOFFI Dyslipidemia Hypertension PLAN: Echocardiogram has been ordered, awaiting results continue diuretics daily weights, intake and output Monitor renal function and electrolytes management of electrolyte abnormalities per primary care team Past Medical History Past Medical History: Blood Disorder, Osteoarthritis (OA), Renal Disease Additional Past Medical History / Comment(s): Chronic low back pain which radiates down bilateral legs, lumbar disc disease, spondylosis, lumbar compression fracture, myofascial pain syndrome,migraines, gout bilateral feet, osteoporosis, frequent falls, chronic urine retention/incontinence/has bladder stimulator, 1972 R renal cancer with nephrectomy, anemia, cardiac murmur, home oxygen at 2-3L/NC ATC, KOFFI but device is broken, vertigo, narcolepsy, IBS, pt currently at [facility] for rehab pt currently has 2 impacted teeth taking antibiotics to have removed thursday Last Myocardial Infarction Date:: 2004 History of Any Multi-Drug Resistant Organisms: None Reported Past Surgical History: Appendectomy, Coronary Bypass/CABG, Heart Cathet erization, Orthopedic Surgery, Pacemaker Additional Past Surgical History / Comment(s): Rt nephrectomy, lumber epidural injections-last one 03/07/19, bladder stimulator, fabricio carpal tunnel releases, surgery on left hand, 1 vessel CABG 2004, fabricio cataracts with lens implants, col onoscopy. Past Anesthesia/Blood Transfusion Reactions: Previous Problems w/ Anesthesia Additional Past Anesthesia/Blood Transfusion Reaction / Comment(s): Pt has received blood in past without reaction. Type of Cardiac Device: Permanent Pacemaker Device Placement Date:: 2006 Smoking Status: Never smoker - Past Family History Mother Family Medical History: Diabetes Mellitus, Hypertension, Renal Disease Father Additional Family Medical History / Comment(s): Father comitted suicide. Family Family Medical History: Coronary Artery Disease (CAD) Medications and Allergies Home Medications Medication Instructions Recorded Confirmed Type Allopurinol [Zyloprim] 100 mg PO DAILY@0800 02/03/19 03/27/20 History Carbidopa/Levodopa [Sinemet 25-250 1 tab PO BID@0800,1700 02/03/19 03/27/20 History mg] Escitalopram [Lexapro] 20 mg PO DAILY@0800 02/03/19 03/27/20 History Isosorbide Mononitrate ER [Imdur] 30 mg PO DAILY@0800 02/03/19 03/27/20 History Ferrous Sulfate [Iron] 325 mg PO DAILY@0800 03/01/19 03/27/20 History Nitroglycerin Sl Tabs [Nitrostat] 0.4 mg SL Q5M PRN 03/01/19 03/27/20 History Atorvastatin [Lipitor] 40 mg PO DAILY@1700 05/15/19 03/27/20 History Bisacodyl [Dulcolax] 10 mg RECTAL DAILY PRN 05/15/19 03/27/20 History Furosemide [Lasix] 20 mg PO DAILY@0800 07/05/19 03/27/20 History Ipratropium-Albuterol Nebulize 3 ml INHALATION RT-TID 07/05/19 03/27/20 History [Duoneb 0.5 mg-3 mg/3 ml Soln] Modafinil [Provigil] 100 mg PO DAILY@0800 08/02/19 03/27/20 History Apixaban [Eliquis] 5 mg PO BID@0800,1700 08/08/19 03/27/20 History rOPINIRole HCL [Requip] 2 mg PO TID@0800,1700,2100 08/08/19 03/27/20 History traZODone HCL 50 mg PO HS@209908/08/19 03/27/20 History Magnesium Hydroxide [Milk of 30 ml PO Q48H PRN 09/07/19 03/27/20 History Magnesia Concentrate] Gabapentin [Neurontin] 100 mg PO TID 10/07/19 03/27/20 History Benzocaine 20 % Gel [Orajel] 1 applic PO DAILY PRN 11/11/19 03/27/20 History Menthol [Biofreeze] 1 applic TOPICAL DAILY PRN 11/11/19 03/27/20 History Na Phos,M-B/Na Phos,Di-Ba [Fleet 133 ml RECTAL DAILY PRN 11/11/19 03/27/20 History Adult] Nystatin 100,000 Unit/gm Powd 1 applic TOPICAL Q8H PRN 11/11/19 03/27/20 History [Mycostatin Powder] HYDROcodone/APAP 10-325MG [[place] 1 tab PO Q6H PRN 12/29/19 03/27/20 History 10-325] Lactase [Lactaid] 3,000 unit PO TID@0800,1200,1700 01/26/20 03/27/20 History Metoprolol Tartrate 25 mg PO TID@0800,1200,2000 01/26/20 03/27/20 History Caldesene Baby Powder 1 applic TOPICAL BID 03/27/20 03/27/20 History Fexofenadine HCl 180 mg PO DAILY 03/27/20 03/27/20 History HYDROcodone/APAP 10-325MG [[place] 1 tab PO BID@0800,1700 03/27/20 03/27/20 History 10-325] Lactase [Lactaid] 3,000 unit PO DAILY PRN 03/27/20 03/27/20 History Omeprazole 40 mg PO DAILY@0700 03/27/20 03/27/20 History Sodium Chloride [Mower] 1 spray EA NOSTRIL Q8H PRN 03/27/20 03/27/20 History Allergies Allergy/AdvReac Type Severity Reaction Status Date / Time adhesive tape Allergy skin peels Verified 03/27/20 21:00 off Sulfa (Sulfonamide Allergy Unknown Verified 03/27/20 21:00 Antibiotics) Fish Containing Products AdvReac Nausea Verified 03/27/20 21:00 [Fish] Physical Exam Vitals: Vital Signs Temp Pulse Pulse Resp BP BP Pulse Ox 03/28/20 08:00 99.4 F 60 20 121/55 98 03/28/20 04:00 98.2 F 78 18 112/89 95 03/28/20 01:03 98.4 F 79 20 117/93 100 03/27/20 23:40 62 17 98/73 96 03/27/20 23:30 65 17 90 L 03/27/20 23:10 63 21 102/64 99 03/27/20 23:00 60 18 107/56 100 03/27/20 22:40 103/60 03/27/20 22:30 60 18 94/37 96 03/27/20 22:23 98 03/27/20 22:20 61 16 94/37 62 L 03/27/20 22:10 29 H 96 03/27/20 22:00 60 22 72/35 98 03/27/20 21:50 60 19 97 03/27/20 20:52 38 H 03/27/20 20:39 30 H 03/27/20 20:25 100.7 F H 83 30 H 97/82 96 Intake and Output 03/27/20 03/28/20 03/28/20 22:59 06:59 14:59 Intake Total 30 30 Output Total 240 500 Balance 30 -210 -500 Intake: IV 30 30 Invasive Line 1 20 20 Invasive Line 2 10 10 Output: Urine 240 500 Other: Weight 129 kg 127.5 kg Results 03/28/20 06:00 03/28/20 06:00 Cardiac Enzymes 03/27/20 03/27/20 03/28/20 Range/Units 20:22 20:22 06:00 AST 36 30 (14-36) U/L Troponin I <0.012 (0.000-0.034) ng/mL Coagulation 03/27/20 03/28/20 Range/Units 20:22 06:00 PT 11.7 13.0 H (9.0-12.0) sec APTT 26.2 (22.0-30.0) sec CBC 03/27/20 03/28/20 Range/Units 21:53 06:00 WBC 7.6 8.9 (3.8-10.6) k/uL RBC 2.46 L 2.31 L (3.80-5.40) m/uL Hgb 8.9 L 8.3 L (11.4-16.0) gm/dL Hct 26.8 L 26.1 L (34.0-46.0) % Plt Count 47 L 36 L (150-450) k/uL Comprehensive Metabolic Panel 03/27/20 03/28/20 Range/Units 20:22 06:00 Sodium 142 141 (137-145) mmol/L Potassium 4.3 4.5 (3.5-5.1) mmol/L Chloride 106 109 H (98-107) mmol/L Carbon Dioxide 31 H 26 (22-30) mmol/L BUN 27 H 31 H (7-17) mg/dL Creatinine 1.02 1.12 H (0.52-1.04) mg/dL Glucose 98 80 (74-99) mg/dL Calcium 8.2 L 7.8 L (8.4-10.2) mg/dL AST 36 30 (14-36) U/L ALT <6 7 (4-34) U/L Alkaline Phosphatase 230 H 159 H (38-126) U/L Total Protein 7.1 5.9 L (6.3-8.2) g/dL Albumin 3.0 L 2.3 L (3.5-5.0) g/dL Current Medications Generic Name Dose Route Start Last Admin Trade Name Freq PRN Reason Stop Dose Admin Furosemide 40 mg 03/28/20 09:00 03/28/20 08:26 Lasix IV 40 mg Q12HR HI Administration Sodium Chloride 1,000 mls @ 20 mls/hr 03/27/20 20:29 03/27/20 21:06 Saline 0.9% IV 03/28/20 20:28 20 mls/hr .Q24H STA Administration Cefepime HCl 2 gm/ Sodium 100 mls @ 200 mls/hr 03/28/20 08:00 03/28/20 08:27 Chloride IVPB 200 mls/hr Q8H HI Administration Vancomycin HCl 2,000 mg/ 500 mls @ 167 mls/hr 03/28/20 12:00 Sodium Chloride IVPB Q24H HI Naloxone HCl 0.2 mg 03/27/20 23:30 Narcan IV Q2M PRN Opioid Reversal Intake and Output 03/27/20 03/28/20 03/28/20 22:59 06:59 14:59 Intake Total 30 30 Output Total 240 500 Balance 30 -210 -500 Intake: IV 30 30 Invasive Line 1 20 20 Invasive Line 2 10 10 Output: Urine 240 500 Other: Weight 129 kg 127.5 kg 03/28/20 06:00 03/28/20 06:00 <Jaya Hutchins - Last Filed: 03/28/20 12:52> Physical Exam Vitals: Vital Signs Temp Pulse Pulse Resp BP BP Pulse Ox 03/28/20 11:38 98.4 F 60 20 110/58 94 L 03/28/20 08:00 99.4 F 60 20 121/55 98 03/28/20 04:00 98.2 F 78 18 112/89 95 03/28/20 01:03 98.4 F 79 20 117/93 100 03/27/20 23:40 62 17 98/73 96 03/27/20 23:30 65 17 90 L 03/27/20 23:10 63 21 102/64 99 03/27/20 23:00 60 18 107/56 100 03/27/20 22:40 103/60 03/27/20 22:30 60 18 94/37 96 03/27/20 22:23 98 03/27/20 22:20 61 16 94/37 62 L 03/27/20 22:10 29 H 96 03/27/20 22:00 60 22 72/35 98 03/27/20 21:50 60 19 97 03/27/20 20:52 38 H 04/28/20 20:39 30 H 03/27/20 20:25 100.7 F H 83 30 H 97/82 96 Intake and Output 03/27/20 03/28/20 03/28/20 22:59 06:59 14:59 Intake Total 30 30 60 Output Total 240 825 Balance 30 210 765 Intake: IV 30 30 60 Invasive Line 1 20 20 40 Invasive Line 2 10 10 20 Output: Urine 240 825 Other: Voiding Method Indwelling Catheter Weight 129 kg 127.5 kg Results 03/28/20 06:00 03/28/20 06:00 Cardiac Enzymes 03/27/20 03/27/20 03/28/20 Range/Units 20:22 20:22 06:00 AST 36 30 (14-36) U/L Troponin I <0.012 (0.000-0.034) ng/mL Coagulation 03/27/20 03/28/20 Range/Units 20:22 06:00 PT 11.7 13.0 H (9.0-12.0) sec APTT 26.2 (22.0-30.0) sec CBC 03/27/20 03/28/20 Range/Units 21:53 06:00 WBC 7.6 8.9 (3.8-10.6) k/uL RBC 2.46 L 2.31 L (3.80-5.40) m/uL Hgb 8.9 L 8.3 L (11.4-16.0) gm/dL Hct 26.8 L 26.1 L (34.0-46.0) % Plt Count 47 L 36 L (150-450) k/uL Comprehensive Metabolic Panel 03/27/20 03/28/20 Range/Units 20:22 06:00 Sodium 142 141 (137-145) mmol/L Potassium 4.3 4.5 (3.5-5.1) mmol/L Chloride 106 109 H (98-107) mmol/L Carbon Dioxide 31 H 26 (22-30) mmol/L BUN 27 H 31 H (7-17) mg/dL Creatinine 1.02 1.12 H (0.52-1.04) mg/dL Glucose 98 80 (74-99) mg/dL Calcium 8.2 L 7.8 L (8.4-10.2) mg/dL AST 36 30 (14-36) U/L ALT <6 7 (4-34) U/L Alkaline Phosphatase 230 H 159 H (38-126) U/L Total Protein 7.1 5.9 L (6.3-8.2) g/dL Albumin 3.0 L 2.3 L (3.5-5.0) g/dL Current Medications Generic Name Dose Route Start Last Admin Trade Name Freq PRN Reason Stop Dose Admin Hydrocodone Bitart/Acetaminophen 1 each 03/28/20 09:49 [place] 10 PO Q6H PRN Pain Hydrocodone Bitart/Acetaminophen 1 each 03/28/20 17:00 [place] 10 PO BID@0800,1700 [facility] Albuterol Sulfate 2 puff 03/28/20 13:00 03/28/20 12:04 Ventolin Hfa Inhaler INHALATION 2 puff RT-TID [facility] Administration Allopurinol 100 mg 03/28/20 10:30 03/28/20 11:06 Zyloprim PO 100 mg DAILY@0800 [facility] Administration Apixaban 5 mg 03/28/20 10:30 03/28/20 11:06 Eliquis PO 5 mg BID@0800,1700 [facility] Administration Atorvastatin Calcium 40 mg 03/28/20 17:00 Lipitor PO DAILY@1700 [facility] Benzocaine 1 gm 03/28/20 09:49 Orajel MM DAILY PRN broken&missing teeth pain Bisacodyl 10 mg 03/28/20 09:49 Dulcolax RECTAL DAILY PRN Constipation Carbidopa/Levodopa 1 each 03/28/20 10:30 03/28/20 11:21 Sinemet 25-250 PO 1 each BID@0800,1700 [facility] Administration Escitalopram Oxalate 20 mg 03/28/20 10:30 03/28/20 11:21 Lexapro PO 20 mg DAILY@0800 [facility] Administration Ferrous Sulfate 325 mg 03/28/20 10:30 03/28/20 11:20 Feosol PO 325 mg DAILY@0800 [facility] Administration Furosemide 40 mg 03/28/20 09:00 03/28/20 08:26 Lasix IV 40 mg Q12HR HI Administration Gabapentin 100 mg 03/28/20 10:00 03/28/20 11:02 Neurontin PO 100 mg TID [facility] Administration Sodium Chloride 1,000 mls @ 20 mls/hr 03/27/20 20:29 03/27/20 21:06 Saline 0.9% IV 03/28/20 20:28 20 mls/hr .Q24H STA Administration Cefepime HCl 2 gm/ Sodium 100 mls @ 200 mls/hr 03/28/20 08:00 03/28/20 08:27 Chloride IVPB 200 mls/hr Q8H HI Administration Vancomycin HCl 2,000 mg/ 500 mls @ 167 mls/hr 03/28/20 12:00 03/28/20 11:08 Sodium Chloride IVPB 167 mls/hr Q24H HI Administration Isosorbide Mononitrate 30 mg 03/28/20 10:30 03/28/20 11:06 Imdur PO 30 mg DAILY@0800 HI Administration Loratadine 10 mg 03/28/20 10:30 03/28/20 11:06 Claritin PO 10 mg DAILY HI Administration Magnesium Hydroxide 2,400 mg 03/28/20 09:49 Milk Of Magnesia PO Q48H PRN Constipation Methyl Salicylate 1 applic 03/28/20 09:49 Thera-Gesic Cream TOPICAL DAILY PRN lower back pain Metoprolol Tartrate 25 mg 03/28/20 11:00 03/28/20 11:06 Lopressor PO 25 mg TID@0800,1200,2000 [facility] Administration Modafinil 100 mg 03/28/20 10:30 Provigil PO DAILY@0800 [facility] Naloxone HCl 0.2 mg 03/27/20 23:30 Narcan IV Q2M PRN Opioid Reversal Nitroglycerin 0.4 mg 03/28/20 09:49 Nitrostat SUBLINGUAL Q5M PRN Chest Pain Nystatin 1 applic 03/28/20 09:49 Mycostatin Powder TOPICAL Q8H PRN under breasts/groin Pantoprazole Sodium 40 mg 03/28/20 10:30 03/28/20 11:06 Protonix PO 40 mg DAILY@0700 HI Administration Ropinirole HCl 2 mg 03/28/20 10:30 03/28/20 11:06 Requip PO 2 mg TID@0800,1700,2100 HI Administration Sodium Biphosphate/Sodium Phosphate 133 ml 03/28/20 09:49 [place] Adult RECTAL DAILY PRN Constipation Sodium Chloride 1 spray 03/28/20 09:49 [place] NASAL Q8H PRN dry nose Trazodone HCl 50 mg 03/28/20 21:00 Desyrel PO HS@2100 HI Intake and Output 03/27/20 03/28/20 03/28/20 22:59 06:59 14:59 Intake Total 30 30 60 Output Total 240 825 Balance 07 -434 -661 Intake: IV 30 30 60 Invasive Line 1 20 20 40 Invasive Line 2 10 10 20 Output: Urine 240 825 Other: Voiding Method Indwelling Catheter Weight 129 kg 127.5 kg 03/28/20 06:00 03/28/20 06:00
--- NOTE | 2020-03-28 13:22 | P.CNPUL ---
History of Present Illness Consult date: 03/28/20 Requesting physician: Narendra Gallardo Reason for consult: dyspnea, hypoxemia Chief complaint: Altered mental status History of present illness: 69-year-old white female patient of resident of a local [facility] with past medical history of CAD status post bypass grafting, obstructive sleep apnea on CPAP therapy and home oxygen, history of COPD, narcolepsy, chronic kidney disease with history of previous nephrectomy and bladder stimulator placement. Other history includes chronic back pain, frequent falls, osteoporosis, paroxysmal atrial fibrillation. Patient was brought into the hospital per EMS on 03/27/2020 for evaluation of altered mental status, shortness of breath and some oral cavity bleeding. Patient was very confused, agitated, tachypneic, and had some dried blood around the lips. She is a poor historian, she did have low-grade fever with a temp of 100.7F, she was tachypneic, she was placed on BiPAP support. ABG was obtained showing pO2 111, pCO2 46, pH of 7.42, mild CO2 retention, was done on FiO2 of 45%. White blood cell count was within normal limits at 7.6, hemoglobin was 8.9, INR was 1.2, sodium is 142, potassium is 4.3, chloride is 106, CO2 31, BUN was 27, creatinine is 1.02, plasma lactic acid was normal at 1.7, troponin was less than 0.012, proBNP was 2650. Carvajal virus PCR was negative, urinalysis was negative for any sign of infection. Chest x-ray showed cardiomegaly, pulmonary edema, bilateral airspace infiltrates in the lower lobes, presence of a left axillary pacemaker. Brain CT showed no intracranial abnormality. CT angiogram of the chest showed extensive pulmonary airspace edema, with the possibility of CHF or ARDS, no evidence of pulmonary embolism. Patient is already on Eliquis for history of paroxysmal atrial fibrillation. She was hypotensive in the emergency department with a blood pressure as low as 72/35 on presentation, which seems to have recovered, lactic acid is within normal limits, she was started on empiric antibiotics, Cefepime and Vancomycin, Protonix at the level is pending, blood cultures have been sent Review of Systems All systems: negative Constitutional: Reports lethargy, Denies chills, Denies fever Eyes: denies blurred vision, denies pain Ears, nose, mouth and throat: Denies headache, Denies sore throat Cardiovascular: Denies chest pain, Denies shortness of breath Respiratory: Reports dyspnea, Denies cough Gastrointestinal: Denies abdominal pain, Denies diarrhea, Denies nausea, Denies vomiting Genitourinary: Denies dysuria, Denies hematuria Musculoskeletal: Denies myalgias Integumentary: Denies pruritus, Denies rash Neurological: Reports change in mentation, Denies numbness, Denies weakness Psychiatric: Denies anxiety, Denies depression Endocrine: Denies fatigue, Denies weight change Past Medical History Past Medical History: Blood Disorder, Osteoarthritis (OA), Renal Disease Additional Past Medical History / Comment(s): Chronic low back pain which radiates down bilateral legs, lumbar disc disease, spondylosis, lumbar compression fracture, myofascial pain syndrome,migraines, gout bilateral feet, osteoporosis, frequent falls, chronic urine retention/incontinence/has bladder stimulator, 1972 R renal cancer with nephrectomy, anemia, cardiac murmur, home oxygen at 2-3L/NC ATC, KOFFI but device is broken, vertigo, narcolepsy, IBS, pt currently at [facility] for rehab pt currently has 2 impacted teeth taking antibiotics to have removed thursday Last Myocardial Infarction Date:: 2004 History of Any Multi-Drug Resistant Organisms: None Reported Past Surgical History: Appendectomy, Coronary Bypass/CABG, Heart Catheterization, Orthopedic Surgery, Pacemaker Additional Past Surgical History / Comment(s): Rt nephrectomy, lumber epidural injections-last one 03/07/19, bladder stimulator, fabricio carpal tunnel releases, surgery on left hand, 1 vessel CABG 2004, fabricio cataracts with lens implants, colonoscopy. Past Anesthesia/Blood Transfusion Reactions: Previous Problems w/ Anesthesia Additional Past Anesthesia/Blood Transfusion Reaction / Comment(s): Pt has received blood in past without reaction. Type of Cardiac Device: Permanent Pacemaker Device Placement Date:: 2006 Smoking Status: Never smoker - Past Family History Mother Family Medical History: Diabetes Mellitus, Hypertension, Renal Disease Father Additional Family Medical History / Comment(s): Father comitted suicide. Family Family Medical History: Coronary Artery Disease (CAD) Medications and Allergies Home Medications Medication Instructions Recorded Confirmed Type Allopurinol [Zyloprim] 100 mg PO DAILY@0800 02/03/19 03/27/20 History Carbidopa/Levodopa [Sinemet 25-250 1 tab PO BID@0800,1700 02/03/19 03/27/20 History mg] Escitalopram [Lexapro] 20 mg PO DAILY@0800 02/03/19 03/27/20 History Isosorbide Mononitrate ER [Imdur] 30 mg PO DAILY@0800 02/03/19 03/27/20 History Ferrous Sulfate [Iron] 325 mg PO DAILY@0800 03/01/19 03/27/20 History Nitroglycerin Sl Tabs [Nitrostat] 0.4 mg SL Q5M PRN 03/01/19 03/27/20 History Atorvastatin [Lipitor] 40 mg PO DAILY@1700 05/15/19 03/27/20 History Bisacodyl [Dulcolax] 10 mg RECTAL DAILY PRN 05/15/19 03/27/20 History Furosemide [Lasix] 20 mg PO DAILY@0800 07/05/19 03/27/20 History Ipratropium-Albuterol Nebulize 3 ml INHALATION RT-TID 07/05/19 03/27/20 History [Duoneb 0.5 mg-3 mg/3 ml Soln] Modafinil [Provigil] 100 mg PO DAILY@0800 08/02/19 03/27/20 History Apixaban [Eliquis] 5 mg PO BID@0800,1700 08/08/19 03/27/20 History rOPINIRole HCL [Requip] 2 mg PO TID@0800,1700,209908/08/19 03/27/20 History traZODone HCL 50 mg PO HS@209908/08/19 03/27/20 History Magnesium Hydroxide [Milk of 30 ml PO Q48H PRN 09/07/19 03/27/20 History Magnesia Concentrate] Gabapentin [Neurontin] 100 mg PO TID 10/07/19 03/27/20 History Benzocaine 20 % Gel [Orajel] 1 applic PO DAILY PRN 11/11/19 03/27/20 History Menthol [Biofreeze] 1 applic TOPICAL DAILY PRN 11/11/19 03/27/20 History Na Phos,M-B/Na Phos,Di-Ba [Fleet 133 ml RECTAL DAILY PRN 11/11/19 03/27/20 History Adult] Nystatin 100,000 Unit/gm Powd 1 applic TOPICAL Q8H PRN 11/11/19 03/27/20 History [Mycostatin Powder] HYDROcodone/APAP 10-325MG [[place] 1 tab PO Q6H PRN 12/29/19 03/27/20 History 10-325] Lactase [Lactaid] 3,000 unit PO TID@0800,1200,1700 01/26/20 03/27/20 History Metoprolol Tartrate 25 mg PO TID@0800,1200,2000 01/26/20 03/27/20 History Caldesene Baby Powder 1 applic TOPICAL BID 03/27/20 03/27/20 History Fexofenadine HCl 180 mg PO DAILY 03/27/20 03/27/20 History HYDROcodone/APAP 10-325MG [[place] 1 tab PO BID@0800,1700 03/27/20 03/27/20 His tory 10-325] Lactase [Lactaid] 3,000 unit PO DAILY PRN 03/27/20 03/27/20 History Omeprazole 40 mg PO DAILY@0700 03/27/20 03/27/20 History Sodium Chloride [[place]] 1 spray EA NOSTRIL Q8H PRN 03/27/20 03/27/20 History Allergies Allergy/AdvReac Type Severity Reaction Status Date / Time adhesive tape Allergy skin peels Verified 03/27/20 21:00 off Sulfa (Sulfonamide Allergy Unknown Verified 03/27/20 21:00 Antibiotics) Fish Containing Products AdvReac Nausea Verified 03/27/20 21:00 [Fish] Physical Exam Vitals: Vital Signs Temp Pulse Pulse Resp BP BP Pulse Ox 03/28/20 11:38 98.4 F 60 20 110/58 94 L 03/28/20 08:00 99.4 F 60 20 121/55 98 03/28/20 04:00 98.2 F 78 18 112/89 95 03/28/20 01:03 98.4 F 79 20 117/93 100 03/27/20 23:40 62 17 98/73 96 03/27/20 23:30 65 17 90 L 03/27/20 23:10 63 21 102/64 99 03/27/20 23:00 60 18 107/56 100 03/27/20 22:40 103/60 03/27/20 22:30 60 18 94/37 96 03/27/20 22:23 98 03/27/20 22:20 61 16 94/37 62 L 03/27/20 22:10 29 H 96 03/27/20 22:00 60 22 72/35 98 03/27/20 21:50 60 19 97 03/27/20 20:52 38 H 03/27/20 20:39 30 H 03/27/20 20:25 100.7 F H 83 30 H 97/82 96 Intake and Output 03/27/20 03/28/20 03/28/20 22:59 06:59 14:59 Intake Total 30 30 60 Output Total 240 825 Balance 30 210 5 Intake: IV 30 30 60 Invasive Line 1 20 20 40 Invasive Line 2 10 10 20 Output: Urine 240 825 Other: Voiding Method Indwelling Catheter Weight 129 kg 127.5 kg GENERAL EXAM: Somnolent, but arousable, 69-year-old morbidly obese female currently on BiPAP support with pressures of 14/7, FiO2 of 45%, fairly comfortable in no apparent distress, patient is responding appropriately to questions she is oriented to person and place. HEAD: Normocephalic/atraumatic. EYES: Normal reaction of pupils, equal size. Conjunctiva pink, sclera white. NOSE: Clear with pink turbinates. THROAT: No erythema or exudates. NECK: No masses, no JVD, no thyroid enlargement, no adenopathy. CHEST: No chest wall deformity. Symmetrical expansion. LUNGS: Equal air entry with no crackles, wheeze, rhonchi or dullness. CVS: Regular rate and rhythm, normal S1 and S2, no gallops, no murmurs, no rubs ABDOMEN: Soft, nontender. No hepatosplenomegaly, normal bowel sounds, no guarding or rigidity. EXTREMITIES: No clubbing, 1+ lower extremity edema, no cyanosis, 2+ pulses and upper and lower extremities. Her lower extremities are positive for chronic venous stasis changes MUSCULOSKELETAL: Muscle strength and tone normal. SPINE: No scoliosis or deformity SKIN: No rashes CENTRAL NERVOUS SYSTEM: Alert and oriented -3. No focal deficits, tone is normal in all 4 extremities. PSYCHIATRIC: Alert and oriented -3. Appropriate affect. Intact judgment and insight. Results - Laboratory Findings CBC and BMP: 03/28/20 06:00 03/28/20 06:00 ABG ABG pH 7.42 (7.35-7.45) 03/27/20 23:12 ABG pCO2 46 mmHg (35-45) H 03/27/20 23:12 ABG pO2 111 mmHg (83-108) H 03/27/20 23:12 ABG O2 Saturation 98.9 % (94-97) H 03/27/20 23:12 PT/INR, D-dimer PT 13.0 sec (9.0-12.0) H 03/28/20 06:00 INR 1.3 (<1.2) H 03/28/20 06:00 Abnormal lab findings: Abnormal Labs 03/27/20 03/27/20 03/27/20 20:22 20:22 21:53 RBC 2.46 L Hgb 8.9 L Hct 26.8 L MCV 109.0 H MCH 36.1 H RDW 17.2 H Plt Count 47 L Lymphocytes # 0.4 L Macrocytosis Marked A PT INR 1.2 H ABG pCO2 ABG pO2 ABG HCO3 ABG Total CO2 ABG O2 Saturation Chloride Carbon Dioxide 31 H BUN 27 H Creatinine Calcium 8.2 L Magnesium Total Bilirubin Alkaline Phosphatase 230 H Total Protein Albumin 3.0 L 03/27/20 03/28/20 03/28/20 23:12 06:00 06:00 RBC 2.31 L Hgb 8.3 L Hct 26.1 L MCV 113.1 H MCH 36.1 H RDW 17.5 H Plt Count 36 L Lymphocytes # 0.9 L Macrocytosis Marked A PT 13.0 H INR 1.3 H ABG pCO2 46 H ABG pO2 111 H ABG HCO3 30 H ABG Total CO2 32 H ABG O2 Saturation 98.9 H Chloride Carbon Dioxide BUN Creatinine Calcium Magnesium Total Bilirubin Alkaline Phosphatase Total Protein Albumin 03/28/20 06:00 RBC Hgb Hct MCV MCH RDW Plt Count Lymphocytes # Macrocytosis PT INR ABG pCO2 ABG pO2 ABG HCO3 ABG Total CO2 ABG O2 Saturation Chloride 109 H Carbon Dioxide BUN 31 H Creatinine 1.12 H Calcium 7.8 L Magnesium 1.5 L Total Bilirubin 1.6 H Alkaline Phosphatase 159 H Total Protein 5.9 L Albumin 2.3 L - Diagnostic Findings Chest x-ray: report reviewed, image reviewed Additional studies: CTA chest, brain CT, EKG, echocardiogram results are reviewed Assessment and Plan Plan: Assessment: #1. Acute on chronic hypoxemic respiratory failure multifactorial, likely related to possibility of pneumonia, and acute exacerbation of CHF with diastolic dysfunction. Chest x-ray showed bilateral airspace infiltrates in the bilateral lower lobes, CTA chest showed no evidence of pulmonary embolism, but did show extensive pulmonary airspace edema/infiltrates bilaterally. COVID 19 PCR negative #2. Acute hypercapnic respiratory failure related to acute exacerbation of CHF and possibility of pneumonia, healthcare acquired. Patient was placed on BiPAP support pressures of 14/7 and FiO2 of 45% with improvement in her breathing #3. Hypotension, possibly hypovolemic, improved #4. Altered mental status related to mild hypercapnia, and hypoxemia, improved with BiPAP, and diuretics. #5. Obstructive sleep apnea with nocturnal desaturation however patient was unable to complete a sleep study, unclear if she is still compliant with CPAP, but does wear home O2 at 2-3 L/m #6. Morbid obesity #7. Chronic pain syndrome #8. History of COPD with chronic hypoxic respiratory failure #9. History of narcolepsy #10. Hypertension #11. Chronic kidney disease, unspecified #12. History of renal cell cancer with history of right nephrectomy in 1971 #13. Macrocytic anemia #14. Chronic back pain, with history of lumbar disc disease, lumbar compression fracture #15. Gait dysfunction #16. Coronary artery disease with previous history of bypass grafting #17. History of myocardial infarction #18. History of paroxysmal atrial fibrillation, on Eliquis, and placement of permanent pacemaker #19. Poor baseline functional performance, gait dysfunction, patient is a resident of a local [facility] Plan: Continue BiPAP support, continue IV Lasix, continue cefepime and vancomycin, b lood cultures have been sent, pending at this time, patient has been afebrile, chest x-ray and CTA chest have been reviewed showing airspace disease in bilateral lower lungs, with possibility of pneumonia and fluid overload. Pro- calcitonin is pending. Mentation seems to have improved, patient is responding appropriately. She's been afebrile, blood pressures have recovered, patient is voiding. No nausea vomiting or diarrhea. We'll obtain follow-up chest x-ray in the morning, may give the patient a trial off the BiPAP support if she continues to improve. I performed a history & physical examination of the patient and discussed their management with my nurse practitioner, Mile Kapadia. I reviewed the nurse practitioner's note and agree with the documented findings and plan of care. Lung sounds are positive for diminished breath sounds. The findings and the impression was discussed with the patient. I attest to the documentation by the nurse practitioner. Time with Patient: Greater than 30
[2020-03-28] MEDS: MODAFINIL 100 MG TAB PO SCH (16:08)
[2020-03-28] MEDS: HYDROcodone/APAP 10-325MG 1 EACH TAB PO SCH (16:18)
[2020-03-28] MEDS: ATORVASTATIN 40 MG TAB PO SCH (16:18)
--- NOTE | 2020-03-28 16:33 | P.HPIM ---
History of Present Illness H&P Date: 03/28/20 Chief Complaint: Increased lethargy History of presenting complaint: This is a 69-year-old patient of Dr. Weiss whose chronic stable medical conditions include restless leg syndrome, GERD, renal cell carcinoma with right nephrectomy, fibromyalgia, chronic hypercapnic respiratory failure, permanent pacemaker, coronary artery disease with bypass, chronic bladder dysfunction, chronic narcolepsy, obstructive sleep apnea does not use CPAP, COPD, chronic L1 compression fracture, CHF from diastolic dysfunction EF 50-55%. Patient has been living at [facility]. Patient has chronic pain. Does follow with Dr. Rosales from pain services. Patient presented to the ER. Had been more tired lethargic. Also having some blood from the mouth. [facility] liaison informed me that patient had tooth pulled out couple of days ago. Also received eliquis. Patient had had been put on a BiPAP. Patient known to me from previous admissions. Patient is able to talk to me and communicate. Just feeling tired. Patient is a congested chest. Not really able to expectorate. Review of systems: GEN.: Tired EYES: None HEENT: Tooth pulled out couple of days ago. NECK: None RESPIRATORY: Baseline shortness of breath, as above CARDIOVASCULAR: None GASTROINTESTINAL: As above GENITOURINARY: Some incontinence MUSCULOSKELETAL: Joint pains LYMPHATICS: None HEMATOLOGICAL: None PSYCHIATRY: Anxiety NEUROLOGICAL: None Social history: Patient is a . Lives at [facility] since May 03. No smoking. No alcohol Physical examination: VITAL SIGNS: 100.7, 83, 30, 97 weight 2, and 6% on 15 L nonrebreather GENERAL: BMI 49.8, laying in bed lethargic, but able to answer questions, congested cough EYES: Pupils equal. Conjunctiva normal. HEENT: External appearance of nose and ears normal, oral cavity grossly normal. NECK: JVD unable to assess; masses not palpable. HEART: First and second heart sounds are normal; no edema. LUNGS: Respiratory rate increased; distant breath sounds. ABDOMEN: Soft, nontender, liver spleen not palpable, no masses palpable. PSYCH: [Able to answer simple questions NEUROLOGICAL: Cranial nerves grossly intact; no facial asymmetry, limited range of motion both lower extremity. LYMPHATICS: No lymph nodes palpable in the axilla and neck INVESTIGATIONS, reviewed in the clinical context: White count 7.6 hemoglobin 8.9 platelets 47 EKG tracing personally reviewed by me-shows atrial paced rhythm CT [place] chest-extensive pulmonary airspace/consolidation. No PE Computed tomography scan brain-without contrast-negative Chest x-ray film personally reviewed by me-bilateral infiltrates Assessment: -Bilateral pneumonia, suspect aspiration pneumonia including gram-negative organism, causing hemoptysis, POA -Acute hypoxic respiratory failure from above, POA -Sepsis from above, POA -Chronic congestive heart failure from diastolic dysfunction EF 50-55% -Chronic L1 compression fracture -COPD in a nonsmoker -Obstructive sleep apnea does not use CPAP machine -Chronic narcolepsy -Chronic bladder dysfunction with the stimulator urine-coronary artery disease with a history of bypass -Permanent pacemaker -Chronic hypercapnic respiratory failure on oxygen -Chronic fibromyalgia -Renal cell carcinoma with right nephrectomy -GERD -restless leg syndrome -Patient had tooth extracted couple of days ago. Plan: Patient started on IV cefepime. Other home medications to continue. Pulmonary was consulted. Continue with oxygen supplementation BiPAP. Past Medical History Past Medical History: Blood Disorder, Osteoarthritis (OA), Renal Disease Additional Past Medical History / Comment(s): Chronic low back pain which radiates down bilateral legs, lumbar disc disease, spondylosis, lumbar compression fracture, myofascial pain syndrome,migraines, gout bilateral feet, osteoporosis, frequent falls, chronic urine retention/incontinence/has bladder stimulator, 1972 R renal cancer with nephrectomy, anemia, cardiac murmur, home oxygen at 2-3L/NC ATC, KOFFI but device is broken, vertigo, narcolepsy, IBS, pt currently at [facility] for rehab pt currently has 2 impacted teeth taking antibiotics to have removed thursday Last Myocardial Infarction Date:: 2004 History of Any Multi-Drug Resistant Organisms: None Reported Past Surgical History: Appendectomy, Coronary Bypass/CABG, Heart Catheterization, Orthopedic Surgery, Pacemaker Additional Past Surgical History / Comment(s): Rt nephrectomy, lumber epidural injections-last one 03/07/19, bladder stimulator, fabricio carpal tunnel releases, surgery on left hand, 1 vessel CABG 2004, fabricio cataracts with lens implants, colonoscopy. Past Anesthesia/Blood Transfusion Reactions: Previous Problems w/ Anesthesia Additional Past Anesthesia/Blood Transfusion Reaction / Comment(s): Pt has received blood in past without reaction. Type of Cardiac Device: Permanent Pacemaker Device Placement Date:: 2006 Smoking Status: Never smoker - Past Family History Mother Family Medical History: Diabetes Mellitus, Hypertension, Renal Disease Father Additional Family Medical History / Comment(s): Father comitted suicide. Family Family Medical History: Coronary Artery Disease (CAD) Medications and Allergies Home Medications Medication Instructions Recorded Confirmed Type Allopurinol [Zyloprim] 100 mg PO DAILY@0800 02/03/19 03/27/20 History Carbidopa/Levodopa [Sinemet 25-250 1 tab PO BID@0800,1700 02/03/19 03/27/20 History mg] Escitalopram [Lexapro] 20 mg PO DAILY@0800 02/03/19 03/27/20 History Isosorbide Mononitrate ER [Imdur] 30 mg PO DAILY@0802/03/19 03/27/20 History Ferrous Sulfate [Iron] 325 mg PO DAILY@0800 03/01/19 03/27/20 History Nitroglycerin Sl Tabs [Nitrostat] 0.4 mg SL Q5M PRN 03/01/19 03/27/20 History Atorvastatin [Lipitor] 40 mg PO DAILY@1700 05/15/19 03/27/20 History Bisacodyl [Dulcolax] 10 mg RECTAL DAILY PRN 05/15/19 03/27/20 History Furosemide [Lasix] 20 mg PO DAILY@0800 07/05/19 03/27/20 History Ipratropium-Albuterol Nebulize 3 ml INHALATION RT-TID 07/05/19 03/27/20 History [Duoneb 0.5 mg-3 mg/3 ml Soln] Modafinil [Provigil] 100 mg PO DAILY@0800 08/02/19 03/27/20 History Apixaban [Eliquis] 5 mg PO BID@0800,1700 08/08/19 03/27/20 History rOPINIRole HCL [Requip] 2 mg PO TID@0800,1700,209908/08/19 03/27/20 History traZODone HCL 50 mg PO HS@209908/08/19 03/27/20 History Magnesium Hydroxide [Milk of 30 ml PO Q48H PRN 09/07/19 03/27/20 History Magnesia Concentrate] Gabapentin [Neurontin] 100 mg PO TID 10/07/19 03/27/20 History Benzocaine 20 % Gel [Orajel] 1 applic PO DAILY PRN 11/11/19 03/27/20 History Menthol [Biofreeze] 1 applic TOPICAL DAILY PRN 11/11/19 03/27/20 History Na Phos,M-B/Na Phos,Di-Ba [Fleet 133 ml RECTAL DAILY PRN 11/11/19 03/27/20 History Adult] Nystatin 100,000 Unit/gm Powd 1 applic TOPICAL Q8H PRN 11/11/19 03/27/20 History [Mycostatin Powder] HYDROcodone/APAP 10-325MG [Alden 1 tab PO Q6H PRN 12/29/19 03/27/20 History 10-325] Lactase [Lactaid] 3,000 unit PO TID@0800,1200,1700 01/26/20 03/27/20 History Metoprolol Tartrate 25 mg PO TID@0800,1200,2000 01/26/20 03/27/20 History Caldesene Baby Powder 1 applic TOPICAL BID 03/27/20 03/27/20 History Fexofenadine HCl 180 mg PO DAILY 03/27/20 03/27/20 History HYDROcodone/APAP 10-325MG [Alden 1 tab PO BID@0800,1700 03/27/20 03/27/20 History 10-325] Lactase [Lactaid] 3,000 unit PO DAILY PRN 03/27/20 03/27/20 History Omeprazole 40 mg PO DAILY@0700 03/27/20 03/27/20 History Sodium Chloride [Vieques] 1 spray EA NOSTRIL Q8H PRN 03/27/20 03/27/20 History Allergies Allergy/AdvReac Type Severity Reaction Status Date / Time adhesive tape Allergy skin peels Verified 03/27/20 21:00 off Sulfa (Sulfonamide Allergy Unknown Verified 03/27/20 21:00 Antibiotics) Fish Containing Products AdvReac Nausea Verified 03/27/20 21:00 [Fish] Physical Exam Vitals: Vital Signs Temp Pulse Pulse Resp BP BP Pulse Ox 03/28/20 08:00 99.4 F 60 20 121/55 98 03/28/20 04:00 98.2 F 78 18 112/89 95 03/28/20 01:03 98.4 F 79 20 117/93 100 03/27/20 23:40 62 17 98/73 96 03/27/20 23:30 65 17 90 L 03/27/20 23:10 63 21 102/64 99 03/27/20 23:00 60 18 107/56 100 03/27/20 22:40 103/60 03/27/20 22:30 60 18 94/37 96 03/27/20 22:23 98 03/27/20 22:20 61 16 94/37 62 L 03/27/20 22:10 29 H 96 03/27/20 22:00 60 22 72/35 98 03/27/20 21:50 60 19 97 03/27/20 20:52 38 H 03/27/20 20:39 30 H 03/27/20 20:25 100.7 F H 83 30 H 97/82 96 Intake and Output 03/27/20 03/28/20 03/28/20 22:59 06:59 14:59 Intake Total 30 30 Output Total 240 500 Balance 30 -210 -500 Intake: IV 30 30 Invasive Line 1 20 20 Invasive Line 2 10 10 Output: Urine 240 500 Other: Weight 129 kg 127.5 kg Results CBC & Chem 7: 03/28/20 06:00 03/28/20 06:00 Labs: Abnormal Lab Results - Last 24 Hours (Table) 03/27/20 03/27/20 03/27/20 Range/Units 20:22 20:22 21:53 RBC 2.46 L (3.80-5.40) m/uL Hgb 8.9 L (11.4-16.0) gm/dL Hct 26.8 L (34.0-46.0) % MCV 109.0 H (80.0-100.0) fL MCH 36.1 H (25.0-35.0) pg RDW 17.2 H (11.5-15.5) % Plt Count 47 L (150-450) k/uL Lymphocytes # 0.4 L (1.0-4.8) k/uL Macrocytosis Marked A PT (9.0-12.0) sec INR 1.2 H (<1.2) ABG pCO2 (35-45) mmHg ABG pO2 (83-108) mmHg ABG HCO3 (21-25) mmol/L ABG Total CO2 (19-24) mmol/L ABG O2 Saturation (94-97) % Chloride (98-107) mmol/L Carbon Dioxide 31 H (22-30) mmol/L BUN 27 H (7-17) mg/dL Creatinine (0.52-1.04) mg/dL Calcium 8.2 L (8.4-10.2) mg/dL Magnesium (1.6-2.3) mg/dL Total Bilirubin (0.2-1.3) mg/dL Alkaline Phosphatase 230 H (38-126) U/L Total Protein (6.3-8.2) g/dL Albumin 3.0 L (3.5-5.0) g/dL 03/27/20 03/28/20 03/28/20 Range/Units 23:12 06:00 06:00 RBC 2.31 L (3.80-5.40) m/uL Hgb 8.3 L (11.4-16.0) gm/dL Hct 26.1 L (34.0-46.0) % MCV 113.1 H (80.0-100.0) fL MCH 36.1 H (25.0-35.0) pg RDW 17.5 H (11.5-15.5) % Plt Count 36 L (150-450) k/uL Lymphocytes # 0.9 L (1.0-4.8) k/uL Macrocytosis Marked A PT 13.0 H (9.0-12.0) sec INR 1.3 H (<1.2) ABG pCO2 46 H (35-45) mmHg ABG pO2 111 H (83-108) mmHg ABG HCO3 30 H (21-25) mmol/L ABG Total CO2 32 H (19-24) mmol/L ABG O2 Saturation 98.9 H (94-97) % Chloride (98-107) mmol/L Carbon Dioxide (22-30) mmol/L BUN (7-17) mg/dL Creatinine (0.52-1.04) mg/dL Calcium (8.4-10.2) mg/dL Magnesium (1.6-2.3) mg/dL Total Bilirubin (0.2-1.3) mg/dL Alkaline Phosphatase (38-126) U/L Total Protein (6.3-8.2) g/dL Albumin (3.5-5.0) g/dL 03/28/20 Range/Units 06:00 RBC (3.80-5.40) m/uL Hgb (11.4-16.0) gm/dL Hct (34.0-46.0) % MCV (80.0-100.0) fL MCH (25.0-35.0) pg RDW (11.5-15.5) % Plt Count (150-450) k/uL Lymphocytes # (1.0-4.8) k/uL Macrocytosis PT (9.0-12.0) sec INR (<1.2) ABG pCO2 (35-45) mmHg ABG pO2 (83-108) mmHg ABG HCO3 (21-25) mmol/L ABG Total CO2 (19-24) mmol/L ABG O2 Saturation (94-97) % Chloride 109 H (98-107) mmol/L Carbon Dioxide (22-30) mmol/L BUN 31 H (7-17) mg/dL Creatinine 1.12 H (0.52-1.04) mg/dL Calcium 7.8 L (8.4-10.2) mg/dL Magnesium 1.5 L (1.6-2.3) mg/dL Total Bilirubin 1.6 H (0.2-1.3) mg/dL Alkaline Phosphatase 159 H (38-126) U/L Total Protein 5.9 L (6.3-8.2) g/dL Albumin 2.3 L (3.5-5.0) g/dL Thrombosis Risk Factor Assmnt - Choose All That Apply Each Factor Represents 1 point: Medical pt on bed rest, Obesity (BMI >25), Swollen legs (current) Other Risk Factors: Yes Each Risk Factor Represents 2 Points: Age 61-74 years Thrombosis Risk Factor Assessment Total Risk Factor Score: 5 Thrombosis Risk Factor Assessment Level: High Risk
[2020-03-28 20:36] LABS: Glucose,Whole Blood 137 mg/dL (75-99)
[2020-03-28] MEDS ORDERED: [UNRECOGNIZED DRUG - OTHER] TOPICAL SCH (21:00)
[2020-03-28] MEDS: SODIUM CHLORIDE 0.9% 1,000 ML IV STA ×2 (21:11→21:18)
[2020-03-28 21:19] LABS: Anisocytosis Slight; HCT 23.9 % (34.0-46.0); HGB 7.5 gm/dL (11.4-16.0); Hypochromasia Marked; MCHC 31.3 g/dL (31.0-37.0); MCV 112.1 fL (80.0-100.0); Macrocytosis Marked; Mean Platelet Volume 10.2; RBC 2.14 m/uL (3.80-5.40); RDW 17.6 % (11.5-15.5); WBC 5.3 k/uL (3.8-10.6)
[2020-03-28 21:23] LABS: Platelet Count 36 k/uL (150-450)
[2020-03-28 21:27] LABS: INR 1.4 (<1.2); Prothrombin Time 13.8 sec (9.0-12.0)
[2020-03-28 21:32] LABS: Glucose,Whole Blood 132 mg/dL (75-99)
[2020-03-28 21:37] LABS: ABG Base Excess 4.3 mmol/L; ABG HCO3 30 mmol/L (21-25); ABG PCO2 51 mmHg (35-45); ABG PH 7.37 (7.35-7.45); ABG PO2 86 mmHg (83-108); ABG TCO2 31 mmol/L (19-24); Allen Test Performed? Yes
[2020-03-28] MEDS: SODIUM CHLORIDE 0.9% 250 ML IV SCH (22:34)
[2020-03-28] MEDS: traZODone HCL 50 MG TAB PO SCH (22:34)
[2020-03-29] MEDS: HYDROcodone/APAP 10-325MG 1 EACH TAB PO PRN ×2 (03:19→21:04)
[2020-03-29 05:50] LABS: Anisocytosis Slight; HCT 25.4 % (34.0-46.0); Hypochromasia Marked; MCH 35.4 pg (25.0-35.0); MCHC 31.7 g/dL (31.0-37.0); MCV 111.8 fL (80.0-100.0); Macrocytosis Marked; Mean Platelet Volume 9.8; RBC 2.27 m/uL (3.80-5.40); RDW 17.7 % (11.5-15.5); WBC 4.9 k/uL (3.8-10.6)
[2020-03-29 06:01] LABS: Platelet Count 38 k/uL (150-450)
[2020-03-29 06:18] LABS: Band Neutrophils % 1 %; Lymphocytes # (M) 0.69 k/uL (1.0-4.8); Monocytes # (M) 0.15 k/uL (0-1.0); Neutrophils % (M) 80 %; Nucleated Red Blood Cells 0 /100 WBC (0-0); Total Cells Counted 100
[2020-03-29 06:19] LABS: Anisocytosis (M) Present; Ovalocytes Present
[2020-03-29 06:20] LABS: Calcium 7.5 mg/dL (8.4-10.2); Magnesium 1.6 mg/dL (1.6-2.3)
[2020-03-29] MEDS ORDERED: Magnesium Replacement Protocol 1 EACH MISC MISCELLANE PRN (06:26)
[2020-03-29] MEDS: MAGNESIUM SULFATE-D5W PMX 1 GM in DEXTROSE/WATER 1 100ML.BAG IVPB SCH ×2 (06:32→08:14)
--- NOTE | 2020-03-29 06:32 | XR ---
EXAMINATION TYPE: XR chest 1V portable DATE OF EXAM: 03/29/2020 CLINICAL HISTORY: Difficulty breathing progress study. TECHNIQUE: Single AP portable upright view of the chest is obtained. COMPARISON: Chest x-ray and CTA chest from 2 days earlier. FINDINGS: Suboptimal due to portable technique and patient's large body habitus. Persistent cardiomeg corina with dual lead pacemaker and atherosclerotic aorta. Persistent low lung volumes with bilateral lo wer lung airspace opacities. No pleural effusion or pneumothorax seen bilaterally. Underlying dextroc onvex scoliosis centered lower thoracic spine redemonstrated. IMPRESSION: Low lung volumes and cardiomegaly with bilateral lower lung acute infiltrates. No signifi cant change from most recent prior studies.
[2020-03-29] MEDS: PANTOPRAZOLE 40 MG TABLET PO SCH (06:34)
[2020-03-29] MEDS ORDERED: FUROSEMIDE 20 MG TAB PO SCH (08:00)
[2020-03-29] MEDS: FERROUS SULFATE 325 MG TAB PO SCH (08:13)
[2020-03-29] MEDS: ISOSORBIDE MONONITRATE ER 30 MG TAB.ER.24H PO SCH (08:13)
[2020-03-29] MEDS: GABAPENTIN 100 MG CAP PO SCH ×3 (08:13→21:04)
[2020-03-29] MEDS: FUROSEMIDE 10 MG/ML 4 ML VIAL IV SCH (08:13)
[2020-03-29] MEDS: HYDROcodone/APAP 10-325MG 1 EACH TAB PO SCH ×3 (08:13→21:04)
[2020-03-29] MEDS: CEFEPIME 2 GM in SODIUM CHLORIDE 0.9% 100 ML IVPB SCH ×3 (08:13→22:53)
[2020-03-29] MEDS: LORATADINE 10 MG TAB PO SCH (08:14)
[2020-03-29] MEDS: ALLOPURINOL 100 MG TAB PO SCH (08:14)
[2020-03-29] MEDS: METOPROLOL TARTRATE 25 MG TAB PO SCH ×3 (08:14→21:04)
[2020-03-29] MEDS: CARBIDOPA-LEVODOPA 25-250 MG 1 EACH TAB PO SCH ×2 (08:14→16:43)
[2020-03-29] MEDS: ALBUTEROL HFA INHALER INHALATION SCH ×3 (08:18→19:31)
[2020-03-29] MEDS: MODAFINIL 100 MG TAB PO SCH (09:25)
[2020-03-29] MEDS: NOREPINEPHRINE 4 MG in SODIUM CHLORIDE 0.9% 250 ML IV SCH ×3 (11:25→23:04)
[2020-03-29] MEDS: ESCITALOPRAM 20 MG TAB PO SCH (11:49)
--- NOTE | 2020-03-29 12:12 | P.PN ---
Subjective Progress Note Date: 03/29/20 Principal diagnosis: Acute hypoxic respiratory failure secondary to pneumonia and acute diastolic congestive heart failure 69-year-old white female patient of resident [facility] a local [facility] with past medical history of CAD status post bypass grafting, obstructive sleep apnea on CPAP therapy and home oxygen, history of COPD, narcolepsy, chronic kidney disease with history of previous nephrectomy and bladder stimulator placement. Other history includes chronic back pain, frequent falls, osteoporosis, paroxysmal atrial fibrillation. Patient was brought into the hospital per EMS on 03/27/2020 for evaluation of altered mental status, shortness of breath and some oral cavity bleeding. Patient was very confused, agitated, tachypneic, and had some dried blood around the lips. She is a poor historian, she did have low-grade fever with a temp of 100.7F, she was tachypneic, she was placed on BiPAP support. ABG was obtained showing pO2 111, pCO2 46, pH of 7.42, mild CO2 retention, was done on FiO2 of 45%. White blood cell count was within normal limits at 7.6, hemoglobin was 8.9, INR was 1.2, sodium is 142, potassium is 4.3, chloride is 106, CO2 31, BUN was 27, creatinine is 1.02, plasma lactic acid was normal at 1.7, troponin was less than 0.012, proBNP was 2650. Carvajal virus PCR was negative, urinalysis was negative for any sign of infection. Chest x-ray sh owed cardiomegaly, pulmonary edema, bilateral airspace infiltrates in the lower lobes, presence of a left axillary pacemaker. Brain CT showed no intracranial abnormality. CT angiogram of the chest showed extensive pulmonary airspace edema, with the possibility of CHF or ARDS, no evidence of pulmonary embolism. Patient is already on Eliquis for history of paroxysmal atrial fibrillation. She was hypotensive in the emergency department with a blood pressure as low as 72/35 on presentation, which seems to have recovered, lactic acid is within normal limits, she was started on empiric antibiotics, Cefepime and Vancomycin, Protonix at the level is pending, blood cultures have been sent Patient was reevaluated today on 03/29/20, patient was transferred last night to the ICU because she was noted to have low blood pressure, and her O2 saturation was marginal. Patient received a fluid bolus, did not require any pressors. Her ABG showed a pO2 of 86 pCO2 of 51 pH of 7.37, patient was placed on BiPAP, and overnight did not require intubation or mechanical ventilation. I saw this patient this morning in the ICU, she seems to be doing reasonably well. Patient denies any shortness of breath, she is now back on her nasal cannula although she was on BiPAP overnight. Patient is known to have history of obstructive sleep apnea syndrome, and supposed to be on BiPAP at home. All labs today were reviewed, hemoglobin is 8. WBC count is 4.9. Basic metabolic profile is normal, slight worsening in her renal profile with creatinine up to 1.26 most likely related to diuretics. Remains on Lasix at 40 mg IV push every 12 hours, follow-up chest x-ray today showed cardiomegaly, low lung volumes, and bilateral lower lobe infiltrates. Differential diagnoses includes congestive heart failur e, pneumonia, possible covid 19 pneumonitis, although her initial screening was negative. Pro-calcitonin on admission was elevated at 1.09. Hence strongly suspect some component of pneumonia. Objective - Vital Signs Vital signs: Vital Signs Temp 97.0 F L 03/29/20 08:00 Pulse 67 03/29/20 11:00 Resp 20 03/29/20 11:00 BP 101/45 03/29/20 11:00 Pulse Ox 95 03/29/20 10:00 Intake & Output 03/28/20 03/29/20 03/29/20 18:59 06:59 18:59 Intake Total 210 110 610 Output Total 1225 1075 775 Balance -1015 -965 -165 Weight 126.6 kg Intake: IV 90 110 50 0.9 NS 80 50 Invasive Line 1 60 20 Invasive Line 2 30 10 Intake, IV Titration 200 Amount Cefepime 2 gm In Sodium 100 Chloride 0.9% 100 ml @ 200 mls/hr IVPB Q8H HI Rx#:[id number] Magnesium Sulfate-D5w Pmx 100 1 gm In Dextrose/Water 1 100ml.bag @ 100 mls/hr IVPB Q1H HI Rx#: [id number] Oral 120 360 Output: Urine 1225 1075 775 Other: Voiding Method Indwelling Catheter Indwelling Catheter Indwelling Catheter - Exam GENERAL EXAM: Revealed 69-year-old female in no distress. On few liters nasal cannula. HEENT: PERRLA, EOMI, neck is, short obese neck, no neck masses, no JVD, moist mucous membranes. CHEST: No chest wall deformity. Symmetrical expansion. LUNGS: Equal air entry minimal crackles at the bases no rhonchi and no wheezes. CVS: Regular rate and rhythm, normal S1 and S2, no gallops, no murmurs, no rubs ABDOMEN: Soft, nontender. No hepatosplenomegaly, normal bowel sounds, no guarding or rigidity. EXTREMITIES: No clubbing, 1+ lower extremity edema, no cyanosis, 2+ pulses and upper and lower extremities. Her lower extremities are positive for chronic venous stasis changes MUSCULOSKELETAL: Muscle strength and tone normal. SKIN: No rashes CENTRAL NERVOUS SYSTEM: Alert and oriented 3, no gross focal neurologic deficits. PSYCHIATRIC: Normal mood, affect and normal mental status examination. - Labs CBC & Chem 7: 03/29/20 04:40 03/29/20 04:40 Labs: Abnormal Lab Results - Last 24 Hours (Table) 03/28/20 03/28/20 03/28/20 Range/Units 06:00 20:34 21:00 RBC 2.14 L (3.80-5.40) m/uL Hgb 7.5 L (11.4-16.0) gm/dL Hct 23.9 L (34.0-46.0) % MCV 112.1 H (80.0-100.0) fL MCH (25.0-35.0) pg RDW 17.6 H (11.5-15.5) % Plt Count 36 L (150-450) k/uL Lymphocytes # (Manual) (1.0-4.8) k/uL Macrocytosis Marked A PT (9.0-12.0) sec INR (<1.2) ABG pCO2 (35-45) mmHg ABG HCO3 (21-25) mmol/L ABG Total CO2 (19-24) mmol/L Carbon Dioxide (22-30) mmol/L BUN (7-17) mg/dL Creatinine (0.52-1.04) mg/dL POC Glucose (mg/dL) 137 H (75-99) mg/dL Calcium (8.4-10.2) mg/dL Procalcitonin 1.09 H (0.02-0.09) ng/mL 03/28/20 03/28/2003/28/20 Range/Units 21:00 21:31 21:34 RBC (3.80-5.40) m/uL Hgb (11.4-16.0) gm/dL Hct (34.0-46.0) % MCV (80.0-100.0) fL MCH (25.0-35.0) pg RDW (11.5-15.5) % Plt Count (150-450) k/uL Lymphocytes # (Manual) (1.0-4.8) k/uL Macrocytosis PT 13.8 H (9.0-12.0) sec INR 1.4 H (<1.2) ABG pCO2 51 H (35-45) mmHg ABG HCO3 30 H (21-25) mmol/L ABG Total CO2 31 H (19-24) mmol/L Carbon Dioxide (22-30) mmol/L BUN (7-17) mg/dL Creatinine (0.52-1.04) mg/dL POC Glucose (mg/dL) 132 H (75-99) mg/dL Calcium (8.4-10.2) mg/dL Procalcitonin (0.02-0.09) ng/mL 03/29/20 03/29/20 Range/Units 04:40 04:40 RBC 2.27 L (3.80-5.40) m/uL Hgb 8.0 L (11.4-16.0) gm/dL Hct 25.4 L (34.0-46.0) % MCV 111.8 H (80.0-100.0) fL MCH 35.4 H (25.0-35.0) pg RDW 17.7 H (11.5-15.5) % Plt Count 38 L (150-450) k/uL Lymphocytes # (Manual) 0.69 L (1.0-4.8) k/uL Macrocytosis Marked A PT (9.0-12.0) sec INR (<1.2) ABG pCO2 (35-45) mmHg ABG HCO3 (21-25) mmol/L ABG Total CO2 (19-24) mmol/L Carbon Dioxide 31 H (22-30) mmol/L BUN 36 H (7-17) mg/dL Creatinine 1.26 H (0.52-1.04) mg/dL POC Glucose (mg/dL) (75-99) mg/dL Calcium 7.5 L (8.4-10.2) mg/dL Procalcitonin (0.02-0.09) ng/mL Microbiology - Last 24 Hours (Table) 03/27/20 23:20 Blood Culture - Preliminary Blood No Growth after 24 hours Assessment and Plan Assessment: #1. Acute on chronic hypoxemic respiratory failure multifactorial, likely related to possibility of pneumonia, and acute exacerbation of CHF with diastolic dysfunction. COVID 19 PCR negative, however Covid 19 is not entirely ruled out. It is still possible #2. Acute hypercapnic respiratory failure related to acute exacerbation of CHF and possibility of pneumonia, healthcare acquired. Positive pro calcitonin level. And I also suspect some component of obstructive sleep apnea syndrome. #3. Hypotension, possibly hypovolemic, secondary to aggressive diuresis. improved, patient did not require any pressors. #4. Altered mental status related to mild hypercapnia, and hypoxemia, improved with BiPAP, and diuretics. #5. Obstructive sleep apnea with nocturnal desaturation however patient was unable to complete a sleep study, unclear if she is still compliant with CPAP, but does wear home O2 at 2-3 L/m #6. Morbid obesity #7. Chronic pain syndrome #8. History of COPD with chronic hypoxic respiratory failure #9. History of narcolepsy #10. Hypertension #11. Chronic kidney disease, unspecified #12. History of renal cell cancer with history of right nephrectomy in 1972 #13. Macrocytic anemia #14. Chronic back pain, with history of lumbar disc disease, lumbar compression fracture #15. Gait dysfunction #16. Coronary artery disease with previous history of bypass grafting #17. History of myocardial infarction #18. History of paroxysmal atrial fibrillation, on Eliquis, and placement of permanent pacemaker #19. Poor baseline functional performance, gait dysfunction, patient is a [facility] a local [facility] Recommendation: Continue antibiotics. Continue diuretics but lower down the dose. Continue bronchodilators. Continue BiPAP. Monitor in the ICU for the next 24 hours, and if no change consider transferring back to regular medical floor. In the next 24 hours. We'll continue to follow. Time with Patient: Less than 30
[2020-03-29] MEDS: ATORVASTATIN 40 MG TAB PO SCH (16:42)
--- NOTE | 2020-03-29 20:13 | P.PN ---
Progress Note - Text Progress Note Date: 03/29/20 Chief Complaint: Increased lethargy History of presenting complaint: This is a 69-year-old patient of Dr. Weiss whose chronic stable medical conditions include restless leg syndrome, GERD, renal cell carcinoma with right nephrectomy, fibromyalgia, chronic hypercapnic respiratory failure, permanent pacemaker, coronary artery disease with bypass, chronic bladder dysfunction, chronic narcolepsy, obstructive sleep apnea does not use CPAP, COPD, chronic L1 compression fracture, CHF from diastolic dysfunction EF 50-55%. Patient has been living at [facility]. Patient has chronic pain. Does follow with Dr. Rosales from pain services. Patient presented to the ER. Had been more tired lethargic. Also having some blood from the mouth. [facility] liaison informed me that patient had tooth pulled out couple of days ago. Also received eliquis. Patient had had been put on a BiPAP. Patient known to me from previous admissions. Patient is able to talk to me and communicate. Just feeling tired. Patient is a congested chest. Not really able to expectorate. Admitted with bilateral pneumonia, acute hypoxic and hypercapnic respiratory failure and sepsis. Started on BiPAP and IV cefepime. Patient also had some hemoptysis as patient was also on eliquis and also had a tooth pulled out 2 days ago. Today-patient gotten worse and was moved to the ICU. Put on a BiPAP. Other medications continued. Doing better this morning. Had about 50% of her lunch. Review of systems: Was done for constitutional, cardiovascular, GI, pulmonary. relevant finding as above Active Medications Hydrocodone Bitart/Acetaminophen ([place] 10) 1 each PO Q6H PRN PRN Reason: Pain Last Admin: 03/29/20 03:19 Dose: 1 each Documented by: Hydrocodone Bitart/Acetaminophen ([place] 10) 1 each PO BID@0800,1700 [facility] Last Admin: 03/29/20 16:42 Dose: 1 each Documented by: Albuterol Sulfate (Ventolin Hfa Inhaler) 2 puff INHALATION RT-TID [facility] Last Admin: 03/29/20 19:31 Dose: 2 puff Documented by: Allopurinol (Zyloprim) 100 mg PO DAILY@0800 [facility] Last Admin: 03/29/20 08:14 Dose: 100 mg Documented by: Atorvastatin Calcium (Lipitor) 40 mg PO DAILY@1700 [facility] Last Admin: 03/29/20 16:42 Dose: 40 mg Documented by: Benzocaine (Orajel) 1 gm MM DAILY PRN PRN Reason: broken&missing teeth pain Bisacodyl (Dulcolax) 10 mg RECTAL DAILY PRN PRN Reason: Constipation Carbidopa/Levodopa (Sinemet 25-250) 1 each PO BID@0800,1700 [facility] Last Admin: 03/29/20 16:43 Dose: 1 each Documented by: Escitalopram Oxalate (Lexapro) 20 mg PO DAILY@0800 [facility] Last Admin: 03/29/20 11:49 Dose: 20 mg Documented by: Ferrous Sulfate (Feosol) 325 mg PO DAILY@0800 [facility] Last Admin: 03/29/20 08:13 Dose: 325 mg Documented by: Furosemide (Lasix) 40 mg IV DAILY [facility] Gabapentin (Neurontin) 100 mg PO TID [facility] Last Admin: 03/29/20 16:42 Dose: 100 mg Documented by: Cefepime HCl 2 gm/ Sodium (Chloride) 100 mls @ 200 mls/hr IVPB Q8H [facility] Last Admin: 03/29/20 16:43 Dose: 200 mls/hr Documented by: Norepinephrine Bitartrate 4 mg (/ Sodium Chloride) 254 mls @ 24.289 mls/hr IV .[id number] [facility]; Protocol Last Admin: 03/29/20 15:38 Dose: Not Given Documented by: Loratadine (Claritin) 10 mg PO DAILY [facility] Last Admin: 03/29/20 08:14 Dose: 10 mg Documented by: Magnesium Hydroxide (Milk Of Magnesia) 2,400 mg PO Q48H PRN PRN Reason: Constipation Methyl Salicylate (Thera-Gesic Cream) 1 applic TOPICAL DAILY PRN PRN Reason: lower back pain Metoprolol Tartrate (Lopressor) 25 mg PO TID@0800,1200,2000 [facility] Last Admin: 03/29/20 11:50 Dose: Not Given Documented by: Miscellaneous Information (Magnesium Per Protocol) 1 each MISCELLANE DAILY PRN; Protocol PRN Reason: Per Protocol Modafinil (Provigil) 100 mg PO DAILY@0800 [facility] Last Admin: 03/29/20 09:25 Dose: 100 mg Documented by: Naloxone HCl (Narcan) 0.2 mg IV Q2M PRN PRN Reason: Opioid Reversal Nitroglycerin (Nitrostat) 0.4 mg SUBLINGUAL Q5M PRN PRN Reason: Chest Pain Nystatin (Mycostatin Powder) 1 applic TOPICAL Q8H PRN PRN Reason: under breasts/groin Pantoprazole Sodium (Protonix) 40 mg PO DAILY@0700 [facility] Last Admin: 03/29/20 06:34 Dose: 40 mg Documented by: Ropinirole HCl (Requip) 2 mg PO TID@0800,1700,2100 [facility] Last Admin: 03/29/20 18:25 Dose: 2 mg Documented by: Sodium Biphosphate/Sodium Phosphate (Fleet Adult) 133 ml RECTAL DAILY PRN PRN Reason: Constipation Sodium Chloride ([place]) 1 spray NASAL Q8H PRN PRN Reason: dry nose Trazodone HCl (Desyrel) 50 mg PO HS@2100 [facility] Last Admin: 03/28/20 22:34 Dose: Not Given Documented by: Physical examination: VITAL SIGNS: 97.2, 61, 18, 108-41, 98% on 5 L GENERAL: Propped up in bed, awake answering questions a bit tired EYES: Pupils equal. Conjunctiva normal. HEENT: External appearance of nose and ears normal, oral cavity grossly normal. NECK: JVD unable to assess; masses not palpable. HEART: First and second heart sounds are normal; no edema. LUNGS: Respiratory rate increased; distant breath sounds. ABDOMEN: Soft, nontender, liver spleen not palpable, no masses palpable. PSYCH: [Able to answer simple questions INVESTIGATIONS, reviewed in the clinical context: White count 4.9 hemoglobin 8 platelets 38 BUN 26 creatinine 1.26 Previous testing White count 7.6 hemoglobin 8.9 platelets 47 EKG tracing personally reviewed by me-shows atrial paced rhythm CT [place] chest-extensive pulmonary airspace/consolidation. No PE Computed tomography scan brain-without contrast-negative Chest x-ray film personally reviewed by me-bilateral infiltrates Assessment: -Bilateral pneumonia, suspect aspiration pneumonia including gram-negative organism, causing hemoptysis, POA -Acute hypoxic respiratory failure from above, POA, slow to respond -Sepsis from above, POA -Chronic congestive heart failure from diastolic dysfunction EF 50-55%, doubt acute exacerbation -Chronic L1 compression fracture -COPD in a nonsmoker -Obstructive sleep apnea does not use CPAP machine -Chronic narcolepsy -Chronic bladder dysfunction with the stimulator urine-coronary artery disease with a history of bypass -Permanent pacemaker -Chronic hypercapnic respiratory failure on oxygen -Chronic fibromyalgia -Renal cell carcinoma with right nephrectomy -GERD -restless leg syndrome -Patient had tooth extracted couple of days ago. Plan: Continue IV cefepime. Initially used a BiPAP. The social studies department chair nasal cannula. Care was discussed with the patient. Other medication treatment plan to continue. Repeat labs.
[2020-03-29] MEDS: traZODone HCL 50 MG TAB PO SCH (21:04)
[2020-03-30 06:15] LABS: Anisocytosis Slight; Basophils % (A) 0 %; Eosinophils # (A) 0.4 k/uL (0-0.7); Eosinophils % (A) 7 %; HCT 27.7 % (34.0-46.0); HGB 8.7 gm/dL (11.4-16.0); Hypochromasia Moderate; Lymphocytes # (A) 0.8 k/uL (1.0-4.8); Lymphocytes % (A) 15 %; MCH 35.1 pg (25.0-35.0); MCHC 31.5 g/dL (31.0-37.0); MCV 111.2 fL (80.0-100.0); Macrocytosis Marked; Mean Platelet Volume 11.7; Monocytes # (A) 0.4 k/uL (0-1.0); Monocytes % (A) 8 %; Neutrophils # (A) 3.4 k/uL (1.3-7.7); Neutrophils % (A) 68 %; RBC 2.49 m/uL (3.80-5.40); RDW 17.2 % (11.5-15.5)
[2020-03-30 06:22] LABS: Platelet Count 39 k/uL (150-450)
[2020-03-30] MEDS: PANTOPRAZOLE 40 MG TABLET PO SCH (06:39)
[2020-03-30 06:49] LABS: Large Platelets Present
[2020-03-30 06:51] LABS: Polychromasia Present
[2020-03-30] MEDS: ALLOPURINOL 100 MG TAB PO SCH (08:19)
[2020-03-30] MEDS: CEFEPIME 2 GM in SODIUM CHLORIDE 0.9% 100 ML IVPB SCH (08:20)
[2020-03-30] MEDS: GABAPENTIN 100 MG CAP PO SCH ×3 (08:20→20:22)
[2020-03-30] MEDS: FERROUS SULFATE 325 MG TAB PO SCH (08:20)
[2020-03-30] MEDS: HYDROcodone/APAP 10-325MG 1 EACH TAB PO SCH ×2 (08:20→15:51)
[2020-03-30] MEDS: CARBIDOPA-LEVODOPA 25-250 MG 1 EACH TAB PO SCH ×2 (08:20→16:53)
[2020-03-30] MEDS: LORATADINE 10 MG TAB PO SCH (08:20)
[2020-03-30] MEDS: MODAFINIL 100 MG TAB PO SCH (08:21)
[2020-03-30] MEDS: ESCITALOPRAM 20 MG TAB PO SCH (08:21)
[2020-03-30 08:40] LABS: Calcium 7.9 mg/dL (8.4-10.2); Magnesium 1.9 mg/dL (1.6-2.3)
[2020-03-30] MEDS: METOPROLOL TARTRATE 25 MG TAB PO SCH ×3 (08:49→20:22)
[2020-03-30] MEDS: FUROSEMIDE 10 MG/ML 4 ML VIAL IV SCH (08:49)
[2020-03-30] MEDS: ALBUTEROL HFA INHALER INHALATION SCH ×3 (08:50→21:00)
[2020-03-30] MEDS: ALPRAZolam 0.25 MG TAB PO PRN ×3 (08:54→20:22)
[2020-03-30 08:55] LABS: Potassium 4.7 mmol/L (3.5-5.1)
[2020-03-30] MEDS: PIPERACILLIN-TAZOBACTAM 3.375 GM in SODIUM CHLORIDE 0.9% 100 ML IVPB SCH ×2 (08:56→15:51)
[2020-03-30] MEDS ORDERED: ENOXAPARIN 40 MG/0.4 ML SYRINGE SQ SCH (09:00)
--- NOTE | 2020-03-30 10:00 | XR ---
EXAMINATION TYPE: XR chest 1V portable DATE OF EXAM: 03/30/2020 COMPARISON: 03/29/2020 HISTORY: Shortness of breath. Follow-up exam. TECHNIQUE: Single frontal view of the chest is obtained. FINDINGS: Enlarged cardiomediastinal silhouette with dual lead left-sided cardiac device. Improved r ight basilar airspace disease. Minimal pulmonary vascular prominence. Dextroscoliosis of the thoracic spine again noted. Trace pleural effusions. No apparent retrocardiac opacity. IMPRESSION: Resolved retrocardiac opacity and improved right basilar opacity with minimal trace pleu ral pulmonary vascular congestion and trace pleural effusions remaining.
[2020-03-30] MEDS: NOREPINEPHRINE 4 MG in SODIUM CHLORIDE 0.9% 250 ML IV SCH ×2 (10:27→19:31)
--- NOTE | 2020-03-30 11:39 | P.PN ---
<Mikayla Polo - Last Filed: 03/29/20 12:01> Subjective This is Mikayla Polo PA-C scribing on behalf of Dr. Hutchins The patient was interviewed and examined by Dr. Hutchins HPI/interval history Patient is a 69-year-old female with a history significant for CAD status post CABG, paroxysmal atrial fibrillation, status post permanent pacemaker implantation, chronic diastolic heart failure, COPD, KOFFI, dyslipidemia, and hypertension who presented from her local group home facility with respiratory distress, AMS, bleeding from the mouth. Chest CTA was negative for pulmonary embolism but does show extensive pulmonary airspace edema consistent with CHF versus ARDS. She was admitted to the ICU, placed on BiPAP, and started on antibiotics and IV Lasix. Apparently, overnight she became hypotensive and was coughing up blood. Lopressor and eliquis on hold. Blood pressure has improved somewhat. She denies any chest pain. EXAMINATION Patient is afebrile, pulse in the 60s, respirations 20, blood pressure 101/45, oxygen saturation 95% [address] Hutchins examine the patient in the ICU heart sounds are soft, regular Breath sounds are reduced bilaterally unable to assess JVD due to body habitus mild edema bilaterally REVIEW OF LABS, ECG WBC 4.9, hemoglobin 8.0, platelets 38, potassium 4.0, BUN 36, creatinine 1.6 Coronavirus PCR negative Echocardiogram shows EF 60-65%, borderline concentric LVH, right ventricle severely enlarged, RVSP 37 IMPRESSION / ASSESSMENT: Acute on chronic hypoxic respiratory failure, hemoptysis, hypotension, CTA negative for pulmonary embolism but does show pulmonary edema, echocardiogram showing preserved LV systolic function but severely dilated RV with mild pul monary hypertension, possibly secondary to pneumonia vs congestive heart failure secondary to diastolic dysfunction Hypotension, elevated pro-calcitonin, febrile upon presentation, blood cultures pending, possible pneumonia/sepsis CAD status post CABG Paroxysmal atrial fibrillation, on coagulation on hold due to anemia and hemoptysis Status post permanent pacemaker implantation Acute on chronic diastolic heart failure, echocardiogram shows EF 60-65% COPD KOFFI Dyslipidemia Hypertension Anemia Thrombocytopenia PLAN: Stop Imdur in view of her hypotension Continue holding metoprolol until blood pressure improves Continue holding eliquis Continue Lasix Continue antibiotics Objective - Vital Signs Vital signs: Vital Signs Temp 97.0 F L 03/29/20 08:00 Pulse 67 03/29/20 11:00 Resp 20 03/29/20 11:00 BP 101/45 03/29/20 11:00 Pulse Ox 95 03/29/20 10:00 Intake & Output 03/28/20 03/29/20 03/29/20 18:59 06:59 18:59 Intake Total 210 110 610 Output Total 1225 1075 775 Balance -1015 -965 -165 Weight 126.6 kg Intake: IV 90 110 50 0.9 NS 80 50 Invasive Line 1 60 20 Invasive Line 2 30 10 Intake, IV Titration 200 Amount Cefepime 2 gm In Sodium 100 Chloride 0.9% 100 ml @ 200 mls/hr IVPB Q8H [facility] Rx#:[id number] Magnesium Sulfate-D5w Pmx 100 1 gm In Dextrose/Water 1 100ml.bag @ 100 mls/hr IVPB Q1H [facility] Rx#: [id number] Oral 120 360 Output: Urine 1225 1075 775 Other: Voiding Method Indwelling Catheter Indwelling Catheter Indwelling Catheter - Labs CBC & Chem 7: 03/29/20 04:40 03/29/20 04:40 Labs: Abnormal Lab Results - Last 24 Hours (Table) 03/28/20 03/28/20 03/28/20 Range/Units 06:00 20:34 21:00 RBC 2.14 L (3.80-5.40) m/uL Hgb 7.5 L (11.4-16.0) gm/dL Hct 23.9 L (34.0-46.0) % MCV 112.1 H (80.0-100.0) fL MCH (25.0-35.0) pg RDW 17.6 H (11.5-15.5) % Plt Count 36 L (150-450) k/uL Lymphocytes # (Manual) (1.0-4.8) k/uL Macrocytosis Marked A PT (9.0-12.0) sec INR (<1.2) ABG pCO2 (35-45) mmHg ABG HCO3 (21-25) mmol/L ABG Total CO2 (19-24) mmol/L Carbon Dioxide (22-30) mmol/L BUN (7-17) mg/dL Creatinine (0.52-1.04) mg/dL POC Glucose (mg/dL) 137 H (75-99) mg/dL Calcium (8.4-10.2) mg/dL Procalcitonin 1.09 H (0.02-0.09) ng/mL 03/28/20 03/28/20 03/28/20 Range/Units 21:00 21:31 21:34 RBC (3.80-5.40) m/uL Hgb (11.4-16.0) gm/dL Hct (34.0-46.0) % MCV (80.0-100.0) fL MCH (25.0-35.0) pg RDW (11.5-15.5) % Plt Count (150-450) k/uL Lymphocytes # (Manual) (1.0-4.8) k/uL Macrocytosis PT 13.8 H (9.0-12.0) sec INR 1.4 H (<1.2) ABG pCO2 51 H (35-45) mmHg ABG HCO3 30 H (21-25) mmol/L ABG Total CO2 31 H (19-24) mmol/L Carbon Dioxide (22-30) mmol/L BUN (7-17) mg/dL Creatinine (0.52-1.04) mg/dL POC Glucose (mg/dL) 132 H (75-99) mg/dL Calcium (8.4-10.2) mg/dL Procalcitonin (0.02-0.09) ng/mL 03/29/20 03/29/20 Range/Units 04:40 04:40 RBC 2.27 L (3.80-5.40) m/uL Hgb 8.0 L (11.4-16.0) gm/dL Hct 25.4 L (34.0-46.0) % MCV 111.8 H (80.0-100.0) fL MCH 35.4 H (25.0-35.0) pg RDW 17.7 H (11.5-15.5) % Plt Count 38 L (150-450) k/uL Lymphocytes # (Manual) 0.69 L (1.0-4.8) k/uL Macrocytosis Marked A PT (9.0-12.0) sec INR (<1.2) ABG pCO2 (35-45) mmHg ABG HCO3 (21-25) mmol/L ABG Total CO2 (19-24) mmol/L Carbon Dioxide 31 H (22-30) mmol/L BUN 36 H (7-17) mg/dL Creatinine 1.26 H (0.52-1.04) mg/dL POC Glucose (mg/dL) (75-99) mg/dL Calcium 7.5 L (8.4-10.2) mg/dL Procalcitonin (0.02-0.09) ng/mL Microbiology - Last 24 Hours (Table) 03/27/20 23:20 Blood Culture - Preliminary Blood No Growth after 24 hours <Jaya Hutchins - Last Filed: 03/30/20 11:39> Objective - Vital Signs Vital signs: Vital Signs Temp 97.7 F 03/30/20 04:00 Pulse 61 03/30/20 11:00 Resp 13 03/30/20 11:00 BP 96/46 03/30/20 11:00 Pulse Ox 97 03/30/20 11:00 Intake & Output 03/29/20 03/30/20 03/30/20 18:59 06:59 18:59 Intake Total 1140 324.087 420.279 Output Total 1850 515 425 Balance -710 -190.913 -4.721 Weight 124.9 kg Intake: IV 220 210 50 0.9 NS 120 110 50 Cefepime 2 gm In Sodium 100 100 Chloride 0.9% 100 ml @ 200 mls/hr IVPB Q8H [facility] Rx#:[id number] Intake, IV Titration 200 14.087 170.279 Amount Cefepime 2 gm In Sodium 100 Chloride 0.9% 100 ml @ 200 mls/hr IVPB Q8H [facility] Rx#:[id number] Magnesium Sulfate-D5w Pmx 100 1 gm In Dextrose/Water 1 100ml.bag @ 100 mls/hr IVPB Q1H [facility] Rx#: [id number] Norepinephrine 4 mg In 14.087 70.279 Sodium Chloride 0.9% 250 ml @ 0.05 MCG/KG/MIN 24. 289 mls/hr IV .[id number] [facility] Rx#:[id number] Piperacillin-Tazobactam 3 100 .375 gm In Sodium Chloride 0.9% 100 ml @ 25 mls/hr IVPB Q8HR [facility] Rx# :[id number] Oral 720 100 200 Output: Urine 1850 515 425 Other: Voiding Method Indwelling Catheter Indwelling Catheter Indwelling Catheter # Bowel Movements 1 - Labs CBC & Chem 7: 03/30/20 05:19 03/30/20 05:19 Labs: Abnormal Lab Results - Last 24 Hours (Table) 03/30/20 03/30/20 Range/Units 05:19 05:19 RBC 2.49 L (3.80-5.40) m/uL Hgb 8.7 L (11.4-16.0) gm/dL Hct 27.7 L (34.0-46.0) % MCV 111.2 H (80.0-100.0) fL MCH 35.1 H (25.0-35.0) pg RDW 17.2 H (11.5-15.5) % Plt Count 39 L (150-450) k/uL Lymphocytes # 0.8 L (1.0-4.8) k/uL Macrocytosis Marked A BUN 37 H (7-17) mg/dL Creatinine 1.20 H (0.52-1.04) mg/dL Glucose 68 L (74-99) mg/dL Calcium 7.9 L (8.4-10.2) mg/dL Microbiology - Last 24 Hours (Table) 03/27/20 23:20 Blood Culture - Preliminary Blood No Growth after 48 hours
--- NOTE | 2020-03-30 11:50 | P.NPCON ---
History of Present Illness - Reason for Consult acute renal failure - History of Present Illness Reason for consultation: Acute kidney injury and PICC line placement. History of present illness: Patient is a 69-year-old female seen in renal consultation for acute kidney injury and clearance for PICC line placement. Patient resides at an extended care facility. She presented to the hospital due to bleeding from oral cavity as well as shortness of breath. She is currently maintained on IV Zosyn for p neumonia. She is not on any vasopressors. She is also on IV Lasix and the frequency was decreased to 40 mg IV once daily this morning. She is nonoliguric. She is currently on BiPAP requiring 45% FiO2. She has been quite anxious and is trying to get off the bed. Patient's echocardiogram revealed preserved ejection fraction. Chest x-ray suggestive of volume overload. Hemodynamically stable with a blood pressures on the lower side. She is afebrile. Cultures negative so far. Coronavirus testing negative. Vital signs are stable. General: The patient appeared well nourished and normally developed. HEENT: Head exam is unremarkable. Currently on BiPAP. HEART: Rate and Rhythm are regular. ABDOMEN: No gross distention noted. Past Medical History Past Medical History: Blood Disorder, Osteoarthritis (OA), Renal Disease Additional Past Medical History / Comment(s): Chronic low back pain which radiates down bilateral legs, lumbar disc disease, spondylosis, lumbar compression fracture, myofascial pain syndrome,migraines, gout bilateral feet, osteoporosis, frequent falls, chronic urine retention/incontinence/has bladder stimulator, 1972 R renal cancer with nephrectomy, anemia, cardiac murmur, home oxygen at 2-3L/NC ATC, KOFFI but device is broken, vertigo, narcolepsy, IBS, pt currently at [facility] for rehab pt currently has 2 impacted teeth taking antibiotics to have removed thursday Last Myocardial Infarction Date:: 2004 History of Any Multi-Drug Resistant Organisms: None Reported Past Surgical History: Appendectomy, Coronary Bypass/CABG, Heart Catheterization, Orthopedic Surgery, Pacemaker Additional Past Surgical History / Comment(s): Rt nephrectomy, lumber epidural injections-last one 03/07/19, bladder stimulator, fabricio carpal tunnel releases, surgery on left hand, 1 vessel CABG 2004, fabricio cataracts with lens implants, colonoscopy. Past Anesthesia/Blood Transfusion Reactions: Previous Problems w/ Anesthesia Additional Past Anesthesia/Blood Transfusion Reaction / Comment(s): Pt has received blood in past without reaction. Type of Cardiac Device: Permanent Pacemaker Device Placement Date:: 2006 Smoking Status: Never smoker - Past Family History Mother Family Medical History: Diabetes Mellitus, Hypertension, Renal Disease Father Additional Family Medical History / Comment(s): Father comitted suicide. Family Family Medical History: Coronary Artery Disease (CAD) Medications and Allergies Home Medications Medication Instructions Recorded Confirmed Type Allopurinol [Zyloprim] 100 mg PO DAILY@0800 02/03/19 03/27/20 History Carbidopa/Levodopa [Sinemet 25-250 1 tab PO BID@0800,1700 02/03/19 03/27/20 History mg] Escitalopram [Lexapro] 20 mg PO DAILY@0800 02/03/19 03/27/20 History Isosorbide Mononitrate ER [Imdur] 30 mg PO DAILY@0800 02/03/19 03/27/20 History Ferrous Sulfate [Iron] 325 mg PO DAILY@0800 03/01/19 03/27/20 History Nitroglycerin Sl Tabs [Nitrostat] 0.4 mg SL Q5M PRN 03/01/19 03/27/20 History Atorvastatin [Lipitor] 40 mg PO DAILY@1700 05/15/19 03/27/20 History Bisacodyl [Dulcolax] 10 mg RECTAL DAILY PRN 05/15/19 03/27/20 History Furosemide [Lasix] 20 mg PO DAILY@0800 07/05/19 03/27/20 History Ipratropium-Albuterol Nebulize 3 ml INHALATION RT-TID 07/05/19 03/27/20 History [Duoneb 0.5 mg-3 mg/3 ml Soln] Modafinil [Provigil] 100 mg PO DAILY@0800 08/02/19 03/27/20 History Apixaban [Eliquis] 5 mg PO BID@0800,1700 08/08/19 03/27/20 History rOPINIRole HCL [Requip] 2 mg PO TID@0800,1700,2100 08/08/19 03/27/20 History traZODone HCL 50 mg PO HS@209908/08/19 03/27/20 History Magnesium Hydroxide [Milk of 30 ml PO Q48H PRN 09/07/19 03/27/20 History Magnesia Concentrate] Gabapentin [Neurontin] 100 mg PO TID 10/07/19 03/27/20 History Benzocaine 20 % Gel [Orajel] 1 applic PO DAILY PRN 11/11/19 03/27/20 History Menthol [Biofreeze] 1 applic TOPICAL DAILY PRN 11/11/19 03/27/20 History Na Phos,M-B/Na Phos,Di-Ba [Fleet 133 ml RECTAL DAILY PRN 11/11/19 03/27/20 History Adult] Nystatin 100,000 Unit/gm Powd 1 applic TOPICAL Q8H PRN 11/11/19 03/27/20 History [Mycostatin Powder] HYDROcodone/APAP 10-325MG [[place] 1 tab PO Q6H PRN 12/29/19 03/27/20 History 10-325] Lactase [Lactaid] 3,000 unit PO TID@0800,1200,1700 01/26/20 03/27/20 History Metoprolol Tartrate 25 mg PO TID@0800,1200,2000 01/26/20 03/27/20 History Caldesene Baby Powder 1 applic TOPICAL BID 03/27/20 03/27/20 History Fexofenadine HCl 180 mg PO DAILY 03/27/20 03/27/20 History HYDROcodone/APAP 10-325MG [[place] 1 tab PO BID@0800,1700 03/27/20 03/27/20 History 10-325] Lactase [Lactaid] 3,000 unit PO DAILY PRN 03/27/20 03/27/20 History Omeprazole 40 mg PO DAILY@0700 03/27/20 03/27/20 History Sodium Chloride [[place]] 1 spray EA NOSTRIL Q8H PRN 03/27/20 03/27/20 History Allergies Allergy/AdvReac Type Severity Reaction Status Date / Time adhesive tape Allergy skin peels Verified 03/27/20 21:00 off Sulfa (Sulfonamide Allergy Unknown Verified 03/27/20 21:00 Antibiotics) Fish Containing Products AdvReac Nausea Verified 03/27/20 21:00 [Fish] Physical Exam Vitals: Vital Signs Temp Pulse Resp BP Pulse Ox 03/30/20 11:00 61 13 96/46 97 03/30/20 10:30 60 15 88/43 98 03/30/20 10:00 60 12 101/67 97 03/30/20 09:30 74 27 H 95 03/30/20 09:00 64 21 105/60 95 03/30/20 08:30 71 22 92 L 03/30/20 08:00 63 23 140/70 93 L 03/30/20 07:30 63 16 92 L 03/30/20 07:00 70 19 125/85 93 L 03/30/20 06:30 86 15 92 L 03/30/20 06:00 90 22 93/47 96 03/30/20 05:30 61 17 96 03/30/20 05:00 60 12 109/76 98 03/30/20 04:30 69 27 H 115/73 97 03/30/20 04:00 97.7 F 60 13 112/63 99 03/30/20 03:30 72 46 H 94/54 96 03/30/20 03:00 60 12 98/58 97 03/30/20 02:30 76 20 95 03/30/20 02:00 80 23 127/104 95 03/30/20 01:30 79 25 H 102/50 98 03/30/20 01:00 61 16 101/65 100 03/30/20 00:30 61 12 112/56 100 03/30/20 00:13 60 14 112/56 100 03/30/20 00:00 98.2 F 64 13 117/62 100 03/29/20 23:45 66 16 117/62 100 03/29/20 23:30 64 16 111/52 100 03/29/20 23:15 65 18 84/37 90 L 03/29/20 23:00 60 12 78/36 99 03/29/20 22:45 60 12 68/32 98 03/29/20 22:30 65 13 83/45 99 03/29/20 22:00 60 13 90/46 97 03/29/20 21:00 66 20 102/50 94 L 03/29/20 20:00 98.3 F 90 18 92/60 93 L 03/29/20 19:00 98 18 103/75 93 L 03/29/20 18:00 68 18 93/70 95 03/29/20 17:00 71 22 118/70 92 L 03/29/20 16:30 74 22 103/59 95 03/29/20 16:00 96.7 F L 62 17 103/56 99 03/29/20 15:47 100 03/29/20 15:30 63 15 106/55 93 L 03/29/20 15:00 70 20 112/56 93 L 03/29/20 14:30 76 12 83/69 99 03/29/20 14:00 25 H 94/75 98 03/29/20 13:30 63 27 H 83/49 100 03/29/20 13:00 60 16 102/85 99 03/29/20 12:30 61 8 L 109/67 99 03/29/20 12:00 97.2 F L 61 18 82/48 98 Intake and Output 03/29/20 03/30/20 03/30/20 22:59 06:59 14:59 Intake Total 270 194.087 420.279 Output Total 860 280 425 Balance -590 -85.913 -4.721 Intake: IV 170 180 50 0.9 NS 70 80 50 Cefepime 2 gm In Sodium 100 100 Chloride 0.9% 100 ml @ 200 mls/hr IVPB Q8H [facility] Rx#:[id number] Intake, IV Titration 14.087 170.279 Amount Norepinephrine 4 mg In 14.087 70.279 Sodium Chloride 0.9% 250 ml @ 0.05 MCG/KG/MIN 24. 289 mls/hr IV .[id number] [facility] Rx#:[id number] Piperacillin-Tazobactam 3 100 .375 gm In Sodium Chloride 0.9% 100 ml @ 25 mls/hr IVPB Q8HR [facility] Rx# :[id number] Oral 100 200 Output: Urine 860 280 425 Other: Voiding Method Indwelling Catheter Indwelling Catheter Indwelling Catheter Weight 124.9 kg Results - Lab Results Most recent lab results ABG pH 7.37 (7.35-7.45) 03/28/20 21:34 ABG pCO2 51 mmHg (35-45) H 03/28/20 21:34 ABG pO2 86 mmHg (83-108) 03/28/20 21:34 ABG HCO3 30 mmol/L (21-25) H 03/28/20 21:34 ABG O2 Saturation 97.0 % (94-97) 03/28/20 21:34 Calcium 7.9 mg/dL (8.4-10.2) L 03/30/20 05:19 Magnesium 1.9 mg/dL (1.6-2.3) 03/30/20 05:19 03/30/20 05:19 03/30/20 05:19 Assessment and Plan Plan: Assessment: 1. Acute kidney injury mostly prerenal secondary to diuresis. She also received IV contrast dye for a chest CT on 03/19/2020. Baseline creatinine near 1 and peaked at 1.26 this admission. It is 1.20 today. 2. Pneumonia maintain on antibiotics. Coronavirus testing negative. 3. Acute on chronic diastolic CHF. 4. Volume overload. 5. 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 6. History of right nephrectomy. Plan: Maintain IV Lasix 40 mg once daily. Continue to monitor renal function and urine output. Follow-up cultures. Okay to proceed with PICC line placement in the dominant arm. Thank you for the consultation. I will continue to follow the patient with you during her hospital stay.
--- NOTE | 2020-03-30 11:52 | CDI ---
Documentation Clarification Form Date: 03/30/2020 11:22:36 AM From: Britany Kessler RN CCDS Admit Date: 03/27/2020 11:34:00 PM Patient Name: Krista Carrera Visit Number: [id number] Discharge Date: ATTENTION: The Clinical Documentation Specialists (CDI) and [facility] Coding Staff appreciate your assistance in clarifying documentation. Please respond to the clarification below the line at the bottom and electronically sign. The CDI & [facility] Coding staff will review the response and follow-up if needed. Please note: Queries are made part of the Legal Health Record. If you have any questions, please contact the author of this message via ITS. Dr. Chip James Altered mental status related to mild hypercapnia and hypoxemia, improved with BIPAP and Diuretics is documented in your consult and Progress Note 03/29 History/Risk Factors: 69-year-old female presented to the ED from [facility] feeling tired and lethargic. Medical History Chronic hypercapnic respiratory failure, CAD, Diastolic CHF and COPD Clinical Indicators: 03/27 20:25 VSS B/P 97/82, HR 83, T 100.7F, RR 30, SpO2 96% Non-Rebreather 03/27 22:30 RR 30 SpO2 96% Bipap Labs: Blood Gas 03/27 PH 7.42, pCO2 46, pO2 111, HCO3 30, CO2 32, OX Sat 98.9, 03/27 CXR: Congestive Heart Failure with also some bilateral lower lobe pneumonia. 03/27 CT Brain: Negative unenhanced head CT scan. No change. Treatment: 03/27 Bipap 03/27 Lasix 40mb Iv x1, 03/28 Lasix 40mg Iv Q 12Hr, 03/30 Lasix 40mg Iv Daily. In your professional opinion, please clarify the etiology of the Altered Mental Status, if known. Metabolic Encephalopathy related to hypercapnia and hypoxemia Other condition (please specify) Unable to determine (Last Revision: February 2018) MTDD
--- NOTE | 2020-03-30 13:12 | P.PN ---
Subjective Progress Note Date: 03/30/20 Principal diagnosis: Acute hypoxic respiratory failure secondary to pneumonia and acute diastolic congestive heart failure 69-year-old white female patient of resident of a local fpc with past medical history of CAD status post bypass grafting, obstructive sleep apnea on CPAP therapy and home oxygen, history of COPD, narcolepsy, chronic kidney disease with history of previous nephrectomy and bladder stimulator placement. Other history includes chronic back pain, frequent falls, osteoporosis, paroxysmal atrial fibrillation. Patient was brought into the hospital per EMS on 03/27/2020 for evaluation of altered mental status, shortness of breath and some oral cavity bleeding. Patient was very confused, agitated, tachypneic, and had some dried blood around the lips. She is a poor historian, she did have low-grade fever with a temp of 100.7F, she was tachypneic, she was placed on BiPAP support. ABG was obtained showing pO2 111, pCO2 46, pH of 7.42, mild CO2 retention, was done on FiO2 of 45%. White blood cell count was within normal limits at 7.6, hemoglobin was 8.9, INR was 1.2, sodium is 142, potassium is 4.3, chloride is 106, CO2 31, BUN was 27, creatinine is 1.02, plasma lactic acid was normal at 1.7, troponin was less than 0.012, proBNP was 2650. Carvajal virus PCR was negative, urinalysis was negative for any sign of infection. Chest x-ray sh owed cardiomegaly, pulmonary edema, bilateral airspace infiltrates in the lower lobes, presence of a left axillary pacemaker. Brain CT showed no intracranial abnormality. CT angiogram of the chest showed extensive pulmonary airspace edema, with the possibility of CHF or ARDS, no evidence of pulmonary embolism. Patient is already on Eliquis for history of paroxysmal atrial fibrillation. She was hypotensive in the emergency department with a blood pressure as low as 72/35 on presentation, which seems to have recovered, lactic acid is within normal limits, she was started on empiric antibiotics, Cefepime and Vancomycin, Protonix at the level is pending, blood cultures have been sent Patient was reevaluated today on 03/29/20, patient was transferred last night to the ICU because she was noted to have low blood pressure, and her O2 saturation was marginal. Patient received a fluid bolus, did not require any pressors. Her ABG showed a pO2 of 86 pCO2 of 51 pH of 7.37, patient was placed on BiPAP, and overnight did not require intubation or mechanical ventilation. I saw this patient this morning in the ICU, she seems to be doing reasonably well. Patient denies any shortness of breath, she is now back on her nasal cannula although she was on BiPAP overnight. Patient is known to have history of obstructive sleep apnea syndrome, and supposed to be on BiPAP at home. All labs today were reviewed, hemoglobin is 8. WBC count is 4.9. Basic metabolic profile is normal, slight worsening in her renal profile with creatinine up to 1.26 most likely related to diuretics. Remains on Lasix at 40 mg IV push every 12 hours, follow-up chest x-ray today showed cardiomegaly, low lung volumes, and bilateral lower lobe infiltrates. Differential diagnoses includes congestive heart failur e, pneumonia, possible covid 19 pneumonitis, although her initial screening was negative. Pro-calcitonin on admission was elevated at 1.09. Hence strongly suspect some component of pneumonia. Reevaluated today on 03/30/20, patient remains in the ICU, presently on nasal cannula, but she was on BiPAP last night. Her FiO2 was 45% IPAP of 14 and EPAP of 7 today on 3 L nasal cannula and her O2 saturation is 93%. Patient continues to have significantly abnormal chest x-ray suspicious for underlying pneumonia, underlying diastolic congestive heart failure is not entirely ruled out. Patient remains on Zosyn, and she remains on Lasix. Vancomycin and cefepime were discontinued. Patient is not requiring any pressors. She seems to be comfortable, in no form of respiratory distress at present. WBC count is 5 hemoglobin is 8.7. Basic metabolic profile is normal renal functioning is improving compared to yesterday, creatinine is 1.20 and it was 1.26 yesterday. Chest x-ray is showing slight improvement in her retrocardiac opacity, and right basilar opacity with trace of pleural pulmonary vascular congestion. And trace of pleural effusions. Objective - Vital Signs Vital signs: Vital Signs Temp 97.1 F L 03/30/20 12:00 Pulse 60 03/30/20 12:00 Resp 14 03/30/20 12:00 BP 112/56 03/30/20 12:00 Pulse Ox 97 03/30/20 12:00 Intake & Output 03/29/20 03/30/20 03/30/20 18:59 06:59 18:59 Intake Total 1140 324.087 430.279 Output Total 1850 515 500 Balance -710 -190.913 -69.721 Weight 124.9 kg Intake: IV 220 210 60 0.9 NS 120 110 60 Cefepime 2 gm In Sodium 100 100 Chloride 0.9% 100 ml @ 200 mls/hr IVPB Q8H HI Rx#:[id number] Intake, IV Titration 200 14.087 170.279 Amount Cefepime 2 gm In Sodium 100 Chloride 0.9% 100 ml @ 200 mls/hr IVPB Q8H HI Rx#:[id number] Magnesium Sulfate-D5w Pmx 100 1 gm In Dextrose/Water 1 100ml.bag @ 100 mls/hr IVPB Q1H HI Rx#: [id number] Norepinephrine 4 mg In 14.087 70.279 Sodium Chloride 0.9% 250 ml @ 0.05 MCG/KG/MIN 24. 289 mls/hr IV .[id number] HI Rx#:[id number] Piperacillin-Tazobactam 3 100 .375 gm In Sodium Chloride 0.9% 100 ml @ 25 mls/hr IVPB Q8HR HI Rx# :[id number] Oral 720 100 200 Output: Urine 1850 515 500 Other: Voiding Method Indwelling Catheter Indwelling Catheter Indwelling Catheter # Bowel Movements 1 - Exam GENERAL EXAM: Revealed 69-year-old female in no distress. On 3 liters nasal cannula. HEENT: PERRLA, EOMI, neck is, short obese neck, no neck masses, no JVD, moist mucous membranes. CHEST: No chest wall deformity. Symmetrical expansion. LUNGS: Equal air entry minimal crackles at the bases no rhonchi and no wheezes. CVS: Regular rate and rhythm, normal S1 and S2, no gallops, no murmurs, no rubs ABDOMEN: Soft, nontender. No hepatosplenomegaly, normal bowel sounds, no guarding or rigidity. EXTREMITIES: No clubbing, 1+ lower extremity edema, no cyanosis, 2+ pulses and upper and lower extremities. Her lower extremities are positive for chronic venous stasis changes MUSCULOSKELETAL: Muscle strength and tone normal. SKIN: No rashes CENTRAL NERVOUS SYSTEM: Alert and oriented 3, no gross focal neurologic deficits. PSYCHIATRIC: Normal mood, affect and normal mental status examination. - Labs CBC & Chem 7: 03/30/20 05:19 03/30/20 05:19 Labs: Abnormal Lab Results - Last 24 Hours (Table) 03/30/20 03/30/20 Range/Units 05:19 05:19 RBC 2.49 L (3.80-5.40) m/uL Hgb 8.7 L (11.4-16.0) gm/dL Hct 27.7 L (34.0-46.0) % MCV 111.2 H (80.0-100.0) fL MCH 35.1 H (25.0-35.0) pg RDW 17.2 H (11.5-15.5) % Plt Count 39 L (150-450) k/uL Lymphocytes # 0.8 L (1.0-4.8) k/uL Macrocytosis Marked A BUN 37 H (7-17) mg/dL Creatinine 1.20 H (0.52-1.04) mg/dL Glucose 68 L (74-99) mg/dL Calcium 7.9 L (8.4-10.2) mg/dL Microbiology - Last 24 Hours (Table) 03/27/20 23:20 Blood Culture - Preliminary Blood No Growth after 48 hours Assessment and Plan Assessment: #1. Acute on chronic hypoxemic respiratory failure multifactorial, likely related to possibility of pneumonia, and acute exacerbation of CHF with diastolic dysfunction. COVID 19 PCR negative, however Covid 19 is not entirely ruled out. It is still possible #2. Acute hypercapnic respiratory failure related to acute exacerbation of CHF and possibility of pneumonia, healthcare acquired. Positive pro calcitonin level. And I also suspect some component of obstructive sleep apnea syndrome. #3. Hypotension, possibly hypovolemic, secondary to aggressive diuresis. im proved, patient did not require any pressors. #4. Altered mental status, metabolic encephalopathy, secondary to hypoxemia and hypercapnia. #5. Obstructive sleep apnea with nocturnal desaturation however patient was unable to complete a sleep study, unclear if she is still compliant with CPAP, but does wear home O2 at 2-3 L/m #6. Morbid obesity #7. Chronic pain syndrome #8. History of COPD with chronic hypoxic respiratory failure #9. History of narcolepsy #10. Hypertension #11. Chronic kidney disease, unspecified #12. History of renal cell cancer with history of right nephrectomy in 1971 #13. Macrocytic anemia #14. Chronic back pain, with history of lumbar disc disease, lumbar compression fracture #15. Gait dysfunction #16. Coronary artery disease with previous history of bypass grafting #17. History of myocardial infarction #18. History of paroxysmal atrial fibrillation, on Eliquis, and placement of permanent pacemaker #19. Poor baseline functional performance, gait dysfunction, patient is a resident of a local fpc Recommendation: Continue antibiotics. Patient was switched to Zosyn. Discontinued cefepime and discontinued vancomycin. Continue diuretics but lower down the dose. Continue bronchodilators. Continue BiPAP. Mostly at night or as needed. Monitor in the ICU today, and we'll address possibly transfer to a regular medical floor in the next 24 hours. Overall prognosis remains extremely poor and guarded. Time with Patient: Less than 30
--- NOTE | 2020-03-30 15:37 | P.PN ---
Progress Note - Text Progress Note Date: 03/30/20 Chief Complaint: Increased lethargy History of presenting complaint: This is a 69-year-old patient of Dr. Weiss whose chronic stable medical conditions include restless leg syndrome, GERD, renal cell carcinoma with right nephrectomy, fibromyalgia, chronic hypercapnic respiratory failure, permanent pacemaker, coronary artery disease with bypass, chronic bladder dysfunction, chronic narcolepsy, obstructive sleep apnea does not use CPAP, COPD, chronic L1 compression fracture, CHF from diastolic dysfunction EF 50-55%. Patient has been living at [facility]. Patient has chronic pain. Does follow with Dr. Rosales from pain services. Patient presented to the ER. Had been more tired lethargic. Also having some blood from the mouth. [facility] liaison informed me that patient had tooth pulled out couple of days ago. Also received eliquis. Patient had had been put on a BiPAP. Patient known to me from previous admissions. Patient is able to talk to me and communicate. Just feeling tired. Patient is a congested chest. Not really able to expectorate. Admitted with bilateral pneumonia, acute hypoxic and hypercapnic respiratory failure and sepsis. Started on BiPAP and IV cefepime. Patient also had some hemoptysis as patient was also on eliquis and also had a tooth pulled out 2 days ago.patient respiratory status worsened and had to be moved to the ICU. Today-breathing better. Reduce BiPAP. did not want eat breakfast. Had about 50% of her lunch. Review of systems: Was done for constitutional, cardiovascular, GI, pulmonary. relevant finding as above Active Medications Hydrocodone Bitart/Acetaminophen ([place] 10) 1 each PO Q6H PRN PRN Reason: Pain Last Admin: 03/29/20 21:04 Dose: 1 each Documented by: Hydrocodone Bitart/Acetaminophen ([place] 10) 1 each PO BID@0800,1700 [facility] Last Admin: 03/30/20 08:20 Dose: 1 each Documented by: Albuterol Sulfate (Ventolin Hfa Inhaler) 2 puff INHALATION RT-TID [facility] Last Admin: 03/30/20 08:50 Dose: 2 puff Documented by: Allopurinol (Zyloprim) 100 mg PO DAILY@0800 [facility] Last Admin: 03/30/20 08:19 Dose: 100 mg Documented by: Alprazolam (Xanax) 0.25 mg PO QID PRN PRN Reason: Anxiety Last Admin: 03/30/20 08:54 Dose: 0.25 mg Documented by: Atorvastatin Calcium (Lipitor) 40 mg PO DAILY@1700 [facility] Last Admin: 03/29/20 16:42 Dose: 40 mg Documented by: Benzocaine (Orajel) 1 gm MM DAILY PRN PRN Reason: broken&missing teeth pain Bisacodyl (Dulcolax) 10 mg RECTAL DAILY PRN PRN Reason: Constipation Carbidopa/Levodopa (Sinemet 25-250) 1 each PO BID@0800,1700 [facility] Last Admin: 03/30/20 08:20 Dose: 1 each Documented by: Enoxaparin Sodium (Lovenox) 40 mg SQ DAILY [facility] Last Admin: 03/30/20 08:56 Dose: 40 mg Documented by: Escitalopram Oxalate (Lexapro) 20 mg PO DAILY@0800 [facility] Last Admin: 03/30/20 08:21 Dose: 20 mg Documented by: Ferrous Sulfate (Feosol) 325 mg PO DAILY@0800 [facility] Last Admin: 03/30/20 08:20 Dose: 325 mg Documented by: Furosemide (Lasix) 40 mg IV DAILY [facility] Last Admin: 03/30/20 08:49 Dose: 40 mg Documented by: Gabapentin (Neurontin) 100 mg PO TID [facility] Last Admin: 03/30/20 08:20 Dose: 100 mg Documented by: Norepinephrine Bitartrate 4 mg (/ Sodium Chloride) 254 mls @ 24.289 mls/hr IV .[id number] [facility]; Protocol Last Admin: 03/30/20 10:27 Dose: Not Given Documented by: Piperacillin Sod/Tazobactam (Sod 3.375 gm/ Sodium Chloride) 100 mls @ 25 mls/hr IVPB Q8HR [facility] Last Admin: 03/30/20 08:56 Dose: 25 mls/hr Documented by: Loratadine (Claritin) 10 mg PO DAILY [facility] Last Admin: 03/30/20 08:20 Dose: 10 mg Documented by: Magnesium Hydroxide (Milk Of Magnesia) 2,400 mg PO Q48H PRN PRN Reason: Constipation Methyl Salicylate (Thera-Gesic Cream) 1 applic TOPICAL DAILY PRN PRN Reason: lower back pain Metoprolol Tartrate (Lopressor) 25 mg PO TID@0800,1200,2000 [facility] Last Admin: 03/30/20 14:04 Dose: Not Given Documented by: Miscellaneous Information (Magnesium Per Protocol) 1 each MISCELLANE DAILY PRN; Protocol PRN Reason: Per Protocol Modafinil (Provigil) 100 mg PO DAILY@0800 [facility] Last Admin: 03/30/20 08:21 Dose: 100 mg Documented by: Naloxone HCl (Narcan) 0.2 mg IV Q2M PRN PRN Reason: Opioid Reversal Nitroglycerin (Nitrostat) 0.4 mg SUBLINGUAL Q5M PRN PRN Reason: Chest Pain Nystatin (Mycostatin Powder) 1 applic TOPICAL Q8H PRN PRN Reason: under breasts/groin Pantoprazole Sodium (Protonix) 40 mg PO DAILY@0700 [facility] Last Admin: 03/30/20 06:39 Dose: 40 mg Documented by: Ropinirole HCl (Requip) 2 mg PO TID@0800,1700,2100 [facility] Last Admin: 03/30/20 08:21 Dose: 2 mg Documented by: Sodium Biphosphate/Sodium Phosphate (Fleet Adult) 133 ml RECTAL DAILY PRN PRN Reason: Constipation Sodium Chloride ([place] Sea) 1 spray NASAL Q8H PRN PRN Reason: dry nose Trazodone HCl (Desyrel) 50 mg PO HS@2100 [facility] Last Admin: 03/29/20 21:04 Dose: 50 mg Documented by: Physical examination: VITAL SIGNS: 97.1, 60, 14, 112/56, 87% on BiPAP GENERAL: laying in bed, tired EYES: Pupils equal. Conjunctiva normal. HEENT: External appearance of nose and ears normal, oral cavity grossly normal. NECK: JVD unable to assess; masses not palpable. HEART: First and second heart sounds are normal; no edema. LUNGS: Respiratory rate increased; distant breath sounds. ABDOMEN: Soft, nontender, liver spleen not palpable, no masses palpable. PSYCH: [Able to answer simple questions INVESTIGATIONS, reviewed in the clinical context: white count 5 hemoglobin 8.7 platelets 39bun 37 creatinine 1.20 glucose 68 chest x-ray reports-decreasing infiltrates Previous testing White count 7.6 hemoglobin 8.9 platelets 47 EKG tracing personally reviewed by me-shows atrial paced rhythm CT [place] chest-extensive pulmonary airspace/consolidation. No PE Computed tomography scan brain-without contrast-negative Chest x-ray film personally reviewed by me-bilateral infiltrates Assessment: -Bilateral pneumonia, suspect aspiration pneumonia including gram-negative organism, causing hemoptysis, POA -Acute hypoxic respiratory failure from above, POA, slow to respond -Sepsis from above, POA -possible acute on chronic, Chronic congestive heart failure from diastolic dysfunction EF 50-55%, -Chronic L1 compression fracture -COPD in a nonsmoker -Obstructive sleep apnea does not use CPAP machine -Chronic narcolepsy -Chronic bladder dysfunction with the stimulator urine-coronary artery disease with a history of bypass -Permanent pacemaker -Chronic hypercapnic respiratory failure on oxygen -Chronic fibromyalgia -Renal cell carcinoma with right nephrectomy -GERD -restless leg syndrome -Patient had tooth extracted couple of days ago. -Acute kidney injury, likely prerenal -possibly ITP Plan: Continue IV cefepime. patient is on IV Lasix. Follow labs closely.we'll get a hematology opinion for the low platelets. Appears to be chronic. recent bleeding seemed to be precipitated by being on eliquis and the platelets dropping to below 50. Patient is off eliquis.we'll check pro BNP though it may be off setting because of abnormal kidney function
[2020-03-30] MEDS: ATORVASTATIN 40 MG TAB PO SCH (15:51)
--- NOTE | 2020-03-30 16:48 | P.CONS ---
<Maggi Mcgee - Last Filed: 03/30/20 16:40> History of Present Illness - Reason for Consult Consult date: 03/30/20 Thrombocytopenia Requesting physician: Nasim Colon - Chief Complaint Respiratory distress fever - History of Present Illness Ms Carrera is a pleasant white female with multiple medical problems. The patient is an [facility] since early 2018, because of heart disease including congestive heart failure, O2 dependence, and poor mobility which is multifactorial, with severe DJD a major factor. Patient's labs in 12/19 had shown hemoglobin 11.9, white count 6.13 and platelets 48. MCV was elevated at 108. Repeat labs on 12/26/19 showed plt of 47. From 01/04/20 platelets were 57, she therefore was sent for evaluation with Dr. Aguilar and seen in office in December 2019 She denied any prior history of blood problems, other than anemia requiring blood transfusion more than 5-6 years ago. She did not recall the exact etiology. No history of any excessive alcohol use. She denied any knowledge of chronic liver disease. However CT of the abdomen and pelvis in 05/18 had shown nodular contour of the liver suggesting underlying cirrhosis as well as mild enlargement of the spleen. The patient history of kidney cancer on the right side treated with surgery in the 1970s. [facility], febrile on admission, covid neg. Currently requiring bipap. Prior to admission was on eliquis, because of thrombocytopenia this is on hold. I have held prophylactic lovenox as well. Review of Systems A 14 point review of systems assessed and completed and all negative except HPI Past Medical History Past Medical History: Blood Disorder, Osteoarthritis (OA), Renal Disease Additional Past Medical History / Comment(s): Chronic low back pain which radiates down bilateral legs, lumbar disc disease, spondylosis, lumbar compression fracture, myofascial pain syndrome,migraines, gout bilateral feet, osteoporosis, frequent falls, chronic urine retention/incontinence/has bladder stimulator, 1971 R renal cancer with nephrectomy, anemia, cardiac murmur, home oxygen at 2-3L/NC ATC, KOFFI but device is broken, vertigo, narcolepsy, IBS, pt currently at [facility] for rehab pt currently has 2 impacted teeth taking antibiotics to have removed thursday Last Myocardial Infarction Date:: 2004 History of Any Multi-Drug Resistant Organisms: None Reported Past Surgical History: Appendectomy, Coronary Bypass/CABG, Heart Catheterization, Orthopedic Surgery, Pacemaker Additional Past Surgical History / Comment(s): Rt nephrectomy, lumber epidural injections-last one 03/07/19, bladder stimulator, fabricio carpal tunnel releases, surgery on left hand, 1 vessel CABG 2004, fabricio cataracts with lens implants, colonoscopy. Past Anesthesia/Blood Transfusion Reactions: Previous Problems w/ Anesthesia Additional Past Anesthesia/Blood Transfusion Reaction / Comm: Pt has received blood in past without reaction. Type of Cardiac Device: Permanent Pacemaker Device Placement Date:: 2006 Smoking Status: Never smoker - Past Family History Mother Family Medical History: Diabetes Mellitus, Hypertension, Renal Disease Father Additional Family Medical History / Comment(s): Father comitted suicide. Family Family Medical History: Coronary Artery Disease (CAD) Medications and Allergies Home Medications Medication Instructions Recorded Confirmed Type Allopurinol [Zyloprim] 100 mg PO DAILY@0800 02/03/19 03/27/20 History Carbidopa/Levodopa [Sinemet 25-250 1 tab PO BID@0800,1700 02/03/19 03/27/20 History mg] Escitalopram [Lexapro] 20 mg PO DAILY@0800 02/03/19 03/27/20 History Isosorbide Mononitrate ER [Imdur] 30 mg PO DAILY@0800 02/03/19 03/27/20 History Ferrous Sulfate [Iron] 325 mg PO DAILY@0800 03/01/19 03/27/20 History Nitroglycerin Sl Tabs [Nitrostat] 0.4 mg SL Q5M PRN 03/01/19 03/27/20 History Atorvastatin [Lipitor] 40 mg PO DAILY@1700 05/15/19 03/27/20 History Bisacodyl [Dulcolax] 10 mg RECTAL DAILY PRN 05/15/19 03/27/20 History Furosemide [Lasix] 20 mg PO DAILY@0800 07/05/19 03/27/20 History Ipratropium-Albuterol Nebulize 3 ml INHALATION RT-TID 07/05/19 03/27/20 History [Duoneb 0.5 mg-3 mg/3 ml Soln] Modafinil [Provigil] 100 mg PO DAILY@0800 08/02/19 03/27/20 History Apixaban [Eliquis] 5 mg PO BID@0800,1700 08/08/19 03/27/20 History rOPINIRole HCL [Requip] 2 mg PO TID@0800,1700,2100 08/08/19 03/27/20 History traZODone HCL 50 mg PO HS@2100 08/08/19 03/27/20 History Magnesium Hydroxide [Milk of 30 ml PO Q48H PRN 09/07/19 03/27/20 History Magnesia Concentrate] Gabapentin [Neurontin] 100 mg PO TID 10/07/19 03/27/20 History Benzocaine 20 % Gel [Orajel] 1 applic PO DAILY PRN 11/11/19 03/27/20 History Menthol [Biofreeze] 1 applic TOPICAL DAILY PRN 11/11/19 03/27/20 History Na Phos,M-B/Na Phos,Di-Ba [Fleet 133 ml RECTAL DAILY PRN 11/11/19 03/27/20 History Adult] Nystatin 100,000 Unit/gm Powd 1 applic TOPICAL Q8H PRN 11/11/19 03/27/20 History [Mycostatin Powder] HYDROcodone/APAP 10-325MG [[place] 1 tab PO Q6H PRN 12/29/19 03/27/20 History 10-325] Lactase [Lactaid] 3,000 unit PO TID@0800,1200,1700 01/26/20 03/27/20 History Metoprolol Tartrate 25 mg PO TID@0800,1200,2000 01/26/20 03/27/20 History Caldesene Baby Powder 1 applic TOPICAL BID 03/27/20 03/27/20 History Fexofenadine HCl 180 mg PO DAILY 03/27/20 03/27/20 History HYDROcodone/APAP 10-325MG [[place] 1 tab PO BID@0800,1700 03/27/20 03/27/20 His tory 10-325] Lactase [Lactaid] 3,000 unit PO DAILY PRN 03/27/20 03/27/20 History Omeprazole 40 mg PO DAILY@0700 03/27/20 03/27/20 History Sodium Chloride [Enders] 1 spray EA NOSTRIL Q8H PRN 03/27/20 03/27/20 History Allergies Allergy/AdvReac Type Severity Reaction Status Date / Time adhesive tape Allergy skin peels Verified 03/27/20 21:00 off Sulfa (Sulfonamide Allergy Unknown Verified 03/27/20 21:00 Antibiotics) Fish Containing Products AdvReac Nausea Verified 03/27/20 21:00 [Fish] Physical Exam Vitals: Vital Signs Temp Pulse Resp BP Pulse Ox 03/30/20 15:00 62 16 113/99 92 L 03/30/20 14:30 63 21 91/40 94 L 03/30/20 14:00 60 12 91/40 99 03/30/20 13:30 66 12 90/40 99 03/30/20 13:00 60 12 90/40 99 03/30/20 12:30 64 12 92/46 98 03/30/20 12:00 97.1 F L 60 14 112/56 97 03/30/20 11:30 68 14 90/45 96 03/30/20 11:00 61 13 96/46 97 03/30/20 10:30 60 15 88/43 98 03/30/20 10:00 60 12 101/67 97 03/30/20 09:30 74 27 H 95 03/30/20 09:00 64 21 105/60 95 03/30/20 08:30 71 22 92 L 03/30/20 08:00 63 23 140/70 93 L 03/30/20 07:30 63 16 92 L 03/30/20 07:00 70 19 125/85 93 L 03/30/20 06:30 86 15 92 L 03/30/20 06:00 90 22 93/47 96 03/30/20 05:30 61 17 96 03/30/20 05:00 60 12 109/76 98 03/30/20 04:30 69 27 H 115/73 97 03/30/20 04:00 97.7 F 60 13 112/63 99 03/30/20 03:30 72 46 H 94/54 96 03/30/20 03:00 60 12 98/58 97 03/30/20 02:30 76 20 95 03/30/20 02:00 80 23 127/104 95 03/30/20 01:30 79 25 H 102/50 98 03/30/20 01:00 61 16 101/65 100 03/30/20 00:30 61 12 112/56 100 03/30/20 00:13 60 14 112/56 100 03/30/20 00:00 98.2 F 64 13 117/62 100 03/29/20 23:45 66 16 117/62 100 03/29/20 23:30 64 16 111/52 100 03/29/20 23:15 65 18 84/37 90 L 03/29/20 23:00 60 12 78/36 99 03/29/20 22:45 60 12 68/32 98 03/29/20 22:30 65 13 83/45 99 03/29/20 22:00 60 13 90/46 97 03/29/20 21:00 66 20 102/50 94 L 03/29/20 20:00 98.3 F 90 18 92/60 93 L 03/29/20 19:00 98 18 103/75 93 L 03/29/20 18:00 68 18 93/70 95 03/29/20 17:00 71 22 118/70 92 L 03/29/20 16:30 74 22 103/59 95 Intake and Output 03/30/20 03/30/20 03/30/20 06:59 14:59 22:59 Intake Total 194.087 450.279 10 Output Total 280 660 300 Balance -85.913 -209.721 -290 Intake: IV 180 80 10 0.9 NS 80 80 10 Cefepime 2 gm In Sodium 100 Chloride 0.9% 100 ml @ 200 mls/hr IVPB Q8H [facility] Rx#:[id number] Intake, IV Titration 14.087 170.279 Amount Norepinephrine 4 mg In 14.087 70.279 Sodium Chloride 0.9% 250 ml @ 0.05 MCG/KG/MIN 24. 289 mls/hr IV .[id number] [facility] Rx#:[id number] Piperacillin-Tazobactam 3 100 .375 gm In Sodium Chloride 0.9% 100 ml @ 25 mls/hr IVPB Q8HR [facility] Rx# :[id number] Oral 200 Output: Urine 280 660 300 Other: Voiding Method Indwelling Catheter Indwelling Catheter Indwelling Catheter Weight 124.9 kg Gen: Alert, In mild distress, Bipap Head: NCAT Neck Supple Lungs: Dimished increased effort Heart: Norm Abd: Soft Ext: Gen Edema Results CBC & Chem 7: 03/30/20 05:19 03/30/20 05:19 Labs: Abnormal Lab Results - Last 24 Hours (Table) 03/30/20 03/30/20 Range/Units 05:19 05:19 RBC 2.49 L (3.80-5.40) m/uL Hgb 8.7 L (11.4-16.0) gm/dL Hct 27.7 L (34.0-46.0) % MCV 111.2 H (80.0-100.0) fL MCH 35.1 H (25.0-35.0) pg RDW 17.2 H (11.5-15.5) % Plt Count 39 L (150-450) k/uL Lymphocytes # 0.8 L (1.0-4.8) k/uL Macrocytosis Marked A BUN 37 H (7-17) mg/dL Creatinine 1.20 H (0.52-1.04) mg/dL Glucose 68 L (74-99) mg/dL Calcium 7.9 L (8.4-10.2) mg/dL Microbiology - Last 24 Hours (Table) 03/27/20 23:20 Blood Culture - Preliminary Blood No Growth after 48 hours Chest x-ray: report reviewed CT scan - chest: report reviewed Assessment and Plan Plan: Macrocytic Anemia:Acute on Chronic: - Recent Anemia work-up - Increased FLC ratio, no M protein identified - Repeat anemia work-up - When stable repeat abdominal imaging to assess liver and spleen Thrombocytopenia: Acute on Chronic: - Likely worsened with acute inflammation and acute illness - Hold all anticoagulation at this time - Monitor CBC, Coags - Transfuse if less than 10 or less than 50K if signs of bleeding Acute on chronic hypoxemic respiratory failure multifactorial, likely related to possibility of pneumonia - COvid neg but per MR not ruled out Acute exacerbation of CHF and possibility of pneumonia, healthcare acquired. - Per Primary and ICU Hypotension, possibly hypovolemic, secondary to aggressive diuresis. improved, patient did not require any pressors. Altered mental status, metabolic encephalopathy, secondary to hypoxemia and hypercapnia. - Schisto review Acute renal insuff: - Nephrology following - Mild increase in creatinine Physician attest: I have completed the full history and physical and agree with above dictation, dictated as a scribe <Devon Aguilar - Last Filed: 03/31/20 01:29> Physical Exam Vitals: Vital Signs Temp Pulse Resp BP Pulse Ox 03/31/20 01:00 75 20 94/61 03/31/20 00:00 97.0 F L 75 17 87/66 99 03/30/20 23:00 65 21 102/50 98 03/30/20 22:00 20 94/49 93 L 03/30/20 21:00 63 17 106/27 94 L 03/30/20 20:00 98.0 F 77 20 91/43 96 03/30/20 19:00 63 13 90/47 95 03/30/20 18:00 60 14 108/77 95 03/30/20 17:00 66 27 H 108/77 99 03/30/20 16:00 98.5 F 64 13 113/84 93 L 03/30/20 15:00 62 16 113/99 92 L 03/30/20 14:30 63 21 91/40 94 L 03/30/20 14:00 60 12 91/40 99 03/30/20 13:30 66 12 90/40 99 03/30/20 13:00 60 12 90/40 99 03/30/20 12:30 64 12 92/46 98 03/30/20 12:00 97.1 F L 60 14 112/56 97 03/30/20 11:30 68 14 90/45 96 03/30/20 11:00 61 13 96/46 97 03/30/20 10:30 60 15 88/43 98 03/30/20 10:00 60 12 101/67 97 03/30/20 09:30 74 27 H 95 03/30/20 09:00 64 21 105/60 95 03/30/20 08:30 71 22 92 L 03/30/20 08:00 63 23 140/70 93 L 03/30/20 07:30 63 16 92 L 03/30/20 07:00 70 19 125/85 93 L 03/30/20 06:30 86 15 92 L 03/30/20 06:00 90 22 93/47 96 03/30/20 05:30 61 17 96 03/30/20 05:00 60 12 109/76 98 03/30/20 04:30 69 27 H 115/73 97 03/30/20 04:00 97.7 F 60 13 112/63 99 03/30/20 03:30 72 46 H 94/54 96 03/30/20 03:00 60 12 98/58 97 03/30/20 02:30 76 20 95 03/30/20 02:00 80 23 127/104 95 03/30/20 01:30 79 25 H 102/50 98 Intake and Output 03/30/20 03/30/20 03/31/20 14:59 22:59 06:59 Intake Total 450.279 380 30 Output Total 660 1020 200 Balance -209.721 -640 -170 Intake: IV 80 80 30 0.9 NS 80 80 30 Intake, IV Titration 170.279 Amount Norepinephrine 4 mg In 70.279 Sodium Chloride 0.9% 250 ml @ 0.05 MCG/KG/MIN 24. 289 mls/hr IV .[id number] [facility] Rx#:[id number] Piperacillin-Tazobactam 3 100 .375 gm In Sodium Chloride 0.9% 100 ml @ 25 mls/hr IVPB Q8HR [facility] Rx# :[id number] Oral 200 225 Tube Feeding 75 Output: Urine 660 1020 200 Other: Voiding Method Indwelling Catheter Indwelling Catheter Indwelling Catheter Results CBC & Chem 7: 03/30/20 05:19 03/30/20 05:19 Labs: Abnormal Lab Results - Last 24 Hours (Table) 03/30/20 03/30/20 Range/Units 05:19 05:19 RBC 2.49 L (3.80-5.40) m/uL Hgb 8.7 L (11.4-16.0) gm/dL Hct 27.7 L (34.0-46.0) % MCV 111.2 H (80.0-100.0) fL MCH 35.1 H (25.0-35.0) pg RDW 17.2 H (11.5-15.5) % Plt Count 39 L (150-450) k/uL Lymphocytes # 0.8 L (1.0-4.8) k/uL Macrocytosis Marked A BUN 37 H (7-17) mg/dL Creatinine 1.20 H (0.52-1.04) mg/dL Glucose 68 L (74-99) mg/dL Calcium 7.9 L (8.4-10.2) mg/dL Microbiology - Last 24 Hours (Table) 03/30/20 08:51 Gram Stain - Preliminary Sputum 03/27/20 23:20 Blood Culture - Preliminary Blood No Growth after 48 hours Assessment and Plan Plan: Add: no significant Concern for a microangiopathic hemolytic process at this time. Creatinine only mildly elevated from baseline, and has been in this range inter mittently before. Baseline thrombocytopenia most likely due to chronic liver disease and resultant portal hypertension and splenic sequestration. Current drop is most likely due to increased consumption/marrow suppression from acute illness and/or increased hepatic congestion from CHF
[2020-03-30] MEDS: traZODone HCL 50 MG TAB PO SCH (20:22)
[2020-03-31] MEDS: PIPERACILLIN-TAZOBACTAM 3.375 GM in SODIUM CHLORIDE 0.9% 100 ML IVPB SCH ×4 (00:15→23:39)
[2020-03-31] MEDS: ALPRAZolam 0.25 MG TAB PO PRN (01:11)
[2020-03-31] MEDS: HYDROcodone/APAP 10-325MG 1 EACH TAB PO PRN (01:12)
[2020-03-31] MEDS: NOREPINEPHRINE 4 MG in SODIUM CHLORIDE 0.9% 250 ML IV SCH (03:17)
[2020-03-31 06:23] LABS: INR 1.2 (<1.2); Partial Thromboplastin Time 31.8 sec (22.0-30.0); Prothrombin Time 12.1 sec (9.0-12.0)
[2020-03-31 06:24] LABS: Anisocytosis Slight; Basophils % (A) 0 %; Eosinophils # (A) 0.2 k/uL (0-0.7); Eosinophils % (A) 7 %; HCT 25.3 % (34.0-46.0); HGB 7.9 gm/dL (11.4-16.0); Hypochromasia Marked; Lymphocytes # (A) 0.6 k/uL (1.0-4.8); Lymphocytes % (A) 17 %; MCH 35.2 pg (25.0-35.0); MCHC 31.2 g/dL (31.0-37.0); Macrocytosis Marked; Mean Platelet Volume 11.3; Monocytes # (A) 0.2 k/uL (0-1.0); Monocytes % (A) 7 %; Neutrophils # (A) 2.3 k/uL (1.3-7.7); Neutrophils % (A) 65 %; RBC 2.24 m/uL (3.80-5.40); RDW 17.4 % (11.5-15.5); Reticulocyte % 1.5 % (0.5-2.0); WBC 3.6 k/uL (3.8-10.6)
[2020-03-31] MEDS: PANTOPRAZOLE 40 MG TABLET PO SCH (06:27)
[2020-03-31 06:30] LABS: Platelet Count 34 k/uL (150-450)
--- NOTE | 2020-03-31 06:35 | XR ---
EXAMINATION TYPE: XR chest 1V portable DATE OF EXAM: 03/31/2020 HISTORY: shortness of breath. REFERENCE: Previous study dated 03/30/2020. FINDINGS: Unfortunately, the patient's chin projects over the left lung apex. There is worsening opacity on the right. Opacity in the left is unchanged. The heart is enlarged. A b ipolar pacemaker is in place. There is blunting of both CP angles and I could not exclude small effus ions. IMPRESSION: 1. CARDIOMEGALY. 2. CONTINUING BILATERAL OPACITIES, WORSENING ON THE RIGHT. 3. I CANNOT EXCLUDE SMALL, BILATERAL EFFUSIONS.
[2020-03-31 07:25] LABS: ALT <6 U/L (4-34); AST 30 U/L (14-36); African American GFR (CKD) 44 (>60 ml/min/1.73 sqM); Albumin 2.3 g/dL (3.5-5.0); Alkaline Phosphatase 148 U/L (38-126); Anion Gap 1 mmol/L; Blood Urea Nitrogen 35 mg/dL (7-17); Calcium 7.8 mg/dL (8.4-10.2); Carbon Dioxide 34 mmol/L (22-30); Chloride 105 mmol/L (98-107); Glucose 92 mg/dL (74-99); LDH 471 U/L (313-618); Magnesium 1.8 mg/dL (1.6-2.3); Non-African American GFR(CKD) 38 (>60 ml/min/1.73 sqM); Sodium 140 mmol/L (137-145); Total Protein 5.6 g/dL (6.3-8.2)
[2020-03-31 07:36] LABS: Potassium 3.8 mmol/L (3.5-5.1)
[2020-03-31] MEDS: FUROSEMIDE 10 MG/ML 4 ML VIAL IV SCH (08:11)
[2020-03-31 08:36] LABS: Large Platelets Present; Poikilocytosis (M) Present
[2020-03-31] MEDS: ALBUTEROL HFA INHALER INHALATION SCH ×3 (08:48→20:30)
[2020-03-31] MEDS: GABAPENTIN 100 MG CAP PO SCH ×3 (09:28→19:44)
[2020-03-31] MEDS: FERROUS SULFATE 325 MG TAB PO SCH (09:29)
[2020-03-31] MEDS: ALLOPURINOL 100 MG TAB PO SCH (09:29)
[2020-03-31] MEDS: CARBIDOPA-LEVODOPA 25-250 MG 1 EACH TAB PO SCH ×2 (09:29→17:16)
[2020-03-31] MEDS: ESCITALOPRAM 20 MG TAB PO SCH (09:29)
[2020-03-31] MEDS: METOPROLOL TARTRATE 25 MG TAB PO SCH ×3 (09:29→22:44)
[2020-03-31] MEDS: MODAFINIL 100 MG TAB PO SCH (09:29)
[2020-03-31] MEDS: LORATADINE 10 MG TAB PO SCH (09:29)
[2020-03-31] MEDS: HYDROcodone/APAP 10-325MG 1 EACH TAB PO SCH ×2 (09:30→17:16)
[2020-03-31] MEDS: HALOPERIDOL LACTATE 5 MG/ML 1 ML VIAL IVP PRN (09:51)
[2020-03-31 10:33] LABS: Free Kappa Lt Chain Qnt, Serum 9.52 mg/dL (0.33-1.94)
--- NOTE | 2020-03-31 11:52 | P.PN ---
Subjective Progress Note Date: 03/31/20 Follow-up for acute kidney injury. Objective - Vital Signs Vital signs: Vital Signs Temp 97.5 F L 03/31/20 09:00 Pulse 61 03/31/20 10:00 Resp 25 H 03/31/20 10:00 BP 138/118 03/31/20 09:00 Pulse Ox 93 L 03/31/20 10:00 Intake & Output 03/30/20 03/31/20 03/31/20 18:59 06:59 18:59 Intake Total 615.279 295 40 Output Total 1575 415 800 Balance -959.721 -120 -760 Weight 120.2 kg Intake: IV 120 120 40 0.9 NS 120 120 40 Intake, IV Titration 170.279 Amount Norepinephrine 4 mg In 70.279 Sodium Chloride 0.9% 250 ml @ 0.05 MCG/KG/MIN 24. 289 mls/hr IV .[id number] [facility] Rx#:[id number] Piperacillin-Tazobactam 3 100 .375 gm In Sodium Chloride 0.9% 100 ml @ 25 mls/hr IVPB Q8HR [facility] Rx# :[id number] Oral 325 100 Tube Feeding 75 Output: Urine 1575 415 800 Other: Voiding Method Indwelling Catheter Indwelling Catheter Indwelling Catheter - Exam Limited exam secondary to COVID pandemic and to limit PPE. - Labs CBC & Chem 7: 03/31/20 05:12 03/31/20 05:12 Labs: Abnormal Lab Results - Last 24 Hours (Table) 03/31/20 03/31/20 03/31/20 Range/Units 05:12 05:12 05:12 WBC 3.6 L (3.8-10.6) k/uL RBC 2.24 L (3.80-5.40) m/uL Hgb 7.9 L (11.4-16.0) gm/dL Hct 25.3 L (34.0-46.0) % MCV 113.0 H (80.0-100.0) fL MCH 35.2 H (25.0-35.0) pg RDW 17.4 H (11.5-15.5) % Plt Count 34 L (150-450) k/uL Lymphocytes # 0.6 L (1.0-4.8) k/uL Macrocytosis Marked A PT (9.0-12.0) sec INR (<1.2) APTT (22.0-30.0) sec Carbon Dioxide 34 H (22-30) mmol/L BUN 35 H (7-17) mg/dL Creatinine 1.39 H (0.52-1.04) mg/dL Calcium 7.8 L (8.4-10.2) mg/dL Alkaline Phosphatase 148 H (38-126) U/L Total Protein 5.6 L (6.3-8.2) g/dL Albumin 2.3 L (3.5-5.0) g/dL IgG (700.0-1600.0) mg/dL IgA (60.0-350.0) mg/dL Free [place] LC, Quant 9.52 H (0.33-1.94) mg/dL Free Lambda LC, Quant 12.90 H (0.57-2.63) mg/dL 03/31/20 03/31/20 Range/Units 05:12 05:12 WBC (3.8-10.6) k/uL RBC (3.80-5.40) m/uL Hgb (11.4-16.0) gm/dL Hct (34.0-46.0) % MCV (80.0-100.0) fL MCH (25.0-35.0) pg RDW (11.5-15.5) % Plt Count (150-450) k/uL Lymphocytes # (1.0-4.8) k/uL Macrocytosis PT 12.1 H (9.0-12.0) sec INR 1.2 H (<1.2) APTT 31.8 H (22.0-30.0) sec Carbon Dioxide (22-30) mmol/L BUN (7-17) mg/dL Creatinine (0.52-1.04) mg/dL Calcium (8.4-10.2) mg/dL Alkaline Phosphatase (38-126) U/L Total Protein (6.3-8.2) g/dL Albumin (3.5-5.0) g/dL IgG 1810.0 H (700.0-1600.0) mg/dL IgA 410.0 H (60.0-350.0) mg/dL Free [place] LC, Quant (0.33-1.94) mg/dL Free Lambda LC, Quant (0.57-2.63) mg/dL Microbiology - Last 24 Hours (Table) 03/27/20 23:20 Blood Culture - Preliminary Blood No Growth after 72 hours 03/30/20 08:51 Gram Stain - Preliminary Sputum Assessment and Plan Assessment: #1 nonoliguric acute kidney injury multifactorial. Baseline creatinine 1.0 MG per DL. -Prerenal secondary to over diuresis -Ischemic ATN because of low blood pressures and contrast. #2 pneumonia on antibiotics, covid negative #3 diastolic CHF #4 acute respiratory failure on as needed BiPAP #5 chronic kidney disease stage III with a baseline creatinine of 1.2 MG per DL secondary to solitary left kidney. Plan: #1 continue with Lasix 40 mg IV once a day. #2 monitor renal function and urine output. #3 avoid nephrotoxic agents and hypotensive episodes.
--- NOTE | 2020-03-31 14:13 | P.PN ---
Subjective Progress Note Date: 03/31/20 Principal diagnosis: Acute hypoxic respiratory failure secondary to pneumonia and acute diastolic congestive heart failure 69-year-old white female patient of resident of a local alf with past medical history of CAD status post bypass grafting, obstructive sleep apnea on CPAP therapy and home oxygen, history of COPD, narcolepsy, chronic kidney disease with history of previous nephrectomy and bladder stimulator placement. Other history includes chronic back pain, frequent falls, osteoporosis, paroxysmal atrial fibrillation. Patient was brought into the hospital per EMS on 03/27/2020 for evaluation of altered mental status, shortness of breath and some oral cavity bleeding. Patient was very confused, agitated, tachypneic, and had some dried blood around the lips. She is a poor historian, she did have low-grade fever with a temp of 100.7F, she was tachypneic, she was placed on BiPAP support. ABG was obtained showing pO2 111, pCO2 46, pH of 7.42, mild CO2 retention, was done on FiO2 of 45%. White blood cell count was within normal limits at 7.6, hemoglobin was 8.9, INR was 1.2, sodium is 142, potassium is 4.3, chloride is 106, CO2 31, BUN was 27, creatinine is 1.02, plasma lactic acid was normal at 1.7, troponin was less than 0.012, proBNP was 2650. Carvajal virus PCR was negative, urinalysis was negative for any sign of infection. Chest x-ray sh owed cardiomegaly, pulmonary edema, bilateral airspace infiltrates in the lower lobes, presence of a left axillary pacemaker. Brain CT showed no intracranial abnormality. CT angiogram of the chest showed extensive pulmonary airspace edema, with the possibility of CHF or ARDS, no evidence of pulmonary embolism. Patient is already on Eliquis for history of paroxysmal atrial fibrillation. She was hypotensive in the emergency department with a blood pressure as low as 72/35 on presentation, which seems to have recovered, lactic acid is within normal limits, she was started on empiric antibiotics, Cefepime and Vancomycin, Protonix at the level is pending, blood cultures have been sent Patient was reevaluated today on 03/29/20, patient was transferred last night to the ICU because she was noted to have low blood pressure, and her O2 saturation was marginal. Patient received a fluid bolus, did not require any pressors. Her ABG showed a pO2 of 86 pCO2 of 51 pH of 7.37, patient was placed on BiPAP, and overnight did not require intubation or mechanical ventilation. I saw this patient this morning in the ICU, she seems to be doing reasonably well. Patient denies any shortness of breath, she is now back on her nasal cannula although she was on BiPAP overnight. Patient is known to have history of obstructive sleep apnea syndrome, and supposed to be on BiPAP at home. All labs today were reviewed, hemoglobin is 8. WBC count is 4.9. Basic metabolic profile is normal, slight worsening in her renal profile with creatinine up to 1.26 most likely related to diuretics. Remains on Lasix at 40 mg IV push every 12 hours, follow-up chest x-ray today showed cardiomegaly, low lung volumes, and bilateral lower lobe infiltrates. Differential diagnoses includes congestive heart failur e, pneumonia, possible covid 19 pneumonitis, although her initial screening was negative. Pro-calcitonin on admission was elevated at 1.09. Hence strongly suspect some component of pneumonia. Reevaluated today on 03/30/20, patient remains in the ICU, presently on nasal cannula, but she was on BiPAP last night. Her FiO2 was 45% IPAP of 14 and EPAP of 7 today on 3 L nasal cannula and her O2 saturation is 93%. Patient continues to have significantly abnormal chest x-ray suspicious for underlying pneumonia, underlying diastolic congestive heart failure is not entirely ruled out. Patient remains on Zosyn, and she remains on Lasix. Vancomycin and cefepime were discontinued. Patient is not requiring any pressors. She seems to be comfortable, in no form of respiratory distress at present. WBC count is 5 hemoglobin is 8.7. Basic metabolic profile is normal renal functioning is improving compared to yesterday, creatinine is 1.20 and it was 1.26 yesterday. Chest x-ray is showing slight improvement in her retrocardiac opacity, and right basilar opacity with trace of pleural pulmonary vascular congestion. And trace of pleural effusions. Patient was reevaluated today on 03/31/20, remains in the ICU, presently on nasal cannula, however on BiPAP at night. His BiPAP settings are 14/7 and 55%. Today she is on 4 L nasal cannula. Patient remains confused, restless, agitated, and recommended a trial of Haldol, and recommended stopping the Xanax for now. Depending on her response to Haldol, we'll decide whether to continue Haldol or use Ativan on this patient for intermittent episodes of agitation and confusion. Patient is hemodynamically stable, not requiring any pressors. Her CBC showed WBC count of 3.6 hemoglobin is 7.9, platelets are low at 54,000. Electrolytes are relatively normal, bicarb is 34, BUN is 35 creatinine is 1.39. Patient is being followed by hematology/oncology, she was found to have significantly elevated 3 And free lambda chains, entertaining the possibility of myeloma. Patient is also being followed by nephrology for nonoliguric acute kidney inju ry. Pulmonary-huynh, the patient is on few liters nasal cannula, in no form of respiratory distress, but today what is seems to be more important is her worsening confusion patient thinks that she is in a parking. Has no clue where she is and quite confused. Objective - Vital Signs Vital signs: Vital Signs Temp 97.5 F L 03/31/20 13:35 Pulse 68 03/31/20 13:35 Resp 18 03/31/20 13:35 BP 139/68 03/31/20 13:35 Pulse Ox 98 03/31/20 13:35 Intake & Output 03/30/20 03/31/20 03/31/20 18:59 06:59 18:59 Intake Total 615.279 295 60 Output Total 7903 344 6194 Balance -959.721 -120 -1540 Weight 120.2 kg Intake: IV 120 120 60 0.9 NS 120 120 60 Intake, IV Titration 170.279 Amount Norepinephrine 4 mg In 70.279 Sodium Chloride 0.9% 250 ml @ 0.05 MCG/KG/MIN 24. 289 mls/hr IV .[id number] [place] Rx#:[id number] Piperacillin-Tazobactam 3 100 .375 gm In Sodium Chloride 0.9% 100 ml @ 25 mls/hr IVPB Q8HR [place] Rx# :[id number] Oral 325 100 Tube Feeding 75 Output: Urine 0047 027 [id number] Other: Voiding Method Indwelling Catheter Indwelling Catheter Indwelling Catheter - Exam GENERAL EXAM: Revealed 69-year-old female in no distress. On 3 liters nasal cannula. Confused, restless in bed. HEENT: PERRLA, EOMI, neck is, short obese neck, no neck masses, no JVD, moist mucous membranes. CHEST: No chest wall deformity. Symmetrical expansion. LUNGS: Equal air entry minimal crackles at the bases no rhonchi and no wheezes. CVS: Regular rate and rhythm, normal S1 and S2, no gallops, no murmurs, no rubs ABDOMEN: Obese, Soft, nontender. No hepatosplenomegaly, normal bowel sounds, no guarding or rigidity. EXTREMITIES: No clubbing, 1+ lower extremity edema, no cyanosis, 2+ pulses and upper and lower extremities. Her lower extremities are positive for chronic venous stasis changes MUSCULOSKELETAL: Muscle strength and tone normal. SKIN: No rashes CENTRAL NERVOUS SYSTEM: Extremely confused today, otherwise no gross focal deficits. And seems to be agitated and restless. PSYCHIATRIC: Anxious mood, blunt affect. - Labs CBC & Chem 7: 03/31/20 05:12 03/31/20 05:12 Labs: Abnormal Lab Results - Last 24 Hours (Table) 03/31/20 03/31/20 03/31/20 Range/Units 05:12 05:12 05:12 WBC 3.6 L (3.8-10.6) k/uL RBC 2.24 L (3.80-5.40) m/uL Hgb 7.9 L (11.4-16.0) gm/dL Hct 25.3 L (34.0-46.0) % MCV 113.0 H (80.0-100.0) fL MCH 35.2 H (25.0-35.0) pg RDW 17.4 H (11.5-15.5) % Plt Count 34 L (150-450) k/uL Lymphocytes # 0.6 L (1.0-4.8) k/uL Macrocytosis Marked A PT (9.0-12.0) sec INR (<1.2) APTT (22.0-30.0) sec Carbon Dioxide 34 H (22-30) mmol/L BUN 35 H (7-17) mg/dL Creatinine 1.39 H (0.52-1.04) mg/dL Calcium 7.8 L (8.4-10.2) mg/dL Alkaline Phosphatase 148 H (38-126) U/L Total Protein 5.6 L (6.3-8.2) g/dL Albumin 2.3 L (3.5-5.0) g/dL IgG (700.0-1600.0) mg/dL IgA (60.0-350.0) mg/dL Free [place] LC, Quant 9.52 H (0.33-1.94) mg/dL Free Lambda LC, Quant 12.90 H (0.57-2.63) mg/dL 03/31/20 03/31/20 Range/Units 05:12 05:12 WBC (3.8-10.6) k/uL RBC (3.80-5.40) m/uL Hgb (11.4-16.0) gm/dL Hct (34.0-46.0) % MCV (80.0-100.0) fL MCH (25.0-35.0) pg RDW (11.5-15.5) % Plt Count (150-450) k/uL Lymphocytes # (1.0-4.8) k/uL Macrocytosis PT 12.1 H (9.0-12.0) sec INR 1.2 H (<1.2) APTT 31.8 H (22.0-30.0) sec Carbon Dioxide (22-30) mmol/L BUN (7-17) mg/dL Creatinine (0.52-1.04) mg/dL Calcium (8.4-10.2) mg/dL Alkaline Phosphatase (38-126) U/L Total Protein (6.3-8.2) g/dL Albumin (3.5-5.0) g/dL IgG 1810.0 H (700.0-1600.0) mg/dL IgA 410.0 H (60.0-350.0) mg/dL Free [place] LC, Quant (0.33-1.94) mg/dL Free Lambda LC, Quant (0.57-2.63) mg/dL Microbiology - Last 24 Hours (Table) 03/27/20 23:20 Blood Culture - Preliminary Blood No Growth after 72 hours 03/30/20 08:51 Gram Stain - Preliminary Sputum Assessment and Plan Assessment: #1. Acute on chronic hypoxemic respiratory failure multifactorial, likely related to possibility of pneumonia, and acute exacerbation of CHF with d iastolic dysfunction. COVID 19 PCR negative, however Covid 19 is not entirely ruled out. It is still possible #2. Acute hypercapnic respiratory failure related to acute exacerbation of CHF and possibility of pneumonia, healthcare acquired. Positive pro calcitonin level. And I also suspect some component of obstructive sleep apnea syndrome. #3. Hypotension, possibly hypovolemic, secondary to aggressive diuresis. improved, patient did not require any pressors. #4. Altered mental status, metabolic encephalopathy, secondary to hypoxemia and hypercapnia. #5. Obstructive sleep apnea with nocturnal desaturation however patient was unable to complete a sleep study, unclear if she is still compliant with CPAP, but does wear home O2 at 2-3 L/m #6. Morbid obesity #7. Chronic pain syndrome #8. History of COPD with chronic hypoxic respiratory failure #9. History of narcolepsy #10. Hypertension #11. Chronic kidney disease, unspecified #12. History of renal cell cancer with history of right nephrectomy in 1971 #13. Macrocytic anemia #14. Chronic back pain, with history of lumbar disc disease, lumbar compression fracture #15. Gait dysfunction #16. Coronary artery disease with previous history of bypass grafting #17. History of myocardial infarction #18. History of paroxysmal atrial fibrillation, on Eliquis, and placement of permanent pacemaker #19. Poor baseline functional performance, gait dysfunction, patient is a resident of a local alf #20 abnormal protein electrophoresis, patient may have underlying myeloma, being addressed by hematology/oncology on the case. Recommendation: Continue antibiotics. Continue diuretics . Continue bronchodilators. Continue BiPAP. Mostly at night or as needed. Continue to Monitor in the ICU Initiated a trial of Haldol. And if the patient responds well to Haldol, we'll continue otherwise patient will be treated for her anxiety and agitation and restlessness with benzodiazepine.. Overall prognosis remains extremely poor and guarded. Time with Patient: Less than 30
--- NOTE | 2020-03-31 14:31 | P.PN ---
Subjective Progress Note Date: 03/31/20 Principal diagnosis: This is a 69-year-old female patient with a past medical history significant for coronary artery disease status post CABG, paroxysmal atrial fibrillation, status post permanent pacemaker implantation, chronic diastolic heart failure, chronic obstructive pulmonary disease, osteoarthritis, hypertension and dyslipidemia. The patient presented to the emergency department here at [facility] with complaints of respiratory distress, altered mental status and bleeding from her mouth. On arrival to the emergency department she was febrile with a temperature of 100.7F, she was hypotensive with blood pressure of 97/82, pulse rate of 83 and oxygen saturations were 96% on a nonrebreather mask. Her initial chest x-ray showed pulmonary edema and bilateral lower lobe pneumonia. For follow-up a computed tomography scan of her chest was completed which demonstrated extensive pulmonary airspace edema, and no evidence of pulmonary em bolism. Computed tomography scan of her brain was negative. A 12-lead EKG was completed which showed an atrial paced rhythm heart rate 60 bpm. Initial laboratory results demonstrated a hemoglobin of 8.9, troponin to be negative, proBNP level 2650. She tested negative for COVID 19 virus. Due to her respiratory distress she was placed on BiPAP support and was started on antibiotics and IV Lasix. She was admitted to the hospital for further evaluation and treatment recommendations and cardiology was consulted for pulmonary edema and congestive heart failure. On 03/31/2020 the patient was seen in follow-up at her bedside in the intensive care unit. The patient is restless and still having episodes of confusion. She is currently is hemodynamically stable and is on no inotropic or pressor support. Oxygen saturations are 98% on 3 L nasal cannula. She did use her BiPAP last night with a setting of 14/70 and FiO2 35%. Currently denies any complaints of pain or shortness of breath. Her bedside telemetry showing normal sinus rhythm heart rate 63. Laboratory results this morning show a WBC 3.6, hemoglobin 7.9, platelets 34, PT 12.1, INR 1.2, PTT 31.8, BUN 35 and creatinine 1.39. Chest x-ray this morning demonstrates cardiomegaly, and continuing bilateral bases, worsening on the right. She remains on Zosyn for antibiotic coverage. Metoprolol tartrate 25 mg by mouth 3 times a day was started on 03/28/2020 as her blood pressure has improved. Anticoagulation remains on hold due to her thrombocytopenia. Objective - Vital Signs Vital signs: Vital Signs Temp 97.5 F L 03/31/20 13:35 Pulse 68 03/31/20 13:35 Resp 18 03/31/20 13:35 BP 139/68 03/31/20 13:35 Pulse Ox 98 03/31/20 13:35 Intake & Output 03/30/20 03/31/20 03/31/20 18:59 06:59 18:59 Intake Total 615.279 295 60 Output Total 1112 696 2812 Balance -959.721 -120 -1540 Weight 120.2 kg Intake: IV 120 120 60 0.9 NS 120 120 60 Intake, IV Titration 170.279 Amount Norepinephrine 4 mg In 70.279 Sodium Chloride 0.9% 250 ml @ 0.05 MCG/KG/MIN 24. 289 mls/hr IV .[id number] [facility] Rx#:[id number] Piperacillin-Tazobactam 3 100 .375 gm In Sodium Chloride 0.9% 100 ml @ 25 mls/hr IVPB Q8HR HI Rx# :[id number] Oral 325 100 Tube Feeding 75 Output: Urine 6676 115 3726 Other: Voiding Method Indwelling Catheter Indwelling Catheter Indwelling Catheter - Exam Patient is a 69-year-old female patient who is resting in bed in the intensive care unit. Episodes of restlessness and confusion. Oxygen saturations are 98% on 3 L nasal cannula. She is in no acute distress. - Constitutional General appearance: Present: cooperative, morbidly obese, no acute distress - EENT Eyes: Present: PERRLA. Absent: ptosis ENT: Present: normal oropharynx - Neck Details: Neck is supple, no JVD. - Respiratory Details: Lung sounds essentially clear to her bilateral upper lobes, few scattered crackles to her bilateral bases. No wheezes or rhonchi. Respirations are symmetrical and nonlabored. - Cardiovascular Details: Regular rhythm and rate. S1 and S2 present, negative for S3, gallop or murmur. - Gastrointestinal Gastrointestinal Comment(s): Abdomen is soft, nontender and nondistended. Normal bowel sounds present in all 4 abdominal quadrants. No guarding or rigidity. No organomegaly appreciated. - Integumentary Integumentary Comment(s): Skin is warm and dry. No clubbing or cyanosis is present. Integumentary: Absent: rash - Neurologic Neurologic: Present: CNII-XII intact - Musculoskeletal Musculoskeletal: Present: generalized weakness, strength equal bilaterally (Which 1) - Psychiatric Psychiatric Comment(s): Episodes of confusion. - Allied health notes Allied health notes reviewed: nursing - Labs CBC & Chem 7: 03/31/20 05:12 03/31/20 05:12 Labs: Abnormal Lab Results - Last 24 Hours (Table) 03/31/20 03/31/20 03/31/20 Range/Units 05:12 05:12 05:12 WBC 3.6 L (3.8-10.6) k/uL RBC 2.24 L (3.80-5.40) m/uL Hgb 7.9 L (11.4-16.0) gm/dL Hct 25.3 L (34.0-46.0) % MCV 113.0 H (80.0-100.0) fL MCH 35.2 H (25.0-35.0) pg RDW 17.4 H (11.5-15.5) % Plt Count 34 L (150-450) k/uL Lymphocytes # 0.6 L (1.0-4.8) k/uL Macrocytosis Marked A PT (9.0-12.0) sec INR (<1.2) APTT (22.0-30.0) sec Carbon Dioxide 34 H (22-30) mmol/L BUN 35 H (7-17) mg/dL Creatinine 1.39 H (0.52-1.04) mg/dL Calcium 7.8 L (8.4-10.2) mg/dL Alkaline Phosphatase 148 H (38-126) U/L Total Protein 5.6 L (6.3-8.2) g/dL Albumin 2.3 L (3.5-5.0) g/dL IgG (700.0-1600.0) mg/dL IgA (60.0-350.0) mg/dL Free [place] LC, Quant 9.52 H (0.33-1.94) mg/dL Free Lambda LC, Quant 12.90 H (0.57-2.63) mg/dL 03/31/20 03/31/20 Range/Units 05:12 05:12 WBC (3.8-10.6) k/uL RBC (3.80-5.40) m/uL Hgb (11.4-16.0) gm/dL Hct (34.0-46.0) % MCV (80.0-100.0) fL MCH (25.0-35.0) pg RDW (11.5-15.5) % Plt Count (150-450) k/uL Lymphocytes # (1.0-4.8) k/uL Macrocytosis PT 12.1 H (9.0-12.0) sec INR 1.2 H (<1.2) APTT 31.8 H (22.0-30.0) sec Carbon Dioxide (22-30) mmol/L BUN (7-17) mg/dL Creatinine (0.52-1.04) mg/dL Calcium (8.4-10.2) mg/dL Alkaline Phosphatase (38-126) U/L Total Protein (6.3-8.2) g/dL Albumin (3.5-5.0) g/dL IgG 1810.0 H (700.0-1600.0) mg/dL IgA 410.0 H (60.0-350.0) mg/dL Free [place] LC, Quant (0.33-1.94) mg/dL Free Lambda LC, Quant (0.57-2.63) mg/dL Microbiology - Last 24 Hours (Table) 03/27/20 23:20 Blood Culture - Preliminary Blood No Growth after 72 hours 03/30/20 08:51 Gram Stain - Preliminary Sputum - Imaging and Cardiology Chest x-ray: report reviewed, image reviewed Assessment and Plan Assessment: 1. Acute on chronic hypoxic respiratory failure, hemoptysis, hypotension, CTA negative for pulmonary embolism but does show pulmonary edema, echocardiogram sh owing preserved LV 2. systolic function but severely dilated RV with mild pulmonary hypertension, possibly secondary to pneumonia vs congestive heart failure secondary to diastolic dysfunction 3. Hypotension, elevated pro-calcitonin, febrile upon presentation, blood cultures pending, no growth after 72 hours, possible pneumonia/sepsis 4. Thrombocytopenia, acute on chronic 5. CAD status post CABG 6. Paroxysmal atrial fibrillation, on coagulation on hold due to anemia and hemoptysis 7. Status post permanent pacemaker implantation 8. Acute on chronic diastolic heart failure, echocardiogram shows EF 60-65% 9. Chronic obstructive pulmonary disease 10. Osteoarthritis 11. Dyslipidemia 12. Hypertension 13. Anemia Plan: 1. Continue to optimize medically with metoprolol tartrate 25 mg by mouth 3 times a day and statin. 2. Continue to hold anticoagulation secondary to thrombocytopenia. 3. Continue Lasix 40 mg IV daily. 4. Continue to monitor labs and chest x-rays. 5. More recommendations to follow based on patient's clinical course. Nurse practitioner note has been reviewed, I agree with a documented findings and plan of care. Patient was seen and examined. Time with Patient: Less than 30
--- NOTE | 2020-03-31 14:47 | P.PN ---
Subjective Progress Note Date: 03/31/20 Patient is lethargic and somnolent. Difficult to arouse. Increased respiratory rate, while in bed, on O2 Objective - Vital Signs Vital signs: Vital Signs Temp 97.5 F L 03/31/20 13:35 Pulse 68 03/31/20 13:35 Resp 18 03/31/20 13:35 BP 139/68 03/31/20 13:35 Pulse Ox 98 03/31/20 13:35 Intake & Output 03/30/20 03/31/20 03/31/20 18:59 06:59 18:59 Intake Total 615.279 295 60 Output Total 3215 232 8051 Balance -959.721 -120 -1540 Weight 120.2 kg Intake: IV 120 120 60 0.9 NS 120 120 60 Intake, IV Titration 170.279 Amount Norepinephrine 4 mg In 70.279 Sodium Chloride 0.9% 250 ml @ 0.05 MCG/KG/MIN 24. 289 mls/hr IV .[id number] [facility] Rx#:[id number] Piperacillin-Tazobactam 3 100 .375 gm In Sodium Chloride 0.9% 100 ml @ 25 mls/hr IVPB Q8HR HI Rx# :[id number] Oral 325 100 Tube Feeding 75 Output: Urine 6044 426 [id number] Other: Voiding Method Indwelling Catheter Indwelling Catheter Indwelling Catheter - Constitutional General appearance: Present: no acute distress - EENT Eyes: Present: PERRLA ENT: Present: normal oropharynx - Respiratory Respiratory: bilateral: rales (Right greater than left) - Cardiovascular Rhythm: irregularly irregular Heart sounds: normal: S1, S2 - Gastrointestinal General gastrointestinal: Present: normal bowel sounds, soft - Integumentary Integumentary: Present: normal - Neurologic Neurologic Comment(s): Lethargic, somnolent, difficult to arouse - Musculoskeletal Musculoskeletal: Present: generalized weakness - Labs CBC & Chem 7: 03/31/20 05:12 03/31/20 05:12 Labs: Abnormal Lab Results - Last 24 Hours (Table) 03/31/20 03/31/20 03/31/20 Range/Units 05:12 05:12 05:12 WBC 3.6 L (3.8-10.6) k/uL RBC 2.24 L (3.80-5.40) m/uL Hgb 7.9 L (11.4-16.0) gm/dL Hct 25.3 L (34.0-46.0) % MCV 113.0 H (80.0-100.0) fL MCH 35.2 H (25.0-35.0) pg RDW 17.4 H (11.5-15.5) % Plt Count 34 L (150-450) k/uL Lymphocytes # 0.6 L (1.0-4.8) k/uL Macrocytosis Marked A PT (9.0-12.0) sec INR (<1.2) APTT (22.0-30.0) sec Carbon Dioxide 34 H (22-30) mmol/L BUN 35 H (7-17) mg/dL Creatinine 1.39 H (0.52-1.04) mg/dL Calcium 7.8 L (8.4-10.2) mg/dL Alkaline Phosphatase 148 H (38-126) U/L Total Protein 5.6 L (6.3-8.2) g/dL Albumin 2.3 L (3.5-5.0) g/dL IgG (700.0-1600.0) mg/dL IgA (60.0-350.0) mg/dL Free [place] LC, Quant 9.52 H (0.33-1.94) mg/dL Free Lambda LC, Quant 12.90 H (0.57-2.63) mg/dL 03/31/20 03/31/20 Range/Units 05:12 05:12 WBC (3.8-10.6) k/uL RBC (3.80-5.40) m/uL Hgb (11.4-16.0) gm/dL Hct (34.0-46.0) % MCV (80.0-100.0) fL MCH (25.0-35.0) pg RDW (11.5-15.5) % Plt Count (150-450) k/uL Lymphocytes # (1.0-4.8) k/uL Macrocytosis PT 12.1 H (9.0-12.0) sec INR 1.2 H (<1.2) APTT 31.8 H (22.0-30.0) sec Carbon Dioxide (22-30) mmol/L BUN (7-17) mg/dL Creatinine (0.52-1.04) mg/dL Calcium (8.4-10.2) mg/dL Alkaline Phosphatase (38-126) U/L Total Protein (6.3-8.2) g/dL Albumin (3.5-5.0) g/dL IgG 1810.0 H (700.0-1600.0) mg/dL IgA 410.0 H (60.0-350.0) mg/dL Free [place] LC, Quant (0.33-1.94) mg/dL Free Lambda LC, Quant (0.57-2.63) mg/dL Microbiology - Last 24 Hours (Table) 03/27/20 23:20 Blood Culture - Preliminary Blood No Growth after 72 hours 03/30/20 08:51 Gram Stain - Preliminary Sputum Assessment and Plan (1) Bicytopenia Narrative/Plan: Chronic, with some worsening during this admission. The patient has been worked up previously, with results indicating that the anemia is due to anemia of chronic disease, including CAD, while low platelets are related to cirrhotic liver and portal hypertension. Current drop was felt to be due to additional stress of acute illness. Repeat cytopenia workup ordered and is in progress. Results negative so far. - Continue to monitor. Transfuse to keep hemoglobin greater than 7. - Hold anticoagulation/antiplatelet agents for. Count less than 50. Transfuse to keep platelets above 10, or greater than 40-50 if actively bleeding. Current Visit: No Status: Acute Code(s): D75.89 - OTHER SPECIFIED DISEASES OF BLOOD AND BLOOD-FORMING ORGANS SNOMED Code(s): 41331243 Plan: Acute respiratory failure - appears to be due to congestive heart failure , as well as possible superimposed pneumonia. Defer to the admitting service and other consultants for continued management
--- NOTE | 2020-03-31 15:48 | P.PN ---
Progress Note - Text Progress Note Date: 03/31/20 Chief Complaint: Increased lethargy History of presenting complaint: This is a 69-year-old patient of Dr. Weiss whose chronic stable medical conditions include restless leg syndrome, GERD, renal cell carcinoma with right nephrectomy, fibromyalgia, chronic thrombocytopenia from chronic liver disease, chronic hypercapnic respiratory failure, permanent pacemaker, coronary artery disease with bypass, chronic bladder dysfunction, chronic narcolepsy, obstructive sleep apnea does not use CPAP, COPD, chronic L1 compression fracture, CHF from diastolic dysfunction EF 50-55%. Patient has been living at [facility]. Patient has chronic pain. Does follow with Dr. Rosales from pain services. Patient presented to the ER. Had been more tired lethargic. Also having some blood from the mouth. [facility] liaison informed me that patient had tooth pulled out couple of days ago. Also received eliquis. Patient had had been put on a BiPAP. Patient known to me from previous admissions. Patient is able to talk to me and communicate. Just feeling tired. Patient is a congested chest. Not really able to expectorate. Admitted with bilateral pneumonia, acute hypoxic and hypercapnic respiratory failure and sepsis. Started on BiPAP and IV cefepime. Patient also had some hemoptysis as patient was also on eliquis and also had a tooth pulled out 2 days ago.patient respiratory status worsened and had to be moved to the ICU. Thrombocytopenia from-chronic liver disease. Today-doing better. Oral intake improving. Has been on nasal cannula.. Review of systems: Was done for constitutional, cardiovascular, GI, pulmonary. relevant finding as above Active Medications Hydrocodone Bitart/Acetaminophen ([place] 10) 1 each PO Q6H PRN PRN Reason: Pain Last Admin: 03/31/20 01:12 Dose: 1 each Documented by: Hydrocodone Bitart/Acetaminophen ([place] 10) 1 each PO BID@0800,1700 [facility] Last Admin: 03/31/20 09:30 Dose: 1 each Documented by: Albuterol Sulfate (Ventolin Hfa Inhaler) 2 puff INHALATION RT-TID [facility] Last Admin: 03/31/20 12:39 Dose: 2 puff Documented by: Allopurinol (Zyloprim) 100 mg PO DAILY@0800 [facility] Last Admin: 03/31/20 09:29 Dose: 100 mg Documented by: Atorvastatin Calcium (Lipitor) 40 mg PO DAILY@1700 [facility] Last Admin: 03/30/20 15:51 Dose: 40 mg Documented by: Benzocaine (Orajel) 1 gm MM DAILY PRN PRN Reason: broken&missing teeth pain Bisacodyl (Dulcolax) 10 mg RECTAL DAILY PRN PRN Reason: Constipation Carbidopa/Levodopa (Sinemet 25-250) 1 each PO BID@0800,1700 [facility] Last Admin: 03/31/20 09:29 Dose: 1 each Documented by: Escitalopram Oxalate (Lexapro) 20 mg PO DAILY@0800 [facility] Last Admin: 03/31/20 09:29 Dose: 20 mg Documented by: Ferrous Sulfate (Feosol) 325 mg PO DAILY@0800 [facility] Last Admin: 03/31/20 09:29 Dose: 325 mg Documented by: Furosemide (Lasix) 40 mg IV DAILY [facility] Last Admin: 03/31/20 08:11 Dose: 40 mg Documented by: Gabapentin (Neurontin) 100 mg PO TID [facility] Last Admin: 03/31/20 09:28 Dose: 100 mg Documented by: Haloperidol Lactate (Haldol) 2 mg IVP Q8HR PRN PRN Reason: Agitation or Acute Psychosis Last Admin: 03/31/20 09:51 Dose: 2 mg Documented by: Piperacillin Sod/Tazobactam (Sod 3.375 gm/ Sodium Chloride) 100 mls @ 25 mls/hr IVPB Q8HR [facility] Last Admin: 03/31/20 08:11 Dose: 25 mls/hr Documented by: Loratadine (Claritin) 10 mg PO DAILY [facility] Last Admin: 03/31/20 09:29 Dose: 10 mg Documented by: Magnesium Hydroxide (Milk Of Magnesia) 2,400 mg PO Q48H PRN PRN Reason: Constipation Methyl Salicylate (Thera-Gesic Cream) 1 applic TOPICAL DAILY PRN PRN Reason: lower back pain Metoprolol Tartrate (Lopressor) 25 mg PO TID@0800,1200,2000 [facility] Last Admin: 03/31/20 12:50 Dose: 25 mg Documented by: Miscellaneous Information (Magnesium Per Protocol) 1 each MISCELLANE DAILY PRN; Protocol PRN Reason: Per Protocol Modafinil (Provigil) 100 mg PO DAILY@0800 [facility] Last Admin: 03/31/20 09:29 Dose: 100 mg Documented by: Naloxone HCl (Narcan) 0.2 mg IV Q2M PRN PRN Reason: Opioid Reversal Nitroglycerin (Nitrostat) 0.4 mg SUBLINGUAL Q5M PRN PRN Reason: Chest Pain Nystatin (Mycostatin Powder) 1 applic TOPICAL Q8H PRN PRN Reason: under breasts/groin Pantoprazole Sodium (Protonix) 40 mg PO DAILY@0700 [facility] Last Admin: 03/31/20 06:27 Dose: 40 mg Documented by: Ropinirole HCl (Requip) 2 mg PO TID@0800,1700,2100 [facility] Last Admin: 03/31/20 09:29 Dose: 2 mg Documented by: Sodium Biphosphate/Sodium Phosphate (Fleet Adult) 133 ml RECTAL DAILY PRN PRN Reason: Constipation Sodium Chloride ([place] Sea) 1 spray NASAL Q8H PRN PRN Reason: dry nose Trazodone HCl (Desyrel) 50 mg PO HS@2100 [facility] Last Admin: 03/30/20 20:22 Dose: 50 mg Documented by: Physical examination: VITAL SIGNS: 97.5, 85, 22, 138/118, 100% on 3 L GENERAL: laying in bed, arousable EYES: Pupils equal. Conjunctiva normal. HEENT: External appearance of nose and ears normal, oral cavity grossly normal. NECK: JVD unable to assess; masses not palpable. HEART: First and second heart sounds are normal; no edema. LUNGS: Respiratory rate increased; distant breath sounds. ABDOMEN: Soft, nontender, liver spleen not palpable, no masses palpable. PSYCH: [Able to answer simple questions INVESTIGATIONS, reviewed in the clinical context: White count 3.6 hemoglobin 7.9 platelets 34 bun 35 creatinine 1.39 Previous testing White count 7.6 hemoglobin 8.9 platelets 47 EKG tracing personally reviewed by me-shows atrial paced rhythm CT [place] chest-extensive pulmonary airspace/consolidation. No PE Computed tomography scan brain-without contrast-negative Chest x-ray film personally reviewed by me-bilateral infiltrates Assessment: -Bilateral pneumonia, suspect aspiration pneumonia including gram-negative organism, causing hemoptysis, POA, improving -Acute hypoxic respiratory failure from above, POA, slowly improving -Sepsis from above, POA -possible acute on chronic, Chronic congestive heart failure from diastolic dysfunction EF 50-55%, -stabilized -Chronic L1 compression fracture -COPD in a nonsmoker -Obstructive sleep apnea does not use CPAP machine -Chronic narcolepsy -Chronic bladder dysfunction with the stimulator urine-coronary artery disease with a history of bypass -Permanent pacemaker -Chronic hypercapnic respiratory failure on oxygen -Chronic fibromyalgia -Renal cell carcinoma with right nephrectomy -GERD -restless leg syndrome -Patient had tooth extracted couple of days ago. -Acute kidney injury, likely prerenal -Chronic thrombocytopenia from chronic liver disease Plan: Patient has been on IV Zosyn now. BiPAP requirement has come down. Patient is becoming prerenal. Patient is scheduled oral Lasix by tomorrow. Patient be moved to ICU. Switch to oral antibiotics hopefully next 24 hours.
[2020-03-31 16:56] LABS: % Iron Saturation 26.51 (12.00-45.00); Iron 57 ug/dL (50-170); Total Iron Binding Capacity 215 ug/dL (228-460)
[2020-03-31 17:05] LABS: Ferritin 232.8 ng/mL (10.0-291.0); Folate, Serum 3.9 ng/mL
[2020-03-31] MEDS: ATORVASTATIN 40 MG TAB PO SCH (17:26)
[2020-03-31] MEDS: traZODone HCL 50 MG TAB PO SCH (19:44)
[2020-03-31] MEDS: CEFEPIME 2 GM in SODIUM CHLORIDE 0.9% 100 ML IVPB SCH (19:51)
[2020-04-01] MEDS: HALOPERIDOL LACTATE 5 MG/ML 1 ML VIAL IVP PRN (01:32)
[2020-04-01] MEDS ORDERED: FUROSEMIDE 10 MG/ML 4 ML VIAL IV STA (03:35)
[2020-04-01] MEDS: PANTOPRAZOLE 40 MG TABLET PO SCH (05:51)
[2020-04-01] MEDS: ALBUTEROL HFA INHALER INHALATION SCH ×3 (07:54→21:08)
[2020-04-01] MEDS: PIPERACILLIN-TAZOBACTAM 3.375 GM in SODIUM CHLORIDE 0.9% 100 ML IVPB SCH ×2 (08:33→16:28)
[2020-04-01] MEDS: HYDROcodone/APAP 10-325MG 1 EACH TAB PO SCH ×2 (08:34→16:29)
[2020-04-01] MEDS: CARBIDOPA-LEVODOPA 25-250 MG 1 EACH TAB PO SCH ×2 (08:34→16:29)
[2020-04-01] MEDS: METOPROLOL TARTRATE 25 MG TAB PO SCH ×3 (08:34→20:10)
[2020-04-01] MEDS: FERROUS SULFATE 325 MG TAB PO SCH (08:34)
[2020-04-01] MEDS: GABAPENTIN 100 MG CAP PO SCH ×3 (08:34→21:55)
[2020-04-01] MEDS: MODAFINIL 100 MG TAB PO SCH (08:34)
[2020-04-01] MEDS: ESCITALOPRAM 20 MG TAB PO SCH (08:34)
[2020-04-01] MEDS: ALLOPURINOL 100 MG TAB PO SCH (08:34)
[2020-04-01] MEDS: LORATADINE 10 MG TAB PO SCH (08:34)
[2020-04-01] MEDS: FUROSEMIDE 10 MG/ML 4 ML VIAL IV SCH (08:35)
--- NOTE | 2020-04-01 11:53 | P.PN ---
Subjective Progress Note Date: 04/01/20 Principal diagnosis: Acute hypoxic respiratory failure secondary to pneumonia and acute diastolic congestive heart failure 69-year-old white female patient of resident of a local detention with past medical history of CAD status post bypass grafting, obstructive sleep apnea on CPAP therapy and home oxygen, history of COPD, narcolepsy, chronic kidney disease with history of previous nephrectomy and bladder stimulator placement. Other history includes chronic back pain, frequent falls, osteoporosis, paroxysmal atrial fibrillation. Patient was brought into the hospital per EMS on 03/27/2020 for evaluation of altered mental status, shortness of breath and some oral cavity bleeding. Patient was very confused, agitated, tachypneic, and had some dried blood around the lips. She is a poor historian, she did have low-grade fever with a temp of 100.7F, she was tachypneic, she was placed on BiPAP support. ABG was obtained showing pO2 111, pCO2 46, pH of 7.42, mild CO2 retention, was done on FiO2 of 45%. White blood cell count was within normal limits at 7.6, hemoglobin was 8.9, INR was 1.2, sodium is 142, potassium is 4.3, chloride is 106, CO2 31, BUN was 27, creatinine is 1.02, plasma lactic acid was normal at 1.7, troponin was less than 0.012, proBNP was 2650. Carvajal virus PCR was negative, urinalysis was negative for any sign of infection. Chest x-ray s howed cardiomegaly, pulmonary edema, bilateral airspace infiltrates in the lower lobes, presence of a left axillary pacemaker. Brain CT showed no intracranial abnormality. CT angiogram of the chest showed extensive pulmonary airspace edema, with the possibility of CHF or ARDS, no evidence of pulmonary embolism. Patient is already on Eliquis for history of paroxysmal atrial fibrillation. She was hypotensive in the emergency department with a blood pressure as low as 72/35 on presentation, which seems to have recovered, lactic acid is within normal limits, she was started on empiric antibiotics, Cefepime and Vancomycin, Protonix at the level is pending, blood cultures have been sent Patient was reevaluated today on 03/29/20, patient was transferred last night to the ICU because she was noted to have low blood pressure, and her O2 saturation was marginal. Patient received a fluid bolus, did not require any pressors. Her ABG showed a pO2 of 86 pCO2 of 51 pH of 7.37, patient was placed on BiPAP, and overnight did not require intubation or mechanical ventilation. I saw this patient this morning in the ICU, she seems to be doing reasonably well. Patient denies any shortness of breath, she is now back on her nasal cannula although she was on BiPAP overnight. Patient is known to have history of obstructive sleep apnea syndrome, and supposed to be on BiPAP at home. All labs today were reviewed, hemoglobin is 8. WBC count is 4.9. Basic metabolic profile is normal, slight worsening in her renal profile with creatinine up to 1.26 most likely related to diuretics. Remains on Lasix at 40 mg IV push every 12 hours, follow-up chest x-ray today showed cardiomegaly, low lung volumes, and bilateral lower lobe infiltrates. Differential diagnoses includes congestive heart failu re, pneumonia, possible covid 19 pneumonitis, although her initial screening was negative. Pro-calcitonin on admission was elevated at 1.09. Hence strongly suspect some component of pneumonia. Reevaluated today on 03/30/20, patient remains in the ICU, presently on nasal cannula, but she was on BiPAP last night. Her FiO2 was 45% IPAP of 14 and EPAP of 7 today on 3 L nasal cannula and her O2 saturation is 93%. Patient continues to have significantly abnormal chest x-ray suspicious for underlying pneumonia, underlying diastolic congestive heart failure is not entirely ruled out. Patient remains on Zosyn, and she remains on Lasix. Vancomycin and cefepime were discontinued. Patient is not requiring any pressors. She seems to be comfortable, in no form of respiratory distress at present. WBC count is 5 hemoglobin is 8.7. Basic metabolic profile is normal renal functioning is improving compared to yesterday, creatinine is 1.20 and it was 1.26 yesterday. Chest x-ray is showing slight improvement in her retrocardiac opacity, and right basilar opacity with trace of pleural pulmonary vascular congestion. And trace of pleural effusions. Patient was reevaluated today on 03/31/20, remains in the ICU, presently on nasal cannula, however on BiPAP at night. His BiPAP settings are 14/7 and 55%. Today she is on 4 L nasal cannula. Patient remains confused, restless, agitated, and recommended a trial of Haldol, and recommended stopping the Xanax for now. Depending on her response to Haldol, we'll decide whether to continue Haldol or use Ativan on this patient for intermittent episodes of agitation and confusion. Patient is hemodynamically stable, not requiring any pressors. Her CBC showed WBC count of 3.6 hemoglobin is 7.9, platelets are low at 54,000. Electrolytes are relatively normal, bicarb is 34, BUN is 35 creatinine is 1.39. Patient is being followed by hematology/oncology, she was found to have significantly elevated 3 And free lambda chains, entertaining the possibility of myeloma. Patient is also being followed by nephrology for nonoliguric acute kidney inj ury. Pulmonary-huynh, the patient is on few liters nasal cannula, in no form of respiratory distress, but today what is seems to be more important is her worsening confusion patient thinks that she is in a parking. Has no clue where she is and quite confused. The patient is seen today 04/01/2020 in follow-up on the selective care unit. She is currently resting comfortably in bed. A bit less restless today compared to yesterday. She has been initiated on Haldol. She is currently maintaining O2 saturations in the 90s on 4 L/m per nasal cannula. She's afebrile. Hemodynamically stable. Sputum culture positive for Frieda only. Blood cultures revealed no growth. No new labs today. She was given additional IV Lasix today. She remains on Zosyn. Objective - Vital Signs Vital signs: Vital Signs Temp 97.5 F L 04/01/20 08:10 Pulse 64 04/01/20 08:10 Resp 20 04/01/20 08:10 BP 115/56 04/01/20 08:10 Pulse Ox 97 04/01/20 08:10 Intake & Output 03/31/20 04/01/20 04/01/20 18:59 06:59 18:59 Intake Total 60 Output Total 2550 300 1000 Balance -2490 -300 -1000 Weight 169.5 kg Intake: IV 60 0.9 NS 60 Output: Urine 2550 300 1000 Other: Voiding Method Indwelling Catheter Indwelling Catheter Indwelling Catheter - Exam GENERAL EXAM: Revealed a morbidly obese 69-year-old female in no acute distress. On 4 liters nasal cannula. Confused. HEENT: PERRLA, EOMI, neck is, short obese neck, no neck masses, no JVD, moist mucous membranes. CHEST: No chest wall deformity. Symmetrical expansion. LUNGS: Equal air entry minimal crackles at the bases no rhonchi and no wheezes. CVS: Regular rate and rhythm, normal S1 and S2, no gallops, no murmurs, no rubs ABDOMEN: Obese, Soft, nontender. No hepatosplenomegaly, normal bowel sounds, no guarding or rigidity. EXTREMITIES: No clubbing, 1+ lower extremity edema, no cyanosis, 2+ pulses and upper and lower extremities. Her lower extremities are positive for chronic ve nous stasis changes MUSCULOSKELETAL: Muscle strength and tone normal. SKIN: No rashes CENTRAL NERVOUS SYSTEM: Extremely confused today, otherwise no gross focal deficits. PSYCHIATRIC: Anxious mood, blunt affect. - Labs CBC & Chem 7: 03/31/20 05:12 03/31/20 05:12 Labs: Abnormal Lab Results - Last 24 Hours (Table) 03/31/20 Range/Units 05:12 TIBC 215 L (228-460) ug/dL Microbiology - Last 24 Hours (Table) 03/30/20 08:51 Gram Stain - Final Sputum Sputum Culture - Final Frieda albicans 03/27/20 23:20 Blood Culture - Preliminary Blood No Growth after 96 hours Assessment and Plan Assessment: #1. Acute on chronic hypoxemic respiratory failure multifactorial, likely related to possibility of pneumonia, and acute exacerbation of CHF with diastolic dysfunction. COVID 19 PCR negative, however Covid 19 is not entirely ruled out. It is still possible #2. Acute hypercapnic respiratory failure related to acute exacerbation of CHF and possibility of pneumonia, healthcare acquired. Positive pro calcitonin level. And I also suspect some component of obstructive sleep apnea syndrome. #3. Hypotension, possibly hypovolemic, secondary to aggressive diuresis. improved, patient did not require any pressors. #4. Altered mental status, metabolic encephalopathy, secondary to hypoxemia and hypercapnia. #5. Obstructive sleep apnea with nocturnal desaturation however patient was unable to complete a sleep study, unclear if she is still compliant with CPAP, but does wear home O2 at 2-3 L/m #6. Morbid obesity #7. Chronic pain syndrome #8. History of COPD with chronic hypoxic respiratory failure #9. History of narcolepsy #10. Hypertension #11. Chronic kidney disease, unspecified #12. History of renal cell cancer with history of right nephrectomy in 1971 #13. Macrocytic anemia #14. Chronic back pain, with history of lumbar disc disease, lumbar compression fracture #15. Gait dysfunction #16. Coronary artery disease with previous history of bypass grafting #17. History of myocardial infarction #18. History of paroxysmal atrial fibrillation, on Eliquis, and placement of permanent pacemaker #19. Poor baseline functional performance, gait dysfunction, patient is a resident of a local detention #20 abnormal protein electrophoresis, patient may have underlying myeloma, being addressed by hematology/oncology on the case. Recommendation: The patient was seen and evaluated by Dr. James Currently stable from the pulmonary and critical care standpoint Titrate down the FiO2 as tolerated Continue BiPAP support as needed Appears less restless with Haldol Continued on IV diuretics Overall prognosis quite guarded and poor We'll continue to follow I, the cosigning physician, performed a history & physical examination of the patient. Lungs sounds with crackles in the bilateral posterior bases. Maintaining good O2 saturations in the 90s on 4 L/m per nasal cannula. I disc ussed the assessment and plan of care with my nurse practitioner, Pretty Arthur. I attest to the above note as dictated by her.
--- NOTE | 2020-04-01 12:29 | P.PN ---
Subjective Progress Note Date: 04/01/20 is a 69-year-old female patient with a past medical history significant for coronary artery disease status post CABG, paroxysmal atrial fibrillation, status post permanent pacemaker implantation, chronic diastolic heart failure, chronic obstructive pulmonary disease, osteoarthritis, hypertension and dyslipidemia. The patient presented to the emergency department here at [facility] with complaints of respiratory distress, altered mental status and bleeding from her mouth. On arrival to the emergency department she was febrile with a temperature of 100.7F, she was hypotensive with blood pressure of 97/82, pulse rate of 83 and oxygen saturations were 96% on a nonrebreather mask. Her initial chest x-ray showed pulmonary edema and bilateral lower lobe pneumonia. For follow-up a computed tomography scan of her chest was completed which demonstrated extensive pulmonary airspace edema, and no evidence of pulmonary embolism. Computed tomography scan of her brain was negative. A 12-lead EKG was completed which showed an atrial paced rhythm heart rate 60 bpm. Initial laboratory results demonstrated a hemoglobin of 8.9, troponin to be negative, proBNP level 2650. She tested negative for COVID 19 virus. Due to her respiratory distress she was placed on BiPAP support and was started on antibiotics and IV Lasix. She was admitted to the hospital for further evaluation and treatment recommendations and cardiology was consulted for pulmonary edema and congestive heart failure. Patient was seen and examined yesterday in the intensive care unit, continued to be restless and having episodes of confusion, hemodynamically stable with no pressor support. Ant icoagulation continues to be on hold. Today the patient was seen and examined on the telemetry unit. Resting comfortably in bed, appears to be less restless today. Hemodynamically stable, blood cultures did not reveal any growth, continues to be on IV Lasix. BMP pending Objective - Vital Signs Vital signs: Vital Signs Temp 97.5 F L 04/01/20 08:10 Pulse 64 04/01/20 08:10 Resp 20 04/01/20 08:10 BP 115/56 04/01/20 08:10 Pulse Ox 97 04/01/20 08:10 Intake & Output 03/31/20 04/01/20 04/01/20 18:59 06:59 18:59 Intake Total 60 Output Total 2550 300 1000 Balance -2490 -300 -1000 Weight 169.5 kg Intake: IV 60 0.9 NS 60 Output: Urine 2550 300 1000 Other: Voiding Method Indwelling Catheter Indwelling Catheter Indwelling Catheter - Exam GENERAL EXAM: Revealed a morbidly obese 69-year-old female in no acute distress. On 4 liters nasal cannula. Confused. HEENT: PERRLA, EOMI, neck is, short obese neck, no neck masses, no JVD, moist mucous membranes. CHEST: No chest wall deformity. Symmetrical expansion. LUNGS: Equal air entry minimal crackles at the bases no rhonchi and no wheezes. CVS: Regular rate and rhythm, normal S1 and S2, no gallops, no murmurs, no rubs ABDOMEN: Obese, Soft, nontender. No hepatosplenomegaly, normal bowel sounds, no guarding or rigidity. EXTREMITIES: No clubbing, 1+ lower extremity edema, no cyanosis, 2+ pulses and upper and lower extremities. Her lower extremities are positive for chronic venous stasis changes MUSCULOSKELETAL: Muscle strength and tone normal. SKIN: No rashes CENTRAL NERVOUS SYSTEM: Extremely confused today, otherwise no gross focal deficits. PSYCHIATRIC: Anxious mood, blunt affect. - Labs CBC & Chem 7: 03/31/20 05:12 03/31/20 05:12 Labs: Abnormal Lab Results - Last 24 Hours (Table) 03/31/20 Range/Units 05:12 TIBC 215 L (228-460) ug/dL Microbiology - Last 24 Hours (Table) 03/30/20 08:51 Gram Stain - Final Sputum Sputum Culture - Final Frieda albicans 03/27/20 23:20 Blood Culture - Preliminary Blood No Growth after 96 hours Assessment and Plan Plan: Assessment and plan: 1. Acute on chronic hypoxic respiratory failure, hemoptysis, hypotension, CTA negative for pulmonary embolism but does show pulmonary edema, echocardiogram showing preserved LV 2. systolic function but severely dilated RV with mild pulmonary hypertension, possibly secondary to pneumonia vs congestive heart failure secondary to diastolic dysfunction 3. Hypotension, elevated pro-calcitonin, febrile upon presentation, blood cultures pending, no growth after 72 hours, possible pneumonia/sepsis 4. Thrombocytopenia, acute on chronic 5. CAD status post CABG 6. Paroxysmal atrial fibrillation, on coagulation on hold due to anemia and hemoptysis 7. Status post permanent pacemaker implantation 8. Acute on chronic diastolic heart failure, echocardiogram shows EF 60-65% 9. Chronic obstructive pulmonary disease 10. Osteoarthritis 11. Dyslipidemia 12. Hypertension 13. Anemia Plan Cardiology's perspective, we'll continue IV diuretics, continue to monitor her lytes BUN and creatinine. DNP note has been reviewed, I agree with a documented findings and plan of care. Patient was seen and examined.
--- NOTE | 2020-04-01 13:00 | P.PN ---
Subjective Progress Note Date: 04/01/20 Follow-up for acute kidney injury. Objective - Vital Signs Vital signs: Vital Signs Temp 97.3 F L 04/01/20 12:00 Pulse 60 04/01/20 12:00 Resp 19 04/01/20 12:00 BP 96/49 04/01/20 12:00 Pulse Ox 99 04/01/20 12:00 Intake & Output 03/31/20 04/01/20 04/01/20 18:59 06:59 18:59 Intake Total 60 Output Total 2550 300 1000 Balance -2490 -300 -1000 Weight 169.5 kg Intake: IV 60 0.9 NS 60 Output: Urine 2550 300 1000 Other: Voiding Method Indwelling Catheter Indwelling Catheter Indwelling Catheter - Exam Limited exam secondary to COVID pandemic and to limit PPE. - Labs CBC & Chem 7: 03/31/20 05:12 03/31/20 05:12 Labs: Abnormal Lab Results - Last 24 Hours (Table) 03/31/20 Range/Units 05:12 TIBC 215 L (228-460) ug/dL Microbiology - Last 24 Hours (Table) 03/30/20 08:51 Gram Stain - Final Sputum Sputum Culture - Final Frieda albicans 03/27/20 23:20 Blood Culture - Preliminary Blood No Growth after 96 hours Assessment and Plan Assessment: #1 nonoliguric acute kidney injury multifactorial. Baseline creatinine 1.2 MG per DL. -Prerenal secondary to over diuresis -Ischemic ATN because of low blood pressures and contrast. #2 pneumonia on antibiotics, covid negative #3 diastolic CHF #4 acute respiratory failure on as needed BiPAP #5 chronic kidney disease stage III with a baseline creatinine of 1.2 MG per DL secondary to solitary left kidney. Plan: #1 continue with Lasix decreased to 20 mg IV daily. #2 monitor renal function and urine output. #3 avoid nephrotoxic agents and hypotensive episodes.
[2020-04-01] MEDS: ATORVASTATIN 40 MG TAB PO SCH (16:29)
--- NOTE | 2020-04-01 18:57 | P.PN ---
Progress Note - Text Progress Note Date: 04/01/20 Chief Complaint: Increased lethargy History of presenting complaint: This is a 69-year-old patient of Dr. Weiss whose chronic stable medical conditions include restless leg syndrome, GERD, renal cell carcinoma with right nephrectomy, fibromyalgia, chronic thrombocytopenia from chronic liver disease, chronic hypercapnic respiratory failure, permanent pacemaker, coronary artery disease with bypass, chronic bladder dysfunction, chronic narcolepsy, obstructive sleep apnea does not use CPAP, COPD, chronic L1 compression fracture, CHF from diastolic dysfunction EF 50-55%. Patient has been living at [facility]. Patient has chronic pain. Does follow with Dr. Rosales from pain services. Patient presented to the ER. Had been more tired lethargic. Also having some blood from the mouth. [facility] liaison informed me that patient had tooth pulled out couple of days ago. Also received eliquis. Patient had had been put on a BiPAP. Patient known to me from previous admissions. Patient is able to talk to me and communicate. Just feeling tired. Patient is a congested chest. Not really able to expectorate. Admitted with bilateral pneumonia, acute hypoxic and hypercapnic respiratory failure and sepsis. Started on BiPAP and IV cefepime. Patient also had some hemoptysis as patient was also on eliquis and also had a tooth pulled out 2 days ago.patient respiratory status worsened and had to be moved to the ICU. Thrombocytopenia from-chronic liver disease. Today-no new issues. Does tolerate her diet. Her nasal cannula. Review of systems: Was done for constitutional, cardiovascular, GI, pulmonary. relevant finding as above Active Medications Hydrocodone Bitart/Acetaminophen ([place] 10) 1 each PO Q6H PRN PRN Reason: Pain Last Admin: 03/31/20 01:12 Dose: 1 each Documented by: Hydrocodone Bitart/Acetaminophen ([place] 10) 1 each PO BID@0800,1700 [facility] Last Admin: 04/01/20 16:29 Dose: 1 each Documented by: Albuterol Sulfate (Ventolin Hfa Inhaler) 2 puff INHALATION RT-TID [facility] Last Admin: 04/01/20 11:26 Dose: 2 puff Documented by: Allopurinol (Zyloprim) 100 mg PO DAILY@0800 [facility] Last Admin: 04/01/20 08:34 Dose: 100 mg Documented by: Atorvastatin Calcium (Lipitor) 40 mg PO DAILY@1700 [facility] Last Admin: 04/01/20 16:29 Dose: 40 mg Documented by: Benzocaine (Orajel) 1 gm MM DAILY PRN PRN Reason: broken&missing teeth pain Bisacodyl (Dulcolax) 10 mg RECTAL DAILY PRN PRN Reason: Constipation Carbidopa/Levodopa (Sinemet 25-250) 1 each PO BID@0800,1700 [facility] Last Admin: 04/01/20 16:29 Dose: 1 each Documented by: Escitalopram Oxalate (Lexapro) 20 mg PO DAILY@0800 [facility] Last Admin: 04/01/20 08:34 Dose: 20 mg Documented by: Ferrous Sulfate (Feosol) 325 mg PO DAILY@0800 [facility] Last Admin: 04/01/20 08:34 Dose: 325 mg Documented by: Furosemide (Lasix) 20 mg IV DAILY [facility] Gabapentin (Neurontin) 100 mg PO TID [facility] Last Admin: 04/01/20 16:29 Dose: 100 mg Documented by: Haloperidol Lactate (Haldol) 2 mg IVP Q8HR PRN PRN Reason: Agitation or Acute Psychosis Last Admin: 04/01/20 01:32 Dose: 2 mg Documented by: Piperacillin Sod/Tazobactam (Sod 3.375 gm/ Sodium Chloride) 100 mls @ 25 mls/hr IVPB Q8HR [facility] Last Admin: 04/01/20 16:28 Dose: 25 mls/hr Documented by: Loratadine (Claritin) 10 mg PO DAILY [facility] Last Admin: 04/01/20 08:34 Dose: 10 mg Documented by: Magnesium Hydroxide (Milk Of Magnesia) 2,400 mg PO Q48H PRN PRN Reason: Constipation Methyl Salicylate (Thera-Gesic Cream) 1 applic TOPICAL DAILY PRN PRN Reason: lower back pain Metoprolol Tartrate (Lopressor) 25 mg PO TID@0800,1200,2000 [facility] Last Admin: 04/01/20 14:05 Dose: Not Given Documented by: Miscellaneous Information (Magnesium Per Protocol) 1 each MISCELLANE DAILY PRN; Protocol PRN Reason: Per Protocol Modafinil (Provigil) 100 mg PO DAILY@0800 [facility] Last Admin: 04/01/20 08:34 Dose: 100 mg Documented by: Naloxone HCl (Narcan) 0.2 mg IV Q2M PRN PRN Reason: Opioid Reversal Nitroglycerin (Nitrostat) 0.4 mg SUBLINGUAL Q5M PRN PRN Reason: Chest Pain Nystatin (Mycostatin Powder) 1 applic TOPICAL Q8H PRN PRN Reason: under breasts/groin Pantoprazole Sodium (Protonix) 40 mg PO DAILY@0700 [facility] Last Admin: 04/01/20 05:51 Dose: 40 mg Documented by: Ropinirole HCl (Requip) 2 mg PO TID@0800,1700,2100 [facility] Last Admin: 04/01/20 16:29 Dose: 2 mg Documented by: Sodium Biphosphate/Sodium Phosphate (Fleet Adult) 133 ml RECTAL DAILY PRN PRN Reason: Constipation Sodium Chloride ([place]) 1 spray NASAL Q8H PRN PRN Reason: dry nose Trazodone HCl (Desyrel) 50 mg PO HS@2100 [facility] Last Admin: 03/31/20 19:44 Dose: 50 mg Documented by: Physical examination: VITAL SIGNS: 97.3, 60, was 19, 96/49, 99% on 4 L GENERAL: laying in bed, arousable EYES: Pupils equal. Conjunctiva normal. HEENT: External appearance of nose and ears normal, oral cavity grossly normal. NECK: JVD unable to assess; masses not palpable. HEART: First and second heart sounds are normal; no edema. LUNGS: Respiratory rate increased; distant breath sounds. ABDOMEN: Soft, nontender, liver spleen not palpable, no masses palpable. PSYCH: [Able to answer simple questions INVESTIGATIONS, reviewed in the clinical context: White count 3.6 hemoglobin 7.9 platelets 34 bun 35 creatinine 1.39 Previous testing White count 7.6 hemoglobin 8.9 platelets 47 EKG tracing personally reviewed by me-shows atrial paced rhythm CT [place] chest-extensive pulmonary airspace/consolidation. No PE Computed tomography scan brain-without contrast-negative Chest x-ray film personally reviewed by me-bilateral infiltrates Assessment: -Bilateral pneumonia, suspect aspiration pneumonia including gram-negative organism, causing hemoptysis, POA, improving -Acute hypoxic respiratory failure from above, POA, slowly improving -Sepsis from above, POA -possible acute on chronic, Chronic congestive heart failure from diastolic dysfunction EF 50-55%, -stabilized -Chronic L1 compression fracture -COPD in a nonsmoker -Obstructive sleep apnea does not use CPAP machine -Chronic narcolepsy -Chronic bladder dysfunction with the stimulator urine-coronary artery disease with a history of bypass -Permanent pacemaker -Chronic hypercapnic respiratory failure on oxygen -Chronic fibromyalgia -Renal cell carcinoma with right nephrectomy -GERD -restless leg syndrome -Patient had tooth extracted couple of days ago. -Acute kidney injury, likely prerenal -Chronic thrombocytopenia from chronic liver disease Plan: Sr. patient over to oral Augmentin tomorrow. Switched over to Lasix in the morning. Repeat labs. Hopefully can be discharged tomorrow.
[2020-04-01] MEDS: AMOXIC-POT CLAV 875-125MG 1 EACH TAB PO SCH (20:10)
[2020-04-01] MEDS: traZODone HCL 50 MG TAB PO SCH (20:10)
[2020-04-01] MEDS: SODIUM CHLORIDE 0.9% 250 ML IV SCH ×2 (21:32→21:33)
[2020-04-02] MEDS: PANTOPRAZOLE 40 MG TABLET PO SCH (06:23)
[2020-04-02 07:37] LABS: Calcium 8.1 mg/dL (8.4-10.2); Potassium 3.6 mmol/L (3.5-5.1)
[2020-04-02] MEDS: ALBUTEROL HFA INHALER INHALATION SCH ×2 (07:38→11:17)
[2020-04-02 08:58] VITALS: RESP 18
[2020-04-02] MEDS ORDERED: FUROSEMIDE 10 MG/ML 4 ML VIAL IV SCH (09:00)
[2020-04-02] MEDS ORDERED: FOLIC ACID 1 MG TAB PO SCH (09:00)
[2020-04-02] MEDS ORDERED: FUROSEMIDE 40 MG TAB PO SCH (09:00)
--- NOTE | 2020-04-02 09:32 | CDI ---
Documentation Clarification Form Date: 04/02/2020 07:43:41 AM From: Britany Kessler RN CCDS Admit Date: 03/27/2020 11:34:00 PM Patient Name: Krista Carrera Visit Number: [id number] Discharge Date: ATTENTION: The Clinical Documentation Specialists (CDI) and [facility] Coding Staff appreciate your assistance in clarifying documentation. Please respond to the clarification below the line at the bottom and electronically sign. The CDI & [facility] Coding staff will review the response and follow-up if needed. Please note: Queries are made part of the Legal Health Record. If you have any questions, please contact the author of this message via ITS. Dr. Nasim Colon Coding guidelines do not allow coding professionals to code based on laboratory results; therefore, your input is requested. The COVID-19 test obtained on 03/27 was reported as Negative on 03/27 Per Pulmonary Progress notes 03/29, 03/30, 03/31, 04/01 COVID 19 PCR negative, however COVID 19 is not entirely ruled out. It is still possible. 69-year-old female presents to the ED via EMS from [facility] for altered mental status and shortness of breath. Medical History, chronic respiratory failure, CAD with bypass, Permanent pacemaker, CHF, Clinical Indicators Patient reported tired, congested chest. 03/27 CXR: Pulmonary edema, bilateral airspace infiltrates in the lower lobes. 03/31 CXR: Worsening opacity on the right. Opacity on left unchanged. 03/27 VS in ED Triage: BP: 97.82 T: 100.7, P:83, R 30, Sat 96% on 15L Non- Rebreather. 03/27 Wbc 7.6, Lymphocytes 0.4, Alk Phos 230, PBNP 2650, Treatment: 03/28 Lasix Iv Q12 changed 03/30 Daily, changed 04/02 to oral daily 03/28 Ventolin Inhaler TID, Duoneb TID 03/28 Azithromycin Ivpb x1, Vancomycin Ivpb x2, Cefepime Ivpb Q8, d/c 03/31, 03/30 Zosyn Ivpb Q 8Hr d/c 04/01 In order to capture the severity of condition, please clarify the COVID-19 status: COVID-19 ruled out False negative, treating for COVID-19 based on these clinical indicators: Other, please specify ____ (Last Form Revision: January 2020) COVID-19 ruled out MTDD
[2020-04-02] MEDS: CARBIDOPA-LEVODOPA 25-250 MG 1 EACH TAB PO SCH ×2 (09:39→17:11)
[2020-04-02] MEDS: ESCITALOPRAM 20 MG TAB PO SCH (09:39)
[2020-04-02] MEDS: ALLOPURINOL 100 MG TAB PO SCH (09:39)
[2020-04-02] MEDS: HYDROcodone/APAP 10-325MG 1 EACH TAB PO SCH ×2 (09:40→16:56)
[2020-04-02] MEDS: METOPROLOL TARTRATE 25 MG TAB PO SCH ×2 (09:40→13:07)
[2020-04-02] MEDS: FERROUS SULFATE 325 MG TAB PO SCH (09:40)
[2020-04-02] MEDS: MODAFINIL 100 MG TAB PO SCH (09:41)
[2020-04-02] MEDS: GABAPENTIN 100 MG CAP PO SCH ×2 (09:41→16:56)
[2020-04-02] MEDS: LORATADINE 10 MG TAB PO SCH (09:42)
[2020-04-02 11:29] LABS: Protein, Total 5.2 g/dL (6.2-8.2)
--- NOTE | 2020-04-02 12:14 | P.PN ---
Subjective Progress Note Date: 04/02/20 is a 69-year-old female patient with a past medical history significant for coronary artery disease status post CABG, paroxysmal atrial fibrillation, status post permanent pacemaker implantation, chronic diastolic heart failure, chronic obstructive pulmonary disease, osteoarthritis, hypertension and dyslipidemia. The patient presented to the emergency department here at [facility] with complaints of respiratory distress, altered mental status and bleeding from her mouth. On arrival to the emergency department she was febrile with a temperature of 100.7F, she was hypotensive with blood pressure of 97/82, pulse rate of 83 and oxygen saturations were 96% on a nonrebreather mask. Her initial chest x-ray showed pulmonary edema and bilateral lower lobe pneumonia. For follow-up a computed tomography scan of her chest was completed which demonstrated extensive pulmonary airspace edema, and no evidence of pulmonary embolism. Computed tomography scan of her brain was negative. A 12-lead EKG was completed which showed an atrial paced rhythm heart rate 60 bpm. Initial laboratory results demonstrated a hemoglobin of 8.9, troponin to be negative, proBNP level 2650. She tested negative for COVID 19 virus. Due to her respiratory distress she was placed on BiPAP support and was started on antibiotics and IV Lasix. She was admitted to the hospital for further evaluation and treatment recommendations and cardiology was consulted for pulmonary edema and congestive heart failure. Patient was seen and examined yesterday in the intensive care unit, continued to be restless and having episodes of confusion, hemodynamically stable with no pressor support. Ant icoagulation continues to be on hold. Today the patient was seen and examined on the telemetry unit. Resting comfortably in bed, appears to be less restless today. Hemodynamically stable, blood cultures did not reveal any growth, continues to be on IV Lasix. BMP pending 04/02/2020 Patient seen and examined this morning, blood pressure 134/60 with a heart rate of 60, 97% on 3 L of oxygen. Patient is currently in a normal sinus rhythm. Sodium 143, potassium 3.6, BUN 37, creatinine 1.1. Objective - Vital Signs Vital signs: Vital Signs Temp 98.2 F 04/02/20 07:55 Pulse 59 L 04/02/20 07:55 Resp 18 04/02/20 07:55 BP 134/62 04/02/20 07:55 Pulse Ox 97 05/04/20 07:55 Intake & Output 04/01/20 04/02/20 04/02/20 18:59 06:59 18:59 Intake Total 300 150 Output Total 1000 675 Balance -700 -525 Weight 164 kg Intake: Intake, IV Titration 200 Amount Piperacillin-Tazobactam 3 200 .375 gm In Sodium Chloride 0.9% 100 ml @ 25 mls/hr IVPB Q8HR [facility]1983 Rx# :[id number] Oral 100 150 Output: Urine 1000 675 Other: Voiding Method Indwelling Catheter Indwelling Catheter Indwelling Catheter # Bowel Movements 1 - Exam GENERAL EXAM: Revealed a morbidly obese 69-year-old female in no acute distress. On 4 liters nasal cannula. Confused. HEENT: PERRLA, EOMI, neck is, short obese neck, no neck masses, no JVD, moist mucous membranes. CHEST: No chest wall deformity. Symmetrical expansion. LUNGS: Equal air entry minimal crackles at the bases no rhonchi and no wheezes. CVS: Regular rate and rhythm, normal S1 and S2, no gallops, no murmurs, no rubs ABDOMEN: Obese, Soft, nontender. No hepatosplenomegaly, normal bowel sounds, no guarding or rigidity. EXTREMITIES: No clubbing, 1+ lower extremity edema, no cyanosis, 2+ pulses and upper and lower extremities. Her lower extremities are positive for chronic venous stasis changes MUSCULOSKELETAL: Muscle strength and tone normal. SKIN: No rashes CENTRAL NERVOUS SYSTEM: Extremely confused today, otherwise no gross focal deficits. PSYCHIATRIC: Anxious mood, blunt affect. - Labs CBC & Chem 7: 03/31/20 05:12 04/02/20 06:34 Labs: Abnormal Lab Results - Last 24 Hours (Table) 03/31/20 04/02/20 Range/Units 05:12 06:34 Carbon Dioxide 32 H (22-30) mmol/L BUN 37 H (7-17) mg/dL Creatinine 1.16 H (0.52-1.04) mg/dL Calcium 8.1 L (8.4-10.2) mg/dL Total Protein (PEP) 5.2 L (6.2-8.2) g/dL Microbiology - Last 24 Hours (Table) 03/27/20 23:20 Blood Culture - Preliminary Blood No Growth after 120 hours 03/30/20 08:51 Gram Stain - Final Sputum Sputum Culture - Final Frieda albicans Assessment and Plan Plan: Assessment and plan: 1. Acute on chronic hypoxic respiratory failure, hemoptysis, hypotension, CTA negative for pulmonary embolism but does show pulmonary edema, echocardiogram showing preserved LV 2. systolic function but severely dilated RV with mild pulmonary hypertension, possibly secondary to pneumonia vs congestive heart failure secondary to diastolic dysfunction 3. Hypotension, elevated pro-calcitonin, febrile upon presentation, blood cultures pending, no growth after 72 hours, possible pneumonia/sepsis 4. Thrombocytopenia, acute on chronic 5. CAD status post CABG 6. Paroxysmal atrial fibrillation, on coagulation on hold due to anemia and hemoptysis 7. Status post permanent pacemaker implantation 8. Acute on chronic diastolic heart failure, echocardiogram shows EF 60-65% 9. Chronic obstructive pulmonary disease 10. Osteoarthritis 11. Dyslipidemia 12. Hypertension 13. Anemia Plan From cardiology's perspective, we'll follow this patient along with you now on an as-needed basis only, please don't hesitate to call if you have any questions. DNP note has been reviewed, I agree with a documented findings and plan of care. Patient was seen and examined.
[2020-04-02] MEDS: AMOXIC-POT CLAV 875-125MG 1 EACH TAB PO SCH (13:07)
[2020-04-02 13:35] VITALS: BMI 64.0
--- NOTE | 2020-04-02 13:36 | P.DS ---
Providers Date of admission: 03/27/20 23:34 Expected date of discharge: 04/02/20 Attending physician: Nasim Colon Consults: 03/27/20 23:33 Consult Physician Routine Consulting Provider: Chip James Consult Reason/Comments: Healthcare associated pneumonia, pulmonary edema Do you want consulting provider notified?: Yes Consult Physician Routine Consulting Provider: Jaya Hutchins Consult Reason/Comments: HCAP, pulmonary edema, CHF Do you want consulting provider notified?: Yes 03/30/20 09:28 Consult Physician Routine Consulting Provider: Neto Bowman Consult Reason/Comments: GFR borderline, need ok for PICC line Do you want consulting provider notified?: Already Contacted 03/30/20 15:31 Consult Physician Routine Consulting Provider: Devon Aguilar Consult Reason/Comments: severe thrombocytopenia Do you want consulting provider notified?: Yes Primary care physician: [facility] Course: Chief Complaint: Increased lethargy History of presenting complaint: This is a 69-year-old patient of Dr. Weiss whose chronic stable medical conditions include restless leg syndrome, GERD, renal cell carcinoma with right nephrectomy, fibromyalgia, chronic thrombocytopenia from chronic liver disease, chronic hypercapnic respiratory failure, permanent pacemaker, coronary artery disease with bypass, chronic bladder dysfunction, chronic narcolepsy, obstructive sleep apnea does not use CPAP, COPD, chronic L1 compression fracture, CHF from diastolic dysfunction EF 50-55%. Patient has been living at [facility]. Patient has chronic pain. Does follow with Dr. Rosales from pain services. Patient presented to the ER. Had been more tired lethargic. Also having some blood from the mouth. [facility] liaison informed me that patient had tooth pulled out couple of days ago. Also received eliquis. Patient had had been put on a BiPAP. Patient known to me from previous admissions. Patient is able to talk to me and communicate. Just feeling tired. Patient is a congested chest. Not really able to expectorate. Admitted with bilateral pneumonia, acute hypoxic and hypercapnic respiratory failure and sepsis. Started on BiPAP and IV cefepime. Patient also had some hemoptysis as patient was also on eliquis and also had a tooth pulled out 2 days ago.patient respiratory status worsened and had to be moved to the ICU. Thrombocytopenia from-chronic liver disease. Today-no new issues. Does tolerate her diet. Using nasal cannula. Care was discussed with the patient. Continue to hold of eliquis is platelets below 50. Overall prognosis guarded. Discussed this employment evaluator/case manager nurse and the patient. Discharge planning more than 35 minutes Consultation: Dr. James and colleagues from [facility] Dr. Bowman and associates from nephrology Dr. Aguilar from hematology Physical examination: VITAL SIGNS: L 97.9, 68, 16, 145/63, 96% on 4 L GENERAL: laying in bed, awake EYES: Pupils equal. Conjunctiva normal. HEENT: External appearance of nose and ears normal, oral cavity grossly normal. NECK: JVD unable to assess; masses not palpable. HEART: First and second heart sounds are normal; no edema. LUNGS: Respiratory rate increased; distant breath sounds. ABDOMEN: Soft, nontender, liver spleen not palpable, no masses palpable. PSYCH: [Able to answer simple questions INVESTIGATIONS, reviewed in the clinical context: Potassium 3.6 bun 37 creatinine 1.16 hemoglobin 7.9 platelets 34 Previous testing White count 7.6 hemoglobin 8.9 platelets 47 EKG tracing personally reviewed by me-shows atrial paced rhythm CT [place] chest-extensive pulmonary airspace/consolidation. No PE Computed tomography scan brain-without contrast-negative Chest x-ray film personally reviewed by me-bilateral infiltrates [id number], IgA-410, free Of the LC 9.52, free lambda LC 12.9 Assessment: -Bilateral pneumonia, suspect aspiration pneumonia including gram-negative organism, causing hemoptysis, POA, -Acute hypoxic respiratory failure from above, POA, -Sepsis from above, POA -possible acute on chronic, Chronic congestive heart failure from diastolic dysfunction EF 50-55%, -stabilized -Chronic L1 compression fracture -COPD in a nonsmoker -Obstructive sleep apnea does not use CPAP machine -Chronic narcolepsy -Chronic bladder dysfunction with the stimulator urine-coronary artery disease with a history of bypass -Permanent pacemaker -Chronic hypercapnic respiratory failure on oxygen -Chronic fibromyalgia -Renal cell carcinoma with right nephrectomy -GERD -restless leg syndrome -Patient had tooth extracted couple of days ago. -Acute kidney injury, likely prerenal -Chronic thrombocytopenia from chronic liver disease Disposition: ECF/[place] Aspiration precautions with feeding CBC BMP-5 days Patient Condition at Discharge: Stable Plan - Discharge Summary Discharge Rx Participant: No New Discharge Prescriptions: New Amoxic-Pot Clav 875-125Mg [Augmentin 875-125] 1 each PO Q12HR #10 tab Folic Acid 1 mg PO DAILY tab Continue Escitalopram [Lexapro] 20 mg PO DAILY@0800 Carbidopa/Levodopa [Sinemet 25-250 mg] 1 tab PO BID@0800,1700 Allopurinol [Zyloprim] 100 mg PO DAILY@0800 Isosorbide Mononitrate ER [Imdur] 30 mg PO DAILY@0800 Ferrous Sulfate [Iron] 325 mg PO DAILY@0800 Nitroglycerin Sl Tabs [Nitrostat] 0.4 mg SL Q5M PRN PRN Reason: Chest Pain Bisacodyl [Dulcolax] 10 mg RECTAL DAILY PRN PRN Reason: Constipation Atorvastatin [Lipitor] 40 mg PO DAILY@1700 Furosemide [Lasix] 20 mg PO DAILY@0800 Ipratropium-Albuterol Nebulize [Duoneb 0.5 mg-3 mg/3 ml Soln] 3 ml INHALATION RT-TID Modafinil [Provigil] 100 mg PO DAILY@0800 traZODone HCL 50 mg PO HS@2100 rOPINIRole HCL [Requip] 2 mg PO TID@0800,1700,2100 Magnesium Hydroxide [Milk of Magnesia Concentrate] 30 ml PO Q48H PRN PRN Reason: Constipation Nystatin 100,000 Unit/gm Powd [Mycostatin Powder] 1 applic TOPICAL Q8H PRN PRN Reason: under breasts/groin Na Phos,M-B/Na Phos,Di-Ba [Fleet Adult] 133 ml RECTAL DAILY PRN PRN Reason: Constipation Menthol [Biofreeze] 1 applic TOPICAL DAILY PRN PRN Reason: lower back pain Benzocaine 20 % Gel [Orajel] 1 applic PO DAILY PRN PRN Reason: broken&missing teeth pain Metoprolol Tartrate 25 mg PO TID@0800,1200,2000 Lactase [Lactaid] 3,000 unit PO TID@0800,1200,1700 Sodium Chloride [Clay] 1 spray EA NOSTRIL Q8H PRN PRN Reason: dry nose Caldesene Baby Powder 1 applic TOPICAL BID Fexofenadine HCl 180 mg PO DAILY Omeprazole 40 mg PO DAILY@0700 Gabapentin [Neurontin] 100 mg PO TID #9 cap HYDROcodone/APAP 10-325MG [[place] 10-325] 1 tab PO Q6H PRN #12 tab PRN Reason: Pain HYDROcodone/APAP 10-325MG [[place] 10-325] 1 tab PO BID@0800,1700 #6 tab Discontinued Apixaban [Eliquis] 5 mg PO BID@0800,1700 Lactase [Lactaid] 3,000 unit PO DAILY PRN PRN Reason: Lactose Intolerance Discharge Medication List Allopurinol [Zyloprim] 100 mg PO DAILY@0800 02/03/19 [History] Carbidopa/Levodopa [Sinemet 25-250 mg] 1 tab PO BID@0800,1700 02/03/19 [History] Escitalopram [Lexapro] 20 mg PO DAILY@0800 02/03/19 [History] Isosorbide Mononitrate ER [Imdur] 30 mg PO DAILY@0800 02/03/19 [History] Ferrous Sulfate [Iron] 325 mg PO DAILY@0800 03/01/19 [History] Nitroglycerin Sl Tabs [Nitrostat] 0.4 mg SL Q5M PRN 03/01/19 [History] Atorvastatin [Lipitor] 40 mg PO DAILY@1700 05/15/19 [History] Bisacodyl [Dulcolax] 10 mg RECTAL DAILY PRN 05/15/19 [History] Furosemide [Lasix] 20 mg PO DAILY@0800 07/05/19 [History] Ipratropium-Albuterol Nebulize [Duoneb 0.5 mg-3 mg/3 ml Soln] 3 ml INHALATION RT-TID 07/05/19 [History] Modafinil [Provigil] 100 mg PO DAILY@0800 08/02/19 [History] rOPINIRole HCL [Requip] 2 mg PO TID@0800,1700,2100 08/08/19 [History] traZODone HCL 50 mg PO HS@209908/08/19 [History] Magnesium Hydroxide [Milk of Magnesia Concentrate] 30 ml PO Q48H PRN 09/07/19 [History] Benzocaine 20 % Gel [Orajel] 1 applic PO DAILY PRN 11/11/19 [History] Menthol [Biofreeze] 1 applic TOPICAL DAILY PRN 11/11/19 [History] Na Phos,M-B/Na Phos,Di-Ba [Fleet Adult] 133 ml RECTAL DAILY PRN 11/11/19 [History] Nystatin 100,000 Unit/gm Powd [Mycostatin Powder] 1 applic TOPICAL Q8H PRN 11/11/19 [History] Lactase [Lactaid] 3,000 unit PO TID@0800,1200,1700 01/26/20 [History] Metoprolol Tartrate 25 mg PO TID@0800,1200,2000 01/26/20 [History] Caldesene Baby Powder 1 applic TOPICAL BID 03/27/20 [History] Fexofenadine HCl 180 mg PO DAILY 03/27/20 [History] Omeprazole 40 mg PO DAILY@0700 03/27/20 [History] Sodium Chloride [Clay] 1 spray EA NOSTRIL Q8H PRN 03/27/20 [History] Amoxic-Pot Clav 875-125Mg [Augmentin 875-125] 1 each PO Q12HR #10 tab 04/02/20 [Rx] Folic Acid 1 mg PO DAILY tab 04/02/20 [Rx] Gabapentin [Neurontin] 100 mg PO TID #9 cap 04/02/20 [Rx] HYDROcodone/APAP 10-325MG [[place] 10-325] 1 tab PO BID@0800,1700 #6 tab 04/02/20 [Rx] HYDROcodone/APAP 10-325MG [[place] 10-325] 1 tab PO Q6H PRN #12 tab 04/02/20 [Rx] Follow up Appointment(s)/Referral(s): Devon Aguilar MD [STAFF PHYSICIAN] - 2 Weeks Jason Weiss DO [Primary Care Provider] - 1-2 days Activity/Diet/Wound Care/Special Instructions: cbc- bmp - 5 days
--- NOTE | 2020-04-02 13:49 | P.PN ---
Subjective Progress Note Date: 04/02/20 Principal diagnosis: hypoxia, hypercapneic, pancytopenia Patient is alert when seen, calling out for help, wanted something to drink. She seemed to understand some of her situation, but certainly not all of it. She is not clear of any of her diagnoses. Objective - Vital Signs Vital signs: Vital Signs Temp 98.2 F 04/02/20 07:55 Pulse 59 L 04/02/20 07:55 Resp 18 04/02/20 07:55 BP 134/62 04/02/20 07:55 Pulse Ox 97 04/02/20 07:55 Intake & Output 04/01/20 04/02/20 04/02/20 18:59 06:59 18:59 Intake Total 300 150 Output Total 1000 675 Balance -700 -525 Weight 164 kg 164 kg Intake: Intake, IV Titration 200 Amount Piperacillin-Tazobactam 3 200 .375 gm In Sodium Chloride 0.9% 100 ml @ 25 mls/hr IVPB Q8HR [facility] Rx# :[id number] Oral 100 150 Output: Urine 1000 675 Other: Voiding Method Indwelling Catheter Indwelling Catheter Indwelling Catheter # Bowel Movements 1 1 - Constitutional General appearance: Present: disheveled, mild distress, morbidly obese - EENT Eyes: Present: anicteric sclerae, EOMI, poor dentition ENT: Present: hearing grossly normal - Respiratory Respiratory: bilateral: diminished, rales (few scattered) - Cardiovascular Heart sounds: normal: S1, S2 Abnormal Heart Sounds: Present: systolic murmur - Peripheral edema leg Peripheral Edema: bilateral: Trace - Gastrointestinal General gastrointestinal: Present: normal bowel sounds, soft. Absent: absent marcelle wel sounds, decreased bowel sounds, distended, hepatomegaly, hyperactive bowel sounds, organomegaly, rigid, scaphoid, splenomegaly, tenderness, umbilical hernia, ventral hernia - Integumentary Integumentary Comment(s): BLE bronzing secondary to vascular insufficiency - Musculoskeletal Musculoskeletal: Present: generalized weakness - Psychiatric Psychiatric: Present: A&O x's 3. Absent: intact judgment & insight - Labs CBC & Chem 7: 03/31/20 05:12 04/02/20 06:34 Labs: Abnormal Lab Results - Last 24 Hours (Table) 03/31/20 04/02/20 Range/Units 05:12 06:34 Carbon Dioxide 32 H (22-30) mmol/L BUN 37 H (7-17) mg/dL Creatinine 1.16 H (0.52-1.04) mg/dL Calcium 8.1 L (8.4-10.2) mg/dL Total Protein (PEP) 5.2 L (6.2-8.2) g/dL Microbiology - Last 24 Hours (Table) 03/27/20 23:20 Blood Culture - Preliminary Blood No Growth after 120 hours 03/30/20 08:51 Gram Stain - Final Sputum Sputum Culture - Final Frieda albicans Assessment and Plan (1) Pancytopenia Narrative/Plan: WBC slightly low, with adequate ANC at this time, no intervention Low Hgb and platelets at baseline secondary to CKD and cirrhosis, currently exacerbated by acute illness. No transfusions needed at this time. Would recommend CBC 1-2 times a week to ensure counts return to baseline. Also, anticoagulation needs to be held for platelet <50,000. D/W IM. Pt ok from a Hem standpoint for DC Current Visit: Yes Status: Chronic Priority: Medium Code(s): D61.818 - OTHER PANCYTOPENIA SNOMED Code(s): 934360124
[2020-04-02 13:59] LABS: Albumin 2.27 g/dL (3.80-4.90); Gamma Globulin 1.66 g/dL (0.70-1.50)
--- NOTE | 2020-04-02 14:37 | P.PN ---
Subjective Progress Note Date: 04/02/20 Principal diagnosis: Acute hypoxic respiratory failure secondary to pneumonia and acute diastolic congestive heart failure 69-year-old white female patient of resident of a local intermediate with past medical history of CAD status post bypass grafting, obstructive sleep apnea on CPAP therapy and home oxygen, history of COPD, narcolepsy, chronic kidney disease with history of previous nephrectomy and bladder stimulator placement. Other history includes chronic back pain, frequent falls, osteoporosis, paroxysmal atrial fibrillation. Patient was brought into the hospital per EMS on 03/27/2020 for evaluation of altered mental status, shortness of breath and some oral cavity bleeding. Patient was very confused, agitated, tachypneic, and had some dried blood around the lips. She is a poor historian, she did have low-grade fever with a temp of 100.7F, she was tachypneic, she was placed on BiPAP support. ABG was obtained showing pO2 111, pCO2 46, pH of 7.42, mild CO2 retention, was done on FiO2 of 45%. White blood cell count was within normal limits at 7.6, hemoglobin was 8.9, INR was 1.2, sodium is 142, potassium is 4.3, chloride is 106, CO2 31, BUN was 27, creatinine is 1.02, plasma lactic acid was normal at 1.7, troponin was less than 0.012, proBNP was 2650. Carvajal virus PCR was negative, urinalysis was negative for any sign of infection. Chest x-ray s howed cardiomegaly, pulmonary edema, bilateral airspace infiltrates in the lower lobes, presence of a left axillary pacemaker. Brain CT showed no intracranial abnormality. CT angiogram of the chest showed extensive pulmonary airspace edema, with the possibility of CHF or ARDS, no evidence of pulmonary embolism. Patient is already on Eliquis for history of paroxysmal atrial fibrillation. She was hypotensive in the emergency department with a blood pressure as low as 72/35 on presentation, which seems to have recovered, lactic acid is within normal limits, she was started on empiric antibiotics, Cefepime and Vancomycin, Protonix at the level is pending, blood cultures have been sent Patient was reevaluated today on 03/29/20, patient was transferred last night to the ICU because she was noted to have low blood pressure, and her O2 saturation was marginal. Patient received a fluid bolus, did not require any pressors. Her ABG showed a pO2 of 86 pCO2 of 51 pH of 7.37, patient was placed on BiPAP, and overnight did not require intubation or mechanical ventilation. I saw this patient this morning in the ICU, she seems to be doing reasonably well. Patient denies any shortness of breath, she is now back on her nasal cannula although she was on BiPAP overnight. Patient is known to have history of obstructive sleep apnea syndrome, and supposed to be on BiPAP at home. All labs today were reviewed, hemoglobin is 8. WBC count is 4.9. Basic metabolic profile is normal, slight worsening in her renal profile with creatinine up to 1.26 most likely related to diuretics. Remains on Lasix at 40 mg IV push every 12 hours, follow-up chest x-ray today showed cardiomegaly, low lung volumes, and bilateral lower lobe infiltrates. Differential diagnoses includes congestive heart failu re, pneumonia, possible covid 19 pneumonitis, although her initial screening was negative. Pro-calcitonin on admission was elevated at 1.09. Hence strongly suspect some component of pneumonia. Reevaluated today on 03/30/20, patient remains in the ICU, presently on nasal cannula, but she was on BiPAP last night. Her FiO2 was 45% IPAP of 14 and EPAP of 7 today on 3 L nasal cannula and her O2 saturation is 93%. Patient continues to have significantly abnormal chest x-ray suspicious for underlying pneumonia, underlying diastolic congestive heart failure is not entirely ruled out. Patient remains on Zosyn, and she remains on Lasix. Vancomycin and cefepime were discontinued. Patient is not requiring any pressors. She seems to be comfortable, in no form of respiratory distress at present. WBC count is 5 hemoglobin is 8.7. Basic metabolic profile is normal renal functioning is improving compared to yesterday, creatinine is 1.20 and it was 1.26 yesterday. Chest x-ray is showing slight improvement in her retrocardiac opacity, and right basilar opacity with trace of pleural pulmonary vascular congestion. And trace of pleural effusions. Patient was reevaluated today on 03/31/20, remains in the ICU, presently on nasal cannula, however on BiPAP at night. His BiPAP settings are 14/7 and 55%. Today she is on 4 L nasal cannula. Patient remains confused, restless, agitated, and recommended a trial of Haldol, and recommended stopping the Xanax for now. Depending on her response to Haldol, we'll decide whether to continue Haldol or use Ativan on this patient for intermittent episodes of agitation and confusion. Patient is hemodynamically stable, not requiring any pressors. Her CBC showed WBC count of 3.6 hemoglobin is 7.9, platelets are low at 54,000. Electrolytes are relatively normal, bicarb is 34, BUN is 35 creatinine is 1.39. Patient is being followed by hematology/oncology, she was found to have significantly elevated 3 And free lambda chains, entertaining the possibility of myeloma. Patient is also being followed by nephrology for nonoliguric acute kidney inj ury. Pulmonary-huynh, the patient is on few liters nasal cannula, in no form of respiratory distress, but today what is seems to be more important is her worsening confusion patient thinks that she is in a parking. Has no clue where she is and quite confused. The patient is seen today 04/01/2020 in follow-up on the selective care unit. She is currently resting comfortably in bed. A bit less restless today compared to yesterday. She has been initiated on Haldol. She is currently maintaining O2 saturations in the 90s on 4 L/m per nasal cannula. She's afebrile. Hemodynamically stable. Sputum culture positive for Frieda only. Blood cultures revealed no growth. No new labs today. She was given additional IV Lasix today. She remains on Zosyn. The patient is seen today 04/02/2020 follow-up on the selective care unit. She is a bit more awake and alert today. No worsening shortness of breath, cough or congestion. Continue O2 saturations in the 90s on 4 L/m per nasal cannula. She's been afebrile. Sputum culture positive for Frieda. Sodium 143. Potassium 3.6. Creatinine 1.16. She is currently on Augmentin. Objective - Vital Signs Vital signs: Vital Signs Temp 98.2 F 04/02/20 07:55 Pulse 59 L 04/02/20 07:55 Resp 18 04/02/20 07:55 BP 134/62 04/02/20 07:55 Pulse Ox 97 04/02/20 07:55 Intake & Output 04/01/20 04/02/20 04/02/20 18:59 06:59 18:59 Intake Total 300 150 Output Total 1000 675 Balance -700 -525 Weight 164 kg 164 kg Intake: Intake, IV Titration 200 Amount Piperacillin-Tazobactam 3 200 .375 gm In Sodium Chloride 0.9% 100 ml @ 25 mls/hr IVPB Q8HR [facility] Rx# :[id number] Oral 100 150 Output: Urine 1000 675 Other: Voiding Method Indwelling Catheter Indwelling Catheter Indwelling Catheter # Bowel Movements 1 1 - Exam GENERAL EXAM: Revealed a morbidly obese 69-year-old female in no acute distress. On 4 liters nasal cannula. More alert today but still confused. HEENT: PERRLA, EOMI, neck is, short obese neck, no neck masses, no JVD, moist mucous membranes. CHEST: No chest wall deformity. Symmetrical expansion. LUNGS: Equal air entry minimal crackles at the bases no rhonchi and no wheezes. CVS: Regular rate and rhythm, normal S1 and S2, no gallops, no murmurs, no rubs ABDOMEN: Obese, Soft, nontender. No hepatosplenomegaly, normal bowel sounds, no guarding or rigidity. EXTREMITIES: No clubbing, 1+ lower extremity edema, no cyanosis, 2+ pulses and upper and lower extremities. Her lower extremities are positive for chronic venous stasis changes MUSCULOSKELETAL: Muscle strength and tone normal. SKIN: No rashes CENTRAL NERVOUS SYSTEM: Extremely confused today, otherwise no gross focal deficits. PSYCHIATRIC: Anxious mood, blunt affect. - Labs CBC & Chem 7: 03/31/20 05:12 04/02/20 06:34 Labs: Abnormal Lab Results - Last 24 Hours (Table) 03/31/20 04/02/20 Range/Units 05:12 06:34 Carbon Dioxide 32 H (22-30) mmol/L BUN 37 H (7-17) mg/dL Creatinine 1.16 H (0.52-1.04) mg/dL Calcium 8.1 L (8.4-10.2) mg/dL Total Protein (PEP) 5.2 L (6.2-8.2) g/dL Albumin (PEP) 2.27 L (3.80-4.90) g/dL Osyus-5-[id number] 0.38 L (0.60-1.00) g/dL Gamma Globulins 1.66 H (0.70-1.50) g/dL Microbiology - Last 24 Hours (Table) 03/27/20 23:20 Blood Culture - Preliminary Blood No Growth after 120 hours Assessment and Plan Assessment: #1. Acute on chronic hypoxemic respiratory failure multifactorial, likely related to possibility of pneumonia, and acute exacerbation of CHF with diastolic dysfunction. COVID 19 PCR negative, however Covid 19 is not entirely ruled out. #2. Acute hypercapnic respiratory failure related to acute exacerbation of CHF and possibility of pneumonia, healthcare acquired. Positive pro calcitonin le tam. And I also suspect some component of obstructive sleep apnea syndrome. #3. Hypotension, possibly hypovolemic, secondary to aggressive diuresis. improved, patient did not require any pressors. #4. Altered mental status, metabolic encephalopathy, secondary to hypoxemia and hypercapnia. #5. Obstructive sleep apnea with nocturnal desaturation however patient was unable to complete a sleep study, unclear if she is still compliant with CPAP, but does wear home O2 at 2-3 L/m #6. Morbid obesity #7. Chronic pain syndrome #8. History of COPD with chronic hypoxic respiratory failure #9. History of narcolepsy #10. Hypertension #11. Chronic kidney disease, unspecified #12. History of renal cell cancer with history of right nephrectomy in 1971 #13. Macrocytic anemia #14. Chronic back pain, with history of lumbar disc disease, lumbar compression fracture #15. Gait dysfunction #16. Coronary artery disease with previous history of bypass grafting #17. History of myocardial infarction #18. History of paroxysmal atrial fibrillation, on Eliquis, and placement of permanent pacemaker #19. Poor baseline functional performance, gait dysfunction, patient is a resident of a local intermediate #20 abnormal protein electrophoresis, patient may have underlying myeloma, being addressed by hematology/oncology on the case. Recommendation: The patient was seen and evaluated by Dr. Cole Currently stable from the pulmonary and critical care standpoint Titrate down the FiO2 as tolerated Continue BiPAP support as needed Appears less restless with Haldol Plan is for discharge to [facility] Overall prognosis quite guarded and poor I, the cosigning physician, performed a history & physical examination of the patient. Lungs sounds with crackles in the bilateral posterior bases. Maintaining good O2 saturations in the 90s on 4 L/m per nasal cannula. I discus sed the assessment and plan of care with my nurse practitioner, Pretty Jerson. I attest to the above note as dictated by her.
[2020-04-02 16:04] VITALS: BP 119/56; PULSE 69; TEMP 97.4
--- NOTE | 2020-04-02 16:26 | PN ---
PROGRESS NOTE Patient is seen for followup for acute kidney injury. Renal function has improved. Creatinine is down to 1.1. She is being considered for discharge today. PHYSICAL EXAMINATION: On examination, blood pressure was 134/62, heart rate of 59 per minute. Patient is afebrile. She is comfortable, awake, not in any acute distress. Edema 2+ bilaterally. Legs are wrapped. Abdomen is soft, obese, nontender. [employer]ATOR exam is grossly intact. LABS: Sodium 143, potassium 3.6, chloride 104, BUN 37, creatinine 1.16. ASSESSMENT: 1. Acute kidney injury, stable and improved. 2. Volume overload, improved since admission. 3. Chronic kidney disease, stage III. Baseline creatinine 1.2, associated with solitary left kidney. 4. Pneumonia, maintained on antibiotics. COVID negative. 5. Diastolic heart failure. PLAN: Continue current dose of diuretics. Okay for discharge from nephrology standpoint. Follow up as outpatient. MMODL / IJN: [id number] /
[2020-04-02] MEDS: ATORVASTATIN 40 MG TAB PO SCH (16:56)
--- NOTE | 2020-04-05 09:39 | CDI ---
Documentation Clarification Form Date: 04/05/20 From: Estee Andersen Phone: If you have a question about this query, please contact Gale Dunham, Blanket Cutter Hand at [phone] between 8am and 5pm. Admit Date: 03/27/20 Discharge Date:04/02/20 Patient Name: Krista Carrera Visit Number: [id number] ATTENTION: The Clinical Documentation Specialists (CDI) and [facility] Coding Staff appreciate your assistance in clarifying documentation. Please respond to the clarification below the line at the bottom and electronically sign. The CDI & [facility] Coding staff will review the response and follow-up if needed. Please note: Queries are made part of the Legal Health Record. If you have any questions, please contact the author of this message via ITS. Dear Dr. Colon Hypotension is documented in cardiology and pulmonary consult notes and progress notes and in nephrology progress notes. Hypotension possibly hypovolemic secondary to aggressive diuresis is documented in Dr. James's consult note and progress notes, Dr. Aguilar's consult note and Dr. Cole's progress note. Patient history/risk factors: Sepsis, hypovolemia, acute on chronic diastolic CHF, aspiration and gram negative pneumonia, CARLITOS/ATN, metabolic encephalopathy, acute on chronic renal failure. Clinical Indicators: Decreased blood pressure Vitals: T. 100.7, P. 83, R. 30, BP 97/82 Blood Pressure: In the ER - 97/82, 72/35, 94/37, 103/60; 03/28/20 - 71/43,78/46, 78/32, 97/54, 85/32, 93/39, 89/50, 85/51, 82/45, 94/45 Treatment: IV Norepinephrine In your professional opinion, can you please specify the type of shock if known? Septic Shock Suspected or known causative organism Any associated organ failure Cardiogenic Shock Cause Hypovolemic Shock Cause Other, please specify Unable to determine Septic shock MTDD
== END 2020-04-02 18:20 | DRG 871 ==
LOC: EC 19:50 → 3SCARD 23:34 → 2SICU 03-28 21:29 → 3SCARD 03-31 13:39
PROVIDERS: ADMIT Hospitalist; ATTEND Hospitalist
PROC: 5A09357 Assistance with Respiratory Ventilation, Less than 24 Consecutive Hours, Continuous Positive Airway Pressure (ICD-10-PCS; 2020-03-27)
PROC: 3E033XZ Introduction of Vasopressor into Peripheral Vein, Percutaneous Approach (ICD-10-PCS; 2020-03-29)
PROC: 05HY33Z Insertion of Infusion Device into Upper Vein, Percutaneous Approach (ICD-10-PCS; principal; 2020-03-29 12:45)
DX: A41.50 Gram-negative sepsis, unspecified (principal); G93.41 Metabolic encephalopathy; I50.33 Acute on chronic diastolic (congestive) heart failure; J69.0 Pneumonitis due to inhalation of food and vomit; J15.6 Pneumonia due to other Gram-negative bacteria; J96.21 Acute and chronic respiratory failure with hypoxia; J96.22 Acute and chronic respiratory failure with hypercapnia; N17.0 Acute kidney failure with tubular necrosis; R65.21 Severe sepsis with septic shock; D61.818 Other pancytopenia; I13.0 Hypertensive heart and chronic kidney disease with heart failure and stage 1 through stage 4 chronic kidney disease, or unspecified chronic kidney disease; J44.0 Chronic obstructive pulmonary disease with (acute) lower respiratory infection; E87.2 Acidosis; K76.6 Portal hypertension; M48.56XA Collapsed vertebra, not elsewhere classified, lumbar region, initial encounter for fracture; R04.2 Hemoptysis; Z68.44 Body mass index [BMI] 60.0-69.9, adult; I27.20 Pulmonary hypertension, unspecified; Z20.828 Contact with and (suspected) exposure to other viral communicable diseases; D63.8 Anemia in other chronic diseases classified elsewhere; N18.3 Chronic kidney disease, stage 3 (moderate); D69.59 Other secondary thrombocytopenia; K74.60 Unspecified cirrhosis of liver; D53.9 Nutritional anemia, unspecified; E66.01 Morbid (severe) obesity due to excess calories; E78.5 Hyperlipidemia, unspecified; G25.81 Restless legs syndrome; G47.33 Obstructive sleep apnea (adult) (pediatric); G47.419 Narcolepsy without cataplexy; G89.4 Chronic pain syndrome; I25.10 Atherosclerotic heart disease of native coronary artery without angina pectoris; I25.2 Old myocardial infarction; I48.0 Paroxysmal atrial fibrillation; K21.9 Gastro-esophageal reflux disease without esophagitis; M19.90 Unspecified osteoarthritis, unspecified site; M79.7 Fibromyalgia; M81.0 Age-related osteoporosis without current pathological fracture; T50.2X5A Adverse effect of carbonic-anhydrase inhibitors, benzothiadiazides and other diuretics, initial encounter; F41.9 Anxiety disorder, unspecified; G43.909 Migraine, unspecified, not intractable, without status migrainosus; K58.9 Irritable bowel syndrome, unspecified; M10.9 Gout, unspecified; M47.9 Spondylosis, unspecified; R29.6 Repeated falls; R33.9 Retention of urine, unspecified; R26.9 Unspecified abnormalities of gait and mobility; R32 Unspecified urinary incontinence; M51.36 Other intervertebral disc degeneration, lumbar region; Z79.01 Long term (current) use of anticoagulants; Z79.899 Other long term (current) drug therapy; Z88.2 Allergy status to sulfonamides; Z91.013 Allergy to seafood; Z90.5 Acquired absence of kidney; Z95.0 Presence of cardiac pacemaker; Z95.1 Presence of aortocoronary bypass graft; Z85.528 Personal history of other malignant neoplasm of kidney; Z99.81 Dependence on supplemental oxygen; Z98.42 Cataract extraction status, left eye; Z98.41 Cataract extraction status, right eye; Z96.1 Presence of intraocular lens; Z90.49 Acquired absence of other specified parts of digestive tract; Z82.49 Family history of ischemic heart disease and other diseases of the circulatory system; Z83.3 Family history of diabetes mellitus; Z84.1 Family history of disorders of kidney and ureter; Y95 Nosocomial condition
CPT/HCPCS: 36410; 36415; 36600; 70450; 71045; 71275; 76937; 80048; 80053; 81003; 82607; 82728; 82746; 82784; 82805; 83540; 83550; 83605; 83615; 83735; 83880; 83883; 84145; 84165; 84484; 85025; 85027; 85045; 85610; 85730; 86334; 87040; 87070; 87205; 87635; 93005; 93306; 94003; 94640; 94660; 96365; 96368; 96375; 96376; 99285